=== PATIENT | male | born 1950 | race African-American/Black ===

== ENCOUNTER 2016-11-04 22:27 | Inpatient (IN) | payer MEDICARE ==
[2016-11-05 01:12] LABS: VENOUS BLOOD BASE EXCESS 0.6 mmol/L; VENOUS BLOOD HCO3 23.7 mmol/L (20-32); VENOUS BLOOD PCO2 33.4 mmHg (35-63); VENOUS BLOOD PH 7.47 (7.30-7.42)
[2016-11-05 01:13] LABS: HEMOGLOBIN 12.8 g/dL (13.5-17.0); HGB HCT DIFFERENCE 0.4; MEAN CORPUSCULAR HEMOGLOBIN 29.5 pg (27.0-33.4); MEAN CORPUSCULAR HGB CONC 33.7 g/dL (32.0-36.0); MEAN CORPUSCULAR VOLUME 88 fl (80-97); RED BLOOD COUNT 4.33 10^6/uL (4.35-5.55); RED CELL DISTRIBUTION WIDTH 14.8 % (11.5-14.0); WHITE BLOOD COUNT 10.3 10^3/uL (4.0-10.5)
[2016-11-05] MEDS ORDERED: NORMAL SALINE 1000 ML 1,000 ML IV ONE (01:15)
[2016-11-05] MEDS ORDERED: ACETAMINOPHEN 325 MG TABLET PO ONE (01:16)
[2016-11-05] MEDS ORDERED: CEFEPIME 2 GM/D5W RTU 50 ML IV ONE (01:17)
--- NOTE | 2016-11-05 01:17 | ER Document Report ---
ED General - General Chief Complaint: Fever Stated Complaint: BODY PAIN,CHILLS Notes: Patient is a 66-year-old male with past medical history of prostate cancer, currently taking an oral chemotherapy agent who presents with 24 hours of fever , rigors, generalized fatigue, nonproductive cough, and diarrhea. No known sick contacts. No recent history of similar illness. States that the symptoms of gotten progressively worse since onset. Nothing improves or worsens the symptoms. He has not spoken to his primary care physician regarding today's concerns. He denies any headache, neck pain, dysuria, hematuria, abdominal pain. No surgical history. TRAVEL OUTSIDE OF THE [place] IN LAST 30 DAYS: No - Related Data Allergies/Adverse Reactions: No Known Allergies Allergy (Verified 04/17/14 18:06) Past Medical History - General Information source: Patient, Relative - Social History Smoking Status: Never Smoker Frequency of alcohol use: None Drug Abuse: None Lives with: Family Family History: Reviewed & Not Pertinent, Hypertension - Past Medical History Cardiac Medical History: Reports: Hx Hypercholesterolemia Denies: Hx Coronary Artery Disease, Hx Heart Attack, Hx Hypertension Pulmonary Medical History: Denies: Hx Asthma, Hx Bronchitis, Hx COPD, Hx Pneumonia Neurological Medical History: Denies: Hx Cerebrovascular Accident, Hx Seizures Renal/ Medical History: Reports: Hx Benign Prostatic Hyperplasia Malignancy Medical History: Reports Hx Prostate Cancer GI Medical History: Denies: Hx Hepatitis, Hx Hiatal Hernia, Hx Ulcer Musculoskeltal Medical History: Denies Hx Arthritis, Reports Hx Musculoskeletal Deformity, Reports Hx Musculoskeletal Trauma Infectious Medical History: Denies: Hx Hepatitis Past Surgical History: Reports: Hx Genitourinary Surgery - TURP, Hx Orthopedic Surgery - Lt knee. Denies: Hx Open Heart Surgery, Hx Pacemaker - Immunizations Immunizations up to date: No Hx Diphtheria, Pertussis, Tetanus Vaccination: No Review of Systems - Review of Systems Notes: Constitutional: Positive for fever. HENT: Negative for sore throat. Eyes: Negative for visual changes. Cardiovascular: Negative for chest pain. Respiratory: Negative for shortness of breath. Positive for cough Gastrointestinal: Negative for abdominal pain, vomiting. Positive for diarrhea Genitourinary: Negative for dysuria. Musculoskeletal: Negative for back pain. Skin: Negative for rash. Neurological: Negative for headaches, weakness or numbness. 10 point ROS negative except as marked above and in HPI. Physical Exam - Vital signs Vitals: Temp Pulse Resp BP Pulse Ox 102.7 F H 141 H 22 H 106/78 96 11/04/16 23:06 11/04/16 23:06 11/04/16 23:06 11/04/16 23:06 11/04/16 23:06 Interpretation: Tachycardic, Tachypneic, Febrile Notes: PHYSICAL EXAMINATION: GENERAL: Ill-appearing but in no acute distress HEAD: Atraumatic, normocephalic. EYES: Pupils equal round and reactive to light, extraocular movements intact, sclera anicteric, conjunctiva are normal. ENT: nares patent, oropharynx clear without exudates. Dry mucous membranes. NECK: Normal range of motion, supple without lymphadenopathy LUNGS: Breath sounds clear to auscultation bilaterally and equal. No wheezes rales or rhonchi. HEART: Regular tachycardia without murmurs ABDOMEN: Soft, nontender, normoactive bowel sounds. No guarding, no rebound. No masses appreciated. EXTREMITIES: Normal range of motion, no pitting or edema. No cyanosis. NEUROLOGICAL: No focal neurological deficits. Moves all extremities spontaneously and on command. PSYCH: Normal mood, normal affect. SKIN: Warm, Dry, normal turgor, no rashes or lesions noted. Course - Re-evaluation Re-evalutation: 11/05/16 01:16 Patient arrives meeting Sirs criteria without an obvious source of this time. Full septic workup has been ordered. He is in no acute distress but does have tachycardia with associated fever. Concern for influenza versus pneumonia based on clinical history. IV fluids and antipyretics have been ordered. - Vital Signs Vital signs: Temp Pulse Resp BP Pulse Ox 102.7 F H 141 H 22 H 106/78 96 11/04/16 23:06 11/04/16 23:06 11/04/16 23:06 11/04/16 23:06 11/04/16 23:06 - Laboratory Result Diagrams: 11/04/16 00:45 11/04/16 00:45 Laboratory results interpreted by me: 11/04/16 11/04/16 11/04/16 00:45 00:45 00:45 RBC 4.33 L Hgb 12.8 L RDW 14.8 H Seg Neuts % (Manual) 87 H Band Neutrophils % 1 L Lymphocytes % (Manual) 5 L Abs Neuts (Manual) 9.1 H VBG pH 7.47 H VBG pCO2 33.4 L Potassium 3.3 L Glucose 112 H Urine Blood 11/05/16 02:20 RBC Hgb RDW Seg Neuts % (Manual) Band Neutrophils % Lymphocytes % (Manual) Abs Neuts (Manual) VBG pH VBG pCO2 Potassium Glucose Urine Blood LARGE H Discharge - Discharge Clinical Impression: Sepsis Qualifiers: Sepsis type: sepsis due to unspecified organism Qualified Code(s): A41.9 - Sepsis, unspecified organism Condition: Fair Disposition: ADMITTED INPATIENT Admitting Provider: [facility] Unit Admitted: Telemetry
[2016-11-05 01:20] LABS: PROTHROMBIN TIME 12.9 SEC (11.4-15.4)
[2016-11-05 01:33] LABS: BAND NEUTROPHILS % (MANUAL) 1 % (3-5); BASOPHILS % (MANUAL) 1 % (0-2); EOSINOPHILS % (MANUAL) 0 % (0-6); LYMPHOCYTES % (MANUAL) 5 % (13-45); TOTAL CELLS COUNTED 100
[2016-11-05 01:34] LABS: ALANINE AMINOTRANSFERASE 31 U/L (21-72); ALBUMIN 3.9 g/dL (3.5-5.0); ALKALINE PHOSPHATASE 47 U/L (38-126); ANION GAP 14 (5-19); ANISOCYTOSIS SLIGHT; ASPARTATE AMINO TRANSFERASE 26 U/L (17-59); BILIRUBIN,TOTAL 0.5 mg/dL (0.2-1.3); BLOOD UREA NITROGEN 13 mg/dL (7-20); CALCIUM 9.5 mg/dL (8.4-10.2); CARBON DIOXIDE 23 mmol/L (22-30); CHLORIDE 106 mmol/L (98-107); GLUCOSE 112 mg/dL (75-110); POTASSIUM 3.3 mmol/L (3.6-5.0); SODIUM 142.5 mmol/L (137-145); TOTAL PROTEIN 6.6 g/dL (6.3-8.2)
[2016-11-05] MEDS ORDERED: CEFEPIME INJ 2 GM VIAL ONE (01:44)
[2016-11-05 02:41] LABS: APPEARANCE,URINE CLEAR; BILIRUBIN,URINE NEGATIVE (NEGATIVE); GLUCOSE, URINE NEGATIVE (NEGATIVE); KETONES,URINE NEGATIVE (NEGATIVE); LEUKOCYTE ESTERASE,URINE NEGATIVE (NEGATIVE); NITRITE,URINE NEGATIVE (NEGATIVE); PROTEIN,URINE NEGATIVE (NEGATIVE); URINE SPECIFIC GRAVITY 1.016; UROBILINOGEN,URINE NEGATIVE mg/dL (<2.0)
[2016-11-05] MEDS ORDERED: LEVOFLOXACIN 750 MG/D5W RTU 150 ML IV ONE (02:54)
[2016-11-05] MEDS ORDERED: IBUPROFEN 600 MG TABLET PO ONE (03:05)
[2016-11-05] MEDS ORDERED: 1/2 NORMAL SALINE 1,000 ML IV PRN (04:25)
[2016-11-05] MEDS ORDERED: NORMAL SALINE 1000 ML 1,000 ML IV PRN ×2 (04:27→05:46)
[2016-11-05] MEDS ORDERED: AMPICILLIN SODIUM/SULBACTAM NA 3 GM in NORMAL SALINE 100 ML IV SCH (06:00)
[2016-11-05] MEDS ORDERED: AMPICILLIN SOD/SULBACTAM 3 GM VIAL IV PRN (06:11)
[2016-11-05] MEDS: METRONIDAZOLE 500 MG/NS RTU 100 ML IV SCH ×3 (06:38→17:18)
[2016-11-05 07:12] LABS: MAGNESIUM 1.4 mg/dL (1.6-2.3); PHOSPHORUS 2.2 mg/dL (2.5-4.5)
[2016-11-05 07:42] LABS: THYROID STIMULATING HORMONE 0.86 uIU/mL (0.47-4.68)
[2016-11-05] MEDS: ENOXAPARIN SODIUM INJ 40 MG/0.4 ML DISP.SYRIN SUBCUT SCH (08:11)
[2016-11-05] MEDS: ACETAMINOPHEN 325 MG TABLET PO PRN (08:11)
--- NOTE | 2016-11-05 09:25 | EKG REPORT ---
SEVERITY:- OTHERWISE NORMAL ECG - SINUS TACHYCARDIA : Confirmed by: Foreign Cortes MD 05-Nov-2016 09:24:50
[2016-11-05] MEDS: AMPICILLIN SODIUM/SULBACTAM NA 3 GM in NORMAL SALINE 100 ML IV SCH ×2 (09:33→15:29)
[2016-11-05 16:00] LABS: ABSOLUTE LYMPHOCYTES (AUTO) 0.7 10^3/uL (0.5-4.7); ABSOLUTE MONOCYTES (AUTO) 0.9 10^3/uL (0.1-1.4); ABSOLUTE NEUT (AUTO) 4.7 10^3/uL (1.7-8.2); BASOPHILS % (AUTO) 0.4 % (0-2); EOSINOPHILS % (AUTO) 0.5 % (0-6); HEMATOCRIT 34.1 % (37.9-51.0); HEMOGLOBIN 11.5 g/dL (13.5-17.0); HGB HCT DIFFERENCE 0.4; LYMPHOCYTES % (AUTO) 11.4 % (13-45); MEAN CORPUSCULAR HEMOGLOBIN 29.6 pg (27.0-33.4); MEAN CORPUSCULAR HGB CONC 33.6 g/dL (32.0-36.0); MEAN CORPUSCULAR VOLUME 88 fl (80-97); MONOCYTES % (AUTO) 14.7 % (3-13); RED BLOOD COUNT 3.87 10^6/uL (4.35-5.55); RED CELL DISTRIBUTION WIDTH 14.9 % (11.5-14.0); WHITE BLOOD COUNT 6.4 10^3/uL (4.0-10.5)
--- NOTE | 2016-11-05 16:20 | PDOC H&P ---
History of Present Illness Admission Date/PCP: 11/05/16 05:46 KENZIE DALTON History of Present Illness: MARIAA ALCANTAR JR is a 66 year old male. He has history of malignant neoplasm of the prostate gland, he is on monoclonal antibody for treatment of prostate cancer. He came to the emergency room with a one-day history of high fever with temperature 103, generalized body weakness, nonproductive cough and diarrhea. There is no history of recent travel, he has no pets. There is no apparent foci of infection, the chest x-ray was negative, on auscultation of his lung. He has bibasilar crackles and because of these CT chest was done and it showed minimal basilar pleural reaction and opacities, there is no masses or pneumothorax. The dipstick urinalysis did not suggest any infection. The abdomen is benign. There is no tenderness. There is no leukocytosis, the rapid flu test was negative. The high fever suggest infection, CT scan of the abdomen and pelvis will be requested to rule out intra-abdominal abscess though this is unlikely with benign examination of the abdomen Past Medical History Cardiac Medical History: Reports: Hyperlipidema Malignancy Medical History: Reports: Pancreatic Cancer Past Surgical History Past Surgical History: Reports: Orthopedic Surgery - Lt knee Social History Information Source: Patient Lives with: Family Smoking Status: Current Every Day Smoker Last Time Smoked: 50 Frequency of Alcohol Use: None Hx Recreational Drug Use: No Hx Prescription Drug Abuse: No - Advance Directive Resuscitation Status: Full Code Family History Family History: Reviewed & Not Pertinent, Hypertension Parental Family History Reviewed: Yes Children Family History Reviewed: Yes Sibling(s) Family History Reviewed.: Yes Medication/Allergy Home Medications: Enzalutamide [Xtandi] 80 mg PO DAILY 11/05/16 Prednisone 5 mg PO BID 11/05/16 Rosuvastatin Calcium 20 mg PO DAILY 11/05/16 Allergies/Adverse Reactions: No Known Allergies Allergy (Verified 11/05/16 04:25) Review of Systems Constitutional: PRESENT: chills, fatigue, fever(s), night sweats, weakness Eyes: ABSENT: visual disturbances Ears: ABSENT: hearing changes Cardiovascular: ABSENT: chest pain, dyspnea on exertion, edema, orthropnea, palpitations Respiratory: PRESENT: cough Gastrointestinal: ABSENT: abdominal pain, constipation, diarrhea, hematemesis, hematochezia, nausea, vomiting Genitourinary: ABSENT: dysuria, hematuria Musculoskeletal: ABSENT: joint swelling Integumentary: ABSENT: rash, wounds Neurological: ABSENT: abnormal gait, abnormal speech, confusion, dizziness, focal weakness, syncope Psychiatric: ABSENT: anxiety, depression, homidical ideation, suicidal ideation Endocrine: ABSENT: cold intolerance, heat intolerance, menstrual abnormalities, polydipsia, polyuria Hematologic/Lymphatic: ABSENT: easy bleeding, easy bruising, lymphadenopathy Physical Exam Vital Signs: Temp Pulse Resp BP Pulse Ox 98.4 F 77 14 96/60 L 95 11/05/16 11:50 11/05/16 14:00 11/05/16 11:50 11/05/16 11:50 11/05/16 11:50 General appearance: PRESENT: no acute distress Eye exam: PRESENT: EOMI, PERRLA Mouth exam: PRESENT: moist Neck exam: PRESENT: full ROM Respiratory exam: PRESENT: crackles Cardiovascular exam: PRESENT: +S1, +S2 GI/Abdominal exam: PRESENT: normal bowel sounds, soft Rectal exam: PRESENT: deferred Neurological exam: PRESENT: alert, awake, oriented to person, oriented to place , oriented to time, oriented to situation, CN II-XII grossly intact. ABSENT: motor sensory deficit Psychiatric exam: PRESENT: appropriate affect, normal mood. ABSENT: suicidal ideation Skin exam: PRESENT: dry, intact, warm Results Laboratory Results: 11/05/16 11/05/16 11/05/16 06:28 06:28 06:28 Phosphorus 2.2 L Magnesium 1.4 L Ammonia 24.5 Amylase 43 Lipase 71.0 TSH 0.86 Free T4 0.70 L 11/05/16 11/05/16 11/05/16 06:28 06:28 12:56 Creatine Kinase 56 57 Troponin I < 0.012 11/05/16 12:56 Creatine Kinase Troponin I < 0.012 Impressions: Chest X-Ray 11/04/16 23:09 IMPRESSION: NO ACUTE RADIOGRAPHIC FINDING IN THE CHEST. Chest CT 11/05/16 00:00 IMPRESSION: Minimal bibasilar opacities and pleural reaction. Trace pericardial effusion. No pulmonary emboli. Minimal progression of thoracic bony metastatic disease. Assessment & Plan - Diagnosis (1) Fever Qualifiers: Fever type: unspecified Qualified Code(s): R50.9 - Fever, unspecified Is this a current diagnosis for this admission?: YesPlan: The differential diagnoses is long ,he will empirically be treated with IV antibiotic, Unasyn and CT scan of the abdomen and pelvis was ordered (2) Malignant neoplasm of prostate Is this a current diagnosis for this admission?: Yes
[2016-11-05 16:23] LABS: ALANINE AMINOTRANSFERASE 37 U/L (21-72); ALBUMIN 2.9 g/dL (3.5-5.0); ALKALINE PHOSPHATASE 38 U/L (38-126); ANION GAP 10 (5-19); ASPARTATE AMINO TRANSFERASE 30 U/L (17-59); BILIRUBIN,TOTAL 0.3 mg/dL (0.2-1.3); BLOOD UREA NITROGEN 12 mg/dL (7-20); CALCIUM 8.1 mg/dL (8.4-10.2); CARBON DIOXIDE 21 mmol/L (22-30); CHLORIDE 109 mmol/L (98-107); GLUCOSE 105 mg/dL (75-110); SODIUM 140.4 mmol/L (137-145); TOTAL PROTEIN 5.1 g/dL (6.3-8.2)
[2016-11-05 16:25] LABS: POTASSIUM 2.9 mmol/L (3.6-5.0)
[2016-11-05] MEDS ORDERED: (PENDING PHARMACY ID) (Rosuvastatin Calcium [Rosuvastatin Calcium] 20 MG) PO SCH (16:30)
[2016-11-05 17:51] LABS: APPEARANCE,URINE CLEAR; BILIRUBIN,URINE NEGATIVE (NEGATIVE); GLUCOSE, URINE NEGATIVE (NEGATIVE); KETONES,URINE NEGATIVE (NEGATIVE); LEUKOCYTE ESTERASE,URINE NEGATIVE (NEGATIVE); NITRITE,URINE NEGATIVE (NEGATIVE); PROTEIN,URINE NEGATIVE (NEGATIVE); URINE SPECIFIC GRAVITY 1.014; UROBILINOGEN,URINE NEGATIVE mg/dL (<2.0)
[2016-11-05] MEDS ORDERED: PREDNISONE 5 MG TABLET PO SCH (18:00)
[2016-11-05 18:11] LABS: URINE BARBITURATES SCREEN NEGATIVE; URINE METHADONE SCREEN NEGATIVE; URINE PHENCYCLIDINE SCREEN NEGATIVE
[2016-11-05] MEDS: POTASSI CL 20 MEQ/50 ML RIDER 20 MEQ/50 ML RTUPB IV SCH ×2 (20:20→23:03)
[2016-11-05] MEDS: NORMAL SALINE 1000 ML 1,000 ML IV PRN (20:38)
[2016-11-06] MEDS: AMPICILLIN SODIUM/SULBACTAM NA 3 GM in NORMAL SALINE 100 ML IV SCH ×4 (01:14→16:08)
[2016-11-06] MEDS: METRONIDAZOLE 500 MG/NS RTU 100 ML IV SCH ×4 (03:20→17:52)
[2016-11-06 05:42] LABS: ABSOLUTE EOSINOPHILS # (AUTO) 0.1 10^3/uL (0.0-0.6); ABSOLUTE LYMPHOCYTES (AUTO) 0.8 10^3/uL (0.5-4.7); ABSOLUTE MONOCYTES (AUTO) 0.7 10^3/uL (0.1-1.4); ABSOLUTE NEUT (AUTO) 3.7 10^3/uL (1.7-8.2); BASOPHILS % (AUTO) 0.5 % (0-2); EOSINOPHILS % (AUTO) 1.3 % (0-6); HEMATOCRIT 34.4 % (37.9-51.0); HEMOGLOBIN 11.8 g/dL (13.5-17.0); LYMPHOCYTES % (AUTO) 15.1 % (13-45); MEAN CORPUSCULAR HEMOGLOBIN 30.2 pg (27.0-33.4); MEAN CORPUSCULAR HGB CONC 34.4 g/dL (32.0-36.0); MEAN CORPUSCULAR VOLUME 88 fl (80-97); MONOCYTES % (AUTO) 13.6 % (3-13); RED BLOOD COUNT 3.92 10^6/uL (4.35-5.55); SEGMENTED NEUTROPHILS % (AUTO) 69.5 % (42-78); WHITE BLOOD COUNT 5.3 10^3/uL (4.0-10.5)
[2016-11-06 06:02] LABS: ALANINE AMINOTRANSFERASE 55 U/L (21-72); ALBUMIN 2.7 g/dL (3.5-5.0); ALKALINE PHOSPHATASE 50 U/L (38-126); ANION GAP 8 (5-19); ASPARTATE AMINO TRANSFERASE 46 U/L (17-59); BILIRUBIN,TOTAL 0.4 mg/dL (0.2-1.3); BLOOD UREA NITROGEN 7 mg/dL (7-20); CALCIUM 8.2 mg/dL (8.4-10.2); CARBON DIOXIDE 21 mmol/L (22-30); CHLORIDE 112 mmol/L (98-107); CHOLESTEROL 141.93 mg/dL (0-200); CREATININE RESULT 0.64 mg/dL (0.52-1.25); Direct HDL 42 mg/dL (>40); GLUCOSE 79 mg/dL (75-110); POTASSIUM 3.5 mmol/L (3.6-5.0); SODIUM 141.3 mmol/L (137-145); TOTAL PROTEIN 5.2 g/dL (6.3-8.2); TRIGLYCERIDES 67 mg/dL (<150)
[2016-11-06 06:12] LABS: DIRECT LDL 79 mg/dL (<100)
[2016-11-06] MEDS: ENOXAPARIN SODIUM INJ 40 MG/0.4 ML DISP.SYRIN SUBCUT SCH (08:52)
[2016-11-06] MEDS: ATORVASTATIN CALCIUM 40 MG TABLET PO SCH (10:18)
--- NOTE | 2016-11-06 19:44 | PDOC PROGRESS REPORT ---
Subjective Progress Note for:: 11/06/16 Subjective:: Patient continue to experience meal related nausea and poor oral intake. There is no definite vomiting. Diarrhea do persist with some degree of resolution. He denied any significant abdominal pain. No chest pain or difficulty with breathing. No recurrent fever since admission. Reported urinary frequency. Physical Exam Vital Signs: Temp Pulse Resp BP Pulse Ox 99.9 F 62 22 H 126/56 H 96 11/06/16 15:28 11/06/16 15:28 11/06/16 15:28 11/06/16 15:28 11/06/16 15:28 Intake & Output 11/05/16 11/06/16 11/07/16 06:59 06:59 06:59 Intake Total 0 3770 1420 Output Total 0 700 1250 Balance 0 3070 170 Weight 76.4 kg 79.6 kg General appearance: PRESENT: no acute distress Head exam: PRESENT: atraumatic, normocephalic Eye exam: PRESENT: conjunctiva pink, EOMI, PERRLA. ABSENT: scleral icterus Ear exam: PRESENT: normal external ear exam Mouth exam: PRESENT: moist, tongue midline Teeth exam: PRESENT: poor dentation Throat exam: ABSENT: post pharyngeal erythema, tonsillar erythema, tonsillar exudate, tonsillogmegaly, other Neck exam: PRESENT: full ROM. ABSENT: carotid bruit, JVD, lymphadenopathy, thyromegaly Respiratory exam: PRESENT: accessory muscle use, chest wall tenderness, clear to auscultation rebecca, crackles, decreased breath sounds, prolonged expiratory phas, rales, retraction, rhonchi, stridor, symmetrical, tachypnea, unlabored, wheezes, other Cardiovascular exam: PRESENT: RRR. ABSENT: diastolic murmur, rubs, systolic murmur GI/Abdominal exam: PRESENT: normal bowel sounds, soft. ABSENT: distended, guarding, mass, organolmegaly, rebound, tenderness Gentrourinary exam: ABSENT: ecchymosis, erythema, lacerations, lesions, scrotal swelling, testicular tenderness, urethral discharge, indwelling catheter, other Musculoskeletal exam: PRESENT: deformity - of arthritis, full ROM Neurological exam: PRESENT: alert, awake, oriented to person, oriented to place , oriented to time, oriented to situation, CN II-XII grossly intact. ABSENT: motor sensory deficit Psychiatric exam: PRESENT: appropriate affect, normal mood. ABSENT: homicidal ideation, suicidal ideation Skin exam: PRESENT: dry, intact, warm. ABSENT: cyanosis, rash Results Laboratory Results: 11/06/16 05:20 11/06/16 05:20 11/05/16 11/05/16 11/06/16 22:50 22:50 05:20 WBC 5.3 RBC 3.92 L Hgb 11.8 L Hct 34.4 L MCV 88 MCH 30.2 MCHC 34.4 RDW 15.0 H Plt Count 158 Seg Neutrophils % 69.5 Lymphocytes % 15.1 Monocytes % 13.6 H Eosinophils % 1.3 Basophils % 0.5 Absolute Neutrophils 3.7 Absolute Lymphocytes 0.8 Absolute Monocytes 0.7 Absolute Eosinophils 0.1 Absolute Basophils 0.0 Sodium Potassium Chloride Carbon Dioxide Anion Gap BUN Creatinine Est GFR ( Amer) Est GFR (Non-Af Amer) Glucose Calcium Total Bilirubin AST ALT Alkaline Phosphatase Total Protein Albumin Triglycerides Cholesterol LDL Cholesterol Direct VLDL Cholesterol HDL Cholesterol Stool Occult Blood NEGATIVE Stool for White Cells NO WBCs SEEN 11/06/16 05:20 WBC RBC Hgb Hct MCV MCH MCHC RDW Plt Count Seg Neutrophils % Lymphocytes % Monocytes % Eosinophils % Basophils % Absolute Neutrophils Absolute Lymphocytes Absolute Monocytes Absolute Eosinophils Absolute Basophils Sodium 141.3 Potassium 3.5 L Chloride 112 H Carbon Dioxide 21 L Anion Gap 8 BUN 7 Creatinine 0.64 Est GFR ( Amer) > 60 Est GFR (Non-Af Amer) > 60 Glucose 79 Calcium 8.2 L Total Bilirubin 0.4 AST 46 ALT 55 Alkaline Phosphatase 50 Total Protein 5.2 L Albumin 2.7 L Triglycerides 67 Cholesterol 141.93 LDL Cholesterol Direct 79 VLDL Cholesterol 13.0 HDL Cholesterol 42 Stool Occult Blood Stool for White Cells 11/05/16 11/05/16 11/05/16 06:28 06:28 12:56 Creatine Kinase 56 57 Troponin I < 0.012 11/05/16 11/05/16 11/05/16 12:56 18:51 18:51 Creatine Kinase 51 L Troponin I < 0.012 < 0.012 Impressions: Chest X-Ray 11/04/16 23:09 IMPRESSION: NO ACUTE RADIOGRAPHIC FINDING IN THE CHEST. Abdomen/Pelvis CT 11/05/16 00:00 IMPRESSION: Small pericarditis. Small colonic diverticulosis. No acute or suspicious CT finding of the abdomen pelvis. Chest CT 11/05/16 00:00 IMPRESSION: Minimal bibasilar opacities and pleural reaction. Trace pericardial effusion. No pulmonary emboli. Minimal progression of thoracic bony metastatic disease. Assessment & Plan - Diagnosis (1) Hypokalemia due to loss of potassium Is this a current diagnosis for this admission?: YesPlan: Patient will receive potassium supplementation through K-rider due to his nausea and for adequate correction. (2) Hypomagnesemia Is this a current diagnosis for this admission?: YesPlan: Patient will receive magnesium replacement. This may be contributing to his low potassium level. (3) Fever Qualifiers: Fever type: unspecified Qualified Code(s): R50.9 - Fever, unspecified Is this a current diagnosis for this admission?: YesPlan: Continue with current medication management. Patient remain afebrile since admission on current antibiotic management. (4) Malignant neoplasm of prostate Is this a current diagnosis for this admission?: YesPlan: Maintain on his home medication management. (5) Sepsis Qualifiers: Sepsis type: sepsis due to unspecified organism Qualified Code(s): A41.9 - Sepsis, unspecified organism Is this a current diagnosis for this admission?: YesPlan: Continue with IV Flagyl and Unsay coverage. Follow up on his blood and urine culture findings. - Time Time Spent with patient: 25-34 minutes Medications reviewed and adjusted accordingly: Yes - Patient will continue on IV Unasyn and Flagyl covearge. Anticipated discharge: Home with Homehealth Within: Other - Inpatient Certification Medical Necessity: Significant Comorbidiites Make Outpatient Treatment Too Risky , Need Close Monitoring Due to Risk of Patient Decompensation, Need For IV Fluids, Need for IV Antibiotics, Risk of Complication if Not Cared For in Hospital, Risk of Diagnosis Which Will Require Inpatient Eval/Care/Monitoring Post Hospital Care: D/C Mixed Animal Veterinarian Documentation - Plan Summary Plan Summary: I will obtain stool for C. difficile toxin titer in view of his presentation with diarrhea and recent antibiotic therapy exposure. Maintain on IV fluid support. Start on IV Zofran 4mg [id number] prn for nausea. Start on Imodium AD 2mg po qid prn for diarrhea if stool C. difficile toxin is negative.
[2016-11-06] MEDS ORDERED: MAGNESIUM SULFATE/D5W 1 GM/100 ML RTUPB IV SCH (20:00)
[2016-11-06] MEDS: ONDANSETRON HCL INJ/PF 4 MG/2 ML SDV IV PRN (20:43)
[2016-11-06] MEDS: ACETAMINOPHEN 325 MG TABLET PO PRN (20:45)
[2016-11-06] MEDS: POTASSI CL 20 MEQ/50 ML RIDER 20 MEQ/50 ML RTUPB IV SCH ×2 (21:48→23:42)
[2016-11-07] MEDS ORDERED: MAGNESIUM SULFATE/D5W 1 GM/100 ML RTUPB IV ONE (00:15)
[2016-11-07] MEDS: METRONIDAZOLE 500 MG/NS RTU 100 ML IV SCH ×2 (02:23→06:10)
[2016-11-07] MEDS ORDERED: POTASSI CL 20 MEQ/50 ML RIDER 20 MEQ/50 ML RTUPB IV SCH (02:30)
[2016-11-07] MEDS: ACETAMINOPHEN 325 MG TABLET PO PRN (03:41)
[2016-11-07] MEDS: AMPICILLIN SODIUM/SULBACTAM NA 3 GM in NORMAL SALINE 100 ML IV SCH ×2 (03:46→03:51)
[2016-11-07 06:57] LABS: ABSOLUTE LYMPHOCYTES (AUTO) 0.4 10^3/uL (0.5-4.7); ABSOLUTE MONOCYTES (AUTO) 0.6 10^3/uL (0.1-1.4); ABSOLUTE NEUT (AUTO) 5.8 10^3/uL (1.7-8.2); BASOPHILS % (AUTO) 0.5 % (0-2); EOSINOPHILS % (AUTO) 0.4 % (0-6); HEMATOCRIT 36.7 % (37.9-51.0); HEMOGLOBIN 12.4 g/dL (13.5-17.0); HGB HCT DIFFERENCE 0.5; LYMPHOCYTES % (AUTO) 6.1 % (13-45); MEAN CORPUSCULAR HEMOGLOBIN 29.3 pg (27.0-33.4); MEAN CORPUSCULAR HGB CONC 33.9 g/dL (32.0-36.0); MEAN CORPUSCULAR VOLUME 87 fl (80-97); MONOCYTES % (AUTO) 9.1 % (3-13); RED BLOOD COUNT 4.24 10^6/uL (4.35-5.55); RED CELL DISTRIBUTION WIDTH 14.3 % (11.5-14.0); SEGMENTED NEUTROPHILS % (AUTO) 83.9 % (42-78); WHITE BLOOD COUNT 6.9 10^3/uL (4.0-10.5)
[2016-11-07 07:04] LABS: ALANINE AMINOTRANSFERASE 44 U/L (21-72); ALBUMIN 3.1 g/dL (3.5-5.0); ALKALINE PHOSPHATASE 59 U/L (38-126); ANION GAP 11 (5-19); ASPARTATE AMINO TRANSFERASE 30 U/L (17-59); BILIRUBIN,TOTAL 0.5 mg/dL (0.2-1.3); BLOOD UREA NITROGEN 4 mg/dL (7-20); CALCIUM 8.4 mg/dL (8.4-10.2); CARBON DIOXIDE 23 mmol/L (22-30); CHLORIDE 103 mmol/L (98-107); CREATININE RESULT 0.62 mg/dL (0.52-1.25); GLUCOSE 92 mg/dL (75-110); POTASSIUM 3.3 mmol/L (3.6-5.0); SODIUM 137.3 mmol/L (137-145); TOTAL PROTEIN 5.8 g/dL (6.3-8.2)
[2016-11-07] MEDS: ENOXAPARIN SODIUM INJ 40 MG/0.4 ML DISP.SYRIN SUBCUT SCH (09:03)
[2016-11-07] MEDS: ONDANSETRON HCL INJ/PF 4 MG/2 ML SDV IV PRN ×2 (09:07→14:05)
[2016-11-07] MEDS: CEFEPIME HCL 2 GM in DEXTROSE 5%-WATER 50 ML IV SCH ×2 (09:07→23:29)
[2016-11-07] MEDS: ATORVASTATIN CALCIUM 40 MG TABLET PO SCH (09:07)
[2016-11-07] MEDS ORDERED: CEFEPIME 2 GM/D5W RTU 50 ML IV SCH (10:00)
[2016-11-07] MEDS: NORMAL SALINE 1000 ML 1,000 ML IV PRN (11:43)
[2016-11-07] MEDS: LEVOFLOXACIN 750 MG/D5W RTU 750 MG/150 ML RTUPB IV SCH (11:45)
[2016-11-07] MEDS: POTASSI CL 20 MEQ/50 ML RIDER 20 MEQ/50 ML RTUPB IV SCH ×2 (20:22→23:40)
--- NOTE | 2016-11-07 22:01 | PDOC PROGRESS REPORT ---
Subjective Progress Note for:: 11/07/16 Subjective:: Patient continue to experience meal related nausea and poor oral intake. There is no definite vomiting. No significant diarrhea so far today.He denied any significant abdominal pain. No chest pain or difficulty with breathing. There is recurrent fever since last clinical assessment. Reported urinary frequency. Patient received 2gm of Magnesium sulfate and about 45 mEq of potassium chloride IV riders since last clinical evaluation. Last bag of K-rider was discontinue due to reported associated tachycardia by nursing staff. Physical Exam Vital Signs: Temp Pulse Resp BP Pulse Ox 99.8 F 58 L 19 124/58 L 97 11/07/16 19:39 11/07/16 19:39 11/07/16 19:39 11/07/16 19:39 11/07/16 19:39 Intake & Output 11/06/16 11/07/16 11/08/16 06:59 06:59 06:59 Intake Total 3770 3385 1650 Output Total 700 2450 Balance 3070 935 1650 Weight 79.6 kg 79.5 kg General appearance: PRESENT: no acute distress Head exam: PRESENT: atraumatic, normocephalic Eye exam: PRESENT: conjunctiva pink, EOMI, PERRLA. ABSENT: scleral icterus Ear exam: PRESENT: normal external ear exam Mouth exam: PRESENT: moist, tongue midline Respiratory exam: ABSENT: accessory muscle use, chest wall tenderness, clear to auscultation rebecca, crackles, decreased breath sounds, prolonged expiratory phas, rales, retraction, rhonchi, stridor, symmetrical, tachypnea, unlabored, wheezes , other Cardiovascular exam: PRESENT: RRR. ABSENT: diastolic murmur, rubs, systolic murmur GI/Abdominal exam: PRESENT: normal bowel sounds, soft. ABSENT: distended, guarding, mass, organolmegaly, rebound, tenderness Musculoskeletal exam: PRESENT: ambulatory, deformity - due to osteoarhritis, full ROM Neurological exam: PRESENT: alert, awake, oriented to person, oriented to place , oriented to time, oriented to situation, CN II-XII grossly intact. ABSENT: motor sensory deficit Psychiatric exam: PRESENT: appropriate affect, normal mood Skin exam: PRESENT: dry, intact, warm. ABSENT: cyanosis, rash Results Laboratory Results: 11/07/16 05:56 11/07/16 05:56 11/07/16 11/07/16 05:56 05:56 WBC 6.9 RBC 4.24 L Hgb 12.4 L Hct 36.7 L MCV 87 MCH 29.3 MCHC 33.9 RDW 14.3 H Plt Count 160 Seg Neutrophils % 83.9 H Lymphocytes % 6.1 L Monocytes % 9.1 Eosinophils % 0.4 Basophils % 0.5 Absolute Neutrophils 5.8 Absolute Lymphocytes 0.4 L Absolute Monocytes 0.6 Absolute Eosinophils 0.0 Absolute Basophils 0.0 Sodium 137.3 Potassium 3.3 L Chloride 103 Carbon Dioxide 23 Anion Gap 11 BUN 4 L Creatinine 0.62 Est GFR ( Amer) > 60 Est GFR (Non-Af Amer) > 60 Glucose 92 Calcium 8.4 Total Bilirubin 0.5 AST 30 ALT 44 Alkaline Phosphatase 59 Total Protein 5.8 L Albumin 3.1 L 11/05/16 11/05/16 11/05/16 06:28 06:28 12:56 Creatine Kinase 56 57 Troponin I < 0.012 11/05/16 11/05/16 11/05/16 12:56 18:51 18:51 Creatine Kinase 51 L Troponin I < 0.012 < 0.012 Impressions: Chest X-Ray 11/04/16 23:09 IMPRESSION: NO ACUTE RADIOGRAPHIC FINDING IN THE CHEST. Abdomen/Pelvis CT 11/05/16 00:00 IMPRESSION: Small pericarditis. Small colonic diverticulosis. No acute or suspicious CT finding of the abdomen pelvis. Chest CT 11/05/16 00:00 IMPRESSION: Minimal bibasilar opacities and pleural reaction. Trace pericardial effusion. No pulmonary emboli. Minimal progression of thoracic bony metastatic disease. Assessment & Plan - Diagnosis (1) Hypokalemia due to loss of potassium Is this a current diagnosis for this admission?: YesPlan: Patient will receive 40 mEq potassium supplementation through IV K-rider due to his nausea and for adequate correction. (2) Hypomagnesemia Is this a current diagnosis for this admission?: YesPlan: Patient received 2 gram of magnesium sulfate replacement therap since lat clinical assessment with resolved hypomagnesemia. (3) Fever Qualifiers: Fever type: unspecified Qualified Code(s): R50.9 - Fever, unspecified Is this a current diagnosis for this admission?: YesPlan: D/C IV Unasyn and Flagyl due to recurrent fever. In view of his chest CT findings, there is concern for presumable bibasilar pneumonia with inadequate antibiotic coverage. I will start him on IV Levofloxacin and Cefepime coverage. Follow up on pending blood culture findings. (4) Malignant neoplasm of prostate Is this a current diagnosis for this admission?: YesPlan: Maintain on Xtandi therapy for metastatic prostate cancer management although this may be contributing to his septic state and possible fever from hot flashes. Maintain on Zofran 4 mg IV [id number] for management of his nausea to improve po intake. Add Beneprotein and Ensure supplementation for nutritional support. (5) Sepsis Qualifiers: Sepsis type: sepsis due to unspecified organism Qualified Code(s): A41.9 - Sepsis, unspecified organism Is this a current diagnosis for this admission?: Yes - Time Time Spent with patient: 25-34 minutes Medications reviewed and adjusted accordingly: Yes Anticipated discharge: Home with Homehealth Within: Other - Inpatient Certification Medical Necessity: Need For IV Fluids, Need For Continuous Telemetry Monitoring , Need for IV Antibiotics, Risk of Complication if Not Cared For in Hospital, Risk of Diagnosis Which Will Require Inpatient Eval/Care/Monitoring Post Hospital Care: D/C Network Technical Analyst Documentation - Plan Summary Plan Summary: D/C IV Unasyn and Flagyl. Start on IV Levaquin and Cefepime therapy. Potassium replacement, and Nutritional support.
[2016-11-08] MEDS: ACETAMINOPHEN 325 MG TABLET PO PRN ×2 (00:45→23:48)
[2016-11-08 06:14] LABS: ABSOLUTE MONOCYTES (AUTO) 0.7 10^3/uL (0.1-1.4); ABSOLUTE NEUT (AUTO) 1.9 10^3/uL (1.7-8.2); BASOPHILS % (AUTO) 0.4 % (0-2); EOSINOPHILS % (AUTO) 1.3 % (0-6); HEMOGLOBIN 11.9 g/dL (13.5-17.0); HGB HCT DIFFERENCE 0.7; LYMPHOCYTES % (AUTO) 26.9 % (13-45); MEAN CORPUSCULAR HEMOGLOBIN 29.5 pg (27.0-33.4); MEAN CORPUSCULAR HGB CONC 34.1 g/dL (32.0-36.0); MEAN CORPUSCULAR VOLUME 87 fl (80-97); MONOCYTES % (AUTO) 18.9 % (3-13); RED BLOOD COUNT 4.05 10^6/uL (4.35-5.55); RED CELL DISTRIBUTION WIDTH 14.6 % (11.5-14.0); SEGMENTED NEUTROPHILS % (AUTO) 52.5 % (42-78); WHITE BLOOD COUNT 3.6 10^3/uL (4.0-10.5)
[2016-11-08 06:26] LABS: ALANINE AMINOTRANSFERASE 42 U/L (21-72); ALBUMIN 2.5 g/dL (3.5-5.0); ALKALINE PHOSPHATASE 52 U/L (38-126); ANION GAP 10 (5-19); ASPARTATE AMINO TRANSFERASE 34 U/L (17-59); BILIRUBIN,TOTAL 0.3 mg/dL (0.2-1.3); BLOOD UREA NITROGEN 6 mg/dL (7-20); CALCIUM 8.3 mg/dL (8.4-10.2); CARBON DIOXIDE 21 mmol/L (22-30); CHLORIDE 107 mmol/L (98-107); CREATININE RESULT 0.71 mg/dL (0.52-1.25); GLUCOSE 76 mg/dL (75-110); POTASSIUM 3.8 mmol/L (3.6-5.0); SODIUM 138.2 mmol/L (137-145); TOTAL PROTEIN 5.1 g/dL (6.3-8.2)
[2016-11-08] MEDS: ENOXAPARIN SODIUM INJ 40 MG/0.4 ML DISP.SYRIN SUBCUT SCH (08:45)
--- NOTE | 2016-11-08 08:57 | PDOC PROGRESS REPORT ---
Subjective Progress Note for:: 11/08/16 Subjective:: Episode of low grade 5temp at 100F overnight. No nausea so far today. No chest saran or difficulty with breathing. Remain on IV Levaquin and Cefepime coverage. Chest X ray show some improvement in air space disease process. Physical Exam Vital Signs: Temp Pulse Resp BP Pulse Ox 97.9 F 47 L 18 134/62 H 99 11/08/16 07:18 11/08/16 07:18 11/08/16 07:18 11/08/16 07:18 11/08/16 07:18 Intake & Output 11/07/16 11/08/16 11/09/16 06:59 06:59 06:59 Intake Total 3385 1890 Output Total 2450 650 Balance 935 1240 Weight 79.5 kg 79.5 kg General appearance: PRESENT: no acute distress Head exam: PRESENT: atraumatic, normocephalic Eye exam: PRESENT: conjunctiva pink, EOMI, PERRLA. ABSENT: scleral icterus Mouth exam: PRESENT: moist, tongue midline Throat exam: ABSENT: post pharyngeal erythema, tonsillar erythema, tonsillar exudate, tonsillogmegaly, other Neck exam: PRESENT: full ROM. ABSENT: carotid bruit, JVD, lymphadenopathy, thyromegaly Respiratory exam: ABSENT: accessory muscle use, chest wall tenderness, clear to auscultation rebecca, crackles, decreased breath sounds, prolonged expiratory phas, rales, retraction, rhonchi, stridor, symmetrical, tachypnea, unlabored, wheezes , other Cardiovascular exam: PRESENT: RRR. ABSENT: diastolic murmur, rubs, systolic murmur GI/Abdominal exam: PRESENT: normal bowel sounds, soft. ABSENT: distended, guarding, mass, organolmegaly, rebound, tenderness Extremities exam: PRESENT: full ROM Musculoskeletal exam: PRESENT: ambulatory, deformity - due to arthritis, full ROM Neurological exam: PRESENT: alert, awake, oriented to person, oriented to place , oriented to time, oriented to situation, CN II-XII grossly intact. ABSENT: motor sensory deficit Psychiatric exam: PRESENT: appropriate affect, normal mood. ABSENT: homicidal ideation, suicidal ideation Skin exam: PRESENT: dry, intact, warm. ABSENT: cyanosis, rash Results Laboratory Results: 11/08/16 05:33 11/08/16 05:33 11/08/16 11/08/16 05:33 05:33 WBC 3.6 L RBC 4.05 L Hgb 11.9 L Hct 35.0 L MCV 87 MCH 29.5 MCHC 34.1 RDW 14.6 H Plt Count 174 Seg Neutrophils % 52.5 Lymphocytes % 26.9 Monocytes % 18.9 H Eosinophils % 1.3 Basophils % 0.4 Absolute Neutrophils 1.9 Absolute Lymphocytes 1.0 Absolute Monocytes 0.7 Absolute Eosinophils 0.0 Absolute Basophils 0.0 Sodium 138.2 Potassium 3.8 Chloride 107 Carbon Dioxide 21 L Anion Gap 10 BUN 6 L Creatinine 0.71 Est GFR ( Amer) > 60 Est GFR (Non-Af Amer) > 60 Glucose 76 Calcium 8.3 L Total Bilirubin 0.3 AST 34 ALT 42 Alkaline Phosphatase 52 Total Protein 5.1 L Albumin 2.5 L 11/05/16 11/05/16 11/05/16 06:28 06:28 12:56 Creatine Kinase 56 57 Troponin I < 0.012 11/05/16 11/05/16 11/05/16 12:56 18:51 18:51 Creatine Kinase 51 L Troponin I < 0.012 < 0.012 Impressions: Abdomen/Pelvis CT 11/05/16 00:00 IMPRESSION: Small pericarditis. Small colonic diverticulosis. No acute or suspicious CT finding of the abdomen pelvis. Chest CT 11/05/16 00:00 IMPRESSION: Minimal bibasilar opacities and pleural reaction. Trace pericardial effusion. No pulmonary emboli. Minimal progression of thoracic bony metastatic disease. Chest X-Ray 11/08/16 07:00 IMPRESSION: Minimal left basilar densities as noted above. Assessment & Plan - Diagnosis (1) Hypokalemia due to loss of potassium Is this a current diagnosis for this admission?: YesPlan: Improving with potassium supplementation since last evaluation. (2) Hypomagnesemia Is this a current diagnosis for this admission?: Yes (3) Fever Qualifiers: Fever type: unspecified Qualified Code(s): R50.9 - Fever, unspecified Is this a current diagnosis for this admission?: Yes (4) Malignant neoplasm of prostate Is this a current diagnosis for this admission?: Yes (5) Sepsis Qualifiers: Sepsis type: sepsis due to unspecified organism Qualified Code(s): A41.9 - Sepsis, unspecified organism Is this a current diagnosis for this admission?: YesPlan: Follow up on pending blood culture. Remain no growth to date. - Time Time Spent with patient: 25-34 minutes Medications reviewed and adjusted accordingly: Yes - Allow usage of Xtandi for his metastatic prostate cancer treatment. Anticipated discharge: Home with Homehealth Within: Other - Inpatient Certification Medical Necessity: Need For IV Fluids, Need for IV Antibiotics, Risk of Complication if Not Cared For in Hospital - Plan Summary Plan Summary: Patient will continue on all current merdication management. He will provide his own supply of Xtandi and after pharmacist confirmation nursing staff will continue to administer will hospitalized as directed by his medical 9oncologist , Dr Welch, on daily basis.
[2016-11-08] MEDS: ATORVASTATIN CALCIUM 40 MG TABLET PO SCH (10:25)
[2016-11-08] MEDS: CEFEPIME HCL 2 GM in DEXTROSE 5%-WATER 50 ML IV SCH ×2 (10:26→21:41)
[2016-11-08] MEDS: LEVOFLOXACIN 750 MG/D5W RTU 750 MG/150 ML RTUPB IV SCH (11:35)
[2016-11-08] MEDS: NORMAL SALINE 1000 ML 1,000 ML IV PRN ×2 (14:06→23:24)
[2016-11-08] MEDS ORDERED: ENZALUTAMIDE 40 MG PO ONE (14:15)
[2016-11-09] MEDS: ACETAMINOPHEN 325 MG TABLET PO PRN (03:36)
[2016-11-09] MEDS: ONDANSETRON HCL INJ/PF 4 MG/2 ML SDV IV PRN (06:13)
[2016-11-09] MEDS: ENOXAPARIN SODIUM INJ 40 MG/0.4 ML DISP.SYRIN SUBCUT SCH (08:31)
[2016-11-09] MEDS: NORMAL SALINE 1000 ML 1,000 ML IV PRN ×2 (09:47→21:32)
[2016-11-09] MEDS: CEFEPIME HCL 2 GM in DEXTROSE 5%-WATER 50 ML IV SCH ×2 (09:47→21:32)
[2016-11-09] MEDS: ATORVASTATIN CALCIUM 40 MG TABLET PO SCH (09:47)
[2016-11-09] MEDS ORDERED: ENZALUTAMIDE 40 MG PO SCH (10:00)
[2016-11-09] MEDS: LEVOFLOXACIN 750 MG/D5W RTU 750 MG/150 ML RTUPB IV SCH (12:48)
--- NOTE | 2016-11-09 14:59 | PDOC PROGRESS REPORT ---
Subjective Progress Note for:: 11/09/16 Subjective:: No reported fever or chills. No nausea so far today, tolerating oral feeding. No chest pain or difficulty with breathing. Remain on IV Levaquin and Cefepime coverage. Physical Exam Vital Signs: Temp Pulse Resp BP Pulse Ox 98.3 F 55 L 17 136/71 H 99 11/09/16 11:29 11/09/16 11:29 11/09/16 11:29 11/09/16 11:29 11/09/16 11:29 Intake & Output 11/08/16 11/09/16 11/10/16 06:59 06:59 06:59 Intake Total 3270 2816 Output Total 650 1150 Balance 2620 1666 Weight 79.5 kg 79.5 kg General appearance: PRESENT: no acute distress, cooperative Head exam: PRESENT: atraumatic, normocephalic Eye exam: PRESENT: conjunctiva pink, EOMI, PERRLA. ABSENT: scleral icterus Mouth exam: PRESENT: moist, tongue midline Throat exam: ABSENT: post pharyngeal erythema, tonsillar erythema, tonsillar exudate, tonsillogmegaly, other Neck exam: PRESENT: full ROM. ABSENT: carotid bruit, JVD, lymphadenopathy, thyromegaly Respiratory exam: PRESENT: decreased breath sounds. ABSENT: accessory muscle use, chest wall tenderness, clear to auscultation rebecca, crackles, prolonged expiratory phas, rales, retraction, rhonchi, stridor, symmetrical, tachypnea, unlabored, wheezes, other Cardiovascular exam: PRESENT: RRR. ABSENT: diastolic murmur, rubs, systolic murmur Vascular exam: PRESENT: normal capillary refill GI/Abdominal exam: PRESENT: normal bowel sounds, soft. ABSENT: distended, guarding, mass, organolmegaly, rebound, tenderness Extremities exam: PRESENT: full ROM Musculoskeletal exam: PRESENT: ambulatory, deformity - of arthritis at multiple joints, full ROM, normal inspection Neurological exam: PRESENT: alert, awake, oriented to person, oriented to place , oriented to time, oriented to situation, CN II-XII grossly intact. ABSENT: motor sensory deficit Psychiatric exam: PRESENT: appropriate affect, normal mood. ABSENT: homicidal ideation, suicidal ideation Results Laboratory Results: 11/08/16 05:33 11/08/16 05:33 11/05/16 22:50 Stool - Stool - Final 11/05/16 22:50 Stool - Stool Stool Culture - Final NO SALMONELLA, SHIGELLA, CAMPYLOBACTER, OR E.COLI 0157 RECOVERED. NEGATIVE FOR SHIGA TOXINS 1&2. 11/05/16 11/05/16 11/05/16 06:28 06:28 12:56 Creatine Kinase 56 57 Troponin I < 0.012 11/05/16 11/05/16 11/05/16 12:56 18:51 18:51 Creatine Kinase 51 L Troponin I < 0.012 < 0.012 Impressions: Abdomen/Pelvis CT 11/05/16 00:00 IMPRESSION: Small pericarditis. Small colonic diverticulosis. No acute or suspicious CT finding of the abdomen pelvis. Chest CT 11/05/16 00:00 IMPRESSION: Minimal bibasilar opacities and pleural reaction. Trace pericardial effusion. No pulmonary emboli. Minimal progression of thoracic bony metastatic disease. Chest X-Ray 11/08/16 07:00 IMPRESSION: Minimal left basilar densities as noted above. Assessment & Plan - Diagnosis (1) Hypokalemia due to loss of potassium Is this a current diagnosis for this admission?: Yes (2) Hypomagnesemia Is this a current diagnosis for this admission?: Yes (3) Fever Qualifiers: Fever type: unspecified Qualified Code(s): R50.9 - Fever, unspecified Is this a current diagnosis for this admission?: Yes (4) Malignant neoplasm of prostate Is this a current diagnosis for this admission?: Yes (5) Sepsis Qualifiers: Sepsis type: sepsis due to unspecified organism Qualified Code(s): A41.9 - Sepsis, unspecified organism Is this a current diagnosis for this admission?: Yes (6) Pneumonia due to Gram-negative bacteria Is this a current diagnosis for this admission?: YesPlan: Continue IV Levaquin and Cefepime coverage. Blood culture remain no growth x 4 days so far. - Time Anticipated discharge: Home with Homehealth Within: Other - Inpatient Certification Medical Necessity: Need Close Monitoring Due to Risk of Patient Decompensation, Need For IV Fluids, Need for IV Antibiotics, Risk of Complication if Not Cared For in Hospital Post Hospital Care: D/C Research Chemist Documentation - Plan Summary Plan Summary: Continue current medication management. See attending physician orders for details.
[2016-11-10] MEDS: ENOXAPARIN SODIUM INJ 40 MG/0.4 ML DISP.SYRIN SUBCUT SCH (09:57)
[2016-11-10] MEDS: CEFEPIME HCL 2 GM in DEXTROSE 5%-WATER 50 ML IV SCH ×2 (09:57→21:49)
[2016-11-10] MEDS: LOPERAMIDE HCL 2 MG CAPSULE PO PRN ×2 (09:58→17:18)
[2016-11-10] MEDS: ATORVASTATIN CALCIUM 40 MG TABLET PO SCH (09:58)
[2016-11-10] MEDS: LEVOFLOXACIN 750 MG/D5W RTU 750 MG/150 ML RTUPB IV SCH (11:41)
--- NOTE | 2016-11-10 11:45 | PDOC PROGRESS REPORT ---
Subjective Progress Note for:: 11/10/16 Subjective:: pt is feeling weak pt still have loose stool pt c diff neg pt still cough and whezzing nochest pain no sob Physical Exam Vital Signs: Temp Pulse Resp BP Pulse Ox 98.4 F 57 L 20 135/83 H 98 11/10/16 08:28 11/10/16 08:28 11/10/16 08:28 11/10/16 08:28 11/10/16 08:28 Intake & Output 11/09/16 11/10/16 11/11/16 06:59 06:59 06:59 Intake Total 2816 2600 Output Total 1150 600 Balance 1666 2000 Weight 79.5 kg 79.5 kg General appearance: PRESENT: no acute distress Head exam: PRESENT: normocephalic Eye exam: PRESENT: PERRLA Mouth exam: PRESENT: neck supple Respiratory exam: PRESENT: wheezes Cardiovascular exam: PRESENT: RRR, +S1, +S2 GI/Abdominal exam: PRESENT: normal bowel sounds, soft. ABSENT: tenderness Extremities exam: ABSENT: pedal edema Neurological exam: PRESENT: alert, awake, oriented to person, oriented to place Psychiatric exam: PRESENT: normal mood Skin exam: PRESENT: normal color Results Laboratory Results: 11/08/16 05:33 11/08/16 05:33 11/05/16 11/05/16 11/05/16 06:28 06:28 12:56 Creatine Kinase 56 57 Troponin I < 0.012 11/05/16 11/05/16 11/05/16 12:56 18:51 18:51 Creatine Kinase 51 L Troponin I < 0.012 < 0.012 Impressions: Abdomen/Pelvis CT 11/05/16 00:00 IMPRESSION: Small pericarditis. Small colonic diverticulosis. No acute or suspicious CT finding of the abdomen pelvis. Chest CT 11/05/16 00:00 IMPRESSION: Minimal bibasilar opacities and pleural reaction. Trace pericardial effusion. No pulmonary emboli. Minimal progression of thoracic bony metastatic disease. Chest X-Ray 11/08/16 07:00 IMPRESSION: Minimal left basilar densities as noted above. Assessment & Plan - Diagnosis (1) Diarrhea Qualifiers: Diarrhea type: unspecified type Qualified Code(s): R19.7 - Diarrhea , unspecified Is this a current diagnosis for this admission?: YesPlan: add probiotics cont imodium check c diff again (2) Fever Qualifiers: Fever type: unspecified Qualified Code(s): R50.9 - Fever, unspecified Is this a current diagnosis for this admission?: Yes (3) Hypokalemia due to loss of potassium Is this a current diagnosis for this admission?: YesPlan: all resolved (4) Malignant neoplasm of prostate Is this a current diagnosis for this admission?: YesPlan: stable (5) Pneumonia due to Gram-negative bacteria Is this a current diagnosis for this admission?: Yes (6) Sepsis Qualifiers: Sepsis type: sepsis due to unspecified organism Qualified Code(s): A41.9 - Sepsis, unspecified organism Is this a current diagnosis for this admission?: YesPlan: from pnemonia - Time Time Spent with patient: 15-24 minutes Medications reviewed and adjusted accordingly: Yes Anticipated discharge: Home - Inpatient Certification Medical Necessity: Need for IV Antibiotics - Plan Summary Plan Summary: order cxr stool for c diff add bacid add duoneb rx
[2016-11-10] MEDS: IPRATROPIUM/ALBUTEROL 0.5-2.5 MG/3 ML AMPUL NEB SCH ×2 (14:42→19:42)
[2016-11-10] MEDS: NORMAL SALINE 1000 ML 1,000 ML IV PRN ×2 (17:18→21:49)
[2016-11-10] MEDS: LACTOBACILLUS ACIDOPHILUS 250 MG TAB PO SCH (17:18)
[2016-11-11 07:33] LABS: HEMATOCRIT 35.9 % (37.9-51.0); HEMOGLOBIN 12.2 g/dL (13.5-17.0); HGB HCT DIFFERENCE 0.7; MEAN CORPUSCULAR HEMOGLOBIN 29.3 pg (27.0-33.4); MEAN CORPUSCULAR HGB CONC 33.9 g/dL (32.0-36.0); MEAN CORPUSCULAR VOLUME 86 fl (80-97); RED BLOOD COUNT 4.16 10^6/uL (4.35-5.55); RED CELL DISTRIBUTION WIDTH 14.4 % (11.5-14.0); WHITE BLOOD COUNT 6.4 10^3/uL (4.0-10.5)
[2016-11-11 07:55] LABS: ANION GAP 12 (5-19); BLOOD UREA NITROGEN 4 mg/dL (7-20); CALCIUM 8.7 mg/dL (8.4-10.2); CARBON DIOXIDE 21 mmol/L (22-30); CHLORIDE 110 mmol/L (98-107); CREATININE RESULT 0.62 mg/dL (0.52-1.25); GLUCOSE 82 mg/dL (75-110); POTASSIUM 3.5 mmol/L (3.6-5.0); SODIUM 142.5 mmol/L (137-145)
[2016-11-11] MEDS: IPRATROPIUM/ALBUTEROL 0.5-2.5 MG/3 ML AMPUL NEB SCH ×3 (08:00→19:41)
[2016-11-11] MEDS: ENOXAPARIN SODIUM INJ 40 MG/0.4 ML DISP.SYRIN SUBCUT SCH (08:36)
[2016-11-11] MEDS: CEFEPIME HCL 2 GM in DEXTROSE 5%-WATER 50 ML IV SCH ×2 (10:40→22:03)
[2016-11-11] MEDS: LACTOBACILLUS ACIDOPHILUS 250 MG TAB PO SCH ×2 (10:40→17:00)
[2016-11-11] MEDS: ATORVASTATIN CALCIUM 40 MG TABLET PO SCH (10:40)
--- NOTE | 2016-11-11 11:52 | PDOC PROGRESS REPORT ---
Subjective Progress Note for:: 11/11/16 Subjective:: Patient is doing much better this patient's denied any chest pain no shortness of the breath patient's diarrhea is also improving patient's otherwise no fever and no other events happened Physical Exam Vital Signs: Temp Pulse Resp BP Pulse Ox 98.0 F 55 L 16 124/78 95 11/11/16 05:20 11/11/16 08:00 11/11/16 08:00 11/11/16 05:20 11/11/16 08:00 Intake & Output 11/10/16 11/11/16 11/12/16 06:59 06:59 06:59 Intake Total 2600 2608 Output Total 600 2100 Balance 1999 508 Weight 79.5 kg 74.1 kg General appearance: PRESENT: no acute distress, well-developed, well-nourished Head exam: PRESENT: atraumatic, normocephalic Eye exam: PRESENT: conjunctiva pink, EOMI, PERRLA. ABSENT: scleral icterus Ear exam: PRESENT: normal external ear exam Mouth exam: PRESENT: moist, tongue midline Throat exam: ABSENT: post pharyngeal erythema, tonsillar erythema, tonsillar exudate, tonsillogmegaly, other Neck exam: ABSENT: carotid bruit, full ROM, JVD, lymphadenopathy, meningismus, tenderness, thyromegaly, tracheal deviation, tracheostomy, other Respiratory exam: PRESENT: clear to auscultation rebecca Cardiovascular exam: PRESENT: +S1, +S2 GI/Abdominal exam: PRESENT: normal bowel sounds, soft. ABSENT: tenderness Extremities exam: ABSENT: pedal edema Neurological exam: PRESENT: alert, awake, oriented to person, oriented to place , oriented to time, oriented to situation Psychiatric exam: PRESENT: normal mood Skin exam: PRESENT: normal color Results Laboratory Results: 11/11/16 06:30 11/11/16 06:30 11/11/16 11/11/16 06:30 06:30 WBC 6.4 RBC 4.16 L Hgb 12.2 L Hct 35.9 L MCV 86 MCH 29.3 MCHC 33.9 RDW 14.4 H Plt Count 224 Sodium 142.5 Potassium 3.5 L Chloride 110 H Carbon Dioxide 21 L Anion Gap 12 BUN 4 L Creatinine 0.62 Est GFR ( Amer) > 60 Est GFR (Non-Af Amer) > 60 Glucose 82 Calcium 8.7 11/05/16 11/05/16 11/05/16 06:28 06:28 12:56 Creatine Kinase 56 57 Troponin I < 0.012 11/05/16 11/05/16 11/05/16 12:56 18:51 18:51 Creatine Kinase 51 L Troponin I < 0.012 < 0.012 Impressions: Abdomen/Pelvis CT 11/05/16 00:00 IMPRESSION: Small pericarditis. Small colonic diverticulosis. No acute or suspicious CT finding of the abdomen pelvis. Chest CT 11/05/16 00:00 IMPRESSION: Minimal bibasilar opacities and pleural reaction. Trace pericardial effusion. No pulmonary emboli. Minimal progression of thoracic bony metastatic disease. Chest X-Ray 11/10/16 00:00 IMPRESSION: IMPROVED AERATION LEFT LUNG BASE. OTHERWISE STABLE APPEARANCE OF THE CHEST. Assessment & Plan - Diagnosis (1) Diarrhea Qualifiers: Diarrhea type: unspecified type Qualified Code(s): R19.7 - Diarrhea , unspecified Is this a current diagnosis for this admission?: YesPlan: ALT improving continues the probiotics and continues the Imodium (2) Fever Qualifiers: Fever type: unspecified Qualified Code(s): R50.9 - Fever, unspecified Is this a current diagnosis for this admission?: YesPlan: ALT resolved (3) Hypokalemia due to loss of potassium Is this a current diagnosis for this admission?: YesPlan: Replace the potassium today (4) Malignant neoplasm of prostate Is this a current diagnosis for this admission?: YesPlan: stable (5) Pneumonia due to Gram-negative bacteria Is this a current diagnosis for this admission?: YesPlan: Continues IV antibiotic (6) Sepsis Qualifiers: Sepsis type: sepsis due to unspecified organism Qualified Code(s): A41.9 - Sepsis, unspecified organism Is this a current diagnosis for this admission?: YesPlan: from pnemonia - Time Time Spent with patient: 15-24 minutes Medications reviewed and adjusted accordingly: Yes Anticipated discharge: Home - Inpatient Certification Medical Necessity: Need for IV Antibiotics - Plan Summary Plan Summary: Continues the current medications are placed the potassiums are. The Chem-7 in the morning and patient is getting much improvement this point
[2016-11-11] MEDS: LEVOFLOXACIN 750 MG/D5W RTU 750 MG/150 ML RTUPB IV SCH (13:43)
[2016-11-11] MEDS ORDERED: POTASSIUM CHLORIDE 10 MEQ TABLET.SA PO ONE (15:00)
[2016-11-11] MEDS: NORMAL SALINE 1000 ML 1,000 ML IV PRN (19:58)
[2016-11-12] MEDS: NORMAL SALINE 1000 ML 1,000 ML IV PRN ×2 (06:35→18:54)
[2016-11-12 06:59] LABS: HEMOGLOBIN 12.1 g/dL (13.5-17.0); HGB HCT DIFFERENCE 1.3; MEAN CORPUSCULAR HEMOGLOBIN 29.8 pg (27.0-33.4); MEAN CORPUSCULAR HGB CONC 34.6 g/dL (32.0-36.0); MEAN CORPUSCULAR VOLUME 86 fl (80-97); RED BLOOD COUNT 4.07 10^6/uL (4.35-5.55); RED CELL DISTRIBUTION WIDTH 14.5 % (11.5-14.0); WHITE BLOOD COUNT 7.2 10^3/uL (4.0-10.5)
[2016-11-12 07:17] LABS: ANION GAP 11 (5-19); BLOOD UREA NITROGEN 3 mg/dL (7-20); CARBON DIOXIDE 21 mmol/L (22-30); CHLORIDE 111 mmol/L (98-107); CREATININE RESULT 0.59 mg/dL (0.52-1.25); GLUCOSE 88 mg/dL (75-110); POTASSIUM 3.6 mmol/L (3.6-5.0); SODIUM 143.1 mmol/L (137-145)
[2016-11-12] MEDS: IPRATROPIUM/ALBUTEROL 0.5-2.5 MG/3 ML AMPUL NEB SCH ×3 (09:05→20:10)
[2016-11-12] MEDS: ENOXAPARIN SODIUM INJ 40 MG/0.4 ML DISP.SYRIN SUBCUT SCH (09:46)
[2016-11-12] MEDS: CEFEPIME HCL 2 GM in DEXTROSE 5%-WATER 50 ML IV SCH ×2 (09:48→21:41)
[2016-11-12] MEDS: LACTOBACILLUS ACIDOPHILUS 250 MG TAB PO SCH ×2 (09:49→17:04)
[2016-11-12] MEDS: ATORVASTATIN CALCIUM 40 MG TABLET PO SCH (09:49)
--- NOTE | 2016-11-12 10:26 | PDOC PROGRESS REPORT ---
Subjective Progress Note for:: 11/12/16 Subjective:: Patient is doing much better no abdominal pain no nausea no vomiting no diarrhea since lung is also much better and denied any cough any congestion no chest pain Physical Exam Vital Signs: Temp Pulse Resp BP Pulse Ox 99.2 F 63 16 141/64 H 98 11/12/16 03:39 11/12/16 08:58 11/12/16 08:58 11/12/16 03:39 11/12/16 08:58 Intake & Output 11/11/16 11/12/16 11/13/16 06:59 06:59 06:59 Intake Total 2608 8533 Output Total 2100 1300 Balance 508 7233 Weight 74.1 kg 73.7 kg General appearance: PRESENT: no acute distress, well-developed, well-nourished Eye exam: PRESENT: conjunctiva pink, EOMI, PERRLA. ABSENT: scleral icterus Mouth exam: PRESENT: moist, tongue midline Neck exam: ABSENT: carotid bruit, full ROM, JVD, lymphadenopathy, meningismus, tenderness, thyromegaly, tracheal deviation, tracheostomy, other Respiratory exam: ABSENT: accessory muscle use, chest wall tenderness, clear to auscultation rebecca, crackles, decreased breath sounds, prolonged expiratory phas, rales, retraction, rhonchi, stridor, symmetrical, tachypnea, unlabored, wheezes , other Cardiovascular exam: ABSENT: bradycardia, clicks, diastolic murmur, gallop, irregular rhythm, RRR, rubs, +S1, +S2, systolic murmur, tachycardia, other Pulses: ABSENT: normal carotid pulses, normal radial pulses, normal femoral pulses, normal dorsalis pedis pul, +1 pedal pulses bilateral, +2 pedal pulses bilateral, other GI/Abdominal exam: ABSENT: ascites, diminished bowel sounds, distended, firm, guarding, hernia, hyperactive bowel sounds, hypoactive bowel sounds, mass, Torres's sign, normal bowel sounds, organolmegaly, rebound, rigid, soft, tenderness, other Rectal exam: ABSENT: deferred, black stool, bloody stool, decreased rectal tone , fecal impaction, heme (-) stool, heme (+) stool, hemorrhoids, laceration, mass , normal inspection, normal prostate, normal rectal tone, prostate enlargement, prostate tenderness, tenderness, other Extremities exam: ABSENT: full ROM, left AKA, right AKA, left BKA, right BKA, calf tenderness, joint swelling, pedal edema, tenderness, other Neurological exam: ABSENT: alert, altered, awake, oriented to person, oriented to place, oriented to time, oriented to situation, reflexes normal, abnormal gait, ataxia, CN II-XII grossly intact, motor sensory deficit, normal gait, aphasic, other Skin exam: PRESENT: dry Results Laboratory Results: 11/12/16 06:05 11/12/16 06:05 11/12/16 11/12/16 06:05 06:05 WBC 7.2 RBC 4.07 L Hgb 12.1 L Hct 35.0 L MCV 86 MCH 29.8 MCHC 34.6 RDW 14.5 H Plt Count 253 Sodium 143.1 Potassium 3.6 Chloride 111 H Carbon Dioxide 21 L Anion Gap 11 BUN 3 L Creatinine 0.59 Est GFR ( Amer) > 60 Est GFR (Non-Af Amer) > 60 Glucose 88 Calcium 9.0 11/05/16 11/05/16 11/05/16 06:28 06:28 12:56 Creatine Kinase 56 57 Troponin I < 0.012 11/05/16 11/05/16 11/05/16 12:56 18:51 18:51 Creatine Kinase 51 L Troponin I < 0.012 < 0.012 Impressions: Abdomen/Pelvis CT 11/05/16 00:00 IMPRESSION: Small pericarditis. Small colonic diverticulosis. No acute or suspicious CT finding of the abdomen pelvis. Chest CT 11/05/16 00:00 IMPRESSION: Minimal bibasilar opacities and pleural reaction. Trace pericardial effusion. No pulmonary emboli. Minimal progression of thoracic bony metastatic disease. Chest X-Ray 11/10/16 00:00 IMPRESSION: IMPROVED AERATION LEFT LUNG BASE. OTHERWISE STABLE APPEARANCE OF THE CHEST. Assessment & Plan - Diagnosis (1) Diarrhea Qualifiers: Diarrhea type: unspecified type Qualified Code(s): R19.7 - Diarrhea , unspecified Is this a current diagnosis for this admission?: YesPlan: resolved (2) Fever Qualifiers: Fever type: unspecified Qualified Code(s): R50.9 - Fever, unspecified Is this a current diagnosis for this admission?: YesPlan: ALT resolved (3) Hypokalemia due to loss of potassium Is this a current diagnosis for this admission?: YesPlan: Replace the potassium today (4) Malignant neoplasm of prostate Is this a current diagnosis for this admission?: YesPlan: stable (5) Pneumonia due to Gram-negative bacteria Is this a current diagnosis for this admission?: YesPlan: Continues IV antibiotic (6) Sepsis Qualifiers: Sepsis type: sepsis due to unspecified organism Qualified Code(s): A41.9 - Sepsis, unspecified organism Is this a current diagnosis for this admission?: YesPlan: from pnemonia - Time Time Spent with patient: 15-24 minutes Medications reviewed and adjusted accordingly: Yes Anticipated discharge: Home Within: within 24 hours - Inpatient Certification Medical Necessity: Need for IV Antibiotics - Plan Summary Plan Summary: Continuous IV antibiotic and probiotics and patient is doing much better he switched to by mouth medication
[2016-11-12] MEDS: LEVOFLOXACIN 750 MG/D5W RTU 750 MG/150 ML RTUPB IV SCH (11:15)
[2016-11-12] MEDS: ONDANSETRON HCL INJ/PF 4 MG/2 ML SDV IV PRN (21:55)
[2016-11-12] MEDS: LOPERAMIDE HCL 2 MG CAPSULE PO PRN (21:55)
[2016-11-13 04:54] LABS: HEMATOCRIT 33.1 % (37.9-51.0); HEMOGLOBIN 11.5 g/dL (13.5-17.0); HGB HCT DIFFERENCE 1.4; MEAN CORPUSCULAR HEMOGLOBIN 29.7 pg (27.0-33.4); MEAN CORPUSCULAR HGB CONC 34.8 g/dL (32.0-36.0); MEAN CORPUSCULAR VOLUME 85 fl (80-97); RED BLOOD COUNT 3.89 10^6/uL (4.35-5.55); RED CELL DISTRIBUTION WIDTH 14.6 % (11.5-14.0); WHITE BLOOD COUNT 7.3 10^3/uL (4.0-10.5)
[2016-11-13 05:16] LABS: ANION GAP 10 (5-19); BLOOD UREA NITROGEN 2 mg/dL (7-20); CALCIUM 8.7 mg/dL (8.4-10.2); CARBON DIOXIDE 24 mmol/L (22-30); CHLORIDE 109 mmol/L (98-107); GLUCOSE 85 mg/dL (75-110); POTASSIUM 3.4 mmol/L (3.6-5.0); SODIUM 143.3 mmol/L (137-145)
--- NOTE | 2016-11-13 08:23 | PDOC PROGRESS REPORT ---
Subjective Progress Note for:: 11/13/16 Subjective:: No reported fever or chills. No nausea so far today, tolerating oral feeding. No chest pain or difficulty with breathing. Remain on IV Levaquin and Cefepime coverage. Interval input by Dr Callahan appreciated. Physical Exam Vital Signs: Temp Pulse Resp BP Pulse Ox 98.2 F 52 L 18 131/73 H 97 11/13/16 07:24 11/13/16 07:24 11/13/16 07:24 11/13/16 07:24 11/13/16 07:24 Intake & Output 11/12/16 11/13/16 11/14/16 06:59 06:59 06:59 Intake Total 8533 4283 Output Total 1300 3025 Balance 7233 1258 Weight 73.7 kg 74.8 kg General appearance: PRESENT: no acute distress, well-developed, well-nourished Head exam: PRESENT: atraumatic, normocephalic Eye exam: PRESENT: conjunctiva pink, EOMI, PERRLA. ABSENT: scleral icterus Ear exam: PRESENT: normal external ear exam Mouth exam: PRESENT: moist, tongue midline Teeth exam: ABSENT: dental caries, dental tenderness, edentulous, poor dentation , other Throat exam: ABSENT: post pharyngeal erythema, tonsillar erythema, tonsillar exudate, tonsillogmegaly, other Neck exam: PRESENT: full ROM. ABSENT: carotid bruit, JVD, lymphadenopathy, thyromegaly Respiratory exam: ABSENT: accessory muscle use, chest wall tenderness, clear to auscultation rebecca, crackles, decreased breath sounds, prolonged expiratory phas, rales, retraction, rhonchi, stridor, symmetrical, tachypnea, unlabored, wheezes , other Cardiovascular exam: PRESENT: RRR. ABSENT: diastolic murmur, rubs, systolic murmur Pulses: PRESENT: normal dorsalis pedis pul, +2 pedal pulses bilateral Vascular exam: PRESENT: normal capillary refill GI/Abdominal exam: PRESENT: normal bowel sounds, soft. ABSENT: distended, guarding, mass, organolmegaly, rebound, tenderness Extremities exam: PRESENT: full ROM Musculoskeletal exam: PRESENT: ambulatory, deformity - multiple joints with arthritis deformities, full ROM Neurological exam: PRESENT: alert, awake, oriented to person, oriented to place , oriented to time, oriented to situation, CN II-XII grossly intact. ABSENT: motor sensory deficit Psychiatric exam: PRESENT: appropriate affect, normal mood. ABSENT: homicidal ideation, suicidal ideation Skin exam: PRESENT: dry, intact, warm. ABSENT: cyanosis, rash Results Laboratory Results: 11/13/16 04:14 11/13/16 04:14 11/13/16 11/13/16 04:14 04:14 WBC 7.3 RBC 3.89 L Hgb 11.5 L Hct 33.1 L MCV 85 MCH 29.7 MCHC 34.8 RDW 14.6 H Plt Count 243 Sodium 143.3 Potassium 3.4 L Chloride 109 H Carbon Dioxide 24 Anion Gap 10 BUN 2 L Creatinine 0.60 Est GFR ( Amer) > 60 Est GFR (Non-Af Amer) > 60 Glucose 85 Calcium 8.7 11/05/16 11/05/16 11/05/16 06:28 06:28 12:56 Creatine Kinase 56 57 Troponin I < 0.012 11/05/16 11/05/16 11/05/16 12:56 18:51 18:51 Creatine Kinase 51 L Troponin I < 0.012 < 0.012 Impressions: Abdomen/Pelvis CT 11/05/16 00:00 IMPRESSION: Small pericarditis. Small colonic diverticulosis. No acute or suspicious CT finding of the abdomen pelvis. Chest CT 11/05/16 00:00 IMPRESSION: Minimal bibasilar opacities and pleural reaction. Trace pericardial effusion. No pulmonary emboli. Minimal progression of thoracic bony metastatic disease. Chest X-Ray 11/10/16 00:00 IMPRESSION: IMPROVED AERATION LEFT LUNG BASE. OTHERWISE STABLE APPEARANCE OF THE CHEST. Assessment & Plan - Diagnosis (1) Hypokalemia due to loss of potassium Is this a current diagnosis for this admission?: Yes (2) Hypomagnesemia Is this a current diagnosis for this admission?: Yes (3) Fever Qualifiers: Fever type: unspecified Qualified Code(s): R50.9 - Fever, unspecified Is this a current diagnosis for this admission?: Yes (4) Malignant neoplasm of prostate Is this a current diagnosis for this admission?: Yes (5) Sepsis Qualifiers: Sepsis type: sepsis due to unspecified organism Qualified Code(s): A41.9 - Sepsis, unspecified organism Is this a current diagnosis for this admission?: Yes (6) Pneumonia due to Gram-negative bacteria Is this a current diagnosis for this admission?: YesPlan: Continue IV Levaquin and Cefepime coverage day # 6. Blood culture has been no growth x 5 days. - Time Time Spent with patient: 25-34 minutes Medications reviewed and adjusted accordingly: Yes Anticipated discharge: Home with Homehealth Within: Other - Inpatient Certification Medical Necessity: Need For IV Fluids, Need for IV Antibiotics, Risk of Complication if Not Cared For in Hospital - Plan Summary Plan Summary: Continue IV antibiotic coverage for total 7 day and possible discharge home thereafter.
[2016-11-13] MEDS: ENOXAPARIN SODIUM INJ 40 MG/0.4 ML DISP.SYRIN SUBCUT SCH (08:54)
[2016-11-13] MEDS: ATORVASTATIN CALCIUM 40 MG TABLET PO SCH (09:00)
[2016-11-13] MEDS: LACTOBACILLUS ACIDOPHILUS 250 MG TAB PO SCH ×2 (09:00→17:45)
[2016-11-13] MEDS: CEFEPIME HCL 2 GM in DEXTROSE 5%-WATER 50 ML IV SCH ×2 (09:00→21:25)
[2016-11-13] MEDS: IPRATROPIUM/ALBUTEROL 0.5-2.5 MG/3 ML AMPUL NEB SCH ×3 (09:21→19:49)
[2016-11-13] MEDS: LEVOFLOXACIN 750 MG/D5W RTU 750 MG/150 ML RTUPB IV SCH (11:35)
[2016-11-13] MEDS: NORMAL SALINE 1000 ML 1,000 ML IV PRN (17:45)
[2016-11-14] MEDS: ENOXAPARIN SODIUM INJ 40 MG/0.4 ML DISP.SYRIN SUBCUT SCH (07:56)
[2016-11-14] MEDS: IPRATROPIUM/ALBUTEROL 0.5-2.5 MG/3 ML AMPUL NEB SCH ×3 (09:03→19:33)
[2016-11-14] MEDS: POTASSIUM CHLORIDE 10 MEQ TABLET.SA PO SCH ×2 (09:30→14:44)
[2016-11-14] MEDS: ATORVASTATIN CALCIUM 40 MG TABLET PO SCH (09:30)
[2016-11-14] MEDS: LACTOBACILLUS ACIDOPHILUS 250 MG TAB PO SCH ×2 (09:30→18:07)
[2016-11-14] MEDS: NORMAL SALINE 1000 ML 1,000 ML IV PRN (14:44)
--- NOTE | 2016-11-14 17:33 | PDOC PROGRESS REPORT ---
Subjective Progress Note for:: 11/14/16 Subjective:: No reported fever or chills. No nausea so far today, tolerating oral feeding. No chest pain or difficulty with breathing. Patient is currently off IV Levaquin and Cefepime coverage. His laboratory evaluation did revealed hypokalemia and hypomagnesemia. Physical Exam Vital Signs: Temp Pulse Resp BP Pulse Ox 98.2 F 61 14 134/85 H 98 11/14/16 12:38 11/14/16 14:07 11/14/16 14:07 11/14/16 12:38 11/14/16 12:38 Intake & Output 11/13/16 11/14/16 11/15/16 06:59 06:59 06:59 Intake Total 4283 2441 Output Total 3025 2850 Balance 1258 -409 Weight 74.8 kg 74.2 kg General appearance: PRESENT: no acute distress, well-developed, well-nourished Head exam: PRESENT: atraumatic, normocephalic Eye exam: PRESENT: conjunctiva pink, EOMI, PERRLA. ABSENT: scleral icterus Mouth exam: PRESENT: moist, tongue midline Respiratory exam: ABSENT: accessory muscle use, chest wall tenderness, clear to auscultation rebecca, crackles, decreased breath sounds, prolonged expiratory phas, rales, retraction, rhonchi, stridor, symmetrical, tachypnea, unlabored, wheezes , other Cardiovascular exam: PRESENT: RRR. ABSENT: diastolic murmur, rubs, systolic murmur GI/Abdominal exam: PRESENT: normal bowel sounds, soft. ABSENT: distended, guarding, mass, organolmegaly, rebound, tenderness Extremities exam: PRESENT: full ROM Musculoskeletal exam: PRESENT: ambulatory, deformity - due to multiple joints arthritis deformities, full ROM, normal inspection Neurological exam: PRESENT: alert, awake, oriented to person, oriented to place , oriented to time, oriented to situation, CN II-XII grossly intact. ABSENT: motor sensory deficit Psychiatric exam: PRESENT: appropriate affect, normal mood. ABSENT: homicidal ideation, suicidal ideation Skin exam: PRESENT: dry, intact, warm. ABSENT: cyanosis, rash Results Laboratory Results: 11/13/16 04:14 11/13/16 04:14 11/14/16 11:01 Magnesium 1.4 L 11/05/16 11/05/1611/05/16 06:28 06:28 12:56 Creatine Kinase 56 57 Troponin I < 0.012 11/05/16 11/05/16 11/05/16 12:56 18:51 18:51 Creatine Kinase 51 L Troponin I < 0.012 < 0.012 Impressions: Abdomen/Pelvis CT 11/05/16 00:00 IMPRESSION: Small pericarditis. Small colonic diverticulosis. No acute or suspicious CT finding of the abdomen pelvis. Chest CT 11/05/16 00:00 IMPRESSION: Minimal bibasilar opacities and pleural reaction. Trace pericardial effusion. No pulmonary emboli. Minimal progression of thoracic bony metastatic disease. Chest X-Ray 11/10/16 00:00 IMPRESSION: IMPROVED AERATION LEFT LUNG BASE. OTHERWISE STABLE APPEARANCE OF THE CHEST. Assessment & Plan - Diagnosis (1) Hypokalemia due to loss of potassium Is this a current diagnosis for this admission?: YesPlan: Patient will receive potassium supplementation 40 mEq p.o x 2 doses. I will repeat his BMP in AM. (2) Hypomagnesemia Is this a current diagnosis for this admission?: YesPlan: Patient will receive 2 gram of magnesium sulfate replacement therapy. We will repeat serum Magnesium level in am. (3) Fever Qualifiers: Fever type: unspecified Qualified Code(s): R50.9 - Fever, unspecified Is this a current diagnosis for this admission?: Yes (4) Malignant neoplasm of prostate Is this a current diagnosis for this admission?: Yes (5) Sepsis Qualifiers: Sepsis type: sepsis due to unspecified organism Qualified Code(s): A41.9 - Sepsis, unspecified organism Is this a current diagnosis for this admission?: Yes (6) Pneumonia due to Gram-negative bacteria Is this a current diagnosis for this admission?: Yes - Time Anticipated discharge: Home with Homehealth Within: within 24 hours - Inpatient Certification Based on my medical assessment, after consideration of the patient's comorbidities, presenting symptoms, or acuity I expect that the services needed warrant INPATIENT care.: Yes I certify that my determination is in accordance with my understanding of Medicare's requirements for reasonable and necessary INPATIENT services [42 CFR 412.3e].: Yes Medical Necessity: Need Close Monitoring Due to Risk of Patient Decompensation, Need For IV Fluids, Risk of Complication if Not Cared For in Hospital Post Hospital Care: D/C Commercial Or Institutional Cleaner Documentation - Plan Summary Plan Summary: If patient continue to be afebrile and clinically stable, tentative discharge plan for tomorrow morning was discussed with him and he is in agreement. Continue outlined management plan.
[2016-11-14] MEDS: MAGNESIUM SULFATE/D5W 100 ML IV SCH ×2 (18:07→18:53)
[2016-11-15 07:33] LABS: ABSOLUTE EOSINOPHILS # (AUTO) 0.2 10^3/uL (0.0-0.6); ABSOLUTE LYMPHOCYTES (AUTO) 1.6 10^3/uL (0.5-4.7); ABSOLUTE MONOCYTES (AUTO) 0.9 10^3/uL (0.1-1.4); ABSOLUTE NEUT (AUTO) 4.3 10^3/uL (1.7-8.2); BASOPHILS % (AUTO) 0.2 % (0-2); EOSINOPHILS % (AUTO) 3.1 % (0-6); HEMATOCRIT 33.9 % (37.9-51.0); HEMOGLOBIN 11.9 g/dL (13.5-17.0); HGB HCT DIFFERENCE 1.8; LYMPHOCYTES % (AUTO) 23.1 % (13-45); MEAN CORPUSCULAR HEMOGLOBIN 29.8 pg (27.0-33.4); MEAN CORPUSCULAR HGB CONC 34.9 g/dL (32.0-36.0); MEAN CORPUSCULAR VOLUME 85 fl (80-97); MONOCYTES % (AUTO) 12.6 % (3-13); RED BLOOD COUNT 3.98 10^6/uL (4.35-5.55); RED CELL DISTRIBUTION WIDTH 14.5 % (11.5-14.0); WHITE BLOOD COUNT 7.1 10^3/uL (4.0-10.5)
[2016-11-15] MEDS: IPRATROPIUM/ALBUTEROL 0.5-2.5 MG/3 ML AMPUL NEB SCH (07:48)
--- NOTE | 2016-11-15 07:53 | PDOC DISCHARGE SUMMARY ---
General - Admit/Disc Date/PCP Admission Date/Primary Care Provider: 11/05/16 02:57 KENZIE DALTON Discharge Date: 11/15/16 - Discharge Diagnosis (1) Hypokalemia due to loss of potassium Is this a current diagnosis for this admission?: Yes (2) Hypomagnesemia Is this a current diagnosis for this admission?: Yes (3) Fever Is this a current diagnosis for this admission?: Yes (4) Malignant neoplasm of prostate Is this a current diagnosis for this admission?: Yes (5) Sepsis Is this a current diagnosis for this admission?: Yes (6) Pneumonia due to Gram-negative bacteria Is this a current diagnosis for this admission?: Yes - Additional Information Resuscitation Status: Full Code Discharge Diet: As Tolerated Discharge Activity: Activity As Tolerated Home Medications: Enzalutamide [Xtandi] 80 mg PO DAILY 11/05/16 Prednisone 5 mg PO BID 11/05/16 Rosuvastatin Calcium 20 mg PO DAILY 11/05/16 History of Present Illness History of Present Illness: MARIAA ALCANTAR JR is a 66 year old male presented with high fever, nonproductive cough, and diarrhea. His initial evaluation with chest CT scan revealed basilar pleural reactive process with airspace disease opacities. He was initially treated as case of possible abdominal infectious process but due to persistent recurrent fever his management was directed towards his abnormal chest findings as case of pneumonia. His blood culture was reported no growth x 5 days. Please see initial evaluation documentation by Dr Vance history and physical. Hospital Course Hospital Course: Patient did respond to change on antibiotic coverage for probable gram negative pneumonia. There was resolution of his fever, nonproductive cough and diarrhea. He had 7 days course of IV Levaquin and Cefepime therapy. He has remain afebrile for last 48 hours. He denied any difficulty with breathing or chest pain. He is agreeable to be discharged home today and follow up with me on 11/21 at 10am and he will follow up with Dr. Welch, his medical oncologist, as instructed upon discharge for management of his metastatic prostate cancer. Physical Exam Vital Signs: Temp Pulse Resp BP Pulse Ox 98.7 F 59 L 16 137/73 H 100 11/15/16 03:43 11/15/16 03:43 11/15/16 03:43 11/15/16 03:43 11/15/16 03:43 Intake & Output 11/14/16 11/15/16 11/16/16 06:59 06:59 06:59 Intake Total 2441 1917 Output Total 6091 2995 Balance -409 -88 Weight 74.2 kg 74.9 kg General appearance: PRESENT: no acute distress, well-developed, well-nourished Head exam: PRESENT: atraumatic, normocephalic Eye exam: PRESENT: conjunctiva pink, EOMI, PERRLA. ABSENT: scleral icterus Ear exam: PRESENT: normal external ear exam Mouth exam: PRESENT: moist, tongue midline Neck exam: PRESENT: full ROM. ABSENT: carotid bruit, JVD, lymphadenopathy, thyromegaly Respiratory exam: ABSENT: accessory muscle use, chest wall tenderness, clear to auscultation rebecca, crackles, decreased breath sounds, prolonged expiratory phas, rales, retraction, rhonchi, stridor, symmetrical, tachypnea, unlabored, wheezes , other Cardiovascular exam: PRESENT: RRR. ABSENT: diastolic murmur, rubs, systolic murmur Pulses: PRESENT: normal dorsalis pedis pul, +2 pedal pulses bilateral Vascular exam: PRESENT: normal capillary refill GI/Abdominal exam: PRESENT: normal bowel sounds, soft. ABSENT: distended, guarding, mass, organolmegaly, rebound, tenderness Extremities exam: PRESENT: full ROM Musculoskeletal exam: PRESENT: ambulatory, deformity - due to multiple jpoints arthritis, full ROM, normal inspection Neurological exam: PRESENT: alert, awake, oriented to person, oriented to place , oriented to time, oriented to situation, CN II-XII grossly intact. ABSENT: motor sensory deficit Psychiatric exam: PRESENT: appropriate affect, normal mood. ABSENT: homicidal ideation, suicidal ideation Skin exam: PRESENT: dry, intact, warm. ABSENT: cyanosis, rash Results Laboratory Results: 11/14/16 11:01 Magnesium 1.4 L 11/05/16 11/05/16 11/05/16 06:28 06:28 12:56 Creatine Kinase 56 57 Troponin I < 0.012 11/05/16 11/05/16 11/05/16 12:56 18:51 18:51 Creatine Kinase 51 L Troponin I < 0.012 < 0.012 Impressions: Abdomen/Pelvis CT 11/05/16 00:00 IMPRESSION: Small pericarditis. Small colonic diverticulosis. No acute or suspicious CT finding of the abdomen pelvis. Chest CT 11/05/16 00:00 IMPRESSION: Minimal bibasilar opacities and pleural reaction. Trace pericardial effusion. No pulmonary emboli. Minimal progression of thoracic bony metastatic disease. Chest X-Ray 11/10/16 00:00 IMPRESSION: IMPROVED AERATION LEFT LUNG BASE. OTHERWISE STABLE APPEARANCE OF THE CHEST. Qualifiers PATEINT BEING DISCHARGED WITH ANY OF THE FOLLOWING DIAGNOSIS?: No Plan Discharge Plan: Patient will be discharged home today with follow up appointment with Dr Welch as instructed and with me on 11/21/16 at 10AM. Time Spent: Less than 30 Minutes
[2016-11-15 07:54] LABS: ANION GAP 10 (5-19); BLOOD UREA NITROGEN 2 mg/dL (7-20); CALCIUM 9.2 mg/dL (8.4-10.2); CARBON DIOXIDE 23 mmol/L (22-30); CHLORIDE 110 mmol/L (98-107); CREATININE RESULT 0.55 mg/dL (0.52-1.25); GLUCOSE 85 mg/dL (75-110); MAGNESIUM 1.7 mg/dL (1.6-2.3); POTASSIUM 3.5 mmol/L (3.6-5.0)
[2016-11-15] MEDS: ENOXAPARIN SODIUM INJ 40 MG/0.4 ML DISP.SYRIN SUBCUT SCH (09:48)
[2016-11-15] MEDS: LACTOBACILLUS ACIDOPHILUS 250 MG TAB PO SCH (09:50)
[2016-11-15] MEDS: ATORVASTATIN CALCIUM 40 MG TABLET PO SCH (09:50)
[2016-11-15] MEDS ORDERED: ACETAMINOPHEN 325 MG TABLET PO PRN (11:05)
[2016-11-15 11:56] VITALS: BP 137/66
== END 2016-11-15 11:54 | disposition home or self-care (01) | DRG 871 ==
LOC: ER 22:27 → UNDOADMIN 11-05 02:57 → 5 11-05 02:57 → EH 11-05 02:57 → 5 11-05 05:16 → UNDOADMIN 11-05 05:46 → 5 11-05 16:00 → UNDOADMIN 11-05 16:00
PROVIDERS: ADMIT Internal Medicine Geriatric Medicine; ATTEND Internal Medicine Geriatric Medicine
DX: A41.9 Sepsis, unspecified organism (principal); J15.6 Pneumonia due to other Gram-negative bacteria; C61 Malignant neoplasm of prostate; E87.6 Hypokalemia; E83.42 Hypomagnesemia; R19.7 Diarrhea, unspecified; E78.5 Hyperlipidemia, unspecified; Z79.899 Other long term (current) drug therapy; F17.210 Nicotine dependence, cigarettes, uncomplicated
CPT/HCPCS: 36415; 71020; 71250; 74177; 80048; 80053; 80061; 80076; 80301; 81001; 82140; 82150; 82272; 82550; 82803; 83036; 83605; 83690; 83735; 84100; 84133; 84439; 84443; 84484; 85025; 85027; 85610; 87040; 87045; 87086; 87205; 87493; 87804; 89055; 93005; 93010; 94640; 94667; 94668; 96360; 99285; G0479; J0295; J0692; J1650; J1956; J2405; J3475; J3480; J7030; J7512; J7620

== ENCOUNTER → 2016-11-23 | Outpatient (CLI) | payer MEDICAID, MEDICARE | LOC: RAD 08:07 | PROVIDERS: ATTEND Internal Medicine Medical Oncology | DX: C61 Malignant neoplasm of prostate (principal); M89.9 Disorder of bone, unspecified | CPT/HCPCS: 78306; A9503; Q9969 ==

== ENCOUNTER → 2017-02-27 | Outpatient (CLI) | payer MEDICARE ==
[2017-02-27 08:29] LABS: ABSOLUTE EOSINOPHILS # (AUTO) 0.1 10^3/uL (0.0-0.6); ABSOLUTE LYMPHOCYTES (AUTO) 2.2 10^3/uL (0.5-4.7); ABSOLUTE MONOCYTES (AUTO) 0.6 10^3/uL (0.1-1.4); ABSOLUTE NEUT (AUTO) 6.4 10^3/uL (1.7-8.2); BASOPHILS % (AUTO) 0.3 % (0-2); EOSINOPHILS % (AUTO) 0.6 % (0-6); HEMATOCRIT 40.2 % (37.9-51.0); HEMOGLOBIN 13.5 g/dL (13.5-17.0); HGB HCT DIFFERENCE 0.3; LYMPHOCYTES % (AUTO) 23.6 % (13-45); MEAN CORPUSCULAR HEMOGLOBIN 29.8 pg (27.0-33.4); MEAN CORPUSCULAR HGB CONC 33.5 g/dL (32.0-36.0); MEAN CORPUSCULAR VOLUME 89 fl (80-97); MONOCYTES % (AUTO) 6.5 % (3-13); RED BLOOD COUNT 4.52 10^6/uL (4.35-5.55); RED CELL DISTRIBUTION WIDTH 14.8 % (11.5-14.0); WHITE BLOOD COUNT 9.3 10^3/uL (4.0-10.5)
[2017-02-27 08:46] LABS: ALANINE AMINOTRANSFERASE 27 U/L (21-72); ALKALINE PHOSPHATASE 66 U/L (38-126); ANION GAP 9 (5-19); ASPARTATE AMINO TRANSFERASE 21 U/L (17-59); BILIRUBIN,DIRECT 0.2 mg/dL (0.0-0.4); BILIRUBIN,TOTAL 0.5 mg/dL (0.2-1.3); BLOOD UREA NITROGEN 13 mg/dL (7-20); CALCIUM 9.5 mg/dL (8.4-10.2); CARBON DIOXIDE 29 mmol/L (22-30); CHLORIDE 108 mmol/L (98-107); CREATININE RESULT 0.76 mg/dL (0.52-1.25); GLUCOSE 104 mg/dL (75-110); POTASSIUM 4.3 mmol/L (3.6-5.0); SODIUM 146.1 mmol/L (137-145); TOTAL PROTEIN 6.8 g/dL (6.3-8.2)
[2017-02-27 10:51] LABS: CHOLESTEROL 190.61 mg/dL (0-200); Direct HDL 57 mg/dL (>40); TRIGLYCERIDES 90 mg/dL (<150)
[2017-02-27 11:23] LABS: DIRECT LDL 101 mg/dL (<100)
== END ==
LOC: OD 07:21
PROVIDERS: ATTEND Internal Medicine Geriatric Medicine
DX: E78.00 Pure hypercholesterolemia, unspecified (principal); C61 Malignant neoplasm of prostate
CPT/HCPCS: 36415; 80053; 80061; 84153; 85025

== ENCOUNTER 2017-07-26 17:20 | Inpatient (IN) | payer MEDICARE, MEDICAID ==
[2017-07-26] MEDS ORDERED: NORMAL SALINE 1000 ML 1,000 ML IV ONE ×2 (17:31→20:13)
[2017-07-26] MEDS ORDERED: ONDANSETRON HCL INJ/PF 4 MG/2 ML SDV IV ONE (17:31)
--- NOTE | 2017-07-26 17:59 | RADIOLOGY REPORT (SQ) ---
EXAM DESCRIPTION: CHEST SINGLE VIEW COMPLETED DATE/TIME: 07/26/2017 5:50 pm REASON FOR STUDY: weakness COMPARISON: 11/10/2016. EXAM PARAMETERS: NUMBER OF VIEWS: One view. TECHNIQUE: Single frontal radiographic view of the chest acquired. RADIATION DOSE: NA LIMITATIONS: None. FINDINGS: LUNGS AND PLEURA: No opacities, masses or pneumothorax. No pleural effusion. MEDIASTINUM AND HILAR STRUCTURES: No masses. Contour normal. HEART AND VASCULAR STRUCTURES: Heart normal in size. Normal vasculature. BONES: No acute findings. HARDWARE: Vascular access port. OTHER: No other significant finding. IMPRESSION: NO ACUTE RADIOGRAPHIC FINDING IN THE CHEST. TECHNICAL DOCUMENTATION: JOB ID: [id number]
--- NOTE | 2017-07-26 18:05 | ER Document Report ---
ED General - General Mode of Arrival: Ambulatory Information source: Patient TRAVEL OUTSIDE OF THE [place] IN LAST 30 DAYS: No <ELIZABETH LONG - Last Filed: 07/26/17 22:23> <KEVIN STRATTON - Last Filed: 07/26/17 22:40> - General Stated Complaint: WEAKNESS Time Seen by Provider: 07/26/17 17:25 Notes: Patient is a 66-year-old male who presents to the emergency department today secondary to generalized weakness today. Patient states he was "feeling funny" and near syncope prior to arrival today. Patient states he began vomiting prior to arrival. Patient is on chemotherapy and has been for quite some time, he states these pills are not new. Patient states he has not urinated today which is not usual for him. Patient denies any pain or diarrhea. (ELIZABETH LONG ) - Related Data Allergies/Adverse Reactions: No Known Allergies Allergy (Verified 11/05/16 04:25) Past Medical History - General Information source: Patient - Social History Smoking Status: Never Smoker Cigarette use (# per day): No Frequency of alcohol use: None Drug Abuse: None Lives with: Family Family History: Reviewed & Not Pertinent, Hypertension - Past Medical History Cardiac Medical History: Reports: Hx Hypercholesterolemia Renal/ Medical History: Reports: Hx Benign Prostatic Hyperplasia Malignancy Medical History: Reports Hx Pancreatic Cancer, Reports Hx Prostate Cancer Musculoskeltal Medical History: Reports Hx Musculoskeletal Deformity, Reports Hx Musculoskeletal Trauma Past Surgical History: Reports: Hx Genitourinary Surgery - TURP, Hx Orthopedic Surgery - Lt knee - Immunizations Immunizations up to date: No Hx Diphtheria, Pertussis, Tetanus Vaccination: No <ELIZABETH LONG - Last Filed: 07/26/17 22:23> Review of Systems - Review of Systems Constitutional: No symptoms reported EENT: No symptoms reported Cardiovascular: See HPI, Syncope - near syncope Respiratory: No symptoms reported Gastrointestinal: See HPI, Nausea, Vomiting. denies: Diarrhea Genitourinary: No symptoms reported Male Genitourinary: No symptoms reported Musculoskeletal: No symptoms reported Skin: No symptoms reported Hematologic/Lymphatic: No symptoms reported Neurological/Psychological: No symptoms reported -: Yes All other systems reviewed and negative <ELIZABETH LONG - Last Filed: 07/26/17 22:23> Physical Exam - Vital signs Interpretation: Hypotensive <ELIZABETH LONG - Last Filed: 07/26/17 22:23> <KEVIN STRATTON - Last Filed: 07/26/17 22:40> - Vital signs Vitals: Resp 12 07/26/17 17:38 - Notes Notes: Physical Exam: General: Alert, appears in mild distress. HEENT: Normocephalic. Atraumatic. PERRL. Extraocular movements intact. Oropharynx clear. Teary eyed. Neck: Supple. Non-tender. Respiratory: No respiratory distress. Clear and equal breath sounds bilaterally. Cardiovascular: Tachycardic, regular rhythm. Abdominal: Gagging. Non-tender. No distension. Normal Bowel Sounds. Back: Non-tender. No deformity or step off. Extremities: Moves all four extremities. Upper extremities: Normal inspection. Normal ROM. Lower extremities: Normal inspection. No edema. Normal ROM. Neurological: Normal cognition. AAOx4. Normal speech. Psychological: Normal affect. Normal Mood. Skin: Warm. Dry. Normal color. (ELIZABETH LONG) Course - Laboratory Result Diagrams: 07/26/17 18:02 07/26/17 18:02 <ELIZABETH LONG - Last Filed: 07/26/17 22:23> - Laboratory Result Diagrams: 07/26/17 18:02 07/26/17 18:02 <KEVIN STRATTON - Last Filed: 07/26/17 22:40> - Re-evaluation Re-evalutation: 07/26/17 21:00 Patient is a 66-year-old male who presents with weakness, hypotension, vomiting , tachycardia. Patient has leukocytosis with bandemia. Patient also with bacteria in his urine. Chest x-ray within normal limits. Patient improved after fluids and Zofran. 07/26/17 22:[address] Haney. Recommend starting the patient on ertapenem to cover GI sources with his history of prostate cancer, leukocytosis, and bacteria in urine. Will cover for prostatitis. Patient at this time appears much better. Vitals are stable. Heart rate is down. Blood pressure is stable. Patient afebrile. Of note, the patient was having shaking chills which I believe were fever. Patient I do not think had an accurate oral temperature. Patient would not allow for a temperature Amanda or rectal temperature taken. I think part of the reason that the patient is feeling better is because he received Tylenol to treat what I suspected was a fever. Regardless, The patient has been started on antibiotics with urine and blood culture sent. He will be admitted to the [facility]. Patient and family understand and agree with plan. (KEVIN STRATTON) - Vital Signs Vital signs: Temp Pulse Resp BP Pulse Ox 98.4 F 18 131/77 H 98 07/26/17 20:40 07/26/17 22:01 07/26/17 22:01 07/26/17 22:01 - Laboratory Laboratory results interpreted by me: 07/26/17 07/26/17 07/26/17 18:02 18:02 20:24 WBC 22.2 H RDW 14.5 H Band Neutrophils % 2 L Lymphocytes % (Manual) 10 L Abs Neuts (Manual) 17.3 H Abs Monocytes (Manual) 2.4 H Sodium 145.4 H BUN 24 H Creatinine 2.07 H Est GFR ( Amer) 39 L Est GFR (Non-Af Amer) 32 L Glucose 116 H Calcium 10.7 H Urine Protein >=500 H Urine Blood MODERATE H Critical Care Note - Critical Care Note Total time excluding time spent on procedures (mins): 45 - Evaluation and management of hypotension, tachycardia, vomiting, acute renal insufficiency, coordination of admission, counseling of patient, multiple re-evaluations <KEVIN STRATTON - Last Filed: 07/26/17 22:40> Discharge <ELIZABETH LONG - Last Filed: 07/26/17 22:23> - Discharge Admitting Provider: Lyndon Unit Admitted: [facility] <KEVIN STRATTON - Last Filed: 07/26/17 22:40> - Discharge Clinical Impression: Weakness, Acute renal insufficiency Leukocytosis Qualifiers: Leukocytosis type: bandemia Qualified Code(s): D72.825 - Bandemia Vomiting Qualifiers: Vomiting type: unspecified Vomiting Intractability: non-intractable Nausea presence: with nausea Qualified Code(s): R11.2 - Nausea with vomiting, unspecified Condition: Stable Disposition: ADMITTED INPATIENT Scribe Attestation: 07/26/17 22:40 I personally performed the services described in the documentation, reviewed and edited the documentation which was dictated to the scribe in my presence, and it accurately records my words and actions. (KEVIN STRATTON) Scribe Documentation - Scribe Written by Scribe:: Frantz Rivas, 07/26/2017 191 acting as scribe for :: Carroll <ELIZABETH LONG - Last Filed: 07/26/17 22:23>
[2017-07-26 18:22] LABS: VENOUS BLOOD BASE EXCESS 0.6 mmol/L; VENOUS BLOOD HCO3 25.8 mmol/L (20-32); VENOUS BLOOD PCO2 43.2 mmHg (35-63); VENOUS BLOOD PH 7.39 (7.30-7.42)
[2017-07-26 18:25] LABS: HEMATOCRIT 44.9 % (37.9-51.0); HEMOGLOBIN 15.3 g/dL (13.5-17.0); MEAN CORPUSCULAR HEMOGLOBIN 30.5 pg (27.0-33.4); MEAN CORPUSCULAR HGB CONC 34.1 g/dL (32.0-36.0); MEAN CORPUSCULAR VOLUME 90 fl (80-97); RED BLOOD COUNT 5.01 10^6/uL (4.35-5.55); RED CELL DISTRIBUTION WIDTH 14.5 % (11.5-14.0); WHITE BLOOD COUNT 22.2 10^3/uL (4.0-10.5)
[2017-07-26 18:33] LABS: PROTHROMBIN TIME 12.5 SEC (11.4-15.4)
[2017-07-26 18:36] LABS: ALANINE AMINOTRANSFERASE 37 U/L (21-72); ALBUMIN 4.8 g/dL (3.5-5.0); ALKALINE PHOSPHATASE 98 U/L (38-126); ANION GAP 17 (5-19); ASPARTATE AMINO TRANSFERASE 33 U/L (17-59); BILIRUBIN,DIRECT 0.2 mg/dL (0.0-0.4); BILIRUBIN,TOTAL 0.5 mg/dL (0.2-1.3); BLOOD UREA NITROGEN 24 mg/dL (7-20); CALCIUM 10.7 mg/dL (8.4-10.2); CARBON DIOXIDE 24 mmol/L (22-30); CHLORIDE 104 mmol/L (98-107); CREATINE KINASE 107 U/L (55-170); CREATININE RESULT 2.07 mg/dL (0.52-1.25); GLUCOSE 116 mg/dL (75-110); POTASSIUM 3.9 mmol/L (3.6-5.0); SODIUM 145.4 mmol/L (137-145); TOTAL PROTEIN 8.1 g/dL (6.3-8.2)
[2017-07-26 18:46] LABS: BAND NEUTROPHILS % (MANUAL) 2 % (3-5); BASOPHILS % (MANUAL) 0 % (0-2); EOSINOPHILS % (MANUAL) 0 % (0-6); LYMPHOCYTES % (MANUAL) 10 % (13-45); TOTAL CELLS COUNTED 100
[2017-07-26 18:48] LABS: CREATINE KINASE MB 0.92 ng/mL (<4.55)
[2017-07-26 18:50] LABS: ANISOCYTOSIS SLIGHT; PLATELET CLUMPS PRESENT; POLYCHROMASIA SLIGHT
[2017-07-26 18:51] LABS: TROPONIN I < 0.012 ng/mL
--- NOTE | 2017-07-26 19:06 | RADIOLOGY REPORT (SQ) ---
EXAM DESCRIPTION: CT HEAD WITHOUT COMPLETED DATE/TIME: 07/26/2017 6:54 pm REASON FOR STUDY: vomiting, weakness COMPARISON: None. TECHNIQUE: Axial images acquired through the brain without intravenous contrast. Images reviewed wi th bone, brain and subdural windows. Images stored on PACS. All CT scanners at this facility use dose modulation, iterative reconstruction, and/or weight based d osing when appropriate to reduce radiation dose to as low as reasonably achievable (ALARA). [facility]: Dose Right [facility]: CareDose [facility]: Dose Right [facility]: Teradose 4D [facility]: Smart Mopapp RADIATION DOSE: Up-to-date CT equipment and radiation dose reduction techniques were employed. CTDIv ol: 64.6 mGy. DLP: 1163 mGy-cm. mGy. LIMITATIONS: None. FINDINGS: VENTRICLES: Prominent. CEREBRUM: No masses. No hemorrhage. No midline shift. Areas of low density in the white matter mos t likely due to chronic micro-vascular ischemic change. No evidence for acute infarction. CEREBELLUM: No masses. No hemorrhage. No alteration of density. No evidence for acute infarction. EXTRAAXIAL SPACES: Mild age-related involutional change. No fluid collections. No masses. ORBITS AND GLOBE: No intra- or extraconal masses. Normal contour of globe without masses. CALVARIUM: Small defect in the left temporal bone. No acute fracture. PARANASAL SINUSES: No fluid or mucosal thickening. SOFT TISSUES: No mass or hematoma. OTHER: No other significant finding. IMPRESSION: MILD CHRONIC CHANGES OF ATROPHY AND MICROVASCULAR ISCHEMIA. SMALL DEFECT IN THE LEFT TE MPORAL BONE, POSSIBLY RELATED TO PRIOR SURGERY. NO ACUTE PROCESS. TECHNICAL DOCUMENTATION: JOB ID: [id number] Quality ID # [id number]: Final reports with documentation of one or more dose reduction techniques (e.g., Au tomated exposure control, adjustment of the mA and/or kV according to patient size, use of iterative reconstruction technique) 2010 [employer]- All Rights Reserved
[2017-07-26] MEDS ORDERED: ACETAMINOPHEN 325 MG TABLET PO ONE (20:13)
[2017-07-26 21:06] LABS: APPEARANCE,URINE CLOUDY; BILIRUBIN,URINE NEGATIVE (NEGATIVE); GLUCOSE, URINE NEGATIVE (NEGATIVE); KETONES,URINE NEGATIVE (NEGATIVE); LEUKOCYTE ESTERASE,URINE NEGATIVE (NEGATIVE); NITRITE,URINE NEGATIVE (NEGATIVE); PROTEIN,URINE >=500 mg/dL (NEGATIVE); URINE SPECIFIC GRAVITY 1.015; UROBILINOGEN,URINE NEGATIVE mg/dL (<2.0)
[2017-07-26] MEDS ORDERED: ERTAPENEM SODIUM INJ 1 GM VIAL IV ONE (21:28)
[2017-07-27] MEDS ORDERED: NORMAL SALINE 1000 ML 1,000 ML IV PRN (00:30)
[2017-07-27 05:17] LABS: ABSOLUTE EOSINOPHILS # (AUTO) 0.1 10^3/uL (0.0-0.6); ABSOLUTE LYMPHOCYTES (AUTO) 3.1 10^3/uL (0.5-4.7); ABSOLUTE MONOCYTES (AUTO) 1.2 10^3/uL (0.1-1.4); ABSOLUTE NEUT (AUTO) 7.4 10^3/uL (1.7-8.2); BASOPHILS % (AUTO) 0.4 % (0-2); EOSINOPHILS % (AUTO) 0.9 % (0-6); HGB HCT DIFFERENCE 1.2; LYMPHOCYTES % (AUTO) 26.1 % (13-45); MEAN CORPUSCULAR HEMOGLOBIN 30.8 pg (27.0-33.4); MEAN CORPUSCULAR HGB CONC 34.4 g/dL (32.0-36.0); MEAN CORPUSCULAR VOLUME 90 fl (80-97); MONOCYTES % (AUTO) 10.2 % (3-13); RED BLOOD COUNT 4.02 10^6/uL (4.35-5.55); RED CELL DISTRIBUTION WIDTH 14.3 % (11.5-14.0); SEGMENTED NEUTROPHILS % (AUTO) 62.4 % (42-78); WHITE BLOOD COUNT 11.8 10^3/uL (4.0-10.5)
[2017-07-27 05:22] LABS: HEMOGLOBIN 12.4 g/dL (13.5-17.0)
[2017-07-27 05:28] LABS: ALANINE AMINOTRANSFERASE 26 U/L (21-72); ALBUMIN 3.3 g/dL (3.5-5.0); ALKALINE PHOSPHATASE 63 U/L (38-126); ANION GAP 11 (5-19); ASPARTATE AMINO TRANSFERASE 19 U/L (17-59); BILIRUBIN,DIRECT 0.2 mg/dL (0.0-0.4); BILIRUBIN,TOTAL 0.5 mg/dL (0.2-1.3); BLOOD UREA NITROGEN 24 mg/dL (7-20); CALCIUM 8.8 mg/dL (8.4-10.2); CARBON DIOXIDE 25 mmol/L (22-30); CHLORIDE 108 mmol/L (98-107); CREATININE RESULT 1.37 mg/dL (0.52-1.25); GLUCOSE 98 mg/dL (75-110); POTASSIUM 3.7 mmol/L (3.6-5.0); SODIUM 144.1 mmol/L (137-145); TOTAL PROTEIN 5.8 g/dL (6.3-8.2)
--- NOTE | 2017-07-27 08:55 | PDOC H&P ---
History of Present Illness Admission Date/PCP: 07/26/17 21:42 KENZIE KRYSTLE Patient complains of: Weakness, Nausea, Vomiting History of Present Illness: MARIAA ALCANTAR JR is a 66 year old male known to my practice presented to the ED with [id number] weakness on day of presentation, episodes of nausea and vomiting. He denied associated abdominal pain or diarrhea. There is associated fever and chills at home. He denied eating or drinking any unusual food or drink. He admitted to decrease urine output but denied any dysuria or flank pain. No hematuria.. No headache but he experience dizziness and lightheadedness with episode of near syncope preceding his coming to the ED. His initial ED evaluation was significant for leukocytosis with bandemia and slight abnormal urinalysis. Past Medical History Cardiac Medical History: Reports: Hyperlipidema Denies: Coronary Artery Disease, Myocardial Infarction, Hypertension Pulmonary Medical History: Denies: Asthma, Bronchitis, Chronic Obstructive Pulmonary Disease (COPD), Pneumonia Neurological Medical History: Denies: Seizures Malignancy Medical History: Reports: Pancreatic Cancer GI Medical History: Denies: Hepatitis, Hiatal Hernia Musculoskeltal Medical History: Denies: Arthritis Psychiatric Medical History: Denies: Depression Hematology: Denies: Anemia, Sickle Cell Disease Past Surgical History Past Surgical History: Reports: Orthopedic Surgery - Lt knee Denies: Pacemaker Social History Lives with: Family Smoking Status: Current Some Day Smoker Frequency of Alcohol Use: None Hx Recreational Drug Use: No Drugs: None Hx Prescription Drug Abuse: No Family History Family History: Reviewed & Not Pertinent, Hypertension Parental Family History Reviewed: Yes Children Family History Reviewed: Yes Sibling(s) Family History Reviewed.: Yes Medication/Allergy Home Medications: Enzalutamide [Xtandi] 80 mg PO DAILY 11/05/16 Prednisone 5 mg PO BID 11/05/16 Rosuvastatin Calcium 20 mg PO DAILY 11/05/16 Aspirin [Aspirin EC] 1 tab PO DAILY 07/26/17 Allergies/Adverse Reactions: No Known Allergies Allergy (Verified 11/05/16 04:25) Review of Systems Constitutional: PRESENT: chills, fatigue, fever(s), weakness. ABSENT: as per HPI, anorexia, headache(s), night sweats, weight gain, weight loss, other Eyes: PRESENT: visual disturbances - CAWG Ears: ABSENT: hearing changes Nose, Mouth, and Throat: ABSENT: as per HPI, headache(s), mouth pain, sore throat, vertigo, other Cardiovascular: ABSENT: as per HPI, chest pain, dyspnea on exertion, edema, orthropnea, palpitations, other Respiratory: ABSENT: as per HPI, cough, dyspnea, hemoptysis, sputum, other Gastrointestinal: ABSENT: abdominal pain, constipation, diarrhea, hematemesis, hematochezia, nausea, vomiting Genitourinary: ABSENT: difficulty urinating, dysuria, hematuria, nocturia Musculoskeletal: ABSENT: joint swelling Integumentary: ABSENT: rash, wounds Neurological: ABSENT: abnormal gait, abnormal speech, confusion, dizziness, focal weakness, syncope Psychiatric: ABSENT: anxiety, depression, homidical ideation, suicidal ideation Endocrine: ABSENT: cold intolerance, heat intolerance, polydipsia, polyuria Hematologic/Lymphatic: ABSENT: easy bleeding, easy bruising, lymphadenopathy Physical Exam Vital Signs: Temp Pulse Resp BP Pulse Ox 98.3 F 56 L 19 107/71 95 07/27/17 07:51 07/27/17 07:51 07/27/17 07:51 07/27/17 07:51 07/27/17 07:51 Intake & Output 07/26/17 07/27/17 07/28/17 06:59 06:59 06:59 Intake Total 488 Output Total 0 Balance 488 Weight 71.2 kg General appearance: PRESENT: no acute distress Head exam: PRESENT: atraumatic, normocephalic Eye exam: PRESENT: conjunctiva pink, EOMI, PERRLA. ABSENT: scleral icterus Ear exam: PRESENT: normal external ear exam Mouth exam: PRESENT: moist, tongue midline Throat exam: ABSENT: post pharyngeal erythema, tonsillar erythema, tonsillar exudate, tonsillogmegaly, other Neck exam: PRESENT: full ROM. ABSENT: carotid bruit, JVD, lymphadenopathy, thyromegaly Respiratory exam: PRESENT: clear to auscultation rebecca Cardiovascular exam: PRESENT: RRR. ABSENT: diastolic murmur, rubs, systolic murmur Vascular exam: PRESENT: normal capillary refill. ABSENT: pallor GI/Abdominal exam: PRESENT: normal bowel sounds, soft. ABSENT: distended, guarding, mass, organolmegaly, rebound, tenderness Rectal exam: PRESENT: deferred Gentrourinary exam: ABSENT: indwelling catheter Extremities exam: ABSENT: pedal edema Musculoskeletal exam: PRESENT: ambulatory, normal inspection Neurological exam: PRESENT: alert, awake, oriented to person, oriented to place , oriented to time, oriented to situation, CN II-XII grossly intact. ABSENT: motor sensory deficit Psychiatric exam: PRESENT: appropriate affect, normal mood. ABSENT: homicidal ideation, suicidal ideation Skin exam: PRESENT: dry, intact, warm. ABSENT: cyanosis, rash Results Laboratory Results: 07/27/17 04:30 07/27/17 04:30 07/27/17 07/27/17 04:30 04:30 WBC 11.8 H RBC 4.02 L Hgb 12.4 L D Hct 36.0 L MCV 90 MCH 30.8 MCHC 34.4 RDW 14.3 H Plt Count 172 Seg Neutrophils % 62.4 Lymphocytes % 26.1 Monocytes % 10.2 Eosinophils % 0.9 Basophils % 0.4 Absolute Neutrophils 7.4 Absolute Lymphocytes 3.1 Absolute Monocytes 1.2 Absolute Eosinophils 0.1 Absolute Basophils 0.0 Sodium 144.1 Potassium 3.7 Chloride 108 H Carbon Dioxide 25 Anion Gap 11 BUN 24 H Creatinine 1.37 H Est GFR ( Amer) > 60 Est GFR (Non-Af Amer) 52 L Glucose 98 Calcium 8.8 Total Bilirubin 0.5 AST 19 ALT 26 Alkaline Phosphatase 63 Total Protein 5.8 L Albumin 3.3 L Impressions: Chest X-Ray 07/26/17 17:31 IMPRESSION: NO ACUTE RADIOGRAPHIC FINDING IN THE CHEST. Head CT 07/26/17 18:20 IMPRESSION: MILD CHRONIC CHANGES OF ATROPHY AND MICROVASCULAR ISCHEMIA. SMALL DEFECT IN THE LEFT TEMPORAL BONE, POSSIBLY RELATED TO PRIOR SURGERY. NO ACUTE PROCESS. Assessment & Plan - Diagnosis (1) SIRS (systemic inflammatory response syndrome) Is this a current diagnosis for this admission?: Yes Plan: See attending physician orders. (2) Probable sepsis Is this a current diagnosis for this admission?: Yes Plan: See attending physician orders. (3) Acute renal insufficiency Is this a current diagnosis for this admission?: Yes Plan: See attending physician orders. (4) Malignant neoplasm of prostate Is this a current diagnosis for this admission?: Yes Plan: See attending physician orders. - Time Time Spent: 50 to 70 Minutes Medications reviewed and adjusted accordingly: Yes Anticipated discharge: Home Within: Other - Inpatient Certification Based on my medical assessment, after consideration of the patient's comorbidities, presenting symptoms, or acuity I expect that the services needed warrant INPATIENT care.: Yes I certify that my determination is in accordance with my understanding of Medicare's requirements for reasonable and necessary INPATIENT services [42 CFR 412.3e].: Yes Medical Necessity: Need Close Monitoring Due to Risk of Patient Decompensation, Need For IV Fluids, Need For Continuous Telemetry Monitoring, Need for IV Antibiotics, Risk of Complication if Not Cared For in Hospital 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
[2017-07-27] MEDS ORDERED: HEPARIN SOD (PORCINE) 1 UNIT/ML PF 3 ML SYRINGE IV SCH (09:15)
[2017-07-27] MEDS: ASPIRIN 81 MG TABLET, ENT COATED PO SCH (09:25)
[2017-07-27] MEDS ORDERED: ENZALUTAMIDE 80 MG PO SCH (10:00)
[2017-07-27] MEDS ORDERED: (PENDING PHARMACY ID) (Rosuvastatin Calcium [Rosuvastatin Calcium] 20 MG) PO SCH (10:00)
--- NOTE | 2017-07-27 12:01 | EKG REPORT ---
SEVERITY:- NORMAL ECG - SINUS RHYTHM : Confirmed by: Massiel Marcum 27-Jul-2017 12:00:54
[2017-07-27] MEDS ORDERED: Enzalutamide [Xtandi] 40 MG CAPSULE PO ONE (16:00)
[2017-07-27] MEDS: ERTAPENEM SODIUM 1 GM in NORMAL SALINE 50 ML IV SCH (21:29)
[2017-07-27] MEDS: ATORVASTATIN CALCIUM 40 MG TABLET PO SCH (21:29)
[2017-07-27] MEDS: NORMAL SALINE 1000 ML 1,000 ML IV PRN (21:33)
[2017-07-28 07:49] LABS: HEMATOCRIT 35.9 % (37.9-51.0); HEMOGLOBIN 12.3 g/dL (13.5-17.0); MEAN CORPUSCULAR HEMOGLOBIN 30.5 pg (27.0-33.4); MEAN CORPUSCULAR VOLUME 90 fl (80-97); RED BLOOD COUNT 4.01 10^6/uL (4.35-5.55); WHITE BLOOD COUNT 8.4 10^3/uL (4.0-10.5)
[2017-07-28 07:50] LABS: ABSOLUTE EOSINOPHILS # (AUTO) 0.1 10^3/uL (0.0-0.6); ABSOLUTE LYMPHOCYTES (AUTO) 2.2 10^3/uL (0.5-4.7); ABSOLUTE MONOCYTES (AUTO) 0.8 10^3/uL (0.1-1.4); ABSOLUTE NEUT (AUTO) 5.2 10^3/uL (1.7-8.2); BASOPHILS % (AUTO) 0.3 % (0-2); EOSINOPHILS % (AUTO) 1.5 % (0-6); LYMPHOCYTES % (AUTO) 26.3 % (13-45); MEAN CORPUSCULAR HGB CONC 34.1 g/dL (32.0-36.0); MONOCYTES % (AUTO) 9.9 % (3-13); RED CELL DISTRIBUTION WIDTH 14.5 % (11.5-14.0)
[2017-07-28 08:07] LABS: ALANINE AMINOTRANSFERASE 28 U/L (21-72); ALBUMIN 3.1 g/dL (3.5-5.0); ALKALINE PHOSPHATASE 61 U/L (38-126); ANION GAP 6 (5-19); ASPARTATE AMINO TRANSFERASE 18 U/L (17-59); BILIRUBIN,DIRECT 0.2 mg/dL (0.0-0.4); BILIRUBIN,TOTAL 0.5 mg/dL (0.2-1.3); BLOOD UREA NITROGEN 14 mg/dL (7-20); CALCIUM 9.1 mg/dL (8.4-10.2); CARBON DIOXIDE 25 mmol/L (22-30); CHLORIDE 111 mmol/L (98-107); CREATININE RESULT 0.92 mg/dL (0.52-1.25); GLUCOSE 91 mg/dL (75-110); SODIUM 142.2 mmol/L (137-145); TOTAL PROTEIN 5.6 g/dL (6.3-8.2)
[2017-07-28] MEDS ORDERED: Enzalutamide [Xtandi] 40 MG CAPSULE PO SCH (10:00)
[2017-07-28] MEDS: ASPIRIN 81 MG TABLET, ENT COATED PO SCH (10:41)
[2017-07-28] MEDS: NORMAL SALINE 1000 ML 1,000 ML IV PRN ×2 (11:37→23:06)
[2017-07-28] MEDS: Enzalutamide [Xtandi] 40 MG CAPSULE PO SCH (11:39)
[2017-07-28] MEDS ORDERED: ONDANSETRON HCL INJ/PF 4 MG/2 ML SDV IV PRN (11:57)
[2017-07-28] MEDS ORDERED: ENZALUTAMIDE 80 MG PO SCH (12:00)
--- NOTE | 2017-07-28 12:05 | PDOC PROGRESS REPORT ---
Subjective Progress Note for:: 07/28/17 Subjective:: Patient reported episodes of nausea but no vomiting. No abdominal pain. Diarrhea ceases so far this morning with 2 bowel movement so far. Tolerating oral feeding. No fever or chills. No chest pain or difficulty with breathing. Physical Exam Vital Signs: Temp Pulse Resp BP Pulse Ox 99.0 F 52 L 20 124/54 L 95 07/28/17 07:14 07/28/17 07:14 07/28/17 07:14 07/28/17 07:14 07/28/17 07:14 Intake & Output 07/27/17 07/28/17 07/29/17 06:59 06:59 06:59 Intake Total 488 4412 Output Total 0 2800 Balance 488 1612 Weight 71.2 kg 73.7 kg General appearance: PRESENT: no acute distress Head exam: PRESENT: atraumatic, normocephalic Eye exam: PRESENT: conjunctiva pale. ABSENT: scleral icterus Mouth exam: PRESENT: moist Respiratory exam: PRESENT: clear to auscultation rebecca Cardiovascular exam: PRESENT: RRR. ABSENT: diastolic murmur, rubs, systolic murmur GI/Abdominal exam: PRESENT: normal bowel sounds, soft. ABSENT: distended, guarding, mass, organolmegaly, rebound, tenderness Extremities exam: ABSENT: pedal edema Musculoskeletal exam: PRESENT: normal inspection Neurological exam: PRESENT: alert, awake, oriented to person, oriented to place , oriented to time, oriented to situation, CN II-XII grossly intact. ABSENT: motor sensory deficit Psychiatric exam: PRESENT: appropriate affect, normal mood. ABSENT: homicidal ideation, suicidal ideation Results Laboratory Results: 07/28/17 06:45 07/28/17 06:45 07/28/17 07/28/17 06:45 06:45 WBC 8.4 RBC 4.01 L Hgb 12.3 L Hct 35.9 L MCV 90 MCH 30.5 MCHC 34.1 RDW 14.5 H Plt Count 155 Seg Neutrophils % 62.0 Lymphocytes % 26.3 Monocytes % 9.9 Eosinophils % 1.5 Basophils % 0.3 Absolute Neutrophils 5.2 Absolute Lymphocytes 2.2 Absolute Monocytes 0.8 Absolute Eosinophils 0.1 Absolute Basophils 0.0 Sodium 142.2 Potassium 4.0 Chloride 111 H Carbon Dioxide 25 Anion Gap 6 BUN 14 Creatinine 0.92 Est GFR ( Amer) > 60 Est GFR (Non-Af Amer) > 60 Glucose 91 Calcium 9.1 Total Bilirubin 0.5 AST 18 ALT 28 Alkaline Phosphatase 61 Total Protein 5.6 L Albumin 3.1 L Impressions: Chest X-Ray 07/26/17 17:31 IMPRESSION: NO ACUTE RADIOGRAPHIC FINDING IN THE CHEST. Head CT 07/26/17 18:20 IMPRESSION: MILD CHRONIC CHANGES OF ATROPHY AND MICROVASCULAR ISCHEMIA. SMALL DEFECT IN THE LEFT TEMPORAL BONE, POSSIBLY RELATED TO PRIOR SURGERY. NO ACUTE PROCESS. Assessment & Plan - Diagnosis (1) SIRS (systemic inflammatory response syndrome) Is this a current diagnosis for this admission?: Yes (2) Probable sepsis Is this a current diagnosis for this admission?: Yes (3) Acute renal insufficiency Is this a current diagnosis for this admission?: Yes (4) Malignant neoplasm of prostate Is this a current diagnosis for this admission?: Yes - Time Time Spent with patient: 25-34 minutes Medications reviewed and adjusted accordingly: Yes Anticipated discharge: Home Within: Other - Inpatient Certification Based on my medical assessment, after consideration of the patient's comorbidities, presenting symptoms, or acuity I expect that the services needed warrant INPATIENT care.: Yes I certify that my determination is in accordance with my understanding of Medicare's requirements for reasonable and necessary INPATIENT services [42 CFR 412.3e].: Yes Medical Necessity: Need Close Monitoring Due to Risk of Patient Decompensation, Need For IV Fluids, Need For Continuous Telemetry Monitoring, Need for IV Antibiotics, Risk of Complication if Not Cared For in Hospital Post Hospital 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 Restart on preadmission medications. Follow up on culture report. Urine culture no growth x 2 days.
[2017-07-28] MEDS: ATORVASTATIN CALCIUM 40 MG TABLET PO SCH (23:05)
[2017-07-28] MEDS: ERTAPENEM SODIUM 1 GM in NORMAL SALINE 50 ML IV SCH (23:05)
[2017-07-29] MEDS: ASPIRIN 81 MG TABLET, ENT COATED PO SCH (09:09)
[2017-07-29] MEDS ORDERED: ASPIRIN 81 MG TABLET, ENT COATED PO SCH (10:00)
[2017-07-29] MEDS ORDERED: (PENDING PHARMACY ID) (Rosuvastatin Calcium [Crestor 20 Mg Tablet] 20 MG) PO SCH (10:00)
[2017-07-29] MEDS: NORMAL SALINE 1000 ML 1,000 ML IV PRN (11:10)
[2017-07-29] MEDS: Enzalutamide [Xtandi] 40 MG CAPSULE PO SCH (11:50)
--- NOTE | 2017-07-29 14:34 | PDOC PROGRESS REPORT ---
Subjective Progress Note for:: 07/29/17 Subjective:: Patient reported episodes of diarrhea. No abdominal pain, nausea, or vomiting. Tolerating oral feeding. No fever or chills. No chest pain or difficulty with breathing. Physical Exam Vital Signs: Temp Pulse Resp BP Pulse Ox 97.7 F 56 L 16 116/61 99 07/29/17 11:20 07/29/17 11:20 07/29/17 11:20 07/29/17 11:20 07/29/17 11:20 Intake & Output 07/28/17 07/29/17 07/30/17 06:59 06:59 06:59 Intake Total 4412 4264 475 Output Total 2800 1550 700 Balance 1612 2714 -225 Weight 73.7 kg 71.6 kg Physical Exam: General appearance: PRESENT: no acute distress Head exam: PRESENT: atraumatic, normocephalic Eye exam: PRESENT: conjunctiva pale. ABSENT: scleral icterus Mouth exam: PRESENT: moist Respiratory exam: PRESENT: clear to auscultation rebecca Cardiovascular exam: PRESENT: RRR. ABSENT: diastolic murmur, rubs, systolic murmur GI/Abdominal exam: PRESENT: normal bowel sounds, soft. ABSENT: distended, guarding, mass, organomegaly, rebound, tenderness Extremities exam: ABSENT: pedal edema Musculoskeletal exam: PRESENT: normal inspection Neurological exam: PRESENT: alert, awake, oriented to person, oriented to place , oriented to time, oriented to situation, CN II-XII grossly intact. ABSENT: motor sensory deficit Psychiatric exam: PRESENT: appropriate affect, normal mood. ABSENT: homicidal ideation, suicidal ideation Results Laboratory Results: 07/28/17 06:45 07/28/17 06:45 Impressions: Chest X-Ray 07/26/17 17:31 IMPRESSION: NO ACUTE RADIOGRAPHIC FINDING IN THE CHEST. Head CT 07/26/17 18:20 IMPRESSION: MILD CHRONIC CHANGES OF ATROPHY AND MICROVASCULAR ISCHEMIA. SMALL DEFECT IN THE LEFT TEMPORAL BONE, POSSIBLY RELATED TO PRIOR SURGERY. NO ACUTE PROCESS. Assessment & Plan - Diagnosis (1) SIRS (systemic inflammatory response syndrome) Is this a current diagnosis for this admission?: Yes (2) Probable sepsis Is this a current diagnosis for this admission?: Yes (3) Acute renal insufficiency Is this a current diagnosis for this admission?: Yes (4) Malignant neoplasm of prostate Is this a current diagnosis for this admission?: Yes - Time Time Spent with patient: 25-34 minutes Medications reviewed and adjusted accordingly: Yes Anticipated discharge: Home Within: Other - Inpatient Certification Based on my medical assessment, after consideration of the patient's comorbidities, presenting symptoms, or acuity I expect that the services needed warrant INPATIENT care.: Yes I certify that my determination is in accordance with my understanding of Medicare's requirements for reasonable and necessary INPATIENT services [42 CFR 412.3e].: Yes Medical Necessity: Need Close Monitoring Due to Risk of Patient Decompensation, Need For IV Fluids, Need For Continuous Telemetry Monitoring, Need for IV Antibiotics, Risk of Complication if Not Cared For in Hospital Post 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 Follow up on blood culture findings. Obtain stool wbc , culture and C.difficle toxin titer in view of his continue intermittent diarrhea. Obtain CBC with diff and CMP in AM.
[2017-07-29] MEDS: ATORVASTATIN CALCIUM 40 MG TABLET PO SCH (19:46)
[2017-07-29] MEDS: ERTAPENEM SODIUM 1 GM in NORMAL SALINE 50 ML IV SCH (19:46)
[2017-07-30] MEDS: NORMAL SALINE 1000 ML 1,000 ML IV PRN ×2 (00:02→12:33)
[2017-07-30 06:02] LABS: ABSOLUTE EOSINOPHILS # (AUTO) 0.1 10^3/uL (0.0-0.6); ABSOLUTE LYMPHOCYTES (AUTO) 1.9 10^3/uL (0.5-4.7); ABSOLUTE MONOCYTES (AUTO) 0.8 10^3/uL (0.1-1.4); BASOPHILS % (AUTO) 0.4 % (0-2); EOSINOPHILS % (AUTO) 1.9 % (0-6); HEMATOCRIT 36.1 % (37.9-51.0); HEMOGLOBIN 12.4 g/dL (13.5-17.0); HGB HCT DIFFERENCE 1.1; LYMPHOCYTES % (AUTO) 24.4 % (13-45); MEAN CORPUSCULAR HEMOGLOBIN 30.6 pg (27.0-33.4); MEAN CORPUSCULAR HGB CONC 34.4 g/dL (32.0-36.0); MEAN CORPUSCULAR VOLUME 89 fl (80-97); MONOCYTES % (AUTO) 9.7 % (3-13); RED BLOOD COUNT 4.05 10^6/uL (4.35-5.55); RED CELL DISTRIBUTION WIDTH 14.1 % (11.5-14.0); SEGMENTED NEUTROPHILS % (AUTO) 63.6 % (42-78); WHITE BLOOD COUNT 7.8 10^3/uL (4.0-10.5)
[2017-07-30 06:21] LABS: ALANINE AMINOTRANSFERASE 27 U/L (21-72); ALBUMIN 3.2 g/dL (3.5-5.0); ALKALINE PHOSPHATASE 73 U/L (38-126); ANION GAP 9 (5-19); ASPARTATE AMINO TRANSFERASE 18 U/L (17-59); BILIRUBIN,DIRECT 0.2 mg/dL (0.0-0.4); BILIRUBIN,TOTAL 0.7 mg/dL (0.2-1.3); BLOOD UREA NITROGEN 7 mg/dL (7-20); CALCIUM 8.9 mg/dL (8.4-10.2); CARBON DIOXIDE 26 mmol/L (22-30); CHLORIDE 107 mmol/L (98-107); CREATININE RESULT 0.88 mg/dL (0.52-1.25); GLUCOSE 89 mg/dL (75-110); POTASSIUM 3.8 mmol/L (3.6-5.0); SODIUM 141.7 mmol/L (137-145); TOTAL PROTEIN 5.8 g/dL (6.3-8.2)
[2017-07-30] MEDS: ASPIRIN 81 MG TABLET, ENT COATED PO SCH (10:23)
[2017-07-30] MEDS: ACETAMINOPHEN 325 MG TABLET PO PRN (12:34)
[2017-07-30] MEDS: Enzalutamide [Xtandi] 40 MG CAPSULE PO SCH (12:50)
--- NOTE | 2017-07-30 19:31 | PDOC PROGRESS REPORT ---
Subjective Progress Note for:: 07/30/17 Subjective:: Patient reported improvement in his diarrhea with some amount of formed stool so far today. No abdominal pain, nausea, or vomiting. Tolerating oral feeding. No fever or chills. No chest pain or difficulty with breathing. Physical Exam Vital Signs: Temp Pulse Resp BP Pulse Ox 98.5 F 57 L 18 132/72 H 100 07/30/17 16:03 07/30/17 16:03 07/30/17 16:03 07/30/17 16:03 07/30/17 16:03 Intake & Output 07/29/17 07/30/17 07/31/17 06:59 06:59 06:59 Intake Total 4264 3600 1500 Output Total 1550 1925 Balance 2714 1675 1500 Weight 71.6 kg 71.4 kg Physical Exam: General appearance: PRESENT: no acute distress Head exam: PRESENT: atraumatic, normocephalic Eye exam: PRESENT: conjunctiva pale. ABSENT: scleral icterus Mouth exam: PRESENT: moist Respiratory exam: PRESENT: clear to auscultation rebecca Cardiovascular exam: PRESENT: RRR. ABSENT: diastolic murmur, rubs, systolic murmur GI/Abdominal exam: PRESENT: normal bowel sounds, soft. ABSENT: distended, guarding, mass, organomegaly, rebound, tenderness Extremities exam: ABSENT: pedal edema Musculoskeletal exam: PRESENT: normal inspection Neurological exam: PRESENT: alert, awake, oriented to person, oriented to place , oriented to time, oriented to situation, CN II-XII grossly intact. ABSENT: motor sensory deficit Psychiatric exam: PRESENT: appropriate affect, normal mood. ABSENT: homicidal ideation, suicidal ideation Results Laboratory Results: 07/30/17 04:52 07/30/17 04:52 07/30/17 07/30/17 04:52 04:52 WBC 7.8 RBC 4.05 L Hgb 12.4 L Hct 36.1 L MCV 89 MCH 30.6 MCHC 34.4 RDW 14.1 H Plt Count 173 Seg Neutrophils % 63.6 Lymphocytes % 24.4 Monocytes % 9.7 Eosinophils % 1.9 Basophils % 0.4 Absolute Neutrophils 5.0 Absolute Lymphocytes 1.9 Absolute Monocytes 0.8 Absolute Eosinophils 0.1 Absolute Basophils 0.0 Sodium 141.7 Potassium 3.8 Chloride 107 Carbon Dioxide 26 Anion Gap 9 BUN 7 Creatinine 0.88 Est GFR ( Amer) > 60 Est GFR (Non-Af Amer) > 60 Glucose 89 Calcium 8.9 Total Bilirubin 0.7 AST 18 ALT 27 Alkaline Phosphatase 73 Total Protein 5.8 L Albumin 3.2 L Impressions: Chest X-Ray 07/26/17 17:31 IMPRESSION: NO ACUTE RADIOGRAPHIC FINDING IN THE CHEST. Head CT 07/26/17 18:20 IMPRESSION: MILD CHRONIC CHANGES OF ATROPHY AND MICROVASCULAR ISCHEMIA. SMALL DEFECT IN THE LEFT TEMPORAL BONE, POSSIBLY RELATED TO PRIOR SURGERY. NO ACUTE PROCESS. Assessment & Plan - Diagnosis (1) SIRS (systemic inflammatory response syndrome) Is this a current diagnosis for this admission?: Yes (2) Probable sepsis Is this a current diagnosis for this admission?: Yes (3) Acute renal insufficiency Is this a current diagnosis for this admission?: Yes (4) Malignant neoplasm of prostate Is this a current diagnosis for this admission?: Yes - Time Time Spent with patient: 25-34 minutes Medications reviewed and adjusted accordingly: Yes Anticipated discharge: Home Within: Other - Inpatient Certification Based on my medical assessment, after consideration of the patient's comorbidities, presenting symptoms, or acuity I expect that the services needed warrant INPATIENT care.: Yes I certify that my determination is in accordance with my understanding of Medicare's requirements for reasonable and necessary INPATIENT services [42 CFR 412.3e].: Yes Medical Necessity: Need Close Monitoring Due to Risk of Patient Decompensation, Need For IV Fluids, Need for IV Antibiotics, Risk of Complication if Not Cared For in Hospital Post Hospital Care: D/C Back Order Clerk Documentation - Plan Summary Plan Summary: Continue current medication management. His leukocytosis have resolved. Blood culture is no growth x 4 days. If patient continue to demonstrate improvement in his symptoms, I did discuss possible discharge home tomorrow with him during this bedside evaluation.
[2017-07-30] MEDS: ERTAPENEM SODIUM 1 GM in NORMAL SALINE 50 ML IV SCH (20:59)
[2017-07-30] MEDS: ATORVASTATIN CALCIUM 40 MG TABLET PO SCH (20:59)
[2017-07-31] MEDS: ACETAMINOPHEN 325 MG TABLET PO PRN (10:40)
[2017-07-31] MEDS: ASPIRIN 81 MG TABLET, ENT COATED PO SCH (10:41)
[2017-07-31] MEDS: NORMAL SALINE 1000 ML 1,000 ML IV PRN (10:41)
[2017-07-31] MEDS: Enzalutamide [Xtandi] 40 MG CAPSULE PO SCH (12:45)
[2017-07-31] MEDS ORDERED: ERTAPENEM SODIUM 1 GM in NORMAL SALINE 50 ML IV SCH (18:15)
--- NOTE | 2017-07-31 18:17 | PDOC DISCHARGE SUMMARY ---
General - Admit/Disc Date/PCP Admission Date/Primary Care Provider: 07/26/17 21:42 KENZIE KRYSTLE Discharge Date: 07/31/17 - Discharge Diagnosis (1) SIRS (systemic inflammatory response syndrome) Is this a current diagnosis for this admission?: Yes (2) Probable sepsis Is this a current diagnosis for this admission?: Yes (3) Acute renal insufficiency Is this a current diagnosis for this admission?: Yes (4) Malignant neoplasm of prostate Is this a current diagnosis for this admission?: Yes - Additional Information Discharge Diet: Regular Discharge Activity: Activity As Tolerated Home Medications: Aspirin [Ecotrin 81 mg EC Tablet] 81 mg PO DAILY 07/27/17 Enzalutamide [Xtandi] 80 mg PO NOON 07/27/17 Rosuvastatin Calcium [Crestor 20 mg Tablet] 20 mg PO DAILY 07/27/17 Fluconazole [Diflucan 100 Mg Tablet] 100 mg PO DAILY #10 tablet 07/31/17 History of Present Illness History of Present Illness: MARIAA ALCANTAR JR is a 66 year old male known to my practice presented to the ED with [id number] weakness on day of presentation, episodes of nausea and vomiting. He denied associated abdominal pain or diarrhea. There is associated fever and chills at home. He denied eating or drinking any unusual food or drink. He admitted to decrease urine output but denied any dysuria or flank pain. No hematuria.. No headache but he experience dizziness and lightheadedness with episode of near syncope preceding his coming to the ED. His initial ED evaluation was significant for leukocytosis with bandemia and slight abnormal urinalysis. Hospital Course Hospital Course: Patient was treated with IV Invanz antibiotic coverage due to his presenting symptoms and associated leukocytosis. His leukocytosis did resolved and his associated diarrhea improved. His blood culture was no growth x 5 days but his stool culture did grew Brittani species. He would be treated with Diflucan 100 mg p.o daily x 10 days in view of his immunocompromise status on chemotherapy for prostate cancer. Physical Exam Vital Signs: Temp Pulse Resp BP Pulse Ox 98.2 F 59 L 18 127/88 H 100 07/31/17 15:45 07/31/17 15:45 07/31/17 15:45 07/31/17 15:45 07/31/17 15:45 Intake & Output 07/30/17 07/31/1717 06:59 06:59 06:59 Intake Total 3600 2850 1500 Output Total 1925 1600 Balance 1675 1250 1500 Weight 71.4 kg 72.2 kg Physical Exam: General appearance: PRESENT: no acute distress Head exam: PRESENT: atraumatic, normocephalic Eye exam: PRESENT: conjunctiva pale. ABSENT: scleral icterus Mouth exam: PRESENT: moist Respiratory exam: PRESENT: clear to auscultation rebecca Cardiovascular exam: PRESENT: RRR. ABSENT: diastolic murmur, rubs, systolic murmur GI/Abdominal exam: PRESENT: normal bowel sounds, soft. ABSENT: distended, guarding, mass, organomegaly, rebound, tenderness Extremities exam: ABSENT: pedal edema Musculoskeletal exam: PRESENT: normal inspection Neurological exam: PRESENT: alert, awake, oriented to person, oriented to place , oriented to time, oriented to situation, CN II-XII grossly intact. ABSENT: motor sensory deficit Psychiatric exam: PRESENT: appropriate affect, normal mood. ABSENT: homicidal ideation, suicidal ideation Results Laboratory Results: 07/30/17 04:52 07/30/17 04:52 Impressions: Chest X-Ray 07/26/17 17:31 IMPRESSION: NO ACUTE RADIOGRAPHIC FINDING IN THE CHEST. Head CT 07/26/17 18:20 IMPRESSION: MILD CHRONIC CHANGES OF ATROPHY AND MICROVASCULAR ISCHEMIA. SMALL DEFECT IN THE LEFT TEMPORAL BONE, POSSIBLY RELATED TO PRIOR SURGERY. NO ACUTE PROCESS. Qualifiers PATEINT BEING DISCHARGED WITH ANY OF THE FOLLOWING DIAGNOSIS?: No Plan Discharge Plan: D/C homer today. Follow up in the office as instructed upon discharge.
[2017-07-31] MEDS: ERTAPENEM SODIUM 1 GM in NORMAL SALINE 50 ML IV SCH (18:30)
[2017-07-31 19:34] VITALS: BP 119/70
== END 2017-07-31 19:48 | disposition home or self-care (01) | DRG 872 ==
LOC: ER 17:20 → EH 21:42 → 3N 23:42
PROVIDERS: ADMIT Internal Medicine Geriatric Medicine; ATTEND Internal Medicine Geriatric Medicine
DX: A41.9 Sepsis, unspecified organism (principal); B37.89 Other sites of candidiasis; N28.9 Disorder of kidney and ureter, unspecified; R19.7 Diarrhea, unspecified; C61 Malignant neoplasm of prostate; E78.5 Hyperlipidemia, unspecified; Z79.82 Long term (current) use of aspirin; Z79.899 Other long term (current) drug therapy; F17.200 Nicotine dependence, unspecified, uncomplicated
CPT/HCPCS: 36415; 70450; 71010; 80053; 81001; 82550; 82553; 82803; 83605; 84484; 85025; 85610; 87040; 87045; 87086; 87205; 87493; 89055; 93005; 93010; 96361; 96374; 99291; J1335; J1642; J2405; J7030

== ENCOUNTER → 2017-09-24 | Outpatient (CLI) | payer MEDICARE ==
--- NOTE | 2017-09-24 12:33 | RADIOLOGY REPORT (SQ) ---
EXAM DESCRIPTION: C SP 4 OR 5 VIEWS COMPLETED DATE/TIME: 09/24/2017 9:10 am REASON FOR STUDY: MALIGNANT NEOPLASM OF PROSTATE C61 MALIGNANT NEOPLASM OF PROSTATE COMPARISON: MR 05/31/2015 NUMBER OF VIEWS: Five views. TECHNIQUE: AP, lateral, obliques and odontoid radiographic images acquired of the cervical spine. LIMITATIONS: None. FINDINGS: MINERALIZATION: Normal. ALIGNMENT: Anatomic. VERTEBRAE: Vertebral bodies of normal height. DISCS: No significant osteophytes or sclerosis. Disc height maintained. FORAMINA: No osteophytes or foraminal narrowing. LATERAL AND POSTERIOR ELEMENTS: Facets, lateral masses and spinous processes without significant find ings. HARDWARE: None in the spine. SOFT TISSUES: No masses or calcifications. Lung apices clear. OTHER: No other significant finding. IMPRESSION: No acute abnormality. No osseous metastases are appreciated. TECHNICAL DOCUMENTATION: JOB ID: [id number] [employer]- All Rights Reserved
--- NOTE | 2017-09-24 12:41 | RADIOLOGY REPORT (SQ) ---
EXAM DESCRIPTION: T SPINE AP/LAT COMPLETED DATE/TIME: 09/24/2017 9:10 am REASON FOR STUDY: MALIGNANT NEOPLASM OF PROSTATE C61 MALIGNANT NEOPLASM OF PROSTATE COMPARISON: MR 05/31/2015 NUMBER OF VIEWS: Two views. TECHNIQUE: AP and lateral radiographic images acquired of the thoracic spine. LIMITATIONS: None. FINDINGS: MINERALIZATION: Normal. ALIGNMENT: Normal. No scoliosis. VERTEBRAE: No fracture or bone lesion. Maintained height, normal segmentation. No osseous lesions a re seen. DISCS: No significant loss of height or significant narrowing. No large osteophytes. HARDWARE: None in the spine. MEDIASTINUM AND SOFT TISSUES: Normal heart size and aortic contour. No soft tissue abnormality. VISUALIZED LUNG OCAMPO: Clear. OTHER: No other significant finding. IMPRESSION: NO SIGNIFICANT RADIOGRAPHIC FINDING IN THE THORACIC SPINE. TECHNICAL DOCUMENTATION: JOB ID: [id number] [employer]- All Rights Reserved
== END ==
LOC: OD 08:42
PROVIDERS: ATTEND Internal Medicine Medical Oncology
DX: C61 Malignant neoplasm of prostate (principal)
CPT/HCPCS: 72050; 72070

== ENCOUNTER → 2017-11-20 | Outpatient (CLI) | payer MEDICAID, MEDICARE ==
--- NOTE | 2017-11-20 10:33 | RADIOLOGY REPORT (SQ) ---
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 T1 post zachary olinium sequences. CONTRAST TYPE AND DOSE: 15 mL Prohance. RENAL FUNCTION: GFR > 60. LIMITATIONS: None. FINDINGS: ALIGNMENT: Normal. VERTEBRAE: Intact. BONE MARROW: There is abnormal bone marrow signal throughout the T1 vertebral body, the T2 vertebral body worrisome for metastatic disease. Abnormal marrow signal in the mid body of C7 is present also worrisome for metastatic disease. All of these lesions enhance with IV gadolinium DISCS: Normal. No significant abnormal signal or loss of height. HARDWARE: None in the spine. CORD AND BASE OF BRAIN: Normal in size and signal intensity. No abnormal contrast enhancement of the cord or posterior fossa structures in the field of view SOFT TISSUES: No soft tissue masses. C1-C2: No significant spinal stenosis. C2-C3: No significant spinal stenosis or exit foraminal stenosis. C3-C4: No significant spinal stenosis or exit foraminal stenosis. C4-C5: No significant spinal stenosis or exit foraminal stenosis. C5-C6: No significant spinal stenosis or exit foraminal stenosis. C6-C7: No significant spinal stenosis or exit foraminal stenosis. C7-T1: No significant spinal stenosis or exit foraminal stenosis. OTHER: No other significant finding. IMPRESSION: Bony metastatic disease in the C7, T1, and T2 levels. No bulky epidural tumor. No path ologic fracture. No abnormal cervical or upper thoracic cord contrast enhancement or edema COMMENT: None. TECHNICAL DOCUMENTATION: JOB ID: [id number] [employer]- All Rights Reserved
--- NOTE | 2017-11-20 10:54 | RADIOLOGY REPORT (SQ) ---
EXAM DESCRIPTION: MRI THORACIC SPINE COMBO COMPLETED DATE/TIME: 11/20/2017 10:11 am REASON FOR STUDY: PROSTATE CA C61 MALIGNANT NEOPLASM OF PROSTATE COMPARISON: MRI cervical spine same date MRI thoracic spine 05/31/2015 TECHNIQUE: Sagittal and Axial imaging includes T1, T2, STIR and gradient echo sequences. T1 post ga dolinium sequences. CONTRAST TYPE AND DOSE: 15 mL Multihance. RENAL FUNCTION: GFR > 60. LIMITATIONS: None. FINDINGS: LOCALIZER: No worrisome findings. ALIGNMENT: Normal. VERTEBRAE: Intact. No compression deformities BONE MARROW: There is heavy burden of disease in the T1 and T2 vertebral bodies, similar compared to 05/31/2015. These lesions exhibit contrast enhancement. The upper half of T3 demonstrates diffuse abnormal marrow signal from metastatic disease. This has p rogressed since 2015. This lesion exhibits contrast enhancement 7 mm sclerotic lesion in the posterosuperior corner of C4, new compared to 2015. This lesion exhibit s contrast enhancement. HARDWARE: None in the spine. CORD: Normal in size and signal intensity. No abnormal contrast enhancement of the cord or meninges. No abnormal thoracic nerve root contrast enhancement SOFT TISSUES: No soft tissue masses. THORACIC DISCS T1-T12: No significant spinal stenosis or exit foraminal stenosis. OTHER: No other significant finding. IMPRESSION: NORMAL MRI THORACIC SPINE. TECHNICAL DOCUMENTATION: JOB ID: [id number]- All Rights Reserved
== END ==
LOC: RAD 08:12
PROVIDERS: ATTEND Internal Medicine Medical Oncology
DX: C61 Malignant neoplasm of prostate (principal); C79.51 Secondary malignant neoplasm of bone
CPT/HCPCS: 82565; 72156; 72157; A9577

== ENCOUNTER → 2018-02-04 | Outpatient (CLI) | payer MEDICAID, MEDICARE ==
--- NOTE | 2018-02-05 16:31 | RADIOLOGY REPORT (SQ) ---
EXAM DESCRIPTION: PET CT SKULL/THIGH COMPLETED DATE/TIME: 02/04/2018 11:12 pm REASON FOR STUDY: PROSTATE CANCER C61 MALIGNANT NEOPLASM OF PROSTATE COMPARISON: CT chest abdomen pelvis 11/05/2016 Bone scan 11/23/2016, 02/05/2018 MRI thoracic spine 11/20/2017 MRI cervical spine 11/20/2017 MRI pelvis 02/05/2018 RADIONUCLIDE AND DOSE: 11.6 mCi F18 FDG The route of agent administration: Intravenous FASTING BLOOD SUGAR: 128 mg/dl CONTRAST TYPE AND DOSE: No CT contrast given. TECHNIQUE: Blood glucose level was verified. Above dose of FDG was injected intravenously. 2-D seg mented attenuation correction images were obtained from the base of the skull to the midthighs. Nonc ontrast CT images were obtained for attenuation correction and fusion with emission images. CT image s were performed without oral or intravenous contrast and are not sensitive for parenchymal lesions. A series of overlapping emission PET images were obtained. Images reviewed and manipulated at [facility] work station by the radiologist. Images stored on PACS. LIMITATIONS: None. FINDINGS: HEAD AND NECK: No areas of abnormal metabolic activity in the soft tissues of the head and neck. CHEST: No areas of abnormal metabolic activity in the chest. ABDOMEN AND PELVIS: No areas of abnormal metabolic activity in the abdomen or pelvis. Expected physi ologic activity is present in the genitourinary system and bowel. PROXIMAL LOWER EXTREMITIES: No areas of abnormal metabolic activity in the soft tissues of the lower extremities. BONES: No abnormal metabolic activity in the visualized skeleton. 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 Colonic diverticu li without CT signs acute diverticulitis. OTHER: No other significant findings. IMPRESSION: No hypermetabolic lesions worrisome for metastatic disease, given history of prostate ca ncer. TECHNICAL DOCUMENTATION: JOB ID: [id number] [employer]- All Rights Reserved Reading location - IP/workstation name: [email or web address]-[email or web address]
== END ==
LOC: RAD 17:29
PROVIDERS: ATTEND Internal Medicine Medical Oncology
DX: C61 Malignant neoplasm of prostate (principal)
CPT/HCPCS: 78815; A9552

== ENCOUNTER → 2018-02-05 | Outpatient (CLI) | payer MEDICAID, MEDICARE ==
--- NOTE | 2018-02-05 13:52 | RADIOLOGY REPORT (SQ) ---
EXAM DESCRIPTION: MRI PELVIS COMBO COMPLETED DATE/TIME: 02/05/2018 12:22 pm REASON FOR STUDY: PROSTATE CA (C61 C61 MALIGNANT NEOPLASM OF PROSTATE COMPARISON: None. TECHNIQUE: Multiplanar multisequence imaging performed without and with contrast including axial, sa gittal and coronal T2, axial T, axial gradient fat sat T1, axial, sagittal and coronal fat sat T2 pos t contrast. CONTRAST TYPE AND DOSE: 15 mL IV ProHance gadolinium RENAL FUNCTION: GFR > 60. LIMITATIONS: Please note this study was not performed as a diagnostic exam for the prostate itself. Large xboay-jr-kdvt imaging to evaluate the bony pelvis was performed. FINDINGS: BLADDER AND URETHRA: Bladder is partially decompressed. At the inferior bladder, at the e xpected location of the urethral opening into the bladder, a 3.5 x 3.4 cm enhancing soft tissue mass is present, extending up into the bladder base from the residua of the patient's prostate. This is b est shown on coronal image 14 and axial image 25. PELVIC SOFT TISSUES: No masses or adenopathy. No free fluid. Colon diverticuli without CT signs of acute diverticulitis. No free fluid. FREE FLUID: None. PELVIC SKELETAL STRUCTURES: No abnormal marrow signal. No abnormal bone marrow enhancement. EXTRA PELVIS SOFT TISSUES: No masses. OTHER: No other significant finding. IMPRESSION: 3.5 x 3.4 cm mass at the bladder base. The urethra enters the bladder. This may be hyp ertrophied or malignant prostate tissue or a primary bladder mucosal lesion. TECHNICAL DOCUMENTATION: JOB ID: [id number] [employer]- All Rights Reserved Reading location - IP/workstation name: [facility]
--- NOTE | 2018-02-05 15:49 | RADIOLOGY REPORT (SQ) ---
EXAM DESCRIPTION: NM WHOLE BODY BONE SCAN COMPLETED DATE/TIME: 02/05/2018 3:31 pm REASON FOR STUDY: PROSTATE CA (C61 C61 MALIGNANT NEOPLASM OF PROSTATE COMPARISON: MRI of the pelvis 02/05/2018 PET-CT 02/04/2018 RADIONUCLIDE AND DOSE: 21 millicuries Tc99m MDP. The route of agent administration: Intravenous. ADDITIONAL DRUGS AND DOSES: None. TECHNIQUE: Routine delayed images at 3 hours post radionuclide injection acquired of the bony skelet on including anterior and posterior whole-body projections and additional focused images as needed. LIMITATIONS: None. FINDINGS: BONES: Normal visualization without areas of photopenia or increased bony uptake of radiop harmaceutical. KIDNEYS: Symmetric excretion without obstruction. OTHER: No other significant finding. IMPRESSION: NORMAL BONE SCAN. COMMENT: Quality measure 147: Current bone scan is compared with any available plain radiographs, p rior bone scans, and CT/MRI. TECHNICAL DOCUMENTATION: JOB ID: [id number] [employer]- All Rights Reserved Reading location - IP/workstation name: [facility]-[email or web address]
== END ==
LOC: RAD 10:58
PROVIDERS: ATTEND Internal Medicine Medical Oncology
DX: C61 Malignant neoplasm of prostate (principal)
CPT/HCPCS: 82565; 72197; 78306; A9576; A9561; Q9969

== ENCOUNTER 2018-03-05 15:02 | Emergency (ER) | payer MEDICARE, MEDICAID ==
[2018-03-05] MEDS ORDERED: DIPHENHYDRAMINE HCL 50 MG/ML VIAL IV ONE (15:17)
[2018-03-05] MEDS ORDERED: DIAZEPAM INJ 10 MG/2 ML DISP.SYRIN IV ONE (16:13)
--- NOTE | 2018-03-05 17:58 | ER Document Report ---
ED General - General Chief Complaint: Shortness Of Breath Stated Complaint: DIFFICULTY BREATHING,SPASM Time Seen by Provider: 03/05/18 15:17 Mode of Arrival: Ambulatory Information source: Patient Notes: 67-year-old male who after receiving injections to increase his white blood cell count per family has body spasms every time presents with complaints of generalized body spasms after having the injection earlier today. He denies any fevers or chills denies any nausea vomiting or diarrhea denies any other complaints, TRAVEL OUTSIDE OF THE [place] IN LAST 30 DAYS: No - HPI Onset: Just prior to arrival Onset/Duration: Sudden Quality of pain: Cramping Severity: Moderate Pain Level: 2 Associated symptoms: Body/muscle aches Exacerbated by: Movement Relieved by: Denies Similar symptoms previously: Yes Recently seen / treated by doctor: Yes - Related Data Allergies/Adverse Reactions: No Known Allergies Allergy (Verified 03/05/18 15:04) Past Medical History - Social History Smoking Status: Current Some Day Smoker Cigarette use (# per day): Yes Chew tobacco use (# tins/day): No Smoking Education Provided: No Frequency of alcohol use: None Drug Abuse: None Family History: Reviewed & Not Pertinent, Hypertension Patient has suicidal ideation: No Patient has homicidal ideation: No - Past Medical History Cardiac Medical History: Reports: Hx Hypercholesterolemia Denies: Hx Coronary Artery Disease, Hx Heart Attack, Hx Hypertension Pulmonary Medical History: Denies: Hx Asthma, Hx Bronchitis, Hx COPD, Hx Pneumonia Neurological Medical History: Denies: Hx Cerebrovascular Accident, Hx Seizures Renal/ Medical History: Reports: Hx Benign Prostatic Hyperplasia. Denies: Hx Peritoneal Dialysis Malignancy Medical History: Reports Hx Pancreatic Cancer, Reports Hx Prostate Cancer GI Medical History: Denies: Hx Hepatitis, Hx Hiatal Hernia, Hx Ulcer Musculoskeltal Medical History: Denies Hx Arthritis, Reports Hx Musculoskeletal Deformity, Reports Hx Musculoskeletal Trauma Psychiatric Medical History: Denies: Hx Depression Infectious Medical History: Denies: Hx Hepatitis Past Surgical History: Reports: Hx Genitourinary Surgery - TURP, Hx Orthopedic Surgery - Lt knee. Denies: Hx Open Heart Surgery, Hx Pacemaker - Immunizations Immunizations up to date: No Hx Diphtheria, Pertussis, Tetanus Vaccination: No Review of Systems - Review of Systems Notes: REVIEW OF SYSTEMS: CONSTITUTIONAL : Denies fever, chills, or sweats. Denies recent illness. EENT: Denies eye, ear, throat, or mouth pain or symptoms. Denies nasal or sinus congestion or discharge. Denies throat, tongue, or mouth swelling or difficulty swallowing. CARDIOVASCULAR: Denies chest pain. Denies palpitations or racing or irregular heart beat. Denies ankle edema. RESPIRATORY: Denies cough, cold, or chest congestion. Denies shortness of breath, difficulty breathing, or wheezing. GASTROINTESTINAL: Denies abdominal pain or distention. Denies nausea, vomiting , or diarrhea. Denies blood in vomitus, stools, or per rectum. Denies black, tarry stools. Denies constipation. GENITOURINARY: Denies difficulty urinating, painful urination, burning, frequency, blood in urine, or discharge. MUSCULOSKELETAL: Admits to generalized spasms SKIN: Denies rash, lesions or sores. HEMATOLOGIC : Denies easy bruising or bleeding. LYMPHATIC: Denies swollen, enlarged glands. NEUROLOGICAL: Denies confusion or altered mental status. Denies passing out or loss of consciousness. Denies dizziness or lightheadedness. Denies headache. Denies weakness or paralysis or loss of use of either side. Denies problems with gait or speech. Denies sensory loss, numbness, or tingling. Denies seizures. PSYCHIATRIC: Denies anxiety or stress. Denies depression, suicidal ideation, or homicidal ideation. ALL OTHER SYSTEMS REVIEWED AND NEGATIVE. Dictation was performed using [employer] voice recognition software PHYSICAL EXAMINATION: GENERAL: Well-appearing, well-nourished and in no acute distress. HEAD: Atraumatic, normocephalic. EYES: Pupils equal round and reactive to light, extraocular movements intact, sclera anicteric, conjunctiva are normal. ENT: Nares patent, oropharynx clear without exudates. Moist mucous membranes. NECK: Normal range of motion, supple without lymphadenopathy LUNGS: Breath sounds clear to auscultation bilaterally and equal. No wheezes rales or rhonchi. HEART: Regular rate and rhythm without murmurs ABDOMEN: Soft, nontender, nondistended abdomen. No guarding, no rebound. No masses appreciated. Musculoskeletal: Generalized body spasms are noted NEUROLOGICAL: Cranial nerves grossly intact. Normal speech, normal gait. Normal sensory, motor exams PSYCH: Normal mood, normal affect. SKIN: Warm, Dry, normal turgor, no rashes or lesions noted. Physical Exam - Vital signs Vitals: Temp Pulse Resp BP Pulse Ox 98.7 F 77 20 136/72 H 96 03/05/18 15:08 03/05/18 15:08 03/05/18 15:08 03/05/18 15:08 03/05/18 15:08 Course - Re-evaluation Re-evalutation: 03/05/18 20:27 Patient appears to be having a reaction to the medications, he was started on Benadryl, some improvement however he required Valium, with the Valium his symptoms resolved completely. Patient is therefore stable discharge he will be sent home with Valium I have very long conversation with the family After performing a Medical Screening Examination, I estimate there is LOW risk for RUPTURED ESOPHAGUS, PNEUMOTHORAX, PULMONARY EMBOLISM, ACUTE CORONARY SYNDROME, OR THORACIC AORTIC DISSECTION, thus I consider the discharge disposition reasonable. I have reevaluated this patient multiple times and no significant life threatening changes are noted. The patient and I have discussed the diagnosis and risks, and we agree with discharging home with close follow-up. We also discussed returning to the Emergency Department immediately if new or worsening symptoms occur. We have discussed the symptoms which are most concerning (e.g., bloody sputum, worsening pain or shortness of breath) that necessitate immediate return. - Vital Signs Vital signs: Temp Pulse Resp BP Pulse Ox 98.7 F 77 28 H 121/57 L 97 03/05/18 15:08 03/05/18 15:08 03/05/18 18:02 03/05/18 18:02 03/05/18 18:02 Discharge - Discharge Clinical Impression: Spasm Medication reaction Qualifiers: Encounter type: initial encounter Qualified Code(s): T88.7XXA - Unspecified adverse effect of drug or medicament, initial encounter Condition: Stable Disposition: HOME, SELF-CARE Additional Instructions: Only take the Valium as needed Prescriptions: Diazepam [Valium 5 mg Tablet] 5 mg PO QIDP PRN #30 tablet PRN Reason: Referrals: KENZIE DALTON MD [Primary Care Provider] - Follow up as needed
[2018-03-05 18:18] VITALS: BP 121/57
== END 2018-03-05 18:34 | disposition home or self-care (01) ==
LOC: ER 15:02
DX: R25.2 Cramp and spasm (principal); T50.905A Adverse effect of unspecified drugs, medicaments and biological substances, initial encounter; M79.1 Myalgia; F17.210 Nicotine dependence, cigarettes, uncomplicated; Z98.890 Other specified postprocedural states; Z85.07 Personal history of malignant neoplasm of pancreas; Z85.46 Personal history of malignant neoplasm of prostate
CPT/HCPCS: 99284; 96374; 96375; J3360; J1200

== ENCOUNTER → 2018-04-24 | Outpatient (CLI) | payer MEDICAID, MEDICARE ==
--- NOTE | 2018-04-28 07:33 | RADIOLOGY REPORT (SQ) ---
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 RENAL FUNCTION: GFR > 60. TECHNIQUE: MRI of the bony pelvis was performed without and with contrast to include coronal and axi al T1 precontrast, T1 fat-sat, T1 fat-sat postcontrast, fat-sat T2/stir images. FINDINGS: Bony pelvis is intact. No bone marrow signal abnormalities or enhancement worrisome for m etastatic disease over the pelvis or proximal femurs. Bilateral hip joints exhibit mild chondromalacia, and mild degenerative change at the acetabular labr um best shown on coronal image 15. SI joints are unremarkable. Lower lumbar facet arthropathy at L4 -5 and L5-S1. No adenopathy over the inguinal regions or along the pelvis. Patient is post prostatectomy and bilateral orchiectomy. At the junction of the bladder and prostate residua, an enhancing tumor is present to the right of midline at the urethral orifice, 3 x 2.7 cm i n size (was 3.5 x 3.4 cm in size on 02/05/2018). IMPRESSION: Decrease in size of tumor at the junction of the bladder and prostate residua compared t o 02/05/2018 No MR evidence of bony metastatic disease to the pelvis. No pelvic adenopathy or other masses TECHNICAL DOCUMENTATION: JOB ID: [id number] [employer]- All Rights Reserved Reading location - IP/workstation name: [email or web address]
== END ==
LOC: RAD 08:07
PROVIDERS: ATTEND Internal Medicine Medical Oncology
DX: C61 Malignant neoplasm of prostate (principal); C79.51 Secondary malignant neoplasm of bone
CPT/HCPCS: 82565; 72197; A9576

== ENCOUNTER → 2018-08-18 | Outpatient (CLI) | payer MEDICAID, MEDICARE ==
--- NOTE | 2018-08-18 15:49 | RADIOLOGY REPORT (SQ) ---
EXAM DESCRIPTION: MRI PELVIS COMBO COMPLETED DATE/TIME: 08/18/2018 1:04 pm REASON FOR STUDY: BONE METASTAIS, PROSTATE CA C79.51 SECONDARY MALIGNANT NEOPLASM OF BONE COMPARISON: 04/24/2018. 02/05/2018. Bone scan 02/05/2018. PET study 02/04/2018. TECHNIQUE: Multiplanar imaging of the pelvis to include T1-weighted, postcontrast T1-weighted, and T 2-weighted images. CONTRAST TYPE AND DOSE: 15 mL Dotarem. RENAL FUNCTION: GFR > 60. LIMITATIONS: None. FINDINGS: BONE MARROW: Normal. No developing bone lesions. No marrow edema or occult fracture. Fi eld of view includes the lumbar spine from the lower aspect of L2 as well as the entirety of the pelv is in the proximal femurs. SOFT TISSUES: Bladder generally looks unremarkable. Nodular tissue at the junction of the prostate b ed and bladder has probably not significantly changed. No overt pelvic adenopathy or fluid. OTHER: No other significant finding. IMPRESSION: 1. No developing bone lesions to suggest osseous metastatic disease. Grossly stable tis maria elena at the bladder base compared to most recent study. TECHNICAL DOCUMENTATION: JOB ID: [id number] [employer]- All Rights Reserved Reading location - IP/workstation name: [email or web address]
== END ==
LOC: RAD 11:52
PROVIDERS: ATTEND Internal Medicine Medical Oncology
DX: C79.51 Secondary malignant neoplasm of bone (principal); C61 Malignant neoplasm of prostate
CPT/HCPCS: 72197; A9576

== ENCOUNTER → 2018-08-19 | Outpatient (CLI) | payer MEDICARE ==
--- NOTE | 2018-08-19 13:22 | RADIOLOGY REPORT (SQ) ---
EXAM DESCRIPTION: NM WHOLE BODY BONE SCAN COMPLETED DATE/TIME: 08/19/2018 12:06 pm REASON FOR STUDY: PROSTATE CA (C61), SECONDARY BONE CA (C79.51) C61 MALIGNANT NEOPLASM OF PROSTATE C79.51 SECONDARY MALIGNANT NEOPLASM OF BONE COMPARISON: Bone scan 02/05/2018 11/23/2016 MRI thoracic spine 11/20/2017 RADIONUCLIDE AND DOSE: 20 millicuries Tc99m MDP. The route of agent administration: Intravenous. ADDITIONAL DRUGS AND DOSES: None. TECHNIQUE: Routine delayed images at 3 hours post radionuclide injection acquired of the bony skelet on including anterior and posterior whole-body projections and additional focused images as needed. LIMITATIONS: None. FINDINGS: BONES: Stable uptake in the upper thoracic spine where metastatic disease is noted on the MRI appear there are no new areas of abnormal uptake in the skeleton. KIDNEYS: Symmetric excretion without obstruction. OTHER: No other significant finding. IMPRESSION: There is stable uptake in the upper thoracic spine. No new findings. COMMENT: Quality measure 147: Current bone scan is compared with any available plain radiographs, p rior bone scans, and CT/MRI. TECHNICAL DOCUMENTATION: JOB ID: [id number] [email or web address]- All Rights Reserved Reading location - IP/workstation name: [email or web address]
== END ==
LOC: RAD 07:52
PROVIDERS: ATTEND Internal Medicine Medical Oncology
DX: C79.51 Secondary malignant neoplasm of bone (principal); C61 Malignant neoplasm of prostate
CPT/HCPCS: 78306; A9561; Q9969

== ENCOUNTER 2018-09-07 10:55 | Emergency (ER) | payer MEDICARE, MEDICAID ==
[2018-09-07 11:02] VITALS: BP 145/86
--- NOTE | 2018-09-07 11:59 | RADIOLOGY REPORT (SQ) ---
EXAM DESCRIPTION: FINGER LEFT COMPLETED DATE/TIME: 09/07/2018 11:32 am REASON FOR STUDY: Left thumb pain after recent injury COMPARISON: None. NUMBER OF VIEWS: Three views. TECHNIQUE: AP, lateral, and oblique images acquired of the left thumb. LIMITATIONS: None. FINDINGS: MINERALIZATION: Normal. BONES: No acute fracture or dislocation. No worrisome bone lesions. SOFT TISSUES: No soft tissue swelling. No foreign body. OTHER: No other significant finding. IMPRESSION: NO RADIOGRAPHIC EVIDENCE OF ACUTE INJURY. TECHNICAL DOCUMENTATION: JOB ID: [id number] [employer]- All Rights Reserved Reading location - IP/workstation name: [email or web address]
[2018-09-07] MEDS ORDERED: IBUPROFEN 600 MG TABLET PO ONE (12:25)
--- NOTE | 2018-09-07 12:28 | ER Document Report ---
HPI - HPI Pain Level: 4 Notes: Patient is a 67-year-old male with chief complaint of left thumb pain. Patient reports that yesterday he hit his thumb with a hammer. Patient reports he felt that the pain would get better however he reports a continuous throbbing pain. Patient denies any history of trauma to this area prior to yesterday. - EENT EENT: DENIES: Sore Throat - MUSCULOSKELETAL Musculoskeletal: REPORTS: Extremity pain - left thumb <YANCI RODRIGUEZ - Last Filed: 09/07/18 20:33> - ROS Notes: Unless otherwise stated in this report the patient's positive and negative responses for review of systems for constitutional, eyes, ENT, cardiovascular, respiratory, gastrointestinal, neurological, genitourinary, musculoskeletal, and integumentary systems and related systems to the presenting problem are either as stated in the HPI or were not pertinent or were negative for the symptoms and/or complaints related to the presenting medical problem. <GOSIA WU - Last Filed: 09/10/18 10:33> Past Medical History - General Information source: Patient - Social History Smoking Status: Current Some Day Smoker Chew tobacco use (# tins/day): No Frequency of alcohol use: None Drug Abuse: None Family History: Reviewed & Not Pertinent, Hypertension Patient has suicidal ideation: No Patient has homicidal ideation: No - Past Medical History Cardiac Medical History: Reports: Hx Hypercholesterolemia Denies: Hx Coronary Artery Disease, Hx Heart Attack, Hx Hypertension Pulmonary Medical History: Denies: Hx Asthma, Hx Bronchitis, Hx COPD, Hx Pneumonia Neurological Medical History: Denies: Hx Cerebrovascular Accident, Hx Seizures Renal/ Medical History: Reports: Hx Benign Prostatic Hyperplasia. Denies: Hx Peritoneal Dialysis Malignancy Medical History: Reports Hx Pancreatic Cancer, Reports Hx Prostate Cancer GI Medical History: Denies: Hx Hepatitis, Hx Hiatal Hernia, Hx Ulcer Musculoskeletal Medical History: Denies Hx Arthritis, Reports Hx Musculoskeletal Deformity, Reports Hx Musculoskeletal Trauma Psychiatric Medical History: Denies: Hx Depression Infectious Medical History: Denies: Hx Hepatitis Past Surgical History: Reports: Hx Genitourinary Surgery - TURP, Hx Orthopedic Surgery - Lt knee. Denies: Hx Open Heart Surgery, Hx Pacemaker - Immunizations Immunizations up to date: No Hx Diphtheria, Pertussis, Tetanus Vaccination: No <YANCI RODRIGUEZ - Last Filed: 09/07/18 20:33> Vertical Provider Document - CONSTITUTIONAL Notes: PHYSICAL EXAMINATION: GENERAL: Well-appearing, well-nourished and in no acute distress. HEAD: Atraumatic, normocephalic. EYES: Pupils equal round extraocular movements intact, conjunctiva are normal. ENT: Nares patent NECK: Normal range of motion LUNGS: No respiratory distress Musculoskeletal: Normal range of motion, tenderness to palpation to left thumb. Ecchymosis noted under left thumbnail. NEUROLOGICAL: Normal speech, normal gait. PSYCH: Normal mood, normal affect. SKIN: Warm, Dry, normal turgor, no rashes or lesions noted. - INFECTION CONTROL TRAVEL OUTSIDE OF THE [place] IN LAST 30 DAYS: No <YANCI RODRIGUEZ - Last Filed: 09/07/18 20:33> Course - Re-evaluation Re-evalutation: X-rays negative for any acute findings. Electrocautery was used to alleviate the pressure from the left thumb via trephination. Approximately 2-3 cc of blood was obtained. Patient does report significant reduction of his symptoms. Patient will be discharged home in stable condition at this time. - Vital Signs Vital signs: Temp Pulse Resp BP Pulse Ox 98.6 F 65 16 145/86 H 98 09/07/18 10:59 09/07/18 10:59 09/07/18 10:59 09/07/18 10:59 09/07/18 10:59 <YANCI RODRIGUEZ - Last Filed: 09/07/18 20:33> - Vital Signs Vital signs: Temp Pulse Resp BP Pulse Ox 98.6 F 65 16 145/86 H 98 09/07/18 10:59 09/07/18 10:59 09/07/18 10:59 09/07/18 10:59 09/07/18 10:59 <GOSIA WU - Last Filed: 09/10/18 10:33> Procedures - Additional Procedures Left thumb trephination Notes: 09/07/18 20:34 left thumb trephanaton after cleaning with alcohol <YANCI RODRIGUEZ - Last Filed: 09/07/18 20:33> Discharge <YANCI RODRIGUEZ - Last Filed: 09/07/18 20:33> <GOSIA WU - Last Filed: 09/10/18 10:33> - Discharge Clinical Impression: Finger injury Qualifiers: Encounter type: initial encounter Laterality: left Qualified Code(s): S69.92XA - Unspecified injury of left wrist, hand and finger(s), initial encounter Hematoma, subungual, finger Qualifiers: Encounter type: initial encounter Qualified Code(s): S60.10XA - Contusion of unspecified finger with damage to nail, initial encounter Condition: Stable Disposition: HOME, SELF-CARE Additional Instructions: Subungual Hematoma You have a collection of blood between the nail bed and nail, called a subungual hematoma. This injury is often very painful due to the pressure that builds up under the nail. The pressure is relieved by draining blood from beneath the nail, either by creating some small holes in it, or by the nail from the skin. This will usually stop the pain. Sometimes the nail must be removed completely to examine the nail bed for injury. You should elevate the injured digit as much as possible for the next two days. Usually the injured nail will separate from its bed over the next few weeks. A new nail will grow over the exposed nail bed. This may take two or three months. If swelling around the cuticle, redness, fever, or increasing pain occur, you should call the doctor immediately. The x-ray today of your finger was negative meaning there is no fracture or dislocation. We did drain the blood from beneath the nail which should help relieve the pain. It is very possible that you will lose the nail, this may fall off on its own and a new nail will replace it. At this time most of the nail appears to still be attached to there is no reason to remove it. You can still ice and elevate the extremity. Watch very closely for signs of infection to include redness, increased warmth or increasing pain around the finger or cuticle. Follow-up with your primary care provider for a follow-up in the next 3-5 days. Take ibuprofen 600 mg every 6 hours for pain. Referrals: KENZIE DALTON MD [Primary Care Provider] - Follow up as needed
== END 2018-09-07 12:34 | disposition home or self-care (01) ==
LOC: ER 10:55
DX: S60.112A Contusion of left thumb with damage to nail, initial encounter (principal); M79.645 Pain in left finger(s); W27.8XXA Contact with other nonpowered hand tool, initial encounter; F17.200 Nicotine dependence, unspecified, uncomplicated; Z85.46 Personal history of malignant neoplasm of prostate; Z85.07 Personal history of malignant neoplasm of pancreas
CPT/HCPCS: 99283; 73140; 11740; A9270

== ENCOUNTER → 2018-12-29 | Outpatient (CLI) | payer MEDICAID, MEDICARE ==
--- NOTE | 2018-12-29 16:19 | RADIOLOGY REPORT (SQ) ---
EXAM DESCRIPTION: MRI ABDOMEN COMBO COMPLETED DATE/TIME: 12/29/2018 12:56 pm REASON FOR STUDY: PROSTATE CA C61 MALIGNANT NEOPLASM OF PROSTATE COMPARISON: MRI pelvis 04/24/2018, 08/18/2018 Bone scan 02/05/2018, 08/19/2018 TECHNIQUE: Multiplanar multisequence imaging performed without and with contrast including sagittal, axial and coronal T2, axial T1, axial gradient fat sat T1, axial, sagittal and coronal fat sat T1 po st contrast. CONTRAST TYPE AND DOSE: 15 mL Dotarem. RENAL FUNCTION: GFR > 60. LIMITATIONS: None. FINDINGS: There is persistent enhancing tumor at the bladder base, encircling the proximal urethra. This is best shown on fat-sat T1 weighted images, on coronal image 13 the mass at the bladder base m easures 2.5 x 1.3 cm in size (was 3.2 x 1.6 cm on 02/05/2018, 2.8 x 1.3 cm on 08/18/2018). No pelvic adenopathy or free fluid. Remainder of the urinary bladder is unremarkable. Rectum unrema rkable. Bony structures and soft tissues over the pelvis are unremarkable. IMPRESSION: Slight decrease in size of the recurrent tumor at the bladder base compared to prior ralph dies. TECHNICAL DOCUMENTATION: JOB ID: [id number] [employer]- All Rights Reserved Reading location - IP/workstation name: [email or web address]
== END ==
LOC: RAD 11:49
PROVIDERS: ATTEND Internal Medicine Medical Oncology
DX: C61 Malignant neoplasm of prostate (principal)
CPT/HCPCS: 82565; 74183; A9576

== ENCOUNTER → 2018-12-30 | Outpatient (CLI) | payer MEDICARE ==
--- NOTE | 2018-12-30 10:12 | RADIOLOGY REPORT (SQ) ---
EXAM DESCRIPTION: CHEST 2 VIEWS COMPLETED DATE/TIME: 12/30/2018 10:03 am REASON FOR STUDY: R05 COUGH COMPARISON: 11/10/2016. EXAM PARAMETERS: NUMBER OF VIEWS: two views TECHNIQUE: Digital Frontal and Lateral radiographic views of the chest acquired. RADIATION DOSE: NA LIMITATIONS: none FINDINGS: LUNGS AND PLEURA: No opacities, masses or pneumothorax. No pleural effusion. MEDIASTINUM AND HILAR STRUCTURES: No masses or contour abnormalities. HEART AND VASCULAR STRUCTURES: Heart normal size. No evidence for failure. BONES: No acute findings. HARDWARE: Vascular port. OTHER: No other significant finding. IMPRESSION: NO ACUTE RADIOGRAPHIC FINDING IN THE CHEST. TECHNICAL DOCUMENTATION: JOB ID: [id number] [employer]- All Rights Reserved Reading location - IP/workstation name: [email or web address]
[2018-12-30 10:51] LABS: A TYPE INFLUENZA AG NEGATIVE (NEGATIVE); B INFLUENZA AG NEGATIVE (NEGATIVE)
== END ==
LOC: RAD 09:48
PROVIDERS: ATTEND Internal Medicine Geriatric Medicine
DX: R05 Cough (principal)
CPT/HCPCS: 71046; 87804

== ENCOUNTER 2019-04-28 15:24 | Observation (INO) | payer MEDICARE, MEDICAID ==
[2019-04-28] MEDS ORDERED: NORMAL SALINE 1000 ML 1,000 ML IV ONE (15:32)
--- NOTE | 2019-04-28 15:37 | ER Document Report ---
ED Medical Screen (RME) - General Stated Complaint: GENERAL WEAKNESS Time Seen by Provider: 04/28/19 15:31 Primary Care Provider: KENZIE DALTON MD [Primary Care Provider] - Follow up as needed TRAVEL OUTSIDE OF THE [place] IN LAST 30 DAYS: No - HPI Notes: 04/28/19 15:33 I was asked to do a brief exam out of pivot for this patient. Patient is a coming by family members complaining of generalized weakness and altered in his behavior that began prior to arrival. Family states that he was outside working in the yard and is not sure if he became overheated or not. Patient states that he just feels bad all over and weak. Family states that he was laying on his right side and does not want to ambulate. He does have prostate cancer and is on chemotherapy. He is not on dialysis. Denies CABRERA, feve r, neck pain, URI, CP, SOB, Abd pain, n/v/d, dysuria, back pain, or rash. I have treated and performed a rapid initial assessment of this patient. A comprehensive ED assessment and evaluation of the patient, analysis of test results and completion of medical decision making process will be conducted by additional ED providers. PHYSICAL EXAMINATION: GENERAL: appears weak and slumped to the right side and not wanting to hold his head up. A&Ox3. Answers questions appropriately. NEUROLOGICAL: slower to respond to questions, possible minimal slur in his speech but easily understandable. Strength 4+/5 b/l and equal (bilateral/general weakness noted). N/V intact. Cranial nerves grossly intact. NIH 1 for speech. PSYCH: flat affect - Related Data Allergies/Adverse Reactions: No Known Allergies Allergy (Verified 03/05/18 15:04) Past Medical History - Social History Family history: DM, Hyperlipidemia, Hypertension - Past Medical History Cardiac Medical History: Reports: Hx Hypercholesterolemia Denies: Hx Coronary Artery Disease, Hx Heart Attack, Hx Hypertension Pulmonary Medical History: Denies: Hx Asthma, Hx Bronchitis, Hx COPD, Hx Pneumonia Neurological Medical History: Denies: Hx Cerebrovascular Accident, Hx Seizures Renal/ Medical History: Reports: Hx Benign Prostatic Hyperplasia. Denies: Hx Peritoneal Dialysis Malignancy Medical History: Reports Hx Pancreatic Cancer, Reports Hx Prostate Cancer GI Medical History: Denies: Hx Hepatitis, Hx Hiatal Hernia, Hx Ulcer Musculoskeltal Medical History: Denies Hx Arthritis, Reports Hx Musculoskeletal Deformity, Reports Hx Musculoskeletal Trauma Psychiatric Medical History: Denies: Hx Depression Infectious Medical History: Denies: Hx Hepatitis Past Surgical History: Reports: Hx Genitourinary Surgery - TURP, Hx Orthopedic Surgery - Lt knee. Denies: Hx Open Heart Surgery, Hx Pacemaker - Immunizations Immunizations up to date: No Hx Diphtheria, Pertussis, Tetanus Vaccination: No History of Influenza Vaccine for 08/2017 - 01/2018 Season: No Physical Exam - Vital signs Vitals: Pulse Resp BP Pulse Ox 110 H 14 85/54 L 94 04/28/19 15:27 04/28/19 15:27 04/28/19 15:27 04/28/19 15:27 Course - Vital Signs Vital signs: Temp Pulse Resp BP Pulse Ox 110 H 14 85/54 L 94 04/28/19 15:27 04/28/19 15:27 04/28/19 15:27 04/28/19 15:27 Doctor's Discharge - Discharge Referrals: KENZIE DALTON MD [Primary Care Provider] - Follow up as needed
--- NOTE | 2019-04-28 15:49 | RADIOLOGY REPORT (SQ) ---
EXAM DESCRIPTION: CT HEAD WITHOUT COMPLETED DATE/TIME: 04/28/2019 3:41 pm REASON FOR STUDY: ZAINA proyr COMPARISON: 07/26/2017 TECHNIQUE: Axial images acquired through the brain without intravenous contrast. Images reviewed wi th bone, brain and subdural windows. Additional sagittal and coronal reconstructions were generated. Images stored on PACS. All CT scanners at this facility use dose modulation, iterative reconstruction, and/or weight based d osing when appropriate to reduce radiation dose to as low as reasonably achievable (ALARA). [facility]: Dose Right [facility]: CareDose [facility]: Dose Right [facility]: Teradose 4D [facility]: Hoonto RADIATION DOSE: CT Rad equipment meets quality standard of care and radiation dose reduction techniq ues were employed. CTDIvol: 53.2 mGy. DLP: 1097 mGy-cm. mGy. LIMITATIONS: None. FINDINGS: VENTRICLES: Prominent. CEREBRUM: No masses. No hemorrhage. No midline shift. Areas of low density in the white matter mos t likely due to chronic micro-vascular ischemic change. No evidence for acute infarction. CEREBELLUM: No masses. No hemorrhage. No alteration of density. No evidence for acute infarction. EXTRAAXIAL SPACES: Mild age-related involutional change. No fluid collections. No masses. ORBITS AND GLOBE: No intra- or extraconal masses. Normal contour of globe without masses. CALVARIUM: Old kelton hole in the left frontal lobe. PARANASAL SINUSES: No fluid or mucosal thickening. SOFT TISSUES: No mass or hematoma. OTHER: No other significant finding. IMPRESSION: MILD CHRONIC CHANGES OF ATROPHY AND MICROVASCULAR ISCHEMIA. NO ACUTE PROCESS. EVIDENCE OF ACUTE STROKE: NO. TECHNICAL DOCUMENTATION: JOB ID: [id number] Quality ID # [id number]: Final reports with documentation of one or more dose reduction techniques (e.g., Au tomated exposure control, adjustment of the mA and/or kV according to patient size, use of iterative reconstruction technique) 2010 [employer]- All Rights Reserved Reading location - IP/workstation name: [email or web address]
--- NOTE | 2019-04-28 15:53 | RADIOLOGY REPORT (SQ) ---
EXAM DESCRIPTION: CHEST SINGLE VIEW COMPLETED DATE/TIME: 04/28/2019 3:42 pm REASON FOR STUDY: weakness COMPARISON: 12/30/2018 EXAM PARAMETERS: NUMBER OF VIEWS: One view. TECHNIQUE: Single frontal radiographic view of the chest acquired. RADIATION DOSE: NA LIMITATIONS: None. FINDINGS: LUNGS AND PLEURA: No opacities, masses or pneumothorax. No pleural effusion. MEDIASTINUM AND HILAR STRUCTURES: No masses. Contour normal. HEART AND VASCULAR STRUCTURES: Heart normal in size. Normal vasculature. BONES: No acute findings. HARDWARE: Injection port on the right. OTHER: No other significant finding. IMPRESSION: NO ACUTE RADIOGRAPHIC FINDING IN THE CHEST. TECHNICAL DOCUMENTATION: JOB ID: [id number] [employer]- All Rights Reserved Reading location - IP/workstation name: [email or web address]
[2019-04-28 16:10] LABS: HEMATOCRIT 41.5 % (37.9-51.0); HEMOGLOBIN 13.7 g/dL (13.5-17.0); MEAN CORPUSCULAR VOLUME 88 fl (80-97); PLATELET COUNT 208 10^3/uL (150-450); RED BLOOD COUNT 4.71 10^6/uL (4.35-5.55); RED CELL DISTRIBUTION WIDTH 17.3 % (11.5-14.0); WHITE BLOOD COUNT 10.3 10^3/uL (4.0-10.5)
--- NOTE | 2019-04-28 16:16 | ER Document Report ---
ED General - General Chief Complaint: Heat Exposure Stated Complaint: GENERAL WEAKNESS Time Seen by Provider: 04/28/19 15:31 TRAVEL OUTSIDE OF THE [place] IN LAST 30 DAYS: No - HPI Notes: Patient is a 68-year-old male that presents to the emergency department for chief complaint of not feeling well. Patient is reportedly on chemotherapy for prostate cancer. His last chemotherapy treatment was last Saturday. He states today he was feeling pretty good and decided to go outside. He states he has been outside most of the day. Patient was mowing the lawn when he began to feel "not well". Family states they saw him sit down on the lawn and lay down on his side. He did not fall, lose consciousness, or hit his head. Patient was complaining that he felt nauseated and generally not well. He denied any palpitations, chest pain, shortness of breath, emesis, abdominal pain. He denies any recent illness and states he was feeling well prior to going outside. He denies recent fevers or chills. Patient denies any dysuria or urinary frequency. Currently he states he is feeling much better. Patient's states that it took him about 20 minutes to get to the emergency room. In route she had the air conditioning blasting, she had ice packs in patient's groin, axilla and neck. She states she also got him wet with a water bottle prior to putting him in the vehicle. Past Medical History: Prostate cancer Past Surgical History: Reviewed in chart Social History: Denies alcohol and tobacco use Family History: Reviewed and noncontributory for presenting illness Allergies: Reviewed, see documented allergy list. REVIEW OF SYSTEMS: CONSTITUTIONAL : No fever No chills diaphoresis No recent illness EENT: No vision changes No congestion No sore throat CARDIOVASCULAR: No chest pain No palpitations RESPIRATORY: No shortness of breath No cough No difficulty breathing GASTROINTESTINAL: No abdominal pain nausea No vomiting No diarrhea GENITOURINARY: No dysuria No hematuria No difficulty urinating MUSCULOSKELETAL: No back pain No leg pain No arm pain SKIN: No rashes No lesions LYMPHATIC: No swollen, enlarged glands. NEUROLOGICAL: No lightheadedness No headache No weakness No paresthesias PSYCHIATRIC: No anxiety No depression PHYSICAL EXAMINATION: Vital signs reviewed, nursing noted reviewed. GENERAL: Mildly diaphoretic, well-nourished and in no acute distress. HEAD: Atraumatic, normocephalic. EYES: Eyes appear normal, extraocular movements intact, sclera anicteric, conjunctiva are normal. ENT: nares patent, oropharynx clear without exudates. Moist mucous membranes. NECK: Normal range of motion, supple without lymphadenopathy LUNGS: Breath sounds clear to auscultation bilaterally and equal. No wheezes rales or rhonchi. HEART: Regular rate and rhythm without murmurs ABDOMEN: Soft, nontender, normoactive bowel sounds. No rebound, guarding, or rigidity. No masses appreciated. EXTREMITIES: Nontender, good range of motion, no pitting or edema. NEUROLOGICAL: No focal neurological deficits. Moves all extremities spontaneously Motor and sensory grossly intact on exam. PSYCH: Normal mood, normal affect. SKIN: Warm, mildly diaphoretic, normal turgor, no rashes or lesions noted on exposed skin - Related Data Allergies/Adverse Reactions: No Known Allergies Allergy (Verified 04/28/19 15:35) Past Medical History - Social History Smoking Status: Never Smoker Family History: Reviewed & Not Pertinent, Hypertension - Past Medical History Cardiac Medical History: Reports: Hx Hypercholesterolemia Denies: Hx Coronary Artery Disease, Hx Heart Attack, Hx Hypertension Pulmonary Medical History: Denies: Hx Asthma, Hx Bronchitis, Hx COPD, Hx Pneumonia Neurological Medical History: Denies: Hx Cerebrovascular Accident, Hx Seizures Renal/ Medical History: Reports: Hx Benign Prostatic Hyperplasia. Denies: Hx Peritoneal Dialysis Malignancy Medical History: Reports Hx Pancreatic Cancer, Reports Hx Prostate Cancer GI Medical History: Denies: Hx Hepatitis, Hx Hiatal Hernia, Hx Ulcer Musculoskeletal Medical History: Denies Hx Arthritis, Reports Hx Musculoskeletal Deformity, Reports Hx Musculoskeletal Trauma Psychiatric Medical History: Denies: Hx Depression Infectious Medical History: Denies: Hx Hepatitis Past Surgical History: Reports: Hx Genitourinary Surgery - TURP, Hx Orthopedic Surgery - Lt knee. Denies: Hx Open Heart Surgery, Hx Pacemaker - Immunizations Immunizations up to date: No Hx Diphtheria, Pertussis, Tetanus Vaccination: No Physical Exam - Vital signs Vitals: Pulse Resp BP Pulse Ox 110 H 14 85/54 L 94 04/28/19 15:27 04/28/19 15:27 04/28/19 15:27 04/28/19 15:27 Course - Re-evaluation Re-evalutation: 04/28/19 16:14 Vitals reviewed. Nursing notes reviewed. Patient was tachycardic and hypotensive at presentation. He was taken directly to CT scan from the waiting room and temperature was not initially obtained. Rectal temp was obtained about 30 minutes after presentation and was 99.1. I suspect it was likely higher at presentation. Patient's did appropriately treat his hyperthermia with axillary ice and by getting him wet with a water bottle and turning on the air conditioning in the car. As patient sits in the air conditioning his symptoms are improving. His blood pressure has increased and heart rate has decreased prior to even receiving fluids. Patient will be started on cold IV saline. He is on telemetry monitoring. Patient is alert and mentating appropriately with no focal neurologic deficits. 04/28/19 17:56 Patient's hypotension has resolved with IV rehydration. His lab work shows acute renal failure which is new for him. He has no severe lecture light derangement. Patient states he is feeling much better. He is mentating appropriately still with no focal deficits. His symptoms likely related to heat exhaustion and dehydration. He will be admitted to the hospital for his renal failure and for continued blood pressure monitoring. Patient's care discussed with Dr. Haney Laboratory 04/28/19 04/28/19 04/28/19 15:50 15:50 15:50 WBC 10.3 RBC 4.71 Hgb 13.7 Hct 41.5 MCV 88 MCH 29.0 MCHC 33.0 RDW 17.3 H Plt Count 208 Total Counted 100 Seg Neutrophils % Not Reportable Seg Neuts % (Manual) 85 H Lymphocytes % Not Reportable Lymphocytes % (Manual) 11 L Monocytes % Not Reportable Monocytes % (Manual) 4 Eosinophils % Not Reportable Eosinophils % (Manual) 0 Basophils % Not Reportable Basophils % (Manual) 0 Absolute Neutrophils Not Reportable Abs Neuts (Manual) 8.8 H Absolute Lymphocytes Not Reportable Abs Lymphs (Manual) 1.1 Absolute Monocytes Not Reportable Abs Monocytes (Manual) 0.4 Absolute Eosinophils Not Reportable Absolute Eos (Manual) 0.0 Absolute Basophils Not Reportable Abs Basophils (Manual) 0.0 Clumped Platelets PRESENT Platelet Comment ADEQUATE Poikilocytosis SLIGHT Anisocytosis 1+ Ovalocytes SLIGHT PT 12.7 INR 0.91 Sodium 143.1 Potassium 4.2 Chloride 106 Carbon Dioxide 25 Anion Gap 12 BUN 24 H Creatinine 1.70 H Est GFR ( Amer) 49 L Est GFR (Non-Af Amer) 40 L Glucose 186 H Calcium 10.0 Total Bilirubin 0.6 Direct Bilirubin 0.2 Neonat Total Bilirubin Not Reportable Neonat Direct Bilirubin Not Reportable Neonat Indirect Bili Not Reportable AST 20 ALT 21 Alkaline Phosphatase 95 Creatine Kinase 98 Troponin I Total Protein 7.4 Albumin 4.5 04/28/19 15:50 WBC RBC Hgb Hct MCV MCH MCHC RDW Plt Count Total Counted Seg Neutrophils % Seg Neuts % (Manual) Lymphocytes % Lymphocytes % (Manual) Monocytes % Monocytes % (Manual) Eosinophils % Eosinophils % (Manual) Basophils % Basophils % (Manual) Absolute Neutrophils Abs Neuts (Manual) Absolute Lymphocytes Abs Lymphs (Manual) Absolute Monocytes Abs Monocytes (Manual) Absolute Eosinophils Absolute Eos (Manual) Absolute Basophils Abs Basophils (Manual) Clumped Platelets Platelet Comment Poikilocytosis Anisocytosis Ovalocytes PT INR Sodium Potassium Chloride Carbon Dioxide Anion Gap BUN Creatinine Est GFR ( Amer) Est GFR (Non-Af Amer) Glucose Calcium Total Bilirubin Direct Bilirubin Neonat Total Bilirubin Neonat Direct Bilirubin Neonat Indirect Bili AST ALT Alkaline Phosphatase Creatine Kinase Troponin I < 0.012 Total Protein Albumin Chest X-Ray 04/28/19 15:31 IMPRESSION: NO ACUTE RADIOGRAPHIC FINDING IN THE CHEST. Head CT 04/28/19 15:31 IMPRESSION: MILD CHRONIC CHANGES OF ATROPHY AND MICROVASCULAR ISCHEMIA. NO ACUTE PROCESS. EVIDENCE OF ACUTE STROKE: NO. who accepts admission. - Vital Signs Vital signs: Temp Pulse Resp BP Pulse Ox 99.1 F 110 H 16 103/72 98 04/28/19 15:58 04/28/19 15:27 04/28/19 16:31 04/28/19 16:31 04/28/19 16:31 - Laboratory Result Diagrams: 04/28/19 15:50 04/28/19 15:50 Laboratory results interpreted by me: 04/28/19 04/28/19 15:50 15:50 RDW 17.3 H Seg Neuts % (Manual) 85 H Lymphocytes % (Manual) 11 L Abs Neuts (Manual) 8.8 H BUN 24 H Creatinine 1.70 H Est GFR ( Amer) 49 L Est GFR (Non-Af Amer) 40 L Glucose 186 H - EKG Interpretation by Me Additional EKG results interpreted by me: 04/28/19 16:15 Interpreted by myself 1551: Normal sinus rhythm, rate 98, normal axis, no ectopy, no STEMI Critical Care Note - Critical Care Note Total time excluding time spent on procedures (mins): 35 Comments: Critical care time 35 exclusive from separate billable procedures for a patient requiring complex medical decision making, and high potential for clinical deterioration. Time spent obtaining history from patient or surrogate, discussions with consultants, development of treatment plan with patient or surrogate, evaluation of patient's response to treatment, examination of patient, ordering and performing treatments and interventions, ordering and review of laboratory studies, re-evaluation of patient's condition, ordering and review of radiographic studies and review of old charts Discharge - Discharge Clinical Impression: Dehydration Heat exhaustion Qualifiers: Encounter type: initial encounter Qualified Code(s): T67.5XXA - Heat exhaustion, unspecified, initial encounter Condition: Stable Disposition: ADMITTED OBSERVATION Admitting Provider: [facility] Admitted: Medical Floor
[2019-04-28 16:18] LABS: INTERNATIONAL RATION (INR) 0.91; PROTHROMBIN TIME 12.7 SEC (11.4-15.4)
[2019-04-28 16:26] LABS: ALANINE AMINOTRANSFERASE 21 U/L (21-72); ALBUMIN 4.5 g/dL (3.5-5.0); ALKALINE PHOSPHATASE 95 U/L (38-126); ANION GAP 12 (5-19); ASPARTATE AMINO TRANSFERASE 20 U/L (17-59); BILIRUBIN,DIRECT 0.2 mg/dL (0.0-0.4); BILIRUBIN,TOTAL 0.6 mg/dL (0.2-1.3); BLOOD UREA NITROGEN 24 mg/dL (7-20); CARBON DIOXIDE 25 mmol/L (22-30); CHLORIDE 106 mmol/L (98-107); CREATINE KINASE 98 U/L (55-170); GLUCOSE 186 mg/dL (75-110); POTASSIUM 4.2 mmol/L (3.6-5.0); SODIUM 143.1 mmol/L (137-145); TOTAL PROTEIN 7.4 g/dL (6.3-8.2)
[2019-04-28 16:44] LABS: ABSOLUTE LYMPHOCYTES# (MANUAL) 1.1 10^3/uL (0.5-4.7); ABSOLUTE MONOCYTES # (MANUAL) 0.4 10^3/uL (0.1-1.4); ANISOCYTOSIS 1+; BASOPHILS % (MANUAL) 0 % (0-2); EOSINOPHILS % (MANUAL) 0 % (0-6); LYMPHOCYTES % (MANUAL) 11 % (13-45); MONOCYTES % (MANUAL) 4 % (3-13); OVALOCYTES SLIGHT; POIKILOCYTOSIS SLIGHT; SEGMENTED NEUTROPHILS % (MAN) 85 % (42-78); TOTAL CELLS COUNTED 100
[2019-04-28 16:45] LABS: PLATELET CLUMPS PRESENT; PLATELET COMMENT ADEQUATE
[2019-04-28 18:02] LABS: APPEARANCE,URINE SLIGHTLY-CLOUDY; BILIRUBIN,URINE NEGATIVE (NEGATIVE); COLOR,URINE YELLOW; GLUCOSE, URINE NEGATIVE (NEGATIVE); KETONES,URINE NEGATIVE (NEGATIVE); LEUKOCYTE ESTERASE,URINE NEGATIVE (NEGATIVE); NITRITE,URINE NEGATIVE (NEGATIVE); PROTEIN,URINE 100 mg/dL (NEGATIVE); URINE SPECIFIC GRAVITY 1.021; UROBILINOGEN,URINE NEGATIVE mg/dL (<2.0)
--- NOTE | 2019-04-28 19:03 | PDOC H&P ---
History of Present Illness Admission Date/PCP: 04/28/19 18:10 KENZIE DALTON Patient complains of: General weakness History of Present Illness: MARIAA ALCANTAR is a 68 year old male patient known to my practice who presented to the ED with assistance if family member due to worsening generalized weakness. Patient reported that he had chemotherapy for his prostate cancer a week ago at [facility]. He reported that he decided to work on his garden and mow his grass earlier today. He stated that he has been feeling somewhat unwell after his last chemotherapy session but at about 3 p.m today he felt worse and had to lay down. Family reported that he was very hot although patient reported that he did not feel hot at that time. He admitted to nausea but denied any associated vomiting or abdominal pain. He admitted to fair appetite and p.o intake. He denied any headache, dizziness or loss of consciousness. No chest pain, palpitation, or difficulty with breathing. He denied any dysuria, frequency, hematuria or flank pain. His sister reported that she managed him with cold water body wash, ice pack to his groin, neck, and axilla regions with exposure to air conditioner in the vehicle en route to the ED. His initial evaluation in the ED was significant for hypotension and prerenal azotemia. His morbidities include prostate cancer and hyperlipidemia. Past Medical History Cardiac Medical History: Reports: Hyperlipidema, Hypertension Denies: Coronary Artery Disease, Myocardial Infarction Pulmonary Medical History: Denies: Asthma, Bronchitis, Chronic Obstructive Pulmonary Disease (COPD), Pneumonia Neurological Medical History: Denies: Seizures Malignancy Medical History: Reports: Other - Prostate cancer GI Medical History: Denies: Hepatitis, Hiatal Hernia Musculoskeltal Medical History: Reports: Arthritis Psychiatric Medical History: Denies: Depression Hematology: Denies: Anemia, Sickle Cell Disease Past Surgical History Past Surgical History: Reports: Orthopedic Surgery - Lt knee Denies: Pacemaker Social History Smoking Status: Never Smoker Frequency of Alcohol Use: None Hx Recreational Drug Use: No Drugs: None Hx Prescription Drug Abuse: No Family History Family History: Reviewed & Not Pertinent, Hypertension Parental Family History Reviewed: Yes Children Family History Reviewed: Yes Sibling(s) Family History Reviewed.: Yes Medication/Allergy Allergies/Adverse Reactions: No Known Allergies Allergy (Verified 04/28/19 15:35) Review of Systems Constitutional: PRESENT: weakness. ABSENT: as per HPI, anorexia, chills, fatigue, fever(s), headache(s), night sweats, weight gain, weight loss, other Eyes: ABSENT: visual disturbances Ears: ABSENT: hearing changes Nose, Mouth, and Throat: ABSENT: as per HPI, headache(s), mouth pain, sore t hroat, vertigo, other Cardiovascular: ABSENT: chest pain, dyspnea on exertion, edema, orthropnea, palpitations Respiratory: ABSENT: cough, hemoptysis Gastrointestinal: PRESENT: nausea. ABSENT: as per HPI, abdominal pain, blo ating, coffee ground emesis, constipation, diarrhea, dysphagia, heartburn, hematemesis, hematochezia, melena, vomiting, other Genitourinary: ABSENT: dysuria, hematuria Musculoskeletal: ABSENT: joint swelling Integumentary: ABSENT: rash, wounds Neurological: ABSENT: abnormal gait, abnormal speech, confusion, dizziness, focal weakness, syncope Psychiatric: ABSENT: anxiety, depression, homidical ideation, suicidal ideation Endocrine: ABSENT: cold intolerance, heat intolerance, menstrual abnormalities, polydipsia, polyuria Hematologic/Lymphatic: ABSENT: easy bleeding, easy bruising, lymphadenopathy Allergic/Immunologic: ABSENT: seasonal rhinorrhea Physical Exam Vital Signs: Temp Pulse Resp BP Pulse Ox 99.1 F 110 H 16 103/72 98 04/28/19 15:58 04/28/19 15:27 04/28/19 16:31 04/28/19 16:31 04/28/19 16:31 Intake & Output 04/27/19 04/28/19 04/29/19 06:59 06:59 06:59 Weight 75.8 kg General appearance: PRESENT: no acute distress Head exam: PRESENT: atraumatic, normocephalic Eye exam: PRESENT: conjunctiva pink, EOMI, PERRLA. ABSENT: scleral icterus Ear exam: PRESENT: normal external ear exam Mouth exam: PRESENT: moist Neck exam: PRESENT: full ROM. ABSENT: carotid bruit, JVD, lymphadenopathy, thyromegaly Respiratory exam: PRESENT: clear to auscultation rebecca Cardiovascular exam: PRESENT: RRR. ABSENT: diastolic murmur, rubs, systolic murmur Pulses: PRESENT: normal dorsalis pedis pul, +2 pedal pulses bilateral Vascular exam: PRESENT: normal capillary refill. ABSENT: pallor GI/Abdominal exam: PRESENT: normal bowel sounds, soft. ABSENT: distended, guarding, mass, organolmegaly, rebound, tenderness Rectal exam: PRESENT: deferred Extremities exam: ABSENT: calf tenderness, joint swelling, tenderness Musculoskeletal exam: PRESENT: normal inspection. ABSENT: tenderness Neurological exam: PRESENT: alert, awake, oriented to person, oriented to place, oriented to time, oriented to situation, CN II-XII grossly intact. ABSENT: motor sensory deficit Psychiatric exam: PRESENT: appropriate affect, normal mood. ABSENT: homicidal ideation, suicidal ideation Skin exam: PRESENT: dry, warm Results Laboratory Results: 04/28/19 15:50 04/28/19 15:50 04/28/19 04/28/19 04/28/19 15:50 15:50 17:17 WBC 10.3 RBC 4.71 Hgb 13.7 Hct 41.5 MCV 88 MCH 29.0 MCHC 33.0 RDW 17.3 H Plt Count 208 Seg Neutrophils % Not Reportable Lymphocytes % Not Reportable Monocytes % Not Reportable Eosinophils % Not Reportable Basophils % Not Reportable Absolute Neutrophils Not Reportable Absolute Lymphocytes Not Reportable Absolute Monocytes Not Reportable Absolute Eosinophils Not Reportable Absolute Basophils Not Reportable Sodium 143.1 Potassium 4.2 Chloride 106 Carbon Dioxide 25 Anion Gap 12 BUN 24 H Creatinine 1.70 H Est GFR ( Amer) 49 L Est GFR (Non-Af Amer) 40 L Glucose 186 H Calcium 10.0 Total Bilirubin 0.6 AST 20 ALT 21 Alkaline Phosphatase 95 Total Protein 7.4 Albumin 4.5 Urine Color YELLOW Urine Appearance SLIGHTLY-CLOUDY Urine pH 6.0 Ur Specific [place] 1.021 Urine Protein 100 H Urine Glucose (UA) NEGATIVE Urine Ketones NEGATIVE Urine Blood MODERATE H Urine Nitrite NEGATIVE Ur Leukocyte Esterase NEGATIVE Urine WBC (Auto) 3 Urine RBC (Auto) 18 04/28/19 04/28/19 15:50 15:50 Creatine Kinase 98 Troponin I < 0.012 Impressions: Chest X-Ray 04/28/19 15:31 IMPRESSION: NO ACUTE RADIOGRAPHIC FINDING IN THE CHEST. Head CT 04/28/19 15:31 IMPRESSION: MILD CHRONIC CHANGES OF ATROPHY AND MICROVASCULAR ISCHEMIA. NO ACUTE PROCESS. EVIDENCE OF ACUTE STROKE: NO. Assessment & Plan - Diagnosis (1) Heat exhaustion Qualifiers: Encounter type: initial encounter Qualified Code(s): T67.5XXA - Heat exhaustion, unspecified, initial encounter Is this a current diagnosis for this admission?: Yes Plan: See admitting attending physician for details of care plan. (2) VADIM (acute kidney injury) Is this a current diagnosis for this admission?: Yes Plan: See admitting attending physician for details of care plan. (3) Hyperglycemia Is this a current diagnosis for this admission?: Yes Plan: See admitting attending physician for details of care plan. (4) Abnormal urine findings Is this a current diagnosis for this admission?: Yes Plan: See admitting attending physician for details of care plan. (5) Malignant neoplasm of prostate Is this a current diagnosis for this admission?: Yes Plan: See admitting attending physician for details of care plan. (6) HTN (hypertension) Qualifiers: Hypertension type: essential hypertension Qualified Code(s): I10 - Essential (primary) hypertension Is this a current diagnosis for this admission?: Yes Plan: See admitting attending physician for details of care plan. (7) HLD (hyperlipidemia) Qualifiers: Hyperlipidemia type: unspecified Qualified Code(s): E78.5 - Hyperlipidemia, unspecified Is this a current diagnosis for this admission?: Yes Plan: See admitting attending physician for details of care plan. (8) Osteoarthritis involving multiple joints on both sides of body Is this a current diagnosis for this admission?: Yes Plan: See admitting attending physician for details of care plan. - Time Time Spent: 50 to 70 Minutes Medications reviewed and adjusted accordingly: Yes Anticipated discharge: Home Within: within 24 hours - Inpatient Certification Based on my medical assessment, after consideration of the patient's stacey rbidities, presenting symptoms, or acuity I expect that the services needed warrant INPATIENT care.: No I certify that my determination is in accordance with my understanding of Medicare's requirements for reasonable and necessary INPATIENT services [42 CFR 412.3e].: No Medical Necessity: Need For IV Fluids Post Hospital Care: D/C Wound Specialist Documentation - Plan Summary Plan Summary: See admitting attending physician for details of care plan.
[2019-04-28] MEDS ORDERED: NORMAL SALINE 1000 ML 1,000 ML IV PRN (19:05)
[2019-04-28 20:02] LABS: VENOUS BLOOD BASE EXCESS -3.4 mmol/L; VENOUS BLOOD HCO3 21.6 mmol/L (20-32); VENOUS BLOOD PH 7.36 (7.30-7.42)
[2019-04-29] MEDS: FAMOTIDINE 20 MG TABLET PO SCH ×2 (03:33→10:48)
--- NOTE | 2019-04-29 07:59 | EKG REPORT ---
SEVERITY:- NORMAL ECG - SINUS RHYTHM : Confirmed by: Mavis Mandel MD 29-Apr-2019 07:58:33
[2019-04-29 08:16] LABS: ABSOLUTE BASOPHILS # (AUTO) 0.1 10^3/uL (0.0-0.2); ABSOLUTE LYMPHOCYTES (AUTO) 1.4 10^3/uL (0.5-4.7); ABSOLUTE MONOCYTES (AUTO) 0.3 10^3/uL (0.1-1.4); ABSOLUTE NEUT (AUTO) 3.1 10^3/uL (1.7-8.2); BASOPHILS % (AUTO) 1.2 % (0-2); EOSINOPHILS % (AUTO) 0.2 % (0-6); HEMATOCRIT 34.6 % (37.9-51.0); LYMPHOCYTES % (AUTO) 29.1 % (13-45); MEAN CORPUSCULAR HEMOGLOBIN 29.2 pg (27.0-33.4); MEAN CORPUSCULAR HGB CONC 33.2 g/dL (32.0-36.0); MEAN CORPUSCULAR VOLUME 88 fl (80-97); MONOCYTES % (AUTO) 5.4 % (3-13); PLATELET COUNT 163 10^3/uL (150-450); RED BLOOD COUNT 3.93 10^6/uL (4.35-5.55); RED CELL DISTRIBUTION WIDTH 16.8 % (11.5-14.0); SEGMENTED NEUTROPHILS % (AUTO) 64.1 % (42-78); TOTAL CELLS COUNTED % (AUTO) 100 %; WHITE BLOOD COUNT 4.9 10^3/uL (4.0-10.5)
[2019-04-29 08:18] LABS: HEMOGLOBIN 11.5 g/dL (13.5-17.0)
[2019-04-29 08:37] LABS: ALANINE AMINOTRANSFERASE 23 U/L (21-72); ALBUMIN 3.5 g/dL (3.5-5.0); ALKALINE PHOSPHATASE 76 U/L (38-126); ANION GAP 7 (5-19); ASPARTATE AMINO TRANSFERASE 17 U/L (17-59); BILIRUBIN,DIRECT 0.1 mg/dL (0.0-0.4); BILIRUBIN,TOTAL 0.6 mg/dL (0.2-1.3); BLOOD UREA NITROGEN 20 mg/dL (7-20); CALCIUM 8.7 mg/dL (8.4-10.2); CARBON DIOXIDE 24 mmol/L (22-30); CHLORIDE 109 mmol/L (98-107); GLUCOSE 112 mg/dL (75-110); POTASSIUM 4.2 mmol/L (3.6-5.0); SODIUM 140.1 mmol/L (137-145)
[2019-04-29] MEDS ORDERED: (PENDING PHARMACY ID) (Rosuvastatin Calcium [Crestor 20 Mg Tablet] 20 MG) PO SCH (10:00)
[2019-04-29] MEDS ORDERED: FLUTICASONE NASAL SPRAY 50 MCG/SPRY 120 SPRAY/16 GM NASL SCH (10:00)
[2019-04-29] MEDS ORDERED: PREDNISOLONE ACETATE OU SCH (10:00)
[2019-04-29] MEDS ORDERED: ENOXAPARIN SODIUM INJ 30 MG/0.3 ML DISP.SYRIN SUBCUT SCH (10:00)
[2019-04-29] MEDS ORDERED: TAMSULOSIN HCL 0.4 MG CAP.SR.24H PO SCH (10:00)
[2019-04-29] MEDS: PREDNISOLONE ACETATE 1% OPH SUSP 5 ML OU SCH ×2 (10:55→17:16)
[2019-04-29] MEDS ORDERED: GABAPENTIN 300 MG CAPSULE PO SCH (14:00)
--- NOTE | 2019-04-29 18:46 | PDOC DISCHARGE SUMMARY ---
General - Admit/Disc Date/PCP Admission Date/Primary Care Provider: 04/28/19 18:10 KENZIE KRYSTLE Discharge Date: 04/29/19 - Discharge Diagnosis (1) Heat exhaustion Is this a current diagnosis for this admission?: Yes (2) VADIM (acute kidney injury) Is this a current diagnosis for this admission?: Yes (3) Hyperglycemia Is this a current diagnosis for this admission?: Yes (4) Abnormal urine findings Is this a current diagnosis for this admission?: Yes (5) Malignant neoplasm of prostate Is this a current diagnosis for this admission?: Yes (6) HTN (hypertension) Is this a current diagnosis for this admission?: Yes (7) HLD (hyperlipidemia) Is this a current diagnosis for this admission?: Yes (8) Osteoarthritis involving multiple joints on both sides of body Is this a current diagnosis for this admission?: Yes - Additional Information Resuscitation Status: Full Code Home Medications: Fluticasone Propionate [Flonase Nasal [place] 50 Mcg/[place] 16 gm] 1 spray NASL DAILY 04/28/19 Gabapentin [Neurontin 300 mg Capsule] 300 mg PO Q8 04/28/19 Prednisolone Acetate/Pf [Prednisolone Acet 1% Eye Drop] 1 drop OU BID 04/28/19 Rosuvastatin Calcium [Crestor 20 mg Tablet] 20 mg PO DAILY 04/28/19 Tamsulosin HCl [Flomax 0.4 mg Cap.sr] 0.4 mg PO DAILY 04/28/19 History of Present Illness Patient complains of: Generalized weakness History of Present Illness: MARIAA ALCANTAR is a 68 year old male patient known to my practice who presented to the ED with assistance if family member due to worsening generalized weakness. Patient reported that he had chemotherapy for his prostate cancer a week ago at [facility]. He reported that he decided to work on his garden and mow his grass earlier today. He stated that he has been feeling somewhat unwell after his last chemotherapy session but at about 3 p.m today he felt worse and had to lay down. Family reported that he was very hot although patient reported that he did not feel hot at that time. He admitted to nausea b ut denied any associated vomiting or abdominal pain. He admitted to fair appetite and p.o intake. He denied any headache, dizziness or loss of consciousness. No chest pain, palpitation, or difficulty with breathing. He denied any dysuria, frequency, hematuria or flank pain. His sister reported that she managed him with cold water body wash, ice pack to his groin, neck, and axilla regions with exposure to air conditioner in the vehicle en route to the ED. His initial evaluation in the ED was significant for hypotension and dehydration. His morbidities include prostate cancer and hyperlipidemia. Hospital Course Hospital Course: Patient responded to IV fluid hydration. His symptoms did resolved with improvement of his renal function and hyperglycemia. He will be discharge home today and follow up in the office as instructed upon discharge. Physical Exam Vital Signs: Temp Pulse Resp BP Pulse Ox 97.6 F 65 17 111/65 100 04/29/19 12:25 04/29/19 12:25 04/29/19 12:25 04/29/19 12:25 04/29/19 12:25 Intake & Output 04/28/19 04/29/19 04/30/19 06:59 06:59 06:59 Intake Total 0 Output Total 450 Balance -450 Weight 77.3 kg General appearance: PRESENT: no acute distress, well-developed, well-nourished Head exam: PRESENT: atraumatic, normocephalic Eye exam: PRESENT: conjunctiva pink. ABSENT: scleral icterus Ear exam: PRESENT: normal external ear exam Mouth exam: PRESENT: moist Respiratory exam: PRESENT: clear to auscultation rebecca Cardiovascular exam: PRESENT: RRR. ABSENT: diastolic murmur, rubs, systolic murmur GI/Abdominal exam: PRESENT: normal bowel sounds, soft. ABSENT: distended, guarding, mass, organolmegaly, rebound, tenderness Extremities exam: ABSENT: pedal edema Neurological exam: PRESENT: alert, awake, oriented to person, oriented to place, oriented to time, oriented to situation, CN II-XII grossly intact. ABSENT: motor sensory deficit Psychiatric exam: PRESENT: appropriate affect, normal mood. ABSENT: homicidal ideation, suicidal ideation Results Laboratory Results: 04/29/19 07:00 04/29/19 07:40 04/28/19 04/29/19 04/29/19 19:30 01:06 07:00 WBC 4.9 RBC 3.93 L Hgb 11.5 L D Hct 34.6 L MCV 88 MCH 29.2 MCHC 33.2 RDW 16.8 H Plt Count 163 Seg Neutrophils % 64.1 Lymphocytes % 29.1 Monocytes % 5.4 Eosinophils % 0.2 Basophils % 1.2 Absolute Neutrophils 3.1 Absolute Lymphocytes 1.4 Absolute Monocytes 0.3 Absolute Eosinophils 0.0 Absolute Basophils 0.1 VBG pH 7.36 VBG pCO2 39.0 VBG HCO3 21.6 VBG Base Excess -3.4 Sodium Potassium Chloride Carbon Dioxide Anion Gap BUN Creatinine Est GFR ( Amer) Est GFR (Non-Af Amer) Glucose Lactic Acid 1.6 Calcium Total Bilirubin AST ALT Alkaline Phosphatase Total Protein Albumin 04/29/19 07:40 WBC RBC Hgb Hct MCV MCH MCHC RDW Plt Count Seg Neutrophils % Lymphocytes % Monocytes % Eosinophils % Basophils % Absolute Neutrophils Absolute Lymphocytes Absolute Monocytes Absolute Eosinophils Absolute Basophils VBG pH VBG pCO2 VBG HCO3 VBG Base Excess Sodium 140.1 Potassium 4.2 Chloride 109 H Carbon Dioxide 24 Anion Gap 7 BUN 20 Creatinine 0.81 Est GFR ( Amer) > 60 Est GFR (Non-Af Amer) > 60 Glucose 112 H Lactic Acid Calcium 8.7 Total Bilirubin 0.6 AST 17 ALT 23 Alkaline Phosphatase 76 Total Protein 6.0 L Albumin 3.5 04/28/19 04/28/19 15:50 15:50 Creatine Kinase 98 Troponin I < 0.012 Impressions: Chest X-Ray 04/28/19 15:31 IMPRESSION: NO ACUTE RADIOGRAPHIC FINDING IN THE CHEST. Head CT 04/28/19 15:31 IMPRESSION: MILD CHRONIC CHANGES OF ATROPHY AND MICROVASCULAR ISCHEMIA. NO ACUTE PROCESS. EVIDENCE OF ACUTE STROKE: NO. Qualifiers - * PATIENT BEING DISCHARGED WITH ANY OF THE FOLLOWING DIAGNOSIS: No Acute Heart Failure - Is this a Heart Failure Patient?: No Plan Discharge Plan: D/C home today. Follow up in the office as instructed upon discharge.
[2019-04-29 19:18] VITALS: BP 122/57
[2019-04-29] MEDS ORDERED: ATORVASTATIN CALCIUM 40 MG TABLET PO SCH (22:00)
== END 2019-04-29 19:35 | disposition home or self-care (01) ==
LOC: ER 15:24 → EH 18:10 → 4N 23:40
PROVIDERS: ADMIT Internal Medicine Geriatric Medicine; ATTEND Internal Medicine Geriatric Medicine
DX: T67.5XXA Heat exhaustion, unspecified, initial encounter (principal); N17.9 Acute kidney failure, unspecified; R73.9 Hyperglycemia, unspecified; C61 Malignant neoplasm of prostate; R53.1 Weakness; E78.5 Hyperlipidemia, unspecified; I10 Essential (primary) hypertension; M19.90 Unspecified osteoarthritis, unspecified site
CPT/HCPCS: 36415; 70450; 71045; 80053; 81001; 82550; 82803; 83605; 84484; 85025; 85610; 87040; 87086; 93005; 93010; 99291; G0378; J1650; J3490; J7030

== ENCOUNTER 2019-05-04 06:14 | Day surgery (SDC) | payer MEDICARE, MEDICAID ==
[~2019-05-04 06:14] MED LIST: 1/2 NORMAL SALINE 1,000 ML IV PRN; DIAZEPAM 5 MG TABLET PO PRN; OXYCODONE-ACETAMINOPHEN 5-325 MG TABLET PO PRN
[2019-05-04] MEDS ORDERED: DIAZEPAM 5 MG TABLET ONE (06:47)
[2019-05-04] MEDS ORDERED: OXYCODONE-ACETAMINOPHEN 5-325 MG TABLET ONE (06:47)
[2019-05-04 06:49] LABS: HEMATOCRIT 36.4 % (37.9-51.0); MEAN CORPUSCULAR VOLUME 88 fl (80-97); PLATELET COUNT 247 10^3/uL (150-450); RED BLOOD COUNT 4.16 10^6/uL (4.35-5.55); RED CELL DISTRIBUTION WIDTH 16.9 % (11.5-14.0)
[2019-05-04 06:59] LABS: ANION GAP 9 (5-19); BLOOD UREA NITROGEN 14 mg/dL (7-20); CALCIUM 9.6 mg/dL (8.4-10.2); CARBON DIOXIDE 27 mmol/L (22-30); CHLORIDE 108 mmol/L (98-107); GLUCOSE 132 mg/dL (75-110); POTASSIUM 4.5 mmol/L (3.6-5.0); SODIUM 143.7 mmol/L (137-145)
[2019-05-04] MEDS ORDERED: LIDOCAINE 0.5% INJ-PF (5 MG/ML) 50 ML SDV ONE ×2 (07:15→09:27)
[2019-05-04] MEDS ORDERED: BACITRACIN INJ 50,000 UNIT VIAL ONE (07:16)
--- NOTE | 2019-05-04 07:19 | RADIOLOGY REPORT (SQ) ---
EXAM DESCRIPTION: XR CHEST 1 VIEW COMPLETED DATE/TME: 05/04/2019 06:20 CLINICAL HISTORY: 68 years Male, pre op COMPARISON: 04/28/19 NUMBER OF VIEWS/TECHNIQUE: 1/AP FINDINGS: Clear lungs of adequate volume, and normal cardiac silhouette.Adequate appearing right jugular central line. No pneumothorax. Stable bony thorax. IMPRESSION: No significant change.
[2019-05-04] MEDS ORDERED: CEFAZOLIN 1 GM/D5W RTU 1 GM/50 ML RTUPB IV ONE (07:34)
[2019-05-04] MEDS ORDERED: MIDAZOLAM 2 MG/2 ML INJ ONE (07:39)
[2019-05-04] MEDS ORDERED: FENTANYL CITRATE INJ/PF 100 MCG/2 ML AMPUL ONE (07:39)
--- NOTE | 2019-05-04 10:26 | Discharge Summary ---
Discharge Summary (SDC) - Discharge Final Diagnosis: #1 prostate cancer. 2. Diabetes mellitus. 3. Hypertension. Date of Surgery: 05/04/19 Discharge Date: 05/04/19 Condition: Fair Treatment or Instructions: Discharge home [after recovery per ASU criteria]. Diet , [renal],as tolerated, when fully awake advance as tolerated. Activities within moderation encouraged. Follow up in my office by appointment in about [1 week]. Call for appointment. Leave wounds [covered], [keep clean and dry, until office visit in 1 week]. Hold of on school/work [until evaluation in office]. Meds per med rec. Percocet. May shower [in 48 hrs], [try to keep operated area as dry as possible]. Prescriptions: Oxycodone HCl/Acetaminophen [Percocet 5-325 mg Tablet] 1 tab PO ASDIR PRN #15 tab PRN Reason: Referrals: KENZIE DALTON MD [Primary Care Provider] - Discharge Diet: Other (Comments) - Diabetic. Respiratory Treatments at Home: Deep Breathing/Coughing Discharge Activity: Activity As Tolerated Report the Following to Your Physician Immediately: Shortness of Breath, Unusual Bleeding
--- NOTE | 2019-05-04 10:29 | Operative Report ---
Operative Report DATE OF SURGERY: 05/04/19 PREOPERATIVE DIAGNOSIS: #1 prostate cancer. 2. Diabetes mellitus. 3. Hypert ension. POSTOPERATIVE DIAGNOSIS: #1 prostate cancer. 2. Diabetes mellitus. 3. Hypertension. OPERATION: 1. Ultrasound evaluation of the left internal jugular vein. 2. Insertion of Port-A-Cath via real-time access in the in the left internal jugular vein. 3. Angiogram and interpretation. 4. Removal of old damaris cath on the right. SURGEON: BALDEV MARTINEZ [employer] BONDER: None. ANESTHESIA: Moderate Sedation TISSUE REMOVED OR ALTERED: Not applicable. COMPLICATIONS: None. ESTIMATED BLOOD LOSS: 5 mL. INTRAOPERATIVE FINDINGS: Of a satisfactory left internal jugular vein. Adequate to support the Port-A-Cath. The tip of the port placed down in the right atrial pool. Easy egress of blood and ingress of heparinized solution. Angiogram demonstrates trace smooth flow of contrast through the catheter and the right atrium. The old Port-A-Cath was removed uneventfully. PROCEDURE: After obtaining informed consent, the patient was taken to the [facility] and positioned supine. The left and [right] neck and chest were prepared with chlorhexidine and draped out with sterile linen. After the " universal timeout", in which it was verified that the patient continued to receive antibiotic, the procedure commenced. A steriley sheathed ultrasound probe was used to evaluate the left internal jugular vein. Local anesthesia was infiltr ated adjacent to the probe. Access into the [right] internal jugular vein was obtained using a micropuncture needle, followed by micropuncture wire and then a micropuncture catheter. This was followed by introduction of a 0.035 guidewire the tip of which was placed down into the inferior vena cava . The port sites was marked , locally anesthetized and incision made. Dissection now proceeded to the deep subcutaneous subcutaneous tissues so that a pocket for the port was made. Meticulous hemostasis was secured and the catheter was tunneled between the 2 incisions. Proximally, the catheter was now positioned using a peel-away sheath. Distally the catheter was tailored to an appropriate length and then mated to the port using the contained fixating device. The port was now placed in the pocket and the catheter optimally positioned. The port was accessed with a Ng needle and an angiogram done under digital subtraction. The findings as dictated. With adequate and satisfactory positioning, the lumen of the chamber were irrigated with heparinized solution. The wounds were now closed using interrupted 3-0 PDS to the subcutaneous tissues and a continuous subcuticular suture of 4-0 Monocryl to the skin. These are reinforced with Steri-Strips over benzoin and then dressings applied. Attention now turned to the right side. Local anesthesia infiltrated. Incision made an old scar. Dissection proceeded bluntly down to the catheter which was dissected free. It was removed in its entirety. The port was now dissected free and removed in its entirety. Wound was closed using interrupted 3-0 PDS sutures. Dressings applied procedure concluded. Copies of the dictated operative report for Dr. Baldev León MD.
[2019-05-04 11:48] VITALS: BP 152/71
--- NOTE | 2019-05-04 13:35 | RADIOLOGY REPORT (SQ) ---
EXAM DESCRIPTION: PORTACATH INSERTION; REMOVAL OF TUNNELED PORT COMPLETED DATE/TIME: 05/04/2019 12:27 pm REASON FOR STUDY: PROSTATE CA; REMOVAL OF TUNNELED LINE C61 MALIGNANT NEOPLASM OF PROSTATE Z79.01 HALFWAY (CURRENT) USE OF ANTICOAGULANTS COMPARISON: None. FLUOROSCOPY TIME: 2.0 minutes 28 images saved to PACS. TECHNIQUE: Intra-operative images acquired during surgical procedure to evaluate progress. NUMBER OF IMAGES: 28 LIMITATIONS: None. FINDINGS: Fluoroscopic images from left-sided port placement. Tip overlies SVC. IMPRESSION: IMAGE(S) OBTAINED DURING PROCEDURE. COMMENT: Quality ID 145: Final reports for procedures using fluoroscopy that document radiation exp osure indices, or exposure time and number of fluorographic images (if radiation exposure indices are not available) Please consult full operative report of the attending physician for description of the procedure. TECHNICAL DOCUMENTATION: JOB ID: [id number] [employer]- All Rights Reserved Reading location - IP/workstation name: [email or web address]
--- NOTE | 2019-05-04 13:35 | RADIOLOGY REPORT (SQ) ---
EXAM DESCRIPTION: PORTACATH INSERTION; REMOVAL OF TUNNELED PORT COMPLETED DATE/TIME: 05/04/2019 12:27 pm REASON FOR STUDY: PROSTATE CA; REMOVAL OF TUNNELED LINE C61 MALIGNANT NEOPLASM OF PROSTATE Z79.01 SNF (CURRENT) USE OF ANTICOAGULANTS COMPARISON: None. FLUOROSCOPY TIME: 2.0 minutes 28 images saved to PACS. TECHNIQUE: Intra-operative images acquired during surgical procedure to evaluate progress. NUMBER OF IMAGES: 28 LIMITATIONS: None. FINDINGS: Fluoroscopic images from left-sided port placement. Tip overlies SVC. IMPRESSION: IMAGE(S) OBTAINED DURING PROCEDURE. COMMENT: Quality ID 145: Final reports for procedures using fluoroscopy that document radiation exp osure indices, or exposure time and number of fluorographic images (if radiation exposure indices are not available) Please consult full operative report of the attending physician for description of the procedure. TECHNICAL DOCUMENTATION: JOB ID: [id number] [employer]- All Rights Reserved Reading location - IP/workstation name: [email or web address]
== END 2019-05-04 11:30 | disposition home or self-care (01) ==
LOC: CCL 06:14
PROVIDERS: ATTEND Surgery
DX: C61 Malignant neoplasm of prostate (principal); Z79.01 Long term (current) use of anticoagulants; E11.9 Type 2 diabetes mellitus without complications; I10 Essential (primary) hypertension; E78.00 Pure hypercholesterolemia, unspecified; F17.210 Nicotine dependence, cigarettes, uncomplicated; Z79.899 Other long term (current) drug therapy; Z01.818 Encounter for other preprocedural examination
CPT/HCPCS: 36415; 85027; 80048; 36590; 36561; 76937; 77001; 71045; C1752; C1788; C1769 ×2; J2250; J3490 ×2; J0690; A9270 ×2; J3010; J1644

== ENCOUNTER → 2019-06-07 | Outpatient (CLI) | payer MEDICAID, MEDICARE ==
--- NOTE | 2019-06-08 10:54 | RADIOLOGY REPORT (SQ) ---
EXAM DESCRIPTION: PET CT SKULL/THIGH COMPLETED DATE/TIME: 06/07/2019 10:18 pm REASON FOR STUDY: (C61)MALIGNANT NEOPLASM OF PROSTATE C61 MALIGNANT NEOPLASM OF PROSTATE COMPARISON: 02/04/2018. RADIONUCLIDE AND DOSE: 10 mCi F18 FDG The route of agent administration: Intravenous FASTING BLOOD SUGAR: 116 mg/dl CONTRAST TYPE AND DOSE: No CT contrast given. TECHNIQUE: Blood glucose level was verified. Above dose of FDG was injected intravenously. 2-D seg mented attenuation correction images were obtained from the base of the skull to the midthighs. Nonc ontrast CT images were obtained for attenuation correction and fusion with emission images. CT image s were performed without oral or intravenous contrast and are not sensitive for parenchymal lesions. A series of overlapping emission PET images were obtained. Images reviewed and manipulated at [facility] work station by the radiologist. Images stored on PACS. LIMITATIONS: None. FINDINGS: HEAD AND NECK: No areas of abnormal metabolic activity in the soft tissues of the head and neck. CHEST: 1.1 cm right paratracheal lymph node (axial series 3, image 82), mean SUV 2.98. 9 mm right hi lar lymph node (axial series 3, image 89), mean SUV 3.17. 1.2 cm right infrahilar lymph node (axial series 3, image 94), mean SUV 3.2. 5 mm left hilar lymph node (axial series 3, image 94), mean SUV 2 .86. ABDOMEN AND PELVIS: No areas of abnormal metabolic activity in the abdomen or pelvis. Expected physi ologic activity is present in the genitourinary system and bowel. PROXIMAL LOWER EXTREMITIES: No areas of abnormal metabolic activity in the soft tissues of the lower extremities. BONES: Several sclerotic lesions in the upper thoracic vertebrae. T1 lesion, mean SUV 2.64. T2 lesi on, mean SUV 2.43. T3 lesion, mean SUV 3.97. T4 lesion, mean SUV 3.71. ADDITIONAL CT FINDINGS: No additional significant findings on the noncontrast CT images. OTHER: Background blood pool activity mean SUV 1.85. Background liver activity mean SUV 2.23. No ot her significant findings. IMPRESSION: 1. SMALL MEDIASTINAL AND HILAR LYMPH NODES WITH ACTIVITY DESCRIBED, CONCERNING FOR EARLY METASTASE S. 2. SCLEROTIC LESIONS IN THE UPPER THORACIC VERTEBRAE WHICH ARE HYPERMETABOLIC, CONSISTENT WITH METAST ASES. THESE LESIONS HAVE PROGRESSED SINCE THE PRIOR PET SCAN. 3. NO OTHER SIGNIFICANT FINDINGS. NO EVIDENCE OF ACTIVITY ELSEWHERE. TECHNICAL DOCUMENTATION: JOB ID: [id number] [employer]- All Rights Reserved Reading location - IP/workstation name: [email or web address]
== END ==
LOC: RAD 16:38
PROVIDERS: ATTEND Internal Medicine Medical Oncology
DX: C61 Malignant neoplasm of prostate (principal)
CPT/HCPCS: 78815; A9552

== ENCOUNTER 2019-06-13 18:30 | Emergency (ER) | payer MEDICARE ==
[2019-06-13] MEDS ORDERED: ONDANSETRON 4 MG TAB.RAPDIS PO ONE (19:08)
--- NOTE | 2019-06-13 19:10 | ER Document Report ---
ED Medical Screen (RME) - General Chief Complaint: General Weakness Stated Complaint: NAUSEA/WEAKNESS Time Seen by Provider: 06/13/19 19:02 Primary Care Provider: MARISSA CASTELLANO MD [Primary Care Provider] - Follow up as needed Mode of Arrival: Wheelchair Information source: Patient, Relative Notes: This 68-year-old male presents to the emergency department with complaints of weakness and nausea for 1 week. He reports decreased appetite decreased p.o. intake. Patient does have a history of prostate cancer. He is on chemo, last chemo was 1 month ago. He denies fever vomiting diarrhea. Reports he recently had his port removed from the right side of his chest to the left side due to an infection. Patient reports he is just been laying in bed all week. I have greeted and performed a rapid initial assessment of this patient. A comprehensive ED assessment and evaluation of the patient, analysis of test results and completion of the medical decision making process will be conducted by additional ED providers. Dictation of this chart was performed using voice recognition software; therefore, there may be some unintended grammatical errors. TRAVEL OUTSIDE OF THE [place] IN LAST 30 DAYS: No - Related Data Allergies/Adverse Reactions: No Known Allergies Allergy (Verified 06/13/19 18:36) Past Medical History - Social History Chew tobacco use (# tins/day): No Frequency of alcohol use: None Drug Abuse: None Family history: DM, Hyperlipidemia, Hypertension - Past Medical History Cardiac Medical History: Reports: Hx Hypercholesterolemia, Hx Hypertension Denies: Hx Coronary Artery Disease, Hx Heart Attack Pulmonary Medical History: Reports: Hx Pneumonia - "years ago" Denies: Hx Asthma, Hx Bronchitis, Hx COPD Neurological Medical History: Denies: Hx Cerebrovascular Accident, Hx Seizures Renal/ Medical History: Reports: Hx Benign Prostatic Hyperplasia. Denies: Hx Peritoneal Dialysis Malignancy Medical History: Reports Hx Pancreatic Cancer, Reports Hx Prostate Cancer GI Medical History: Denies: Hx Hepatitis, Hx Hiatal Hernia, Hx Ulcer Musculoskeltal Medical History: Reports Hx Arthritis - Shoulder, Reports Hx Musculoskeletal Deformity, Reports Hx Musculoskeletal Trauma Psychiatric Medical History: Denies: Hx Depression Infectious Medical History: Denies: Hx Hepatitis Past Surgical History: Reports: Hx Genitourinary Surgery - TURP, Hx Orthopedic Surgery - Lt knee. Denies: Hx Open Heart Surgery, Hx Pacemaker - Immunizations Immunizations up to date: No Hx Diphtheria, Pertussis, Tetanus Vaccination: No History of Influenza Vaccine for 08/2017 - 01/2018 Season: No Physical Exam - Vital signs Vitals: Temp Pulse Resp BP Pulse Ox 98.0 F 101 H 18 107/65 97 06/13/19 18:43 06/13/19 18:43 06/13/19 18:43 06/13/19 18:43 06/13/19 18:43 Course - Vital Signs Vital signs: Temp Pulse Resp BP Pulse Ox 98.0 F 101 H 18 107/65 97 06/13/19 18:43 06/13/19 18:43 06/13/19 18:43 06/13/19 18:43 06/13/19 18:43 Doctor's Discharge - Discharge Referrals: MARISSA CASTELLANO MD [Primary Care Provider] - Follow up as needed
[2019-06-13] MEDS ORDERED: NORMAL SALINE 1000 ML 1,000 ML IV ONE ×2 (20:26→22:32)
--- NOTE | 2019-06-13 20:26 | ER Document Report ---
ED General - General Chief Complaint: General Weakness Stated Complaint: NAUSEA/WEAKNESS Time Seen by Provider: 06/13/19 19:02 Primary Care Provider: MARISSA CASTELLANO MD [Primary Care Provider] - Follow up as needed Mode of Arrival: Wheelchair Notes: Patient is a 68-year-old male that comes to the emergency department for chief complaint of generalized weakness. He is on chemotherapy, last chemotherapy was 1 month ago, he is being treated for prostate cancer, he has had surgery and is now on chemotherapy. He denies metastasis. He states that he is not vomiting, not having diarrhea, still eating and drinking, however he just feels incredibly weak. He denies dizziness, passing out, fever/chills, difficulty breathing, any locations of pain including chest pain, or instability of gait. He lives at home with his family. His oncologist is Dr. Castellano. Remaining medical history is hypertension and hyperlipidemia. TRAVEL OUTSIDE OF THE [place] IN LAST 30 DAYS: No - Related Data Allergies/Adverse Reactions: No Known Allergies Allergy (Verified 06/13/19 18:36) Past Medical History - General Information source: Patient, Relative - Social History Smoking Status: Never Smoker Chew tobacco use (# tins/day): No Frequency of alcohol use: None Drug Abuse: None Lives with: Family Family History: Reviewed & Not Pertinent, Hypertension Patient has suicidal ideation: No Patient has homicidal ideation: No - Past Medical History Cardiac Medical History: Reports: Hx Hypercholesterolemia, Hx Hypertension Denies: Hx Coronary Artery Disease, Hx Heart Attack Pulmonary Medical History: Reports: Hx Pneumonia - "years ago" Denies: Hx Asthma, Hx Bronchitis, Hx COPD Neurological Medical History: Denies: Hx Cerebrovascular Accident, Hx Seizures Renal/ Medical History: Reports: Hx Benign Prostatic Hyperplasia. 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 Denies: Hx Open Heart Surgery, Hx Pacemaker - Immunizations Immunizations up to date: No Hx Diphtheria, Pertussis, Tetanus Vaccination: No Review of Systems - Review of Systems Constitutional: See HPI EENT: No symptoms reported Cardiovascular: No symptoms reported Respiratory: No symptoms reported Gastrointestinal: No symptoms reported Genitourinary: No symptoms reported Male Genitourinary: No symptoms reported Musculoskeletal: No symptoms reported Skin: No symptoms reported Hematologic/Lymphatic: No symptoms reported Neurological/Psychological: No symptoms reported Physical Exam - Vital signs Vitals: Temp Pulse Resp BP Pulse Ox 98.0 F 101 H 18 107/65 97 06/13/19 18:43 06/13/19 18:43 06/13/19 18:43 06/13/19 18:43 06/13/19 18:43 - Notes Notes: GENERAL: Alert, interacts well. No acute distress. HEAD: Normocephalic, atraumatic. EYES: Pupils equal, round, and reactive to light. Extraocular movements intact. ENT: Oral mucosa moist, tongue midline. Oropharynx unremarkable. Airway patent. LUNGS: Clear to auscultation bilaterally, no wheezes, rales, or rhonchi. No respiratory distress. HEART: Regular rate and rhythm. No murmur ABDOMEN: Soft, non-tender. Non-distended. Bowel sounds present in all 4 quadrants. GENITOURINARY: Deferred EXTREMITIES: Moves all 4 extremities spontaneously. No edema, normal radial and dorsalis pedis pulses bilaterally. No cyanosis. BACK: no cervical, thoracic, lumbar midline tenderness. No saddle anesthesia, normal distal neurovascular exam. Moves all extremities in full range of motion. NEUROLOGICAL: Alert and oriented x3. Normal speech. Cranial nerves II through XII grossly intact. PSYCH: Normal affect, normal mood. SKIN: Warm, dry, normal turgor. No rashes or lesions noted. Course - Re-evaluation Re-evalutation: Patient is actually well-appearing on my exam. He is alert, conversational, does not have specific complaints other than generally not feeling good. His vital signs are unremarkable, he is afebrile. CBC nonspecific without concerning findings. Chemistry hemolyzed. Urinalysis shows elevated specific gravity with 80 ketones. Given IV fluids. After initial IV fluid bolus chemistry was obtained and unremarkable. Troponin is not elevated. Chest x-ray unremarkable. Patient reexamined, he is almost completed his second liter of normal saline. He is smiling, well-appearing, he states he feels great. He has no current complaints. He states he feels completely improved and he is ready to leave. Family at bedside. He states he will follow close with his oncologist and return if he worsens. Stable time of discharge. - Vital Signs Vital signs: Temp Pulse Resp BP Pulse Ox 98.0 F 101 H 19 113/54 L 97 06/13/19 18:43 06/13/19 18:43 06/13/19 23:41 06/13/19 23:41 06/13/19 23:40 - Laboratory Result Diagrams: 06/13/19 20:15 06/13/19 21:49 Laboratory results interpreted by me: 06/13/19 06/13/19 06/13/19 20:15 20:49 21:49 RDW 16.1 H Lymphocytes % 12.9 L Alkaline Phosphatase 178 H Urine Ketones 80 H Urine Blood LARGE H Discharge - Discharge Clinical Impression: Generalized weakness, Dehydration Condition: Stable Disposition: HOME, SELF-CARE Additional Instructions: Your work-up shows dehydration and ketones, you have been treated for this, remaining work-up and evaluation of do not show any concerning findings at this time. Follow-up closely with your oncologist Dr. Castellano. Return if you worsen including vomiting, abdominal pain, fever, shortness of b reath, passing out, or any other concerning or worsening symptoms. Referrals: MARISSA CASTELLANO MD [Primary Care Provider] - Follow up as needed
[2019-06-13 20:34] LABS: ABSOLUTE EOSINOPHILS # (AUTO) 0.1 10^3/uL (0.0-0.6); ABSOLUTE LYMPHOCYTES (AUTO) 1.1 10^3/uL (0.5-4.7); ABSOLUTE MONOCYTES (AUTO) 0.8 10^3/uL (0.1-1.4); ABSOLUTE NEUT (AUTO) 6.6 10^3/uL (1.7-8.2); BASOPHILS % (AUTO) 0.4 % (0-2); EOSINOPHILS % (AUTO) 0.9 % (0-6); HEMOGLOBIN 13.5 g/dL (13.5-17.0); LYMPHOCYTES % (AUTO) 12.9 % (13-45); MEAN CORPUSCULAR HGB CONC 32.9 g/dL (32.0-36.0); MEAN CORPUSCULAR VOLUME 88 fl (80-97); MONOCYTES % (AUTO) 9.8 % (3-13); PLATELET COUNT 242 10^3/uL (150-450); RED BLOOD COUNT 4.65 10^6/uL (4.35-5.55); RED CELL DISTRIBUTION WIDTH 16.1 % (11.5-14.0); TOTAL CELLS COUNTED % (AUTO) 100 %; WHITE BLOOD COUNT 8.6 10^3/uL (4.0-10.5)
--- NOTE | 2019-06-13 21:07 | RADIOLOGY REPORT (SQ) ---
EXAM DESCRIPTION: [facility]: XR CHEST 2 VIEWS Views: 2 CLINICAL HISTORY: 68 years Male, weakness COMPARISON: 05/04/2019 FINDINGS: The lungs are clear. No pneumothorax or significant pleural effusion. Right IJ port has been removed and a left IJ port placed, tip in the SVC. Mediastinum is unremarkable. Bony structures are unremarkable for age. IMPRESSION: 1. No acute cardiothoracic abnormality.
[2019-06-13 21:18] LABS: APPEARANCE,URINE SLIGHTLY-CLOUDY; BILIRUBIN,URINE NEGATIVE (NEGATIVE); COLOR,URINE YELLOW; GLUCOSE, URINE NEGATIVE (NEGATIVE); KETONES,URINE 80 mg/dL (NEGATIVE); LEUKOCYTE ESTERASE,URINE NEGATIVE (NEGATIVE); NITRITE,URINE NEGATIVE (NEGATIVE); PROTEIN,URINE NEGATIVE (NEGATIVE); URINE SPECIFIC GRAVITY 1.021; UROBILINOGEN,URINE NEGATIVE mg/dL (<2.0)
[2019-06-13 22:26] LABS: ALBUMIN 3.8 g/dL (3.5-5.0); ALKALINE PHOSPHATASE 178 U/L (38-126); ANION GAP 8 (5-19); ASPARTATE AMINO TRANSFERASE 34 U/L (17-59); BILIRUBIN,DIRECT 0.2 mg/dL (0.0-0.4); BILIRUBIN,TOTAL 0.6 mg/dL (0.2-1.3); BLOOD UREA NITROGEN 20 mg/dL (7-20); CALCIUM 9.2 mg/dL (8.4-10.2); CARBON DIOXIDE 24 mmol/L (22-30); CHLORIDE 107 mmol/L (98-107); GLUCOSE 91 mg/dL (75-110); POTASSIUM 3.9 mmol/L (3.6-5.0); TOTAL PROTEIN 6.9 g/dL (6.3-8.2)
[2019-06-13 23:46] VITALS: BP 113/54
--- NOTE | 2019-06-14 01:55 | EKG REPORT ---
SEVERITY:- BORDERLINE ECG - SINUS RHYTHM BORDERLINE ST ELEVATION, ANTEROLATERAL LEADS : Confirmed by: Mavis Mandel MD 14-Jun-2019 01:54:55
== END 2019-06-13 23:52 | disposition home or self-care (01) ==
LOC: ER 18:30
DX: E86.0 Dehydration (principal); R53.1 Weakness; C61 Malignant neoplasm of prostate; Z79.899 Other long term (current) drug therapy; I10 Essential (primary) hypertension
CPT/HCPCS: 93005; 99285; 96360; 96361; 36415; 85025; 80053; 81001; 84484; 83605; 71046; 93010; A9270; J7030; S0119

== ENCOUNTER 2019-06-14 22:11 | Emergency (ER) | payer MEDICARE ==
[2019-06-14] MEDS ORDERED: ONDANSETRON HCL INJ/PF 4 MG/2 ML SDV IV ONE (23:44)
[2019-06-14] MEDS ORDERED: NORMAL SALINE 1000 ML 1,000 ML IV ONE (23:44)
--- NOTE | 2019-06-15 00:31 | RADIOLOGY REPORT (SQ) ---
CT HEAD WITHOUT IV CONTRAST EXAM DATE: 06/14/2019 11:41 PM CDT HISTORY: Headache. COMPARISON: PET/CT scan dated 06/07/2019 TECHNIQUE: CT scan of the brain without IV contrast. This exam was performed according to our departmental dose-optimization program, which includes automated exposure control, adjustment of the mA and/or kV according to patient size and/or use of iterative reconstruction technique. FINDINGS: There is a focal 5.0 x 2.0 cm hyperdense mass in the right frontal lobe with surrounding hypodensity suggesting vasogenic edema, with mass effect and midline shift, [id number] measuring 4 mm. No acute intracranial hemorrhage. Prior left frontal craniotomy is noted. The paranasal sinuses are clear. IMPRESSION: 1. 5 cm mass in the right frontal lobe with 4 mm right to left midline shift. This may represent metastatic disease. Contrast-enhanced MRI is recommended for complete evaluation. 2. No acute intracranial hemorrhage.
--- NOTE | 2019-06-15 00:39 | RADIOLOGY REPORT (SQ) ---
EXAM DESCRIPTION: [facility]: CT LUMBAR SPINE WITHOUT IV CONTRAST CLINICAL HISTORY: 68 years Male; low back pain TECHNIQUE: Noncontrast lumbar spine CT with sagittal and coronal reconstructions. All CT scans at this facility use dose modulation, iterative reconstruction, and/or weight based dosing when appropriate to reduce radiation dose to as low as reasonably achievable. COMPARISON: None. FINDINGS: Alignment is anatomic. Degenerative changes are noted in the lower lumbar spine. L3-L4: Minimal disc bulging. L4-L5: Mild facet arthropathy and minimal disc bulging. L5-S1: Mild disc bulging. Mild facet arthropathy. No acute perivertebral edema. No focal bone lesions. There is no acute fracture. Vertebral heights are preserved. No epidural hematoma. IMPRESSION: 1. No acute fracture or subluxation of the lumbar spine. 2. Mild degenerative changes of the lower lumbar spine.
--- NOTE | 2019-06-15 00:41 | RADIOLOGY REPORT (SQ) ---
EXAM DESCRIPTION: XR CHEST 1 VIEW COMPLETED DATE/TME: 06/14/2019 23:44 CLINICAL HISTORY: 68 years Male, weakness COMPARISON:May 04 2019 NUMBER OF VIEWS/TECHNIQUE: 1/AP FINDINGS: Adequate lung volume, clear parenchyma, normal cardiac silhouette, and intact bony thorax. Adequate appearing left jugular central line. IMPRESSION: No acute cardiopulmonary findings.
[2019-06-15 01:05] LABS: ABSOLUTE EOSINOPHILS # (AUTO) 0.1 10^3/uL (0.0-0.6); ABSOLUTE MONOCYTES (AUTO) 0.7 10^3/uL (0.1-1.4); ABSOLUTE NEUT (AUTO) 6.1 10^3/uL (1.7-8.2); BASOPHILS % (AUTO) 0.3 % (0-2); HEMOGLOBIN 12.4 g/dL (13.5-17.0); LYMPHOCYTES % (AUTO) 12.9 % (13-45); MEAN CORPUSCULAR HEMOGLOBIN 28.3 pg (27.0-33.4); MEAN CORPUSCULAR HGB CONC 32.8 g/dL (32.0-36.0); MEAN CORPUSCULAR VOLUME 86 fl (80-97); MONOCYTES % (AUTO) 9.1 % (3-13); PLATELET COUNT 237 10^3/uL (150-450); RED CELL DISTRIBUTION WIDTH 16.2 % (11.5-14.0); SEGMENTED NEUTROPHILS % (AUTO) 76.7 % (42-78); TOTAL CELLS COUNTED % (AUTO) 100 %
[2019-06-15 01:23] LABS: ALBUMIN 3.5 g/dL (3.5-5.0); ALKALINE PHOSPHATASE 173 U/L (38-126); ANION GAP 10 (5-19); ASPARTATE AMINO TRANSFERASE 25 U/L (17-59); BILIRUBIN,DIRECT 0.2 mg/dL (0.0-0.4); BILIRUBIN,TOTAL 0.6 mg/dL (0.2-1.3); BLOOD UREA NITROGEN 12 mg/dL (7-20); CALCIUM 9.4 mg/dL (8.4-10.2); CARBON DIOXIDE 22 mmol/L (22-30); CHLORIDE 108 mmol/L (98-107); GLUCOSE 87 mg/dL (75-110); POTASSIUM 3.8 mmol/L (3.6-5.0); TOTAL PROTEIN 6.3 g/dL (6.3-8.2)
[2019-06-15] MEDS ORDERED: DEXAMETHASONE SOD PHOS INJ 10 MG/1 ML VIAL IV ONE (01:53)
[2019-06-15] MEDS ORDERED: MORPHINE SULFATE 10 MG/ML INJ IV ONE (01:54)
--- NOTE | 2019-06-15 02:51 | ER Document Report ---
ED General - General Chief Complaint: General Weakness Stated Complaint: SICK Time Seen by Provider: 06/14/19 23:12 Primary Care Provider: KENZIE DALTON MD [Primary Care Provider] - Follow up as needed Notes: Patient is 68-year-old male presents with complaints of proximately 2 weeks of worsening weakness and nausea. He says had any appetite and is just not felt well. No fevers. Says the last 48 hours has developed a slight headache and has developed photophobia. No weakness or numbness into his extremities. Does have history of prostate cancer. He is followed by Dr. Welch. Last chemotherapy was 1 month ago. Family does not think there is any known metastasis of the cancer at this time. No chest pain. No shortness of breath. No abdominal pain. TRAVEL OUTSIDE OF THE [place] IN LAST 30 DAYS: No - Related Data Allergies/Adverse Reactions: No Known Allergies Allergy (Verified 06/13/19 18:36) Past Medical History - Social History Smoking Status: Unknown if Ever Smoked Frequency of alcohol use: None Drug Abuse: None Family History: Reviewed & Not Pertinent, Hypertension - Past Medical History Cardiac Medical History: Reports: Hx Hypercholesterolemia, Hx Hypertension Denies: Hx Coronary Artery Disease, Hx Heart Attack Pulmonary Medical History: Reports: Hx Pneumonia - "years ago" Denies: Hx Asthma, Hx Bronchitis, Hx COPD Neurological Medical History: Denies: Hx Cerebrovascular Accident, Hx Seizures Renal/ Medical History: Reports: Hx Benign Prostatic Hyperplasia. 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 Denies: Hx Open Heart Surgery, Hx Pacemaker - Immunizations Immunizations up to date: No Hx Diphtheria, Pertussis, Tetanus Vaccination: No Review of Systems - Review of Systems Notes: My Normal Review Basic REVIEW OF SYSTEMS: CONSTITUTIONAL : Denies fever, chills, or sweats. Generalized weakness RESPIRATORY: Denies cough, cold, or chest congestion. Denies shortness of breath, difficulty breathing, or wheezing. GASTROINTESTINAL: Denies abdominal pain. Nausea but no vomiting GENITOURINARY: Denies difficulty urinating, painful urination, burning, frequency, or blood in urine. MUSCULOSKELETAL: Denies neck or back pain or joint pain or swelling. SKIN: Denies rash or skin lesions. NEUROLOGICAL: Denies altered mental status or loss of consciousness. Has a headache. Denies weakness or paralysis or loss of use of either side. Denies problems with gait or speech. Denies sensory or motor loss. Has photophobia ALL OTHER SYSTEMS REVIEWED AND NEGATIVE. Physical Exam - Vital signs Vitals: Temp Pulse Resp BP Pulse Ox 99.2 F 79 18 105/68 98 06/14/19 22:19 06/14/19 22:19 06/14/19 22:19 06/14/19 22:06/14/19 22:19 - Notes Notes: General Appearance: Well nourished, alert, cooperative, no acute distress, moderate obvious discomfort. Patient laying in bed with towels over his eyes because of the severe photophobia. Vitals: reviewed, See vital signs table. Head: no swelling or tenderness to the head Eyes: PERRL, EOMI, Conjuctiva clear Mouth: No decreasd moisture Lungs: No wheezing, No rales, No rhonci, No accessory muscle use, good air exchange bilaterally. Heart: Normal rate, Regular rythm, No murmur, no rub Abdomen: Normal BS, soft, No rigidity, No abdominal tenderness, No guarding, no rebound, no abdominal masses, no organomegaly Extremities: strength 5/5 in all extremities, good pulses in all extremities, no swelling or tenderness in the extremities, no edema. Skin: warm, dry, appropriate color, no rash Neuro: speech clear, oriented x 3, normal affect, responds appropriately to questions. Cranial nerves 2-12 are intact. Good distal sensation. Patient moves all extremities without difficulty. Course - Re-evaluation Re-evalutation: 06/15/19 02:[address] scan unfortunately does show a mass. There is a little bit of a shift. I have given a dose of Decadron. Have given pain medicine for his headache and this is making him feel much improved. Still has significant photophobia however his pain is improving. His laboratory evaluation is unremarkable at this time. I did speak with [facility]. We are transferring the patient as we do not have any neurosurgical coverage at our facility. Patient has been accepted by Dr. Guadarrama, medical oncologist, at [facility]. Family and patient made aware of plan and they are agreeable with plan. 06/15/19 04:32 Transport team is at bedside. Patient is being talking with family and is in no distress and well-appearing. Patient still has some photophobia. Patient is stable for medical transfer. - Vital Signs Vital signs: Temp Pulse Resp BP Pulse Ox 99.2 F 79 29 H 121/67 97 06/14/19 22:19 06/14/19 22:19 06/15/19 04:01 06/15/19 04:01 06/15/19 04:01 - Laboratory Result Diagrams: 06/15/19 00:50 06/15/19 00:50 Laboratory results interpreted by me: 06/15/19 06/15/19 00:50 00:50 Hgb 12.4 L RDW 16.2 H Lymphocytes % 12.9 L Chloride 108 H Alkaline Phosphatase 173 H - EKG Interpretation by Me Additional EKG results interpreted by me: 06/15/19 02:51 EKG is reviewed and interpreted by me. EKG shows sinus rhythm with rate [address] segment elevation or depression. No ischemic T wave inversions. HI interval, QRS duration, QT intervals are within normal range. Old EKG for comparison is from June 13, 2019. Discharge - Discharge Clinical Impression: Brain mass Condition: Stable Disposition: [facility] Referrals: KENZIE DALTON MD [Primary Care Provider] - Follow up as needed
[2019-06-15 04:09] VITALS: BP 121/67
--- NOTE | 2019-06-15 07:47 | EKG REPORT ---
SEVERITY:- NORMAL ECG - SINUS RHYTHM : Confirmed by: Foreign Cortes MD 15-Jun-2019 07:41:41
== END 2019-06-15 04:16 | disposition short-term general hospital (02) ==
LOC: ER 22:11
DX: G93.9 Disorder of brain, unspecified (principal); R51 Headache; H53.149 Visual discomfort, unspecified; E78.00 Pure hypercholesterolemia, unspecified; I10 Essential (primary) hypertension; Z85.46 Personal history of malignant neoplasm of prostate; Z85.07 Personal history of malignant neoplasm of pancreas
CPT/HCPCS: 93005; 99285; 96361; 96374; 96375; 36415; 85025; 80053; 84484; 71045; 70450; 72131; 93010; J2270; J2405; J7030; J1100

== ENCOUNTER → 2019-09-23 | Outpatient (CLI) | payer MEDICARE ==
[2019-09-23 10:33] LABS: ALBUMIN 3.8 g/dL (3.5-5.0); ANION GAP 12 (5-19); ASPARTATE AMINO TRANSFERASE 20 U/L (17-59); BILIRUBIN,DIRECT 0.2 mg/dL (0.0-0.4); BILIRUBIN,TOTAL 0.4 mg/dL (0.2-1.3); BLOOD UREA NITROGEN 8 mg/dL (7-20); CALCIUM 8.5 mg/dL (8.4-10.2); CARBON DIOXIDE 19 mmol/L (22-30); CHLORIDE 113 mmol/L (98-107); GLUCOSE 71 mg/dL (75-110); NEONATAL BILIRUBIN RESULT 0.2 mg/dL (0.1-1.1); POTASSIUM 4.1 mmol/L (3.6-5.0); TOTAL PROTEIN 6.8 g/dL (6.3-8.2)
[2019-09-23 11:48] LABS: ALKALINE PHOSPHATASE 2848 U/L (38-126)
== END ==
LOC: OD 09:24
PROVIDERS: ATTEND Internal Medicine Geriatric Medicine
DX: I10 Essential (primary) hypertension (principal); C61 Malignant neoplasm of prostate; E78.00 Pure hypercholesterolemia, unspecified
CPT/HCPCS: 36415; 80053

== ENCOUNTER 2019-10-23 09:00 | Outpatient (CLI) | payer MEDICARE ==
[~2019-10-23 09:00] MED LIST changes: -1/2 NORMAL SALINE 1,000 ML IV PRN; +CALCIUM GLUCONATE 2,000 MG in DEXTROSE 5%-WATER 100 ML IV PRN; -DIAZEPAM 5 MG TABLET PO PRN; -OXYCODONE-ACETAMINOPHEN 5-325 MG TABLET PO PRN
[2019-10-23] MEDS: NORMAL SALINE 250 ML IV PRN ×2 (09:25→09:43)
[2019-10-23 09:55] VITALS: BP 98/69
[2019-10-23] MEDS ORDERED: NORMAL SALINE 500 ML IV PRN (10:42)
== END 2019-10-23 12:30 | disposition home or self-care (01) ==
LOC: II 09:00 → 5TH 09:04 → II 12:30
PROVIDERS: ATTEND Internal Medicine
DX: E83.51 Hypocalcemia (principal); E86.0 Dehydration
CPT/HCPCS: 96365; 96366; 96361; J0610; J7060; J1642

== ENCOUNTER 2019-11-03 14:06 | Inpatient (IN) | payer MEDICARE ==
--- NOTE | 2019-11-03 15:06 | ER Document Report ---
ED General - General Chief Complaint: General Weakness Stated Complaint: BODY WEAKNESS,CHEST PAIN Time Seen by Provider: 11/03/19 14:18 Primary Care Provider: KENZIE DALTON MD [Primary Care Provider] - Follow up as needed TRAVEL OUTSIDE OF THE [place] IN LAST 30 DAYS: No - HPI Notes: 69m h/o prostate Ca. Per 06/29 ED note: "Followed by Dr. Welch, last chemo 05/29 at that time. Family does not think there is any known metastasis of the cancer at [that] time." - Related Data Allergies/Adverse Reactions: No Known Allergies Allergy (Verified 06/13/19 18:36) Past Medical History - Social History Family History: Reviewed & Not Pertinent, Hypertension - Past Medical History Cardiac Medical History: Reports: Hx Hypercholesterolemia, Hx Hypertension Denies: Hx Coronary Artery Disease, Hx Heart Attack Pulmonary Medical History: Reports: Hx Pneumonia - "years ago" Denies: Hx Asthma, Hx Bronchitis, Hx COPD Neurological Medical History: Denies: Hx Cerebrovascular Accident, Hx Seizures Renal/ Medical History: Reports: Hx Benign Prostatic Hyperplasia. 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 Denies: Hx Open Heart Surgery, Hx Pacemaker - Immunizations Immunizations up to date: No Hx Diphtheria, Pertussis, Tetanus Vaccination: No Physical Exam - Vital signs Vitals: Resp Pulse Ox 20 98 11/03/19 14:49 11/03/19 14:49 Course - Vital Signs Vital signs: Temp Pulse Resp BP Pulse Ox 99.8 F 19 102/70 99 11/03/19 15:17 11/03/19 18:04 11/03/19 18:04 11/03/19 18:04 - Laboratory Result Diagrams: 11/03/19 15:19 11/03/19 15:19 Laboratory results interpreted by me: 11/03/19 11/03/19 11/03/19 15:19 15:19 19:38 WBC 26.6 H RBC 4.26 L Hgb 12.2 L Hct 36.9 L RDW 22.1 H Seg Neuts % (Manual) 95 H Band Neutrophils % 2 L Lymphocytes % (Manual) 0 L Abs Neuts (Manual) 25.8 H Abs Lymphs (Manual) 0.0 L Carbon Dioxide 16 L Calcium 6.3 L* AST 88 H Alkaline Phosphatase 3547 H Urine Protein 100 H Urine Ketones 80 H Urine Blood LARGE H Discharge - Discharge Clinical Impression: Leukocytosis, Bony metastasis, Pain of metastatic malignancy Disposition: ADMITTED INPATIENT Unit Admitted: [facility] Referrals: KENZIE DALTON MD [Primary Care Provider] - Follow up as needed
[2019-11-03 15:28] LABS: HEMATOCRIT 36.9 % (37.9-51.0); HEMOGLOBIN 12.2 g/dL (13.5-17.0); MEAN CORPUSCULAR HEMOGLOBIN 28.5 pg (27.0-33.4); MEAN CORPUSCULAR VOLUME 87 fl (80-97); PLATELET COUNT 200 10^3/uL (150-450); RED BLOOD COUNT 4.26 10^6/uL (4.35-5.55); RED CELL DISTRIBUTION WIDTH 22.1 % (11.5-14.0); WHITE BLOOD COUNT 26.6 10^3/uL (4.0-10.5)
[2019-11-03 16:02] LABS: CREATINE KINASE MB < 0.22 ng/mL (<4.55); TROPONIN I < 0.012 ng/mL
[2019-11-03 16:09] LABS: ABSOLUTE MONOCYTES # (MANUAL) 0.8 10^3/uL (0.1-1.4); ANISOCYTOSIS 3+; BAND NEUTROPHILS % (MANUAL) 2 % (3-5); BASOPHILS % (MANUAL) 0 % (0-2); EOSINOPHILS % (MANUAL) 0 % (0-6); LYMPHOCYTES % (MANUAL) 0 % (13-45); MONOCYTES % (MANUAL) 3 % (3-13); NUCLEATED RED BLOOD CELLS 1 /100 WBC (0); SEGMENTED NEUTROPHILS % (MAN) 95 % (42-78); TOTAL CELLS COUNTED 100
[2019-11-03 16:10] LABS: PLATELET COMMENT ADEQUATE
[2019-11-03 16:22] LABS: ANION GAP 16 (5-19); ASPARTATE AMINO TRANSFERASE 88 U/L (17-59); BILIRUBIN,DIRECT 0.2 mg/dL (0.0-0.4); BILIRUBIN,TOTAL 0.9 mg/dL (0.2-1.3); BLOOD UREA NITROGEN 13 mg/dL (7-20); CARBON DIOXIDE 16 mmol/L (22-30); CHLORIDE 106 mmol/L (98-107); CREATINE KINASE 132 U/L (55-170); GLUCOSE 102 mg/dL (75-110); NEONATAL BILIRUBIN RESULT 0.7 mg/dL (0.1-1.1); POTASSIUM 4.8 mmol/L (3.6-5.0)
[2019-11-03] MEDS ORDERED: ONDANSETRON HCL INJ/PF 4 MG/2 ML SDV IV ONE ×2 (16:43→22:55)
[2019-11-03 16:45] LABS: CALCIUM 6.3 mg/dL (8.4-10.2)
[2019-11-03 16:46] LABS: ALKALINE PHOSPHATASE 3547 U/L (38-126)
[2019-11-03] MEDS: HYDROMORPHONE HCL INJ/PF 2 MG/ML AMPULE IV PRN ×2 (17:14→19:29)
[2019-11-03 17:27] LABS: PHOSPHORUS 2.9 mg/dL (2.5-4.5)
--- NOTE | 2019-11-03 17:35 | RADIOLOGY REPORT (SQ) ---
EXAM DESCRIPTION: CHEST 2 VIEWS COMPLETED DATE/TIME: 11/03/2019 5:05 pm REASON FOR STUDY: increasing FARAH COMPARISON: 06/14/2019 EXAM PARAMETERS: NUMBER OF VIEWS: two views TECHNIQUE: Digital Frontal and Lateral radiographic views of the chest acquired. RADIATION DOSE: NA LIMITATIONS: none FINDINGS: LUNGS AND PLEURA: No opacities, masses or pneumothorax. No pleural effusion. MEDIASTINUM AND HILAR STRUCTURES: No masses or contour abnormalities. HEART AND VASCULAR STRUCTURES: Heart normal size. No evidence for failure. BONES: No acute findings. HARDWARE: None in the chest. OTHER: Left chest wall injection catheter is present with the tip near the cavoatrial junction IMPRESSION: NO ACUTE RADIOGRAPHIC FINDING IN THE CHEST. TECHNICAL DOCUMENTATION: JOB ID: [id number] [employer]- All Rights Reserved Reading location - IP/workstation name: [email or web address]
--- NOTE | 2019-11-03 17:58 | RADIOLOGY REPORT (SQ) ---
EXAM DESCRIPTION: KNEE BILATERAL 1-2 VIEWS COMPLETED DATE/TIME: 11/03/2019 5:05 pm REASON FOR STUDY: b/l pain w/ wt bearing COMPARISON: None. NUMBER OF VIEWS: Two views TECHNIQUE: AP and lateral standing bilateral knees. LIMITATIONS: None. FINDINGS: MINERALIZATION: Normal. RIGHT KNEE BONES: No acute fracture. No worrisome bone lesions. MEDIAL COMPARTMENT: No significant osteophytes. No joint space narrowing. No chondrocalcinosis. LATERAL COMPARTMENT: No significant osteophytes. No joint space narrowing. No chondrocalcinosis. PATELLOFEMORAL COMPARTMENT: No significant osteophytes. No joint space narrowing. No chondrocalc inosis. LEFT KNEE BONES: No acute fracture. No worrisome bone lesions. MEDIAL COMPARTMENT: No significant osteophytes. No joint space narrowing. No chondrocalcinosis. LATERAL COMPARTMENT: No significant osteophytes. No joint space narrowing. No chondrocalcinosis. PATELLOFEMORAL COMPARTMENT: No significant osteophytes. No joint space narrowing. No chondrocalc inosis. IMPRESSION: NEGATIVE STUDY OF THE STANDING LEFT AND RIGHT KNEES. NO SIGNIFICANT JOINT SPACE NARROWIN G OR OTHER SIGNS OF ARTHRITIS. TECHNICAL DOCUMENTATION: JOB ID: [id number] [employer]- All Rights Reserved Reading location - IP/workstation name: [email or web address]
[2019-11-03 20:03] LABS: APPEARANCE,URINE SLIGHTLY-CLOUDY; BILIRUBIN,URINE NEGATIVE (NEGATIVE); COLOR,URINE YELLOW; GLUCOSE, URINE NEGATIVE (NEGATIVE); KETONES,URINE 80 mg/dL (NEGATIVE); LEUKOCYTE ESTERASE,URINE NEGATIVE (NEGATIVE); NITRITE,URINE NEGATIVE (NEGATIVE); PROTEIN,URINE 100 mg/dL (NEGATIVE); URINE SPECIFIC GRAVITY 1.017; UROBILINOGEN,URINE NEGATIVE mg/dL (<2.0)
[2019-11-03] MEDS ORDERED: NORMAL SALINE 500 ML IV ONE (20:05)
--- NOTE | 2019-11-03 20:18 | EKG REPORT ---
SEVERITY:- BORDERLINE ECG - SINUS RHYTHM BORDERLINE PROLONGED QT INTERVAL : Confirmed by: Mavis Mandel MD 03-Nov-2019 20:17:53
--- NOTE | 2019-11-03 20:18 | EKG REPORT ---
SEVERITY:- NORMAL ECG - SINUS RHYTHM : Confirmed by: Mavis Mandel MD 03-Nov-2019 20:17:57
--- NOTE | 2019-11-03 21:54 | RADIOLOGY REPORT (SQ) ---
EXAM DESCRIPTION: CT chest with contrast CLINICAL HISTORY: 69 years Male, dyspnea on exertion, prostate ca, r/o PE COMPARISON: None. TECHNIQUE: Axial images of the chest were performed utilizing intravenous contrast, with sagittal and coronal reformatted images. This exam was performed according to our departmental dose-optimization program which includes use of Automated Exposure Control, adjustment of the mA and/or kV according to patient size and/or use of iterative reconstruction technique. FINDINGS: There is a small pericardial effusion. There are small bilateral pleural effusions. There is subsegmental atelectasis at the left lung base. No evidence of pulmonary embolus. No evidence of aortic dissection. There are extensive blastic bony prostate carcinoma metastases. IMPRESSION: Small pericardial effusion. Other findings as described.
--- NOTE | 2019-11-03 22:05 | RADIOLOGY REPORT (SQ) ---
EXAM DESCRIPTION: CT abdomen and pelvis with contrast CLINICAL HISTORY: 69 years Male, sob, pelvic pain, known prostate metastases, COMPARISON: None. TECHNIQUE: Axial images of the abdomen and pelvis were performed utilizing intravenous contrast, with sagittal and coronal reformatted images. This exam was performed according to our departmental dose-optimization program which includes use of Automated Exposure Control, adjustment of the mA and/or kV according to patient size and/or use of iterative reconstruction technique. FINDINGS: There is some soft tissue projecting superiorly from the region of the prostate, measuring approximately 3.6 x 2.2 cm. There are extensive blastic bony prostate carcinoma metastases. There are atherosclerotic changes involving the abdominal aorta, but there is no aneurysm. There is a small left lumbar hernia containing only fat. There is no significant radiographic abnormality of the liver, spleen, pancreas, adrenal glands or kidneys. There is a small left renal cyst. IMPRESSION: Soft tissue projecting superiorly from the region of the prostate. Residual or recurrent carcinoma must be considered. Extensive blastic bony metastases. Other findings as described.
[2019-11-04 01:49] LABS: ANION GAP 13 (5-19); BLOOD UREA NITROGEN 13 mg/dL (7-20); CARBON DIOXIDE 16 mmol/L (22-30); CHLORIDE 111 mmol/L (98-107); GLUCOSE 112 mg/dL (75-110)
[2019-11-04 02:02] LABS: CALCIUM 5.8 mg/dL (8.4-10.2)
[2019-11-04] MEDS: OXYCODONE-ACETAMINOPHEN 5-325 MG TABLET PO PRN ×2 (02:15→14:18)
[2019-11-04 03:45] LABS: ANION GAP 13 (5-19); BLOOD UREA NITROGEN 12 mg/dL (7-20); CARBON DIOXIDE 15 mmol/L (22-30); CHLORIDE 109 mmol/L (98-107); GLUCOSE 138 mg/dL (75-110)
[2019-11-04 03:54] LABS: HEMATOCRIT 34.1 % (37.9-51.0); HEMOGLOBIN 11.1 g/dL (13.5-17.0); MEAN CORPUSCULAR HEMOGLOBIN 28.4 pg (27.0-33.4); MEAN CORPUSCULAR HGB CONC 32.6 g/dL (32.0-36.0); MEAN CORPUSCULAR VOLUME 87 fl (80-97); PLATELET COUNT 200 10^3/uL (150-450); RED BLOOD COUNT 3.92 10^6/uL (4.35-5.55); RED CELL DISTRIBUTION WIDTH 22.4 % (11.5-14.0); WHITE BLOOD COUNT 23.6 10^3/uL (4.0-10.5)
[2019-11-04] MEDS: NORMAL SALINE 1000 ML 1,000 ML IV PRN ×2 (03:56→14:15)
[2019-11-04 03:58] LABS: CALCIUM 5.9 mg/dL (8.4-10.2); POTASSIUM 5.2 mmol/L (3.6-5.0)
[2019-11-04 04:07] LABS: ABSOLUTE LYMPHOCYTES# (MANUAL) 1.2 10^3/uL (0.5-4.7); ABSOLUTE MONOCYTES # (MANUAL) 0.5 10^3/uL (0.1-1.4); BASOPHILS % (MANUAL) 0 % (0-2); EOSINOPHILS % (MANUAL) 0 % (0-6); LYMPHOCYTES % (MANUAL) 5 % (13-45); MONOCYTES % (MANUAL) 2 % (3-13); SEGMENTED NEUTROPHILS % (MAN) 93 % (42-78); TOTAL CELLS COUNTED 100
[2019-11-04 04:09] LABS: ANISOCYTOSIS 3+; BURR CELLS SLIGHT; OVALOCYTES SLIGHT; PLATELET COMMENT ADEQUATE; POIKILOCYTOSIS SLIGHT; SCHISTOCYTES SLIGHT; TOXIC GRANULATION 1+
[2019-11-04] MEDS ORDERED: CALCIUM GLUCONATE 1000 MG/10 ML INJ IV PRN (04:38)
[2019-11-04] MEDS ORDERED: CALCIUM GLUCONATE 1,000 MG in DEXTROSE 5%-WATER 50 ML IV ONE (04:45)
[2019-11-04] MEDS ORDERED: CALCIUM GLUCONATE 1000 MG/10 ML INJ IV ONE ×2 (05:59→08:15)
[2019-11-04] MEDS: ENOXAPARIN SODIUM INJ 40 MG/0.4 ML DISP.SYRIN SUBCUT SCH (10:11)
--- NOTE | 2019-11-04 13:10 | PDOC H&P ---
History of Present Illness Admission Date/PCP: 11/03/19 22:26 KENZIE DALTON History of Present Illness: MARIAA ALCANTAR JR is a 69 year old male, he has a history of metastatic prostate cancer with bone metastasis, he came to the emergency room last night for evaluation of generalized body weakness, fatigue and lack of energy. In the emergency room he was evaluated, he was found to have leukocytosis, the white cell count was 26,000 predominantly neutrophil, he also had CT chest with contrast as well as CT abdomen and pelvis with contrast. The CT chest with contrast demonstrated small bilateral pleural effusions, subsegmental atelectasis of the left lung base, no evidence of pulmonary embolus also found was extensive blastic bony metastasis, the CAT scan of the abdomen and pelvis with contrast demonstrated soft tissue projecting superiorly from the prostrate there was atherosclerotic changes involving the abdominal aorta no aneurysm also demonstrated was bony metastasis. The ED physician was particularly concerned about the leukocytosis she felt this could represent infection, patient on active chemotherapy, he follows with oncology in [place] the last chemotherapy was about 3 weeks ago, he probably had Neupogen and that could be the explanation for the leukocytosis. Patient does not look septic exam today by the bedside on examination there is no focal abnormality identified physically. There is no evidence of focal infection, no pneumonia demonstrated from the CAT scan of the chest, there is no focal infiltrate in the abdominal cavity, there is no abscess or any abnormality. Patient is main complaint on direct questioning was bone pain which is understandable considering the bone metastasis. Past Medical History Cardiac Medical History: Reports: Hyperlipidema, Hypertension Pulmonary Medical History: Reports: Pneumonia - "years ago" Malignancy Medical History: Reports: Other - Metastatic prostate cancer Musculoskeltal Medical History: Reports: Arthritis - Shoulder Past Surgical History Past Surgical History: Reports: Orthopedic Surgery - Lt knee Social History Smoking Status: Former Smoker Cigarettes Packs Per Day: 1 Electronic Cigarette use?: No Number of Years Smokin Last Time Smoked: June Frequency of Alcohol Use: None Hx Recreational Drug Use: No Drugs: None Hx Prescription Drug Abuse: No Family History Family History: Reviewed & Not Pertinent, Hypertension Parental Family History Reviewed: Yes Children Family History Reviewed: Yes Sibling(s) Family History Reviewed.: Yes Medication/Allergy Allergies/Adverse Reactions: No Known Allergies Allergy (Verified 06/13/19 18:36) Review of Systems Constitutional: PRESENT: fatigue Eyes: ABSENT: visual disturbances Ears: ABSENT: hearing changes Cardiovascular: ABSENT: chest pain, dyspnea on exertion, edema, orthropnea, palpitations Respiratory: ABSENT: cough, hemoptysis Gastrointestinal: ABSENT: abdominal pain, constipation, diarrhea, hematemesis, hematochezia, nausea, vomiting Genitourinary: ABSENT: dysuria, hematuria Musculoskeletal: PRESENT: back pain, other - bone pain Integumentary: ABSENT: rash, wounds Neurological: ABSENT: abnormal gait, abnormal speech, confusion, dizziness, focal weakness, syncope Psychiatric: ABSENT: anxiety, depression, homidical ideation, suicidal ideation Endocrine: ABSENT: cold intolerance, heat intolerance, menstrual abnormalities, polydipsia, polyuria Hematologic/Lymphatic: ABSENT: easy bleeding, easy bruising, lymphadenopathy Physical Exam Vital Signs: Temp Pulse Resp BP Pulse Ox 97.9 F 77 16 100/70 99 11/04/19 07:37 11/04/19 07:37 11/04/19 07:37 11/04/19 07:37 11/04/19 07:37 Intake & Output 11/03/19 11/04/19 11/05/19 06:59 06:59 06:59 Intake Total 750 Output Total 0 Balance 750 Weight 67.3 kg General appearance: PRESENT: no acute distress Head exam: PRESENT: atraumatic, normocephalic Eye exam: PRESENT: conjunctiva pink, EOMI, PERRLA Ear exam: PRESENT: normal external ear exam Mouth exam: PRESENT: moist, tongue midline Neck exam: PRESENT: full ROM Respiratory exam: PRESENT: clear to auscultation rebecca Cardiovascular exam: PRESENT: RRR, +S1, +S2 Vascular exam: PRESENT: normal capillary refill GI/Abdominal exam: PRESENT: normal bowel sounds, soft Rectal exam: PRESENT: deferred Neurological exam: PRESENT: alert, CN II-XII grossly intact Psychiatric exam: PRESENT: appropriate affect, normal mood Skin exam: PRESENT: dry, intact, warm Results Laboratory Results: 11/04/19 03:10 11/04/19 03:10 11/03/19 11/03/19 11/03/19 15:19 15: 15:19 WBC 26.6 H RBC 4.26 L Hgb 12.2 L Hct 36.9 L MCV 87 MCH 28.5 MCHC 33.0 RDW 22.1 H Plt Count 200 Seg Neutrophils % Not Reportable Sodium 138.2 Potassium 4.8 Chloride 106 Carbon Dioxide 16 L Anion Gap 16 BUN 13 Creatinine 0.59 Est GFR ( Amer) > 60 Est GFR (Non-Af Amer) Glucose 102 Calcium 6.3 L* Phosphorus 2.9 Magnesium 2.0 Total Bilirubin 0.9 AST 88 H Alkaline Phosphatase 3547 H Total Protein 7.0 Albumin 4.0 PTH Intact Urine Color Urine Appearance Urine pH Ur Specific Amorita Urine Protein Urine Glucose (UA) Urine Ketones Urine Blood Urine Nitrite Ur Leukocyte Esterase Urine WBC (Auto) Urine RBC (Auto) 11/03/19 11/03/19 11/04/19 19:38 23:24 01:10 WBC RBC Hgb Hct MCV MCH MCHC RDW Plt Count Seg Neutrophils % Sodium Cancelled 140.4 Potassium Cancelled 6.0 H* D Chloride Cancelled 111 H Carbon Dioxide Cancelled 16 L Anion Gap Cancelled 13 BUN Cancelled 13 Creatinine Cancelled 0.65 Est GFR ( Amer) Cancelled > 60 Est GFR (Non-Af Amer) Cancelled Glucose Cancelled 112 H Calcium Cancelled 5.8 L* Phosphorus Magnesium Total Bilirubin AST Alkaline Phosphatase Total Protein Albumin PTH Intact Urine Color YELLOW Urine Appearance SLIGHTLY-CLOUDY Urine pH 6.0 Ur Specific Amorita 1.017 Urine Protein 100 H Urine Glucose (UA) NEGATIVE Urine Ketones 80 H Urine Blood LARGE H Urine Nitrite NEGATIVE Ur Leukocyte Esterase NEGATIVE Urine WBC (Auto) 2 Urine RBC (Auto) >182 11/04/19 11/04/19 11/04/19 03:10 03:10 03:10 WBC 23.6 H RBC 3.92 L Hgb 11.1 L Hct 34.1 L MCV 87 MCH 28.4 MCHC 32.6 RDW 22.4 H Plt Count 200 Seg Neutrophils % Not Reportable Sodium 137.4 Potassium 5.2 H Chloride 109 H Carbon Dioxide 15 L Anion Gap 13 BUN 12 Creatinine 0.57 Est GFR ( Amer) > 60 Est GFR (Non-Af Amer) Glucose 138 H Calcium 5.9 L* Phosphorus Magnesium Total Bilirubin AST Alkaline Phosphatase Total Protein Albumin PTH Intact 704.1 H Urine Color Urine Appearance Urine pH Ur Specific Amorita Urine Protein Urine Glucose (UA) Urine Ketones Urine Blood Urine Nitrite Ur Leukocyte Esterase Urine WBC (Auto) Urine RBC (Auto) 11/03/19 11/03/19 11/03/19 15:19 15:19 15:19 Creatine Kinase 132 CK-MB (CK-2) < 0.22 Troponin I < 0.012 Cancelled NT-Pro-B Natriuret Pep 65 11/03/19 18:27 Creatine Kinase CK-MB (CK-2) Troponin I < 0.012 NT-Pro-B Natriuret Pep Impressions: Chest X-Ray 11/03/19 16:39 IMPRESSION: NO ACUTE RADIOGRAPHIC FINDING IN THE CHEST. Knee X-Ray 11/03/19 16:46 IMPRESSION: NEGATIVE STUDY OF THE STANDING LEFT AND RIGHT KNEES. NO SIGNIFICANT JOINT SPACE NARROWING OR OTHER SIGNS OF ARTHRITIS. Abdomen/Pelvis CT 11/03/19 20:07 IMPRESSION: Soft tissue projecting superiorly from the region of the prostate. Residual or recurrent carcinoma must be considered. Extensive blastic bony metastases. Other findings as described. Chest/Abdomen CTA 11/03/19 20:13 IMPRESSION: Small pericardial effusion. Other findings as described. Assessment & Plan - Diagnosis (1) Hypocalcemia Is this a current diagnosis for this admission?: Yes Plan: Occasionally patient with widespread osteoblastic metastasis particularly those with prostate cancer after hypocalcemia. The presumed cause is deposition of calcium in the newly formed bone around the tumor there is appropriate secondary hyperparathyroidism in response to the hypercalcemia, vitamin D level will be ordered, to rule out vitamin D deficiency (2) Secondary hyperparathyroidism, non-renal Is this a current diagnosis for this admission?: Yes Plan: There is secondary hyperparathyroidism in response to the hypercalcemia, secondary to the osteoblastic activity of the bones due to bone metastasis from prostate cancer (3) Pain from bone metastases Is this a current diagnosis for this admission?: Yes (4) Leucocytosis Qualifiers: Leukocytosis type: unspecified Qualified Code(s): D72.829 - Elevated white blood cell count, unspecified Is this a current diagnosis for this admission?: Yes Plan: This is most likely secondary to granulocyte colony-stimulating factors, Neupogen (5) Malignant neoplasm of prostate Is this a current diagnosis for this admission?: Yes (6) Bony metastasis Is this a current diagnosis for this admission?: Yes Plan: Pain control (7) Pain of metastatic malignancy Is this a current diagnosis for this admission?: Yes
[2019-11-04] MEDS ORDERED: CHOLECALCIFEROL (D3) 400 UNIT/ML DROPS 50 ML PO SCH (13:15)
[2019-11-04] MEDS: CALCIUM CARBONATE 500 MG TABLET PO SCH ×2 (14:15→18:09)
[2019-11-04] MEDS ORDERED: CHOLECALCIFEROL (D3) 400 UNIT TABLET PO SCH (16:00)
[2019-11-04] MEDS ORDERED: GRANISETRON TD PRN (16:46)
[2019-11-04] MEDS ORDERED: OLANZAPINE 5 MG TABLET PO PRN (16:46)
[2019-11-04] MEDS ORDERED: (PENDING PHARMACY ID) (Potassium Chloride [Klor-Con M20] 20 MEQ) PO SCH (17:00)
[2019-11-04] MEDS ORDERED: (PENDING PHARMACY ID) (Linagliptin [Tradjenta] 5 MG) PO SCH (17:00)
[2019-11-04] MEDS ORDERED: POTASSIUM CHLORIDE 10 MEQ TABLET.ER PO ONE (18:00)
[2019-11-04] MEDS ORDERED: PREDNISONE 10 MG TABLET PO ONE (18:00)
[2019-11-04] MEDS ORDERED: SITAGLIPTIN PHOSPHATE 50 MG TABLET PO ONE (18:00)
[2019-11-04] MEDS: TAMSULOSIN HCL 0.4 MG CAP.SR.24H PO SCH (18:06)
[2019-11-04] MEDS ORDERED: INSULIN GLARGINE,HUM.REC.ANLOG 1,000 UNIT/10 ML VIAL (PYX) SUBCUT ONE (21:54)
[2019-11-04] MEDS: LEVETIRACETAM 500 MG TABLET PO SCH (21:56)
[2019-11-04] MEDS ORDERED: INSULIN GLARGINE,HUM.REC.ANLOG 1,000 UNIT/10 ML VIAL SUBCUT SCH (22:00)
[2019-11-05] MEDS: NORMAL SALINE 1000 ML 1,000 ML IV PRN ×3 (00:55→21:12)
[2019-11-05 05:25] LABS: HEMATOCRIT 30.2 % (37.9-51.0); MEAN CORPUSCULAR HEMOGLOBIN 28.3 pg (27.0-33.4); MEAN CORPUSCULAR VOLUME 86 fl (80-97); PLATELET COUNT 190 10^3/uL (150-450); RED BLOOD COUNT 3.52 10^6/uL (4.35-5.55); RED CELL DISTRIBUTION WIDTH 21.9 % (11.5-14.0); WHITE BLOOD COUNT 17.7 10^3/uL (4.0-10.5)
[2019-11-05 05:50] LABS: ABSOLUTE LYMPHOCYTES# (MANUAL) 0.5 10^3/uL (0.5-4.7); ABSOLUTE MONOCYTES # (MANUAL) 1.4 10^3/uL (0.1-1.4); BASOPHILS % (MANUAL) 0 % (0-2); EOSINOPHILS % (MANUAL) 0 % (0-6); LYMPHOCYTES % (MANUAL) 3 % (13-45); MONOCYTES % (MANUAL) 8 % (3-13); SEGMENTED NEUTROPHILS % (MAN) 89 % (42-78); TOTAL CELLS COUNTED 100
[2019-11-05 05:51] LABS: ANISOCYTOSIS 3+; BURR CELLS SLIGHT; OVALOCYTES SLIGHT; POIKILOCYTOSIS SLIGHT; POLYCHROMASIA SLIGHT; SCHISTOCYTES SLIGHT; TEAR DROP CELLS SLIGHT; TOXIC GRANULATION SLIGHT
[2019-11-05 05:52] LABS: PLATELET COMMENT ADEQUATE
[2019-11-05] MEDS: POTASSIUM CHLORIDE 10 MEQ TABLET.ER PO SCH (09:12)
[2019-11-05] MEDS: PREDNISONE 10 MG TABLET PO SCH (09:12)
[2019-11-05] MEDS: ENOXAPARIN SODIUM INJ 40 MG/0.4 ML DISP.SYRIN SUBCUT SCH (09:12)
[2019-11-05] MEDS: LEVETIRACETAM 500 MG TABLET PO SCH ×2 (09:12→21:13)
[2019-11-05] MEDS: OXYCODONE HCL IR 5 MG TABLET PO PRN (09:12)
[2019-11-05] MEDS: CALCIUM CARBONATE 500 MG TABLET PO SCH ×2 (09:12→17:17)
[2019-11-05] MEDS: SITAGLIPTIN PHOSPHATE 50 MG TABLET PO SCH (09:12)
[2019-11-05] MEDS: OXYCODONE-ACETAMINOPHEN 5-325 MG TABLET PO PRN (11:44)
[2019-11-05 13:02] LABS: ANION GAP 10 (5-19); ASPARTATE AMINO TRANSFERASE 69 U/L (17-59); BILIRUBIN,DIRECT 0.2 mg/dL (0.0-0.4); BILIRUBIN,TOTAL 0.4 mg/dL (0.2-1.3); BLOOD UREA NITROGEN 9 mg/dL (7-20); CALCIUM 8.4 mg/dL (8.4-10.2); CARBON DIOXIDE 20 mmol/L (22-30); CHLORIDE 105 mmol/L (98-107); GLUCOSE 105 mg/dL (75-110); NEONATAL BILIRUBIN RESULT 0.2 mg/dL (0.1-1.1); POTASSIUM 5.1 mmol/L (3.6-5.0); TOTAL PROTEIN 5.6 g/dL (6.3-8.2)
[2019-11-05 13:12] LABS: ALKALINE PHOSPHATASE 2798 U/L (38-126)
--- NOTE | 2019-11-05 14:30 | PDOC PROGRESS REPORT ---
Subjective Progress Note for:: 11/05/19 Subjective:: Patient seen by the bedside, he complain of bone pains, the hypocalcemia is normalized Reason For Visit: METASTATIC PROSTATE CANCER, LEUCOCYTOSIS Physical Exam Vital Signs: Temp Pulse Resp BP Pulse Ox 99.1 F 91 16 124/67 99 11/05/19 11:34 11/05/19 14:00 11/05/19 11:34 11/05/19 11:34 11/05/19 11:34 Intake & Output 11/04/19 11/05/19 11/06/19 06:59 06:59 06:59 Intake Total 750 3640 1000 Output Total 0 700 Balance 750 2940 1000 Weight 67.3 kg 71.3 kg General appearance: PRESENT: no acute distress Eye exam: PRESENT: PERRLA Ear exam: PRESENT: normal external ear exam Mouth exam: PRESENT: moist, tongue midline Neck exam: PRESENT: full ROM Respiratory exam: PRESENT: clear to auscultation rebecca Cardiovascular exam: PRESENT: +S1, +S2 Vascular exam: PRESENT: normal capillary refill GI/Abdominal exam: PRESENT: soft Rectal exam: PRESENT: deferred Neurological exam: PRESENT: alert, CN II-XII grossly intact Psychiatric exam: PRESENT: appropriate affect, normal mood Skin exam: PRESENT: dry, intact, warm Results Laboratory Results: 11/05/19 04:40 11/05/19 04:40 11/05/19 11/05/19 04:40 04:40 WBC 17.7 H RBC 3.52 L Hgb 10.0 L Hct 30.2 L MCV 86 MCH 28.3 MCHC 33.0 RDW 21.9 H Plt Count 190 Seg Neutrophils % Not Reportable Sodium 135.4 L Potassium 5.1 H Chloride 105 Carbon Dioxide 20 L Anion Gap 10 BUN 9 Creatinine 0.59 Est GFR ( Amer) > 60 Glucose 105 Calcium 8.4 Total Bilirubin 0.4 AST 69 H Alkaline Phosphatase 2798 H Total Protein 5.6 L Albumin 3.0 L 11/03/19 11/03/19 11/03/19 15:19 15:19 15:19 Creatine Kinase 132 CK-MB (CK-2) < 0.22 Troponin I < 0.012 Cancelled NT-Pro-B Natriuret Pep 65 11/03/19 18:27 Creatine Kinase CK-MB (CK-2) Troponin I < 0.012 NT-Pro-B Natriuret Pep Impressions: Chest X-Ray 11/03/19 16:39 IMPRESSION: NO ACUTE RADIOGRAPHIC FINDING IN THE CHEST. Knee X-Ray 11/03/19 16:46 IMPRESSION: NEGATIVE STUDY OF THE STANDING LEFT AND RIGHT KNEES. NO SIGNIFICANT JOINT SPACE NARROWING OR OTHER SIGNS OF ARTHRITIS. Abdomen/Pelvis CT 11/03/19 20:07 IMPRESSION: Soft tissue projecting superiorly from the region of the prostate. Residual or recurrent carcinoma must be considered. Extensive blastic bony metastases. Other findings as described. Chest/Abdomen CTA 11/03/19 20:13 IMPRESSION: Small pericardial effusion. Other findings as described. Assessment & Plan - Diagnosis (1) Hypocalcemia Is this a current diagnosis for this admission?: Yes Plan: Occasionally patient with widespread osteoblastic metastasis particularly those with prostate cancer after hypocalcemia. The presumed cause is deposition of ca lcium in the newly formed bone around the tumor there is appropriate secondary hyperparathyroidism in response to the hypocalcemia. The hypocalcemia is normalized (2) Secondary hyperparathyroidism, non-renal Is this a current diagnosis for this admission?: Yes (3) Pain from bone metastases Is this a current diagnosis for this admission?: Yes (4) Leucocytosis Qualifiers: Leukocytosis type: unspecified Qualified Code(s): D72.829 - Elevated white blood cell count, unspecified Is this a current diagnosis for this admission?: Yes (5) Malignant neoplasm of prostate Is this a current diagnosis for this admission?: Yes (6) Bony metastasis Is this a current diagnosis for this admission?: Yes (7) Pain of metastatic malignancy Is this a current diagnosis for this admission?: Yes Plan: Continue present pain medications - Time Time Spent with patient: 35 or more minutes Level of Care: TELE
[2019-11-05] MEDS: TAMSULOSIN HCL 0.4 MG CAP.SR.24H PO SCH (17:17)
[2019-11-05] MEDS ORDERED: INSULIN GLARGINE,HUM.REC.ANLOG 1,000 UNIT/10 ML VIAL (PYX) SUBCUT ONE (21:10)
[2019-11-05] MEDS: INSULIN GLARGINE,HUM.REC.ANLOG 1,000 UNIT/10 ML VIAL SUBCUT SCH (21:13)
[2019-11-06] MEDS: OXYCODONE-ACETAMINOPHEN 5-325 MG TABLET PO PRN ×3 (03:52→19:20)
[2019-11-06 05:25] LABS: HEMATOCRIT 29.7 % (37.9-51.0); HEMOGLOBIN 9.7 g/dL (13.5-17.0); MEAN CORPUSCULAR HEMOGLOBIN 28.1 pg (27.0-33.4); MEAN CORPUSCULAR HGB CONC 32.8 g/dL (32.0-36.0); MEAN CORPUSCULAR VOLUME 86 fl (80-97); PLATELET COUNT 200 10^3/uL (150-450); RED BLOOD COUNT 3.47 10^6/uL (4.35-5.55); RED CELL DISTRIBUTION WIDTH 21.8 % (11.5-14.0); WHITE BLOOD COUNT 19.6 10^3/uL (4.0-10.5)
[2019-11-06 06:23] LABS: ABSOLUTE LYMPHOCYTES# (MANUAL) 1.4 10^3/uL (0.5-4.7); ABSOLUTE MONOCYTES # (MANUAL) 1.6 10^3/uL (0.1-1.4); BAND NEUTROPHILS % (MANUAL) 1 % (3-5); BASOPHILS % (MANUAL) 0 % (0-2); EOSINOPHILS % (MANUAL) 0 % (0-6); LYMPHOCYTES % (MANUAL) 7 % (13-45); MONOCYTES % (MANUAL) 8 % (3-13); SEGMENTED NEUTROPHILS % (MAN) 84 % (42-78); TOTAL CELLS COUNTED 100
[2019-11-06 06:24] LABS: ANISOCYTOSIS 3+; POIKILOCYTOSIS SLIGHT; TOXIC GRANULATION SLIGHT
[2019-11-06 06:25] LABS: HYPOCHROMASIA SLIGHT; OVALOCYTES SLIGHT; PLATELET COMMENT ADEQUATE
[2019-11-06] MEDS: NORMAL SALINE 1000 ML 1,000 ML IV PRN ×2 (07:57→17:16)
[2019-11-06] MEDS: ENOXAPARIN SODIUM INJ 40 MG/0.4 ML DISP.SYRIN SUBCUT SCH (09:10)
[2019-11-06] MEDS: SITAGLIPTIN PHOSPHATE 50 MG TABLET PO SCH (09:10)
[2019-11-06] MEDS: CALCIUM CARBONATE 500 MG TABLET PO SCH ×2 (09:10→17:16)
[2019-11-06] MEDS: POTASSIUM CHLORIDE 10 MEQ TABLET.ER PO SCH (09:11)
[2019-11-06] MEDS: PREDNISONE 10 MG TABLET PO SCH (09:11)
[2019-11-06] MEDS: LEVETIRACETAM 500 MG TABLET PO SCH ×2 (09:11→22:37)
[2019-11-06] MEDS: TAMSULOSIN HCL 0.4 MG CAP.SR.24H PO SCH (17:16)
[2019-11-06] MEDS ORDERED: FENTANYL 12 MCG/HR PATCH.TD72 TD SCH (21:00)
--- NOTE | 2019-11-06 21:24 | PDOC PROGRESS REPORT ---
Subjective Progress Note for:: 11/06/19 Subjective:: Patient was admitted for significant leukocytosis and concern for possible infectious process. He had episode of giulia hematuria at bedside during my visit tonight. He denied any fever, chills, flank pain, dysuria, or abdominal pain. He reported persistent bone pain and inadequate relief from his current pain management regimen. Daughter reported that patient has oncology appointment with Dr. Haines on 11/12/2019. Family reported episodes intermittent hematuria of last couple of days. Reason For Visit: METASTATIC PROSTATE CANCER, LEUKOCYTOSIS ? CAUSE Physical Exam Vital Signs: Temp Pulse Resp BP Pulse Ox 97.8 F 81 17 99/65 L 97 11/06/19 16:41 11/06/19 16:41 11/06/19 16:41 11/06/19 16:41 11/06/19 16:41 Intake & Output 11/05/19 11/06/19 11/07/19 06:59 06:59 06:59 Intake Total 3640 3520 2652 Output Total 700 1375 550 Balance 2940 2145 2102 Weight 71.3 kg 71.3 kg General appearance: PRESENT: mild distress - from pain Head exam: PRESENT: atraumatic, normocephalic Eye exam: PRESENT: conjunctiva pink, EOMI, PERRLA. ABSENT: scleral icterus Ear exam: PRESENT: normal external ear exam Mouth exam: PRESENT: moist Teeth exam: PRESENT: poor dentation Respiratory exam: PRESENT: clear to auscultation rebecca Cardiovascular exam: PRESENT: RRR. ABSENT: diastolic murmur, rubs, systolic murmur Vascular exam: ABSENT: pallor GI/Abdominal exam: PRESENT: normal bowel sounds, soft. ABSENT: distended, guarding, mass, organolmegaly, rebound, tenderness Rectal exam: PRESENT: deferred Extremities exam: ABSENT: pedal edema Neurological exam: PRESENT: alert, awake, oriented to person, oriented to place, oriented to time, oriented to situation, CN II-XII grossly intact. ABSENT: motor sensory deficit Psychiatric exam: PRESENT: appropriate affect, normal mood. ABSENT: homicidal ideation, suicidal ideation Skin exam: PRESENT: dry, warm, other - healed wound of his craniostomy surgery Results Laboratory Results: 11/06/19 04:41 11/05/19 04:40 11/06/19 04:41 WBC 19.6 H RBC 3.47 L Hgb 9.7 L Hct 29.7 L MCV 86 MCH 28.1 MCHC 32.8 RDW 21.8 H Plt Count 200 Seg Neutrophils % Not Reportable 11/03/19 11/03/19 11/03/19 15:19 15:19 15:19 Creatine Kinase 132 CK-MB (CK-2) < 0.22 Troponin I < 0.012 Cancelled NT-Pro-B Natriuret Pep 65 11/03/19 18:27 Creatine Kinase CK-MB (CK-2) Troponin I < 0.012 NT-Pro-B Natriuret Pep Impressions: Chest X-Ray 11/03/19 16:39 IMPRESSION: NO ACUTE RADIOGRAPHIC FINDING IN THE CHEST. Knee X-Ray 11/03/19 16:46 IMPRESSION: NEGATIVE STUDY OF THE STANDING LEFT AND RIGHT KNEES. NO SIGNIFICANT JOINT SPACE NARROWING OR OTHER SIGNS OF ARTHRITIS. Abdomen/Pelvis CT 11/03/19 20:07 IMPRESSION: Soft tissue projecting superiorly from the region of the prostate. Residual or recurrent carcinoma must be considered. Extensive blastic bony metastases. Other findings as described. Chest/Abdomen CTA 11/03/19 20:13 IMPRESSION: Small pericardial effusion. Other findings as described. Assessment & Plan - Diagnosis (1) Neutrophilic leukocytosis Is this a current diagnosis for this admission?: Yes Plan: Most likely drug induced from Neulasta. The concern for infection becomes real in view of his painless hematuria. We will obtain U/A with microscopy and culture. In view f his immunocompromised status I will start on IV Invanz 1gm daily. (2) Hematuria, gross Is this a current diagnosis for this admission?: Yes Plan: Obtain CBC with diff stat, PT, INR, aPTT. Hold Lovenox. (3) Hypocalcemia Is this a current diagnosis for this admission?: Yes Plan: Continue current medication management. Serum calcium is currently corrected. (4) Pain from bone metastases Is this a current diagnosis for this admission?: Yes Plan: Start on Fentanyl patch 12 mcg /hour q 72 hours. Maintain on Oxycodone-APAP regimen for breakthrough pain with intent to increase Fentanyl dosage gradually. (5) Malignant neoplasm of prostate metastatic to bone Is this a current diagnosis for this admission?: Yes Plan: Will account for his abnormally elevated liver enzymes. I will request medical oncologist consultation with Dr. Haines in view of his new onset painless hematuria. (6) Secondary hyperparathyroidism, non-renal Is this a current diagnosis for this admission?: Yes Plan: Maintain on current therapy for his hypocalcemia management. (7) Diabetes mellitus type 2 in nonobese Is this a current diagnosis for this admission?: Yes Plan: Continue current medication management. (8) HTN (hypertension) Qualifiers: Hypertension type: essential hypertension Qualified Code(s): I10 - Essential (primary) hypertension Is this a current diagnosis for this admission?: Yes Plan: Continue current medication management. (9) HLD (hyperlipidemia) Qualifiers: Hyperlipidemia type: unspecified Qualified Code(s): E78.5 - Hyperlipidemia, unspecified Is this a current diagnosis for this admission?: Yes Plan: Continue current medication management. (10) Chronic constipation Is this a current diagnosis for this admission?: Yes Plan: Start on Senna Plus 2 tablets p.o qhs. - Time Time Spent with patient: 35 or more minutes Level of Care: IMCU Medications reviewed and adjusted accordingly: Yes Anticipated discharge: Home with Homehealth Within: Other - Inpatient Certification Based on my medical assessment, after consideration of the patient's comorbidities, presenting symptoms, or acuity I expect that the services needed warrant INPATIENT care.: Yes I certify that my determination is in accordance with my understanding of Medicare's requirements for reasonable and necessary INPATIENT services [42 CFR 412.3e].: Yes Medical Necessity: Significant Comorbidiites Make Outpatient Treatment Too Risky, Need Close Monitoring Due to Risk of Patient Decompensation, Need For IV Fluids, Need For Continuous Telemetry Monitoring, Need for Pain Control, Risk of Complication if Not Cared For in Hospital, Risk of Diagnosis Which Will Require Inpatient Eval/Care/Monitoring Post Hospital Care: D/C Product Coordinator Documentation - Plan Summary Plan Summary: See attending physician orders for details about care plan.
[2019-11-06 22:01] LABS: HEMATOCRIT 30.1 % (37.9-51.0); MEAN CORPUSCULAR HEMOGLOBIN 28.4 pg (27.0-33.4); MEAN CORPUSCULAR HGB CONC 33.1 g/dL (32.0-36.0); MEAN CORPUSCULAR VOLUME 86 fl (80-97); PLATELET COUNT 210 10^3/uL (150-450); RED BLOOD COUNT 3.51 10^6/uL (4.35-5.55); RED CELL DISTRIBUTION WIDTH 21.9 % (11.5-14.0); WHITE BLOOD COUNT 21.2 10^3/uL (4.0-10.5)
[2019-11-06 22:05] LABS: INTERNATIONAL RATION (INR) 1.07; PROTHROMBIN TIME 13.9 SEC (11.4-15.4)
[2019-11-06 22:06] LABS: PARTIAL THROMBOPLASTIN TIME 32.6 SEC (23.5-35.8)
[2019-11-06 22:25] LABS: ABSOLUTE LYMPHOCYTES# (MANUAL) 1.1 10^3/uL (0.5-4.7); ABSOLUTE MONOCYTES # (MANUAL) 1.1 10^3/uL (0.1-1.4); BAND NEUTROPHILS % (MANUAL) 3 % (3-5); BASOPHILS % (MANUAL) 0 % (0-2); EOSINOPHILS % (MANUAL) 0 % (0-6); LYMPHOCYTES % (MANUAL) 5 % (13-45); MONOCYTES % (MANUAL) 5 % (3-13); NUCLEATED RED BLOOD CELLS 1 /100 WBC (0); SEGMENTED NEUTROPHILS % (MAN) 87 % (42-78); TOTAL CELLS COUNTED 100
[2019-11-06 22:26] LABS: ANISOCYTOSIS 3+; PLATELET COMMENT ADEQUATE; SCHISTOCYTES SLIGHT
[2019-11-06] MEDS: SENNOSIDES/DOCUSATE 8.6-50 MG 1 EACH TABLET PO SCH (22:37)
[2019-11-06] MEDS: INSULIN GLARGINE,HUM.REC.ANLOG 1,000 UNIT/10 ML VIAL SUBCUT SCH (22:39)
[2019-11-07] MEDS: OXYCODONE-ACETAMINOPHEN 5-325 MG TABLET PO PRN ×3 (05:21→17:10)
[2019-11-07] MEDS: METOPROLOL TARTRATE 25 MG TABLET PO SCH ×2 (06:45→21:48)
[2019-11-07] MEDS: NORMAL SALINE 1000 ML 1,000 ML IV PRN ×2 (06:57→17:11)
[2019-11-07] MEDS: SITAGLIPTIN PHOSPHATE 50 MG TABLET PO SCH (09:18)
[2019-11-07] MEDS: PREDNISONE 10 MG TABLET PO SCH (09:18)
[2019-11-07] MEDS: LEVETIRACETAM 500 MG TABLET PO SCH ×2 (09:18→21:48)
[2019-11-07] MEDS: CALCIUM CARBONATE 500 MG TABLET PO SCH ×2 (09:18→17:11)
[2019-11-07] MEDS: POTASSIUM CHLORIDE 10 MEQ TABLET.ER PO SCH (09:23)
--- NOTE | 2019-11-07 12:44 | PDOC PROGRESS REPORT ---
Subjective Progress Note for:: 11/07/19 Subjective:: Patient has recurrent hematuria but specimen looked more altered blood than fresh bleeding. No reported fever or chills but experience sweating around his neck and upper back region. He denied flank pain, dysuria, or abdominal pain. Reason For Visit: METASTATIC PROSTATE CANCER, LEUKOCYTOSIS ? CAUSE Physical Exam Vital Signs: Temp Pulse Resp BP Pulse Ox 99.5 F 145 H 18 119/82 96 11/07/19 07:31 11/07/19 07:31 11/07/19 07:31 11/07/19 07:31 11/07/19 07:31 Intake & Output 11/06/19 11/07/19 11/08/19 06:59 06:59 06:59 Intake Total 3520 3902 Output Total 1375 1775 Balance 2145 2127 Weight 74.3 kg Physical Exam: General appearance: PRESENT: mild distress - from pain Head exam: PRESENT: atraumatic, normocephalic Eye exam: PRESENT: conjunctiva pink, EOMI, PERRLA. ABSENT: pallor, scleral icterus Ear exam: PRESENT: normal external ear exam Mouth exam: PRESENT: moist Teeth exam: PRESENT: poor dentition Respiratory exam: PRESENT: clear to auscultation rebecca Cardiovascular exam: PRESENT: RRR. ABSENT: diastolic murmur, rubs, systolic murmur Vascular exam: ABSENT: pallor GI/Abdominal exam: PRESENT: normal bowel sounds, soft. ABSENT: distended, guarding, mass, organomegaly, rebound, tenderness Rectal exam: PRESENT: deferred Extremities exam: ABSENT: pedal edema Neurological exam: PRESENT: alert, awake, oriented to person, oriented to place, oriented to time, oriented to situation, CN II-XII grossly intact. ABSENT: motor sensory deficit Psychiatric exam: PRESENT: appropriate affect, normal mood. ABSENT: homicidal ideation, suicidal ideation Skin exam: PRESENT: dry, warm, other - healed wound of his craniotomy surgery Results Laboratory Results: 11/06/19 21:45 11/05/19 04:40 11/06/19 11/06/19 21:45 21:45 WBC 21.2 H RBC 3.51 L Hgb 10.0 L Hct 30.1 L MCV 86 MCH 28.4 MCHC 33.1 RDW 21.9 H Plt Count 210 Seg Neutrophils % Not Reportable Blood Type O POSITIVE Antibody Screen NEGATIVE 11/03/19 11/03/19 11/03/19 15:19 15:19 15:19 Creatine Kinase 132 CK-MB (CK-2) < 0.22 Troponin I < 0.012 Cancelled NT-Pro-B Natriuret Pep 65 11/03/19 18:27 Creatine Kinase CK-MB (CK-2) Troponin I < 0.012 NT-Pro-B Natriuret Pep Impressions: Chest X-Ray 11/03/19 16:39 IMPRESSION: NO ACUTE RADIOGRAPHIC FINDING IN THE CHEST. Knee X-Ray 11/03/19 16:46 IMPRESSION: NEGATIVE STUDY OF THE STANDING LEFT AND RIGHT KNEES. NO SIGNIFICANT JOINT SPACE NARROWING OR OTHER SIGNS OF ARTHRITIS. Abdomen/Pelvis CT 11/03/19 20:07 IMPRESSION: Soft tissue projecting superiorly from the region of the prostate. Residual or recurrent carcinoma must be considered. Extensive blastic bony metastases. Other findings as described. Chest/Abdomen CTA 11/03/19 20:13 IMPRESSION: Small pericardial effusion. Other findings as described. Assessment & Plan - Diagnosis (1) Neutrophilic leukocytosis Is this a current diagnosis for this admission?: Yes (2) Hematuria, gross Is this a current diagnosis for this admission?: Yes (3) Hypocalcemia Is this a current diagnosis for this admission?: Yes (4) Pain from bone metastases Is this a current diagnosis for this admission?: Yes (5) Malignant neoplasm of prostate metastatic to bone Is this a current diagnosis for this admission?: Yes (6) Secondary hyperparathyroidism, non-renal Is this a current diagnosis for this admission?: Yes (7) Diabetes mellitus type 2 in nonobese Is this a current diagnosis for this admission?: Yes (8) HTN (hypertension) Qualifiers: Hypertension type: essential hypertension Qualified Code(s): I10 - Essential (primary) hypertension Is this a current diagnosis for this admission?: Yes (9) HLD (hyperlipidemia) Qualifiers: Hyperlipidemia type: unspecified Qualified Code(s): E78.5 - Hyperlipidemia, unspecified Is this a current diagnosis for this admission?: Yes (10) Chronic constipation Is this a current diagnosis for this admission?: Yes - Time Time Spent with patient: 35 or more minutes Level of Care: IMCU Medications reviewed and adjusted accordingly: Yes Anticipated discharge: Home with Homehealth Within: Other - Inpatient Certification Based on my medical assessment, after consideration of the patient's comorbidities, presenting symptoms, or acuity I expect that the services needed warrant INPATIENT care.: Yes I certify that my determination is in accordance with my understanding of Medicare's requirements for reasonable and necessary INPATIENT services [42 CFR 412.3e].: Yes Medical Necessity: Significant Comorbidiites Make Outpatient Treatment Too Risky, Need Close Monitoring Due to Risk of Patient Decompensation, Need For IV Fluids, Need For Continuous Telemetry Monitoring, Need for IV Antibiotics, Risk of Complication if Not Cared For in Hospital, Risk of Diagnosis Which Will Require Inpatient Eval/Care/Monitoring Post Hospital Care: D/C [employer] Insurance Claims Adjuster Documentation - Plan Summary Plan Summary: Continue Invanz coverage. Follow up on culture results. I had extensive discussion with patient during this bedside visit regarding differentials of his hematuria.
--- NOTE | 2019-11-07 14:20 | PDOC CONSULTATION ---
Consultation Consult Date: 11/07/19 Attending physician:: KENZIE DALTON Provider Consulted: ASAD MICHELLE Consult reason:: Patient with stage IV colon cancer, seen by Dr. Brown at [place], recently seen by us to begin transition of care History of Present Illness Admission Date/PCP: 11/05/19 12:27 KENZIE DALTON Patient complains of: Weakness, hematuria History of Present Illness: MARIAA ALCANTAR JR is a 69 year old male who presented about 2 days ago with weakness and hematuria, leukocytosis, initially felt to have possible infection, hematuria has been persistent so antibiotics have been changed today and patient was held on discharge. Patient has stage IV prostate cancer, has been treated primarily in [place] by Dr. Brown, just recently restarted on chemotherapy with Jevtana, received his first cycle of that, we gave him Neulasta, of note he had imaging done here with CTA of the chest as well as abdomen pelvis CT which does indicate a soft tissue nodule close proximity to the prostate also multiple blastic lesions that was noted about, and his alk phos is highly elevated because of that. Also pain is been an issue, he is currently getting oral Percocet but still having a lot of pain and requiring it every 4-6 hours. We discussed the use of OxyContin. 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 Psychiatric Medical History: Denies: Depression Hematology: Denies: Anemia, Sickle Cell Disease Past Surgical History Past Surgical History: Reports: Orthopedic Surgery - Lt knee Denies: Pacemaker Social History Information Source: Patient Smoking Status: Former Smoker Cigarettes Packs Per Day: 1 Electronic Cigarette use?: No Number of Years Smokin Last Time Smoked: June Frequency of Alcohol Use: None Hx Recreational Drug Use: No Drugs: None Hx Prescription Drug Abuse: No - Advance Directive Resuscitation Status: Full Code Family History Family History: Reviewed & Not Pertinent, Hypertension Parental Family History Reviewed: Yes Children Family History Reviewed: Yes Sibling(s) Family History Reviewed.: Yes Medication/Allergy Home Medications: Ergocalciferol (Vitamin D2) [Drisdol 50,000 unit (1.25MG) Capsule] 50,000 unit PO MO 11/04/19 Granisetron [Sancuso] 1 patch TD ASDIR PRN 11/04/19 Insulin Glargine,Hum.rec.anlog [Lantus Insulin 100 Unit/1 ml 10 ml] 24 units SQ QHS 11/04/19 Levetiracetam [Keppra 500 mg Tablet] 500 mg PO BID 11/04/19 Linagliptin [Tradjenta] 5 mg PO DAILY 11/04/19 Olanzapine [Zyprexa 5 mg Tablet] 5 mg PO ASDIR PRN 11/04/19 Oxycodone HCl [Oxy-Ir 5 mg Tablet] 5 mg PO Q4HP PRN 11/04/19 Potassium Chloride [Klor-Con M20] 20 meq PO DAILY 11/04/19 Prednisone 10 mg PO DAILY 11/04/19 Tamsulosin HCl [Flomax 0.4 mg Cap.sr] 0.4 mg PO QPM 11/04/19 Allergies/Adverse Reactions: No Known Allergies Allergy (Verified 06/13/19 18:36) Review of Systems Constitutional: ABSENT: chills, fever(s), headache(s), weight gain, weight loss Eyes: ABSENT: visual disturbances Ears: ABSENT: hearing changes Cardiovascular: ABSENT: chest pain, dyspnea on exertion, edema, orthropnea, palpitations Respiratory: ABSENT: cough, hemoptysis Gastrointestinal: ABSENT: abdominal pain, constipation, diarrhea, hematemesis, hematochezia, nausea, vomiting Genitourinary: ABSENT: dysuria, hematuria Musculoskeletal: ABSENT: joint swelling Integumentary: ABSENT: rash, wounds Neurological: ABSENT: abnormal gait, abnormal speech, confusion, dizziness, focal weakness, syncope Psychiatric: ABSENT: anxiety, depression, homidical ideation, suicidal ideation Endocrine: ABSENT: cold intolerance, heat intolerance, polydipsia, polyuria Hematologic/Lymphatic: ABSENT: easy bleeding, easy bruising Physical Exam Vital Signs: Temp Pulse Resp BP Pulse Ox 99.5 F 135 H 18 119/82 96 11/07/19 07:31 11/07/19 14:00 11/07/19 07:31 11/07/19 07:31 11/07/19 07:31 Intake & Output 11/06/19 11/07/19 11/08/19 06:59 06:59 06:59 Intake Total 3520 3902 Output Total 1375 2835 Balance 2145 2127 Weight 74.3 kg General appearance: PRESENT: no acute distress, well-developed, well-nourished Head exam: PRESENT: atraumatic, normocephalic Eye exam: PRESENT: conjunctiva pink, EOMI, PERRLA. ABSENT: scleral icterus Ear exam: PRESENT: normal external ear exam Mouth exam: PRESENT: moist, tongue midline Neck exam: ABSENT: carotid bruit, JVD, lymphadenopathy, thyromegaly Respiratory exam: PRESENT: clear to auscultation rebecca. ABSENT: rales, rhonchi, wheezes Cardiovascular exam: PRESENT: RRR. ABSENT: diastolic murmur, rubs, systolic murmur Pulses: PRESENT: normal dorsalis pedis pul Vascular exam: PRESENT: normal capillary refill GI/Abdominal exam: PRESENT: normal bowel sounds, soft. ABSENT: distended, guarding, mass, organolmegaly, rebound, tenderness Rectal exam: PRESENT: deferred Extremities exam: PRESENT: full ROM. ABSENT: calf tenderness, clubbing, pedal edema Neurological exam: PRESENT: alert, awake, oriented to person, oriented to place, oriented to time, oriented to situation, CN II-XII grossly intact. ABSENT: motor sensory deficit Psychiatric exam: PRESENT: appropriate affect, normal mood. ABSENT: homicidal ideation, suicidal ideation Skin exam: PRESENT: dry, intact, warm. ABSENT: cyanosis, rash Results Laboratory Results: 11/06/19 21:45 11/05/19 04:40 11/06/19 11/06/19 21:45 21:45 WBC 21.2 H RBC 3.51 L Hgb 10.0 L Hct 30.1 L MCV 86 MCH 28.4 MCHC 33.1 RDW 21.9 H Plt Count 210 Seg Neutrophils % Not Reportable Blood Type O POSITIVE Antibody Screen NEGATIVE 11/03/19 11/03/19 11/03/19 15:19 15:19 15:19 Creatine Kinase 132 CK-MB (CK-2) < 0.22 Troponin I < 0.012 Cancelled NT-Pro-B Natriuret Pep 65 11/03/19 18:27 Creatine Kinase CK-MB (CK-2) Troponin I < 0.012 NT-Pro-B Natriuret Pep Impressions: Chest X-Ray 11/03/19 16:39 IMPRESSION: NO ACUTE RADIOGRAPHIC FINDING IN THE CHEST. Knee X-Ray 11/03/19 16:46 IMPRESSION: NEGATIVE STUDY OF THE STANDING LEFT AND RIGHT KNEES. NO SIGNIFICANT JOINT SPACE NARROWING OR OTHER SIGNS OF ARTHRITIS. Abdomen/Pelvis CT 11/03/19 20:07 IMPRESSION: Soft tissue projecting superiorly from the region of the prostate. Residual or recurrent carcinoma must be considered. Extensive blastic bony metastases. Other findings as described. Chest/Abdomen CTA 11/03/19 20:13 IMPRESSION: Small pericardial effusion. Other findings as described. Status: Image reviewed by me Assessment & Plan - Diagnosis (1) Malignant neoplasm of prostate metastatic to bone Is this a current diagnosis for this admission?: Yes Plan: Stage IV prostate cancer status post Jevtana, we are in the process of transferring all of his care to us and once he is able to be discharged we will continue with chemotherapy in our office. We discussed that hematuria may be related to the nodule that was noted on CT abdomen pelvis. (2) Bony metastasis Is this a current diagnosis for this admission?: Yes Plan: I started patient on OxyContin 20 mg twice daily. Continue with oral oxycodone immediate release as well. - Time Time Spent: Greater than 70 Minutes
[2019-11-07] MEDS: ERTAPENEM SODIUM 1 GM in NORMAL SALINE 50 ML IV SCH (17:09)
[2019-11-07] MEDS: TAMSULOSIN HCL 0.4 MG CAP.SR.24H PO SCH (17:11)
[2019-11-07] MEDS: INSULIN GLARGINE,HUM.REC.ANLOG 1,000 UNIT/10 ML VIAL SUBCUT SCH (21:46)
[2019-11-07] MEDS: OXYCODONE HCL SR 10 MG TABLET PO SCH (21:47)
[2019-11-07] MEDS: SENNOSIDES/DOCUSATE 8.6-50 MG 1 EACH TABLET PO SCH (21:48)
[2019-11-08] MEDS: ACETAMINOPHEN 325 MG TABLET PO PRN (04:12)
[2019-11-08] MEDS: NORMAL SALINE 1000 ML 1,000 ML IV PRN ×2 (04:13→12:52)
[2019-11-08] MEDS: OXYCODONE HCL SR 10 MG TABLET PO SCH ×2 (09:40→21:23)
[2019-11-08] MEDS: METOPROLOL TARTRATE 25 MG TABLET PO SCH ×2 (09:41→21:23)
[2019-11-08] MEDS: PREDNISONE 10 MG TABLET PO SCH (09:41)
[2019-11-08] MEDS: SITAGLIPTIN PHOSPHATE 50 MG TABLET PO SCH (09:41)
[2019-11-08] MEDS: LEVETIRACETAM 500 MG TABLET PO SCH ×2 (09:41→21:24)
[2019-11-08] MEDS: CALCIUM CARBONATE 500 MG TABLET PO SCH ×2 (09:41→17:12)
[2019-11-08] MEDS: POTASSIUM CHLORIDE 10 MEQ TABLET.ER PO SCH (09:43)
[2019-11-08] MEDS: OXYCODONE-ACETAMINOPHEN 5-325 MG TABLET PO PRN ×2 (11:42→17:16)
[2019-11-08] MEDS: TAMSULOSIN HCL 0.4 MG CAP.SR.24H PO SCH (17:12)
[2019-11-08] MEDS: ERTAPENEM SODIUM 1 GM in NORMAL SALINE 50 ML IV SCH (17:12)
--- NOTE | 2019-11-08 18:40 | PDOC PROGRESS REPORT ---
Subjective Progress Note for:: 11/08/19 Subjective:: Patient had episode of fever 101.3F, since last clinical evaluation. His ongoing tachycardia and fever may be due to Invanz infusion but there is still concern about possible infectious process particularly with his sweating. No reported chills but experience sweating around his neck and upper back region. His hematuria is gradually resolving with tea color urine most of today. He denied flank pain, dysuria, or abdominal pain. Reason For Visit: METASTATIC PROSTATE CANCER, LEUKOCYTOSIS ? CAUSE Physical Exam Vital Signs: Temp Pulse Resp BP Pulse Ox 99.8 F 139 H 18 101/77 97 11/08/19 07:52 11/08/19 07:52 11/08/19 07:52 11/08/19 07:52 11/08/19 07:52 Intake & Output 11/07/19 11/08/19 11/09/19 06:59 06:59 06:59 Intake Total 3902 2840 Output Total 1775 1350 Balance 2127 1490 Weight 74.3 kg 75.3 kg Physical Exam: General appearance: PRESENT: mild distress - from pain Head exam: PRESENT: atraumatic, normocephalic Eye exam: PRESENT: conjunctiva pink. ABSENT: pallor, scleral icterus Ear exam: PRESENT: normal external ear exam Mouth exam: PRESENT: moist Teeth exam: PRESENT: poor dentition Respiratory exam: PRESENT: clear to auscultation rebecca Cardiovascular exam: PRESENT: RRR. ABSENT: diastolic murmur, rubs, systolic murmur GI/Abdominal exam: PRESENT: normal bowel sounds, soft. ABSENT: distended, guarding, mass, organomegaly, rebound, tenderness Extremities exam: ABSENT: pedal edema Neurological exam: PRESENT: alert, awake, oriented to person, oriented to place, oriented to time, oriented to situation, CN II-XII grossly intact. ABSENT: motor sensory deficit Psychiatric exam: PRESENT: appropriate affect, normal mood. ABSENT: homicidal ideation, suicidal ideation Skin exam: PRESENT: dry, warm, other - healed wound of his craniotomy surgery Results Laboratory Results: 11/06/19 21:45 11/05/19 04:40 11/03/19 11/03/19 11/03/19 15:19 15:19 15:19 Creatine Kinase 132 CK-MB (CK-2) < 0.22 Troponin I < 0.012 Cancelled NT-Pro-B Natriuret Pep 65 11/03/19 18:27 Creatine Kinase CK-MB (CK-2) Troponin I < 0.012 NT-Pro-B Natriuret Pep Impressions: Chest X-Ray 11/03/19 16:39 IMPRESSION: NO ACUTE RADIOGRAPHIC FINDING IN THE CHEST. Knee X-Ray 11/03/19 16:46 IMPRESSION: NEGATIVE STUDY OF THE STANDING LEFT AND RIGHT KNEES. NO SIGNIFICANT JOINT SPACE NARROWING OR OTHER SIGNS OF ARTHRITIS. Abdomen/Pelvis CT 11/03/19 20:07 IMPRESSION: Soft tissue projecting superiorly from the region of the prostate. Residual or recurrent carcinoma must be considered. Extensive blastic bony metastases. Other findings as described. Chest/Abdomen CTA 11/03/19 20:13 IMPRESSION: Small pericardial effusion. Other findings as described. Assessment & Plan - Diagnosis (1) Neutrophilic leukocytosis Is this a current diagnosis for this admission?: Yes Plan: Add IV Vancomycin to broaden the coverage in view f his fever, worsening leukocytosis and absence of definite growth from culture. (2) Hematuria, gross Is this a current diagnosis for this admission?: Yes (3) Hypocalcemia Is this a current diagnosis for this admission?: Yes (4) Pain from bone metastases Is this a current diagnosis for this admission?: Yes (5) Malignant neoplasm of prostate metastatic to bone Is this a current diagnosis for this admission?: Yes (6) Secondary hyperparathyroidism, non-renal Is this a current diagnosis for this admission?: Yes (7) Diabetes mellitus type 2 in nonobese Is this a current diagnosis for this admission?: Yes (8) HTN (hypertension) Qualifiers: Hypertension type: essential hypertension Qualified Code(s): I10 - Essential (primary) hypertension Is this a current diagnosis for this admission?: Yes (9) HLD (hyperlipidemia) Qualifiers: Hyperlipidemia type: unspecified Qualified Code(s): E78.5 - Hyperlipidemia, unspecified Is this a current diagnosis for this admission?: Yes (10) Chronic constipation Is this a current diagnosis for this admission?: Yes - Time Time Spent with patient: 35 or more minutes Level of Care: IMCU Medications reviewed and adjusted accordingly: Yes Anticipated discharge: Home with Homehealth Within: Other - Inpatient Certification Based on my medical assessment, after consideration of the patient's comorbidities, presenting symptoms, or acuity I expect that the services needed warrant INPATIENT care.: Yes I certify that my determination is in accordance with my understanding of Medicare's requirements for reasonable and necessary INPATIENT services [42 CFR 412.3e].: Yes Medical Necessity: Significant Comorbidiites Make Outpatient Treatment Too Risky, Need Close Monitoring Due to Risk of Patient Decompensation, Need For IV Fluids, Need For Continuous Telemetry Monitoring, Need for IV Antibiotics, Risk of Complication if Not Cared For in Hospital, Risk of Diagnosis Which Will Require Inpatient Eval/Care/Monitoring Post Hospital Care: D/C Gar[employer] Documentation - Plan Summary Plan Summary: Start on IV Vancomycin coverage. Follow up on culture findings. Maintain on all other current medication management.
[2019-11-08] MEDS ORDERED: VANCOMYCIN HCL INJ 1000 MG VIAL IV PRN (19:59)
[2019-11-08] MEDS ORDERED: VANCOMYCIN HCL 1,000 MG in DEXTROSE 5%-WATER 250 ML IV ONE (20:30)
[2019-11-08] MEDS: LUBIPROSTONE 24 MCG CAPSULE PO SCH (21:22)
[2019-11-08] MEDS: SENNOSIDES/DOCUSATE 8.6-50 MG 1 EACH TABLET PO SCH (21:23)
[2019-11-08] MEDS ORDERED: BISACODYL 10 MG SUPP.RECT PR ONE (22:00)
[2019-11-08] MEDS: INSULIN GLARGINE,HUM.REC.ANLOG 1,000 UNIT/10 ML VIAL SUBCUT SCH (22:25)
[2019-11-09] MEDS: NORMAL SALINE 1000 ML 1,000 ML IV PRN ×3 (01:12→21:41)
[2019-11-09 06:39] LABS: HEMATOCRIT 29.8 % (37.9-51.0); HEMOGLOBIN 9.9 g/dL (13.5-17.0); MEAN CORPUSCULAR HEMOGLOBIN 28.2 pg (27.0-33.4); MEAN CORPUSCULAR HGB CONC 33.2 g/dL (32.0-36.0); MEAN CORPUSCULAR VOLUME 85 fl (80-97); PLATELET COUNT 265 10^3/uL (150-450); RED BLOOD COUNT 3.51 10^6/uL (4.35-5.55); RED CELL DISTRIBUTION WIDTH 21.6 % (11.5-14.0); WHITE BLOOD COUNT 19.4 10^3/uL (4.0-10.5)
[2019-11-09 06:55] LABS: ABSOLUTE LYMPHOCYTES# (MANUAL) 1.7 10^3/uL (0.5-4.7); ANISOCYTOSIS 3+; BASOPHILS % (MANUAL) 0 % (0-2); EOSINOPHILS % (MANUAL) 0 % (0-6); LYMPHOCYTES % (MANUAL) 9 % (13-45); MONOCYTES % (MANUAL) 5 % (3-13); OVALOCYTES SLIGHT; PLATELET COMMENT ADEQUATE; POIKILOCYTOSIS 1+; POLYCHROMASIA SLIGHT; SCHISTOCYTES SLIGHT; SEGMENTED NEUTROPHILS % (MAN) 86 % (42-78); TEAR DROP CELLS SLIGHT; TOTAL CELLS COUNTED 100
[2019-11-09 07:03] LABS: ALBUMIN 3.2 g/dL (3.5-5.0); ANION GAP 11 (5-19); ASPARTATE AMINO TRANSFERASE 78 U/L (17-59); BILIRUBIN,DIRECT 0.2 mg/dL (0.0-0.4); BILIRUBIN,TOTAL 0.3 mg/dL (0.2-1.3); BLOOD UREA NITROGEN 7 mg/dL (7-20); CALCIUM 7.2 mg/dL (8.4-10.2); CARBON DIOXIDE 23 mmol/L (22-30); CHLORIDE 109 mmol/L (98-107); GLUCOSE 90 mg/dL (75-110); NEONATAL BILIRUBIN RESULT 0.1 mg/dL (0.1-1.1); POTASSIUM 3.9 mmol/L (3.6-5.0); TOTAL PROTEIN 6.3 g/dL (6.3-8.2)
[2019-11-09] MEDS: ACETAMINOPHEN 325 MG TABLET PO PRN (07:14)
[2019-11-09 07:15] LABS: ALKALINE PHOSPHATASE 2531 U/L (38-126)
[2019-11-09] MEDS ORDERED: VANCOMYCIN HCL 0 MG in DEXTROSE 5%-WATER 250 ML IV NR (08:00)
--- NOTE | 2019-11-09 09:11 | PDOC PROGRESS REPORT ---
Subjective Progress Note for:: 11/09/19 Subjective:: No acute events overnight, patient is doing okay this morning still having giulia hematuria Reason For Visit: METASTATIC PROSTATE CANCER, LEUKOCYTOSIS ? CAUSE Physical Exam Vital Signs: Temp Pulse Resp BP Pulse Ox 101.0 F H 142 H 20 94/64 L 94 11/09/19 07:00 11/09/19 07:00 11/09/19 07:00 11/09/19 07:00 11/09/19 07:00 Intake & Output 11/08/19 11/09/19 11/10/19 06:59 06:59 06:59 Intake Total 2840 2785 Output Total 1350 1250 Balance 1490 1535 Weight 75.3 kg 77 kg General appearance: PRESENT: no acute distress, well-developed, well-nourished Head exam: PRESENT: atraumatic, normocephalic Eye exam: PRESENT: conjunctiva pink, EOMI, PERRLA. ABSENT: scleral icterus Ear exam: PRESENT: normal external ear exam Mouth exam: PRESENT: moist, tongue midline Neck exam: ABSENT: carotid bruit, JVD, lymphadenopathy, thyromegaly Respiratory exam: PRESENT: clear to auscultation rebecca. ABSENT: rales, rhonchi, wheezes Cardiovascular exam: PRESENT: RRR. ABSENT: diastolic murmur, rubs, systolic murmur Pulses: PRESENT: normal dorsalis pedis pul Vascular exam: PRESENT: normal capillary refill GI/Abdominal exam: PRESENT: normal bowel sounds, soft. ABSENT: distended, guarding, mass, organolmegaly, rebound, tenderness Rectal exam: PRESENT: deferred Extremities exam: PRESENT: full ROM. ABSENT: calf tenderness, clubbing, pedal edema Neurological exam: PRESENT: alert, awake, oriented to person, oriented to place, oriented to time, oriented to situation, CN II-XII grossly intact. ABSENT: motor sensory deficit Psychiatric exam: PRESENT: appropriate affect, normal mood. ABSENT: homicidal ideation, suicidal ideation Skin exam: PRESENT: dry, intact, warm. ABSENT: cyanosis, rash Results Laboratory Results: 11/09/19 05:48 11/09/19 05:48 11/09/19 11/09/19 05:48 05:48 WBC 19.4 H RBC 3.51 L Hgb 9.9 L Hct 29.8 L MCV 85 MCH 28.2 MCHC 33.2 RDW 21.6 H Plt Count 265 Seg Neutrophils % Not Reportable Sodium 142.7 Potassium 3.9 Chloride 109 H Carbon Dioxide 23 Anion Gap 11 BUN 7 Creatinine 0.56 Est GFR ( Amer) > 60 Glucose 90 Calcium 7.2 L Total Bilirubin 0.3 AST 78 H Alkaline Phosphatase 2531 H Total Protein 6.3 Albumin 3.2 L 11/03/19 11/03/19 11/03/19 15:19 15:19 15:19 Creatine Kinase 132 CK-MB (CK-2) < 0.22 Troponin I < 0.012 Cancelled NT-Pro-B Natriuret Pep 65 11/03/19 18:27 Creatine Kinase CK-MB (CK-2) Troponin I < 0.012 NT-Pro-B Natriuret Pep Impressions: Chest X-Ray 11/03/19 16:39 IMPRESSION: NO ACUTE RADIOGRAPHIC FINDING IN THE CHEST. Knee X-Ray 11/03/19 16:46 IMPRESSION: NEGATIVE STUDY OF THE STANDING LEFT AND RIGHT KNEES. NO SIGNIFICANT JOINT SPACE NARROWING OR OTHER SIGNS OF ARTHRITIS. Abdomen/Pelvis CT 11/03/19 20:07 IMPRESSION: Soft tissue projecting superiorly from the region of the prostate. Residual or recurrent carcinoma must be considered. Extensive blastic bony metastases. Other findings as described. Chest/Abdomen CTA 11/03/19 20:13 IMPRESSION: Small pericardial effusion. Other findings as described. Assessment & Plan - Diagnosis (1) Malignant neoplasm of prostate metastatic to bone Is this a current diagnosis for this admission?: Yes Plan: GNR thus far, probably as noted previously I believe the hematuria is probably going to be related to the prostate cancer and probably will continue. As long as patient is passing the urine without clots and not getting obstructed I think we have to let the chemo work. (2) Bony metastasis Is this a current diagnosis for this admission?: Yes Plan: Continue with therapy - Time Time Spent with patient: 15-24 minutes
[2019-11-09] MEDS: PREDNISONE 10 MG TABLET PO SCH (09:12)
[2019-11-09] MEDS: OXYCODONE HCL SR 10 MG TABLET PO SCH ×2 (09:12→21:43)
[2019-11-09] MEDS: CALCIUM CARBONATE 500 MG TABLET PO SCH ×2 (09:12→17:32)
[2019-11-09] MEDS: METOPROLOL TARTRATE 25 MG TABLET PO SCH ×2 (09:13→21:43)
[2019-11-09] MEDS: SITAGLIPTIN PHOSPHATE 50 MG TABLET PO SCH (09:13)
[2019-11-09] MEDS: LUBIPROSTONE 24 MCG CAPSULE PO SCH ×2 (09:13→21:41)
[2019-11-09] MEDS: POTASSIUM CHLORIDE 10 MEQ TABLET.ER PO SCH (09:13)
[2019-11-09] MEDS: LEVETIRACETAM 500 MG TABLET PO SCH ×2 (09:13→21:41)
[2019-11-09] MEDS: VANCOMYCIN HCL 1,500 MG in DEXTROSE 5%-WATER 250 ML IV SCH ×2 (09:19→21:47)
[2019-11-09] MEDS ORDERED: ERGOCALCIFEROL (VITAMIN D2) 50000 UNIT (1.25 MG) CAPSULE PO SCH (10:00)
--- NOTE | 2019-11-09 14:14 | PDOC PROGRESS REPORT ---
Subjective Progress Note for:: 11/09/19 Subjective:: Patient continue to experience intermittent episodes of hematuria. There is reported chills and elevated temperature at 101F. He denied flank pain or dysuria. No nausea, vomiting, or abdominal pain. No chest pain or difficulty with breathing. Sweating mainly on his back persist. Reason For Visit: METASTATIC PROSTATE CANCER, LEUKOCYTOSIS ? CAUSE Physical Exam Vital Signs: Temp Pulse Resp BP Pulse Ox 98.5 F 148 H 18 93/68 L 97 11/09/19 13:02 11/09/19 13:54 11/09/19 13:02 11/09/19 13:02 11/09/19 13:02 Intake & Output 11/08/19 11/09/19 11/10/19 06:59 06:59 06:59 Intake Total 2840 2785 1208 Output Total 1350 1250 200 Balance 1490 1535 1008 Weight 75.3 kg 77 kg Physical Exam: General appearance: PRESENT: mild distress - from pain Head exam: PRESENT: atraumatic, normocephalic Eye exam: PRESENT: conjunctiva pink. ABSENT: pallor, scleral icterus Ear exam: PRESENT: normal external ear exam Mouth exam: PRESENT: moist Teeth exam: PRESENT: poor dentition Respiratory exam: PRESENT: clear to auscultation rebecca Cardiovascular exam: PRESENT: Tachycardic. ABSENT: diastolic murmur, rubs, systolic murmur GI/Abdominal exam: PRESENT: normal bowel sounds, soft. ABSENT: distended, guarding, mass, organomegaly, rebound, tenderness Extremities exam: ABSENT: pedal edema Neurological exam: PRESENT: alert, awake, oriented to person, oriented to place, oriented to time, oriented to situation, CN II-XII grossly intact. ABSENT: motor sensory deficit Psychiatric exam: PRESENT: appropriate affect, normal mood. ABSENT: homicidal ideation, suicidal ideation Skin exam: PRESENT: dry, warm, other - healed wound of his craniotomy surgery Results Laboratory Results: 11/09/19 05:48 11/09/19 05:48 11/09/19 11/09/19 05:48 05:48 WBC 19.4 H RBC 3.51 L Hgb 9.9 L Hct 29.8 L MCV 85 MCH 28.2 MCHC 33.2 RDW 21.6 H Plt Count 265 Seg Neutrophils % Not Reportable Sodium 142.7 Potassium 3.9 Chloride 109 H Carbon Dioxide 23 Anion Gap 11 BUN 7 Creatinine 0.56 Est GFR ( Amer) > 60 Glucose 90 Calcium 7.2 L Total Bilirubin 0.3 AST 78 H Alkaline Phosphatase 2531 H Total Protein 6.3 Albumin 3.2 L 11/07/19 04:30 Clean Catch Midstream Urine Culture - Final 3,000 col/ml 11/03/19 11/03/19 11/03/19 15:19 15:19 15:19 Creatine Kinase 132 CK-MB (CK-2) < 0.22 Troponin I < 0.012 Cancelled NT-Pro-B Natriuret Pep 65 11/03/19 18:27 Creatine Kinase CK-MB (CK-2) Troponin I < 0.012 NT-Pro-B Natriuret Pep Impressions: Chest X-Ray 11/03/19 16:39 IMPRESSION: NO ACUTE RADIOGRAPHIC FINDING IN THE CHEST. Knee X-Ray 11/03/19 16:46 IMPRESSION: NEGATIVE STUDY OF THE STANDING LEFT AND RIGHT KNEES. NO SIGNIFICANT JOINT SPACE NARROWING OR OTHER SIGNS OF ARTHRITIS. Abdomen/Pelvis CT 11/03/19 20:07 IMPRESSION: Soft tissue projecting superiorly from the region of the prostate. Residual or recurrent carcinoma must be considered. Extensive blastic bony metastases. Other findings as described. Chest/Abdomen CTA 11/03/19 20:13 IMPRESSION: Small pericardial effusion. Other findings as described. Assessment & Plan - Diagnosis (1) Neutrophilic leukocytosis Is this a current diagnosis for this admission?: Yes (2) Hematuria, gross Is this a current diagnosis for this admission?: Yes (3) Hypocalcemia Is this a current diagnosis for this admission?: Yes (4) Pain from bone metastases Is this a current diagnosis for this admission?: Yes (5) Malignant neoplasm of prostate metastatic to bone Is this a current diagnosis for this admission?: Yes (6) Secondary hyperparathyroidism, non-renal Is this a current diagnosis for this admission?: Yes (7) Diabetes mellitus type 2 in nonobese Is this a current diagnosis for this admission?: Yes (8) HTN (hypertension) Qualifiers: Hypertension type: essential hypertension Qualified Code(s): I10 - Essential (primary) hypertension Is this a current diagnosis for this admission?: Yes (9) HLD (hyperlipidemia) Qualifiers: Hyperlipidemia type: unspecified Qualified Code(s): E78.5 - Hyperlipidemia, unspecified Is this a current diagnosis for this admission?: Yes (10) Chronic constipation Is this a current diagnosis for this admission?: Yes - Time Time Spent with patient: 35 or more minutes Level of Care: IMCU Medications reviewed and adjusted accordingly: Yes Anticipated discharge: Home with Homehealth, SNF, Hospice Within: Other - Inpatient Certification Based on my medical assessment, after consideration of the patient's comorbidities, presenting symptoms, or acuity I expect that the services needed warrant INPATIENT care.: Yes I certify that my determination is in accordance with my understanding of Medicare's requirements for reasonable and necessary INPATIENT services [42 CFR 412.3e].: Yes Medical Necessity: Significant Comorbidiites Make Outpatient Treatment Too Risky, Need Close Monitoring Due to Risk of Patient Decompensation, Need For IV Fluids, Need For Continuous Telemetry Monitoring, Need for IV Antibiotics, Risk of Complication if Not Cared For in Hospital, Risk of Diagnosis Which Will Require Inpatient Eval/Care/Monitoring Post Hospital Care: D/C Candy Dipper Documentation, D/C or Transfer Summary - Plan Summary Plan Summary: I will continue IV Invanz and Vancomycin coverage. Follow up on blood culture since it is no growth to date. In view of no urology service on inpatient,I will attempt transfer to [facility] for possible urology intervention and ongoing medical oncology services His overall prognosis remain poor.
[2019-11-09] MEDS: TAMSULOSIN HCL 0.4 MG CAP.SR.24H PO SCH (17:32)
[2019-11-09] MEDS: ERTAPENEM SODIUM 1 GM in NORMAL SALINE 50 ML IV SCH (17:32)
[2019-11-09] MEDS: OXYCODONE-ACETAMINOPHEN 5-325 MG TABLET PO PRN (17:35)
[2019-11-09] MEDS: INSULIN GLARGINE,HUM.REC.ANLOG 1,000 UNIT/10 ML VIAL SUBCUT SCH (21:40)
[2019-11-09] MEDS: SENNOSIDES/DOCUSATE 8.6-50 MG 1 EACH TABLET PO SCH (21:41)
[2019-11-10] MEDS: LEVETIRACETAM 500 MG TABLET PO SCH (09:24)
[2019-11-10] MEDS: CALCIUM CARBONATE 500 MG TABLET PO SCH ×2 (09:24→17:27)
[2019-11-10] MEDS: POTASSIUM CHLORIDE 10 MEQ TABLET.ER PO SCH (09:24)
[2019-11-10] MEDS: VANCOMYCIN HCL 1,500 MG in DEXTROSE 5%-WATER 250 ML IV SCH (09:24)
[2019-11-10] MEDS: LUBIPROSTONE 24 MCG CAPSULE PO SCH (09:24)
[2019-11-10] MEDS: SITAGLIPTIN PHOSPHATE 50 MG TABLET PO SCH (09:24)
[2019-11-10] MEDS: METOPROLOL TARTRATE 25 MG TABLET PO SCH (09:24)
[2019-11-10] MEDS: OXYCODONE HCL SR 10 MG TABLET PO SCH (09:24)
[2019-11-10] MEDS: PREDNISONE 10 MG TABLET PO SCH (09:24)
[2019-11-10] MEDS: NORMAL SALINE 1000 ML 1,000 ML IV PRN ×2 (09:24→17:30)
--- NOTE | 2019-11-10 09:37 | PDOC TRANSFER SUMMARY ---
General Admission Date/PCP: 11/05/19 12:27 KENZIE DALTON Admission Date: 11/05/19 Transfer Date: 11/10/19 Accepting Facility: [facility] Resuscitation Status: Full Code - Transfer Diagnosis (1) Neutrophilic leukocytosis Is this a current diagnosis for this admission?: Yes (2) Hematuria, gross Is this a current diagnosis for this admission?: Yes (3) Hypocalcemia Is this a current diagnosis for this admission?: Yes (4) Pain from bone metastases Is this a current diagnosis for this admission?: Yes (5) Malignant neoplasm of prostate metastatic to bone Is this a current diagnosis for this admission?: Yes (6) Secondary hyperparathyroidism, non-renal Is this a current diagnosis for this admission?: Yes (7) Diabetes mellitus type 2 in nonobese Is this a current diagnosis for this admission?: Yes (8) HTN (hypertension) Is this a current diagnosis for this admission?: Yes (9) HLD (hyperlipidemia) Is this a current diagnosis for this admission?: Yes (10) Chronic constipation Is this a current diagnosis for this admission?: Yes - Transfer Medications Home Medications: Ergocalciferol (Vitamin D2) [Drisdol 50,000 unit (1.25MG) Capsule] 50,000 unit PO MO 11/04/19 Granisetron [Sancuso] 1 patch TD ASDIR PRN 11/04/19 Insulin Glargine,Hum.rec.anlog [Lantus Insulin 100 Unit/1 ml 10 ml] 24 units SQ QHS 11/04/19 Levetiracetam [Keppra 500 mg Tablet] 500 mg PO BID 11/04/19 Linagliptin [Tradjenta] 5 mg PO DAILY 11/04/19 Olanzapine [Zyprexa 5 mg Tablet] 5 mg PO ASDIR PRN 11/04/19 Oxycodone HCl [Oxy-Ir 5 mg Tablet] 5 mg PO Q4HP PRN 11/04/19 Potassium Chloride [Klor-Con M20] 20 meq PO DAILY 11/04/19 Prednisone 10 mg PO DAILY 11/04/19 Tamsulosin HCl [Flomax 0.4 mg Cap.sr] 0.4 mg PO QPM 11/04/19 Transfer Medications: Current Medications Acetaminophen (Tylenol 325 Mg Tablet) 650 mg PO Q6HP PRN PRN Reason: TEMP ABOVE 101 Stop: 12/08/19 03:56 Last Admin: 11/09/19 07:14 Dose: 650 mg Documented by: Calcium Carbonate (Os-Daniele 500 Mg Tablet (Oyster-Shell)) 500 mg PO BID [facility] Stop: 12/04/19 13:14 Last Admin: 11/09/19 17:32 Dose: 500 mg Documented by: Ergocalciferol (Drisdol 50,000 Unit (1.25mg) Capsule) 50,000 unit PO Mo@1000 [facility] Stop: 12/09/19 09:59 Last Admin: 11/09/19 09:12 Dose: 50,000 unit Documented by: Sodium Chloride (Nacl 0.9% 1000 Ml Iv Soln) 1,000 mls @ 100 mls/hr IV CONTINUOUS PRN PRN Reason: THIS MED IS NOT "PRN" Stop: 12/03/19 22:51 Last Admin: 11/09/19 21:41 Dose: 100 mls/hr Documented by: Ertapenem 1 gm/ Sodium (Chloride) 50 mls @ 100 mls/hr IV QPM [facility] Stop: 11/14/19 17:59 Last Infusion: 11/09/19 18:13 Dose: Infused Documented by: Vancomycin HCl 1,500 mg/ (Dextrose) 250 mls @ 166.667 mls/hr IV Q12 [facility] Stop: 11/16/19 09:59 Last Admin: 11/09/19 21:47 Dose: 166 mls/hr, 166 mls/hr Documented by: Insulin Glargine (Lantus Insulin 100 Unit/1 Ml 10 Ml) 24 unit SUBCUT QHS [facility] Stop: 12/05/19 21:59 Last Admin: 11/09/19 21:40 Dose: Not Given Documented by: Levetiracetam (Keppra 500 Mg Tablet) 500 mg PO Q12 [facility] Stop: 12/04/19 21:59 Last Admin: 11/09/19 21:41 Dose: 500 mg Documented by: Lubiprostone (Amitiza 24 Mcg Capsule) 24 mcg PO Q12 [facility] Stop: 12/08/19 21:59 Last Admin: 11/09/19 21:41 Dose: 24 mcg Documented by: Metoprolol Tartrate (Lopressor 25 Mg Tablet) 25 mg PO Q12 [facility] Stop: 12/09/19 21:59 Last Admin: 11/09/19 21:43 Dose: 25 mg Documented by: Oxycodone HCl (Oxy-Ir 5 Mg Tablet) 5 mg PO Q4HP PRN PRN Reason: FOR PAIN Stop: 11/11/19 16:45 Last Admin: 11/05/19 09:12 Dose: 5 mg Documented by: Oxycodone HCl (Oxycontin Sr 10 Mg Tablet) 20 mg PO Q12 [facility] Stop: 11/14/19 21:59 Last Admin: 11/09/19 21:43 Dose: 20 mg Documented by: Oxycodone/Acetaminophen (Percocet 5-325 Mg Tablet) 2 tab PO Q4HP PRN PRN Reason: FOR PAIN Stop: 11/10/19 22:56 Last Admin: 11/09/19 17:35 Dose: 2 tab Documented by: Potassium Chloride (Klor-Con 10 Meq Tablet Er) 20 meq PO DAILY JACKELIN Stop: 12/05/19 09:59 Last Admin: 11/09/19 09:13 Dose: 20 meq Documented by: Prednisone (Deltasone 10 Mg Tablet) 10 mg PO DAILY [facility] Stop: 12/05/19 09:59 Last Admin: 11/09/19 09:12 Dose: 10 mg Documented by: Senna/Docusate Sodium (Senna Plus Tablet) 2 each PO QHS [facility]ACK[facility] Stop: 12/06/19 21:59 Last Admin: 11/09/19 21:41 Dose: 2 each Documented by: Sitagliptin Phosphate (Januvia 50 Mg Tablet) 100 mg PO DAILY [facility]ACK[facility] Stop: 12/05/19 09:59 Last Admin: 11/09/19 09:13 Dose: 100 mg Documented by: Tamsulosin HCl (Flomax 0.4 Mg Cap.Sr) 0.4 mg PO QPM [facility] Stop: 12/04/19 17:59 Last Admin: 11/09/19 17:32 Dose: 0.4 mg Documented by: - Allergies Allergies/Adverse Reactions: No Known Allergies Allergy (Verified 06/13/19 18:36) Hospital Course Hospital Course: Patient was admitted for generalized weakness and leukocytosis with concern about possible infectious process. Patient recently received Neulasta for chemo therapy induced leukopenia from his treatment of metastatic prostate cancer with bone involvement. In the process of his discharge on 11/07/2019 patient had witnessed episode of giulia hematuria that led to cancellation of discharge decision. There was concern for possible infectious process with genitourinary site for infection. Also, there was concern about possible bladder or urethral involvement by his prostate cancer. There was associated intermittent fever, sweating, and tachycardia. He was started on IV Invanz and eventually added IV Vancomycin due to persistent fever, leukocytosis, sweating and negative significant urine culture growth. His hematuria did persist. Due to lack of urology service at this facility, patient have been accepted to [facility] for further evaluation and management. Patient is currently engaged with the medical oncology team at [facility], he was seen during this hospitalization by Dr. Haines, our local medical oncologist. He will continue care with dr. Haines locally upon discharge from [facility]. Physical Exam Vital Signs: Temp Pulse Resp BP Pulse Ox 98.4 F 124 H 20 93/66 L 95 11/10/19 08:00 11/10/19 08:00 11/10/19 08:00 11/10/19 08:00 11/10/19 08:00 Intake & Output 11/09/19 11/10/19 11/11/19 06:59 06:59 06:59 Intake Total 2785 2508 Output Total 1250 550 Balance 1535 1958 Weight 77 kg 76.5 kg General appearance: PRESENT: mild distress - from pain Head exam: PRESENT: atraumatic, normocephalic Eye exam: PRESENT: conjunctiva pink. ABSENT: pallor, scleral icterus Ear exam: PRESENT: normal external ear exam Mouth exam: PRESENT: moist Teeth exam: PRESENT: poor dentition Respiratory exam: PRESENT: clear to auscultation rebecca Cardiovascular exam: PRESENT: Tachycardia. ABSENT: diastolic murmur, rubs, systolic murmur GI/Abdominal exam: PRESENT: normal bowel sounds, soft. ABSENT: distended, guarding, mass, organomegaly, rebound, tenderness Extremities exam: ABSENT: pedal edema Neurological exam: PRESENT: alert, awake, oriented to person, oriented to place, oriented to time, oriented to situation, CN II-XII grossly intact. ABSENT: motor sensory deficit Psychiatric exam: PRESENT: appropriate affect, normal mood. ABSENT: homicidal ideation, suicidal ideation Skin exam: PRESENT: dry, warm, other - healed wound of his craniotomy surgery Results Laboratory Results: 11/09/19 05:48 11/09/19 05:48 11/07/19 04:30 Clean Catch Midstream Urine Culture - Final 3,000 col/ml 11/03/19 11/03/19 11/03/19 15:19 15:19 15:19 Creatine Kinase 132 CK-MB (CK-2) < 0.22 Troponin I < 0.012 Cancelled NT-Pro-B Natriuret Pep 65 11/03/19 18:27 Creatine Kinase CK-MB (CK-2) Troponin I < 0.012 NT-Pro-B Natriuret Pep Impressions: Chest X-Ray 11/03/19 16:39 IMPRESSION: NO ACUTE RADIOGRAPHIC FINDING IN THE CHEST. Knee X-Ray 11/03/19 16:46 IMPRESSION: NEGATIVE STUDY OF THE STANDING LEFT AND RIGHT KNEES. NO SIGNIFICANT JOINT SPACE NARROWING OR OTHER SIGNS OF ARTHRITIS. Abdomen/Pelvis CT 11/03/19 20:07 IMPRESSION: Soft tissue projecting superiorly from the region of the prostate. Residual or recurrent carcinoma must be considered. Extensive blastic bony metastases. Other findings as described. Chest/Abdomen CTA 11/03/19 20:13 IMPRESSION: Small pericardial effusion. Other findings as described. Plan Discharge Plan: Transfer to [facility] for further evaluation and management. Time Spent: Greater than 30 Minutes - Coordination of care and transfer with [facility] accepting physician and evp chief exploration officer urologist.
[2019-11-10] MEDS ORDERED: NORMAL SALINE 500 ML IV ONE (11:45)
[2019-11-10] MEDS: OXYCODONE HCL IR 5 MG TABLET PO PRN (17:27)
[2019-11-10] MEDS: TAMSULOSIN HCL 0.4 MG CAP.SR.24H PO SCH (17:28)
[2019-11-10] MEDS: ERTAPENEM SODIUM 1 GM in NORMAL SALINE 50 ML IV SCH (17:28)
[2019-11-10] MEDS: OXYCODONE-ACETAMINOPHEN 5-325 MG TABLET PO PRN (20:19)
[2019-11-10 21:13] VITALS: BP 95/63
== END 2019-11-10 21:18 | disposition short-term general hospital (02) | DRG 723 ==
LOC: ER 14:06 → INTOOBSV 22:26 → EH 22:26 → 3N 11-04 00:56 → OBSVTOIN 11-05 12:27
PROVIDERS: ADMIT Internal Medicine; ATTEND Internal Medicine Geriatric Medicine
DX: C61 Malignant neoplasm of prostate (principal); C79.51 Secondary malignant neoplasm of bone; E83.51 Hypocalcemia; R31.0 Gross hematuria; E21.1 Secondary hyperparathyroidism, not elsewhere classified; E11.9 Type 2 diabetes mellitus without complications; I10 Essential (primary) hypertension; E78.5 Hyperlipidemia, unspecified; K59.09 Other constipation; E78.00 Pure hypercholesterolemia, unspecified; Z79.4 Long term (current) use of insulin; Z87.891 Personal history of nicotine dependence
CPT/HCPCS: 36415; 71046; 71275; 74177; 80048; 80053; 81001; 82306; 82550; 82553; 82962; 83735; 83880; 83970; 84100; 84484; 85025; 85610; 85730; 86850; 86900; 86901; 87040; 87086; 93005; 93010; 96374; 96375; 99285; J0610; J1170; J1335; J1650; J1815; J2405; J3370; J3490; J7030; J7040; J7060; J7512

== ENCOUNTER 2019-11-17 12:52 | Inpatient (IN) | payer MEDICARE, MEDICAID ==
[2019-11-17] MEDS ORDERED: RINGERS SOLUTION,LACTATED 1,000 ML IV PRN (13:28)
[2019-11-17] MEDS ORDERED: VANCOMYCIN HCL 0 MG in DEXTROSE 5%-WATER 250 ML IV NR (13:30)
[2019-11-17] MEDS ORDERED: HYDROMORPHONE HCL INJ/PF 2 MG/ML AMPULE IV PRN (13:33)
[2019-11-17] MEDS ORDERED: NORMAL SALINE 1000 ML 1,000 ML IV ONE (13:48)
[2019-11-17] MEDS ORDERED: METOPROLOL TARTRATE PF/INJ 5 MG/5 ML SDV IV ONE (13:49)
[2019-11-17 13:54] LABS: VENOUS BLOOD BASE EXCESS -3.4 mmol/L; VENOUS BLOOD HCO3 20.9 mmol/L (20-32); VENOUS BLOOD PCO2 36.2 mmHg (35-63); VENOUS BLOOD PH 7.38 (7.30-7.42)
--- NOTE | 2019-11-17 13:55 | ER Document Report ---
ED General - General Information source: Patient, Relative <BELA PFEIFFER - Last Filed: 11/17/19 15:57> - General TRAVEL OUTSIDE OF THE [place] IN LAST 30 DAYS: No <SIMONE PALACIOS - Last Filed: 11/20/19 15:52> - General Stated Complaint: POSSIBLE SEPTIC Time Seen by Provider: 11/17/19 12:59 - HPI Notes: I spoke with niece who is also living in the house with Jose Luis and his mother. He has 2 adult daughters who are on the way now. Family called EMS because in the last few days after his discharge from [facility] he has been pretty much not getting out of bed weak not wanting to eat and he is had progressive spasm and turning of his head and pain in the neck. They said that Dr. Haines is actively following him and had increase his Ibrahima codon from 5 every 3 hours to 10 every 3 for his overall pelvic and now neck pain. He has a history of prostate cancer status post local radiation and chemo remotely and had been receiving sessions of chemo until these last few hospitalizations which precluded those. 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 EMS report that patient was alert weak needed full assist to stretcher his glucose was within normal limits his temperature was 100.1 they gave him a Tylenol. They say his BP was "good" 115 over 70s, SPO2 within normal limits, heart rate 140. On review of the rhythm strip from EMS does appear to be SVT rate of about 150. Family and Jose Luis tell me understanding regarding the surgery and the brain radiation was that it was done with the goal to "remove any cancer from the brain". Regarding his overall plan and goals of care for malignancy interventions, they say that he is still needing "chemo" but has not been able to get that because he has been hospitalized and not well, but that he is "still supposed to be getting that." Jose Luis says that he thinks the gradual spasm and turning of his neck and the pain in his neck has been progressive likely starting before he was recently hospitalized at [facility]. He says he is currently in pain. He does not feel nauseous at this moment but is also still using the patch for his nausea. (SIMONE PALACIOS) - Related Data Allergies/Adverse Reactions: No Known Allergies Allergy (Verified 06/13/19 18:36) Past Medical History - Social History Frequency of alcohol use: None Drug Abuse: None <BELA PFEIFFER - Last Filed: 11/17/19 15:57> - General Information source: Patient, Relative, [facility] Records - Social History Smoking Status: Former Smoker Lives with: Family - His mother and his niece Family History: Reviewed & Not Pertinent, Hypertension - Past Medical History Cardiac Medical History: Reports: Hx Hypercholesterolemia, Hx Hypertension Denies: Hx Coronary Artery Disease, Hx Heart Attack Pulmonary Medical History: Reports: Hx Pneumonia - "years ago" Denies: Hx Asthma, Hx Bronchitis, Hx COPD Neurological Medical History: Reports: Other - Prostate cancer metastasis to b rain status post craniotomy right sided. Denies: Hx Cerebrovascular Accident, Hx Seizures Renal/ Medical History: Reports: Hx Benign Prostatic Hyperplasia. 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 Denies: Hx Open Heart Surgery, Hx Pacemaker - Immunizations Immunizations up to date: No Hx Diphtheria, Pertussis, Tetanus Vaccination: No <SIMONE PALACIOS - Last Filed: 11/20/19 15:52> Review of Systems - Review of Systems -: Yes All other systems reviewed and negative <BELA PFEIFFER - Last Filed: 11/17/19 15:57> - Review of Systems Constitutional: Chills, Fever, Weakness, Weight loss, Recent illness. denies: Diaphoresis EENT: denies: Eye pain, Eye discharge, Blurred vision, Tearing, Double vision, Throat pain, Difficulty swallowing, Throat swelling, Mouth pain, Mouth swelling, Dental problem Cardiovascular: denies: Chest pain, Orthopnea, Syncope, Edema Respiratory: denies: Cough, Short of breath Gastrointestinal: Abdominal pain - Says no significant change in the intensity of his usual lower pelvic and lower abdominal pain, Nausea, Poor appetite, Poor fluid intake. denies: Abdomen distended, Diarrhea, Vomiting, Blood streaked bowels, Blood in vomit, Black stools, Rectal bleeding Genitourinary: Flank pain - Bilateral flank pain is no significant change. denies: Burning, Dysuria, Hematuria Musculoskeletal: Back pain - No change in the nature or significant change in intensity of his lower back pain. denies: Joint swelling, Leg swelling, Ankle swelling Neurological/Psychological: Weakness, Headaches - Increasing pain in the neck and the head, Other - Leftward torticollis. denies: Confusion, Hallucinations, Lost consciousness, Speech impairment, Tremor <SIMONE PALACIOS A - Last Filed: 11/20/19 15:52> Physical Exam - Vital signs Interpretation: Tachycardic - General General appearance: Alert In distress: Mild <BELA PFEIFFER A - Last Filed: 11/17/19 15:57> - General General appearance: Other - He is alert appears frail, toxic, shallow quick respirations in the upper 20s, all extremities warm well perfused but heart rate 150, SVT. Blood pressure 114/70. In distress: Mild - Secondary to leftward torticollis - HEENT Head: Atraumatic, Other - No clear rhinorrhea or otorrhea, mucous membranes of anterior oropharynx. Dry no evidence of candidal mucositis, but has rigid residual foodstuffs and mucosal sloughing no airway compromise. No: Abrasions, Open wounds, Tenderness Eyes: No: Pale conjunctiva, Periorbital ecchymosis, Scleral icterus Extraocular movements intact: Yes Pupils: PERRL - No gaze palsy Nerve palsy: No Mouth/Lips: Caries Mucous membranes: Dry Neck: Other - inc tonc, fully contracted right scm w/ full neck rotation to right. - Respiratory Respiratory status: Tachypnea Chest status: Nontender. No: Ecchymosis, Pain with deep breathing, Splinting Breath sounds: Decreased air movement, Nonproductive cough, Rhonchi, Other - Cardiovascular Rhythm: Tachycardia - svt 150s - Back Back: Other - did dnot turn over to assess for skin breadown /vertebral exam as handed off to dr mccoy - Extremities General lower extremity: Other - no wounds on gross exam of anterior upper lower ext. ++mm wasting extremities as well as evidence of proximnal temporal wasting - Neurological Cognition: Inattentive - slow to respond but can keep attn to answer questions in multi-word responses that jax qualitative andappropriate. No: Confused Orientation: No: Disoriented to person, Disoriented to events Cerebellar coordination: Other - grossly hall x4 w/ intention Motor strength normal: LUE, RUE, LLE, RLE - all symm 3/5 at proximal mm groups resists gravity - Psychological Associated symptoms: Other - alert intermittently mildly anxious when HR svt 160 and having greakthrough usual pain as well as pain in neck spasm. otherwise frandy casillas cooperative, not demanding, appropriate, accompabnied by mult caring fam members. No: Aggressive, Irritable <SIMONE PALACIOS - Last Filed: 11/20/19 15:52> - Vital signs Vitals: Pulse Ox 96 11/17/19 12:52 - Cardiovascular Notes: all 4 ext wwp puylses b/l radial and dp thready (SIMONE PALACIOS) Course - Laboratory Result Diagrams: 11/17/19 13:25 11/17/19 13:25 - Diagnostic Test Radiology reviewed: Image reviewed, Reports reviewed - EKG Interpretation by Ia EKG shows normal: Sinus rhythm Rate: Tachycardia - 167 Rhythm: NSR Holbrook/QRS: No: Right axis deviation, Bifasicular block <BELA PFEIFFER - Last Filed: 11/17/19 15:57> - Laboratory Result Diagrams: 11/20/19 05:35 11/19/19 21:55 <SIMONE PALACIOS - Last Filed: 11/20/19 15:52> - Re-evaluation Re-evalutation: 11/17/19 14:55 Dr. Pfeiffer assumed care of the patient and family request. Dr. Pfeiffer doing this current dictation. I initially assessed the patient and noticed the patient was in a tachycardic rhythm. EKG computer stated SVT. However you can see distinct T waves for every beat in lead to consistent with a sinus rhythm.. I did not feel he be a good candidate for adenosine so I tried some metoprolol which lowered the patient's heart rate some but it also lowered his blood pressure therefore have not given the patient any more metoprolol at this time blood pressures been stable to proxy 100. I am bolusing the patient with fluids. Patient's lactate is normal. I think patient has a low risk for meningitis but he has been covered with antibiotics. More likely I think his neck tenderness is due to the cancer metastasizing or to some torticollis. Patient also appears dehydrated and is being treated with fluids. I have discussed transferring the patient with [facility] but they have no beds. Patient will have to remain here currently. I have discussed the patient with the ICU attending who is currently seeing the patient. Patient also has significant low calcium which I have replacing IV. Patient's respiratory status is stable. Chest x-ray is read as showing possible pneumonia. Patient has been covered with antibiotics 11/17/19 14:59 (BELA PFEIFFER) - Vital Signs Vital signs: Temp Pulse Resp BP Pulse Ox 97.5 F 68 24 H 148/92 H 100 11/20/19 12:00 11/20/19 12:00 11/20/19 15:18 11/20/19 15:18 11/20/19 15:17 - Laboratory Laboratory results interpreted by me: 11/17/19 11/17/19 11/17/19 13:25 13:25 13:25 WBC 12.1 H RBC 3.22 L Hgb 9.1 L Hct 27.6 L RDW 21.8 H Seg Neuts % (Manual) 88 H Lymphocytes % (Manual) 7 L Abs Neuts (Manual) 10.6 H PT 16.8 H Carbon Dioxide 21 L Glucose 128 H Calcium 4.8 L* AST 104 H Alkaline Phosphatase 1918 H Creatine Kinase Total Protein 6.0 L Albumin 2.9 L Free T4 Free T3 pg/mL 11/17/19 11/17/19 13:25 13:25 WBC RBC Hgb Hct RDW Seg Neuts % (Manual) Lymphocytes % (Manual) Abs Neuts (Manual) PT Carbon Dioxide Glucose Calcium AST Alkaline Phosphatase Creatine Kinase 211 H Total Protein Albumin Free T4 0.61 L Free T3 pg/mL 2.09 L Critical Care Note - Critical Care Note Total time excluding time spent on procedures (mins): 85 <BELA PFEIFFRE - Last Filed: 11/17/19 15:57> - Critical Care Note Comments: Approximately 85 minutes of critical care time were spent on this patient. This included multiple reassessments. Included multiple discussions with family. It included multiple discussions with consultants. And included reviewing imaging old records and laboratories. (BELA PFEIFFER) Discharge - Discharge Admitting Provider: Mariano (Liability Claims Manager) Unit Admitted: ICU <BELA PFEIFFER - Last Filed: 11/17/19 15:57> <SIMONE PALACIOS - Last Filed: 11/20/19 15:52> - Discharge Clinical Impression: Dehydration, Prostate cancer, Pain of metastatic malignancy, Pain from bone metastases, Weakness, Hypocalcemia Pneumonia Qualifiers: Pneumonia type: due to unspecified organism Laterality: left Lung location: lower lobe of lung Qualified Code(s): J18.9 - Pneumonia, unspecified organism Sepsis Qualifiers: Sepsis type: sepsis due to unspecified organism Sepsis acute organ dysfunction status: without acute organ dysfunction Qualified Code(s): A41.9 - Sepsis, unspecified organism Condition: Critical Disposition: ADMITTED INPATIENT
[2019-11-17 13:56] LABS: HEMATOCRIT 27.6 % (37.9-51.0); HEMOGLOBIN 9.1 g/dL (13.5-17.0); MEAN CORPUSCULAR HEMOGLOBIN 28.2 pg (27.0-33.4); MEAN CORPUSCULAR VOLUME 86 fl (80-97); PLATELET COUNT 396 10^3/uL (150-450); RED BLOOD COUNT 3.22 10^6/uL (4.35-5.55); RED CELL DISTRIBUTION WIDTH 21.8 % (11.5-14.0); WHITE BLOOD COUNT 12.1 10^3/uL (4.0-10.5)
[2019-11-17 13:59] LABS: INTERNATIONAL RATION (INR) 1.35; PROTHROMBIN TIME 16.8 SEC (11.4-15.4)
[2019-11-17 14:11] LABS: ANION GAP 17 (5-19); ASPARTATE AMINO TRANSFERASE 104 U/L (17-59); BILIRUBIN,DIRECT 0.4 mg/dL (0.0-0.4); BILIRUBIN,TOTAL 0.5 mg/dL (0.2-1.3); BLOOD UREA NITROGEN 20 mg/dL (7-20); CARBON DIOXIDE 21 mmol/L (22-30); CHLORIDE 105 mmol/L (98-107); GLUCOSE 128 mg/dL (75-110); NEONATAL BILIRUBIN RESULT 0.1 mg/dL (0.1-1.1); POTASSIUM 3.8 mmol/L (3.6-5.0)
--- NOTE | 2019-11-17 14:20 | RADIOLOGY REPORT (SQ) ---
EXAM DESCRIPTION: CHEST SINGLE VIEW COMPLETED DATE/TIME: 11/17/2019 2:08 pm REASON FOR STUDY: bed 20 sepsis protocol COMPARISON: 11/03/2019. EXAM PARAMETERS: NUMBER OF VIEWS: One view. TECHNIQUE: Single frontal radiographic view of the chest acquired. RADIATION DOSE: NA LIMITATIONS: None. FINDINGS: LUNGS AND PLEURA: Infiltrate in the retrocardiac left lower lobe. Linear atelectasis in t he left lung. Faint streaky density in the right lower lobe. MEDIASTINUM AND HILAR STRUCTURES: No masses. Contour normal. HEART AND VASCULAR STRUCTURES: Heart normal in size. Normal vasculature. BONES: No acute findings. HARDWARE: Vascular port. OTHER: No other significant finding. IMPRESSION: LEFT LOWER LOBE INFILTRATE SUSPICIOUS FOR PNEUMONIA. TECHNICAL DOCUMENTATION: JOB ID: [id number] [employer]- All Rights Reserved Reading location - IP/workstation name: [email or web address]
[2019-11-17 14:21] LABS: ALBUMIN 2.9 g/dL (3.5-5.0); ALKALINE PHOSPHATASE 1918 U/L (38-126)
[2019-11-17 14:22] LABS: CALCIUM 4.8 mg/dL (8.4-10.2)
[2019-11-17] MEDS: CEFEPIME 2 GM/D5W RTU 2 GM/50 ML RTUPB IV SCH ×2 (14:25→23:16)
[2019-11-17 14:26] LABS: ABSOLUTE LYMPHOCYTES# (MANUAL) 0.8 10^3/uL (0.5-4.7); ABSOLUTE MONOCYTES # (MANUAL) 0.6 10^3/uL (0.1-1.4); BASOPHILS % (MANUAL) 0 % (0-2); EOSINOPHILS % (MANUAL) 0 % (0-6); LYMPHOCYTES % (MANUAL) 7 % (13-45); MONOCYTES % (MANUAL) 5 % (3-13); SEGMENTED NEUTROPHILS % (MAN) 88 % (42-78); TOTAL CELLS COUNTED 100
[2019-11-17 14:28] LABS: ANISOCYTOSIS 3+; OVALOCYTES 1+; PLATELET COMMENT ADEQUATE; POLYCHROMASIA SLIGHT; TEAR DROP CELLS SLIGHT
[2019-11-17] MEDS ORDERED: VANCOMYCIN HCL INJ 1000 MG VIAL IV ONE (14:30)
[2019-11-17] MEDS ORDERED: CALCIUM GLUCONATE 1000 MG/10 ML INJ IV ONE (14:31)
--- NOTE | 2019-11-17 16:04 | RADIOLOGY REPORT (SQ) ---
EXAM DESCRIPTION: CT HEAD WITHOUT COMPLETED DATE/TIME: 11/17/2019 3:46 pm REASON FOR STUDY: malignant torticollis COMPARISON: 06/14/2019. TECHNIQUE: Axial images acquired through the brain without intravenous contrast. Images reviewed wi th bone, brain and subdural windows. Additional sagittal and coronal reconstructions were generated. Images stored on PACS. All CT scanners at this facility use dose modulation, iterative reconstruction, and/or weight based d osing when appropriate to reduce radiation dose to as low as reasonably achievable (ALARA). [facility]: Dose Right [facility]: CareDose [facility]: Dose Right [facility]: Teradose 4D [facility]: adQ RADIATION DOSE: CT Rad equipment meets quality standard of care and radiation dose reduction techniq ues were employed. CTDIvol: 53.2 mGy. DLP: 1070 mGy-cm. mGy. LIMITATIONS: None. FINDINGS: VENTRICLES: Prominent. CEREBRUM: Surgical changes in the right frontal lobe with mild encephalomalacia. No masses. No hemo rrhage. No midline shift. Areas of low density in the white matter most likely due to chronic micro -vascular ischemic change. No evidence for acute infarction. CEREBELLUM: No masses. No hemorrhage. No alteration of density. No evidence for acute infarction. EXTRAAXIAL SPACES: Mild age-related involutional change. No fluid collections. No masses. ORBITS AND GLOBE: No intra- or extraconal masses. Normal contour of globe without masses. CALVARIUM: No fracture. Previous right frontal craniotomy. PARANASAL SINUSES: Mucous membrane thickening. SOFT TISSUES: No mass or hematoma. OTHER: No other significant finding. IMPRESSION: SURGICAL CHANGES IN THE RIGHT FRONTAL LOBE WITH MILD ENCEPHALOMALACIA. MILD CHRONIC FATMATA NGES OF ATROPHY AND MICROVASCULAR ISCHEMIA. NO ACUTE PROCESS. EVIDENCE OF ACUTE STROKE: NO. TECHNICAL DOCUMENTATION: JOB ID: [id number] Quality ID # [id number]: Final reports with documentation of one or more dose reduction techniques (e.g., Au tomated exposure control, adjustment of the mA and/or kV according to patient size, use of iterative reconstruction technique) 2010 [employer]- All Rights Reserved Reading location - IP/workstation name: [email or web address]
--- NOTE | 2019-11-17 16:06 | RADIOLOGY REPORT (SQ) ---
EXAM DESCRIPTION: CT CERVICAL SPINE WITHOUT COMPLETED DATE/TIME: 11/17/2019 3:47 pm REASON FOR STUDY: malignant torticollis COMPARISON: None. TECHNIQUE: Axial images acquired through the cervical spine without intravenous contrast. Images re viewed with lung, soft tissue and bone windows. Reconstructed coronal and sagittal MPR images review ed. Images stored on PACS. All CT scanners at this facility use dose modulation, iterative reconstruction, and/or weight based d osing when appropriate to reduce radiation dose to as low as reasonably achievable (ALARA). [facility]: Dose Right [facility]: CareDose [facility]: Dose Right [facility]: Teradose 4D [facility]: [employer] RADIATION DOSE: CT Rad equipment meets quality standard of care and radiation dose reduction techniq ues were employed. CTDIvol: 20.5 mGy. DLP: 446 mGy-cm. mGy. LIMITATIONS: None. FINDINGS: ALIGNMENT: Anatomic. MINERALIZATION: Normal. VERTEBRAL BODIES: No fractures or dislocation. Multiple sclerotic lesions, particularly in the lower cervical and upper thoracic vertebrae. DISCS: No significant disc disease. FACETS, LATERAL MASSES, POSTERIOR ELEMENTS: No fractures. No dislocation. No acute findings. HARDWARE: None in the spine. VISUALIZED RIBS: No fractures. LUNG APICES AND SOFT TISSUES: No significant or acute findings. OTHER: No other significant finding. IMPRESSION: MULTIPLE SCLEROTIC LESIONS IN THE VERTEBRAE CONSISTENT WITH BONY METASTASES. NO ACUTE F INDINGS IN THE CERVICAL SPINE. TECHNICAL DOCUMENTATION: JOB ID: [id number] Quality ID # [id number]: Final reports with documentation of one or more dose reduction techniques (e.g., Au tomated exposure control, adjustment of the mA and/or kV according to patient size, use of iterative reconstruction technique) 2010 [employer]- All Rights Reserved Reading location - IP/workstation name: [email or web address]
--- NOTE | 2019-11-17 16:11 | RADIOLOGY REPORT (SQ) ---
EXAM DESCRIPTION: CTA CHEST COMPLETED DATE/TIME: 11/17/2019 3:46 pm REASON FOR STUDY: cancer/tachy COMPARISON: 11/03/2019. TECHNIQUE: CT scan of the chest performed using helical scanning technique with dynamic intravenous contrast injection. Images reviewed with lung, soft tissue and bone windows. Reconstructed coronal and sagittal MPR images reviewed. Additional 3 dimensional post-processing performed to develop Maximal Intensity Projection images (AZ P). All images stored on PACS. All CT scanners at this facility use dose modulation, iterative reconstruction, and/or weight based d osing when appropriate to reduce radiation dose to as low as reasonably achievable (ALARA). [facility]: Dose Right [facility]: CareDose [facility]: Dose Right [facility]: Teradose 4D [facility]: [employer] CONTRAST TYPE AND DOSE: contrast/concentration: Isovue 350.00 mg/ml; Total Contrast Delivered: 54.0 ml; Total Saline Delivered: 79.0 ml Contrast bolus adequate for pulmonary arteries and aorta. RENAL FUNCTION: BUN 20 creatinine 1.2. RADIATION DOSE: CT Rad equipment meets quality standard of care and radiation dose reduction techniq ues were employed. CTDIvol: 13.2 - 29.8 mGy. DLP: 1097 mGy-cm. . LIMITATIONS: None. FINDINGS: LUNGS AND PLEURA: Bilateral pleural effusions. Compressive atelectasis in the lung bases. Hazy ground-glass opacity throughout both lungs. AORTA AND GREAT VESSELS: No aneurysm. No dissection. HEART: Cardiomegaly. Small pericardial effusion. No significant coronary artery calcifications. PULMONARY ARTERIES: No emboli visualized in the main pulmonary arteries or the segmental branches. HILAR AND MEDIASTINAL STRUCTURES: No identified masses or abnormal nodes. HARDWARE: Vascular port. UPPER ABDOMEN: No significant findings. Limited exam. THYROID AND OTHER SOFT TISSUES: No masses. No adenopathy. BONES: Numerous sclerotic osseous lesions. 3D MIPS: Confirm above findings. OTHER: No other significant finding. IMPRESSION: 1. NORMAL CTA OF THE CHEST. NO PULMONARY EMBOLI. 2. CARDIOMEGALY WITH BILATERAL PLEURAL EFFUSIONS AND COMPRESSIVE ATELECTASIS IN THE LUNG BASES. HAZY GROUND-GLASS OPACITIES THROUGHOUT BOTH LUNGS LIKELY REPRESENTS EARLY PULMONARY EDEMA. 3. PERICARDIAL EFFUSION. 4. EXTENSIVE SCLEROTIC BONY METASTASES. COMMENT: Quality ID # [id number]: Final reports with documentation of one or more dose reduction techniques (e.g., Automated exposure control, adjustment of the mA and/or kV according to patient size, use of iterative reconstruction technique) TECHNICAL DOCUMENTATION: JOB ID: [id number] [employer]- All Rights Reserved Reading location - IP/workstation name: [email or web address]
[2019-11-17] MEDS ORDERED: METHOCARBAMOL INJ/PF 1000 MG/10 ML SDV IV ONE (17:00)
--- NOTE | 2019-11-17 17:01 | PDOC CONSULTATION ---
Consultation Consult Date: 11/17/19 Attending physician:: SIMONE PALACIOS Provider Consulted: MARISELA ARIZMENDI Consult reason:: Tachycardia, torticollis with metastatic brain cancer History of Present Illness Admission Date/PCP: 11/17/19 15:27 KENZIELISBET DALTON History of Present Illness: MARIAA ALCANTAR JR is a 69 year old male for whom I was asked to see while in the emergency room because of tachycardia and torticollis. 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 He was recently at [facility] because of a u rinary obstruction and further care. His last chemotherapy was October 15, 2019. According to EMS and ED records Family called EMS because in the past few days after recent discharge from [facility] he has been weak,anorexic and unable to ambulate. He developed dystonia of the right neck without known trauma. They said that Dr. Haines is actively following him and had increase his Oxycodone hours to 10mg every 3hrs for his pain and now neck pain. He has a history of widely metastatic prostate cancer status post local radiation and chemotherapy. Has not had chemotherapy with the past hospitalizations. 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 Also had adjudavant sessions of reduced dose radiation after craniectomy. All of this was done at [facility]. "EMS report that patient was alert weak needed full assist to stretcher his glucose was within normal limits his temperature was 100.1 they gave him a Tylenol. They say his BP was "good" 115 over 70s, SPO2 within normal limits, heart rate 140. On review of the rhythm strip from EMS does appear to be SVT rate of about 150. Family and Mariaa tell me understanding regarding the surgery and the brain radiation was that it was done with the goal to "remove any cancer from the brain". Regarding his overall plan and goals of care for malignancy interventions, they say that he is still needing "chemo" but has not been able to get that because he has been hospitalized and not well, but that he is "still supposed to be getting that."" In the ED "Mariaa says that he thinks the gradual spasm and turning of his neck and the pain in his neck has been progressive likely starting before he was recently hospitalized at [facility]. He says he is currently in pain. He does not feel nauseous at this moment but is also still using the patch for his nausea." I confirmed the above with a ongoing review of systems. It appears that the dystonia (torticollis) may have had an earlier insidious start but is worsened in the last 3 days. The ECG was reviewed. He actually has a sinus tachycardia. Denied worsening headache. No chest pain, no fever at home or chills/rigors. Has Medi-port in left chest present for about 1 year. Has not had any recent chemotherapy. Had only one dose of Jevtana in early October according to Dr. 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 Psychiatric Medical History: Denies: Depression Hematology: Denies: Anemia, Sickle Cell Disease Past Surgical History Past Surgical History: Reports: Orthopedic Surgery - Lt knee, Other - Cranio meron; Placement of mediport Denies: Pacemaker Social History Information Source: Relative, [facility] Records Lives with: Family - His mother and his niece Smoking Status: Former Smoker Frequency of Alcohol Use: None Hx Recreational Drug Use: No Drugs: None Hx Prescription Drug Abuse: No - Advance Directive Resuscitation Status: Full Code Surrogate healthcare decision maker:: Daughter Family History Family History: Reviewed & Not Pertinent, Hypertension Parental Family History Reviewed: No - Not pertinent Children Family History Reviewed: No Sibling(s) Family History Reviewed.: No Medication/Allergy Home Medications: Ergocalciferol (Vitamin D2) [Drisdol 50,000 unit (1.25MG) Capsule] 50,000 unit PO MO 11/04/19 Granisetron [Sancuso] 1 patch TD ASDIR PRN 11/04/19 Insulin Glargine,Hum.rec.anlog [Lantus Insulin 100 Unit/1 ml 10 ml] 24 units SQ QHS 11/04/19 Levetiracetam [Keppra 500 mg Tablet] 500 mg PO Q12 11/04/19 Linagliptin [Tradjenta] 5 mg PO DAILY 11/04/19 Oxycodone HCl [Oxy-Ir 5 mg Tablet] 10 mg PO Q3HP PRN 11/04/19 Prednisone 10 mg PO DAILY 11/04/19 Tamsulosin HCl [Flomax 0.4 mg Cap.sr] 0.4 mg PO QPM 11/04/19 Fentanyl [Duragesic 25 mcg/hr Transdermal Patch] 1 patch TOP Q3D 11/17/19 Rosuvastatin Calcium [Crestor 20 mg Tablet] 20 mg PO QHS 11/17/19 Allergies/Adverse Reactions: No Known Allergies Allergy (Verified 06/13/19 18:36) Review of Systems All systems: as per PMH Constitutional: PRESENT: anorexia, fatigue, weakness, weight loss. ABSENT: chills, fever(s) - But temperature elevation noted in ED Eyes: PRESENT: visual disturbances Ears: ABSENT: as per HPI, hearing changes, other Nose, Mouth, and Throat: ABSENT: mouth pain, sore throat Cardiovascular: ABSENT: chest pain, dyspnea on exertion, edema, palpitations Respiratory: PRESENT: cough, sputum. ABSENT: dyspnea, hemoptysis Gastrointestinal: ABSENT: abdominal pain, constipation, diarrhea, hematemesis, hematochezia, nausea, vomiting Genitourinary: PRESENT: difficulty urinating Musculoskeletal: PRESENT: back pain, joint swelling, muscle weakness Integumentary: ABSENT: diaphoresis, lesions, pruritus, rash Neurological: PRESENT: lack of coordination, weakness. ABSENT: confusion, convulsions, syncope, tingling Psychiatric: ABSENT: as per HPI, anxiety, depression, hallucinations, homidical ideation, suicidal ideation, other Endocrine: PRESENT: menstrual abnormalities. ABSENT: cold intolerance, heat intolerance, polydipsia, polyuria Hematologic/Lymphatic: ABSENT: as per HPI, easy bleeding, easy bruising, lymphadenopathy, other Physical Exam Vital Signs: Temp Pulse Resp BP Pulse Ox 100.1 F 14 96/75 L 99 11/17/19 13:03 11/17/19 14:30 11/17/19 14:30 11/17/19 14:30 Intake & Output 11/16/19 11/17/19 11/18/19 06:59 06:59 06:59 Intake Total 50 Balance 50 Weight 69 kg Physical Exam: Older appearing chronically ill acutely ill 69-year-old black male no active distress he is responsive he is awake and aware x4 General appearance: PRESENT: no acute distress, cooperative, thin, well- developed Head exam: PRESENT: other - Surgical scar noted on right. Complete alopecia Additional Comments: Bitemporal muscle wasting Eye exam: PRESENT: conjunctiva pink, EOMI, PERRLA. ABSENT: conjunctival injection, nystagmus, scleral icterus Ear exam: PRESENT: normal external ear exam Mouth exam: PRESENT: dry mucosa. ABSENT: neck supple Neck exam: PRESENT: tenderness, other - Neck is held in fixed lateral flexion to left, with active muscle spasm and tenderness on the right sternocleidomastoid and trapezial attachment to the occipital bone. There was mild improvement with osteopathic soft tissue manipulation and massage. Tender spinous process and fa scia.. ABSENT: carotid bruit, full ROM, JVD, lymphadenopathy Adult Head Front/Back Image: 1 - Strain and torticollis Respiratory exam: PRESENT: clear to auscultation rebecca, unlabored. ABSENT: accessory muscle use, retraction, rhonchi, tachypnea Cardiovascular exam: PRESENT: +S1, +S2, tachycardia Pulses: ABSENT: normal dorsalis pedis pul Vascular exam: PRESENT: normal capillary refill. ABSENT: pallor GI/Abdominal exam: PRESENT: normal bowel sounds, soft. ABSENT: ascites, distended, firm, guarding, mass, organolmegaly, rebound, rigid, tenderness Rectal exam: PRESENT: deferred Gentrourinary exam: ABSENT: indwelling catheter Extremities exam: PRESENT: pedal edema. ABSENT: joint swelling Musculoskeletal exam: ABSENT: deformity, dislocation Neurological exam: PRESENT: alert, awake, oriented to person, oriented to place, oriented to time, oriented to situation, motor sensory deficit - Weak upper and lower extremity. No localizing signs.. ABSENT: CN II-XII grossly intact - Has facial droop. Slight ptosis of left., aphasic Psychiatric exam: PRESENT: appropriate affect, normal mood Focused psych exam: ABSENT: pressured speech, psychomotor agitation, restlessness Skin exam: PRESENT: dry, intact, normal color, warm. ABSENT: cyanosis, mottled, pallor, rash Results Laboratory Results: 11/17/19 13:25 11/17/19 13:25 11/17/19 11/17/19 11/17/19 13:25 13:25 13:25 WBC 12.1 H RBC 3.22 L Hgb 9.1 L Hct 27.6 L MCV 86 MCH 28.2 MCHC 33.0 RDW 21.8 H Plt Count 396 Seg Neutrophils % Not Reportable VBG pH 7.38 VBG pCO2 36.2 VBG HCO3 20.9 VBG Base Excess -3.4 Sodium 142.6 Potassium 3.8 Chloride 105 Carbon Dioxide 21 L Anion Gap 17 BUN 20 Creatinine 1.20 Est GFR ( Amer) > 60 Glucose 128 H Lactic Acid Calcium 4.8 L* Total Bilirubin 0.5 AST 104 H Alkaline Phosphatase 1918 H Total Protein 6.0 L Albumin 2.9 L 11/17/19 13:25 WBC RBC Hgb Hct MCV MCH MCHC RDW Plt Count Seg Neutrophils % VBG pH VBG pCO2 VBG HCO3 VBG Base Excess Sodium Potassium Chloride Carbon Dioxide Anion Gap BUN Creatinine Est GFR ( Amer) Glucose Lactic Acid 1.1 Calcium Total Bilirubin AST Alkaline Phosphatase Total Protein Albumin 11/17/19 13:25 Troponin I 0.051 Impressions: Chest X-Ray 11/17/19 12:54 IMPRESSION: LEFT LOWER LOBE INFILTRATE SUSPICIOUS FOR PNEUMONIA. Status: Image reviewed by me Assessment & Plan - Diagnosis (1) Sepsis with acute organ dysfunction without septic shock Qualifiers: Sepsis type: sepsis due to unspecified organism Severe sepsis acute organ dysfunction type: acute renal failure Acute renal failure type: with other specified pathological lesion Qualified Code(s): A41.9 - Sepsis, unspecified organism; R65.20 - Severe sepsis without septic shock; N17.9 - Acute kidney failure, unspecified Is this a current diagnosis for this admission?: Yes (2) Acute kidney injury Is this a current diagnosis for this admission?: Yes (3) Sepsis Qualifiers: Sepsis type: sepsis due to unspecified organism Sepsis acute organ dysfunction status: without acute organ dysfunction Qualified Code(s): A41.9 - Sepsis, unspecified organism Is this a current diagnosis for this admission?: Yes Plan: Cultures, broad spectrum antibiotics (4) Sinus tachycardia Is this a current diagnosis for this admission?: Yes Plan: Suspect dehydration. Bp is low normal, check cortisol and sepsis is suspected. Volume repletion, check TSH (5) Torticollis, acquired Is this a current diagnosis for this admission?: Yes Plan: Concern for malignancy related cervical disease (6) Metastasis to brain Is this a current diagnosis for this admission?: Yes (7) Pain due to malignant neoplasm metastatic to bone Is this a current diagnosis for this admission?: Yes (8) Anorexia Is this a current diagnosis for this admission?: Yes Plan: From malignancy (9) Moderate protein-energy malnutrition Is this a current diagnosis for this admission?: Yes Plan: May need tube feedings (10) Prostate cancer metastatic to bone Is this a current diagnosis for this admission?: Yes - Time Time Spent: 50 to 70 Minutes - 72 minutes Medications reviewed and adjusted accordingly: Yes - Inpatient Certification Based on my medical assessment, after consideration of the patient's comorbidities, presenting symptoms, or acuity I expect that the services needed warrant INPATIENT care.: Yes I certify that my determination is in accordance with my understanding of Medicare's requirements for reasonable and necessary INPATIENT services [42 CFR 412.3e].: Yes Medical Necessity: Failure to Improve With Outpatient Therapy, Significant Comorbidiites Make Outpatient Treatment Too Risky, Need Close Monitoring Due to Risk of Patient Decompensation, Need For IV Fluids, Need for Pain Control, Need for IV Antibiotics, Risk of Complication if Not Cared For in Hospital - Plan Summary Plan Summary: In evaluation of this patient I am concerned about several issues. His tachycardia may be related to dehydration and the possibility of sepsis given his low normal blood pressure. We have placed him on broad-spectrum antibiotics and we may need to consider antifungals as well. His chest x-ray is read as possible pneumonia and he has had a cough with sputum for a number of days. I am also concerned that the metastatic disease to the spine and brain may be contributing to the torticollis. I am concerned that there is erosion there may be nerve impingement as well. He had some relief with soft tissue massage and gentle soft tissue manipulation in the emergency room of the neck but his head is held in fixed left flexion and rotational torsion. He does appear to have ptosis and a slight droop in his mouth which appears to be chronic in nature. Given the situation I have ordered a CT scan of the chest to rule out PE given the tachycardia. I have also ordered a CT of the neck and the brain to rule out extension and worsening of an already present metastatic process. Disposition will be dependent on the CT scan and he may need transfer if there is any neurosurgical pathology or situation for which we would not be able to treat. I personally reviewed the CAT scan and also the radiology reports. There is wid enedelia metastatic bony metastasis to the cervical spine which may be contributing to the torticollis. Given his persistent tachycardia, dehydration, and acute renal failure he meets criteria for organ dysfunction associated with sepsis. Source is still under investigation but may be urine. Will place a Amanda because of his renal failure.
[2019-11-17 18:15] LABS: APPEARANCE,URINE SLIGHTLY-CLOUDY; BILIRUBIN,URINE NEGATIVE (NEGATIVE); COLOR,URINE YELLOW; GLUCOSE, URINE NEGATIVE (NEGATIVE); KETONES,URINE 20 mg/dL (NEGATIVE); PROTEIN,URINE 100 mg/dL (NEGATIVE); URINE SPECIFIC GRAVITY 1.026; UROBILINOGEN,URINE NEGATIVE mg/dL (<2.0)
[2019-11-17] MEDS: WATER FOR INJECTION,STERILE 1,000 ML with SODIUM BICARBONATE 125 MEQ IV PRN ×2 (18:25)
[2019-11-17 18:27] LABS: PHOSPHORUS 2.6 mg/dL (2.5-4.5)
[2019-11-17 18:45] LABS: FREE T3 2.09 pg/mL (2.77-5.27); FREE T4 (FREE THYROXINE) 0.61 ng/dL (0.78-2.19)
[2019-11-17 18:58] LABS: THYROID STIMULATING HORMONE 2.26 uIU/mL (0.47-4.68)
[2019-11-17] MEDS: HEPARIN SOD (PORCINE) 5,000 UNIT/ML 1 ML VIAL SUBCUT SCH (22:30)
--- NOTE | 2019-11-17 22:41 | EKG REPORT ---
SEVERITY:- ABNORMAL ECG - ECTOPIC ATRIAL TACHYCARDIA VS SUPRAVENTRICULAR TACHYCARDIA LONG RP TYPE LOW VOLTAGE IN FRONTAL LEADS : Confirmed by: Massiel Marcum 17-Nov-2019 22:40:43
[2019-11-17] MEDS ORDERED: CEFEPIME 2 GM/D5W RTU 2 GM/50 ML RTUPB IV ONE (22:59)
[2019-11-17 23:23] LABS: APPEARANCE,URINE SLIGHTLY-CLOUDY; BILIRUBIN,URINE NEGATIVE (NEGATIVE); COLOR,URINE YELLOW; GLUCOSE, URINE NEGATIVE (NEGATIVE); KETONES,URINE TRACE mg/dL (NEGATIVE); LEUKOCYTE ESTERASE,URINE NEGATIVE (NEGATIVE); NITRITE,URINE NEGATIVE (NEGATIVE); PROTEIN,URINE 30 mg/dL (NEGATIVE); URINE SPECIFIC GRAVITY 1.024; UROBILINOGEN,URINE NEGATIVE mg/dL (<2.0)
[2019-11-17] MEDS ORDERED: FENTANYL 25 MCG/HR PATCH.TD72 TD ONE (23:30)
[2019-11-17 23:42] LABS: ANION GAP 9 (5-19); BLOOD UREA NITROGEN 17 mg/dL (7-20); CARBON DIOXIDE 28 mmol/L (22-30); CHLORIDE 103 mmol/L (98-107); GLUCOSE 132 mg/dL (75-110); PHOSPHORUS 2.4 mg/dL (2.5-4.5); POTASSIUM 3.3 mmol/L (3.6-5.0)
[2019-11-17 23:48] LABS: CALCIUM 4.8 mg/dL (8.4-10.2)
[2019-11-18] MEDS ORDERED: PHOSPHORUS #1 250 MG TABLET PO ONE (00:08)
[2019-11-18] MEDS ORDERED: ALBUMIN HUMAN 500 ML IV ONE ×2 (00:11→00:52)
[2019-11-18] MEDS ORDERED: CALCIUM CHLORIDE 10% PF/INJ 1000 MG/10 ML SDV IV SCH (00:15)
[2019-11-18] MEDS ORDERED: CALCIUM CHLORIDE 10% PF/INJ 1000 MG/10 ML SDV IV PRN (00:53)
[2019-11-18] MEDS ORDERED: CALCIUM CHLORIDE IV ONE (01:00)
[2019-11-18] MEDS ORDERED: NORMAL SALINE IV ONE (01:00)
[2019-11-18] MEDS ORDERED: CALCIUM GLUCONATE 1000 MG/10 ML INJ IV ONE ×2 (01:37→01:57)
[2019-11-18] MEDS: HEPARIN SOD (PORCINE) 5,000 UNIT/ML 1 ML VIAL SUBCUT SCH ×3 (01:44→17:27)
[2019-11-18 01:47] LABS: A TYPE INFLUENZA AG NEGATIVE (NEGATIVE); B INFLUENZA AG NEGATIVE (NEGATIVE)
[2019-11-18] MEDS: POTASSI CL 20 MEQ/50 ML RIDER 20 MEQ/50 ML RTUPB IV SCH ×2 (01:47→03:19)
[2019-11-18] MEDS ORDERED: CALCIUM GLUCONATE 1000 MG/10 ML INJ IV PRN (02:04)
[2019-11-18] MEDS ORDERED: WATER IV ONE (02:15)
[2019-11-18] MEDS ORDERED: CALCIUM GLUCONATE IV ONE (02:15)
[2019-11-18] MEDS ORDERED: DEXTROSE 5% IV ONE (02:15)
[2019-11-18] MEDS ORDERED: RINGERS SOLUTION,LACTATED 500 ML IV ONE (02:50)
[2019-11-18] MEDS: OXYCODONE HCL IR 5 MG TABLET PO PRN ×3 (03:17→21:12)
[2019-11-18] MEDS ORDERED: METOPROLOL TARTRATE PF/INJ 5 MG/5 ML SDV IV ONE ×4 (03:37→13:30)
[2019-11-18] MEDS ORDERED: METOPROLOL TARTRATE 25 MG TABLET PO ONE (04:28)
[2019-11-18] MEDS: WATER FOR INJECTION,STERILE 1,000 ML with SODIUM BICARBONATE 125 MEQ IV PRN ×2 (05:10)
[2019-11-18 06:11] LABS: ALBUMIN 2.9 g/dL (3.5-5.0); ALKALINE PHOSPHATASE 1483 U/L (38-126); ANION GAP 8 (5-19); ASPARTATE AMINO TRANSFERASE 76 U/L (17-59); BILIRUBIN,DIRECT 0.3 mg/dL (0.0-0.4); BILIRUBIN,TOTAL 0.4 mg/dL (0.2-1.3); BLOOD UREA NITROGEN 14 mg/dL (7-20); CARBON DIOXIDE 27 mmol/L (22-30); CHLORIDE 102 mmol/L (98-107); CREATINE KINASE 182 U/L (55-170); GLUCOSE 168 mg/dL (75-110); HEMATOCRIT 24.5 % (37.9-51.0); HEMOGLOBIN 8.1 g/dL (13.5-17.0); MEAN CORPUSCULAR HEMOGLOBIN 27.9 pg (27.0-33.4); MEAN CORPUSCULAR HGB CONC 33.1 g/dL (32.0-36.0); MEAN CORPUSCULAR VOLUME 84 fl (80-97); PHOSPHORUS 2.4 mg/dL (2.5-4.5); PLATELET COUNT 343 10^3/uL (150-450); POTASSIUM 3.8 mmol/L (3.6-5.0); RED BLOOD COUNT 2.91 10^6/uL (4.35-5.55); RED CELL DISTRIBUTION WIDTH 21.6 % (11.5-14.0); TOTAL PROTEIN 5.6 g/dL (6.3-8.2); WHITE BLOOD COUNT 10.8 10^3/uL (4.0-10.5)
[2019-11-18 06:20] LABS: CALCIUM 5.5 mg/dL (8.4-10.2)
[2019-11-18] MEDS ORDERED: GLUCAGON,HUMAN RECOMB 1 MG INJ IM PRN (06:44)
[2019-11-18] MEDS ORDERED: DEXTROSE 50%-WATER 25 GM/50 ML DISP.SYRIN IV PRN ×2 (06:44)
[2019-11-18] MEDS ORDERED: DEXTROSE 40% GEL 15 GM TUBE PO PRN ×2 (06:44)
[2019-11-18 06:52] LABS: ABSOLUTE LYMPHOCYTES# (MANUAL) 0.6 10^3/uL (0.5-4.7); ABSOLUTE MONOCYTES # (MANUAL) 0.4 10^3/uL (0.1-1.4); BASOPHILS % (MANUAL) 0 % (0-2); EOSINOPHILS % (MANUAL) 3 % (0-6); LYMPHOCYTES % (MANUAL) 6 % (13-45); MONOCYTES % (MANUAL) 4 % (3-13); SEGMENTED NEUTROPHILS % (MAN) 87 % (42-78); TOTAL CELLS COUNTED 100
[2019-11-18 07:00] LABS: ANISOCYTOSIS 3+; OVALOCYTES 1+; PLATELET COMMENT ADEQUATE; POIKILOCYTOSIS 1+; TEAR DROP CELLS SLIGHT
[2019-11-18 07:08] LABS: PROTHROMBIN TIME 17.3 SEC (11.4-15.4)
[2019-11-18 07:09] LABS: PARTIAL THROMBOPLASTIN TIME 43.2 SEC (23.5-35.8)
[2019-11-18] MEDS: INSULIN REG, HUMAN 100 UNIT/ML 3 ML VIAL (PYX) SUBCUT SCH ×4 (08:01→21:12)
--- NOTE | 2019-11-18 08:38 | RADIOLOGY REPORT (SQ) ---
EXAM DESCRIPTION: CHEST SINGLE VIEW COMPLETED DATE/TIME: 11/18/2019 6:27 am REASON FOR STUDY: effusion COMPARISON: AP view of the chest from 11/17/2019. EXAM PARAMETERS: NUMBER OF VIEWS: One view. TECHNIQUE: An AP view of the chest was obtained. RADIATION DOSE: NA LIMITATIONS: None. FINDINGS: LUNGS AND PLEURA: Low inspiratory lung volumes. The left retrocardiac opacity associated with air bronchograms that obscures the contour of the descending thoracic aorta and the medial aspec t of the left hemidiaphragm is unchanged. The left lateral costophrenic sulcus remains blunted. The re is no pneumothorax. MEDIASTINUM AND HILAR STRUCTURES: Stable mediastinal and hilar contours. HEART AND VASCULAR STRUCTURES: Stable cardiac silhouette. BONES: No acute findings. HARDWARE: The tip of the left IJ port projects within the SVC. OTHER: No other finding. IMPRESSION: Unchanged left retrocardiac opacity associated with air bronchograms. TECHNICAL DOCUMENTATION: JOB ID: [id number] [employer]- All Rights Reserved Reading location - IP/workstation name: [email or web address]
[2019-11-18] MEDS ORDERED: CYCLOBENZAPRINE HCL 10 MG TABLET PO PRN (09:27)
--- NOTE | 2019-11-18 09:35 | PDOC CONSULTATION ---
Consultation Consult Date: 11/18/19 Attending physician:: MARISELA ARIZMENDI Provider Consulted: ASAD MICHELLE Consult reason:: Stage IV prostate cancer History of Present Illness Admission Date/PCP: 11/17/19 15:27 KENZIE DALTON Patient complains of: Stage IV prostate cancer History of Present Illness: MARIAA ALCANTAR JR is a 69 year old male with known history of stage IV prostate cancer, please see my last note from last admission for full history, but briefly patient was on chemotherapy Jevtana, first cycle given by Dr. Maddie Castro, unfortunately after that cycle patient came in with dehydration and weakness and hematuria. Ultimately the hematuria continued and he was transferred to [facility]. We were awaiting records and I had not had a chance to evaluate the records yet, but currently patient notes that the hematuria is fully resolved. He was a week at home lethargic and thus brought into the ER, and was brought to the ICU because of tachycardia and weakness. 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 Denies: Seizures Malignancy Medical History: Reports: Pancreatic Cancer GI Medical History: Denies: Hepatitis, Hiatal Hernia Musculoskeltal Medical History: Reports: Arthritis - Shoulder Psychiatric Medical History: Denies: Depression Hematology: Denies: Anemia, Sickle Cell Disease Past Surgical History Past Surgical History: Reports: Orthopedic Surgery - Lt knee, Other - Craniotomy; Placement of mediport Denies: Pacemaker Social History Lives with: Family - His mother and his niece Smoking Status: Former Smoker Frequency of Alcohol Use: None Hx Recreational Drug Use: No Drugs: None Hx Prescription Drug Abuse: No - Advance Directive Resuscitation Status: Full Code Family History Family History: Reviewed & Not Pertinent, Hypertension Parental Family History Reviewed: Yes Children Family History Reviewed: Yes Sibling(s) Family History Reviewed.: Yes Medication/Allergy Home Medications: Ergocalciferol (Vitamin D2) [Drisdol 50,000 unit (1.25MG) Capsule] 50,000 unit PO MO 11/04/19 Granisetron [Sancuso] 1 patch TD ASDIR PRN 11/04/19 Insulin Glargine,Hum.rec.anlog [Lantus Insulin 100 Unit/1 ml 10 ml] 24 units SQ QHS 11/04/19 Levetiracetam [Keppra 500 mg Tablet] 500 mg PO Q12 11/04/19 Linagliptin [Tradjenta] 5 mg PO DAILY 11/04/19 Oxycodone HCl [Oxy-Ir 5 mg Tablet] 10 mg PO Q3HP PRN 11/04/19 Prednisone 10 mg PO DAILY 11/04/19 Tamsulosin HCl [Flomax 0.4 mg Cap.sr] 0.4 mg PO QPM 11/04/19 Fentanyl [Duragesic 25 mcg/hr Transdermal Patch] 1 patch TOP Q3D 11/17/19 Rosuvastatin Calcium [Crestor 20 mg Tablet] 20 mg PO QHS 11/17/19 Allergies/Adverse Reactions: No Known Allergies Allergy (Verified 06/13/19 18:36) Review of Systems Constitutional: ABSENT: chills, fever(s), headache(s), weight gain, weight loss Eyes: ABSENT: visual disturbances Ears: ABSENT: hearing changes Cardiovascular: ABSENT: chest pain, dyspnea on exertion, edema, orthropnea, palpitations Respiratory: ABSENT: cough, hemoptysis Gastrointestinal: ABSENT: abdominal pain, constipation, diarrhea, hematemesis, hematochezia, nausea, vomiting Genitourinary: ABSENT: dysuria, hematuria Musculoskeletal: ABSENT: joint swelling Integumentary: ABSENT: rash, wounds Neurological: ABSENT: abnormal gait, abnormal speech, confusion, dizziness, focal weakness, syncope Psychiatric: ABSENT: anxiety, depression, homidical ideation, suicidal ideation Endocrine: ABSENT: cold intolerance, heat intolerance, polydipsia, polyuria Hematologic/Lymphatic: ABSENT: easy bleeding, easy bruising Physical Exam Vital Signs: Temp Pulse Resp BP Pulse Ox 100.9 F H 141 H 18 117/84 100 11/18/19 08:00 11/18/19 08:00 11/18/19 08:00 11/18/19 08:00 11/18/19 08:00 Intake & Output 11/17/19 11/18/19 11/19/19 06:59 06:59 06:59 Intake Total 3188 Output Total 1125 275 Balance 2063 -275 Weight 70.2 kg General appearance: PRESENT: no acute distress, well-developed, well-nourished Head exam: PRESENT: atraumatic, normocephalic Eye exam: PRESENT: conjunctiva pink, EOMI, PERRLA. ABSENT: scleral icterus Ear exam: PRESENT: normal external ear exam Mouth exam: PRESENT: moist, tongue midline Neck exam: ABSENT: carotid bruit, JVD, lymphadenopathy, thyromegaly Respiratory exam: PRESENT: clear to auscultation rebecca. ABSENT: rales, rhonchi, wheezes Cardiovascular exam: PRESENT: RRR. ABSENT: diastolic murmur, rubs, systolic murmur Pulses: PRESENT: normal dorsalis pedis pul Vascular exam: PRESENT: normal capillary refill GI/Abdominal exam: PRESENT: normal bowel sounds, soft. ABSENT: distended, guarding, mass, organolmegaly, rebound, tenderness Rectal exam: PRESENT: deferred Extremities exam: PRESENT: full ROM. ABSENT: calf tenderness, clubbing, pedal edema Neurological exam: PRESENT: alert, awake, oriented to person, oriented to place, oriented to time, oriented to situation, CN II-XII grossly intact. ABSENT: motor sensory deficit Psychiatric exam: PRESENT: appropriate affect, normal mood. ABSENT: homicidal ideation, suicidal ideation Skin exam: PRESENT: dry, intact, warm. ABSENT: cyanosis, rash Results Laboratory Results: 11/18/19 05:40 11/18/19 05:40 11/17/19 11/17/19 11/17/19 13:25 13:25 13:25 WBC 12.1 H RBC 3.22 L Hgb 9.1 L Hct 27.6 L MCV 86 MCH 28.2 MCHC 33.0 RDW 21.8 H Plt Count 396 Seg Neutrophils % Not Reportable VBG pH 7.38 VBG pCO2 36.2 VBG HCO3 20.9 VBG Base Excess -3.4 Sodium 142.6 Potassium 3.8 Chloride 105 Carbon Dioxide 21 L Anion Gap 17 BUN 20 Creatinine 1.20 Est GFR ( Amer) > 60 Glucose 128 H Lactic Acid Calcium 4.8 L* Ionized Calcium Yola Phosphorus Magnesium Total Bilirubin 0.5 AST 104 H Alkaline Phosphatase 1918 H Ammonia Total Protein 6.0 L Albumin 2.9 L TSH Free T4 Free T3 pg/mL Urine Color Urine Appearance Urine pH Ur Specific [place] Urine Protein Urine Glucose (UA) Urine Ketones Urine Blood Urine Nitrite Ur Leukocyte Esterase Urine WBC (Auto) Urine RBC (Auto) 11/17/19 11/17/19 11/17/19 13:25 13:25 13:25 WBC RBC Hgb Hct MCV MCH MCHC RDW Plt Count Seg Neutrophils % VBG pH VBG pCO2 VBG HCO3 VBG Base Excess Sodium Potassium Chloride Carbon Dioxide Anion Gap BUN Creatinine Est GFR ( Amer) Glucose Lactic Acid 1.1 Calcium Ionized Calcium Yola Phosphorus 2.6 Magnesium 2.1 Total Bilirubin AST Alkaline Phosphatase Ammonia Total Protein Albumin TSH 2.26 Free T4 0.61 L Free T3 pg/mL 2.09 L Urine Color Urine Appearance Urine pH Ur Specific [place] Urine Protein Urine Glucose (UA) Urine Ketones Urine Blood Urine Nitrite Ur Leukocyte Esterase Urine WBC (Auto) Urine RBC (Auto) 11/17/19 11/17/19 11/17/19 16:22 17:35 18:30 WBC RBC Hgb Hct MCV MCH MCHC RDW Plt Count Seg Neutrophils % VBG pH VBG pCO2 VBG HCO3 VBG Base Excess Sodium Potassium Chloride Carbon Dioxide Anion Gap BUN Creatinine Est GFR ( Amer) Glucose Lactic Acid 0.9 Calcium Ionized Calcium Yola Phosphorus Magnesium Total Bilirubin AST Alkaline Phosphatase Ammonia < 8.7 L Total Protein Albumin TSH Free T4 Free T3 pg/mL Urine Color YELLOW Urine Appearance SLIGHTLY-CLOUDY Urine pH 5.0 Ur Specific [place] 1.026 Urine Protein 100 H Urine Glucose (UA) NEGATIVE Urine Ketones 20 H Urine Blood MODERATE H Urine Nitrite Ur Leukocyte Esterase Urine WBC (Auto) Urine RBC (Auto) 8 11/17/19 11/17/19 11/17/19 21:27 23:06 23:06 WBC RBC Hgb Hct MCV MCH MCHC RDW Plt Count Seg Neutrophils % VBG pH VBG pCO2 VBG HCO3 VBG Base Excess Sodium 140.1 Potassium 3.3 L Chloride 103 Carbon Dioxide 28 Anion Gap 9 BUN 17 Creatinine 1.02 Est GFR ( Amer) > 60 Glucose 132 H Lactic Acid 1.3 Calcium 4.8 L* Ionized Calcium Yola Phosphorus 2.4 L Magnesium Total Bilirubin AST Alkaline Phosphatase Ammonia Total Protein Albumin TSH Free T4 Free T3 pg/mL Urine Color YELLOW Urine Appearance SLIGHTLY-CLOUDY Urine pH 6.0 Ur Specific [place] 1.024 Urine Protein 30 H Urine Glucose (UA) NEGATIVE Urine Ketones TRACE H Urine Blood MODERATE H Urine Nitrite NEGATIVE Ur Leukocyte Esterase NEGATIVE Urine WBC (Auto) 8 Urine RBC (Auto) 8 11/17/19 11/18/19 11/18/19 23:14 05:40 05:40 WBC 10.8 H RBC 2.91 L Hgb 8.1 L Hct 24.5 L MCV 84 MCH 27.9 MCHC 33.1 RDW 21.6 H Plt Count 343 Seg Neutrophils % Not Reportable VBG pH VBG pCO2 VBG HCO3 VBG Base Excess Sodium 137.3 Potassium 3.8 Chloride 102 Carbon Dioxide 27 Anion Gap 8 BUN 14 Creatinine 0.89 Est GFR ( Amer) > 60 Glucose 168 H Lactic Acid Calcium 5.5 L* Ionized Calcium Yola 0.67 L Phosphorus 2.4 L Magnesium 1.8 Total Bilirubin 0.4 AST 76 H Alkaline Phosphatase 1483 H Ammonia Total Protein 5.6 L Albumin 2.9 L TSH Free T4 Free T3 pg/mL Urine Color Urine Appearance Urine pH Ur Specific [place] Urine Protein Urine Glucose (UA) Urine Ketones Urine Blood Urine Nitrite Ur Leukocyte Esterase Urine WBC (Auto) Urine RBC (Auto) 11/17/19 11/17/19 11/17/19 13:25 13:25 13:25 Creatine Kinase 211 H CK-MB (CK-2) 0.43 Troponin I 0.051 NT-Pro-B Natriuret Pep 11/17/19 11/18/19 23:06 05:40 Creatine Kinase 182 H CK-MB (CK-2) Troponin I NT-Pro-B Natriuret Pep 317 H Impressions: Cervical Spine CT 11/17/19 00:00 IMPRESSION: MULTIPLE SCLEROTIC LESIONS IN THE VERTEBRAE CONSISTENT WITH BONY METASTASES. NO ACUTE FINDINGS IN THE CERVICAL SPINE. Head CT 11/17/19 00:00 IMPRESSION: SURGICAL CHANGES IN THE RIGHT FRONTAL LOBE WITH MILD ENCEPHALOMALACIA. MILD CHRONIC CHANGES OF ATROPHY AND MICROVASCULAR ISCHEMIA. NO ACUTE PROCESS. EVIDENCE OF ACUTE STROKE: NO. Chest/Abdomen CTA 11/17/19 14:00 IMPRESSION: 1. NORMAL CTA OF THE CHEST. NO PULMONARY EMBOLI. 2. CARDIOMEGALY WITH BILATERAL PLEURAL EFFUSIONS AND COMPRESSIVE ATELECTASIS IN THE LUNG BASES. HAZY GROUND-GLASS OPACITIES THROUGHOUT BOTH LUNGS LIKELY REPRESENTS EARLY PULMONARY EDEMA. 3. PERICARDIAL EFFUSION. 4. EXTENSIVE SCLEROTIC BONY METASTASES. Chest X-Ray 11/18/19 06:00 IMPRESSION: Unchanged left retrocardiac opacity associated with air bronchograms. Assessment & Plan - Diagnosis (1) Metastatic adenocarcinoma to prostate Is this a current diagnosis for this admission?: Yes Plan: We will follow, ultimately would like to try to get more treatment as an outpatient but he has been severely weakened over the last 2 admissions he may require some sort of a rehab stay now. Will follow.
[2019-11-18] MEDS ORDERED: LEVETIRACETAM 500 MG TABLET PO SCH (10:00)
[2019-11-18] MEDS ORDERED: VANCOMYCIN HCL 0 MG in DEXTROSE 5%-WATER 250 ML IV NR (10:15)
[2019-11-18] MEDS: ALBUMIN HUMAN 12.5 GM/50 ML RTUINJ IV SCH ×4 (10:25→13:34)
[2019-11-18] MEDS: METOPROLOL TARTRATE 50 MG TABLET PO SCH ×2 (10:26→21:13)
[2019-11-18] MEDS: PREDNISONE 10 MG TABLET PO SCH (10:26)
[2019-11-18] MEDS: LEVETIRACETAM 500 MG TABLET PO SCH ×2 (10:26→21:14)
[2019-11-18] MEDS: FENTANYL 25 MCG/HR PATCH.TD72 TOP SCH ×2 (10:26→11:00)
[2019-11-18] MEDS ORDERED: DEXAMETHASONE SOD PHOS INJ 10 MG/1 ML VIAL IM ONE (11:00)
[2019-11-18] MEDS: CEFEPIME 1 GM/D5W RTU 1 GM/50 ML RTUPB IV SCH ×2 (11:11→17:27)
--- NOTE | 2019-11-18 11:29 | EKG REPORT ---
SEVERITY:- ABNORMAL ECG - SUPRAVENTRICULAR TACHYCARDIA CONSIDER AVNRT LONG RP TYPE : Confirmed by: Massiel Marcum 18-Nov-2019 11:29:11
[2019-11-18] MEDS: VANCOMYCIN HCL 1,000 MG in DEXTROSE 5%-WATER 250 ML IV SCH ×2 (11:56→21:14)
[2019-11-18] MEDS ORDERED: RINGERS SOLUTION,LACTATED 1,000 ML IV ONE (13:12)
[2019-11-18] MEDS: HYDROCORTISONE SOD SUCCINATE INJ/PF 100 MG/2 ML SDV IV SCH ×2 (13:34→21:14)
[2019-11-18] MEDS: TAMSULOSIN HCL 0.4 MG CAP.SR.24H PO SCH (17:27)
[2019-11-18] MEDS: RINGERS SOLUTION,LACTATED 1,000 ML IV PRN (17:45)
[2019-11-18] MEDS ORDERED: TAMSULOSIN HCL 0.4 MG CAP.SR.24H PO SCH (18:00)
--- NOTE | 2019-11-18 18:47 | PDOC CRITICAL CARE PROG REPORT ---
General Date:: 11/18/19 ICU Day:: 2 Hospital Day:: 2 Resuscitation Status: Full Code Medical Power of [employer] Supervisor: Daughter Events in the past 12 to 24 Hours:: 11.18.2019: Patient's tachycardia has improved with beta-jennifer therapy and IV fluids. He discloses no pain no abdominal discomfort no headache. His neck spasm has improved slightly but not dramatically. Review of systems relevant to events:: 11.18.2019: Patient had bedside echocardiogram which showed a minimal pleural effusion. Notably his IVC was definitively underfilled and had significant respirophasic changes when seen. - Medications: Medications reviewed and adjusted accordingly: Yes Vasopressors:: None Physical Exam Vital Signs: Temp Pulse Resp BP Pulse Ox 100.9 F H 141 H 18 117/84 100 11/18/19 08:00 11/18/19 08:00 11/18/19 08:00 11/18/19 08:00 11/18/19 08:00 Intake & Output 11/17/19 11/18/19 11/19/19 06:59 06:59 06:59 Intake Total 3188 Output Total 1125 275 Balance 2063 -275 Weight 70.2 kg Weight/Height Weight 70.2 kg Height 6 ft General appearance: PRESENT: no acute distress, cooperative, well-developed, well-nourished Exam: Pleasant elderly nontoxic but ill and chronically ill-appearing 69-year-old black male no active distress he is awake alert aware and oriented Head exam: PRESENT: other - Lilliam. Surgical scar noted right temporal region Eye exam: PRESENT: PERRLA. ABSENT: nystagmus Mouth exam: PRESENT: dry mucosa. ABSENT: neck supple Teeth exam: PRESENT: poor dentation Neck exam: PRESENT: tenderness, other - Patient still has left rotating torticollis. There is less spasm on examination and his head is able to have some degree of rotation right. No palpable adenopathy noted. ABSENT: carotid bruit, full ROM, lymphadenopathy Respiratory exam: PRESENT: clear to auscultation reebcca, unlabored. ABSENT: accessory muscle use, rales, rhonchi, tachypnea, wheezes Cardiovascular exam: PRESENT: RRR, tachycardia Pulses: ABSENT: normal dorsalis pedis pul GI/Abdominal exam: PRESENT: normal bowel sounds, soft. ABSENT: ascites, d istended, guarding, mass, organolmegaly, rebound, tenderness Rectal exam: PRESENT: deferred Gentrourinary exam: PRESENT: indwelling catheter Extremities exam: PRESENT: pedal edema Musculoskeletal exam: ABSENT: deformity, dislocation Neurological exam: PRESENT: awake, oriented to person, oriented to place, oriented to time, oriented to situation - Facial droop is slightly improved noted to be droop to the right. There is slight ptosis of the left eye. He has global but symmetrical weakness of the upper extremities the right slightly worse than the left. His speech is somewhat halting but able to communicate and understands. He is weak in the upper extremities greater than the lower extremities. Psychiatric exam: PRESENT: appropriate affect, normal mood. ABSENT: homicidal ideation, suicidal ideation Focused psych exam: ABSENT: psychomotor agitation, restlessness Skin exam: PRESENT: dry, normal color. ABSENT: mottled, pallor Tubes/Lines: PRESENT: Other - Amanda Laboratory/Radiographs Laboratory Results: 11/18/19 05:40 11/18/19 05:40 11/17/19 11/17/19 11/17/19 13:25 13:25 13:25 WBC 12.1 H RBC 3.22 L Hgb 9.1 L Hct 27.6 L MCV 86 MCH 28.2 MCHC 33.0 RDW 21.8 H Plt Count 396 Seg Neutrophils % Not Reportable VBG pH 7.38 VBG pCO2 36.2 VBG HCO3 20.9 VBG Base Excess -3.4 Sodium 142.6 Potassium 3.8 Chloride 105 Carbon Dioxide 21 L Anion Gap 17 BUN 20 Creatinine 1.20 Est GFR ( Amer) > 60 Glucose 128 H Lactic Acid Calcium 4.8 L* Ionized Calcium Yola Phosphorus Magnesium Total Bilirubin 0.5 AST 104 H Alkaline Phosphatase 1918 H Ammonia Total Protein 6.0 L Albumin 2.9 L TSH Free T4 Free T3 pg/mL Urine Color Urine Appearance Urine pH Ur Specific [place] Urine Protein Urine Glucose (UA) Urine Ketones Urine Blood Urine Nitrite Ur Leukocyte Esterase Urine WBC (Auto) Urine RBC (Auto) 11/17/19 11/17/19 11/17/19 13:25 13:25 13:25 WBC RBC Hgb Hct MCV MCH MCHC RDW Plt Count Seg Neutrophils % VBG pH VBG pCO2 VBG HCO3 VBG Base Excess Sodium Potassium Chloride Carbon Dioxide Anion Gap BUN Creatinine Est GFR ( Amer) Glucose Lactic Acid 1.1 Calcium Ionized Calcium Yola Phosphorus 2.6 Magnesium 2.1 Total Bilirubin AST Alkaline Phosphatase Ammonia Total Protein Albumin TSH 2.26 Free T4 0.61 L Free T3 pg/mL 2.09 L Urine Color Urine Appearance Urine pH Ur Specific [place] Urine Protein Urine Glucose (UA) Urine Ketones Urine Blood Urine Nitrite Ur Leukocyte Esterase Urine WBC (Auto) Urine RBC (Auto) 11/17/19 11/17/19 11/17/19 16:22 17:35 18:30 WBC RBC Hgb Hct MCV MCH MCHC RDW Plt Count Seg Neutrophils % VBG pH VBG pCO2 VBG HCO3 VBG Base Excess Sodium Potassium Chloride Carbon Dioxide Anion Gap BUN Creatinine Est GFR ( Amer) Glucose Lactic Acid 0.9 Calcium Ionized Calcium Yola Phosphorus Magnesium Total Bilirubin AST Alkaline Phosphatase Ammonia < 8.7 L Total Protein Albumin TSH Free T4 Free T3 pg/mL Urine Color YELLOW Urine Appearance SLIGHTLY-CLOUDY Urine pH 5.0 Ur Specific [place] 1.026 Urine Protein 100 H Urine Glucose (UA) NEGATIVE Urine Ketones 20 H Urine Blood MODERATE H Urine Nitrite Ur Leukocyte Esterase Urine WBC (Auto) Urine RBC (Auto) 8 11/17/19 11/17/19 11/17/19 21:27 23:06 23:06 WBC RBC Hgb Hct MCV MCH MCHC RDW Plt Count Seg Neutrophils % VBG pH VBG pCO2 VBG HCO3 VBG Base Excess Sodium 140.1 Potassium 3.3 L Chloride 103 Carbon Dioxide 28 Anion Gap 9 BUN 17 Creatinine 1.02 Est GFR ( Amer) > 60 Glucose 132 H Lactic Acid 1.3 Calcium 4.8 L* Ionized Calcium Yola Phosphorus 2.4 L Magnesium Total Bilirubin AST Alkaline Phosphatase Ammonia Total Protein Albumin TSH Free T4 Free T3 pg/mL Urine Color YELLOW Urine Appearance SLIGHTLY-CLOUDY Urine pH 6.0 Ur Specific [place] 1.024 Urine Protein 30 H Urine Glucose (UA) NEGATIVE Urine Ketones TRACE H Urine Blood MODERATE H Urine Nitrite NEGATIVE Ur Leukocyte Esterase NEGATIVE Urine WBC (Auto) 8 Urine RBC (Auto) 8 11/17/19 11/18/19 11/18/19 23:14 05:40 05:40 WBC 10.8 H RBC 2.91 L Hgb 8.1 L Hct 24.5 L MCV 84 MCH 27.9 MCHC 33.1 RDW 21.6 H Plt Count 343 Seg Neutrophils % Not Reportable VBG pH VBG pCO2 VBG HCO3 VBG Base Excess Sodium 137.3 Potassium 3.8 Chloride 102 Carbon Dioxide 27 Anion Gap 8 BUN 14 Creatinine 0.89 Est GFR ( Amer) > 60 Glucose 168 H Lactic Acid Calcium 5.5 L* Ionized Calcium Yola 0.67 L Phosphorus 2.4 L Magnesium 1.8 Total Bilirubin 0.4 AST 76 H Alkaline Phosphatase 1483 H Ammonia Total Protein 5.6 L Albumin 2.9 L TSH Free T4 Free T3 pg/mL Urine Color Urine Appearance Urine pH Ur Specific [place] Urine Protein Urine Glucose (UA) Urine Ketones Urine Blood Urine Nitrite Ur Leukocyte Esterase Urine WBC (Auto) Urine RBC (Auto) 11/17/19 11/17/19 11/17/19 13:25 13:25 13:25 Creatine Kinase 211 H CK-MB (CK-2) 0.43 Troponin I 0.051 NT-Pro-B Natriuret Pep 11/17/19 11/18/19 23:06 05:40 Creatine Kinase 182 H CK-MB (CK-2) Troponin I NT-Pro-B Natriuret Pep 317 H Impressions: Cervical Spine CT 11/17/19 00:00 IMPRESSION: MULTIPLE SCLEROTIC LESIONS IN THE VERTEBRAE CONSISTENT WITH BONY METASTASES. NO ACUTE FINDINGS IN THE CERVICAL SPINE. Head CT 11/17/19 00:00 IMPRESSION: SURGICAL CHANGES IN THE RIGHT FRONTAL LOBE WITH MILD ENCEPHALOMALACIA. MILD CHRONIC CHANGES OF ATROPHY AND MICROVASCULAR ISCHEMIA. NO ACUTE PROCESS. EVIDENCE OF ACUTE STROKE: NO. Chest/Abdomen CTA 11/17/19 14:00 IMPRESSION: 1. NORMAL CTA OF THE CHEST. NO PULMONARY EMBOLI. 2. CARDIOMEGALY WITH BILATERAL PLEURAL EFFUSIONS AND COMPRESSIVE ATELECTASIS IN THE LUNG BASES. HAZY GROUND-GLASS OPACITIES THROUGHOUT BOTH LUNGS LIKELY REPRESENTS EARLY PULMONARY EDEMA. 3. PERICARDIAL EFFUSION. 4. EXTENSIVE SCLEROTIC BONY METASTASES. Chest X-Ray 11/18/19 06:00 IMPRESSION: Unchanged left retrocardiac opacity associated with air bronchograms. All labs, radiographs, diagnostic studies and EKGs were personally reviewed: Yes In addition, reports of radiographic and diagnostic studies were read: Yes Assessment and Plan - Diagnosis (1) Sepsis with acute organ dysfunction without septic shock Qualifiers: Sepsis type: sepsis due to unspecified organism Severe sepsis acute organ dysfunction type: acute renal failure Acute renal failure type: with other specified pathological lesion Qualified Code(s): A41.9 - Sepsis, unspecified organism; R65.20 - Severe sepsis without septic shock; N17.9 - Acute kidney failure, unspecified Is this a current diagnosis for this admission?: Yes Plan: At this point we will continue antibiotics. No clear source is noted. He does have 8 white cells in his urine and will await culture. Chest x-ray and CAT scan were consistent with groundglass interstitial changes. We will continue antibiotics for another 24 hours and follow blood cultures. At this point I am less impressed that this is sepsis and more related to dehydration. (2) Acute kidney injury Is this a current diagnosis for this admission?: Yes Plan: Much improved (3) Sepsis Qualifiers: Sepsis type: sepsis due to unspecified organism Sepsis acute organ dysfunction status: without acute organ dysfunction Qualified Code(s): A41.9 - Sepsis, unspecified organism Is this a current diagnosis for this admission?: Yes Plan: Suspicious that this is not sepsis however we will continue antibiotics. (4) Sinus tachycardia Is this a current diagnosis for this admission?: Yes Plan: Improving (5) Torticollis, acquired Is this a current diagnosis for this admission?: Yes Plan: Improving (6) Metastasis to brain Is this a current diagnosis for this admission?: Yes (7) Pain due to malignant neoplasm metastatic to bone Is this a current diagnosis for this admission?: Yes (8) Anorexia Is this a current diagnosis for this admission?: Yes (9) Moderate protein-energy malnutrition Is this a current diagnosis for this admission?: Yes (10) Prostate cancer metastatic to bone Is this a current diagnosis for this admission?: Yes Plan Summary: 11.18.2019: Patient has had improvement with IV fluids. Given the findings on his official echocardiogram I am concerned that his dehydration is related to adrenal insufficiency. He has been on steroids. Because of the dramatic torticollis and possible pain related to bony metastatic disease I have given him a dose of Decadron and start him on Flexeril. Throughout the day multiple reexaminations were done which showed improvement he is able to rotate his head. Furthermore his tachycardia has improved with beta-jennifer and fluid therapy. We will continue. A lengthy discussion with the family and the patient about his metastatic disease. There appears to be some ambiguity about the extent of his disease. Further discussion with the family. Continue supportive care. Potential for transfer once his tachycardia has improved. Turn for heart failure is paramount given the high heart rate. This may have explained his groundglass appearance and he may have had a physiologic left ventricular outflow tract obstruction leading to the groundglass appearance. No diuresis and continue IV fluids is the treatment. Critical Time Critical Time (minutes): 45 Level of Care: ICU Anticipated discharge: Home with Homehealth Within: within 48 hours -: 1. The care of a critical patient is a dynamic process. This note is a community representative synopsis but static in nature. The timeframe for treatments given in order is not necessarily the actual time these treatments may have been done. 2. This patient requires critical care secondary to ongoing requirements for therapy not offered or safe outside the critical care environment. Transfer to a lower level of care will result in altered life or limb morbidity and mortality. 3. Multidisciplinary rounds completed. 4. ABCDE bundle addressed.
[2019-11-19] MEDS ORDERED: METOPROLOL TARTRATE PF/INJ 5 MG/5 ML SDV IV ONE ×3 (00:43→05:40)
[2019-11-19] MEDS: RINGERS SOLUTION,LACTATED 1,000 ML IV PRN ×4 (01:00→22:14)
[2019-11-19] MEDS: CEFEPIME 1 GM/D5W RTU 1 GM/50 ML RTUPB IV SCH ×3 (01:11→17:24)
[2019-11-19] MEDS: HEPARIN SOD (PORCINE) 5,000 UNIT/ML 1 ML VIAL SUBCUT SCH ×3 (01:13→17:23)
[2019-11-19 03:59] LABS: ANION GAP 8 (5-19); BLOOD UREA NITROGEN 13 mg/dL (7-20); CARBON DIOXIDE 31 mmol/L (22-30); CHLORIDE 102 mmol/L (98-107); GLUCOSE 151 mg/dL (75-110); MEAN CORPUSCULAR HEMOGLOBIN 28.4 pg (27.0-33.4); MEAN CORPUSCULAR HGB CONC 33.6 g/dL (32.0-36.0); MEAN CORPUSCULAR VOLUME 85 fl (80-97); PHOSPHORUS 2.6 mg/dL (2.5-4.5); PLATELET COUNT 309 10^3/uL (150-450); POTASSIUM 3.5 mmol/L (3.6-5.0); RED BLOOD COUNT 2.72 10^6/uL (4.35-5.55); RED CELL DISTRIBUTION WIDTH 21.4 % (11.5-14.0); WHITE BLOOD COUNT 9.5 10^3/uL (4.0-10.5)
[2019-11-19 04:18] LABS: CALCIUM 4.8 mg/dL (8.4-10.2)
[2019-11-19 04:30] LABS: HEMOGLOBIN 7.7 g/dL (13.5-17.0)
[2019-11-19 04:31] LABS: ABSOLUTE LYMPHOCYTES# (MANUAL) 0.3 10^3/uL (0.5-4.7); ABSOLUTE MONOCYTES # (MANUAL) 0.1 10^3/uL (0.1-1.4); BAND NEUTROPHILS % (MANUAL) 3 % (3-5); BASOPHILS % (MANUAL) 0 % (0-2); EOSINOPHILS % (MANUAL) 0 % (0-6); LYMPHOCYTES % (MANUAL) 3 % (13-45); MONOCYTES % (MANUAL) 1 % (3-13); SEGMENTED NEUTROPHILS % (MAN) 93 % (42-78); TOTAL CELLS COUNTED 100; TOXIC GRANULATION SLIGHT
[2019-11-19 04:32] LABS: ANISOCYTOSIS 3+; OVALOCYTES 1+; PLATELET COMMENT ADEQUATE; TEAR DROP CELLS SLIGHT
[2019-11-19] MEDS ORDERED: RINGERS SOLUTION,LACTATED 500 ML IV ONE ×2 (05:19→05:57)
[2019-11-19] MEDS: HYDROCORTISONE SOD SUCCINATE INJ/PF 100 MG/2 ML SDV IV SCH ×3 (05:35→21:51)
[2019-11-19] MEDS ORDERED: VASOPRESSIN INJ 20 UNIT/1 ML VIAL ONE (06:42)
[2019-11-19] MEDS ORDERED: ONDANSETRON HCL INJ/PF 4 MG/2 ML SDV ONE (06:52)
[2019-11-19] MEDS ORDERED: ONDANSETRON HCL INJ/PF 4 MG/2 ML SDV IV ONE (07:30)
[2019-11-19] MEDS ORDERED: DIGOXIN INJ 0.5 MG/2 ML AMPULE ONE (09:46)
--- NOTE | 2019-11-19 10:03 | XCELERA REPORT ---
[address] [address] Transthoracic Echocardiogram Report Name: MARIAA ALCANTAR JR Age: 69 yrs Gender: Male : 1950 Patient Status: Inpatient Patient Location: ICU^605^A Study Date: 11/18/2019 10:07 AM Height: 71 in Weight: 152 lb BSA: 1.9 m2 Procedure: A complete two-dimensional transthoracic echocardiogram was performed (2D, M-mode, spectral and color flow Doppler). The study was technically difficult with many images being suboptimal in quality. Reason For Study: pericardial effusion Ordering Physician: MARISELA ARIZMENDI Performed By: Romana Sloan Interpretation Summary LV EF is 40% Left ventricular systolic function is moderately reduced. There is mild concentric left ventricular hypertrophy. The left ventricle is grossly normal size. LV diastolic function could not be adequately assessed. Not all wall segments were well visualized. Regional wall motion abnormalities cannot be excluded due to limited visualization. The right ventricular systolic function is normal. The left atrial size is normal. The right atrium is normal in size There is a mild amount of mitral regurgitation There is no mitral valve stenosis. No aortic regurgitation is present. There is no aortic valve stenosis There is a trace amount of tricuspid regurgitation Tricuspid regurgitation jet envelope not well defined to measure RV systolic pressure accurately. The aortic root is not well visualized but is probably normal size. The inferior vena cava appeared small and collapsed with respiration (RAP 0-5 mmHg) There is no pericardial effusion. Patient was tachycardic during the study. MMode/2D Measurements & Calculations RVDd: 3.1 cm LVIDd: 4.7 cm FS: 25.8 % Ao root diam: 3.7 cm IVSd: 0.99 cm LVIDs: 3.5 cm EDV(Teich): 100.3 ml Ao root area: 10.7 cm2 LVPWd: 1.0 cm ESV(Teich): 49.3 ml LA dimension: 3.1 cm EF(Teich): 50.8 % Doppler Measurements & Calculations MV E max tiffany: MV P1/2t max tiffany: Ao V2 max: LV V1 max P.0 cm/sec 115.0 cm/sec 131.9 cm/sec 3.5 mmHg MV P1/2t: 32.1 msec Ao max P.0 mmHg LV V1 max: MVA(P1/2t): 6.9 cm2 93.3 cm/sec MV dec slope: 1049 cm/sec2 MV dec time: 0.10 sec PA V2 max: TR max tiffany: MV P1/2t-pr_phl: 47.9 cm/sec 203.6 cm/sec 32.1 msec PA max PG: TR max P.6 mmHg 0.92 mmHg Left Ventricle The left ventricle is grossly normal size. There is mild concentric left ventricular hypertrophy. Left ventricular systolic function is moderately reduced. LV EF is 40%. LV diastolic function could not be adequately assessed. Not all wall segments were well visualized. Regional wall motion abnormalities cannot be excluded due to limited visualization. Right Ventricle The right ventricle is grossly normal size. There is normal right ventricular wall thickness. The right ventricular systolic function is normal. Atria The right atrium is normal in size. The left atrial size is normal. Interarterial septum not well visualized and not well dopplered. Cannot comment on ASD/PFO presence. Mitral Valve The mitral valve is grossly normal. There is no mitral valve stenosis. There is a mild amount of mitral regurgitation. Aortic Valve The aortic valve is not well visualized secondary to technical limitations. There is no aortic valve stenosis. No aortic regurgitation is present. Tricuspid Valve The tricuspid valve is not well visualized, but is grossly normal. There is no tricuspid stenosis. There is a trace amount of tricuspid regurgitation. Tricuspid regurgitation jet envelope not well defined to measure RV systolic pressure accurately. Pulmonic Valve The pulmonic valve is not well visualized. Great Vessels The aortic root is not well visualized but is probably normal size. The inferior vena cava appeared small and collapsed with respiration (RAP 0-5 mmHg). Effusions There is no pericardial effusion. : MARISELA ARIZMENDI Shyamal
[2019-11-19] MEDS ORDERED: DEXTROSE 5%-WATER 250 ML with VASOPRESSIN 100 UNIT IV PRN ×2 (10:10)
[2019-11-19] MEDS ORDERED: CALCIUM GLUCONATE 1000 MG/10 ML INJ IV ONE (10:15)
[2019-11-19] MEDS: INSULIN REG, HUMAN 100 UNIT/ML 3 ML VIAL (PYX) SUBCUT SCH ×4 (10:21→21:50)
[2019-11-19] MEDS: METOPROLOL TARTRATE 50 MG TABLET PO SCH ×2 (10:22→22:00)
[2019-11-19] MEDS: VANCOMYCIN HCL 1,000 MG in DEXTROSE 5%-WATER 250 ML IV SCH ×2 (10:32→22:03)
[2019-11-19] MEDS: LEVETIRACETAM 500 MG TABLET PO SCH ×2 (10:33→21:50)
[2019-11-19] MEDS: PREDNISONE 10 MG TABLET PO SCH (10:33)
[2019-11-19] MEDS ORDERED: CALCIUM GLUCONATE 2,000 MG in DEXTROSE 5%-WATER 100 ML IV ONE (11:30)
--- NOTE | 2019-11-19 13:08 | PDOC PROGRESS REPORT ---
Subjective Progress Note for:: 11/19/19 Subjective:: Patient sleepy today. Only opens eyes to voice and nods head Yes-No. Does not speak or answer other questions. Staff reports that his tachycardia is better with treatment. Ca still low, despite replacement. Reason For Visit: SEPSIS,TACHYCARDIA,RENAL FAILURE Physical Exam Vital Signs: Temp Pulse Resp BP Pulse Ox 98.0 F 160 H 18 80/63 L 99 11/19/19 12:00 11/19/19 12:00 11/19/19 12:00 11/19/19 12:00 11/19/19 12:00 Intake & Output 11/18/19 11/19/19 11/20/19 06:59 06:59 06:59 Intake Total 3188 3081 1000 Output Total 1125 2175 0 Balance 2063 906 1000 Weight 70.2 kg 73.4 kg General appearance: PRESENT: no acute distress, well-developed, well-nourished Head exam: PRESENT: normocephalic Respiratory exam: PRESENT: clear to auscultation rebecca, unlabored Cardiovascular exam: PRESENT: tachycardia Neurological exam: PRESENT: awake Skin exam: PRESENT: normal color Results Laboratory Results: 11/19/19 03:14 11/19/19 03:14 11/19/19 11/19/19 03:14 03:14 WBC 9.5 RBC 2.72 L Hgb 7.7 L Hct 23.0 L MCV 85 MCH 28.4 MCHC 33.6 RDW 21.4 H Plt Count 309 Seg Neutrophils % Not Reportable Sodium 141.3 Potassium 3.5 L Chloride 102 Carbon Dioxide 31 H Anion Gap 8 BUN 13 Creatinine 0.72 Est GFR ( Amer) > 60 Glucose 151 H Calcium 4.8 L* Phosphorus 2.6 Magnesium 1.8 11/17/19 17:35 Clean Catch Midstream Urine Culture - Final NO GROWTH 2 DAYS 11/17/19 11/17/19 11/17/19 13:25 13:25 13:25 Creatine Kinase 211 H CK-MB (CK-2) 0.43 Troponin I 0.051 NT-Pro-B Natriuret Pep 11/17/19 11/18/19 23:06 05:40 Creatine Kinase 182 H CK-MB (CK-2) Troponin I NT-Pro-B Natriuret Pep 317 H Impressions: Cervical Spine CT 11/17/19 00:00 IMPRESSION: MULTIPLE SCLEROTIC LESIONS IN THE VERTEBRAE CONSISTENT WITH BONY METASTASES. NO ACUTE FINDINGS IN THE CERVICAL SPINE. Head CT 11/17/19 00:00 IMPRESSION: SURGICAL CHANGES IN THE RIGHT FRONTAL LOBE WITH MILD ENCEPHALOMALACIA. MILD CHRONIC CHANGES OF ATROPHY AND MICROVASCULAR ISCHEMIA. NO ACUTE PROCESS. EVIDENCE OF ACUTE STROKE: NO. Chest/Abdomen CTA 11/17/19 14:00 IMPRESSION: 1. NORMAL CTA OF THE CHEST. NO PULMONARY EMBOLI. 2. CARDIOMEGALY WITH BILATERAL PLEURAL EFFUSIONS AND COMPRESSIVE ATELECTASIS IN THE LUNG BASES. HAZY GROUND-GLASS OPACITIES THROUGHOUT BOTH LUNGS LIKELY REPRESENTS EARLY PULMONARY EDEMA. 3. PERICARDIAL EFFUSION. 4. EXTENSIVE SCLEROTIC BONY METASTASES. Chest X-Ray 11/18/19 06:00 IMPRESSION: Unchanged left retrocardiac opacity associated with air bronch ograms. Assessment & Plan - Diagnosis (1) Hypocalcemia Is this a current diagnosis for this admission?: Yes Plan: May be due to the bone mets and cancer treatment. I would continue to follow inoized Calcium and replace Ca as much as possible. This can contribute to cardiac issues. (2) Prostate cancer metastatic to bone Is this a current diagnosis for this admission?: Yes Plan: All treatment on hold. (3) Sepsis Qualifiers: Sepsis type: sepsis due to unspecified organism Sepsis acute organ dysfunction status: without acute organ dysfunction Qualified Code(s): A41.9 - Sepsis, unspecified organism Is this a current diagnosis for this admission?: Yes Plan: As per freelance photographer. Currently on appropriate antibiotics. - Time Time Spent with patient: 15-24 minutes - Plan Summary Plan Summary: Patient was discussed with Dr. Quintana. Consider blood transfusion. Will annelise gilmore to follow with you.
[2019-11-19] MEDS ORDERED: ESMOLOL HCL/SOD CL 2,500 MG/250 ML RTUINJ IV ONE (13:12)
[2019-11-19] MEDS ORDERED: ADENOSINE INJ/PF 6 MG/2 ML SDV IV ONE (13:52)
--- NOTE | 2019-11-19 14:16 | PDOC CONSULTATION ---
Consultation-Blank Consultation: CARDIOLOGY CONSULTATION by Dr. Mavis Mandel. Patient seen at 1 PM. 60 minutes 60 minutes spent with patient more than 50% of time spent in direct patient care. 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 CONSULT REQUESTING PHYSICIAN: Dr. Eron Quintana, stock letterer. HISTORY OF PRESENT ILLNESS: History obtained from patient, son-in-law, and chart. 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 During that admission the patient had tachycardia which was difficult to control but finally the patient was controlled and converted to sinus rhythm. The patient was discharged just a few days ago, and the family called EMS since the patient was weak anorexic and unable to ambulate. He also developed dystonia of the right neck without known trauma, he was also found to be in SVT with a rate of 150 bpm. He was given Lopressor with no effect. Also his blood pressure was low. I placed the patient's tender palpation and manipulation of the patient various positions did not alter the SVT, and hence most likely this was not caused by the Port-A-Cath which tip is in the right atrium. The patient also was given 1 dose of digoxin. Subsequently his blood pressure came up and the patient was placed on vasopressin and esmolol. I held the esmolol for a brief. And gave the patient 6 mg of adenosine, after which the patient converted to sinus rhythm and is remained in sinus rhythm. Even when the patient had SVT the patient denied any chest pain or discomfort he was aware of rapid beating of the heart, but no shortness of breath. The patient is lying down flat in bed. The patient denies any prior history of arrhythmia except when he had an episode in [facility] he has no history of coronary artery disease, and no prior history of congestive heart failure. 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 Denies: Seizures Malignancy Medical History: Reports: Pancreatic Cancer GI Medical History: Denies: Hepatitis, Hiatal Hernia Musculoskeltal Medical History: Reports: Arthritis - Shoulder Psychiatric Medical History: Denies: Depression Hematology: Denies: Anemia, Sickle Cell Disease Past Surgical History Past Surgical History: Reports: Orthopedic Surgery - Lt knee, Other - Craniotomy ; Placement of mediport Denies: Pacemaker Social History Information Source: Relative, [facility] Records Lives with: Family - His mother and his niece Smoking Status: Former Smoker Frequency of Alcohol Use: None Hx Recreational Drug Use: No Drugs: None Hx Prescription Drug Abuse: No - Advance Directive Resuscitation Status: Full Code Surrogate healthcare decision maker:: Daughter Family History Family History: Reviewed & Not Pertinent, Hypertension Parental Family History Reviewed: No - Not pertinent Children Family History Reviewed: No Sibling(s) Family History Reviewed.: No Medication/Allergy Home Medications: Ergocalciferol (Vitamin D2) [Drisdol 50,000 unit (1.25MG) Capsule] 50,000 unit PO MO 11/04/19 Granisetron [Sancuso] 1 patch TD ASDIR PRN 11/04/19 Insulin Glargine,Hum.rec.anlog [Lantus Insulin 100 Unit/1 ml 10 ml] 24 units SQ QHS 11/04/19 Levetiracetam [Keppra 500 mg Tablet] 500 mg PO Q12 11/04/19 Linagliptin [Tradjenta] 5 mg PO DAILY 11/04/19 Oxycodone HCl [Oxy-Ir 5 mg Tablet] 10 mg PO Q3HP PRN 11/04/19 Prednisone 10 mg PO DAILY 11/04/19 Tamsulosin HCl [Flomax 0.4 mg Cap.sr] 0.4 mg PO QPM 11/04/19 Fentanyl [Duragesic 25 mcg/hr Transdermal Patch] 1 patch TOP Q3D 11/17/19 Rosuvastatin Calcium [Crestor 20 mg Tablet] 20 mg PO QHS 11/17/19 Allergies/Adverse Reactions: No Known Allergies Allergy (Verified 06/13/19 18:36) Current Medications Generic Name Dose Route Start Last Admin Trade Name Freq PRN Reason Stop Dose Admin Cyclobenzaprine HCl 10 mg 11/18/19 09:27 11/19/19 17:22 Flexeril 10 Mg Tablet PO 12/18/19 09:26 10 mg Q8HP PRN Administration MUSCLE SPASMS Dextrose 12.5 gm 11/18/19 06:44 Dextrose Inj 50% Syringe (25 Gm/50 Ml) IV 12/18/19 06:43 PRN PRN FOR BG 50-69 IN ALERT PATIENT Protocol Dextrose 25 gm 11/18/19 06:44 Dextrose Inj 50% Syringe (25 Gm/50 Ml) IV 12/18/19 06:43 PRN PRN PER PROTOCOL Protocol Ergocalciferol 50,000 unit 11/23/19 10:00 Drisdol 50,000 Unit (1.25mg) Capsule PO 12/23/19 09:59 MO JACKELIN Fentanyl 1 each 11/20/19 10:00 Duragesic 25 Mcg/Hr Transdermal Patch TOP 11/27/19 09:59 Q3DAYS JACKELIN Glucagon 1 mg 11/18/19 06:44 Glucagen Inj 1 Mg Vial IM 12/18/19 06:43 PRN PRN Evaluate for BG < 70 Protocol Glucose 15 gm 11/18/19 06:44 Glutose 40% Gel 15 Gm Tube PO 12/18/19 06:43 PRN PRN FOR BG 50-69 IN ALERT PATIENT Protocol Glucose 30 gm 11/18/19 06:44 Glutose 40% Gel 15 Gm Tube PO 12/18/19 06:43 PRN PRN FOR BG < 50 IN ALERT PATIENT Protocol Heparin Sodium (Porcine) 5,000 unit 11/17/19 18:00 11/19/19 17:23 Heparin Inj 5,000 Units/Ml 1 Ml Vial SUBCUT 12/17/19 17:59 5,000 unit Q8A JACKELIN Administration Hydrocortisone Sodium Succinate 100 mg 11/18/19 14:00 11/19/19 13:21 Solu-Cortef Inj/Pf 100 Mg/ 2 Ml Sdv IV 12/18/19 13:59 100 mg Q8 JACKELIN Administration Cefepime HCl 1 gm in 50 mls @ 100 mls/hr 11/18/19 11:00 11/19/19 17:24 Maxipime Rtu 1 Gm/D5w 50 Ml Premix Bag IV 11/25/19 10:59 100 mls/hr Q8A JACKELIN 100 mls/hr Administration Vancomycin HCl 1,000 mg/ 250 mls @ 166.667 mls/hr 11/18/19 11:30 11/19/19 17:22 Dextrose IV 11/25/19 11:29 Infused Q12 JACKELIN Infusion Lactated Ringer's 1,000 mls @ 150 mls/hr 11/18/19 17:42 11/19/19 14:40 Lactated Ringers 1000 Ml Iv Soln IV 12/18/19 17:41 150 mls/hr CONTINUOUS PRN Administration THIS MED IS NOT "PRN" Vasopressin 100 unit/ Dextrose 255 mls @ 0 mls/hr 11/19/19 10:10 11/19/19 11:54 IV 12/19/19 10:09 0.02 unit/min CONTINUOUS PRN 3.06 mls/hr THIS MED IS NOT "PRN" Administration Titrate Esmolol HCl 2,500 mg in 250 mls @ 0 mls/hr 11/19/19 14:06 11/19/19 17:30 Brevibloc Rtu 2500 Mg/250 Ml Nacl Premix Bag IV 12/19/19 14:05 50 mcg/kg/min CONTINUOUS PRN 22.02 mls/hr THIS MED IS NOT "PRN" Administration Protocol Titrate Insulin Human Regular 0 - 12 unit 11/18/19 08:00 11/19/19 17:23 Humulin R (Pyxis) Insulin 100 Unit/Ml 3ml SUBCUT 12/18/19 07:59 4 unit ACHS JACKELIN Administration Protocol Levetiracetam 500 mg 11/18/19 10:00 11/19/19 10:33 Keppra 500 Mg Tablet PO 12/18/19 09:59 500 mg Q12 JACKELIN Administration Metoprolol Tartrate 50 mg 11/18/19 10:00 11/19/19 10:22 Lopressor 50 Mg Tablet PO 12/18/19 09:59 Not Given Q12 JACKELIN Oxycodone HCl 10 mg 11/18/19 02:48 11/18/19 21:12 Oxy-Ir 5 Mg Tablet PO 11/25/19 02:47 10 mg Q4HP PRN Administration FOR PAIN Prednisone 10 mg 11/18/19 10:00 11/19/19 10:33 Deltasone 10 Mg Tablet PO 12/18/19 09:59 10 mg DAILY JACKELIN Administration Sodium Chloride 2.5 ml 11/17/19 22:00 11/19/19 14:39 Saline Flush 2.5 Ml Monoject Prefil Syrin IV 12/17/19 21:59 Not Given Q8 JACKELIN Tamsulosin HCl 0.4 mg 11/18/19 18:00 11/19/19 17:22 Flomax 0.4 Mg Cap.Sr PO 12/18/19 17:59 0.4 mg QPM JACKELIN Administration Discontinued Medications Generic Name Dose Route Start Last Admin Trade Name Freq PRN Reason Stop Dose Admin Adenosine Confirm 11/19/19 13:52 11/19/19 13:55 Adenocard Inj/Pf 6 Mg/2 Ml Sdv Administered 11/19/19 13:53 6 mg Dose Administration 6 mg IV .STK-MED ONE Calcium Chloride 2,000 mg 11/18/19 00:53 Calcium Chloride 10% Pf/Inj 1000 Mg/10 Ml Sdv IV 11/18/19 09:00 ASDIR PRN Calcium Gluconate 1,000 mg 11/17/19 14:31 11/17/19 15:04 Calcium Gluconate Inj 1000 Mg/10 Ml IV 11/17/19 14:32 1,000 mg NOW ONE Administration Calcium Gluconate 4,000 mg 11/18/19 01:37 11/18/19 02:43 Calcium Gluconate Inj 1000 Mg/10 Ml IV 11/18/19 01:38 Not Given NOW ONE Calcium Gluconate Confirm 11/18/19 01:57 Calcium Gluconate Inj 1000 Mg/10 Ml Administered 11/18/19 01:58 Dose 1,000 mg IV .STK-MED ONE Dexamethasone Sodium Phosphate 10 mg 11/18/19 11:00 11/18/19 10:25 Decadron Inj 10 Mg/1 Ml Vial IM 11/18/19 11:01 10 mg NOW ONE Administration Digoxin Confirm 11/19/19 09:46 11/19/19 10:32 Lanoxin Inj 0.5 Mg/2 Ml Ampule Administered 11/19/19 09:47 0.125 mg Dose Administration 0.5 mg .ROUTE .STK-MED ONE Fentanyl 1 each 11/20/19 22:00 Duragesic 25 Mcg/Hr Transdermal Patch TD 11/27/19 21:59 Q72H JACKELIN Fentanyl 1 each 11/17/19 23:30 11/17/19 23:26 Duragesic 25 Mcg/Hr Transdermal Patch TD 11/17/19 23:31 1 each NOW ONE Administration Fentanyl 1 each 11/18/19 10:00 11/18/19 11:00 Duragesic 25 Mcg/Hr Transdermal Patch TOP 11/25/19 09:59 Not Given Q3D JACKELIN Hydromorphone HCl 1 mg 11/17/19 13:33 11/17/19 13:50 Dilaudid Inj/Pf 2 Mg/Ml Ampule IV 1 mg Q20MP PRN Administration PAIN SCALE OF 3 Cefepime HCl 2 gm in 50 mls @ 100 mls/hr 11/17/19 14:00 11/18/19 00:04 Maxipime Rtu 2 Gm-D5w 50 Ml Premix Bag IV 11/24/19 13:59 Infused Q12 JACKELIN Infusion Vancomycin HCl / Dextrose 250 mls @ 0 mls/hr 11/17/19 13:30 IV 11/24/19 13:29 .PHARMACY TO DOSE NR As Directed Lactated Ringer's 1,000 mls @ 0 mls/hr 11/17/19 13:28 11/17/19 16:29 Lactated Ringers 1000 Ml Iv Soln IV 12/17/19 13:27 Infused CONTINUOUS PRN Infusion THIS MED IS NOT "PRN" Wide Open Sodium Chloride 1,000 mls @ 0 mls/hr 11/17/19 13:48 11/17/19 17:20 Nacl 0.9% 1000 Ml Iv Soln IV 11/17/19 13:49 Infused BOLUS ONE Infusion Wide Open Sodium Bicarbonate 125 meq/ 1,125 mls @ 150 mls/hr 11/17/19 17:07 11/18/19 05:10 Sterile Water IV 12/17/19 17:06 150 mls/hr CONTINUOUS PRN Administration THIS MED IS NOT "PRN" Cefepime HCl Confirm 11/17/19 22:59 11/17/19 23:15 Maxipime Rtu 2 Gm-D5w 50 Ml Premix Bag Administered 11/17/19 23:00 Not Given Dose 2 gm in 50 mls @ ud IV .STK-MED ONE Potassium Chloride/Water 20 meq in 50 mls @ 25 mls/hr 11/18/19 00:08 11/18/19 06:02 Potassium Chloride Mika 20 Meq/50 Ml IV 11/18/19 04:07 Infused Q2H JACKELIN Infusion Albumin Human 500 mls @ 0 mls/hr 11/18/19 00:11 11/18/19 01:52 Albutein 5% Inj 25 Gm/500 Ml Premixed Bottle IV 11/18/19 00:12 Infused NOW ONE Infusion Wide Open Calcium Chloride 2,000 mg/ 270 mls @ 67.5 mls/hr 11/18/19 01:00 11/18/19 01:58 Sodium Chloride IV 11/18/19 04:59 Not Given ONCE ONE Albumin Human Confirm 11/18/19 00:52 11/18/19 01:14 Albutein 5% Inj 25 Gm/500 Ml Premixed Bottle Administered 11/18/19 00:53 Not Given Dose 500 mls @ ud IV .STK-MED ONE Calcium Gluconate 4,000 mg/ 140 mls @ 70 mls/hr 11/18/19 02:15 11/18/19 02:34 Dextrose IV 11/18/19 04:14 70 mls/hr NOW ONE Administration Lactated Ringer's 500 mls @ 500 mls/hr 11/18/19 02:50 11/18/19 04:37 Lactated Ringers 1000 Ml Iv Soln IV 11/18/19 03:49 Infused BOLUS ONE Infusion Albumin Human 12.5 gm in 50 mls @ 50 mls/hr 11/18/19 10:15 11/18/19 14:35 Albuminar-25 Rtu Inj 12.5 Gm/50 Ml Premix IV 11/18/19 14:14 Infused Q1H JACKELIN Infusion Lactated Ringer's 1,000 mls @ 1,000 mls/hr 11/18/19 13:12 11/18/19 14:35 Lactated Ringers 1000 Ml Iv Soln IV 11/18/19 14:11 Infused BOLUS ONE Infusion Lactated Ringer's 500 mls @ 0 mls/hr 11/19/19 05:19 11/19/19 05:35 Lactated Ringers 1000 Ml Iv Soln IV 11/19/19 05:20 1,000 mls/hr BOLUS ONE Administration Wide Open Lactated Ringer's 500 mls @ 0 mls/hr 11/19/19 05:57 11/19/19 05:57 Lactated Ringers 1000 Ml Iv Soln IV 11/19/19 05:58 1,000 mls/hr BOLUS ONE Administration Wide Open Calcium Gluconate 2,000 mg/ 120 mls @ 60 mls/hr 11/19/19 11:30 11/19/19 11:34 Dextrose IV 11/19/19 13:29 60 mls/hr NOW ONE Administration Esmolol HCl Confirm 11/19/19 13:12 11/19/19 13:20 Brevibloc Rtu 2500 Mg/250 Ml Nacl Premix Bag Administered 11/19/19 13:13 50 mcg/kg/min Dose 22.02 mls/hr 2,500 mg in 250 mls @ ud Administration IV .STK-MED ONE Levetiracetam 500 mg 11/18/19 10:00 Keppra 500 Mg Tablet PO 12/18/19 09:59 Q12 JACKELIN Methocarbamol 500 mg 11/17/19 17:00 11/17/19 17:27 Robaxin Inj/Pf 1000 Mg/10 Ml Sdv IV 11/17/19 17:01 500 mg IVBAG (ED) ONE Administration Metoprolol Tartrate 2.5 mg 11/17/19 13:49 11/17/19 14:01 Lopressor Inj/Pf 5 Mg/5 Ml Sdv IV 11/17/19 13:50 2.5 mg NOW ONE Administration Metoprolol Tartrate 10 mg 11/18/19 03:37 11/18/19 03:49 Lopressor Inj/Pf 5 Mg/5 Ml Sdv IV 11/18/19 03:38 10 mg NOW ONE Administration Metoprolol Tartrate Confirm 11/18/19 03:37 11/18/19 03:49 Lopressor Inj/Pf 5 Mg/5 Ml Sdv Administered 11/18/19 03:38 Not Given Dose 5 mg IV .STK-MED ONE Metoprolol Tartrate 25 mg 11/18/19 04:28 11/18/19 05:02 Lopressor 25 Mg Tablet PO 11/18/19 04:29 25 mg NOW ONE Administration Metoprolol Tartrate 10 mg 11/18/19 09:26 11/18/19 09:38 Lopressor Inj/Pf 5 Mg/5 Ml Sdv IV 11/18/19 09:27 10 mg NOW ONE Administration Metoprolol Tartrate 10 mg 11/18/19 13:30 11/18/19 13:33 Lopressor Inj/Pf 5 Mg/5 Ml Sdv IV 11/18/19 13:31 10 mg NOW ONE Administration Metoprolol Tartrate 10 mg 11/19/19 00:43 11/19/19 01:11 Lopressor Inj/Pf 5 Mg/5 Ml Sdv IV 11/19/19 00:44 10 mg NOW ONE Administration Metoprolol Tartrate 10 mg 11/19/19 05:40 11/19/19 05:40 Lopressor Inj/Pf 5 Mg/5 Ml Sdv IV 11/19/19 05:41 10 mg NOW ONE Administration Metoprolol Tartrate Confirm 11/19/19 05:40 11/19/19 05:59 Lopressor Inj/Pf 5 Mg/5 Ml Sdv Administered 11/19/19 05:41 Not Given Dose 5 mg IV .STK-MED ONE Ondansetron HCl Confirm 11/19/19 06:52 11/19/19 06:55 Zofran Inj/Pf 4 Mg/2 Ml Sdv Administered 11/19/19 06:53 Not Given Dose 4 mg .ROUTE .STK-MED ONE Ondansetron HCl 4 mg 11/19/19 07:30 11/19/19 08:10 Zofran Inj/Pf 4 Mg/2 Ml Sdv IV 11/19/19 07:31 Not Given NOW ONE Potassium Phosphate 500 mg 11/18/19 00:08 11/18/19 00:59 K-Phos Neutral 250 Mg Tablet PO 11/18/19 00:09 500 mg NOW ONE Administration Sodium Chloride 2.5 ml 11/17/19 14:00 11/17/19 16:30 Saline Flush 2.5 Ml Monoject Prefil Syrin IV 12/17/19 13:59 Not Given Q8 JACKELIN Tamsulosin HCl 0.4 mg 11/18/19 18:00 Flomax 0.4 Mg Cap.Sr PO 12/18/19 17:59 PCSUPPER JACKELIN Vancomycin HCl 1,500 mg 11/17/19 14:30 11/17/19 15:09 Vancocin Inj 1000 Mg Vial IV 11/17/19 14:31 1,500 mg IVBAG (ED) ONE Administration Vasopressin Confirm 11/19/19 06:42 11/19/19 06:55 Vasopressin Inj 20 Unit/1 Ml Vial Administered 11/19/19 06:43 20 unit Dose Administration 20 unit .ROUTE .STK-MED ONE Review of Systems All systems: as per PMH Constitutional: PRESENT: anorexia, fatigue, weakness, weight loss. ABSENT: chills, fever(s) - But temperature elevation noted in ED Eyes: PRESENT: visual disturbances Ears: ABSENT: as per HPI, hearing changes, other Nose, Mouth, and Throat: ABSENT: mouth pain, sore throat Cardiovascular: ABSENT: chest pain, dyspnea on exertion, edema, palpitations Respiratory: PRESENT: cough, sputum. ABSENT: dyspnea, hemoptysis Gastrointestinal: ABSENT: abdominal pain, constipation, diarrhea, hematemesis, hematochezia, nausea, vomiting Genitourinary: PRESENT: difficulty urinating Musculoskeletal: PRESENT: back pain, joint swelling, muscle weakness Integumentary: ABSENT: diaphoresis, lesions, pruritus, rash Neurological: PRESENT: lack of coordination, weakness. ABSENT: confusion, convulsions, syncope, tingling Psychiatric: ABSENT: as per HPI, anxiety, depression, hallucinations, homidical ideation, suicidal ideation, other Endocrine: PRESENT: menstrual abnormalities. ABSENT: cold intolerance, heat intolerance, polydipsia, polyuria Hematologic/Lymphatic: ABSENT: as per HPI, easy bleeding, easy bruising, lymphadenopathy, other PHYSICAL EXAMINATION: The patient appears to be chronically ill. He is mildly obese. In spite of the SVT the patient does not appear to be in acute distress. The patient in spite of her blood pressure which is low is still mentating well. Selected Entries 11/19/19 11/19/19 11/19/19 10:00 10:28 13:29 Pulse Rate 158 H Heart Rate ( 160 Monitors) Respiratory 13 19 Rate Blood Pressure 93/78 L Blood Pressure 86/72 L [Upper Arm] Blood Pressure 83 Mean Blood Pressure 76 Mean [Upper Arm ] Blood Pressure Supine Position [Upper Arm] O2 Sat by Pulse 98 99 Oximetry Oxygen Delivery Room Air Method ( includes room air) 11/19/19 11/19/19 11/19/19 13:43 13:57 13:58 Pulse Rate Heart Rate ( 80 76 Monitors) Respiratory 10 L Rate Blood Pressure 128/87 H Blood Pressure [Upper Arm] Blood Pressure 100 Mean Blood Pressure Mean [Upper Arm ] Blood Pressure Position [Upper Arm] O2 Sat by Pulse 100 96 Oximetry Oxygen Delivery Room Air includes room air) HEAD: Scar of prior right craniotomy present. Normocephalic. EYES: Pupils are equal round regular reactive to light and accommodation. There is conjunctival pallor. There is no scleral icterus. EARS: Tympanic membranes are intact. External auditory canals are clear. NOSE nose: There is no deviated nasal septum. There is no inflammation nasal mucous membrane. MOUTH: Mucous membranes of mouth are slightly dry. There is no bleeding from the gums. THROAT: There is no redness of the oropharynx. There is no exudates. SKIN: There is no petechia or ecchymosis. There is no skin lesions or skin rashes. 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 Right side of neck is tender neck movements are limited due to pain and muscle spasm. There is no palpable lymphadenopathy. There is no goiter. There is no accessory muscle respiration use. TRACHEA is central. LUNGS: Clear to auscultation percussion. Heart: S1-S2 is heard. There is no S3 gallop. There is no S4 gallop. There is mild mitral regurgitation murmur present. There is no aortic stenosis or aortic regurgitation murmur. There is no S3 gallop. There is no S4 gallop. S1 is of normal intensity. There is no rub. ABDOMEN: Soft nontender. There is no hepatosplenomegaly bowel sounds are well heard. EXTREMITIES: Femorals are well felt. There is no femoral bruits. Leg pulses well felt. There is no pedal edema. There is no DVT or cellulitis. There is no cyanosis or clubbing. YARN WEIGHT AND STRENGTH TESTER: The patient is conscious awake alert oriented to place person and time. And also situation. He has weak upper extremity and lower extremity. No focal deficits though. PSYCHIATRIC: Patient is in spite of his low blood pressures judgment site seem to be intact. He does not appear to be anxious or agitated. Labs- Entire Visit 11/17/19 11/17/19 11/17/19 13:25 13:25 13:25 WBC 12.1 H RBC 3.22 L Hgb 9.1 L Hct 27.6 L MCV 86 MCH 28.2 MCHC 33.0 RDW 21.8 H Plt Count 396 Lymph % (Auto) Not Reportable [place] % (Auto) Not Reportable Eos % (Auto) Not Reportable Baso % (Auto) Not Reportable Absolute Neuts (auto) Not Reportable Absolute Lymphs (auto) Not Reportable Absolute Monos (auto) Not Reportable Absolute Eos (auto) Not Reportable Absolute Basos (auto) Not Reportable Total Counted 100 Seg Neutrophils % Not Reportable Seg Neuts % (Manual) 88 H Band Neutrophils % Lymphocytes % (Manual) 7 L Monocytes % (Manual) 5 Eosinophils % (Manual) 0 Basophils % (Manual) 0 Abs Neuts (Manual) 10.6 H Abs Lymphs (Manual) 0.8 Abs Monocytes (Manual) 0.6 Absolute Eos (Manual) 0.0 Abs Basophils (Manual) 0.0 Toxic Granulation Platelet Comment ADEQUATE Polychromasia SLIGHT Poikilocytosis Anisocytosis 3+ Tear Drop Cells SLIGHT Ovalocytes 1+ PT 16.8 H INR 1.35 APTT VBG pH VBG pCO2 VBG HCO3 VBG Base Excess Sodium 142.6 Potassium 3.8 Chloride 105 Carbon Dioxide 21 L Anion Gap 17 BUN 20 Creatinine 1.20 Est GFR ( Amer) > 60 Est GFR (MDRD) Non-Af > 60 Glucose 128 H POC Glucose Lactic Acid Calcium 4.8 L* Ionized Calcium Yola Phosphorus Magnesium Total Bilirubin 0.5 Direct Bilirubin 0.4 Neonat Total Bilirubin 0.1 Neonat Direct Bilirubin 0.0 Neonat Indirect Bili 0.1 AST 104 H ALT 24 Alkaline Phosphatase 1918 H Ammonia Creatine Kinase CK-MB (CK-2) Troponin I NT-Pro-B Natriuret Pep Total Protein 6.0 L Albumin 2.9 L TSH Free T4 Free T3 pg/mL Urine Color Urine Appearance Urine pH Ur Specific Venus Urine Protein Urine Glucose (UA) Urine Ketones Urine Blood Urine Nitrite Urine Nitrite (Reflex) Urine Bilirubin Urine Urobilinogen Ur Leukocyte Esterase Leukocyte Esterase Rfl Urine WBC (Auto) Urine RBC (Auto) Urine WBC (Reflex) Squamous Epi Cells Auto Urine Mucus (Auto) Urine Ascorbic Acid Influenza A (Rapid) Influenza B (Rapid) 11/17/19 11/17/19 11/17/19 13:25 13:25 13:25 WBC RBC Hgb Hct MCV MCH MCHC RDW Plt Count Lymph % (Auto) [place] % (Auto) Eos % (Auto) Baso % (Auto) Absolute Neuts (auto) Absolute Lymphs (auto) Absolute Monos (auto) Absolute Eos (auto) Absolute Basos (auto) Total Counted Seg Neutrophils % Seg Neuts % (Manual) Band Neutrophils % Lymphocytes % (Manual) Monocytes % (Manual) Eosinophils % (Manual) Basophils % (Manual) Abs Neuts (Manual) Abs Lymphs (Manual) Abs Monocytes (Manual) Absolute Eos (Manual) Abs Basophils (Manual) Toxic Granulation Platelet Comment Polychromasia Poikilocytosis Anisocytosis Tear Drop Cells Ovalocytes PT INR APTT VBG pH 7.38 VBG pCO2 36.2 VBG HCO3 20.9 VBG Base Excess -3.4 Sodium Potassium Chloride Carbon Dioxide Anion Gap BUN Creatinine Est GFR ( Amer) Est GFR (MDRD) Non-Af Glucose POC Glucose Lactic Acid 1.1 Calcium Ionized Calcium [place]ola Phosphorus Magnesium Total Bilirubin Direct Bilirubin Neonat Total Bilirubin Neonat Direct Bilirubin Neonat Indirect Bili AST ALT Alkaline Phosphatase Ammonia Creatine Kinase CK-MB (CK-2) Troponin I 0.051 NT-Pro-B Natriuret Pep Total Protein Albumin TSH Free T4 Free T3 pg/mL Urine Color Urine Appearance Urine pH Ur Specific [place] Urine Protein Urine Glucose (UA) Urine Ketones Urine Blood Urine Nitrite Urine Nitrite (Reflex) Urine Bilirubin Urine Urobilinogen Ur Leukocyte Esterase Leukocyte Esterase Rfl Urine WBC (Auto) Urine RBC (Auto) Urine WBC (Reflex) Squamous Epi Cells Auto Urine Mucus (Auto) Urine Ascorbic Acid Influenza A (Rapid) Influenza B (Rapid) 11/17/19 11/17/19 11/17/19 13:25 13:25 13:25 WBC RBC Hgb Hct MCV MCH MCHC RDW Plt Count Lymph % (Auto) [place] % (Auto) Eos % (Auto) Baso % (Auto) Absolute Neuts (auto) Absolute Lymphs (auto) Absolute Monos (auto) Absolute Eos (auto) Absolute Basos (auto) Total Counted Seg Neutrophils % Seg Neuts % (Manual) Band Neutrophils % Lymphocytes % (Manual) Monocytes % (Manual) Eosinophils % (Manual) Basophils % (Manual) Abs Neuts (Manual) Abs Lymphs (Manual) Abs Monocytes (Manual) Absolute Eos (Manual) Abs Basophils (Manual) Toxic Granulation Platelet Comment Polychromasia Poikilocytosis Anisocytosis Tear Drop Cells Ovalocytes PT INR APTT VBG pH VBG pCO2 VBG HCO3 VBG Base Excess Sodium Potassium Chloride Carbon Dioxide Anion Gap BUN Creatinine Est GFR ( Amer) Est GFR (MDRD) Non-Af Glucose POC Glucose Lactic Acid Calcium Ionized Calcium [place]ola Phosphorus 2.6 Magnesium 2.1 Total Bilirubin Direct Bilirubin Neonat Total Bilirubin Neonat Direct Bilirubin Neonat Indirect Bili AST ALT Alkaline Phosphatase Ammonia Creatine Kinase 211 H CK-MB (CK-2) 0.43 Troponin I NT-Pro-B Natriuret Pep Total Protein Albumin TSH 2.26 Free T4 0.61 L Free T3 pg/mL 2.09 L Urine Color Urine Appearance Urine pH Ur Specific [place] Urine Protein Urine Glucose (UA) Urine Ketones Urine Blood Urine Nitrite Urine Nitrite (Reflex) Urine Bilirubin Urine Urobilinogen Ur Leukocyte Esterase Leukocyte Esterase Rfl Urine WBC (Auto) Urine RBC (Auto) Urine WBC (Reflex) Squamous Epi Cells Auto Urine Mucus (Auto) Urine Ascorbic Acid Influenza A (Rapid) Influenza B (Rapid) 11/17/19 11/17/19 11/17/19 16:22 17:35 18:30 WBC RBC Hgb Hct MCV MCH MCHC RDW Plt Count Lymph % (Auto) [place] % (Auto) Eos % (Auto) Baso % (Auto) Absolute Neuts (auto) Absolute Lymphs (auto) Absolute Monos (auto) Absolute Eos (auto) Absolute Basos (auto) Total Counted Seg Neutrophils % Seg Neuts % (Manual) Band Neutrophils % Lymphocytes % (Manual) Monocytes % (Manual) Eosinophils % (Manual) Basophils % (Manual) Abs Neuts (Manual) Abs Lymphs (Manual) Abs Monocytes (Manual) Absolute Eos (Manual) Abs Basophils (Manual) Toxic Granulation Platelet Comment Polychromasia Poikilocytosis Anisocytosis Tear Drop Cells Ovalocytes PT INR APTT VBG pH VBG pCO2 VBG HCO3 VBG Base Excess Sodium Potassium Chloride Carbon Dioxide Anion Gap BUN Creatinine Est GFR ( Amer) Est GFR (MDRD) Non-Af Glucose POC Glucose Lactic Acid 0.9 Calcium Ionized Calcium [place] Phosphorus Magnesium Total Bilirubin Direct Bilirubin Neonat Total Bilirubin Neonat Direct Bilirubin Neonat Indirect Bili AST ALT Alkaline Phosphatase Ammonia < 8.7 L Creatine Kinase CK-MB (CK-2) Troponin I NT-Pro-B Natriuret Pep Total Protein Albumin TSH Free T4 Free T3 pg/mL Urine Color YELLOW Urine Appearance SLIGHTLY-CLOUDY Urine pH 5.0 Ur Specific [place] 1.026 Urine Protein 100 H Urine Glucose (UA) NEGATIVE Urine Ketones 20 H Urine Blood MODERATE H Urine Nitrite Urine Nitrite (Reflex) NEGATIVE Urine Bilirubin NEGATIVE Urine Urobilinogen NEGATIVE Ur Leukocyte Esterase Leukocyte Esterase Rfl NEGATIVE Urine WBC (Auto) Urine RBC (Auto) 8 Urine WBC (Reflex) 6 Squamous Epi Cells Auto 1 Urine Mucus (Auto) RARE Urine Ascorbic Acid NEGATIVE Influenza A (Rapid) Influenza B (Rapid) 11/17/19 11/17/19 11/17/19 21:27 23:06 23:06 WBC RBC Hgb Hct MCV MCH MCHC RDW Plt Count Lymph % (Auto) [place] % (Auto) Eos % (Auto) Baso % (Auto) Absolute Neuts (auto) Absolute Lymphs (auto) Absolute Monos (auto) Absolute Eos (auto) Absolute Basos (auto) Total Counted Seg Neutrophils % Seg Neuts % (Manual) Band Neutrophils % Lymphocytes % (Manual) Monocytes % (Manual) Eosinophils % (Manual) Basophils % (Manual) Abs Neuts (Manual) Abs Lymphs (Manual) Abs Monocytes (Manual) Absolute Eos (Manual) Abs Basophils (Manual) Toxic Granulation Platelet Comment Polychromasia Poikilocytosis Anisocytosis Tear Drop Cells Ovalocytes PT INR APTT VBG pH VBG pCO2 VBG HCO3 VBG Base Excess Sodium 140.1 Potassium 3.3 L Chloride 103 Carbon Dioxide 28 Anion Gap 9 BUN 17 Creatinine 1.02 Est GFR ( Amer) > 60 Est GFR (MDRD) Non-Af > 60 Glucose 132 H POC Glucose Lactic Acid 1.3 Calcium 4.8 L* Ionized Calcium [place] Phosphorus 2.4 L Magnesium Total Bilirubin Direct Bilirubin Neonat Total Bilirubin Neonat Direct Bilirubin Neonat Indirect Bili AST ALT Alkaline Phosphatase Ammonia Creatine Kinase CK-MB (CK-2) Troponin I NT-Pro-B Natriuret Pep Total Protein Albumin TSH Free T4 Free T3 pg/mL Urine Color YELLOW Urine Appearance SLIGHTLY-CLOUDY Urine pH 6.0 Ur Specific [place] 1.024 Urine Protein 30 H Urine Glucose (UA) NEGATIVE Urine Ketones TRACE H Urine Blood MODERATE H Urine Nitrite NEGATIVE Urine Nitrite (Reflex) Urine Bilirubin NEGATIVE Urine Urobilinogen NEGATIVE Ur Leukocyte Esterase NEGATIVE Leukocyte Esterase Rfl Urine WBC (Auto) 8 Urine RBC (Auto) 8 Urine WBC (Reflex) Squamous Epi Cells Auto <1 Urine Mucus (Auto) RARE Urine Ascorbic Acid NEGATIVE Influenza A (Rapid) Influenza B (Rapid) 11/17/19 11/17/19 11/18/19 23:06 23:14 01:10 WBC RBC Hgb Hct MCV MCH MCHC RDW Plt Count Lymph % (Auto) [place] % (Auto) Eos % (Auto) Baso % (Auto) Absolute Neuts (auto) Absolute Lymphs (auto) Absolute Monos (auto) Absolute Eos (auto) Absolute Basos (auto) Total Counted Seg Neutrophils % Seg Neuts % (Manual) Band Neutrophils % Lymphocytes % (Manual) Monocytes % (Manual) Eosinophils % (Manual) Basophils % (Manual) Abs Neuts (Manual) Abs Lymphs (Manual) Abs Monocytes (Manual) Absolute Eos (Manual) Abs Basophils (Manual) Toxic Granulation Platelet Comment Polychromasia Poikilocytosis Anisocytosis Tear Drop Cells Ovalocytes PT INR APTT VBG pH VBG pCO2 VBG HCO3 VBG Base Excess Sodium Potassium Chloride Carbon Dioxide Anion Gap BUN Creatinine Est GFR ( Amer) Est GFR (MDRD) Non-Af Glucose POC Glucose Lactic Acid Calcium Ionized Calcium [place] 0.67 L Phosphorus Magnesium Total Bilirubin Direct Bilirubin Neonat Total Bilirubin Neonat Direct Bilirubin Neonat Indirect Bili AST ALT Alkaline Phosphatase Ammonia Creatine Kinase CK-MB (CK-2) Troponin I NT-Pro-B Natriuret Pep 317 H Total Protein Albumin TSH Free T4 Free T3 pg/mL Urine Color Urine Appearance Urine pH Ur Specific Venus Urine Protein Urine Glucose (UA) Urine Ketones Urine Blood Urine Nitrite Urine Nitrite (Reflex) Urine Bilirubin Urine Urobilinogen Ur Leukocyte Esterase Leukocyte Esterase Rfl Urine WBC (Auto) Urine RBC (Auto) Urine WBC (Reflex) Squamous Epi Cells Auto Urine Mucus (Auto) Urine Ascorbic Acid Influenza A (Rapid) NEGATIVE Influenza B (Rapid) NEGATIVE 11/18/19 11/18/19 11/18/19 05:40 05:40 06:45 WBC 10.8 H RBC 2.91 L Hgb 8.1 L Hct 24.5 L MCV 84 MCH 27.9 MCHC 33.1 RDW 21.6 H Plt Count 343 Lymph % (Auto) Not Reportable [place] % (Auto) Not Reportable Eos % (Auto) Not Reportable Baso % (Auto) Not Reportable Absolute Neuts (auto) Not Reportable Absolute Lymphs (auto) Not Reportable Absolute Monos (auto) Not Reportable Absolute Eos (auto) Not Reportable Absolute Basos (auto) Not Reportable Total Counted 100 Seg Neutrophils % Not Reportable Seg Neuts % (Manual) 87 H Band Neutrophils % Lymphocytes % (Manual) 6 L Monocytes % (Manual) 4 Eosinophils % (Manual) 3 Basophils % (Manual) 0 Abs Neuts (Manual) 9.4 H Abs Lymphs (Manual) 0.6 Abs Monocytes (Manual) 0.4 Absolute Eos (Manual) 0.3 Abs Basophils (Manual) 0.0 Toxic Granulation Platelet Comment ADEQUATE Polychromasia Poikilocytosis 1+ Anisocytosis 3+ Tear Drop Cells SLIGHT Ovalocytes 1+ PT 17.3 H INR 1.40 APTT 43.2 H VBG pH VBG pCO2 VBG HCO3 VBG Base Excess Sodium 137.3 Potassium 3.8 Chloride 102 Carbon Dioxide 27 Anion Gap 8 BUN 14 Creatinine 0.89 Est GFR ( Amer) > 60 Est GFR (MDRD) Non-Af > 60 Glucose 168 H POC Glucose Lactic Acid Calcium 5.5 L* Ionized Calcium [place] Phosphorus 2.4 L Magnesium 1.8 Total Bilirubin 0.4 Direct Bilirubin 0.3 Neonat Total Bilirubin Not Reportable Neonat Direct Bilirubin Not Reportable Neonat Indirect Bili Not Reportable AST 76 H ALT 21 Alkaline Phosphatase 1483 H Ammonia Creatine Kinase 182 H CK-MB (CK-2) Troponin I NT-Pro-B Natriuret Pep Total Protein 5.6 L Albumin 2.9 L TSH Free T4 Free T3 pg/mL Urine Color Urine Appearance Urine pH Ur Specific [place] Urine Protein Urine Glucose (UA) Urine Ketones Urine Blood Urine Nitrite Urine Nitrite (Reflex) Urine Bilirubin Urine Urobilinogen Ur Leukocyte Esterase Leukocyte Esterase Rfl Urine WBC (Auto) Urine RBC (Auto) Urine WBC (Reflex) Squamous Epi Cells Auto Urine Mucus (Auto) Urine Ascorbic Acid Influenza A (Rapid) Influenza B (Rapid) 11/18/19 11/18/19 11/18/19 08:00 11:05 16:11 WBC RBC Hgb Hct MCV MCH MCHC RDW Plt Count Lymph % (Auto) [place] % (Auto) Eos % (Auto) Baso % (Auto) Absolute Neuts (auto) Absolute Lymphs (auto) Absolute Monos (auto) Absolute Eos (auto) Absolute Basos (auto) Total Counted Seg Neutrophils % Seg Neuts % (Manual) Band Neutrophils % Lymphocytes % (Manual) Monocytes % (Manual) Eosinophils % (Manual) Basophils % (Manual) Abs Neuts (Manual) Abs Lymphs (Manual) Abs Monocytes (Manual) Absolute Eos (Manual) Abs Basophils (Manual) Toxic Granulation Platelet Comment Polychromasia Poikilocytosis Anisocytosis Tear Drop Cells Ovalocytes PT INR APTT VBG pH VBG pCO2 VBG HCO3 VBG Base Excess Sodium Potassium Chloride Carbon Dioxide Anion Gap BUN Creatinine Est GFR ( Amer) Est GFR (MDRD) Non-Af Glucose POC Glucose 126 H 132 H 196 H Lactic Acid Calcium Ionized Calcium [place] Phosphorus Magnesium Total Bilirubin Direct Bilirubin Neonat Total Bilirubin Neonat Direct Bilirubin Neonat Indirect Bili AST ALT Alkaline Phosphatase Ammonia Creatine Kinase CK-MB (CK-2) Troponin I NT-Pro-B Natriuret Pep Total Protein Albumin TSH Free T4 Free T3 pg/mL Urine Color Urine Appearance Urine pH Ur Specific [place] Urine Protein Urine Glucose (UA) Urine Ketones Urine Blood Urine Nitrite Urine Nitrite (Reflex) Urine Bilirubin Urine Urobilinogen Ur Leukocyte Esterase Leukocyte Esterase Rfl Urine WBC (Auto) Urine RBC (Auto) Urine WBC (Reflex) Squamous Epi Cells Auto Urine Mucus (Auto) Urine Ascorbic Acid Influenza A (Rapid) Influenza B (Rapid) 11/18/19 11/19/19 11/19/19 21:03 03:14 03:14 WBC 9.5 RBC 2.72 L Hgb 7.7 L Hct 23.0 L MCV 85 MCH 28.4 MCHC 33.6 RDW 21.4 H Plt Count 309 Lymph % (Auto) Not Reportable [place] % (Auto) Not Reportable Eos % (Auto) Not Reportable Baso % (Auto) Not Reportable Absolute Neuts (auto) Not Reportable Absolute Lymphs (auto) Not Reportable Absolute Monos (auto) Not Reportable Absolute Eos (auto) Not Reportable Absolute Basos (auto) Not Reportable Total Counted 100 Seg Neutrophils % Not Reportable Seg Neuts % (Manual) 93 H Band Neutrophils % 3 Lymphocytes % (Manual) 3 L Monocytes % (Manual) 1 L Eosinophils % (Manual) 0 Basophils % (Manual) 0 Abs Neuts (Manual) 9.1 H Abs Lymphs (Manual) 0.3 L Abs Monocytes (Manual) 0.1 Absolute Eos (Manual) 0.0 Abs Basophils (Manual) 0.0 Toxic Granulation SLIGHT Platelet Comment ADEQUATE Polychromasia Poikilocytosis Anisocytosis 3+ Tear Drop Cells SLIGHT Ovalocytes 1+ PT INR APTT VBG pH VBG pCO2 VBG HCO3 VBG Base Excess Sodium 141.3 Potassium 3.5 L Chloride 102 Carbon Dioxide 31 H Anion Gap 8 BUN 13 Creatinine 0.72 Est GFR ( Amer) > 60 Est GFR (MDRD) Non-Af > 60 Glucose 151 H POC Glucose 188 H Lactic Acid Calcium 4.8 L* Ionized Calcium [place] Phosphorus 2.6 Magnesium 1.8 Total Bilirubin Direct Bilirubin Neonat Total Bilirubin Neonat Direct Bilirubin Neonat Indirect Bili AST ALT Alkaline Phosphatase Ammonia Creatine Kinase CK-MB (CK-2) Troponin I NT-Pro-B Natriuret Pep Total Protein Albumin TSH Free T4 Free T3 pg/mL Urine Color Urine Appearance Urine pH Ur Specific [place] Urine Protein Urine Glucose (UA) Urine Ketones Urine Blood Urine Nitrite Urine Nitrite (Reflex) Urine Bilirubin Urine Urobilinogen Ur Leukocyte Esterase Leukocyte Esterase Rfl Urine WBC (Auto) Urine RBC (Auto) Urine WBC (Reflex) Squamous Epi Cells Auto Urine Mucus (Auto) Urine Ascorbic Acid Influenza A (Rapid) Influenza B (Rapid) 11/19/19 11/19/19 11/19/19 10:58 16:12 21:29 WBC RBC Hgb Hct MCV MCH MCHC RDW Plt Count Lymph % (Auto) [place] % (Auto) Eos % (Auto) Baso % (Auto) Absolute Neuts (auto) Absolute Lymphs (auto) Absolute Monos (auto) Absolute Eos (auto) Absolute Basos (auto) Total Counted Seg Neutrophils % Seg Neuts % (Manual) Band Neutrophils % Lymphocytes % (Manual) Monocytes % (Manual) Eosinophils % (Manual) Basophils % (Manual) Abs Neuts (Manual) Abs Lymphs (Manual) Abs Monocytes (Manual) Absolute Eos (Manual) Abs Basophils (Manual) Toxic Granulation Platelet Comment Polychromasia Poikilocytosis Anisocytosis Tear Drop Cells Ovalocytes PT INR APTT VBG pH VBG pCO2 VBG HCO3 VBG Base Excess Sodium Potassium Chloride Carbon Dioxide Anion Gap BUN Creatinine Est GFR ( Amer) Est GFR (MDRD) Non-Af Glucose POC Glucose 237 H 217 H 190 H Lactic Acid Calcium Ionized Calcium [place] Phosphorus Magnesium Total Bilirubin Direct Bilirubin Neonat Total Bilirubin Neonat Direct Bilirubin Neonat Indirect Bili AST ALT Alkaline Phosphatase Ammonia Creatine Kinase CK-MB (CK-2) Troponin I NT-Pro-B Natriuret Pep Total Protein Albumin TSH Free T4 Free T3 pg/mL Urine Color Urine Appearance Urine pH Ur Specific [place] Urine Protein Urine Glucose (UA) Urine Ketones Urine Blood Urine Nitrite Urine Nitrite (Reflex) Urine Bilirubin Urine Urobilinogen Ur Leukocyte Esterase Leukocyte Esterase Rfl Urine WBC (Auto) Urine RBC (Auto) Urine WBC (Reflex) Squamous Epi Cells Auto Urine Mucus (Auto) Urine Ascorbic Acid Influenza A (Rapid) Influenza B (Rapid) Cervical Spine CT 11/17/19 00:00 IMPRESSION: MULTIPLE SCLEROTIC LESIONS IN THE VERTEBRAE CONSISTENT WITH BONY METASTASES. NO ACUTE FINDINGS IN THE CERVICAL SPINE. Head CT 11/17/19 00:00 IMPRESSION: SURGICAL CHANGES IN THE RIGHT FRONTAL LOBE WITH MILD ENCEPHALOMALACIA. MILD CHRONIC CHANGES OF ATROPHY AND MICROVASCULAR ISCHEMIA. NO ACUTE PROCESS. EVIDENCE OF ACUTE STROKE: NO. Chest X-Ray 11/17/19 12:54 IMPRESSION: LEFT LOWER LOBE INFILTRATE SUSPICIOUS FOR PNEUMONIA. Chest/Abdomen CTA 11/17/19 14:00 IMPRESSION: 1. NORMAL CTA OF THE CHEST. NO PULMONARY EMBOLI. 2. CARDIOMEGALY WITH BILATERAL PLEURAL EFFUSIONS AND COMPRESSIVE ATELECTASIS IN THE LUNG BASES. HAZY GROUND-GLASS OPACITIES THROUGHOUT BOTH LUNGS LIKELY REPRESENTS EARLY PULMONARY EDEMA. 3. PERICARDIAL EFFUSION. 4. EXTENSIVE SCLEROTIC BONY METASTASES. Chest X-Ray 11/18/19 06:00 IMPRESSION: Unchanged left retrocardiac opacity associated with air bronchograms. Carotid Doppler Study 11/19/19 00:00 IMPRESSION: NO HEMODYNAMICALLY SIGNIFICANT STENOSIS. Caps EKG: Shows supraventricular tachycardia. The rate is 158 bpm. The patient's echocardiogram is reported as having moderately reduced LV ejection fraction 40%. There is trace tricuspid regurgitation. Unable to calculate right ventricle systolic pressure due to lack of sufficient TR jet. Mild tricuspid regurgitation. No aortic stenosis or aortic regurgitation. Small pericardial effusion. IMPRESSION/recommendation: 1. Paroxysmal supraventricular tachycardia:: Terminated with 1 dose of adenosine. Recommend continue esmolol and titrate the dose up as needed with close watch on the patient's heart rate and the blood pressure. 2. Torticollis: Possibly secondary to underlying infection causing muscle spasm and pain versus secondary to metastatic cervical spine disease. 3. Hypertension blood pressure came up once the SVT was terminated. The patient is on vasopressin for concerns of possible sepsis. We will continue that. 4. Possible sepsis: Continue antibiotics and vasopressin. 5. 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 6. Possible left lower lobe pneumonia: Continue antibiotics. Continue hydration. 7. Cardiomyopathy. Most likely rate related. The patient and the son-in-law's states there is no prior cardiac issues with the patient. There is no history of congestive heart failure or any atrial arrhythmia. Once the patient's heart rate is controlled we will repeat the echo to see if it is rate related cardiomyopathy. 8. Anemia: Consider blood transfusion. 9. History of hypertension: At present blood pressure has come up and the patient is tolerating esmolol drip. We will hold off on the IV Lopressor when the patient is on esmolol. Medications reviewed. Medical regimen and management plan discussed with stock letterer Dr. Luke. Medical decision making is of high complexity. 60 minutes spent on this patient more than 50% time spent in direct patient care. Will follow
[2019-11-19] MEDS: TAMSULOSIN HCL 0.4 MG CAP.SR.24H PO SCH (17:22)
[2019-11-19] MEDS: ESMOLOL 2500 MG/NS 250 ML IV PRN ×2 (17:30→23:31)
--- NOTE | 2019-11-19 18:55 | RADIOLOGY REPORT (SQ) ---
EXAM DESCRIPTION: CAROTID DOPPLER COMPLETED DATE/TIME: 11/19/2019 3:02 pm REASON FOR STUDY: carotid obstruction COMPARISON: None. TECHNIQUE: Grayscale ultrasound, Doppler velocity and spectra, and color Doppler images acquired of the extra-cranial carotid and vertebral arteries. Images stored on PACS. LIMITATIONS: None. FINDINGS: RIGHT CAROTID CCA Velocities: Within normal limits. ICA Velocities Peak systolic 54 cm/s. End diastolic 23 cm/s. Proximal ICA/CCA peak systolic ratio 1.1. Intimal thickening. LEFT CAROTID CCA Velocities: Within normal limits. ICA Velocities Peak systolic 69 cm/s. End diastolic 33 cm/s. Proximal ICA/CCA peak systolic ratio 1.3. Intimal thickening. VERTEBRAL ARTERIES: Antegrade flow. Normal waveforms. SUBCLAVIAN ARTERIES: No finding. OTHER: No other significant finding. IMPRESSION: NO HEMODYNAMICALLY SIGNIFICANT STENOSIS. COMMENT: Quality ID #[id number]: Velocity criteria are extrapolated from the diameter data as defined by t [place] [employer] in Ultrasound Consensus Conference. Radiology 2003: 229; 340-346. TECHNICAL DOCUMENTATION: JOB ID: [id number] [employer]- All Rights Reserved Reading location - IP/workstation name: [email or web address]
--- NOTE | 2019-11-19 20:32 | PDOC CRITICAL CARE PROG REPORT ---
General Date:: 11/19/19 ICU Day:: 3 Hospital Day:: 3 Resuscitation Status: Full Code Medical Power of Guest History Clerk: Daughter Events in the past 12 to 24 Hours:: 11.19.2019: Patient's tachycardia has worsened today. He is asymptomatic. Also developed hypotension with beta-jennifer treatment. He was given a stat dose of low-dose vasopressin which improved his blood pressure. Of note, his torticollis has improved. 11.18.2019: Patient's tachycardia has improved with beta-jennifer therapy and IV fluids. He discloses no pain no abdominal discomfort no headache. His neck spasm has improved slightly but not dramatically. Review of systems relevant to events:: 11.19.2019: In concern for an atypical tachycardia syndrome a carotid ultrasound was done to assure that the torticollis was not causing carotid baroreceptor changes. This was essentially unremarkable. We also consulted cardiology who felt that this was an atypical atrial dysrhythmia and with the use of adenosine were able to convert him to a sinus rhythm at a rate of 70-80. We are grateful for cardiology's assistance. He is also been maintained on esmolol drip without any further hypotension. 11.18.2019: Patient had bedside echocardiogram which showed a minimal pleural effusion. Notably his IVC was definitively underfilled and had significant respirophasic changes when seen. - Medications: Vasopressors:: Esmolol drip; 1 dose of 10 units vasopressin Physical Exam Vital Signs: Temp Pulse Resp BP Pulse Ox 98 F 78 11 L 130/91 H 99 11/19/19 19:33 11/19/19 18:00 11/19/19 18:14 11/19/19 18:14 11/19/19 18:14 Intake & Output 11/18/19 11/19/19 11/20/19 06:59 06:59 06:59 Intake Total 3188 3081 2278 Output Total 1125 2175 0 Balance 2063 906 2278 Weight 70.2 kg 73.4 kg Weight/Height Weight 73.4 kg Height 6 ft General appearance: PRESENT: no acute distress, cooperative, well-developed, well-nourished Head exam: PRESENT: other - Postsurgical changes after craniotomy. ABSENT: normocephalic Eye exam: PRESENT: conjunctiva pink, PERRLA. ABSENT: conjunctival injection, nystagmus, scleral icterus Mouth exam: PRESENT: moist. ABSENT: neck supple Teeth exam: PRESENT: poor dentation Neck exam: PRESENT: tenderness - Improved., other - Much improved rotation of his neck. Less tender. ABSENT: carotid bruit Respiratory exam: PRESENT: clear to auscultation rebecca, unlabored. ABSENT: accessory muscle use, rales, rhonchi, tachypnea, wheezes Cardiovascular exam: PRESENT: RRR - Previously tachycardic on multiple examination now in normal sinus rhythm at 78, tachycardia Pulses: ABSENT: normal dorsalis pedis pul GI/Abdominal exam: PRESENT: normal bowel sounds, soft. 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 Slight right facial droop. These were present patient and chronic Psychiatric exam: PRESENT: appropriate affect, normal mood. ABSENT: homicidal ideation, suicidal ideation Focused psych exam: ABSENT: pressured speech, psychomotor agitation, restlessness Skin exam: PRESENT: dry, intact, warm. ABSENT: cyanosis, rash Laboratory/Radiographs Laboratory Results: 11/19/19 03:14 11/19/19 03:14 11/19/19 11/19/19 03:14 03:14 WBC 9.5 RBC 2.72 L Hgb 7.7 L Hct 23.0 L MCV 85 MCH 28.4 MCHC 33.6 RDW 21.4 H Plt Count 309 Seg Neutrophils % Not Reportable Sodium 141.3 Potassium 3.5 L Chloride 102 Carbon Dioxide 31 H Anion Gap 8 BUN 13 Creatinine 0.72 Est GFR ( Amer) > 60 Glucose 151 H Calcium 4.8 L* Phosphorus 2.6 Magnesium 1.8 11/17/19 17:35 Clean Catch Midstream Urine Culture - Final NO GROWTH 2 DAYS 11/17/19 11/17/19 11/17/19 13:25 13:25 13:25 Creatine Kinase 211 H CK-MB (CK-2) 0.43 Troponin I 0.051 NT-Pro-B Natriuret Pep 11/17/19 11/18/19 23:06 05:40 Creatine Kinase 182 H CK-MB (CK-2) Troponin I NT-Pro-B Natriuret Pep 317 H Impressions: Cervical Spine CT 11/17/19 00:00 IMPRESSION: MULTIPLE SCLEROTIC LESIONS IN THE VERTEBRAE CONSISTENT WITH BONY METASTASES. NO ACUTE FINDINGS IN THE CERVICAL SPINE. Head CT 11/17/19 00:00 IMPRESSION: SURGICAL CHANGES IN THE RIGHT FRONTAL LOBE WITH MILD ENCEPHALOMALACIA. MILD CHRONIC CHANGES OF ATROPHY AND MICROVASCULAR ISCHEMIA. NO ACUTE PROCESS. EVIDENCE OF ACUTE STROKE: NO. Chest/Abdomen CTA 11/17/19 14:00 IMPRESSION: 1. NORMAL CTA OF THE CHEST. NO PULMONARY EMBOLI. 2. CARDIOMEGALY WITH BILATERAL PLEURAL EFFUSIONS AND COMPRESSIVE ATELECTASIS IN THE LUNG BASES. HAZY GROUND-GLASS OPACITIES THROUGHOUT BOTH LUNGS LIKELY REPRESENTS EARLY PULMONARY EDEMA. 3. PERICARDIAL EFFUSION. 4. EXTENSIVE SCLEROTIC BONY METASTASES. Chest X-Ray 11/18/19 06:00 IMPRESSION: Unchanged left retrocardiac opacity associated with air bronchograms. Carotid Doppler Study 11/19/19 00:00 IMPRESSION: NO HEMODYNAMICALLY SIGNIFICANT STENOSIS. All labs, radiographs, diagnostic studies and EKGs were personally reviewed: Yes In addition, reports of radiographic and diagnostic studies were read: Yes Assessment and Plan - Diagnosis (1) Sepsis with acute organ dysfunction without septic shock Qualifiers: Sepsis type: sepsis due to unspecified organism Severe sepsis acute organ dysfunction type: acute renal failure Acute renal failure type: with other specified pathological lesion Qualified Code(s): A41.9 - Sepsis, unspecified organism; R65.20 - Severe sepsis without septic shock; N17.9 - Acute kidney failure, unspecified Is this a current diagnosis for this admission?: Yes Plan: Continue antibiotics for 24 more hours. No clear source is noted. He does have 8 white cells in his urine and will await culture. Chest x-ray and CAT scan were consistent with groundglass interstitial changes. We will continue antibiotics for another 24 hours and follow blood cultures. At this point I am less impressed that this is sepsis and more related to dehydration. (2) Acute kidney injury Is this a current diagnosis for this admission?: Yes Plan: Much improved (3) Sepsis Qualifiers: Sepsis type: sepsis due to unspecified organism Sepsis acute organ dysfunction status: without acute organ dysfunction Qualified Code(s): A41.9 - Sepsis, unspecified organism Is this a current diagnosis for this admission?: Yes Plan: Suspicious that this is not sepsis however we will continue antibiotics. (4) Sinus tachycardia Is this a current diagnosis for this admission?: Yes Plan: Now much improved. Wean esomolol (5) Torticollis, acquired Is this a current diagnosis for this admission?: Yes Plan: Improved (6) Metastasis to brain Is this a current diagnosis for this admission?: Yes (7) Pain due to malignant neoplasm metastatic to bone Is this a current diagnosis for this admission?: Yes (8) Anorexia Is this a current diagnosis for this admission?: Yes (9) Moderate protein-energy malnutrition Is this a current diagnosis for this admission?: Yes (10) Prostate cancer metastatic to bone Is this a current diagnosis for this admission?: Yes Plan Summary: 11.19.2019: Patient's tachycardia is now resolved and we will wean the esmolol drip. And we are extremely grateful for cardiology's assistance in this atypical tachycardic case. Impressively, his torticollis has improved and there is no evidence for carotid anatomy dysfunction. Continue supportive care. Continue antibiotics for another 24 hours to assure that all cultures are negative. At this point his tachycardia appears to be unrelated to any sepsis crisis. No function has improved. His Amanda has been removed and will follow for any urinary retention. No respiratory dysfunction. Hypotension has resolved and was most likely related to medications. Will watch as the introduction of oral beta-blockers is instituted. 11.18.2019: Patient has had improvement with IV fluids. Given the findings on his official echocardiogram I am concerned that his dehydration is related to adrenal insufficiency. He has been on steroids. Because of the dramatic torticollis and possible pain related to bony metastatic disease I have given him a dose of Decadron and start him on Flexeril. Throughout the day multiple reexaminations were done which showed improvement he is able to rotate his head. Furthermore his tachycardia has improved with beta-jennifer and fluid therapy. We will continue. A lengthy discussion with the family and the patient about his metastatic disease. There appears to be some ambiguity about the extent of his disease. F urther discussion with the family. Continue supportive care. Potential for transfer once his tachycardia has improved. Turn for heart failure is paramount given the high heart rate. This may have explained his groundglass appearance and he may have had a physiologic left ventricular outflow tract obstruction leading to the groundglass appearance. No diuresis and continue IV fluids is the treatment. Critical Time Critical Time (minutes): 40 Level of Care: ICU Within: within 48 hours -: 1. The care of a critical patient is a dynamic process. This note is a sales representative adding machines synopsis but static in nature. The timeframe for treatments given in order is not necessarily the actual time these treatments may have been done. 2. This patient requires critical care secondary to ongoing requirements for therapy not offered or safe outside the critical care environment. Transfer to a lower level of care will result in altered life or limb morbidity and mortality. 3. Multidisciplinary rounds completed. 4. ABCDE bundle addressed.
--- NOTE | 2019-11-19 22:04 | EKG REPORT ---
SEVERITY:- ABNORMAL ECG - SUPRAVENTRICULAR TACHYCARDIA : Confirmed by: Massiel Marcum 19-Nov-2019 22:02:45
--- NOTE | 2019-11-19 22:04 | EKG REPORT ---
SEVERITY:- ABNORMAL ECG - SINUS RHYTHM LOW VOLTAGE IN FRONTAL LEADS PROLONGED QT INTERVAL : Confirmed by: Massiel Marcum 19-Nov-2019 22:02:36
[2019-11-19 22:49] LABS: VANCOMYCIN,TROUGH 21.8 ug/mL (5.0-20.0)
[2019-11-20] MEDS: HEPARIN SOD (PORCINE) 5,000 UNIT/ML 1 ML VIAL SUBCUT SCH ×3 (02:52→17:31)
[2019-11-20] MEDS: CEFEPIME 1 GM/D5W RTU 1 GM/50 ML RTUPB IV SCH (02:52)
[2019-11-20] MEDS: HYDROCORTISONE SOD SUCCINATE INJ/PF 100 MG/2 ML SDV IV SCH ×3 (05:31→22:13)
[2019-11-20 06:02] LABS: MEAN CORPUSCULAR HEMOGLOBIN 28.2 pg (27.0-33.4); MEAN CORPUSCULAR HGB CONC 33.2 g/dL (32.0-36.0); MEAN CORPUSCULAR VOLUME 85 fl (80-97); PLATELET COUNT 314 10^3/uL (150-450); RED BLOOD COUNT 2.58 10^6/uL (4.35-5.55); RED CELL DISTRIBUTION WIDTH 21.4 % (11.5-14.0); WHITE BLOOD COUNT 9.6 10^3/uL (4.0-10.5)
[2019-11-20] MEDS: RINGERS SOLUTION,LACTATED 1,000 ML IV PRN ×4 (06:05→22:38)
[2019-11-20 06:14] LABS: PHOSPHORUS 3.2 mg/dL (2.5-4.5)
[2019-11-20 06:24] LABS: HEMOGLOBIN 7.3 g/dL (13.5-17.0)
[2019-11-20 06:29] LABS: ABSOLUTE LYMPHOCYTES# (MANUAL) 0.5 10^3/uL (0.5-4.7); ABSOLUTE MONOCYTES # (MANUAL) 0.3 10^3/uL (0.1-1.4); BASOPHILS % (MANUAL) 0 % (0-2); EOSINOPHILS % (MANUAL) 1 % (0-6); LYMPHOCYTES % (MANUAL) 5 % (13-45); MONOCYTES % (MANUAL) 3 % (3-13); NUCLEATED RED BLOOD CELLS 4 /100 WBC (0); SEGMENTED NEUTROPHILS % (MAN) 91 % (42-78); TOTAL CELLS COUNTED 100
[2019-11-20 06:31] LABS: ANISOCYTOSIS 3+; OVALOCYTES SLIGHT; PLATELET CLUMPS PRESENT; PLATELET COMMENT ADEQUATE; POIKILOCYTOSIS SLIGHT; POLYCHROMASIA SLIGHT; SCHISTOCYTES SLIGHT
[2019-11-20] MEDS: INSULIN REG, HUMAN 100 UNIT/ML 3 ML VIAL (PYX) SUBCUT SCH ×4 (08:01→22:12)
--- NOTE | 2019-11-20 08:11 | PDOC PROGRESS REPORT ---
Subjective Progress Note for:: 11/20/19 Subjective:: Patient seems a little bit better today Reason For Visit: SEPSIS,TACHYCARDIA,RENAL FAILURE Physical Exam Vital Signs: Temp Pulse Resp BP Pulse Ox 98 F 77 12 132/90 H 98 11/20/19 03:42 11/19/19 20:53 11/20/19 06:00 11/20/19 05:52 11/20/19 06:00 Intake & Output 11/19/19 11/20/19 11/21/19 06:59 06:59 06:59 Intake Total 3081 4510 Output Total 2175 300 Balance 906 4210 Weight 73.4 kg 78.2 kg General appearance: PRESENT: no acute distress, well-developed, well-nourished Head exam: PRESENT: atraumatic, normocephalic Eye exam: PRESENT: conjunctiva pink, EOMI, PERRLA. ABSENT: scleral icterus Ear exam: PRESENT: normal external ear exam Mouth exam: PRESENT: moist, tongue midline Neck exam: ABSENT: carotid bruit, JVD, lymphadenopathy, thyromegaly Respiratory exam: PRESENT: clear to auscultation rebecca. ABSENT: rales, rhonchi, wheezes Cardiovascular exam: PRESENT: RRR. ABSENT: diastolic murmur, rubs, systolic murmur Pulses: PRESENT: normal dorsalis pedis pul Vascular exam: PRESENT: normal capillary refill GI/Abdominal exam: PRESENT: normal bowel sounds, soft. ABSENT: distended, guarding, mass, organolmegaly, rebound, tenderness Rectal exam: PRESENT: deferred Extremities exam: PRESENT: full ROM. ABSENT: calf tenderness, clubbing, pedal edema Neurological exam: PRESENT: alert, awake, oriented to person, oriented to place, oriented to time, oriented to situation, CN II-XII grossly intact. ABSENT: motor sensory deficit Psychiatric exam: PRESENT: appropriate affect, normal mood. ABSENT: homicidal ideation, suicidal ideation Skin exam: PRESENT: dry, intact, warm. ABSENT: cyanosis, rash Results Laboratory Results: 11/20/19 05:35 11/19/19 21:55 11/19/19 11/20/19 11/20/19 21:55 05:35 05:35 WBC 9.6 RBC 2.58 L Hgb 7.3 L Hct 22.0 L MCV 85 MCH 28.2 MCHC 33.2 RDW 21.4 H Plt Count 314 Seg Neutrophils % Not Reportable Creatinine 1.34 H Est GFR ( Amer) > 60 Phosphorus 3.2 Magnesium 1.6 11/17/19 17:35 Clean Catch Midstream Urine Culture - Final NO GROWTH 2 DAYS 11/17/19 11/17/19 11/17/19 13:25 13:25 13:25 Creatine Kinase 211 H CK-MB (CK-2) 0.43 Troponin I 0.051 NT-Pro-B Natriuret Pep 11/17/19 11/18/19 23:06 05:40 Creatine Kinase 182 H CK-MB (CK-2) Troponin I NT-Pro-B Natriuret Pep 317 H Impressions: Cervical Spine CT 11/17/19 00:00 IMPRESSION: MULTIPLE SCLEROTIC LESIONS IN THE VERTEBRAE CONSISTENT WITH BONY METASTASES. NO ACUTE FINDINGS IN THE CERVICAL SPINE. Head CT 11/17/19 00:00 IMPRESSION: SURGICAL CHANGES IN THE RIGHT FRONTAL LOBE WITH MILD ENCEPHALOMALACIA. MILD CHRONIC CHANGES OF ATROPHY AND MICROVASCULAR ISCHEMIA. NO ACUTE PROCESS. EVIDENCE OF ACUTE STROKE: NO. Chest/Abdomen CTA 11/17/19 14:00 IMPRESSION: 1. NORMAL CTA OF THE CHEST. NO PULMONARY EMBOLI. 2. CARDIOMEGALY WITH BILATERAL PLEURAL EFFUSIONS AND COMPRESSIVE ATELECTASIS IN THE LUNG BASES. HAZY GROUND-GLASS OPACITIES THROUGHOUT BOTH LUNGS LIKELY REPRESENTS EARLY PULMONARY EDEMA. 3. PERICARDIAL EFFUSION. 4. EXTENSIVE SCLEROTIC BONY METASTASES. Chest X-Ray 11/18/19 06:00 IMPRESSION: Unchanged left retrocardiac opacity associated with air bronchograms. Carotid Doppler Study 11/19/19 00:00 IMPRESSION: NO HEMODYNAMICALLY SIGNIFICANT STENOSIS. Assessment & Plan - Diagnosis (1) Metastatic adenocarcinoma to prostate Is this a current diagnosis for this admission?: Yes Plan: Patient getting a little bit stronger, hopefully with physical therapy can walk a few steps today. We would like to consider further therapy as an outpatient. - Time Time Spent with patient: 25-34 minutes
[2019-11-20] MEDS: PREDNISONE 10 MG TABLET PO SCH (09:14)
[2019-11-20] MEDS: METOPROLOL TARTRATE 50 MG TABLET PO SCH ×2 (09:14→22:13)
[2019-11-20] MEDS: LEVETIRACETAM 500 MG TABLET PO SCH ×2 (09:14→22:13)
[2019-11-20] MEDS: FENTANYL 25 MCG/HR PATCH.TD72 TOP SCH (09:20)
[2019-11-20] MEDS: TAMSULOSIN HCL 0.4 MG CAP.SR.24H PO SCH (17:31)
--- NOTE | 2019-11-20 20:19 | PDOC CRITICAL CARE PROG REPORT ---
General Date:: 11/20/19 ICU Day:: 4 Hospital Day:: 4 Resuscitation Status: Full Code Medical Power of Mica Washer Gluer: Daughter Events in the past 12 to 24 Hours:: 11.20.2019: Patient has remained in a normal sinus rhythm since the adenosine was given yesterday. On rounds vasopressin has been discontinued and esmolol was discontinued. Patient had confusion and was agitated last evening but today is lucid and has no agitation or delirium. 11.19.2019: Patient's tachycardia has worsened today. He is asymptomatic. Also developed hypotension with beta-jennifer treatment. He was given a stat dose of low-dose vasopressin which improved his blood pressure. Of note, his torticollis has improved. 11.18.2019: Patient's tachycardia has improved with beta-jennifer therapy and IV fluids. He discloses no pain no abdominal discomfort no headache. His neck spasm has improved slightly but not dramatically. Review of systems relevant to events:: 11.20.2019: Carotid ultrasound was unremarkable. Torticollis is remarkably improved and patient has now good rotation of his head and neck. He has no pain. He is anorexic and not eating well. 11.19.2019: In concern for an atypical tachycardia syndrome a carotid ultrasound was done to assure that the torticollis was not causing carotid baroreceptor changes. This was essentially unremarkable. We also consulted cardiology who felt that this was an atypical atrial dysrhythmia and with the use of adenosine were able to convert him to a sinus rhythm at a rate of 70-80. We are grateful for cardiology's assistance. He is also been maintained on esmolol drip without any further hypotension. 11.18.2019: Patient had bedside echocardiogram which showed a minimal pleural effusion. Notably his IVC was definitively underfilled and had significant respirophasic changes when seen. - Medications: Medications reviewed and adjusted accordingly: Yes Vasopressors:: Esmolol drip 50 mcg/kg; Vasopressin off Sedation:: None Physical Exam Vital Signs: Temp Pulse Resp BP Pulse Ox 98.3 F 69 15 129/71 H 99 11/20/19 08:00 11/20/19 08:30 11/20/19 08:00 11/20/19 08:00 11/20/19 08:00 Intake & Output 11/19/19 11/20/19 11/21/19 06:59 06:59 06:59 Intake Total 3081 4560 Output Total 2176 300 Balance 906 4260 Weight 73.4 kg 78.2 kg Weight/Height Weight 78.2 kg Height 6 ft General appearance: PRESENT: no acute distress, cooperative, well-developed, well-nourished Exam: Pleasant non-toxic 69 yo black male, improved, nad, chronically ill Eye exam: PRESENT: conjunctiva pink, PERRLA. ABSENT: conjunctival injection, EOMI - Has slight ptosis on left., nystagmus, scleral icterus Teeth exam: PRESENT: poor dentation Neck exam: PRESENT: other - Neck rotation much improved. Able to flex and bend slightly to right compared to yesterday.. ABSENT: carotid bruit, full ROM, JVD, lymphadenopathy Respiratory exam: PRESENT: clear to auscultation rebecca, unlabored. ABSENT: accessory muscle use, rales, rhonchi, tachypnea, wheezes Cardiovascular exam: PRESENT: RRR, +S1, +S2. ABSENT: bradycardia Pulses: ABSENT: normal dorsalis pedis pul GI/Abdominal exam: PRESENT: normal bowel sounds, soft. ABSENT: ascites, distended, guarding, mass, organolmegaly, rebound, tenderness Rectal exam: PRESENT: deferred Extremities exam: PRESENT: pedal edema. ABSENT: tenderness Musculoskeletal exam: ABSENT: deformity, dislocation Neurological exam: PRESENT: awake, oriented to person, oriented to place, oriented to time, motor sensory deficit - globally weak and left upper arm slightly weaker than right today. Psychiatric exam: PRESENT: flat affect Focused psych exam: ABSENT: pressured speech, psychomotor agitation, restlessness Skin exam: PRESENT: dry, intact, warm. ABSENT: cyanosis, rash Tubes/Lines: PRESENT: Other - Left subcutaneous medi-port Laboratory/Radiographs Laboratory Results: 11/20/19 05:35 11/19/19 21:55 11/19/19 11/20/19 11/20/19 21:55 05:35 05:35 WBC 9.6 RBC 2.58 L Hgb 7.3 L Hct 22.0 L MCV 85 MCH 28.2 MCHC 33.2 RDW 21.4 H Plt Count 314 Seg Neutrophils % Not Reportable Creatinine 1.34 H Est GFR ( Amer) > 60 Phosphorus 3.2 Magnesium 1.6 11/17/19 17:35 Clean Catch Midstream Urine Culture - Final NO GROWTH 2 DAYS 11/17/19 11/17/19 11/17/19 13:25 13:25 13:25 Creatine Kinase 211 H CK-MB (CK-2) 0.43 Troponin I 0.051 NT-Pro-B Natriuret Pep 11/17/19 11/18/19 23:06 05:40 Creatine Kinase 182 H CK-MB (CK-2) Troponin I NT-Pro-B Natriuret Pep 317 H Impressions: Cervical Spine CT 11/17/19 00:00 IMPRESSION: MULTIPLE SCLEROTIC LESIONS IN THE VERTEBRAE CONSISTENT WITH BONY METASTASES. NO ACUTE FINDINGS IN THE CERVICAL SPINE. Head CT 11/17/19 00:00 IMPRESSION: SURGICAL CHANGES IN THE RIGHT FRONTAL LOBE WITH MILD ENCEP HALOMALACIA. MILD CHRONIC CHANGES OF ATROPHY AND MICROVASCULAR ISCHEMIA. NO ACUTE PROCESS. EVIDENCE OF ACUTE STROKE: NO. Chest/Abdomen CTA 11/17/19 14:00 IMPRESSION: 1. NORMAL CTA OF THE CHEST. NO PULMONARY EMBOLI. 2. CARDIOMEGALY WITH BILATERAL PLEURAL EFFUSIONS AND COMPRESSIVE ATELECTASIS IN THE LUNG BASES. HAZY GROUND-GLASS OPACITIES THROUGHOUT BOTH LUNGS LIKELY REPRESENTS EARLY PULMONARY EDEMA. 3. PERICARDIAL EFFUSION. 4. EXTENSIVE SCLEROTIC BONY METASTASES. Chest X-Ray 11/18/19 06:00 IMPRESSION: Unchanged left retrocardiac opacity associated with air bronchograms. Carotid Doppler Study 11/19/19 00:00 IMPRESSION: NO HEMODYNAMICALLY SIGNIFICANT STENOSIS. All labs, radiographs, diagnostic studies and EKGs were personally reviewed: Yes In addition, reports of radiographic and diagnostic studies were read: Yes Assessment and Plan - Diagnosis (1) Atrial dysrhythmia Is this a current diagnosis for this admission?: Yes Plan: Now resolved (2) Sinus tachycardia Is this a current diagnosis for this admission?: Yes (3) Acute kidney injury Is this a current diagnosis for this admission?: Yes Plan: Much improved (4) Torticollis, acquired Is this a current diagnosis for this admission?: Yes Plan: Much Improved (5) Metastasis to brain Is this a current diagnosis for this admission?: Yes (6) Pain due to malignant neoplasm metastatic to bone Is this a current diagnosis for this admission?: Yes (7) Anorexia Is this a current diagnosis for this admission?: Yes (8) Moderate protein-energy malnutrition Is this a current diagnosis for this admission?: Yes (9) Prostate cancer metastatic to bone Is this a current diagnosis for this admission?: Yes (10) Sepsis with acute organ dysfunction without septic shock Qualifiers: Sepsis type: sepsis due to unspecified organism Severe sepsis acute organ dysfunction type: acute renal failure Acute renal failure type: with other specified pathological lesion Qualified Code(s): A41.9 - Sepsis, unspecified organism; R65.20 - Severe sepsis without septic shock; N17.9 - Acute kidney failure, unspecified Is this a current diagnosis for this admission?: Yes Plan: 11.20.2019: Cultures are negative and no source for infection has been found. Antibiotics have been discontinued. At this point this appears to be dehydratio n with symptomatic tachycardia and no longer appears to be sepsis. Continue antibiotics for 24 more hours. No clear source is noted. He does have 8 white cells in his urine and will await culture. Chest x-ray and CAT scan were consistent with groundglass interstitial changes. We will continue antibiotics for another 24 hours and follow blood cultures. At this point I am less impressed that this is sepsis and more related to dehydration. (11) Sepsis Qualifiers: Sepsis type: sepsis due to unspecified organism Sepsis acute organ dys function status: without acute organ dysfunction Qualified Code(s): A41.9 - Sepsis, unspecified organism Is this a current diagnosis for this admission?: Yes Plan: Confirmed that this is not sepsis. 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 Hypotension has improved as well. Patient is anorexic and does not feel like eating. Has widely metastatic prostate cancer with metastatic disease to the bone. Will have dietary assist with nutritional supplementation. Been his advanced disease I placed a palliative care consult to both Dr. Patricia and the palliative care team. Have been attempting to educate the family about the extent of his disease and anorexia related to malignancy. We will attempt to downgrade the patient if he remained stable off medications. Antibiotics have been discontinued and this does not appear to be sepsis. We will start weaning steroids as well. Continue supportive care 11.19.2019: Patient's tachycardia is now resolved and we will wean the esmolol drip. And we are extremely grateful for cardiology's assistance in this atypical tachycardic case. Impressively, his torticollis has improved and there is no evidence for carotid anatomy dysfunction. Continue supportive care. Continue antibiotics for another 24 hours to assure that all cultures are negative. At this point his tachycardia appears to be unrelated to any sepsis crisis. No function has improved. His Amanda has been removed and will follow for any urinary retention. No respiratory dysfunction. Hypotension has resolved and was most likely related to medications. Will watch as the introduction of oral beta-blockers is instituted. 11.18.2019: Patient has had improvement with IV fluids. Given the findings on his official echocardiogram I am concerned that his dehydration is related to adrenal in sufficiency. He has been on steroids. Because of the dramatic torticollis and possible pain related to bony metastatic disease I have given him a dose of Decadron and start him on Flexeril. Throughout the day multiple reexaminations were done which showed improvement he is able to rotate his head. Furthermore his tachycardia has improved with beta-jennifer and fluid therapy. We will continue. A lengthy discussion with the family and the patient about his metastatic disease. There appears to be some ambiguity about the extent of his disease. Further discussion with the family. Continue supportive care. Potential for transfer once his tachycardia has improved. Turn for heart failure is paramount given the high heart rate. This may have explained his groundglass appearance and he may have had a physiologic left ventricular outflow tract obstruction leading to the groundglass appear ance. No diuresis and continue IV fluids is the treatment. Critical Time Critical Time (minutes): 42 Level of Care: ICU Anticipated discharge: Home with Homehealth Within: within 48 hours -: 1. The care of a critical patient is a dynamic process. This note is a outside sales account representative synopsis but static in nature. The timeframe for treatments given in order is not necessarily the actual time these treatments may have been done. 2. This patient requires critical care secondary to ongoing requirements for therapy not offered or safe outside the critical care environment. Transfer to a lower level of care will result in altered life or limb morbidity and mortality. 3. Multidisciplinary rounds completed. 4. ABCDE bundle addressed.
[2019-11-20] MEDS ORDERED: FENTANYL 25 MCG/HR PATCH.TD72 TD SCH (22:00)
--- NOTE | 2019-11-20 23:30 | Progress Note ---
Provider Note Provider Note: CARDIOLOGY PROGRESS NOTE by Dr. Mavis Mandel on 11/20/2019. OBJECTIVE: The patient states that he has no neck pain. And his torticollis is resolved. He denies any chest pain or discomfort. There is no shortness of breath. There is no PND orthopnea. The patient remains in sinus rhythm with no recurrence of SVT. There is no TIA CVA symptoms. Note last night he seemed to be confused and agitated. At present he is awake alert oriented x3 with no focal deficit. He does not appear to be anxious or agitated. PHYSICAL EXAMINATION: The patient appears to be chronically ill. Mildly obese. In no acute distress. He is lying flat in bed. Selected Entries 11/20/19 12:00 Temperature 97.5 F Temperature Axillary Source Pulse Rate 68 Respiratory 14 Rate Blood Pressure 143/99 H [Upper Arm] Blood Pressure 113 Mean [Upper Arm ] Blood Pressure Supine Position [Upper Arm] O2 Sat by Pulse 98 Oximetry Oxygen Delivery Room Air Method ( includes room air) HEAD: Scar of prior right craniotomy present. Normocephalic. EYES: Pupils are equal round regular reactive to light and accommodation. There is conjunctival pallor. There is no scleral icterus. EARS: Tympanic membranes are intact. External auditory canals are clear. NOSE nose: There is no deviated nasal septum. There is no inflammation nasal mucous membrane. MOUTH: Mucous membranes of mouth are slightly dry. There is no bleeding from the gums. THROAT: There is no redness of the oropharynx. There is no exudates. SKIN: There is no petechia or ecchymosis. There is no skin lesions or skin rashes. 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 Right side of neck is tender neck movements are limited due to pain and muscle spasm. There is no palpable lymphadenopathy. There is no goiter. There is no accessory muscle respiration use. TRACHEA is central. LUNGS: Clear to auscultation percussion. Heart: S1-S2 is heard. There is no S3 gallop. There is no S4 gallop. There is mild mitral regurgitation murmur present. There is no aortic stenosis or aortic regurgitation murmur. There is no S3 gallop. There is no S4 gallop. S1 is of normal intensity. There is no rub. ABDOMEN: Soft nontender. There is no hepatosplenomegaly bowel sounds are well heard. EXTREMITIES: Femorals are well felt. There is no femoral bruits. Leg pulses well felt. There is no pedal edema. There is no DVT or cellulitis. There is no cyanosis or clubbing. NUTRITIONAL HEALTH COACH: The patient is conscious awake alert oriented to place person and time. And also situation. He has weak upper extremity and lower extremity. No focal deficits though. PSYCHIATRIC: Patient is in spite of his low blood pressures judgment site seem to be intact. He does not appear to be anxious or agitated. Labs- All tests 24 hr 11/20/19 11/20/19 11/20/19 05:35 05:35 07:51 WBC 9.6 RBC 2.58 L Hgb 7.3 L Hct 22.0 L MCV 85 MCH 28.2 MCHC 33.2 RDW 21.4 H Plt Count 314 Lymph % (Auto) Not Reportable Pacific % (Auto) Not Reportable Eos % (Auto) Not Reportable Baso % (Auto) Not Reportable Absolute Neuts (auto) Not Reportable Absolute Lymphs (auto) Not Reportable Absolute Monos (auto) Not Reportable Absolute Eos (auto) Not Reportable Absolute Basos (auto) Not Reportable Total Counted 100 Seg Neutrophils % Not Reportable Seg Neuts % (Manual) 91 H Lymphocytes % (Manual) 5 L Monocytes % (Manual) 3 Eosinophils % (Manual) 1 Basophils % (Manual) 0 Abs Neuts (Manual) 8.7 H Abs Lymphs (Manual) 0.5 Abs Monocytes (Manual) 0.3 Absolute Eos (Manual) 0.1 Abs Basophils (Manual) 0.0 Nucleated RBCs 4 Clumped Platelets PRESENT Platelet Comment ADEQUATE Polychromasia SLIGHT Poikilocytosis SLIGHT Basophilic Stippling PRESENT Anisocytosis 3+ Ovalocytes SLIGHT Schistocytes SLIGHT POC Glucose 186 H Phosphorus 3.2 Magnesium 1.6 11/20/19 11/20/19 11/20/19 11:30 16:09 22:03 WBC RBC Hgb Hct MCV MCH MCHC RDW Plt Count Lymph % (Auto) Pacific % (Auto) Eos % (Auto) Baso % (Auto) Absolute Neuts (auto) Absolute Lymphs (auto) Absolute Monos (auto) Absolute Eos (auto) Absolute Basos (auto) Total Counted Seg Neutrophils % Seg Neuts % (Manual) Lymphocytes % (Manual) Monocytes % (Manual) Eosinophils % (Manual) Basophils % (Manual) Abs Neuts (Manual) Abs Lymphs (Manual) Abs Monocytes (Manual) Absolute Eos (Manual) Abs Basophils (Manual) Nucleated RBCs Clumped Platelets Platelet Comment Polychromasia Poikilocytosis Basophilic Stippling Anisocytosis Ovalocytes Schistocytes POC Glucose 166 H 167 H 159 H Phosphorus Magnesium Cervical Spine CT 11/17/19 00:00 IMPRESSION: MULTIPLE SCLEROTIC LESIONS IN THE VERTEBRAE CONSISTENT WITH BONY METASTASES. NO ACUTE FINDINGS IN THE CERVICAL SPINE. Head CT 11/17/19 00:00 IMPRESSION: SURGICAL CHANGES IN THE RIGHT FRONTAL LOBE WITH MILD ENCEPHALOMALAC IA. MILD CHRONIC CHANGES OF ATROPHY AND MICROVASCULAR ISCHEMIA. NO ACUTE PROCESS. EVIDENCE OF ACUTE STROKE: NO. Chest X-Ray 11/17/19 12:54 IMPRESSION: LEFT LOWER LOBE INFILTRATE SUSPICIOUS FOR PNEUMONIA. Chest/Abdomen CTA 11/17/19 14:00 IMPRESSION: 1. NORMAL CTA OF THE CHEST. NO PULMONARY EMBOLI. 2. CARDIOMEGALY WITH BILATERAL PLEURAL EFFUSIONS AND COMPRESSIVE ATELECTASIS IN THE LUNG BASES. HAZY GROUND-GLASS OPACITIES THROUGHOUT BOTH LUNGS LIKELY REPRESENTS EARLY PULMONARY EDEMA. 3. PERICARDIAL EFFUSION. 4. EXTENSIVE SCLEROTIC BONY METASTASES. Chest X-Ray 11/18/19 06:00 IMPRESSION: Unchanged left retrocardiac opacity associated with air bronchograms. Carotid Doppler Study 11/19/19 00:00 IMPRESSION: NO HEMODYNAMICALLY SIGNIFICANT STENOSIS. IMPRESSION/recommendation: 1. Paroxysmal supraventricular tachycardia:: Terminated with 1 dose of adenosin e. The patient's vasopressin and esmolol drip has been discontinued yesterday. The patient is on oral metoprolol and tolerating it well. He remains in sinus rhythm. 2. Torticollis: Possibly secondary to underlying infection causing muscle spasm and pain versus secondary to metastatic cervical spine disease. This is resolved 3. Hypertension blood pressure came up once the SVT was terminated. The patient is on vasopressin for concerns of possible sepsis. We will continue that. At present blood pressures well controlled. 4. Possible sepsis: Continue antibiotics and vasopressin. 5. 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 6. Possible left lower lobe pneumonia: Continue antibiotics. Continue hydration. 7. Cardiomyopathy. Most likely rate related. The patient and the son-in-law's states there is no prior cardiac issues with the patient. There is no history of congestive heart failure or any atrial arrhythmia. Once the patient's heart rate is controlled we will repeat the echo to see if it is rate related cardiomyopathy. 8. Anemia: Consider blood transfusion. 9. History of hypertension: At present blood pressure has come up and the patient is tolerating esmolol drip. We will hold off on the IV Lopressor when the patient is on esmolol. Medications reviewed. Medical regimen and management plan discussed with family development specialist Dr. Luke. Medical decision making is of moderate complexity. 40 minutes spent on this patient Will follow.
[2019-11-21] MEDS: HEPARIN SOD (PORCINE) 5,000 UNIT/ML 1 ML VIAL SUBCUT SCH ×3 (02:45→17:51)
[2019-11-21 04:10] LABS: MEAN CORPUSCULAR HGB CONC 33.2 g/dL (32.0-36.0); MEAN CORPUSCULAR VOLUME 85 fl (80-97); PLATELET COUNT 338 10^3/uL (150-450); RED BLOOD COUNT 2.73 10^6/uL (4.35-5.55); RED CELL DISTRIBUTION WIDTH 21.6 % (11.5-14.0); WHITE BLOOD COUNT 12.1 10^3/uL (4.0-10.5)
[2019-11-21 04:29] LABS: ABSOLUTE LYMPHOCYTES# (MANUAL) 0.2 10^3/uL (0.5-4.7); ABSOLUTE MONOCYTES # (MANUAL) 0.8 10^3/uL (0.1-1.4); BAND NEUTROPHILS % (MANUAL) 3 % (3-5); BASOPHILS % (MANUAL) 0 % (0-2); EOSINOPHILS % (MANUAL) 0 % (0-6); LYMPHOCYTES % (MANUAL) 2 % (13-45); MONOCYTES % (MANUAL) 7 % (3-13); SEGMENTED NEUTROPHILS % (MAN) 88 % (42-78); TOTAL CELLS COUNTED 100
[2019-11-21 04:30] LABS: ANISOCYTOSIS 3+; PLATELET COMMENT ADEQUATE; POLYCHROMASIA SLIGHT
[2019-11-21 04:33] LABS: ANION GAP 10 (5-19); BLOOD UREA NITROGEN 27 mg/dL (7-20); CARBON DIOXIDE 28 mmol/L (22-30); CHLORIDE 104 mmol/L (98-107); GLUCOSE 131 mg/dL (75-110); HEMOGLOBIN 7.6 g/dL (13.5-17.0); PHOSPHORUS 2.9 mg/dL (2.5-4.5); POTASSIUM 3.1 mmol/L (3.6-5.0)
[2019-11-21 04:45] LABS: CALCIUM 4.5 mg/dL (8.4-10.2)
[2019-11-21] MEDS ORDERED: CALCIUM GLUCONATE 1000 MG/10 ML INJ IV ONE (05:30)
[2019-11-21] MEDS: HYDROCORTISONE SOD SUCCINATE INJ/PF 100 MG/2 ML SDV IV SCH (05:47)
[2019-11-21] MEDS: INSULIN REG, HUMAN 100 UNIT/ML 3 ML VIAL (PYX) SUBCUT SCH ×4 (08:10→21:23)
[2019-11-21] MEDS: LEVETIRACETAM 500 MG TABLET PO SCH ×2 (09:40→21:23)
[2019-11-21] MEDS: METOPROLOL TARTRATE 50 MG TABLET PO SCH (09:40)
[2019-11-21] MEDS: PREDNISONE 10 MG TABLET PO SCH (09:40)
[2019-11-21] MEDS: MAGNESIUM SULFATE/D5W 1 GM/100 ML RTUPB IV SCH ×3 (09:44→12:39)
[2019-11-21] MEDS ORDERED: POTASSIUM CHLORIDE 20 MEQ PACKET PO ONE (10:00)
[2019-11-21] MEDS ORDERED: (PENDING PHARMACY ID) (Linagliptin [Tradjenta] 5 MG) PO SCH (13:00)
--- NOTE | 2019-11-21 13:19 | PDOC CRITICAL CARE PROG REPORT ---
General Date:: 11/21/19 ICU Day:: 5 Hospital Day:: 5 Resuscitation Status: Full Code Medical Power of Manager Quality Compliance: Daughter Events in the past 12 to 24 Hours:: 11.21.2019: The patient has remained in normal sinus rhythm at a controlled rate (less than 90). His blood pressure is better controlled as well. He is much more awake and responsive. His torticollis is both subjectively and clinically improved. Had no difficulty urinating after removal of his Amanda catheter. He was downgraded to medical floor telemetry status remains in the ICU secondary to inability to transfer secondary to bed capacity 11.20.2019: Patient has remained in a normal sinus rhythm since the adenosine was given yesterday. On rounds vasopressin has been discontinued and esmolol was discontinued. Patient had confusion and was agitated last evening but today is lucid and has no agitation or delirium. 11.19.2019: Patient's tachycardia has worsened today. He is asymptomatic. Also developed hypotension with beta-jennifer treatment. He was given a stat dose of low-dose vasopressin which improved his blood pressure. Of note, his torticol lis has improved. 11.18.2019: Patient's tachycardia has improved with beta-jennifer therapy and IV fluids. He discloses no pain no abdominal discomfort no headache. His neck spasm has improved slightly but not dramatically. Review of systems relevant to events:: 11.21.2019 11.20.2019: Carotid ultrasound was unremarkable. Torticollis is remarkably improved and patient has now good rotation of his head and neck. He has no pain. He is anorexic and not eating well. 11.19.2019: In concern for an atypical tachycardia syndrome a carotid ultrasound was done to assure that the torticollis was not causing carotid baroreceptor changes. This was essentially unremarkable. We also consulted cardiology who felt that this was an atypical atrial dysrhythmia and with the use of adenosine were able to convert him to a sinus rhythm at a rate of 70-80. We are grateful for cardiology's assistance. He is also been maintained on esmolol drip without any further hypotension. 11.18.2019: Patient had bedside echocardiogram which showed a minimal pleural effusion. Notably his IVC was definitively underfilled and had significant respirophasic changes when seen. - Medications: Vasopressors:: None Sedation:: None Physical Exam Vital Signs: Temp Pulse Resp BP Pulse Ox 97.6 F 63 18 146/85 H 98 11/21/19 12:00 11/21/19 12:00 11/21/19 12:00 11/21/19 12:00 11/21/19 12:00 Intake & Output 11/20/19 11/21/19 11/22/19 06:59 06:59 06:59 Intake Total 4560 2656 300 Output Total 300 1825 650 Balance 4260 831 -350 Weight 78.2 kg 76.1 kg Weight/Height Weight 76.1 kg Height 6 ft General appearance: PRESENT: no acute distress, cooperative, well-developed, well-nourished Head exam: PRESENT: other - Post craniotomy scar and mild deformity Eye exam: PRESENT: conjunctiva pink, EOMI, PERRLA. ABSENT: nystagmus, periorbital swelling, scleral icterus Mouth exam: PRESENT: moist Teeth exam: PRESENT: poor dentation Neck exam: PRESENT: other - Neck movement dramatically improved. He is able to perform rotation to left and right and flexion and extension. It is somewhat limited but significantly improved compared to yesterday.. ABSENT: carotid br uit, JVD, lymphadenopathy, thyromegaly Respiratory exam: PRESENT: clear to auscultation rebecca. ABSENT: accessory muscle use, rales, rhonchi, wheezes Cardiovascular exam: PRESENT: RRR, +S1, +S2. ABSENT: diastolic murmur, rubs, systolic murmur Pulses: PRESENT: +1 pedal pulses bilateral Vascular exam: PRESENT: normal capillary refill. ABSENT: pallor GI/Abdominal exam: PRESENT: normal bowel sounds, soft. ABSENT: ascites, distended, guarding, mass, organolmegaly, rebound, tenderness Rectal exam: PRESENT: deferred Gentrourinary exam: ABSENT: indwelling catheter Extremities exam: PRESENT: pedal edema. ABSENT: tenderness Musculoskeletal exam: ABSENT: deformity, dislocation Neurological exam: PRESENT: alert, awake, oriented to person, oriented to place, oriented to time, oriented to situation, CN II-XII grossly intact. ABSENT: motor sensory deficit Psychiatric exam: PRESENT: appropriate affect, normal mood. ABSENT: agitated, homicidal ideation, suicidal ideation Focused psych exam: ABSENT: pressured speech, psychomotor agitation, restlessness Skin exam: PRESENT: dry, intact, warm. ABSENT: cyanosis, rash Tubes/Lines: ABSENT: Endotracheal Tube, Chest Tube, Central Line, Arterial Catheter, Dialysis catheter, Peg Tube, Nasogastic Tube, Other Laboratory/Radiographs Laboratory Results: 11/21/19 03:58 11/21/19 03:58 11/21/19 11/21/19 11/21/19 03:58 03:58 03:58 WBC 12.1 H RBC 2.73 L Hgb 7.6 L Hct 23.0 L MCV 85 MCH 28.0 MCHC 33.2 RDW 21.6 H Plt Count 338 Seg Neutrophils % Not Reportable Sodium 142.3 Potassium 3.1 L Chloride 104 Carbon Dioxide 28 Anion Gap 10 BUN 27 H Creatinine 1.38 H Est GFR ( Amer) > 60 Glucose 131 H Calcium 4.5 L* Ionized Calcium Yola 0.63 L Phosphorus 2.9 Magnesium 1.6 11/17/19 11/17/19 11/17/19 13:25 13:25 13:25 Creatine Kinase 211 H CK-MB (CK-2) 0.43 Troponin I 0.051 NT-Pro-B Natriuret Pep 11/17/19 11/18/19 23:06 05:40 Creatine Kinase 182 H CK-MB (CK-2) Troponin I NT-Pro-B Natriuret Pep 317 H Impressions: Cervical Spine CT 11/17/19 00:00 IMPRESSION: MULTIPLE SCLEROTIC LESIONS IN THE VERTEBRAE CONSISTENT WITH BONY METASTASES. NO ACUTE FINDINGS IN THE CERVICAL SPINE. Head CT 11/17/19 00:00 IMPRESSION: SURGICAL CHANGES IN THE RIGHT FRONTAL LOBE WITH MILD ENCEPHALOMALACIA. MILD CHRONIC CHANGES OF ATROPHY AND MICROVASCULAR ISCHEMIA. NO ACUTE PROCESS. EVIDENCE OF ACUTE STROKE: NO. Chest/Abdomen CTA 11/17/19 14:00 IMPRESSION: 1. NORMAL CTA OF THE CHEST. NO PULMONARY EMBOLI. 2. CARDIOMEGALY WITH BILATERAL PLEURAL EFFUSIONS AND COMPRESSIVE ATELECTASIS IN THE LUNG BASES. HAZY GROUND-GLASS OPACITIES THROUGHOUT BOTH LUNGS LIKELY REPRESENTS EARLY PULMONARY EDEMA. 3. PERICARDIAL EFFUSION. 4. EXTENSIVE SCLEROTIC BONY METASTASES. Chest X-Ray 11/18/19 06:00 IMPRESSION: Unchanged left retrocardiac opacity associated with air broncho grams. Carotid Doppler Study 11/19/19 00:00 IMPRESSION: NO HEMODYNAMICALLY SIGNIFICANT STENOSIS. All labs, radiographs, diagnostic studies and EKGs were personally reviewed: Yes In addition, reports of radiographic and diagnostic studies were read: Yes Assessment and Plan - Diagnosis (1) Atrial dysrhythmia Is this a current diagnosis for this admission?: Yes Plan: Now resolved (2) Sinus tachycardia Is this a current diagnosis for this admission?: Yes Plan: Resolved. Continue oral beta-jennifer (3) Acute kidney injury Is this a current diagnosis for this admission?: Yes Plan: Resolved (4) Torticollis, acquired Is this a current diagnosis for this admission?: Yes Plan: Much Improved. Continue supportiv care (5) Metastasis to brain Is this a current diagnosis for this admission?: Yes (6) Pain due to malignant neoplasm metastatic to bone Is this a current diagnosis for this admission?: Yes (7) Anorexia Is this a current diagnosis for this admission?: Yes (8) Moderate protein-energy malnutrition Is this a current diagnosis for this admission?: Yes (9) Prostate cancer metastatic to bone Is this a current diagnosis for this admission?: Yes (10) Sepsis with acute organ dysfunction without septic shock Qualifiers: Sepsis type: sepsis due to unspecified organism Severe sepsis acute organ dysfunction type: acute renal failure Acute renal failure type: with other specified pathological lesion Qualified Code(s): A41.9 - Sepsis, unspecified organism; R65.20 - Severe sepsis without septic shock; N17.9 - Acute kidney failure, unspecified Is this a current diagnosis for this admission?: Yes Plan: 11.20.2019: Cultures are negative and no source for infection has been found. Antibiotics have been discontinued. At this point this appears to be dehydration with symptomatic tachycardia and no longer appears to be sepsis. Continue antibiotics for 24 more hours. No clear source is noted. He does have 8 white cells in his urine and will await culture. Chest x-ray and CAT scan were consistent with groundglass interstitial changes. We will continue antibiotics for another 24 hours and follow blood cultures. At this point I am less impressed that this is sepsis and more related to dehydration. (11) Sepsis Qualifiers: Sepsis type: sepsis due to unspecified organism Sepsis acute organ dysfunction status: without acute organ dysfunction Qualified Code(s): A41.9 - Sepsis, unspecified organism Is this a current diagnosis for this admission?: Yes Plan: Confirmed that this is not sepsis. Antibiotics discontinued (12) Hypocalcemia Is this a current diagnosis for this admission?: Yes Plan: Check Vit D and 1,25 levels. 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 He is no longer hypo- nor hypertensive. All antibiotics have been discontinued. He does have a slight increase in his white blood cell count but probably reflective of the need for high-dose steroids for his torticollis. He has persistent hypocalcemia that may be a component of steroid, nutritional deficiency and possible bisphosphonate therapy recently. Have started oral supplementation. Will await vitamin D levels as well. If this persists we would recommend urinary calcium determination over 24 hours to determine if this is a [id number]-[id number]-zjoyjnowygxapy syndrome. His torticollis has improved with treatment and we have discontinued the Decadron. We suspect he had some degree of renal failure at baseline however his acute renal failure has improved significantly. Will need to be vigilant to watch for post ATN diuresis. There is also a suspicion for relative adrenal insufficiency and has been started on mineralocorticoid/glucocorticoid therapy in the form of Solu-Cortef. Have begun the weaning process. Will have physical therapy and Occupational Therapy be involved and he is downgraded to floor status. He has been placed on telemetry Palliative care consult placed For all prognosis poor 11.20.2019: Patient's tachycardia has dramatically improved and he is now been weaned off esmolol after given oral beta-blockers. Hypotension has improved as well. Patient is anorexic and does not feel like eating. Has widely metastatic prostate cancer with metastatic disease to the bone. Will have dietary assist with nutritional supplementation. Been his advanced disease I placed a palliative care consult to both Dr. Patricia and the palliative care team. Have been attempting to educate the family about the extent of his disease and anorexia related to malignancy. We will attempt to downgrade the patient if he remained stable off medications. Antibiotics have been discontinued and this does not appear to be sepsis. We will start weaning steroids as well. Continue supportive care 11.19.2019: Patient's tachycardia is now resolved and we will wean the esmolol drip. And we are extremely grateful for cardiology's assistance in this atypical tachycardic case. Impressively, his torticollis has improved and there is no evidence for carotid anatomy dysfunction. Continue supportive care. Continue antibiotics for another 24 hours to assure that all cultures are negative. At this point his tachycardia appears to be unrelated to any sepsis crisis. No function has improved. His Amanda has been removed and will follow for any urinary retention. No respiratory dysfunction. Hypotension has resolved and was most likely related to medications. Will watch as the introduction of oral beta-blockers is instituted. 11.18.2019: Patient has had improvement with IV fluids. Given the findings on his official echocardiogram I am concerned that his dehydration is related to adrenal insufficiency. He has been on steroids. Because of the dramatic torticollis and possible pain related to bony metastatic disease I have given him a dose of Decadron and start him on Flexeril. Throughout the day multiple reexaminations were done which showed improvement he is able to rotate his head. Furthermore his tachycardia has improved with beta-jennifer and fluid therapy. We will continue. A lengthy discussion with the family and the patient about his metastatic disease. There appears to be some ambiguity about the extent of his disease. Further discussion with the family. Continue supportive care. Potential for transfer once his tachycardia has improved. Turn for heart failure is paramount given the high heart rate. This may have explained his groundglass appearance and he may have had a physiologic left ventricular outflow tract obstruction leading to the groundglass appearance. No diuresis and continue IV fluids is the treatment. Critical Time Critical Time (minutes): 0 - [id number] Level of Care: TELE Anticipated discharge: Home with Homehealth -: 1. The care of a critical patient is a dynamic process. This note is a represe ntative synopsis but static in nature. The timeframe for treatments given in order is not necessarily the actual time these treatments may have been done. 2. This patient requires critical care secondary to ongoing requirements for therapy not offered or safe outside the critical care environment. Transfer to a lower level of care will result in altered life or limb morbidity and mortality. 3. Multidisciplinary rounds completed. 4. ABCDE bundle addressed.
[2019-11-21] MEDS: CALCIUM CARBONATE 250 MG/VITAMIN D3 125 UNIT TABLET PO SCH ×2 (14:56→17:49)
[2019-11-21] MEDS: SITAGLIPTIN PHOSPHATE 50 MG TABLET PO SCH (16:00)
--- NOTE | 2019-11-21 17:42 | PDOC PROGRESS REPORT ---
Subjective Progress Note for:: 11/21/19 Subjective:: Patient feeling much better. Sitting up in bed, very talkative. ROS: No chest pain, no dyspnea, no diarrhea. Reason For Visit: SEPSIS,TACHYCARDIA,RENAL FAILURE Physical Exam Vital Signs: Temp Pulse Resp BP Pulse Ox 97.8 F 60 16 124/83 93 11/21/19 16:00 11/21/19 16:00 11/21/19 16:00 11/21/19 16:00 11/21/19 16:00 Intake & Output 11/20/19 11/21/19 11/22/19 06:59 06:59 06:59 Intake Total 4560 2656 300 Output Total 300 1825 650 Balance 4260 831 -350 Weight 78.2 kg 76.1 kg 76.1 kg General appearance: PRESENT: no acute distress, well-developed, well-nourished Head exam: PRESENT: normocephalic Respiratory exam: PRESENT: clear to auscultation rebecca, unlabored Cardiovascular exam: PRESENT: RRR Neurological exam: PRESENT: alert, awake Psychiatric exam: PRESENT: appropriate affect Skin exam: PRESENT: normal color Results Laboratory Results: 11/21/19 03:58 11/21/19 03:58 11/21/19 11/21/19 11/21/19 03:58 03:58 03:58 WBC 12.1 H RBC 2.73 L Hgb 7.6 L Hct 23.0 L MCV 85 MCH 28.0 MCHC 33.2 RDW 21.6 H Plt Count 338 Seg Neutrophils % Not Reportable Sodium 142.3 Potassium 3.1 L Chloride 104 Carbon Dioxide 28 Anion Gap 10 BUN 27 H Creatinine 1.38 H Est GFR ( Amer) > 60 Glucose 131 H Calcium 4.5 L* Ionized Calcium Yola 0.63 L Phosphorus 2.9 Magnesium 1.6 11/21/19 14:50 WBC RBC Hgb Hct MCV MCH MCHC RDW Plt Count Seg Neutrophils % Sodium Potassium Chloride Carbon Dioxide Anion Gap BUN Creatinine Est GFR ( Amer) Glucose Calcium Ionized Calcium Yola 0.73 L Phosphorus Magnesium 11/17/19 11/17/19 11/17/19 13:25 13:25 13:25 Creatine Kinase 211 H CK-MB (CK-2) 0.43 Troponin I 0.051 NT-Pro-B Natriuret Pep 11/17/19 11/18/19 23:06 05:40 Creatine Kinase 182 H CK-MB (CK-2) Troponin I NT-Pro-B Natriuret Pep 317 H Impressions: Cervical Spine CT 11/17/19 00:00 IMPRESSION: MULTIPLE SCLEROTIC LESIONS IN THE VERTEBRAE CONSISTENT WITH BONY METASTASES. NO ACUTE FINDINGS IN THE CERVICAL SPINE. Head CT 11/17/19 00:00 IMPRESSION: SURGICAL CHANGES IN THE RIGHT FRONTAL LOBE WITH MILD ENCEPHALOMALACIA. MILD CHRONIC CHANGES OF ATROPHY AND MICROVASCULAR ISCHEMIA. NO ACUTE PROCESS. EVIDENCE OF ACUTE STROKE: NO. Chest/Abdomen CTA 11/17/19 14:00 IMPRESSION: 1. NORMAL CTA OF THE CHEST. NO PULMONARY EMBOLI. 2. CARDIOMEGALY WITH BILATERAL PLEURAL EFFUSIONS AND COMPRESSIVE ATELECTASIS IN THE LUNG BASES. HAZY GROUND-GLASS OPACITIES THROUGHOUT BOTH LUNGS LIKELY REPRESENTS EARLY PULMONARY EDEMA. 3. PERICARDIAL EFFUSION. 4. EXTENSIVE SCLEROTIC BONY METASTASES. Chest X-Ray 11/18/19 06:00 IMPRESSION: Unchanged left retrocardiac opacity associated with air bronchograms. Carotid Doppler Study 11/19/19 00:00 IMPRESSION: NO HEMODYNAMICALLY SIGNIFICANT STENOSIS. Assessment & Plan - Diagnosis (1) Hypocalcemia Is this a current diagnosis for this admission?: Yes Plan: Still receiving PO and IV Ca supplements. (2) Prostate cancer metastatic to bone Is this a current diagnosis for this admission?: Yes Plan: All treatment on hold. Steroids being weaned. (3) Sepsis Qualifiers: Sepsis type: sepsis due to unspecified organism Sepsis acute organ dysfunction status: without acute organ dysfunction Qualified Code(s): A41.9 - Sepsis, unspecified organism Is this a current diagnosis for this admission?: Yes Plan: May consider blood transfusion for HGB <8. But, clinically, he is much improved. - Time Time Spent with patient: 15-24 minutes - Plan Summary Plan Summary: Will sign off. He should follow with primary oncologist as outpatient.
[2019-11-21] MEDS: TAMSULOSIN HCL 0.4 MG CAP.SR.24H PO SCH (17:49)
[2019-11-21] MEDS: RINGERS SOLUTION,LACTATED 1,000 ML IV PRN (17:52)
[2019-11-21] MEDS ORDERED: ADENOSINE INJ/PF 6 MG/2 ML SDV IV ONE ×5 (18:00→23:00)
[2019-11-21] MEDS ORDERED: METOPROLOL TARTRATE PF/INJ 5 MG/5 ML SDV IV ONE ×3 (18:23→19:30)
--- NOTE | 2019-11-21 18:40 | Progress Note ---
Provider Note Provider Note: Patient developed tachycardia this afternoon that was asymptomatic and not associated with hypotension. He denied dyspnea, chest pain, visual changes nor abdominal pain. No nausea or vomiting. EKG shows atrial dysrhythmia with SVT narrow complex no ST segment changes suggestive of ischemia. With continuous CESAR dynamic monitoring he was given 6 mg of adenosine rapidly through his Mediport and then flushed. Within 20 to 30 seconds he had normalization of his heart rate to 74 and sinus rhythm. Tolerated this well without hemodynamic instability. Mental status remained intact. No asystole or bradycardia. Followed by 2 9 mg of Lopressor to maintained stability. Contacted Dr. Mandel who suggested we transition the patient to verapamil. He will be started on this tonight at 10:00 to allow for the beta-jennifer effect to wear off. Maintain in the ICU until we can be assured of stability of the heart rate. Total critical care time including discussion with consultants and follow up: 30 Minutes
[2019-11-21] MEDS: ATORVASTATIN CALCIUM 10 MG TABLET PO SCH (21:23)
[2019-11-21] MEDS ORDERED: VERAPAMIL HCL 80 MG TABLET ONE (21:46)
[2019-11-21] MEDS ORDERED: VERAPAMIL HCL 80 MG TABLET PO ONE (22:00)
[2019-11-21] MEDS ORDERED: HYDROCORTISONE SOD SUCCINATE INJ/PF 100 MG/2 ML SDV IV SCH (22:00)
[2019-11-21] MEDS ORDERED: (PENDING PHARMACY ID) (Rosuvastatin Calcium [Crestor 20 Mg Tablet] 20 MG) PO SCH (22:00)
[2019-11-21] MEDS ORDERED: VERAPAMIL HCL 80 MG TABLET PO SCH (22:00)
--- NOTE | 2019-11-21 23:52 | Progress Note ---
Provider Note Provider Note: CARDIOLOGY PROGRESS NOTE by Dr. Mavis Mandel on 11/21/2019 SUBJECTIVE patient seen in the morning. There is no recurrence of his SVT. He is on metoprolol. He denies any chest pain or discomfort. His calcium is still low. There is no ventricular arrhythmia seen on the monitor. His potassium is also low and this is being treated. PHYSICAL EXAMINATION: The patient is appears to be chronically ill he is no acute distress . Selected Entries 11/21/19 07:58 Temperature 98.0 F Temperature Oral Source Pulse Rate 57 L Respiratory 10 L Rate Blood Pressure 158/86 H [Upper Arm] Blood Pressure 110 Mean [Upper Arm ] Blood Pressure Supine Position [Upper Arm] O2 Sat by Pulse 99 Oximetry Oxygen Delivery Room Air Method ( includes room air) HEAD: Scar of prior right craniotomy present. Normocephalic. EYES: Pupils are equal round regular reactive to light and accommodation. There is conjunctival pallor. There is no scleral icterus. EARS: Tympanic membranes are intact. External auditory canals are clear. NOSE nose: There is no deviated nasal septum. There is no inflammation nasal mucous membrane. MOUTH: Mucous membranes of mouth are slightly dry. There is no bleeding from the gums. THROAT: There is no redness of the oropharynx. There is no exudates. SKIN: There is no petechia or ecchymosis. There is no skin lesions or skin rashes. 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 Right side of neck is tender neck movements are limited due to pain and muscle spasm. There is no palpable lymphadenopathy. There is no goiter. There is no accessory muscle respiration use. TRACHEA is central. LUNGS: Clear to auscultation percussion. Heart: S1-S2 is heard. There is no S3 gallop. There is no S4 gallop. There is mild mitral regurgitation murmur present. There is no aortic stenosis or aortic regurgitation murmur. There is no S3 gallop. There is no S4 gallop. S1 is of normal intensity. There is no rub. ABDOMEN: Soft nontender. There is no hepatosplenomegaly bowel sounds are well heard. E XTREMITIES: Femorals are well felt. There is no femoral bruits. Leg pulses well felt. There is no pedal edema. There is no DVT or cellulitis. There is no cyanosis or clubbing. DOGGER: The patient is conscious awake alert oriented to place person and time. And also situation. He has weak upper extremity and lower extremity. No focal deficits though. PSYCHIATRIC: Patient is in spite of his low blood pressures judgment site seem to be intact. He does not appear to be anxious or agitated. Labs- Entire Visit 11/17/19 11/17/19 11/17/19 13:25 13:25 13:25 WBC 12.1 H RBC 3.22 L Hgb 9.1 L Hct 27.6 L MCV 86 MCH 28.2 MCHC 33.0 RDW 21.8 H Plt Count 396 Lymph % (Auto) Not Reportable [place] % (Auto) Not Reportable Eos % (Auto) Not Reportable Baso % (Auto) Not Reportable Absolute Neuts (auto) Not Reportable Absolute Lymphs (auto) Not Reportable Absolute Monos (auto) Not Reportable Absolute Eos (auto) Not Reportable Absolute Basos (auto) Not Reportable Total Counted 100 Seg Neutrophils % Not Reportable Seg Neuts % (Manual) 88 H Band Neutrophils % Lymphocytes % (Manual) 7 L Monocytes % (Manual) 5 Eosinophils % (Manual) 0 Basophils % (Manual) 0 Abs Neuts (Manual) 10.6 H Abs Lymphs (Manual) 0.8 Abs Monocytes (Manual) 0.6 Absolute Eos (Manual) 0.0 Abs Basophils (Manual) 0.0 Nucleated RBCs Toxic Granulation Clumped Platelets Platelet Comment ADEQUATE Polychromasia SLIGHT Poikilocytosis Basophilic Stippling Anisocytosis 3+ Tear Drop Cells SLIGHT Ovalocytes 1+ Schistocytes PT 16.8 H INR 1.35 APTT VBG pH VBG pCO2 VBG HCO3 VBG Base Excess Sodium 142.6 Potassium 3.8 Chloride 105 Carbon Dioxide 21 L Anion Gap 17 BUN 20 Creatinine 1.20 Est GFR ( Amer) > 60 Est GFR (MDRD) Non-Af > 60 Glucose 128 H POC Glucose Lactic Acid Calcium 4.8 L* Ionized Calcium [place] Phosphorus Magnesium Total Bilirubin 0.5 Direct Bilirubin 0.4 Neonat Total Bilirubin 0.1 Neonat Direct Bilirubin 0.0 Neonat Indirect Bili 0.1 AST 104 H ALT 24 Alkaline Phosphatase 1918 H Ammonia Creatine Kinase CK-MB (CK-2) Troponin I NT-Pro-B Natriuret Pep Total Protein 6.0 L Albumin 2.9 L Vitamin D 25-Hydroxy TSH Free T4 Free T3 pg/mL Urine Color Urine Appearance Urine pH Ur Specific [place] Urine Protein Urine Glucose (UA) Urine Ketones Urine Blood Urine Nitrite Urine Nitrite (Reflex) Urine Bilirubin Urine Urobilinogen Ur Leukocyte Esterase Leukocyte Esterase Rfl Urine WBC (Auto) Urine RBC (Auto) Urine WBC (Reflex) Squamous Epi Cells Auto Urine Mucus (Auto) Urine Ascorbic Acid Time Trough Drawn Vancomycin Trough Influenza A (Rapid) Influenza B (Rapid) 11/17/19 11/17/19 11/17/19 13:25 13:25 13:25 WBC RBC Hgb Hct MCV MCH MCHC RDW Plt Count Lymph % (Auto) [place] % (Auto) Eos % (Auto) Baso % (Auto) Absolute Neuts (auto) Absolute Lymphs (auto) Absolute Monos (auto) Absolute Eos (auto) Absolute Basos (auto) Total Counted Seg Neutrophils % Seg Neuts % (Manual) Band Neutrophils % Lymphocytes % (Manual) Monocytes % (Manual) Eosinophils % (Manual) Basophils % (Manual) Abs Neuts (Manual) Abs Lymphs (Manual) Abs Monocytes (Manual) Absolute Eos (Manual) Abs Basophils (Manual) Nucleated RBCs Toxic Granulation Clumped Platelets Platelet Comment Polychromasia Poikilocytosis Basophilic Stippling Anisocytosis Tear Drop Cells Ovalocytes Schistocytes PT INR APTT VBG pH 7.38 VBG pCO2 36.2 VBG HCO3 20.9 VBG Base Excess -3.4 Sodium Potassium Chloride Carbon Dioxide Anion Gap BUN Creatinine Est GFR ( Amer) Est GFR (MDRD) Non-Af Glucose POC Glucose Lactic Acid 1.1 Calcium Ionized Calcium [place] Phosphorus Magnesium Total Bilirubin Direct Bilirubin Neonat Total Bilirubin Neonat Direct Bilirubin Neonat Indirect Bili AST ALT Alkaline Phosphatase Ammonia Creatine Kinase CK-MB (CK-2) Troponin I 0.051 NT-Pro-B Natriuret Pep Total Protein Albumin Vitamin D 25-Hydroxy TSH Free T4 Free T3 pg/mL Urine Color Urine Appearance Urine pH Ur Specific [place] Urine Protein Urine Glucose (UA) Urine Ketones Urine Blood Urine Nitrite Urine Nitrite (Reflex) Urine Bilirubin Urine Urobilinogen Ur Leukocyte Esterase Leukocyte Esterase Rfl Urine WBC (Auto) Urine RBC (Auto) Urine WBC (Reflex) Squamous Epi Cells Auto Urine Mucus (Auto) Urine Ascorbic Acid Time Trough Drawn Vancomycin Trough Influenza A (Rapid) Influenza B (Rapid) 11/17/19 11/17/19 11/17/19 13:25 13:25 13:25 WBC RBC Hgb Hct MCV MCH MCHC RDW Plt Count Lymph % (Auto) [place] % (Auto) Eos % (Auto) Baso % (Auto) Absolute Neuts (auto) Absolute Lymphs (auto) Absolute Monos (auto) Absolute Eos (auto) Absolute Basos (auto) Total Counted Seg Neutrophils % Seg Neuts % (Manual) Band Neutrophils % Lymphocytes % (Manual) Monocytes % (Manual) Eosinophils % (Manual) Basophils % (Manual) Abs Neuts (Manual) Abs Lymphs (Manual) Abs Monocytes (Manual) Absolute Eos (Manual) Abs Basophils (Manual) Nucleated RBCs Toxic Granulation Clumped Platelets Platelet Comment Polychromasia Poikilocytosis Basophilic Stippling Anisocytosis Tear Drop Cells Ovalocytes Schistocytes PT INR APTT VBG pH VBG pCO2 VBG HCO3 VBG Base Excess Sodium Potassium Chloride Carbon Dioxide Anion Gap BUN Creatinine Est GFR ( Amer) Est GFR (MDRD) Non-Af Glucose POC Glucose Lactic Acid Calcium Ionized Calcium [place] Phosphorus 2.6 Magnesium 2.1 Total Bilirubin Direct Bilirubin Neonat Total Bilirubin Neonat Direct Bilirubin Neonat Indirect Bili AST ALT Alkaline Phosphatase Ammonia Creatine Kinase 211 H CK-MB (CK-2) 0.43 Troponin I NT-Pro-B Natriuret Pep Total Protein Albumin Vitamin D 25-Hydroxy TSH 2.26 Free T4 0.61 L Free T3 pg/mL 2.09 L Urine Color Urine Appearance Urine pH Ur Specific [place] Urine Protein Urine Glucose (UA) Urine Ketones Urine Blood Urine Nitrite Urine Nitrite (Reflex) Urine Bilirubin Urine Urobilinogen Ur Leukocyte Esterase Leukocyte Esterase Rfl Urine WBC (Auto) Urine RBC (Auto) Urine WBC (Reflex) Squamous Epi Cells Auto Urine Mucus (Auto) Urine Ascorbic Acid Time Trough Drawn Vancomycin Trough Influenza A (Rapid) Influenza B (Rapid) 11/17/19 11/17/19 11/17/19 16:22 17:35 18:30 WBC RBC Hgb Hct MCV MCH MCHC RDW Plt Count Lymph % (Auto) [place] % (Auto) Eos % (Auto) Baso % (Auto) Absolute Neuts (auto) Absolute Lymphs (auto) Absolute Monos (auto) Absolute Eos (auto) Absolute Basos (auto) Total Counted Seg Neutrophils % Seg Neuts % (Manual) Band Neutrophils % Lymphocytes % (Manual) Monocytes % (Manual) Eosinophils % (Manual) Basophils % (Manual) Abs Neuts (Manual) Abs Lymphs (Manual) Abs Monocytes (Manual) Absolute Eos (Manual) Abs Basophils (Manual) Nucleated RBCs Toxic Granulation Clumped Platelets Platelet Comment Polychromasia Poikilocytosis Basophilic Stippling Anisocytosis Tear Drop Cells Ovalocytes Schistocytes PT INR APTT VBG pH VBG pCO2 VBG HCO3 VBG Base Excess Sodium Potassium Chloride Carbon Dioxide Anion Gap BUN Creatinine Est GFR ( Amer) Est GFR (MDRD) Non-Af Glucose POC Glucose Lactic Acid 0.9 Calcium Ionized Calcium [place] Phosphorus Magnesium Total Bilirubin Direct Bilirubin Neonat Total Bilirubin Neonat Direct Bilirubin Neonat Indirect Bili AST ALT Alkaline Phosphatase Ammonia < 8.7 L Creatine Kinase CK-MB (CK-2) Troponin I NT-Pro-B Natriuret Pep Total Protein Albumin Vitamin D 25-Hydroxy TSH Free T4 Free T3 pg/mL Urine Color YELLOW Urine Appearance SLIGHTLY-CLOUDY Urine pH 5.0 Ur Specific [place] 1.026 Urine Protein 100 H Urine Glucose (UA) NEGATIVE Urine Ketones 20 H Urine Blood MODERATE H Urine Nitrite Urine Nitrite (Reflex) NEGATIVE Urine Bilirubin NEGATIVE Urine Urobilinogen NEGATIVE Ur Leukocyte Esterase Leukocyte Esterase Rfl NEGATIVE Urine WBC (Auto) Urine RBC (Auto) 8 Urine WBC (Reflex) 6 Squamous Epi Cells Auto 1 Urine Mucus (Auto) RARE Urine Ascorbic Acid NEGATIVE Time Trough Drawn Vancomycin Trough Influenza A (Rapid) Influenza B (Rapid) 11/17/19 11/17/19 11/17/19 21:27 23:06 23:06 WBC RBC Hgb Hct MCV MCH MCHC RDW Plt Count Lymph % (Auto) [place] % (Auto) Eos % (Auto) Baso % (Auto) Absolute Neuts (auto) Absolute Lymphs (auto) Absolute Monos (auto) Absolute Eos (auto) Absolute Basos (auto) Total Counted Seg Neutrophils % Seg Neuts % (Manual) Band Neutrophils % Lymphocytes % (Manual) Monocytes % (Manual) Eosinophils % (Manual) Basophils % (Manual) Abs Neuts (Manual) Abs Lymphs (Manual) Abs Monocytes (Manual) Absolute Eos (Manual) Abs Basophils (Manual) Nucleated RBCs Toxic Granulation Clumped Platelets Platelet Comment Polychromasia Poikilocytosis Basophilic Stippling Anisocytosis Tear Drop Cells Ovalocytes Schistocytes PT INR APTT VBG pH VBG pCO2 VBG HCO3 VBG Base Excess Sodium 140.1 Potassium 3.3 L Chloride 103 Carbon Dioxide 28 Anion Gap 9 BUN 17 Creatinine 1.02 Est GFR ( Amer) > 60 Est GFR (MDRD) Non-Af > 60 Glucose 132 H POC Glucose Lactic Acid 1.3 Calcium 4.8 L* Ionized Calcium [place] Phosphorus 2.4 L Magnesium Total Bilirubin Direct Bilirubin Neonat Total Bilirubin Neonat Direct Bilirubin Neonat Indirect Bili AST ALT Alkaline Phosphatase Ammonia Creatine Kinase CK-MB (CK-2) Troponin I NT-Pro-B Natriuret Pep Total Protein Albumin Vitamin D 25-Hydroxy TSH Free T4 Free T3 pg/mL Urine Color YELLOW Urine Appearance SLIGHTLY-CLOUDY Urine pH 6.0 Ur Specific [place] 1.024 Urine Protein 30 H Urine Glucose (UA) NEGATIVE Urine Ketones TRACE H Urine Blood MODERATE H Urine Nitrite NEGATIVE Urine Nitrite (Reflex) Urine Bilirubin NEGATIVE Urine Urobilinogen NEGATIVE Ur Leukocyte Esterase NEGATIVE Leukocyte Esterase Rfl Urine WBC (Auto) 8 Urine RBC (Auto) 8 Urine WBC (Reflex) Squamous Epi Cells Auto <1 Urine Mucus (Auto) RARE Urine Ascorbic Acid NEGATIVE Time Trough Drawn Vancomycin Trough Influenza A (Rapid) Influenza B (Rapid) 11/17/19 11/17/19 11/18/19 23:06 23:14 01:10 WBC RBC Hgb Hct MCV MCH MCHC RDW Plt Count Lymph % (Auto) [place] % (Auto) Eos % (Auto) Baso % (Auto) Absolute Neuts (auto) Absolute Lymphs (auto) Absolute Monos (auto) Absolute Eos (auto) Absolute Basos (auto) Total Counted Seg Neutrophils % Seg Neuts % (Manual) Band Neutrophils % Lymphocytes % (Manual) Monocytes % (Manual) Eosinophils % (Manual) Basophils % (Manual) Abs Neuts (Manual) Abs Lymphs (Manual) Abs Monocytes (Manual) Absolute Eos (Manual) Abs Basophils (Manual) Nucleated RBCs Toxic Granulation Clumped Platelets Platelet Comment Polychromasia Poikilocytosis Basophilic Stippling Anisocytosis Tear Drop Cells Ovalocytes Schistocytes PT INR APTT VBG pH VBG pCO2 VBG HCO3 VBG Base Excess Sodium Potassium Chloride Carbon Dioxide Anion Gap BUN Creatinine Est GFR ( Amer) Est GFR (MDRD) Non-Af Glucose POC Glucose Lactic Acid Calcium Ionized Calcium [place] 0.67 L Phosphorus Magnesium Total Bilirubin Direct Bilirubin Neonat Total Bilirubin Neonat Direct Bilirubin Neonat Indirect Bili AST ALT Alkaline Phosphatase Ammonia Creatine Kinase CK-MB (CK-2) Troponin I NT-Pro-B Natriuret Pep 317 H Total Protein Albumin Vitamin D 25-Hydroxy TSH Free T4 Free T3 pg/mL Urine Color Urine Appearance Urine pH Ur Specific [place] Urine Protein Urine Glucose (UA) Urine Ketones Urine Blood Urine Nitrite Urine Nitrite (Reflex) Urine Bilirubin Urine Urobilinogen Ur Leukocyte Esterase Leukocyte Esterase Rfl Urine WBC (Auto) Urine RBC (Auto) Urine WBC (Reflex) Squamous Epi Cells Auto Urine Mucus (Auto) Urine Ascorbic Acid Time Trough Drawn Vancomycin Trough Influenza A (Rapid) NEGATIVE Influenza B (Rapid) NEGATIVE 11/18/19 11/18/19 11/18/19 05:40 05:40 06:45 WBC 10.8 H RBC 2.91 L Hgb 8.1 L Hct 24.5 L MCV 84 MCH 27.9 MCHC 33.1 RDW 21.6 H Plt Count 343 Lymph % (Auto) Not Reportable [place] % (Auto) Not Reportable Eos % (Auto) Not Reportable Baso % (Auto) Not Reportable Absolute Neuts (auto) Not Reportable Absolute Lymphs (auto) Not Reportable Absolute Monos (auto) Not Reportable Absolute Eos (auto) Not Reportable Absolute Basos (auto) Not Reportable Total Counted 100 Seg Neutrophils % Not Reportable Seg Neuts % (Manual) 87 H Band Neutrophils % Lymphocytes % (Manual) 6 L Monocytes % (Manual) 4 Eosinophils % (Manual) 3 Basophils % (Manual) 0 Abs Neuts (Manual) 9.4 H Abs Lymphs (Manual) 0.6 Abs Monocytes (Manual) 0.4 Absolute Eos (Manual) 0.3 Abs Basophils (Manual) 0.0 Nucleated RBCs Toxic Granulation Clumped Platelets Platelet Comment ADEQUATE Polychromasia Poikilocytosis 1+ Basophilic Stippling Anisocytosis 3+ Tear Drop Cells SLIGHT Ovalocytes 1+ Schistocytes PT 17.3 H INR 1.40 APTT 43.2 H VBG pH VBG pCO2 VBG HCO3 VBG Base Excess Sodium 137.3 Potassium 3.8 Chloride 102 Carbon Dioxide 27 Anion Gap 8 BUN 14 Creatinine 0.89 Est GFR ( Amer) > 60 Est GFR (MDRD) Non-Af > 60 Glucose 168 H POC Glucose Lactic Acid Calcium 5.5 L* Ionized Calcium [place] Phosphorus 2.4 L Magnesium 1.8 Total Bilirubin 0.4 Direct Bilirubin 0.3 Neonat Total Bilirubin Not Reportable Neonat Direct Bilirubin Not Reportable Neonat Indirect Bili Not Reportable AST 76 H ALT 21 Alkaline Phosphatase 1483 H Ammonia Creatine Kinase 182 H CK-MB (CK-2) Troponin I NT-Pro-B Natriuret Pep Total Protein 5.6 L Albumin 2.9 L Vitamin D 25-Hydroxy TSH Free T4 Free T3 pg/mL Urine Color Urine Appearance Urine pH Ur Specific [place] Urine Protein Urine Glucose (UA) Urine Ketones Urine Blood Urine Nitrite Urine Nitrite (Reflex) Urine Bilirubin Urine Urobilinogen Ur Leukocyte Esterase Leukocyte Esterase Rfl Urine WBC (Auto) Urine RBC (Auto) Urine WBC (Reflex) Squamous Epi Cells Auto Urine Mucus (Auto) Urine Ascorbic Acid Time Trough Drawn Vancomycin Trough Influenza A (Rapid) Influenza B (Rapid) 11/18/19 11/18/19 11/18/19 08:00 11:05 16:11 WBC RBC Hgb Hct MCV MCH MCHC RDW Plt Count Lymph % (Auto) [place] % (Auto) Eos % (Auto) Baso % (Auto) Absolute Neuts (auto) Absolute Lymphs (auto) Absolute Monos (auto) Absolute Eos (auto) Absolute Basos (auto) Total Counted Seg Neutrophils % Seg Neuts % (Manual) Band Neutrophils % Lymphocytes % (Manual) Monocytes % (Manual) Eosinophils % (Manual) Basophils % (Manual) Abs Neuts (Manual) Abs Lymphs (Manual) Abs Monocytes (Manual) Absolute Eos (Manual) Abs Basophils (Manual) Nucleated RBCs Toxic Granulation Clumped Platelets Platelet Comment Polychromasia Poikilocytosis Basophilic Stippling Anisocytosis Tear Drop Cells Ovalocytes Schistocytes PT INR APTT VBG pH VBG pCO2 VBG HCO3 VBG Base Excess Sodium Potassium Chloride Carbon Dioxide Anion Gap BUN Creatinine Est GFR ( Amer) Est GFR (MDRD) Non-Af Glucose POC Glucose 126 H 132 H 196 H Lactic Acid Calcium Ionized Calcium [place] Phosphorus Magnesium Total Bilirubin Direct Bilirubin Neonat Total Bilirubin Neonat Direct Bilirubin Neonat Indirect Bili AST ALT Alkaline Phosphatase Ammonia Creatine Kinase CK-MB (CK-2) Troponin I NT-Pro-B Natriuret Pep Total Protein Albumin Vitamin D 25-Hydroxy TSH Free T4 Free T3 pg/mL Urine Color Urine Appearance Urine pH Ur Specific [place] Urine Protein Urine Glucose (UA) Urine Ketones Urine Blood Urine Nitrite Urine Nitrite (Reflex) Urine Bilirubin Urine Urobilinogen Ur Leukocyte Esterase Leukocyte Esterase Rfl Urine WBC (Auto) Urine RBC (Auto) Urine WBC (Reflex) Squamous Epi Cells Auto Urine Mucus (Auto) Urine Ascorbic Acid Time Trough Drawn Vancomycin Trough Influenza A (Rapid) Influenza B (Rapid) 11/18/19 11/19/19 11/19/19 21:03 03:14 03:14 WBC 9.5 RBC 2.72 L Hgb 7.7 L Hct 23.0 L MCV 85 MCH 28.4 MCHC 33.6 RDW 21.4 H Plt Count 309 Lymph % (Auto) Not Reportable [place] % (Auto) Not Reportable Eos % (Auto) Not Reportable Baso % (Auto) Not Reportable Absolute Neuts (auto) Not Reportable Absolute Lymphs (auto) Not Reportable Absolute Monos (auto) Not Reportable Absolute Eos (auto) Not Reportable Absolute Basos (auto) Not Reportable Total Counted 100 Seg Neutrophils % Not Reportable Seg Neuts % (Manual) 93 H Band Neutrophils % 3 Lymphocytes % (Manual) 3 L Monocytes % (Manual) 1 L Eosinophils % (Manual) 0 Basophils % (Manual) 0 Abs Neuts (Manual) 9.1 H Abs Lymphs (Manual) 0.3 L Abs Monocytes (Manual) 0.1 Absolute Eos (Manual) 0.0 Abs Basophils (Manual) 0.0 Nucleated RBCs Toxic Granulation SLIGHT Clumped Platelets Platelet Comment ADEQUATE Polychromasia Poikilocytosis Basophilic Stippling Anisocytosis 3+ Tear Drop Cells SLIGHT Ovalocytes 1+ Schistocytes PT INR APTT VBG pH VBG pCO2 VBG HCO3 VBG Base Excess Sodium 141.3 Potassium 3.5 L Chloride 102 Carbon Dioxide 31 H Anion Gap 8 BUN 13 Creatinine 0.72 Est GFR ( Amer) > 60 Est GFR (MDRD) Non-Af > 60 Glucose 151 H POC Glucose 188 H Lactic Acid Calcium 4.8 L* Ionized Calcium [place] Phosphorus 2.6 Magnesium 1.8 Total Bilirubin Direct Bilirubin Neonat Total Bilirubin Neonat Direct Bilirubin Neonat Indirect Bili AST ALT Alkaline Phosphatase Ammonia Creatine Kinase CK-MB (CK-2) Troponin I NT-Pro-B Natriuret Pep Total Protein Albumin Vitamin D 25-Hydroxy TSH Free T4 Free T3 pg/mL Urine Color Urine Appearance Urine pH Ur Specific [place] Urine Protein Urine Glucose (UA) Urine Ketones Urine Blood Urine Nitrite Urine Nitrite (Reflex) Urine Bilirubin Urine Urobilinogen Ur Leukocyte Esterase Leukocyte Esterase Rfl Urine WBC (Auto) Urine RBC (Auto) Urine WBC (Reflex) Squamous Epi Cells Auto Urine Mucus (Auto) Urine Ascorbic Acid Time Trough Drawn Vancomycin Trough Influenza A (Rapid) Influenza B (Rapid) 11/19/19 11/19/19 11/19/19 10:58 16:12 21:29 WBC RBC Hgb Hct MCV MCH MCHC RDW Plt Count Lymph % (Auto) [place] % (Auto) Eos % (Auto) Baso % (Auto) Absolute Neuts (auto) Absolute Lymphs (auto) Absolute Monos (auto) Absolute Eos (auto) Absolute Basos (auto) Total Counted Seg Neutrophils % Seg Neuts % (Manual) Band Neutrophils % Lymphocytes % (Manual) Monocytes % (Manual) Eosinophils % (Manual) Basophils % (Manual) Abs Neuts (Manual) Abs Lymphs (Manual) Abs Monocytes (Manual) Absolute Eos (Manual) Abs Basophils (Manual) Nucleated RBCs Toxic Granulation Clumped Platelets Platelet Comment Polychromasia Poikilocytosis Basophilic Stippling Anisocytosis Tear Drop Cells Ovalocytes Schistocytes PT INR APTT VBG pH VBG pCO2 VBG HCO3 VBG Base Excess Sodium Potassium Chloride Carbon Dioxide Anion Gap BUN Creatinine Est GFR ( Amer) Est GFR (MDRD) Non-Af Glucose POC Glucose 237 H 217 H 190 H Lactic Acid Calcium Ionized Calcium [place] Phosphorus Magnesium Total Bilirubin Direct Bilirubin Neonat Total Bilirubin Neonat Direct Bilirubin Neonat Indirect Bili AST ALT Alkaline Phosphatase Ammonia Creatine Kinase CK-MB (CK-2) Troponin I NT-Pro-B Natriuret Pep Total Protein Albumin Vitamin D 25-Hydroxy TSH Free T4 Free T3 pg/mL Urine Color Urine Appearance Urine pH Ur Specific [place] Urine Protein Urine Glucose (UA) Urine Ketones Urine Blood Urine Nitrite Urine Nitrite (Reflex) Urine Bilirubin Urine Urobilinogen Ur Leukocyte Esterase Leukocyte Esterase Rfl Urine WBC (Auto) Urine RBC (Auto) Urine WBC (Reflex) Squamous Epi Cells Auto Urine Mucus (Auto) Urine Ascorbic Acid Time Trough Drawn Vancomycin Trough Influenza A (Rapid) Influenza B (Rapid) 11/19/19 11/19/19 11/20/19 21:55 21:55 05:35 WBC 9.6 RBC 2.58 L Hgb 7.3 L Hct 22.0 L MCV 85 MCH 28.2 MCHC 33.2 RDW 21.4 H Plt Count 314 Lymph % (Auto) Not Reportable [place] % (Auto) Not Reportable Eos % (Auto) Not Reportable Baso % (Auto) Not Reportable Absolute Neuts (auto) Not Reportable Absolute Lymphs (auto) Not Reportable Absolute Monos (auto) Not Reportable Absolute Eos (auto) Not Reportable Absolute Basos (auto) Not Reportable Total Counted 100 Seg Neutrophils % Not Reportable Seg Neuts % (Manual) 91 H Band Neutrophils % Lymphocytes % (Manual) 5 L Monocytes % (Manual) 3 Eosinophils % (Manual) 1 Basophils % (Manual) 0 Abs Neuts (Manual) 8.7 H Abs Lymphs (Manual) 0.5 Abs Monocytes (Manual) 0.3 Absolute Eos (Manual) 0.1 Abs Basophils (Manual) 0.0 Nucleated RBCs 4 Toxic Granulation Clumped Platelets PRESENT Platelet Comment ADEQUATE Polychromasia SLIGHT Poikilocytosis SLIGHT Basophilic Stippling PRESENT Anisocytosis 3+ Tear Drop Cells Ovalocytes SLIGHT Schistocytes SLIGHT PT INR APTT VBG pH VBG pCO2 VBG HCO3 VBG Base Excess Sodium Potassium Chloride Carbon Dioxide Anion Gap BUN Creatinine 1.34 H Est GFR ( Amer) > 60 Est GFR (MDRD) Non-Af 53 L Glucose POC Glucose Lactic Acid Calcium Ionized Calcium [place] Phosphorus Magnesium Total Bilirubin Direct Bilirubin Neonat Total Bilirubin Neonat Direct Bilirubin Neonat Indirect Bili AST ALT Alkaline Phosphatase Ammonia Creatine Kinase CK-MB (CK-2) Troponin I NT-Pro-B Natriuret Pep Total Protein Albumin Vitamin D 25-Hydroxy TSH Free T4 Free T3 pg/mL Urine Color Urine Appearance Urine pH Ur Specific [place] Urine Protein Urine Glucose (UA) Urine Ketones Urine Blood Urine Nitrite Urine Nitrite (Reflex) Urine Bilirubin Urine Urobilinogen Ur Leukocyte Esterase Leukocyte Esterase Rfl Urine WBC (Auto) Urine RBC (Auto) Urine WBC (Reflex) Squamous Epi Cells Auto Urine Mucus (Auto) Urine Ascorbic Acid Time Trough Drawn 2155 Vancomycin Trough 21.8 H Influenza A (Rapid) Influenza B (Rapid) 11/20/19 11/20/19 11/20/19 05:35 07:51 11:30 WBC RBC Hgb Hct MCV MCH MCHC RDW Plt Count Lymph % (Auto) [place] % (Auto) Eos % (Auto) Baso % (Auto) Absolute Neuts (auto) Absolute Lymphs (auto) Absolute Monos (auto) Absolute Eos (auto) Absolute Basos (auto) Total Counted Seg Neutrophils % Seg Neuts % (Manual) Band Neutrophils % Lymphocytes % (Manual) Monocytes % (Manual) Eosinophils % (Manual) Basophils % (Manual) Abs Neuts (Manual) Abs Lymphs (Manual) Abs Monocytes (Manual) Absolute Eos (Manual) Abs Basophils (Manual) Nucleated RBCs Toxic Granulation Clumped Platelets Platelet Comment Polychromasia Poikilocytosis Basophilic Stippling Anisocytosis Tear Drop Cells Ovalocytes Schistocytes PT INR APTT VBG pH VBG pCO2 VBG HCO3 VBG Base Excess Sodium Potassium Chloride Carbon Dioxide Anion Gap BUN Creatinine Est GFR ( Amer) Est GFR (MDRD) Non-Af Glucose POC Glucose 186 H 166 H Lactic Acid Calcium Ionized Calcium [place] Phosphorus 3.2 Magnesium 1.6 Total Bilirubin Direct Bilirubin Neonat Total Bilirubin Neonat Direct Bilirubin Neonat Indirect Bili AST ALT Alkaline Phosphatase Ammonia Creatine Kinase CK-MB (CK-2) Troponin I NT-Pro-B Natriuret Pep Total Protein Albumin Vitamin D 25-Hydroxy TSH Free T4 Free T3 pg/mL Urine Color Urine Appearance Urine pH Ur Specific [place] Urine Protein Urine Glucose (UA) Urine Ketones Urine Blood Urine Nitrite Urine Nitrite (Reflex) Urine Bilirubin Urine Urobilinogen Ur Leukocyte Esterase Leukocyte Esterase Rfl Urine WBC (Auto) Urine RBC (Auto) Urine WBC (Reflex) Squamous Epi Cells Auto Urine Mucus (Auto) Urine Ascorbic Acid Time Trough Drawn Vancomycin Trough Influenza A (Rapid) Influenza B (Rapid) 11/20/19 11/20/19 11/21/19 16:09 22:03 03:58 WBC RBC Hgb Hct MCV MCH MCHC RDW Plt Count Lymph % (Auto) [place] % (Auto) Eos % (Auto) Baso % (Auto) Absolute Neuts (auto) Absolute Lymphs (auto) Absolute Monos (auto) Absolute Eos (auto) Absolute Basos (auto) Total Counted Seg Neutrophils % Seg Neuts % (Manual) Band Neutrophils % Lymphocytes % (Manual) Monocytes % (Manual) Eosinophils % (Manual) Basophils % (Manual) Abs Neuts (Manual) Abs Lymphs (Manual) Abs Monocytes (Manual) Absolute Eos (Manual) Abs Basophils (Manual) Nucleated RBCs Toxic Granulation Clumped Platelets Platelet Comment Polychromasia Poikilocytosis Basophilic Stippling Anisocytosis Tear Drop Cells Ovalocytes Schistocytes PT INR APTT VBG pH VBG pCO2 VBG HCO3 VBG Base Excess Sodium 142.3 Potassium 3.1 L Chloride 104 Carbon Dioxide 28 Anion Gap 10 BUN 27 H Creatinine 1.38 H Est GFR ( Amer) > 60 Est GFR (MDRD) Non-Af 51 L Glucose 131 H POC Glucose 167 H 159 H Lactic Acid Calcium 4.5 L* Ionized Calcium Yola Phosphorus 2.9 Magnesium 1.6 Total Bilirubin Direct Bilirubin Neonat Total Bilirubin Neonat Direct Bilirubin Neonat Indirect Bili AST ALT Alkaline Phosphatase Ammonia Creatine Kinase CK-MB (CK-2) Troponin I NT-Pro-B Natriuret Pep Total Protein Albumin Vitamin D 25-Hydroxy TSH Free T4 Free T3 pg/mL Urine Color Urine Appearance Urine pH Ur Specific [place] Urine Protein Urine Glucose (UA) Urine Ketones Urine Blood Urine Nitrite Urine Nitrite (Reflex) Urine Bilirubin Urine Urobilinogen Ur Leukocyte Esterase Leukocyte Esterase Rfl Urine WBC (Auto) Urine RBC (Auto) Urine WBC (Reflex) Squamous Epi Cells Auto Urine Mucus (Auto) Urine Ascorbic Acid Time Trough Drawn Vancomycin Trough Influenza A (Rapid) Influenza B (Rapid) 11/21/19 11/21/19 11/21/19 03:58 03:58 08:05 WBC 12.1 H RBC 2.73 L Hgb 7.6 L Hct 23.0 L MCV 85 MCH 28.0 MCHC 33.2 RDW 21.6 H Plt Count 338 Lymph % (Auto) Not Reportable [place] % (Auto) Not Reportable Eos % (Auto) Not Reportable Baso % (Auto) Not Reportable Absolute Neuts (auto) Not Reportable Absolute Lymphs (auto) Not Reportable Absolute Monos (auto) Not Reportable Absolute Eos (auto) Not Reportable Absolute Basos (auto) Not Reportable Total Counted 100 Seg Neutrophils % Not Reportable Seg Neuts % (Manual) 88 H Band Neutrophils % 3 Lymphocytes % (Manual) 2 L Monocytes % (Manual) 7 Eosinophils % (Manual) 0 Basophils % (Manual) 0 Abs Neuts (Manual) 11.0 H Abs Lymphs (Manual) 0.2 L Abs Monocytes (Manual) 0.8 Absolute Eos (Manual) 0.0 Abs Basophils (Manual) 0.0 Nucleated RBCs Toxic Granulation Clumped Platelets Platelet Comment ADEQUATE Polychromasia SLIGHT Poikilocytosis Basophilic Stippling Anisocytosis 3+ Tear Drop Cells Ovalocytes Schistocytes PT INR APTT VBG pH VBG pCO2 VBG HCO3 VBG Base Excess Sodium Potassium Chloride Carbon Dioxide Anion Gap BUN Creatinine Est GFR ( Amer) Est GFR (MDRD) Non-Af Glucose POC Glucose 154 H Lactic Acid Calcium Ionized Calcium Yola 0.63 L Phosphorus Magnesium Total Bilirubin Direct Bilirubin Neonat Total Bilirubin Neonat Direct Bilirubin Neonat Indirect Bili AST ALT Alkaline Phosphatase Ammonia Creatine Kinase CK-MB (CK-2) Troponin I NT-Pro-B Natriuret Pep Total Protein Albumin Vitamin D 25-Hydroxy TSH Free T4 Free T3 pg/mL Urine Color Urine Appearance Urine pH Ur Specific [place] Urine Protein Urine Glucose (UA) Urine Ketones Urine Blood Urine Nitrite Urine Nitrite (Reflex) Urine Bilirubin Urine Urobilinogen Ur Leukocyte Esterase Leukocyte Esterase Rfl Urine WBC (Auto) Urine RBC (Auto) Urine WBC (Reflex) Squamous Epi Cells Auto Urine Mucus (Auto) Urine Ascorbic Acid Time Trough Drawn Vancomycin Trough Influenza A (Rapid) Influenza B (Rapid) 11/21/19 10:53 WBC RBC Hgb Hct MCV MCH MCHC RDW Plt Count Lymph % (Auto) [place] % (Auto) Eos % (Auto) Baso % (Auto) Absolute Neuts (auto) Absolute Lymphs (auto) Absolute Monos (auto) Absolute Eos (auto) Absolute Basos (auto) Total Counted Seg Neutrophils % Seg Neuts % (Manual) Band Neutrophils % Lymphocytes % (Manual) Monocytes % (Manual) Eosinophils % (Manual) Basophils % (Manual) Abs Neuts (Manual) Abs Lymphs (Manual) Abs Monocytes (Manual) Absolute Eos (Manual) Abs Basophils (Manual) Nucleated RBCs Toxic Granulation Clumped Platelets Platelet Comment Polychromasia Poikilocytosis Basophilic Stippling Anisocytosis Tear Drop Cells Ovalocytes Schistocytes PT INR APTT VBG pH VBG pCO2 VBG HCO3 VBG Base Excess Sodium Potassium Chloride Carbon Dioxide Anion Gap BUN Creatinine Est GFR ( Amer) Est GFR (MDRD) Non-Af Glucose POC Glucose 163 H Lactic Acid Calcium Ionized Calcium Yola Phosphorus Magnesium Total Bilirubin Direct Bilirubin Neonat Total Bilirubin Neonat Direct Bilirubin Neonat Indirect Bili AST ALT Alkaline Phosphatase Ammonia Creatine Kinase CK-MB (CK-2) Troponin I NT-Pro-B Natriuret Pep Total Protein Albumin Vitamin D 25-Hydroxy TSH Free T4 Free T3 pg/mL Urine Color Urine Appearance Urine pH Ur Specific [place] Urine Protein Urine Glucose (UA) Urine Ketones Urine Blood Urine Nitrite Urine Nitrite (Reflex) Urine Bilirubin Urine Urobilinogen Ur Leukocyte Esterase Leukocyte Esterase Rfl Urine WBC (Auto) Urine RBC (Auto) Urine WBC (Reflex) Squamous Epi Cells Auto Urine Mucus (Auto) Urine Ascorbic Acid Time Trough Drawn Vancomycin Trough Influenza A (Rapid) Influenza B (Rapid) IMPRESSION/recommendation: 1. Paroxysmal supraventricular tachycardia:: Terminated with 1 dose of adenosine. The patient's vasopressin and esmolol drip has been discontinued yesterday. The patient is on oral metoprolol and tolerating it well. He remains in sinus rhythm. 2. Torticollis: Possibly secondary to underlying infection causing muscle spasm and pain versus secondary to metastatic cervical spine disease. This is resolved 3. Hypertension blood pressure came up once the SVT was terminated. The patient is on vasopressin for concerns of possible sepsis. We will continue that. At present blood pressures well controlled. 4. Possible sepsis: Continue antibiotics and vasopressin. 5. 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 6. Possible left lower lobe pneumonia: Continue antibiotics. Continue hydration. 7. Cardiomyopathy. Most likely rate related. The patient and the son-in-law's states there is no prior cardiac issues with the patient. There is no history of congestive heart failure or any atrial arrhythmia. Once the patient's heart rate is controlled we will repeat the echo to see if it is rate related cardiomyopathy. 8. Hypocalcemia and hypokalemia: Replenish calcium and potassium. 9. Anemia: Consider blood transfusion. 10. History of hypertension: Patient at present on oral metoprolol. Medications reviewed. Medical regimen and management plan discussed with hair blender Dr. Luke. Medical decision making is of moderate complexity. 40 minutes spent on this patient Will follow.
--- NOTE | 2019-11-22 01:23 | Progress Note ---
Provider Note Provider Note: Date/Time: 11/21/2019 22:30 pm Notified of patient being back in SVT HR 150s-160s for which patient denied chest pain/pressure, shortness of breath, and continued to be oriented x4 without anxiety. Performed a 12 lead EKG confirming SVT with no evidence of acute ischemia/infarction. This is a known arrhythmia for this patient during this hospitalization, as well as the past couple of months per family report. Adenosine 6 mg IVP administered while I was present at bedside without complication and pt immediately returned to NSR HR 70s without any significant pause or loss of carotid pulse. To note, patient has just received a new medication Verapimil within the past hour so hopefully this will assist with ning cavanaughg patient's periodic SVT episodes under control. Will continue to monitor. Critical care time spent: 20 minutes
[2019-11-22] MEDS: VERAPAMIL HCL 80 MG TABLET PO SCH ×4 (02:33→21:04)
[2019-11-22] MEDS: HEPARIN SOD (PORCINE) 5,000 UNIT/ML 1 ML VIAL SUBCUT SCH ×3 (02:34→17:04)
[2019-11-22 06:15] LABS: HEMATOCRIT 24.1 % (37.9-51.0); MEAN CORPUSCULAR HEMOGLOBIN 28.2 pg (27.0-33.4); MEAN CORPUSCULAR HGB CONC 33.3 g/dL (32.0-36.0); MEAN CORPUSCULAR VOLUME 85 fl (80-97); PLATELET COUNT 371 10^3/uL (150-450); RED BLOOD COUNT 2.85 10^6/uL (4.35-5.55); RED CELL DISTRIBUTION WIDTH 21.2 % (11.5-14.0); WHITE BLOOD COUNT 11.8 10^3/uL (4.0-10.5)
[2019-11-22 06:26] LABS: ANION GAP 11 (5-19); BLOOD UREA NITROGEN 25 mg/dL (7-20); CARBON DIOXIDE 30 mmol/L (22-30); CHLORIDE 102 mmol/L (98-107); GLUCOSE 107 mg/dL (75-110); PHOSPHORUS 2.9 mg/dL (2.5-4.5)
[2019-11-22 06:37] LABS: ABSOLUTE LYMPHOCYTES# (MANUAL) 0.8 10^3/uL (0.5-4.7); ABSOLUTE MONOCYTES # (MANUAL) 0.5 10^3/uL (0.1-1.4); BASOPHILS % (MANUAL) 0 % (0-2); EOSINOPHILS % (MANUAL) 0 % (0-6); LYMPHOCYTES % (MANUAL) 7 % (13-45); MONOCYTES % (MANUAL) 4 % (3-13); NUCLEATED RED BLOOD CELLS 1 /100 WBC (0); SEGMENTED NEUTROPHILS % (MAN) 89 % (42-78); TOTAL CELLS COUNTED 100
[2019-11-22 06:38] LABS: ANISOCYTOSIS 2+; PLATELET COMMENT ADEQUATE; POLYCHROMASIA 2+
[2019-11-22] MEDS ORDERED: CALCIUM GLUCONATE 1000 MG/10 ML INJ IV ONE (06:48)
[2019-11-22 06:49] LABS: CALCIUM 5.1 mg/dL (8.4-10.2); POTASSIUM 2.7 mmol/L (3.6-5.0)
[2019-11-22] MEDS: POTASSI CL 20 MEQ/50 ML RIDER 20 MEQ/50 ML RTUPB IV SCH ×2 (08:25→09:52)
[2019-11-22] MEDS: INSULIN REG, HUMAN 100 UNIT/ML 3 ML VIAL (PYX) SUBCUT SCH ×4 (09:14→21:01)
[2019-11-22] MEDS: LEVETIRACETAM 500 MG TABLET PO SCH ×2 (09:51→21:04)
[2019-11-22] MEDS: POTASSIUM CHLORIDE 10 MEQ TABLET.ER PO SCH ×4 (09:51→21:03)
[2019-11-22] MEDS: SITAGLIPTIN PHOSPHATE 50 MG TABLET PO SCH (09:51)
[2019-11-22] MEDS: CALCIUM CARBONATE 250 MG/VITAMIN D3 125 UNIT TABLET PO SCH ×3 (09:51→17:05)
[2019-11-22] MEDS: PREDNISONE 10 MG TABLET PO SCH (09:51)
--- NOTE | 2019-11-22 12:22 | PDOC CRITICAL CARE PROG REPORT ---
General Date:: 11/22/19 ICU Day:: 6 Hospital Day:: 6 Resuscitation Status: Full Code Medical Power of Personal Investment Adviser: Daughter Events in the past 12 to 24 Hours:: 11.22.2019: As noted in provider notes patient had recurrent episodes of SVT. This required adenosine for reversal. During these episodes he is neither hypotensive or symptomatic as far as chest pain or shortness of breath. He is unaware that these situations are occurring. No nausea vomiting or abdominal pain as well. 11.21.2019: The patient has remained in normal sinus rhythm at a controlled rate (less than 90). His blood pressure is better controlled as well. He is much more awake and responsive. His torticollis is both subjectively and clinically improved. Had no difficulty urinating after removal of his Amanda catheter. He was downgraded to medical floor telemetry status remains in the ICU secondary to inability to transfer secondary to bed capacity 11.20.2019: Patient has remained in a normal sinus rhythm since the adenosine was given yesterday. On rounds vasopressin has been discontinued and esmolol was discontinued. Patient had confusion and was agitated last evening but today is lucid and has no agitation or delirium. 11.19.2019: Patient's tachycardia has worsened today. He is asymptomatic. Also developed hypotension with beta-jennifer treatment. He was given a stat dose of low-dose vasopressin which improved his blood pressure. Of note, his torticollis has improved. 11.18.2019: Patient's tachycardia has improved with beta-jennifer therapy and IV fluids. He discloses no pain no abdominal discomfort no headache. His neck spasm has improved slightly but not dramatically. Review of systems relevant to events:: 11.22.2019: As noted above. Currently, no complaints. Tolerating diet. Electrolytes replaced. Steroids reduced. No fever, no hypotension 11.21.2019: Stable hemodynamics throughout the day. No pain, no dyspnea. Neck is much improved 11.20.2019: Carotid ultrasound was unremarkable. Torticollis is remarkably improved and patient has now good rotation of his head and neck. He has no pain . He is anorexic and not eating well. 11.19.2019: In concern for an atypical tachycardia syndrome a carotid ultrasound was done to assure that the torticollis was not causing carotid baroreceptor changes. This was essentially unremarkable. We also consulted cardiology who felt that this was an atypical atrial dysrhythmia and with the use of adenosine were able to convert him to a sinus rhythm at a rate of 70-80. We are grateful for cardiology's assistance. He is also been maintained on esmolol drip without any further hypotension. 11.18.2019: Patient had bedside echocardiogram which showed a minimal pleural effusion. Notably his IVC was definitively underfilled and had significant respirophasic changes when seen. - Medications: Medications reviewed and adjusted accordingly: Yes Vasopressors:: None Sedation:: None Physical Exam Vital Signs: Temp Pulse Resp BP Pulse Ox 98.1 F 73 12 131/89 H 98 11/22/19 10:00 11/22/19 10:00 11/22/19 10:00 11/22/19 10:00 11/22/19 10:00 Intake & Output 11/21/19 11/22/19 11/23/19 06:59 06:59 06:59 Intake Total 2656 1357 336 Output Total 1825 1750 300 Balance 831 -393 36 Weight 76.1 kg 74.1 kg Weight/Height Weight 74.1 kg Height 6 ft General appearance: PRESENT: no acute distress, cooperative, well-developed, well-nourished Exam: Pleasant, non-toxic, chronically ill, 69 yo black male with alopecia, NAD. AA&OX3 Head exam: ABSENT: normocephalic - Post craniotomy scar on right. Alopecic Eye exam: PRESENT: conjunctiva pink, EOMI, PERRLA. ABSENT: nystagmus, scleral icterus Teeth exam: PRESENT: poor dentation Neck exam: PRESENT: other - Neck rotation much improved. Able to flex and extend without difficulty. At baseline. ABSENT: carotid bruit, JVD, lymphadenopathy, tenderness, thyromegaly Respiratory exam: PRESENT: clear to auscultation rebecca, unlabored. ABSENT: accessory muscle use, rales, rhonchi, tachypnea, wheezes Cardiovascular exam: PRESENT: RRR. ABSENT: diastolic murmur, rubs, systolic murmur Pulses: PRESENT: +1 pedal pulses bilateral GI/Abdominal exam: PRESENT: normal bowel sounds, soft. ABSENT: ascites, distended, guarding, mass, organolmegaly, rebound, tenderness Rectal exam: PRESENT: deferred Gentrourinary exam: ABSENT: indwelling catheter Extremities exam: PRESENT: pedal edema. ABSENT: calf tenderness, tenderness Musculoskeletal exam: ABSENT: deformity, dislocation, tenderness Neurological exam: PRESENT: alert, awake, oriented to person, oriented to place, oriented to time, CN II-XII grossly intact. ABSENT: motor sensory deficit - Weak globally and symmetric today. No focal deficit Psychiatric exam: PRESENT: appropriate affect, normal mood. ABSENT: homicidal ideation, suicidal ideation Focused psych exam: ABSENT: pressured speech, psychomotor agitation, restless ness Skin exam: PRESENT: dry, intact, warm. ABSENT: cyanosis, rash Tubes/Lines: ABSENT: Endotracheal Tube, Chest Tube, Central Line, Arterial Catheter, Dialysis catheter, Peg Tube, Nasogastic Tube, Other Laboratory/Radiographs Laboratory Results: 11/22/19 05:45 11/22/19 05:45 11/21/19 11/22/19 11/22/19 14:50 05:45 05:45 WBC RBC Hgb Hct MCV MCH MCHC RDW Plt Count Seg Neutrophils % Sodium 143.2 Potassium 2.7 L* Chloride 102 Carbon Dioxide 30 Anion Gap 11 BUN 25 H Creatinine 1.05 Est GFR ( Amer) > 60 Glucose 107 Calcium 5.1 L* Ionized Calcium [place] 0.73 L 0.72 L Phosphorus 2.9 Magnesium 2.0 11/22/19 05:45 WBC 11.8 H RBC 2.85 L Hgb 8.0 L Hct 24.1 L MCV 85 MCH 28.2 MCHC 33.3 RDW 21.2 H Plt Count 371 Seg Neutrophils % Not Reportable Sodium Potassium Chloride Carbon Dioxide Anion Gap BUN Creatinine Est GFR ( Amer) Glucose Calcium Ionized Calcium [place] Phosphorus Magnesium 11/17/19 11/17/19 11/17/19 13:25 13:25 13:25 Creatine Kinase 211 H CK-MB (CK-2) 0.43 Troponin I 0.051 NT-Pro-B Natriuret Pep 11/17/19 11/18/19 23:06 05:40 Creatine Kinase 182 H CK-MB (CK-2) Troponin I NT-Pro-B Natriuret Pep 317 H Impressions: Cervical Spine CT 11/17/19 00:00 IMPRESSION: MULTIPLE SCLEROTIC LESIONS IN THE VERTEBRAE CONSISTENT WITH BONY METASTASES. NO ACUTE FINDINGS IN THE CERVICAL SPINE. Head CT 11/17/19 00:00 IMPRESSION: SURGICAL CHANGES IN THE RIGHT FRONTAL LOBE WITH MILD ENCEPHALOMALACIA. MILD CHRONIC CHANGES OF ATROPHY AND MICROVASCULAR ISCHEMIA. NO ACUTE PROCESS. EVIDENCE OF ACUTE STROKE: NO. Chest/Abdomen CTA 11/17/19 14:00 IMPRESSION: 1. NORMAL CTA OF THE CHEST. NO PULMONARY EMBOLI. 2. CARDIOMEGALY WITH BILATERAL PLEURAL EFFUSIONS AND COMPRESSIVE ATELECTASIS IN THE LUNG BASES. HAZY GROUND-GLASS OPACITIES THROUGHOUT BOTH LUNGS LIKELY REPRESENTS EARLY PULMONARY EDEMA. 3. PERICARDIAL EFFUSION. 4. EXTENSIVE SCLEROTIC BONY METASTASES. Chest X-Ray 11/18/19 06:00 IMPRESSION: Unchanged left retrocardiac opacity associated with air bronchograms. Carotid Doppler Study 11/19/19 00:00 IMPRESSION: NO HEMODYNAMICALLY SIGNIFICANT STENOSIS. All labs, radiographs, diagnostic studies and EKGs were personally reviewed: Yes In addition, reports of radiographic and diagnostic studies were read: Yes Assessment and Plan - Diagnosis (1) Atrial dysrhythmia Is this a current diagnosis for this admission?: Yes Plan: Recurrent and paroxsysmal. Will speak with cardiology. Started on Verapamil (2) Acute kidney injury Is this a current diagnosis for this admission?: Yes Plan: Resolved. Much improved (3) Torticollis, acquired Is this a current diagnosis for this admission?: Yes Plan: Much Improved. Continue supportive care (4) Metastasis to brain Is this a current diagnosis for this admission?: Yes (5) Pain due to malignant neoplasm metastatic to bone Is this a current diagnosis for this admission?: Yes (6) Anorexia Is this a current diagnosis for this admission?: Yes (7) Moderate protein-energy malnutrition Is this a current diagnosis for this admission?: Yes (8) Prostate cancer metastatic to bone Is this a current diagnosis for this admission?: Yes (9) Hypocalcemia Is this a current diagnosis for this admission?: Yes Plan: Oral and IV supplementation. Vit D levels low normal. 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 Antibiotics discontinued (13) Sepsis with acute organ dysfunction without septic shock Qualifiers: Sepsis type: sepsis due to unspecified organism Severe sepsis acute organ dysfunction type: acute renal failure Acute renal failure type: with other specified pathological lesion Qualified Code(s): A41.9 - Sepsis, unspecified organism; R65.20 - Severe sepsis without septic shock; N17.9 - Acute kidney failure, unspecified Is this a current diagnosis for this admission?: Yes Plan: 11.20.2019: Cultures are negative and no source for infection has been found. Antibiotics have been discontinued. At this point this appears to be dehydration with symptomatic tachycardia and no longer appears to be sepsis. Continue antibiotics for 24 more hours. No clear source is noted. He does have 8 white cells in his urine and will await culture. Chest x-ray and CAT scan were consistent with groundglass interstitial changes. We will continue antibiotics for another 24 hours and follow blood cultures. At this point I am less impressed that this is sepsis and more related to dehydration. Plan Summary: 11.22.2019: Patient has been asymptomatic and has had no atrial tachycardia since last evening. He does have persistent hypocalcemia but there is been some improvement with supplementation. I have ordered 24-hour urine calcium to see if the problem is urinary loss. One other explanation could be steroids and we have reduced the amount that he has been given. Need to continue to evaluate this. Does have a mild leukocytosis which is most likely related to steroids. We should expect to see a decrement in the next 2 days. We will continue supportive care. Appreciate the help of oncology and palliative care. Impressively, his torticollis has improved and will provide as needed support. We will add vitamin D today. Continue verapamil. Follow-up with cardiology. PT and OT have been ordered Continue supportive care. 11.21.2019: Continued normal sinus rhythm has persisted. He is no longer hypo- nor hypertensive. All antibiotics have been discontinued. He does have a slight increase in his white blood cell count but probably reflective of the need for high-dose steroids for his torticollis. He has persistent hypocalcemia that may be a component of steroid, nutritional deficiency and possible bisphosphonate therapy recently. Have started oral supplementation. Will await vitamin D levels as well. If this persists we would recommend urinary calcium determination over 24 hours to determine if this is a esge-Dfw-kfunowrtkobcuu syndrome. His torticollis has improved with treatment and we have discontinued the Decadron. We suspect he had some degree of renal failure at baseline however his acute renal failure has improved significantly. Will need to be vigilant to watch for post ATN diuresis. There is also a suspicion for relative adrenal insufficiency and has been started on mineralocorticoid/glucocorticoid therapy in the form of Solu-Cortef. Have begun the weaning process. Will have physical therapy and Occupational Therapy be involved and he is downgraded to floor status. He has been placed on telemetry Palliative care consult placed For all prognosis poor 11.20.2019: Patient's tachycardia has dramatically improved and he is now been weaned off esmolol after given oral beta-blockers. Hypotension has improved as well. Patient is anorexic and does not feel like eating. Has widely metastatic prostate cancer with metastatic disease to the bone. Will have dietary assist with nutritional supplementation. Been his advanced disease I placed a palliative care consult to both Dr. Patricia and the palliative care team. Have been attempting to educate the family about the extent of his disease and anorexia related to malignancy. We will attempt to downgrade the patient if he remained stable off medications. Antibiotics have been discontinued and this does not appear to be sepsis. We will start weaning steroids as well. Continue supportive care 11.19.2019: Patient's tachycardia is now resolved and we will wean the esmolol drip. And we are extremely grateful for cardiology's assistance in this atypical tachycardic case. Impressively, his torticollis has improved and there is no evidence for carotid anatomy dysfunction. Continue supportive care. Continue antibiotics for another 24 hours to assure that all cultures are negative. At this point his tachycardia appears to be unrelated to any sepsis crisis. No function has improved. His Amanda has been removed and will follow for any urinary retention. No respiratory dysfunction. Hypotension has resolved and was most likely related to medications. Will watch as the introduction of oral beta-blockers is instituted. 11.18.2019: Patient has had improvement with IV fluids. Given the findings on his official echocardiogram I am concerned that his dehydration is related to adrenal insufficiency. He has been on steroids. Because of the dramatic torticollis and possible pain related to bony metastatic disease I have given him a dose of Decadron and start him on Flexeril. Throughout the day multiple reexaminations were done which showed improvement he is able to rotate his head. Furthermore his tachycardia has improved with beta-jennifer and fluid therapy. We will continue. A lengthy discussion with the family and the patient about his metastatic disease. There appears to be some ambiguity about the extent of his disease. Further discussion with the family. Continue supportive care. Potential for transfer once his tachycardia has improved. Turn for heart failure is paramount given the high heart rate. This may have explained his groundglass appearance and he may have had a physiologic left ventricular outflow tract obstruction leading to the groundglass appearance. No diuresis and continue IV fluids is the treatment. Critical Time Critical Time (minutes): 0 - [id number] Level of Care: IMCU Anticipated discharge: Home with Homehealth Within: within 48 hours -: 1. The care of a critical patient is a dynamic process. This note is a branch sales and service representative synopsis but static in nature. The timeframe for treatments given in order is not necessarily the actual time these treatments may have been done. 2. This patient requires critical care secondary to ongoing requirements for therapy not offered or safe outside the critical care environment. Transfer to a lower level of care will result in altered life or limb morbidity and mortality. 3. Multidisciplinary rounds completed. 4. ABCDE bundle addressed.
[2019-11-22] MEDS: TAMSULOSIN HCL 0.4 MG CAP.SR.24H PO SCH (17:05)
--- NOTE | 2019-11-22 17:17 | Progress Note ---
Provider Note Provider Note: Cardiology progress note by Dr. Mavis Mandel on 11/22/2019. OBJECTIVE: The patient last night went back into SVT which resolved/terminated with another dose of IV adenosine. The patient's Lopressor was discontinued and the patient was placed on verapamil. Since then there is been no recurrence of SVT. The patient's potassium still low is also the patient's calcium. This is slightly improved compared to yesterday. The patient is receiving replacements of both. The patient denies any chest pain or discomfort. There is no shortness of breath there is no PND orthopnea. There is no TIA CVA symptoms. The patient's torticollis is resolved. PHYSICAL EXAMINATION: The patient appears to be chronically ill, and in no acute distress Selected Entries 11/21/19 14:00 Temperature 97.9 F Temperature Oral Source Pulse Rate 61 Respiratory 22 H Rate Blood Pressure 131/79 H [Upper Arm] Blood Pressure 96 Mean [Upper Arm ] Blood Pressure Supine Position [Upper Arm] Blood Pressure 131 Systolic [Upper Arm] O2 Sat by Pulse 95 Oximetry Oxygen Delivery Room Air Method ( includes room air) HEAD: Scar of prior right craniotomy present. Normocephalic. EYES: Pupils are equal round regular reactive to light and accommodation. There is conjunctival pallor. There is no scleral icterus. EARS: Tympanic membranes are intact. External auditory canals are clear. NOSE nose: There is no deviated nasal septum. There is no inflammation nasal mucous membrane. MOUTH: Mucous membranes of mouth are slightly dry. There is no bleeding from the gums. THROAT: There is no redness of the oropharynx. There is no exudates. SKIN: There is no petechia or ecchymosis. There is no skin lesions or skin rashes. 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 Right side of neck is tender neck movements are limited due to pain and muscle spasm. There is no palpable lymphadenopathy. There is no goiter. There is no accessory muscle respiration use. TRACHEA is central. LUNGS: Clear to auscultation percussion. Heart: S1-S2 is heard. There is no S3 gallop. There is no S4 gallop. There is mild mitral regurgitation murmur present. There is no aortic stenosis or aortic regurgitation murmur. There is no S3 gallop. The re is no S4 gallop. S1 is of normal intensity. There is no rub. ABDOMEN: Soft nontender. There is no hepatosplenomegaly bowel sounds are well heard. EXTREMITIES: Femorals are well felt. There is no femoral bruits. Leg pulses well felt. There is no pedal edema. There is no DVT or cellulitis. There is no cyanosis or clubbing. TRANSPORTATION ESCORT: The patient is conscious awake alert oriented to place person and time. And also situation. He has weak upper extremity and lower extremity. No focal deficits though. PSYCHIATRIC: Patient is in spite of his low blood pressures judgment site seem to be intact. He does not appear to be anxious or agitated. I searched for articles of hypocalcemia and SVT and finally there was one reference where it mentions that hypocalcemia causes cardiomyopathy with SVT which terminated with adenosine. This is on a 4-month baby. But the picture does fit with it. This has been discussed with the partner. Labs- All tests 24 hr 11/21/19 11/22/19 11/22/19 21:08 05:45 05:45 WBC RBC Hgb Hct MCV MCH MCHC RDW Plt Count Lymph % (Auto) [place] % (Auto) Eos % (Auto) Baso % (Auto) Absolute Neuts (auto) Absolute Lymphs (auto) Absolute Monos (auto) Absolute Eos (auto) Absolute Basos (auto) Total Counted Seg Neutrophils % Seg Neuts % (Manual) Lymphocytes % (Manual) Monocytes % (Manual) Eosinophils % (Manual) Basophils % (Manual) Abs Neuts (Manual) Abs Lymphs (Manual) Abs Monocytes (Manual) Absolute Eos (Manual) Abs Basophils (Manual) Nucleated RBCs Platelet Comment Polychromasia Anisocytosis Sodium 143.2 Potassium 2.7 L* Chloride 102 Carbon Dioxide 30 Anion Gap 11 BUN 25 H Creatinine 1.05 Est GFR ( Amer) > 60 Est GFR (MDRD) Non-Af > 60 Glucose 107 POC Glucose 151 H Calcium 5.1 L* Ionized Calcium Yola 0.72 L Phosphorus 2.9 Magnesium 2.0 Vitamin D 25-Hydroxy 11/22/19 11/22/19 11/22/19 05:45 05:45 08:13 WBC 11.8 H RBC 2.85 L Hgb 8.0 L Hct 24.1 L MCV 85 MCH 28.2 MCHC 33.3 RDW 21.2 H Plt Count 371 Lymph % (Auto) Not Reportable [place] % (Auto) Not Reportable Eos % (Auto) Not Reportable Baso % (Auto) Not Reportable Absolute Neuts (auto) Not Reportable Absolute Lymphs (auto) Not Reportable Absolute Monos (auto) Not Reportable Absolute Eos (auto) Not Reportable Absolute Basos (auto) Not Reportable Total Counted 100 Seg Neutrophils % Not Reportable Seg Neuts % (Manual) 89 H Lymphocytes % (Manual) 7 L Monocytes % (Manual) 4 Eosinophils % (Manual) 0 Basophils % (Manual) 0 Abs Neuts (Manual) 10.5 H Abs Lymphs (Manual) 0.8 Abs Monocytes (Manual) 0.5 Absolute Eos (Manual) 0.0 Abs Basophils (Manual) 0.0 Nucleated RBCs 1 Platelet Comment ADEQUATE Polychromasia 2+ Anisocytosis 2+ Sodium Potassium Chloride Carbon Dioxide Anion Gap BUN Creatinine Est GFR ( Amer) Est GFR (MDRD) Non-Af Glucose POC Glucose 106 Calcium Ionized Calcium Yola Phosphorus Magnesium Vitamin D 25-Hydroxy 16.9 11/22/19 11/22/19 11/22/19 11:35 12:35 16:01 WBC RBC Hgb Hct MCV MCH MCHC RDW Plt Count Lymph % (Auto) [place] % (Auto) Eos % (Auto) Baso % (Auto) Absolute Neuts (auto) Absolute Lymphs (auto) Absolute Monos (auto) Absolute Eos (auto) Absolute Basos (auto) Total Counted Seg Neutrophils % Seg Neuts % (Manual) Lymphocytes % (Manual) Monocytes % (Manual) Eosinophils % (Manual) Basophils % (Manual) Abs Neuts (Manual) Abs Lymphs (Manual) Abs Monocytes (Manual) Absolute Eos (Manual) Abs Basophils (Manual) Nucleated RBCs Platelet Comment Polychromasia Anisocytosis Sodium Potassium Chloride Carbon Dioxide Anion Gap BUN Creatinine Est GFR ( Amer) Est GFR (MDRD) Non-Af Glucose POC Glucose 93 167 H Calcium Ionized Calcium Yola 0.89 L Phosphorus Magnesium Vitamin D 25-Hydroxy Cervical Spine CT 11/17/19 00:00 IMPRESSION: MULTIPLE SCLEROTIC LESIONS IN THE VERTEBRAE CONSISTENT WITH BONY METASTASES. NO ACUTE FINDINGS IN THE CERVICAL SPINE. Head CT 11/17/19 00:00 IMPRESSION: SURGICAL CHANGES IN THE RIGHT FRONTAL LOBE WITH MILD ENCEPHALOMALACIA. MILD CHRONIC CHANGES OF ATROPHY AND MICROVASCULAR ISCHEMIA. NO ACUTE PROCESS. EVIDENCE OF ACUTE STROKE: NO. Chest X-Ray 11/17/19 12:54 IMPRESSION: LEFT LOWER LOBE INFILTRATE SUSPICIOUS FOR PNEUMONIA. Chest/Abdomen CTA 11/17/19 14:00 IMPRESSION: 1. NORMAL CTA OF THE CHEST. NO PULMONARY EMBOLI. 2. CARDIOMEGALY WITH BILATERAL PLEURAL EFFUSIONS AND COMPRESSIVE ATELECTASIS IN THE LUNG BASES. HAZY GROUND-GLASS OPACITIES THROUGHOUT BOTH LUNGS LIKELY REPRESENTS EARLY PULMONARY EDEMA. 3. PERICARDIAL EFFUSION. 4. EXTENSIVE SCLEROTIC BONY METASTASES. Chest X-Ray 11/18/19 06:00 IMPRESSION: Unchanged left retrocardiac opacity associated with air bronchograms. Carotid Doppler Study 11/19/19 00:00 IMPRESSION: NO HEMODYNAMICALLY SIGNIFICANT STENOSIS. IMPRESSION/recommendation: 1. Paroxysmal supraventricular tachycardia:: Terminated with 1 dose of adenosine. The patient's vasopressin and esmolol drip has been discontinued yesterday. The patient is now on oral calcium channel jennifer and tolerating it well. He remains in sinus rhythm. 2. Torticollis: Possibly secondary to underlying infection causing muscle spasm and pain versus secondary to metastatic cervical spine disease. This is resolved 3. Hypertension blood pressure came up once the SVT was terminated. The patient is on vasopressin for concerns of possible sepsis. We will continue that. At present blood pressures well controlled. 4. Possible sepsis: Continue antibiotics and vasopressin. 5. 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 6. Possible left lower lobe pneumonia: Continue antibiotics. Continue hydration. 7. Cardiomyopathy. Most likely rate related. The patient and the son-in-law's states there is no prior cardiac issues with the patient. There is no history of congestive heart failure or any atrial arrhythmia. Once the patient's heart rate is controlled we will repeat the echo to see if it is rate related cardiomyopathy. 8. Hypokalemia and hypocalcemia: Replenish potassium and calcium. This is being done. 9. Anemia: Consider blood transfusion. 10.. History of hypertension: Is well controlled. Medications reviewed. Medical regimen and management plan discussed with partner Dr. Luke. Medical decision making is of moderate complexity. 40 minutes spent on this patient Will follow.
--- NOTE | 2019-11-22 20:47 | EKG REPORT ---
SEVERITY:- ABNORMAL ECG - SUPRAVENTRICULAR TACHYCARDIA LOW VOLTAGE IN FRONTAL LEADS BORDERLINE T ABNORMALITIES, INFERIOR LEADS : Confirmed by: Massiel Marcum 22-Nov-2019 20:45:56
--- NOTE | 2019-11-22 20:47 | EKG REPORT ---
SEVERITY:- ABNORMAL ECG - SUPRAVENTRICULAR TACHYCARDIA LOW VOLTAGE IN FRONTAL LEADS BORDERLINE T ABNORMALITIES, INFERIOR LEADS : Confirmed by: Massiel Marcum 22-Nov-2019 20:46:14
[2019-11-22] MEDS ORDERED: POTASSIUM CHLORIDE 10 MEQ TABLET.ER PO ONE ×3 (21:03→21:52)
[2019-11-22] MEDS: ATORVASTATIN CALCIUM 10 MG TABLET PO SCH (21:04)
[2019-11-23] MEDS: POTASSIUM CHLORIDE 10 MEQ TABLET.ER PO SCH ×6 (01:26→21:54)
[2019-11-23] MEDS: HEPARIN SOD (PORCINE) 5,000 UNIT/ML 1 ML VIAL SUBCUT SCH ×3 (01:26→17:54)
[2019-11-23] MEDS: VERAPAMIL HCL 80 MG TABLET PO SCH ×4 (03:43→21:54)
[2019-11-23 06:41] LABS: HEMATOCRIT 24.3 % (37.9-51.0); MEAN CORPUSCULAR HEMOGLOBIN 27.9 pg (27.0-33.4); MEAN CORPUSCULAR HGB CONC 32.9 g/dL (32.0-36.0); MEAN CORPUSCULAR VOLUME 85 fl (80-97); PLATELET COUNT 348 10^3/uL (150-450); RED BLOOD COUNT 2.86 10^6/uL (4.35-5.55); RED CELL DISTRIBUTION WIDTH 21.6 % (11.5-14.0); WHITE BLOOD COUNT 11.8 10^3/uL (4.0-10.5)
[2019-11-23 06:45] LABS: ALBUMIN 2.9 g/dL (3.5-5.0); ANION GAP 7 (5-19); ASPARTATE AMINO TRANSFERASE 132 U/L (17-59); BILIRUBIN,DIRECT 0.2 mg/dL (0.0-0.4); BILIRUBIN,TOTAL 0.5 mg/dL (0.2-1.3); BLOOD UREA NITROGEN 19 mg/dL (7-20); CARBON DIOXIDE 31 mmol/L (22-30); CHLORIDE 107 mmol/L (98-107); GLUCOSE 79 mg/dL (75-110); NEONATAL BILIRUBIN RESULT 0.3 mg/dL (0.1-1.1); PHOSPHORUS 2.4 mg/dL (2.5-4.5); POTASSIUM 4.1 mmol/L (3.6-5.0); TOTAL PROTEIN 5.7 g/dL (6.3-8.2)
[2019-11-23 07:05] LABS: ABSOLUTE LYMPHOCYTES# (MANUAL) 1.3 10^3/uL (0.5-4.7); ABSOLUTE MONOCYTES # (MANUAL) 0.6 10^3/uL (0.1-1.4); BASOPHILS % (MANUAL) 0 % (0-2); EOSINOPHILS % (MANUAL) 0 % (0-6); LYMPHOCYTES % (MANUAL) 11 % (13-45); MONOCYTES % (MANUAL) 5 % (3-13); SEGMENTED NEUTROPHILS % (MAN) 84 % (42-78); TOTAL CELLS COUNTED 100
[2019-11-23 07:07] LABS: TOXIC GRANULATION SLIGHT
[2019-11-23 07:08] LABS: ANISOCYTOSIS 3+; OVALOCYTES SLIGHT; PLATELET COMMENT ADEQUATE; POLYCHROMASIA SLIGHT; TEAR DROP CELLS SLIGHT; TOXIC VACUOLATION PRESENT
[2019-11-23 07:09] LABS: ALKALINE PHOSPHATASE 2165 U/L (38-126)
[2019-11-23 07:12] LABS: CALCIUM 6.3 mg/dL (8.4-10.2)
--- NOTE | 2019-11-23 07:41 | PDOC PROGRESS REPORT ---
Subjective Progress Note for:: 11/23/19 Subjective:: No acute events overnight. Patient still having per notes episodes of SVT requiring adenosine. Patient has been downgraded to IMCU but no beds available as of yet. Reason For Visit: SEPSIS,TACHYCARDIA,RENAL FAILURE Physical Exam Vital Signs: Temp Pulse Resp BP Pulse Ox 98.4 F 76 15 136/73 H 96 11/23/19 03:47 11/22/19 20:00 11/23/19 06:00 11/23/19 05:51 11/22/19 18:00 Intake & Output 11/22/19 11/23/19 11/24/19 06:59 06:59 06:59 Intake Total 1357 726 Output Total 1750 1450 Balance -393 -724 Weight 74.1 kg 74.1 kg General appearance: PRESENT: no acute distress, well-developed, well-nourished Head exam: PRESENT: atraumatic, normocephalic Eye exam: PRESENT: conjunctiva pink, EOMI, PERRLA. ABSENT: scleral icterus Ear exam: PRESENT: normal external ear exam Mouth exam: PRESENT: moist, tongue midline Neck exam: ABSENT: carotid bruit, JVD, lymphadenopathy, thyromegaly Respiratory exam: PRESENT: clear to auscultation rebecca. ABSENT: rales, rhonchi, wheezes Cardiovascular exam: PRESENT: RRR. ABSENT: diastolic murmur, rubs, systolic murmur Pulses: PRESENT: normal dorsalis pedis pul Vascular exam: PRESENT: normal capillary refill GI/Abdominal exam: PRESENT: normal bowel sounds, soft. ABSENT: distended, guarding, mass, organolmegaly, rebound, tenderness Rectal exam: PRESENT: deferred Extremities exam: PRESENT: full ROM. ABSENT: calf tenderness, clubbing, pedal edema Neurological exam: PRESENT: alert, awake, oriented to person, oriented to place, oriented to time, oriented to situation, CN II-XII grossly intact. ABSENT: motor sensory deficit Psychiatric exam: PRESENT: appropriate affect, normal mood. ABSENT: homicidal ideation, suicidal ideation Skin exam: PRESENT: dry, intact, warm. ABSENT: cyanosis, rash Results Laboratory Results: 11/23/19 06:02 11/23/19 06:02 11/22/19 11/23/19 11/23/19 12:35 06:02 06:02 WBC 11.8 H RBC 2.86 L Hgb 8.0 L Hct 24.3 L MCV 85 MCH 27.9 MCHC 32.9 RDW 21.6 H Plt Count 348 Seg Neutrophils % Not Reportable Sodium Potassium Chloride Carbon Dioxide Anion Gap BUN Creatinine Est GFR ( Amer) Glucose Calcium Ionized Calcium Yola 0.89 L 0.85 L Phosphorus Magnesium Total Bilirubin AST Alkaline Phosphatase Total Protein Albumin 11/23/19 06:02 WBC RBC Hgb Hct MCV MCH MCHC RDW Plt Count Seg Neutrophils % Sodium 144.9 Potassium 4.1 Chloride 107 Carbon Dioxide 31 H Anion Gap 7 BUN 19 Creatinine 1.03 Est GFR ( Amer) > 60 Glucose 79 Calcium 6.3 L* Ionized Calcium Yola Phosphorus 2.4 L Magnesium 1.7 Total Bilirubin 0.5 AST 132 H Alkaline Phosphatase 2165 H Total Protein 5.7 L Albumin 2.9 L 11/17/19 16:22 Blood Blood Culture - Final NO GROWTH IN 5 DAYS 11/17/19 13:25 Blood Blood Culture - Final NO GROWTH IN 5 DAYS 11/17/19 11/17/19 11/17/19 13:25 13:25 13:25 Creatine Kinase 211 H CK-MB (CK-2) 0.43 Troponin I 0.051 NT-Pro-B Natriuret Pep 11/17/19 11/18/19 23:06 05:40 Creatine Kinase 182 H CK-MB (CK-2) Troponin I NT-Pro-B Natriuret Pep 317 H Impressions: Cervical Spine CT 11/17/19 00:00 IMPRESSION: MULTIPLE SCLEROTIC LESIONS IN THE VERTEBRAE CONSISTENT WITH BONY METASTASES. NO ACUTE FINDINGS IN THE CERVICAL SPINE. Head CT 11/17/19 00:00 IMPRESSION: SURGICAL CHANGES IN THE RIGHT FRONTAL LOBE WITH MILD ENCEPHALOMALACIA. MILD CHRONIC CHANGES OF ATROPHY AND MICROVASCULAR ISCHEMIA. NO ACUTE PROCESS. EVIDENCE OF ACUTE STROKE: NO. Chest/Abdomen CTA 11/17/19 14:00 IMPRESSION: 1. NORMAL CTA OF THE CHEST. NO PULMONARY EMBOLI. 2. CARDIOMEGALY WITH BILATERAL PLEURAL EFFUSIONS AND COMPRESSIVE ATELECTASIS IN THE LUNG BASES. HAZY GROUND-GLASS OPACITIES THROUGHOUT BOTH LUNGS LIKELY REPRESENTS EARLY PULMONARY EDEMA. 3. PERICARDIAL EFFUSION. 4. EXTENSIVE SCLEROTIC BONY METASTASES. Chest X-Ray 11/18/19 06:00 IMPRESSION: Unchanged left retrocardiac opacity associated with air bronchograms. Carotid Doppler Study 11/19/19 00:00 IMPRESSION: NO HEMODYNAMICALLY SIGNIFICANT STENOSIS. Assessment & Plan - Diagnosis (1) Metastatic adenocarcinoma to prostate Is this a current diagnosis for this admission?: Yes Plan: It appears that palliative care is discussed with patient, but I do not think family is ready for that yet from notes. I talked to the patient this morning and he did not seem to remember all the conversation. But he tells me he wants to keep getting treatment for the prostate cancer. - Time Time Spent with patient: 35 or more minutes
[2019-11-23] MEDS: INSULIN REG, HUMAN 100 UNIT/ML 3 ML VIAL (PYX) SUBCUT SCH ×4 (08:46→21:49)
[2019-11-23] MEDS ORDERED: POTASSIUM CHLORIDE 10 MEQ TABLET.ER PO ONE (09:26)
[2019-11-23] MEDS: CALCIUM CARBONATE 250 MG/VITAMIN D3 125 UNIT TABLET PO SCH ×3 (09:34→17:54)
[2019-11-23] MEDS: PREDNISONE 10 MG TABLET PO SCH (09:34)
[2019-11-23] MEDS: SITAGLIPTIN PHOSPHATE 50 MG TABLET PO SCH (09:35)
[2019-11-23] MEDS: LEVETIRACETAM 500 MG TABLET PO SCH ×2 (09:35→21:54)
[2019-11-23] MEDS: FENTANYL 25 MCG/HR PATCH.TD72 TOP SCH (09:37)
[2019-11-23] MEDS ORDERED: ERGOCALCIFEROL (VITAMIN D2) 50000 UNIT (1.25 MG) CAPSULE PO SCH (10:00)
--- NOTE | 2019-11-23 13:22 | PDOC CRITICAL CARE PROG REPORT ---
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 11.22.2019: As noted in provider notes patient had recurrent episodes of SVT. This required adenosine for reversal. During these episodes he is neither hypotensive or symptomatic as far as chest pain or shortness of breath. He is unaware that these situations are occurring. No nausea vomiting or abdominal pain as well. 11.21.2019: The patient has remained in normal sinus rhythm at a controlled rate (less than 90). His blood pressure is better controlled as well. He is much more awake and responsive. His torticollis is both subjectively and clinically improved. Had no difficulty urinating after removal of his Amanda catheter. He was downgraded to medical floor telemetry status remains in the ICU secondary to inability to transfer secondary to bed capacity 11.20.2019: Patient has remained in a normal sinus rhythm since the adenosine was given yesterday. On rounds vasopressin has been discontinued and esmolol was discontinued. Patient had confusion and was agitated last evening but today is lucid and has no agitation or delirium. 11.19.2019: Patient's tachycardia has worsened today. He is asymptomatic. Also developed hypotension with beta-jennifer treatment. He was given a stat dose of low-dose vasopressin which improved his blood pressure. Of note, his torticollis has improved. 11.18.2019: Patient's tachycardia has improved with beta-jennifer therapy and IV fluids. He discloses no pain no abdominal discomfort no headache. His neck spasm has improved slightly but not dramatically. Review of systems relevant to events:: 11.22.2019: As noted above. Currently, no complaints. Tolerating diet. Electrolytes replaced. Steroids reduced. No fever, no hypotension 11.21.2019: Stable hemodynamics throughout the day. No pain, no dyspnea. Neck is much improved 11.20.2019: Carotid ultrasound was unremarkable. Torticollis is remarkably improved and patient has now good rotation of his head and neck. He has no pain. He is anorexic and not eating well. 11.19.2019: In concern for an atypical tachycardia syndrome a carotid ultrasound was done to assure that the torticollis was not causing carotid baroreceptor changes. This was essentially unremarkable. We also consulted cardiology who felt that this was an atypical atrial dysrhythmia and with the use of adenosine were able to convert him to a sinus rhythm at a rate of 70-80. We are grateful for cardiology's assistance. He is also been maintained on esmolol drip without any further hypotension. 11.18.2019: Patient had bedside echocardiogram which showed a minimal pleural effusion. Notably his IVC was definitively underfilled and had significant respirophasic changes when seen. - Medications: Medications reviewed and adjusted accordingly: Yes Vasopressors:: None Physical Exam Vital Signs: Temp Pulse Resp BP Pulse Ox 99.1 F 87 20 120/84 96 11/23/19 12:00 11/23/19 12:00 11/23/19 12:00 11/23/19 12:00 11/23/19 12:00 Intake & Output 11/22/19 11/23/19 11/24/19 06:59 06:59 06:59 Intake Total 1357 726 360 Output Total 1750 1450 0 Balance -393 -724 360 Weight 74.1 kg 74.1 kg Weight/Height Weight 74.1 kg Height 6 ft General appearance: PRESENT: no acute distress, well-developed, well-nourished Head exam: PRESENT: atraumatic, normocephalic Eye exam: PRESENT: conjunctiva pink, EOMI, PERRLA. ABSENT: scleral icterus Ear exam: PRESENT: normal external ear exam Mouth exam: PRESENT: moist, tongue midline Neck exam: ABSENT: carotid bruit, JVD, lymphadenopathy, thyromegaly Respiratory exam: PRESENT: clear to auscultation rebecca. ABSENT: rales, rhonchi, wheezes Cardiovascular exam: PRESENT: RRR. ABSENT: diastolic murmur, rubs, systolic murmur Pulses: PRESENT: normal dorsalis pedis pul Vascular exam: PRESENT: normal capillary refill GI/Abdominal exam: PRESENT: normal bowel sounds, soft. ABSENT: distended, guarding, mass, organolmegaly, rebound, tenderness Rectal exam: PRESENT: deferred Extremities exam: PRESENT: full ROM. ABSENT: calf tenderness, clubbing, pedal edema Neurological exam: PRESENT: alert, awake, oriented to person, oriented to place, oriented to time, oriented to situation, CN II-XII grossly intact. ABSENT: motor sensory deficit Skin exam: PRESENT: dry, intact, warm. ABSENT: cyanosis, rash Laboratory/Radiographs Laboratory Results: 11/23/19 06:02 11/23/19 06:02 11/23/19 11/23/19 11/23/19 06:02 06:02 06:02 WBC 11.8 H RBC 2.86 L Hgb 8.0 L Hct 24.3 L MCV 85 MCH 27.9 MCHC 32.9 RDW 21.6 H Plt Count 348 Seg Neutrophils % Not Reportable Sodium 144.9 Potassium 4.1 Chloride 107 Carbon Dioxide 31 H Anion Gap 7 BUN 19 Creatinine 1.03 Est GFR ( Amer) > 60 Glucose 79 Calcium 6.3 L* Ionized Calcium Yola 0.85 L Phosphorus 2.4 L Magnesium 1.7 Total Bilirubin 0.5 AST 132 H Alkaline Phosphatase 2165 H Total Protein 5.7 L Albumin 2.9 L 11/17/19 16:22 Blood Blood Culture - Final NO GROWTH IN 5 DAYS 11/17/19 13:25 Blood Blood Culture - Final NO GROWTH IN 5 DAYS 11/17/19 11/17/19 11/17/19 13:25 13:25 13:25 Creatine Kinase 211 H CK-MB (CK-2) 0.43 Troponin I 0.051 NT-Pro-B Natriuret Pep 11/17/19 11/18/19 23:06 05:40 Creatine Kinase 182 H CK-MB (CK-2) Troponin I NT-Pro-B Natriuret Pep 317 H Impressions: Cervical Spine CT 11/17/19 00:00 IMPRESSION: MULTIPLE SCLEROTIC LESIONS IN THE VERTEBRAE CONSISTENT WITH BONY METASTASES. NO ACUTE FINDINGS IN THE CERVICAL SPINE. Head CT 11/17/19 00:00 IMPRESSION: SURGICAL CHANGES IN THE RIGHT FRONTAL LOBE WITH MILD ENCEPHALOMALACIA. MILD CHRONIC CHANGES OF ATROPHY AND MICROVASCULAR ISCHEMIA. NO ACUTE PROCESS. EVIDENCE OF ACUTE STROKE: NO. Chest/Abdomen CTA 11/17/19 14:00 IMPRESSION: 1. NORMAL CTA OF THE CHEST. NO PULMONARY EMBOLI. 2. CARDIOMEGALY WITH BILATERAL PLEURAL EFFUSIONS AND COMPRESSIVE ATELECTASIS IN THE LUNG BASES. HAZY GROUND-GLASS OPACITIES THROUGHOUT BOTH LUNGS LIKELY REPRESENTS EARLY PULMONARY EDEMA. 3. PERICARDIAL EFFUSION. 4. EXTENSIVE SCLEROTIC BONY METASTASES. Chest X-Ray 11/18/19 06:00 IMPRESSION: Unchanged left retrocardiac opacity associated with air bronchogr ams. Carotid Doppler Study 11/19/19 00:00 IMPRESSION: NO HEMODYNAMICALLY SIGNIFICANT STENOSIS. All labs, radiographs, diagnostic studies and EKGs were personally reviewed: Yes In addition, reports of radiographic and diagnostic studies were read: Yes Assessment and Plan - Diagnosis (1) Atrial dysrhythmia Is this a current diagnosis for this admission?: Yes (2) Hypocalcemia Is this a current diagnosis for this admission?: Yes (3) Metastasis to brain Is this a current diagnosis for this admission?: Yes (4) Metastatic adenocarcinoma to prostate Is this a current diagnosis for this admission?: Yes (5) Moderate protein-energy malnutrition Is this a current diagnosis for this admission?: Yes (7) Sinus tachycardia Is this a current diagnosis for this admission?: Yes (8) Torticollis, acquired Is this a current diagnosis for this admission?: Yes Plan Summary: 69yo M with metastatic prostate cancer doing much better overall. Torticolis resolved and patient has had no more episodes of SVT since switching to verapamil. Downgrade to telemetry unit today. Critical Time Critical Time (minutes): 30 Level of Care: ICU Anticipated discharge: Home Within: within 48 hours -: 1. The care of a critical patient is a dynamic process. This note is a telemarketing representative synopsis but static in nature. The timeframe for treatments given in order is not necessarily the actual time these treatments may have been done. 2. This patient requires critical care secondary to ongoing requirements for therapy not offered or safe outside the critical care environment. Transfer to a lower level of care will result in altered life or limb morbidity and mortality. 3. Multidisciplinary rounds completed. 4. ABCDE bundle addressed.
[2019-11-23] MEDS: TAMSULOSIN HCL 0.4 MG CAP.SR.24H PO SCH (17:54)
--- NOTE | 2019-11-23 18:22 | Progress Note ---
Provider Note Provider Note: CARDIOLOGY PROGRESS NOTE by Dr. Mavis Mandel on 11/23/2019. OBJECTIVE: The patient remains in sinus rhythm with a slightly prolonged QT intervals on the monitor. There is no recurrence of SVT. The patient denies any chest pain or discomfort. There is no shortness of breath there is no PND orthopnea. His calcium is much improved and is ionized calcium last reported was 0.90. There is no TIA CVA symptoms. There is no ventricular arrhythmia seen on the monitor. The patient has been downgraded to the telemetry. PHYSICAL EXAMINATION: The patient appears to be chronically ill. In no acute distress Selected Entries 11/23/19 16:00 Temperature 98.6 F Temperature Oral Source Pulse Rate 81 Respiratory 14 Rate Blood Pressure 121/82 [Upper Arm] Blood Pressure 95 Mean [Upper Arm ] Blood Pressure Supine Position [Upper Arm] O2 Sat by Pulse 98 Oximetry Oxygen Delivery Room Air Method ( includes room air) HEAD: Scar of prior right craniotomy present. Normocephalic. EYES: Pupils are equal round regular reactive to light and accommodation. There is conjunctival pallor. There is no scleral icterus. EARS: Tympanic membranes are intact. External auditory canals are clear. NOSE nose: There is no deviated nasal septum. There is no inflammation nasal mucous membrane. MOUTH: Mucous membranes of mouth are slightly dry. There is no bleeding from the gums. THROAT: There is no redness of the oropharynx. There is no exudates. SKIN: The re is no petechia or ecchymosis. There is no skin lesions or skin rashes. 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 Right side of neck is tender neck movements are limited due to pain and muscle spasm. There is no palpable lymphadenopathy. There is no goiter. There is no accessory muscle respiration use. TRACHEA is central. LUNGS: Clear to auscultation percussion. Heart: S1-S2 is heard. There is no S3 gallop. There is no S4 gallop. There is mild mitral regurgitation murmur present. There is no aortic stenosis or aortic regurgitation murmur. There is no S3 gallop. There is no S4 gallop. S1 is of normal intensity. There is no rub. ABDOMEN: Soft nontender. There is no hepatosplenomegaly bowel sounds are well heard. EXTREMITIES: Femorals are well felt. There is no femoral bruits. Leg pulses well felt. There is no pedal edema. There is no DVT or cellulitis. There is no cyanosis or clubbing. 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 And also situation. He has weak upper extremity and lower extremity. No focal deficits though. PSYCHIATRIC: Patient is in spite of his low blood pressures judgment site seem to be intact. He does not appear to be anxious or agitated. Labs- All tests 24 hr 11/22/19 11/23/19 11/23/19 20:56 06:02 06:02 WBC 11.8 H RBC 2.86 L Hgb 8.0 L Hct 24.3 L MCV 85 MCH 27.9 MCHC 32.9 RDW 21.6 H Plt Count 348 Lymph % (Auto) Not Reportable Bee % (Auto) Not Reportable Eos % (Auto) Not Reportable Baso % (Auto) Not Reportable Absolute Neuts (auto) Not Reportable Absolute Lymphs (auto) Not Reportable Absolute Monos (auto) Not Reportable Absolute Eos (auto) Not Reportable Absolute Basos (auto) Not Reportable Total Counted 100 Seg Neutrophils % Not Reportable Seg Neuts % (Manual) 84 H Lymphocytes % (Manual) 11 L Monocytes % (Manual) 5 Eosinophils % (Manual) 0 Basophils % (Manual) 0 Abs Neuts (Manual) 9.9 H Abs Lymphs (Manual) 1.3 Abs Monocytes (Manual) 0.6 Absolute Eos (Manual) 0.0 Abs Basophils (Manual) 0.0 Toxic Granulation SLIGHT Toxic Vacuolation PRESENT Platelet Comment ADEQUATE Polychromasia SLIGHT Anisocytosis 3+ Tear Drop Cells SLIGHT Ovalocytes SLIGHT Sodium Potassium Chloride Carbon Dioxide Anion Gap BUN Creatinine Est GFR ( Amer) Est GFR (MDRD) Non-Af Glucose POC Glucose 125 H Calcium Ionized Calcium Yola 0.85 L Phosphorus Magnesium Total Bilirubin Direct Bilirubin Neonat Total Bilirubin Neonat Direct Bilirubin Neonat Indirect Bili AST ALT Alkaline Phosphatase Total Protein Albumin 11/23/19 11/23/19 11/23/19 06:02 08:22 11:56 WBC RBC Hgb Hct MCV MCH MCHC RDW Plt Count Lymph % (Auto) Bee % (Auto) Eos % (Auto) Baso % (Auto) Absolute Neuts (auto) Absolute Lymphs (auto) Absolute Monos (auto) Absolute Eos (auto) Absolute Basos (auto) Total Counted Seg Neutrophils % Seg Neuts % (Manual) Lymphocytes % (Manual) Monocytes % (Manual) Eosinophils % (Manual) Basophils % (Manual) Abs Neuts (Manual) Abs Lymphs (Manual) Abs Monocytes (Manual) Absolute Eos (Manual) Abs Basophils (Manual) Toxic Granulation Toxic Vacuolation Platelet Comment Polychromasia Anisocytosis Tear Drop Cells Ovalocytes Sodium 144.9 Potassium 4.1 Chloride 107 Carbon Dioxide 31 H Anion Gap 7 BUN 19 Creatinine 1.03 Est GFR ( Amer) > 60 Est GFR (MDRD) Non-Af > 60 Glucose 79 POC Glucose 88 102 Calcium 6.3 L* Ionized Calcium Yola Phosphorus 2.4 L Magnesium 1.7 Total Bilirubin 0.5 Direct Bilirubin 0.2 Neonat Total Bilirubin 0.3 Neonat Direct Bilirubin 0.0 Neonat Indirect Bili 0.3 AST 132 H ALT 21 Alkaline Phosphatase 2165 H Total Protein 5.7 L Albumin 2.9 L 11/23/19 11/23/19 16:45 17:38 WBC RBC Hgb Hct MCV MCH MCHC RDW Plt Count Lymph % (Auto) Bee % (Auto) Eos % (Auto) Baso % (Auto) Absolute Neuts (auto) Absolute Lymphs (auto) Absolute Monos (auto) Absolute Eos (auto) Absolute Basos (auto) Total Counted Seg Neutrophils % Seg Neuts % (Manual) Lymphocytes % (Manual) Monocytes % (Manual) Eosinophils % (Manual) Basophils % (Manual) Abs Neuts (Manual) Abs Lymphs (Manual) Abs Monocytes (Manual) Absolute Eos (Manual) Abs Basophils (Manual) Toxic Granulation Toxic Vacuolation Platelet Comment Polychromasia Anisocytosis Tear Drop Cells Ovalocytes Sodium Potassium Chloride Carbon Dioxide Anion Gap BUN Creatinine Est GFR ( Amer) Est GFR (MDRD) Non-Af Glucose POC Glucose 154 H Calcium Ionized Calcium Yola 0.90 L Phosphorus Magnesium Total Bilirubin Direct Bilirubin Neonat Total Bilirubin Neonat Direct Bilirubin Neonat Indirect Bili AST ALT Alkaline Phosphatase Total Protein Albumin Cervical Spine CT 11/17/19 00:00 IMPRESSION: MULTIPLE SCLEROTIC LESIONS IN THE VERTEBRAE CONSISTENT WITH BONY METASTASES. NO ACUTE FINDINGS IN THE CERVICAL SPINE. Head CT 11/17/19 00:00 IMPRESSION: SURGICAL CHANGES IN THE RIGHT FRONTAL LOBE WITH MILD ENCEPHALOMALACIA. MILD CHRONIC CHANGES OF ATROPHY AND MICROVASCULAR ISCHEMIA. NO ACUTE PROCESS. EVIDENCE OF ACUTE STROKE: NO. Chest X-Ray 11/17/19 12:54 IMPRESSION: LEFT LOWER LOBE INFILTRATE SUSPICIOUS FOR PNEUMONIA. Chest/Abdomen CTA 11/17/19 14:00 IMPRESSION: 1. NORMAL CTA OF THE CHEST. NO PULMONARY EMBOLI. 2. CARDIOMEGALY WITH BILATERAL PLEURAL EFFUSIONS AND COMPRESSIVE ATELECTASIS IN THE LUNG BASES. HAZY GROUND-GLASS OPACITIES THROUGHOUT BOTH LUNGS LIKELY REPRESENTS EARLY PULMONARY EDEMA. 3. PERICARDIAL EFFUSION. 4. EXTENSIVE SCLEROTIC BONY METASTASES. Chest X-Ray 11/18/19 06:00 IMPRESSION: Unchanged left retrocardiac opacity associated with air bronchograms. Carotid Doppler Study 11/19/19 00:00 IMPRESSION: NO HEMODYNAMICALLY SIGNIFICANT STENOSIS. IMPRESSION/recommendation: 1. Paroxysmal supraventricular tachycardia:: Terminated with 1 dose of adenosine. The patient's vasopressin and esmolol drip has been discontinued yesterday. The patient is now on oral calcium channel jennifer and tolerating it well. He remains in sinus rhythm. We will decrease the patient's verapamil to his 80 mg p.o. every 8 hours. Later we will transition to a long-acting preparation. 2. Torticollis: Possibly secondary to underlying infection causing muscle spasm and pain versus secondary to metastatic cervical spine disease. This is resolved 3. Hypertension blood pressure came up once the SVT was terminated. The patient is on vasopressin for concerns of possible sepsis. We will continue that. At present blood pressures well controlled. 4. Possible sepsis: Continue antibiotics and vasopressin. 5. 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 6. Possible left lower lobe pneumonia: Continue antibiotics. Continue hydration. 7. Cardiomyopathy. Most likely rate related. The patient and the son-in-law's states there is no prior cardiac issues with the patient. There is no history of congestive heart failure or any atrial arrhythmia. Once the patient's heart rate is controlled we will repeat the echo to see if it is rate related cardiomyopathy. 8. Hypokalemia and hypocalcemia: Replenish potassium and calcium. This is being done. Potassium is now normal. Calcium is improved to ionized calcium level of 0.90 which is just mildly reduced. 9. Anemia: Consider blood transfusion. 10.. History of hypertension: Is well controlled. Medications reviewed. Medications adjusted. 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 Medical decision making is of high complexity due to need to adjust the dosage of his medications. 40 minutes spent on this patient with more than 50% time spent in direct patient care. Will follow.
[2019-11-23] MEDS: ATORVASTATIN CALCIUM 10 MG TABLET PO SCH (21:54)
[2019-11-24] MEDS: POTASSIUM CHLORIDE 10 MEQ TABLET.ER PO SCH ×2 (03:59→06:39)
[2019-11-24] MEDS: HEPARIN SOD (PORCINE) 5,000 UNIT/ML 1 ML VIAL SUBCUT SCH ×3 (04:00→18:08)
[2019-11-24 04:31] LABS: HEMATOCRIT 24.6 % (37.9-51.0); MEAN CORPUSCULAR HGB CONC 32.7 g/dL (32.0-36.0); MEAN CORPUSCULAR VOLUME 86 fl (80-97); PLATELET COUNT 302 10^3/uL (150-450); RED BLOOD COUNT 2.87 10^6/uL (4.35-5.55); RED CELL DISTRIBUTION WIDTH 21.7 % (11.5-14.0); WHITE BLOOD COUNT 11.1 10^3/uL (4.0-10.5)
[2019-11-24 04:44] LABS: ANION GAP 6 (5-19); ASPARTATE AMINO TRANSFERASE 123 U/L (17-59); BILIRUBIN,DIRECT 0.2 mg/dL (0.0-0.4); BILIRUBIN,TOTAL 0.6 mg/dL (0.2-1.3); BLOOD UREA NITROGEN 16 mg/dL (7-20); CARBON DIOXIDE 28 mmol/L (22-30); CHLORIDE 111 mmol/L (98-107); GLUCOSE 82 mg/dL (75-110); NEONATAL BILIRUBIN RESULT 0.3 mg/dL (0.1-1.1); TOTAL PROTEIN 5.7 g/dL (6.3-8.2)
[2019-11-24 04:57] LABS: ALKALINE PHOSPHATASE 2402 U/L (38-126)
[2019-11-24 04:59] LABS: POTASSIUM 6.3 mmol/L (3.6-5.0)
[2019-11-24] MEDS: VERAPAMIL HCL 80 MG TABLET PO SCH (05:16)
[2019-11-24 05:24] LABS: ABSOLUTE LYMPHOCYTES# (MANUAL) 0.4 10^3/uL (0.5-4.7); ABSOLUTE MONOCYTES # (MANUAL) 0.3 10^3/uL (0.1-1.4); BAND NEUTROPHILS % (MANUAL) 1 % (3-5); BASOPHILS % (MANUAL) 0 % (0-2); EOSINOPHILS % (MANUAL) 2 % (0-6); LYMPHOCYTES % (MANUAL) 4 % (13-45); MONOCYTES % (MANUAL) 3 % (3-13); PLATELET COMMENT ADEQUATE; SEGMENTED NEUTROPHILS % (MAN) 84 % (42-78); TOTAL CELLS COUNTED 100
[2019-11-24 05:25] LABS: ANISOCYTOSIS 3+
[2019-11-24 05:26] LABS: TOXIC GRANULATION SLIGHT
[2019-11-24 05:27] LABS: OVALOCYTES SLIGHT; TEAR DROP CELLS SLIGHT
[2019-11-24 05:28] LABS: POLYCHROMASIA SLIGHT
[2019-11-24 05:29] LABS: MYELOCYTES % (MANUAL) 5 % (0); PROMYELOCYTES % (MANUAL) 1 % (0)
--- NOTE | 2019-11-24 08:13 | PDOC PROGRESS REPORT ---
Subjective Progress Note for:: 11/24/19 Subjective:: Patient states that he is feeling better, eating well. Trying to get his strength back. ROS: No chest pain. No constipation. Reason For Visit: SVT Physical Exam Vital Signs: Temp Pulse Resp BP Pulse Ox 98.5 F 82 19 124/70 98 11/24/19 03:37 11/24/19 03:37 11/24/19 03:37 11/24/19 03:37 11/24/19 03:37 Intake & Output 11/23/19 11/24/19 11/25/19 06:59 06:59 06:59 Intake Total 726 1260 Output Total 1450 1275 Balance -724 -15 Weight 74.1 kg 71.9 kg General appearance: PRESENT: no acute distress, well-developed, well-nourished Head exam: PRESENT: normocephalic Respiratory exam: PRESENT: clear to auscultation rebecca, unlabored Cardiovascular exam: PRESENT: RRR Extremities exam: ABSENT: pedal edema Neurological exam: PRESENT: alert, awake Psychiatric exam: PRESENT: appropriate affect Skin exam: PRESENT: normal color Results Laboratory Results: 11/24/19 04:05 11/24/19 04:05 11/23/19 11/24/19 11/24/19 16:45 04:05 04:05 WBC 11.1 H RBC 2.87 L Hgb 8.0 L Hct 24.6 L MCV 86 MCH 28.0 MCHC 32.7 RDW 21.7 H Plt Count 302 Seg Neutrophils % Not Reportable Sodium Potassium Chloride Carbon Dioxide Anion Gap BUN Creatinine Est GFR ( Amer) Glucose Calcium Ionized Calcium Yola 0.90 L 0.94 L Total Bilirubin AST Alkaline Phosphatase Total Protein Albumin 11/24/19 04:05 WBC RBC Hgb Hct MCV MCH MCHC RDW Plt Count Seg Neutrophils % Sodium 144.6 Potassium 6.3 H* D Chloride 111 H Carbon Dioxide 28 Anion Gap 6 BUN 16 Creatinine 1.08 Est GFR ( Amer) > 60 Glucose 82 Calcium 7.0 L* Ionized Calcium Yola Total Bilirubin 0.6 AST 123 H Alkaline Phosphatase 2402 H Total Protein 5.7 L Albumin 3.0 L 11/17/19 11/17/19 11/17/19 13:25 13:25 13:25 Creatine Kinase 211 H CK-MB (CK-2) 0.43 Troponin I 0.051 NT-Pro-B Natriuret Pep 11/17/19 11/18/19 23:06 05:40 Creatine Kinase 182 H CK-MB (CK-2) Troponin I NT-Pro-B Natriuret Pep 317 H Impressions: Cervical Spine CT 11/17/19 00:00 IMPRESSION: MULTIPLE SCLEROTIC LESIONS IN THE VERTEBRAE CONSISTENT WITH BONY METASTASES. NO ACUTE FINDINGS IN THE CERVICAL SPINE. Head CT 11/17/19 00:00 IMPRESSION: SURGICAL CHANGES IN THE RIGHT FRONTAL LOBE WITH MILD ENCEPHALOMALACIA. MILD CHRONIC CHANGES OF ATROPHY AND MICROVASCULAR ISCHEMIA. NO ACUTE PROCESS. EVIDENCE OF ACUTE STROKE: NO. Chest/Abdomen CTA 11/17/19 14:00 IMPRESSION: 1. NORMAL CTA OF THE CHEST. NO PULMONARY EMBOLI. 2. CARDIOMEGALY WITH BILATERAL PLEURAL EFFUSIONS AND COMPRESSIVE ATELECTASIS IN THE LUNG BASES. HAZY GROUND-GLASS OPACITIES THROUGHOUT BOTH LUNGS LIKELY REPRESENTS EARLY PULMONARY EDEMA. 3. PERICARDIAL EFFUSION. 4. EXTENSIVE SCLEROTIC BONY METASTASES. Chest X-Ray 11/18/19 06:00 IMPRESSION: Unchanged left retrocardiac opacity associated with air bronchograms. Carotid Doppler Study 11/19/19 00:00 IMPRESSION: NO HEMODYNAMICALLY SIGNIFICANT STENOSIS. Assessment & Plan - Diagnosis (1) Hypocalcemia Is this a current diagnosis for this admission?: Yes Plan: Slowly improving with PO and IV Ca supplementations. Continue. (2) Prostate cancer metastatic to bone Is this a current diagnosis for this admission?: Yes Plan: All treatment on hold currently. ALK Phos still elevated. (3) Sepsis Qualifiers: Sepsis type: sepsis due to unspecified organism Sepsis acute organ dys function status: without acute organ dysfunction Qualified Code(s): A41.9 - Sepsis, unspecified organism Is this a current diagnosis for this admission?: Yes Plan: Greatly improved. Will need to wean Dex over the next few days. Potassium this morning was elevated. I have ordered a repeat draw. - Time Time Spent with patient: 15-24 minutes - Plan Summary Plan Summary: Will continue to follow. No further cancer treatment planned during this admission.
[2019-11-24 10:14] LABS: PATH REVIEW PATHOLOGIST REVIEWED
[2019-11-24] MEDS ORDERED: VERAPAMIL HCL 180 MG TABLET.SA PO SCH ×2 (11:00→22:00)
[2019-11-24] MEDS: INSULIN REG, HUMAN 100 UNIT/ML 3 ML VIAL (PYX) SUBCUT SCH ×4 (11:43→22:42)
[2019-11-24] MEDS: LEVETIRACETAM 500 MG TABLET PO SCH ×2 (11:50→21:36)
[2019-11-24] MEDS: SITAGLIPTIN PHOSPHATE 50 MG TABLET PO SCH (11:50)
[2019-11-24] MEDS: PREDNISONE 10 MG TABLET PO SCH (11:51)
[2019-11-24] MEDS: CALCIUM CARBONATE 250 MG/VITAMIN D3 125 UNIT TABLET PO SCH ×3 (11:51→18:08)
[2019-11-24 16:36] LABS: CREATININE URINE 29.4 mg/dL (Not Estab.)
[2019-11-24] MEDS: TAMSULOSIN HCL 0.4 MG CAP.SR.24H PO SCH (18:08)
--- NOTE | 2019-11-24 19:31 | Progress Note ---
Provider Note Provider Note: CARDIOLOGY PROGRESS NOTE by Dr. Mavis Starkey on 11/24/2019. SUBJECTIVE: The patient denies any chest pain discomfort. There is no shortness of breath. He is awake and alert. With no focal deficits. He denies any shortness of breath. There is no PND orthopnea. There is no recurrence of the patient's SVT. His calcium is slightly better. His potassium has been been over corrected, and is 6.3.. Earlier Dr. Haney called me since the patient's blood pressure was also low side in the 84 systolic range. The patient was asymptomatic. The patient was given 1 amp of calcium gluconate intravenously over half an hour. With this the blood pressure came up to the high 90s. The patient remains asymptomatic. Dosing parameters for verapamil has been ordered with the dose to be held if the systolic blood pressure below 110. We will also decrease the patient's verapamil dosage to verapamil 120 mg CD every 12 hours. PHYSICAL EXAMINATION: The patient appears to be chronically ill. At present in no acute distress. Selected Entries 11/24/19 11/24/19 11/24/19 16:29 17:00 19:17 Temperature 97.6 F 98.5 F Temperature Oral Oral Source Pulse Rate 95 Heart Rate ( 108 Monitors) Respiratory 16 20 Rate Blood Pressure 84/62 L 97/67 L Blood Pressure 69 77 Mean BP Location Right Arm Right Arm BP Position Supine Sitting O2 Sat by Pulse 99 100 Oximetry Oxygen Delivery Room Air Room Air Method HEAD: Scar of prior right craniotomy present. Normocephalic. EYES: Pupils are equal round regular reactive to light and accommodation. There is conjunctival pallor. There is no scleral icterus. EARS: Tympanic membranes are intact. External auditory canals are clear. NOSE nose: There is no deviated nasal septum. There is no inflammation nasal mucous membrane. MOUTH: Mucous membranes of mouth are slightly dry. There is no bleeding from the gums. THROAT: There is no redness of the oropharynx. There is no exudates. SKIN: There is no petechia or ecchymosis. There is no skin lesions or skin rashes. 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 Right side of neck is tender neck movements are limited due to pain and muscle spasm. There is no palpable lymphadenopathy. There is no goiter. There is no accessory muscle respiration use. TRACHEA is central. LUNGS: Clear to auscultation percussion. Heart: S1-S2 is heard. There is no S3 gallop. There is no S4 gallop. There is mild mitral regurgitation murmur present. There is no aortic stenosis or aortic regurgitation murmur. There is no S3 gallop. There is no S4 gallop. S1 is of normal intensity. There is no rub. ABDOMEN: Soft nontender. There is no hepatosplenomegaly bowel sounds are well heard. EXTREMITIES: Femorals are well felt. There is no femoral bruits. Leg pulses well felt. There is no pedal edema. There is no DVT or cellulitis. There is no cyanosis or clubbing. 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 And also situation. He has weak upper extremity and lower extremity. No focal deficits though. PSYCHIATRIC: Patient is in spite of his low blood pressures judgment site seem to be intact. He does not appear to be anxious or agitated. Labs- All tests 24 hr 11/24/19 11/24/19 11/24/19 04:05 04:05 04:05 WBC 11.1 H RBC 2.87 L Hgb 8.0 L Hct 24.6 L MCV 86 MCH 28.0 MCHC 32.7 RDW 21.7 H Plt Count 302 Lymph % (Auto) Not Reportable Bucks % (Auto) Not Reportable Eos % (Auto) Not Reportable Baso % (Auto) Not Reportable Absolute Neuts (auto) Not Reportable Absolute Lymphs (auto) Not Reportable Absolute Monos (auto) Not Reportable Absolute Eos (auto) Not Reportable Absolute Basos (auto) Not Reportable Total Counted 100 Seg Neutrophils % Not Reportable Seg Neuts % (Manual) 84 H Band Neutrophils % 1 L Lymphocytes % (Manual) 4 L Monocytes % (Manual) 3 Eosinophils % (Manual) 2 Basophils % (Manual) 0 Myelocytes % 5 H Promyelocytes % 1 H Abs Neuts (Manual) 10.1 H Abs Lymphs (Manual) 0.4 L Abs Monocytes (Manual) 0.3 Absolute Eos (Manual) 0.2 Abs Basophils (Manual) 0.0 Toxic Granulation SLIGHT Platelet Comment ADEQUATE Polychromasia SLIGHT Anisocytosis 3+ Tear Drop Cells SLIGHT Ovalocytes SLIGHT Sodium 144.6 Potassium 6.3 H* D Chloride 111 H Carbon Dioxide 28 Anion Gap 6 BUN 16 Creatinine 1.08 Est GFR ( Amer) > 60 Est GFR (MDRD) Non-Af > 60 Glucose 82 POC Glucose Calcium 7.0 L* Ionized Calcium Yola 0.94 L Total Bilirubin 0.6 Direct Bilirubin 0.2 Neonat Total Bilirubin 0.3 Neonat Direct Bilirubin 0.0 Neonat Indirect Bili 0.3 AST 123 H ALT 21 Alkaline Phosphatase 2402 H Total Protein 5.7 L Albumin 3.0 L Slides for Path Review PATHOLOGIST REVIEWED 11/24/19 11/24/19 11/24/19 07:54 11:50 16:26 WBC RBC Hgb Hct MCV MCH MCHC RDW Plt Count Lymph % (Auto) Bucks % (Auto) Eos % (Auto) Baso % (Auto) Absolute Neuts (auto) Absolute Lymphs (auto) Absolute Monos (auto) Absolute Eos (auto) Absolute Basos (auto) Total Counted Seg Neutrophils % Seg Neuts % (Manual) Band Neutrophils % Lymphocytes % (Manual) Monocytes % (Manual) Eosinophils % (Manual) Basophils % (Manual) Myelocytes % Promyelocytes % Abs Neuts (Manual) Abs Lymphs (Manual) Abs Monocytes (Manual) Absolute Eos (Manual) Abs Basophils (Manual) Toxic Granulation Platelet Comment Polychromasia Anisocytosis Tear Drop Cells Ovalocytes Sodium Potassium Chloride Carbon Dioxide Anion Gap BUN Creatinine Est GFR ( Amer) Est GFR (MDRD) Non-Af Glucose POC Glucose 92 80 114 H Calcium Ionized Calcium Yola Total Bilirubin Direct Bilirubin Neonat Total Bilirubin Neonat Direct Bilirubin Neonat Indirect Bili AST ALT Alkaline Phosphatase Total Protein Albumin Slides for Path Review 11/24/19 22:00 WBC RBC Hgb Hct MCV MCH MCHC RDW Plt Count Lymph % (Auto) Bucks % (Auto) Eos % (Auto) Baso % (Auto) Absolute Neuts (auto) Absolute Lymphs (auto) Absolute Monos (auto) Absolute Eos (auto) Absolute Basos (auto) Total Counted Seg Neutrophils % Seg Neuts % (Manual) Band Neutrophils % Lymphocytes % (Manual) Monocytes % (Manual) Eosinophils % (Manual) Basophils % (Manual) Myelocytes % Promyelocytes % Abs Neuts (Manual) Abs Lymphs (Manual) Abs Monocytes (Manual) Absolute Eos (Manual) Abs Basophils (Manual) Toxic Granulation Platelet Comment Polychromasia Anisocytosis Tear Drop Cells Ovalocytes Sodium Potassium Chloride Carbon Dioxide Anion Gap BUN Creatinine Est GFR ( Amer) Est GFR (MDRD) Non-Af Glucose POC Glucose 98 Calcium Ionized Calcium Yola Total Bilirubin Direct Bilirubin Neonat Total Bilirubin Neonat Direct Bilirubin Neonat Indirect Bili AST ALT Alkaline Phosphatase Total Protein Albumin Slides for Path Review IMPRESSION/recommendation: 1. Paroxysmal supraventricular tachycardia:: Terminated with 1 dose of adenosine. The patient's vasopressin and esmolol drip has been discontinued yesterday. The patient is now on oral calcium channel jennifer and tolerating it well. He remains in sinus rhythm. We will decrease the patient's verapamil to his 80 mg p.o. every 8 hours. Later we will transition to a long-acting preparation. 2. Torticollis: Possibly secondary to underlying infection causing muscle spasm and pain versus secondary to metastatic cervical spine disease. This is resolved 3 asymptomatic hypotension: The patient was given Cardizem which brought the blood pressure up. Will write parameters for verapamil dosing. This has been discussed with Dr. Haney. 4. Possible sepsis: Continue antibiotics and vasopressin. 5. History of hypertension: At present blood pressures on the low side. 6. 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 7. Possible left lower lobe pneumonia: Continue antibiotics. Continue hydration. 8. Cardiomyopathy. Most likely rate related. The patient and the son-in-law's states there is no prior cardiac issues with the patient. There is no history of congestive heart failure or any atrial arrhythmia. Once the patient's heart rate is controlled we will repeat the echo to see if it is rate related cardiomyopathy. 9. Hypokalemia and hypocalcemia: Replenish potassium and calcium. This is being done. Potassium is now high at 6.3. We will stop the patient's potassium. Calcium is improved to ionized calcium level of 0.90 which is just mildly reduced. 10. Diabetes mellitus: Continue antidiabetic medication. Continue serial Accu-Cheks. Medications reviewed. After discussion with Dr. Vasquez her medication dosages adjusted new medications given. Medical regimen and management plan discussed with Dr. Haney medical decision making is of high complexity. 40 minutes spent on the patient more than 50% of time spent in direct patient care. Will follow
[2019-11-24] MEDS ORDERED: CALCIUM GLUCONATE 1000 MG/10 ML INJ IV ONE (20:45)
[2019-11-24] MEDS: ATORVASTATIN CALCIUM 10 MG TABLET PO SCH (21:36)
[2019-11-24] MEDS ORDERED: VERAPAMIL HCL 180 MG TABLET.SA PO ONE (23:30)
[2019-11-25] MEDS: HEPARIN SOD (PORCINE) 5,000 UNIT/ML 1 ML VIAL SUBCUT SCH ×3 (04:00→18:01)
--- NOTE | 2019-11-25 08:46 | PDOC PROGRESS REPORT ---
Subjective Progress Note for:: 11/25/19 Subjective:: Patient looking much better today than when I saw him last, he was sitting up in a chair and eating breakfast, he got up to the restroom right before he came in nursing noted that he did not require assistance. Reason For Visit: SVT Physical Exam Vital Signs: Temp Pulse Resp BP Pulse Ox 97.6 F 98 18 109/72 99 11/25/19 08:26 11/25/19 08:26 11/25/19 08:26 11/25/19 08:26 11/25/19 08:26 Intake & Output 11/24/19 11/25/19 11/26/19 06:59 06:59 06:59 Intake Total 1260 680 Output Total 1275 675 Balance -15 5 Weight 71.9 kg 70.1 kg General appearance: PRESENT: no acute distress, well-developed, well-nourished Head exam: PRESENT: atraumatic, normocephalic Eye exam: PRESENT: conjunctiva pink, EOMI, PERRLA. ABSENT: scleral icterus Ear exam: PRESENT: normal external ear exam Mouth exam: PRESENT: moist, tongue midline Neck exam: ABSENT: carotid bruit, JVD, lymphadenopathy, thyromegaly Respiratory exam: PRESENT: clear to auscultation rebecca. ABSENT: rales, rhonchi, wheezes Cardiovascular exam: PRESENT: RRR. ABSENT: diastolic murmur, rubs, systolic murmur Pulses: PRESENT: normal dorsalis pedis pul Vascular exam: PRESENT: normal capillary refill GI/Abdominal exam: PRESENT: normal bowel sounds, soft. ABSENT: distended, guarding, mass, organolmegaly, rebound, tenderness Rectal exam: PRESENT: deferred Extremities exam: PRESENT: full ROM. ABSENT: calf tenderness, clubbing, pedal edema Neurological exam: PRESENT: alert, awake, oriented to person, oriented to place, oriented to time, oriented to situation, CN II-XII grossly intact. ABSENT: motor sensory deficit Psychiatric exam: PRESENT: appropriate affect, normal mood. ABSENT: homicidal ideation, suicidal ideation Skin exam: PRESENT: dry, intact, warm. ABSENT: cyanosis, rash Results Laboratory Results: 11/24/19 04:05 11/24/19 04:05 11/23/19 08:30 Ur Calcium 24 Hr 27.0 L 11/17/19 11/17/19 11/17/19 13:25 13:25 13:25 Creatine Kinase 211 H CK-MB (CK-2) 0.43 Troponin I 0.051 NT-Pro-B Natriuret Pep 11/17/19 11/18/19 23:06 05:40 Creatine Kinase 182 H CK-MB (CK-2) Troponin I NT-Pro-B Natriuret Pep 317 H Impressions: Cervical Spine CT 11/17/19 00:00 IMPRESSION: MULTIPLE SCLEROTIC LESIONS IN THE VERTEBRAE CONSISTENT WITH BONY METASTASES. NO ACUTE FINDINGS IN THE CERVICAL SPINE. Head CT 11/17/19 00:00 IMPRESSION: SURGICAL CHANGES IN THE RIGHT FRONTAL LOBE WITH MILD ENCEPH ALOMALACIA. MILD CHRONIC CHANGES OF ATROPHY AND MICROVASCULAR ISCHEMIA. NO ACUTE PROCESS. EVIDENCE OF ACUTE STROKE: NO. Chest/Abdomen CTA 11/17/19 14:00 IMPRESSION: 1. NORMAL CTA OF THE CHEST. NO PULMONARY EMBOLI. 2. CARDIOMEGALY WITH BILATERAL PLEURAL EFFUSIONS AND COMPRESSIVE ATELECTASIS IN THE LUNG BASES. HAZY GROUND-GLASS OPACITIES THROUGHOUT BOTH LUNGS LIKELY REPRESENTS EARLY PULMONARY EDEMA. 3. PERICARDIAL EFFUSION. 4. EXTENSIVE SCLEROTIC BONY METASTASES. Chest X-Ray 11/18/19 06:00 IMPRESSION: Unchanged left retrocardiac opacity associated with air bronchograms. Carotid Doppler Study 11/19/19 00:00 IMPRESSION: NO HEMODYNAMICALLY SIGNIFICANT STENOSIS. Assessment & Plan - Diagnosis (1) Metastatic adenocarcinoma to prostate Is this a current diagnosis for this admission?: Yes Plan: Is looking much better, performed status is improved greatly, would entertain further treatment as an outpatient but would need significant dose reductions if we do. I will place an appointment to see him late next week. - Time Time Spent with patient: 35 or more minutes
[2019-11-25] MEDS: INSULIN REG, HUMAN 100 UNIT/ML 3 ML VIAL (PYX) SUBCUT SCH ×4 (09:53→22:27)
[2019-11-25] MEDS ORDERED: VERAPAMIL HCL 180 MG TABLET.SA PO SCH (10:00)
[2019-11-25] MEDS: PREDNISONE 10 MG TABLET PO SCH (10:04)
[2019-11-25] MEDS: SITAGLIPTIN PHOSPHATE 50 MG TABLET PO SCH (10:04)
[2019-11-25] MEDS: CALCIUM CARBONATE 250 MG/VITAMIN D3 125 UNIT TABLET PO SCH ×3 (10:04→18:15)
[2019-11-25] MEDS: VERAPAMIL HCL 120 MG TABLET.SA PO SCH ×2 (10:04→22:29)
[2019-11-25] MEDS: LEVETIRACETAM 500 MG TABLET PO SCH ×2 (10:04→22:27)
[2019-11-25] MEDS: TAMSULOSIN HCL 0.4 MG CAP.SR.24H PO SCH (18:15)
[2019-11-25 19:21] LABS: ANION GAP 12 (5-19); BLOOD UREA NITROGEN 13 mg/dL (7-20); CARBON DIOXIDE 21 mmol/L (22-30); CHLORIDE 106 mmol/L (98-107); GLUCOSE 143 mg/dL (75-110)
[2019-11-25 19:32] LABS: CALCIUM 6.6 mg/dL (8.4-10.2); POTASSIUM 6.3 mmol/L (3.6-5.0)
--- NOTE | 2019-11-25 19:43 | Progress Note ---
Provider Note Provider Note: CARDIOLOGY PROGRESS NOTE by Dr. Mavis Mandel on 11/25/2019. SUBJECTIVE: The patient denies any chest pain or discomfort. There is no PND orthopnea or shortness of breath. He had a bowel movement today. He denies any nausea vomiting. His p.o. intake is better. There is no arrhythmias seen on the monitor and there is no recurrence of SVT. There is no TIA CVA symptoms. His potassium still elevated at 6.3. We will stop the patient's replacement potassium. PHYSICAL EXAMINATION: The patient appears to be chronically ill. He is in no acute distress. Selected Entries 11/25/19 08:26 Temperature 97.6 F Temperature Axillary Source Pulse Rate 98 Respiratory 18 Rate Blood Pressure 109/72 Blood Pressure 84 Mean BP Location Right Arm BP Position Supine O2 Sat by Pulse 99 Oximetry Oxygen Delivery Room Air Method HEAD: Scar of prior right craniotomy present. Normocephalic. EYES: Pupils are equal round regular reactive to light and accommodation. There is conjunctival pallor. There is no scleral icterus. EARS: Tympanic membranes are intact. External auditory canals are clear. NOSE nose: There is no deviated nasal septum. There is no inflammation nasal mucous membrane. MOUTH: Mucous membranes of mouth are slightly dry. There is no bleeding from the gums. THROAT: There is no redness of the oropharynx. There is no exudates. SKIN: There is no petechia or ecchymosis. There is no skin lesions or skin rashes. 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 Right side of neck is tender neck movements are limited due to pain and muscle spasm. There is no palpable lymphadenopathy. There is no goiter. There is no accessory muscle respiration use. TRACHEA is central. LUNGS: Clear to auscultation percussion. Heart: S1-S2 is heard. There is no S3 gallop. There is no S4 gallop. There is mild mitral regurgitation murmur present. There is no aortic stenosis or aortic regurgitation murmur. There is no S3 gallop. There is no S4 gallop. S1 is of normal intensity. There is no rub. ABDOMEN: Soft nontender. There is no hepatosplenomegaly bowel sounds are well heard. EXTREMITIES: Femorals are well felt. There is no femoral bruits. Leg pulses well felt. There is no pedal edema. There is no DVT or cellulitis. There is no cyanosis or clubbing. 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 And also situation. He has weak upper extremity and lower extremity. No focal deficits though. PSYCHIATRIC: Patient is in spite of his low blood pressures judgment site seem to be intact. He does not appear to be anxious or agitated. The patient's repeat echo shows LV ejection fraction is improved to 40% to 45%. Labs- All tests 24 hr 11/23/19 11/25/19 11/25/19 08:30 08:25 12:36 Sodium Potassium Chloride Carbon Dioxide Anion Gap BUN Creatinine Est GFR ( Amer) Est GFR (MDRD) Non-Af Glucose POC Glucose 105 106 Calcium Ionized Calcium Yola Albumin Urine Creatinine 29.4 Urine Calcium 1.0 Ur Calcium 24 Hr 27.0 L Calcium/Creat Ratio 34 11/25/19 11/25/19 11/25/19 17:03 18:30 20:05 Sodium 139.1 Potassium 6.3 H* Chloride 106 Carbon Dioxide 21 L Anion Gap 12 BUN 13 Creatinine 1.19 Est GFR ( Amer) > 60 Est GFR (MDRD) Non-Af > 60 Glucose 143 H POC Glucose 129 H Calcium 6.6 L* Ionized Calcium Yola Albumin 3.3 L Urine Creatinine Urine Calcium Ur Calcium 24 Hr Calcium/Creat Ratio 11/25/19 11/25/19 20:05 21:41 Sodium Potassium Chloride Carbon Dioxide Anion Gap BUN Creatinine Est GFR ( Amer) Est GFR (MDRD) Non-Af Glucose POC Glucose 114 H Calcium Ionized Calcium Yola 0.96 L Albumin Urine Creatinine Urine Calcium Ur Calcium 24 Hr Calcium/Creat Ratio Cervical Spine CT 11/17/19 00:00 IMPRESSION: MULTIPLE SCLEROTIC LESIONS IN THE VERTEBRAE CONSISTENT WITH BONY METASTASES. NO ACUTE FINDINGS IN THE CERVICAL SPINE. Head CT 11/17/19 00:00 IMPRESSION: SURGICAL CHANGES IN THE RIGHT FRONTAL LOBE WITH MILD ENCEPHALOMALACIA. MILD CHRONIC CHANGES OF ATROPHY AND MICROVASCULAR ISCHEMIA. NO ACUTE PROCESS. EVIDENCE OF ACUTE STROKE: NO. Chest X-Ray 11/17/19 12:54 IMPRESSION: LEFT LOWER LOBE INFILTRATE SUSPICIOUS FOR PNEUMONIA. Chest/Abdomen CTA 11/17/19 14:00 IMPRESSION: 1. NORMAL CTA OF THE CHEST. NO PULMONARY EMBOLI. 2. CARDIOMEGALY WITH BILATERAL PLEURAL EFFUSIONS AND COMPRESSIVE ATELECTASIS IN THE LUNG BASES. HAZY GROUND-GLASS OPACITIES THROUGHOUT BOTH LUNGS LIKELY REPRESENTS EARLY PULMONARY EDEMA. 3. PERICARDIAL EFFUSION. 4. EXTENSIVE SCLEROTIC BONY METASTASES. Chest X-Ray 11/18/19 06:00 IMPRESSION: Unchanged left retrocardiac opacity associated with air bronchograms. Carotid Doppler Study 11/19/19 00:00 IMPRESSION: NO HEMODYNAMICALLY SIGNIFICANT STENOSIS. IMPRESSION/recommendation: 1. Paroxysmal supraventricular tachycardia:: Terminated with 1 dose of adenosine. The patient's vasopressin and esmolol drip has been discontinued yesterday. The patient is now on oral calcium channel jennifer and tolerating it well. He remains in sinus rhythm. We will decrease the patient's verapamil to his 80 mg p.o. every 8 hours. Later we will transition to a long-acting preparation. 2. Torticollis: Possibly secondary to underlying infection causing muscle spasm and pain versus secondary to metastatic cervical spine disease. This is resolved 3 asymptomatic hypotension: The patient was given Cardizem which brought the blood pressure up. Will write parameters for verapamil dosing. This has been discussed with Dr. Haney. 4. Possible sepsis: Continue antibiotics and vasopressin. 5. History of hypertension: At present blood pressures on the low side. 6. 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 7. Possible left lower lobe pneumonia: Continue antibiotics. Continue hydration. 8. Cardiomyopathy. Most likely rate related. The patient and the son-in-law's states there is no prior cardiac issues with the patient. There is no history of congestive heart failure or any atrial arrhythmia. Once the patient's heart rate is controlled we will repeat the echo to see if it is rate related cardiomyopathy. 9. Hypokalemia and hypocalcemia: Replenish potassium and calcium. This is being done. Potassium is now high and still at 6.3. The patient's potassium has been stopped. His blood sugar is still within normal range. We will get a stat potassium level. If still high will institute Kayexalate. Calcium is improved to ionized calcium level of 0.96 which is just mildly reduced. 10. Diabetes mellitus: Continue antidiabetic medication. Continue serial Accu-Cheks. Medications reviewed. After discussion with Dr. Vasquez her medication dosages adjusted new medications given. Medical regimen and management plan discussed with Dr. Haney medical decision making is of high complexity. 40 minutes spent on the patient more than 50% of time spent in direct patient care. Will follow
--- NOTE | 2019-11-25 19:45 | PDOC PROGRESS REPORT ---
Subjective Progress Note for:: 11/24/19 Subjective:: Patient continue to experience some degree of diarrhea. No abdominal pain, nausea, or vomiting. Appetite and P.O intake is poor so far today. Ambulate in room with some degree of unsteadiness in gait and balance. Reason For Visit: SVT Physical Exam Vital Signs: Temp Pulse Resp BP Pulse Ox 97.6 F 109 H 16 84/62 L 99 11/24/19 16:29 11/24/19 16:29 11/24/19 16:29 11/24/19 16:29 11/24/19 16:29 Intake & Output 11/23/19 11/24/19 11/25/19 06:59 06:59 06:59 Intake Total 726 1260 680 Output Total 1450 1275 375 Balance -724 -15 305 Weight 74.1 kg 71.9 kg 71.9 kg General appearance: PRESENT: no acute distress, well-developed, well-nourished Head exam: PRESENT: atraumatic, normocephalic Eye exam: PRESENT: conjunctiva pink. ABSENT: scleral icterus Ear exam: PRESENT: normal external ear exam Mouth exam: PRESENT: moist Respiratory exam: PRESENT: clear to auscultation rebecca, decreased breath sounds - at lung bases Cardiovascular exam: PRESENT: RRR, +S1, +S2. ABSENT: diastolic murmur, rubs, systolic murmur Vascular exam: ABSENT: pallor GI/Abdominal exam: PRESENT: normal bowel sounds, soft. ABSENT: distended, guarding, mass, organolmegaly, rebound, tenderness Extremities exam: ABSENT: pedal edema Neurological exam: PRESENT: alert, awake, oriented to person, oriented to place, oriented to time, oriented to situation, CN II-XII grossly intact. ABSENT: mo tor sensory deficit Psychiatric exam: PRESENT: appropriate affect, normal mood. ABSENT: homicidal ideation, suicidal ideation Skin exam: PRESENT: dry, warm Results Laboratory Results: 11/24/19 04:05 11/24/19 04:05 11/24/19 11/24/19 11/24/19 04:05 04:05 04:05 WBC 11.1 H RBC 2.87 L Hgb 8.0 L Hct 24.6 L MCV 86 MCH 28.0 MCHC 32.7 RDW 21.7 H Plt Count 302 Seg Neutrophils % Not Reportable Sodium 144.6 Potassium 6.3 H* D Chloride 111 H Carbon Dioxide 28 Anion Gap 6 BUN 16 Creatinine 1.08 Est GFR ( Amer) > 60 Glucose 82 Calcium 7.0 L* Ionized Calcium Yola 0.94 L Total Bilirubin 0.6 AST 123 H Alkaline Phosphatase 2402 H Total Protein 5.7 L Albumin 3.0 L 11/17/19 11/17/19 11/17/19 13:25 13:25 13:25 Creatine Kinase 211 H CK-MB (CK-2) 0.43 Troponin I 0.051 NT-Pro-B Natriuret Pep 11/17/19 11/18/19 23:06 05:40 Creatine Kinase 182 H CK-MB (CK-2) Troponin I NT-Pro-B Natriuret Pep 317 H Impressions: Cervical Spine CT 11/17/19 00:00 IMPRESSION: MULTIPLE SCLEROTIC LESIONS IN THE VERTEBRAE CONSISTENT WITH BONY METASTASES. NO ACUTE FINDINGS IN THE CERVICAL SPINE. Head CT 11/17/19 00:00 IMPRESSION: SURGICAL CHANGES IN THE RIGHT FRONTAL LOBE WITH MILD ENCEPHALOMALACIA. MILD CHRONIC CHANGES OF ATROPHY AND MICROVASCULAR ISCHEMIA. NO ACUTE PROCESS. EVIDENCE OF ACUTE STROKE: NO. Chest/Abdomen CTA 11/17/19 14:00 IMPRESSION: 1. NORMAL CTA OF THE CHEST. NO PULMONARY EMBOLI. 2. CARDIOMEGALY WITH BILATERAL PLEURAL EFFUSIONS AND COMPRESSIVE ATELECTASIS IN THE LUNG BASES. HAZY GROUND-GLASS OPACITIES THROUGHOUT BOTH LUNGS LIKELY REPRESENTS EARLY PULMONARY EDEMA. 3. PERICARDIAL EFFUSION. 4. EXTENSIVE SCLEROTIC BONY METASTASES. Chest X-Ray 11/18/19 06:00 IMPRESSION: Unchanged left retrocardiac opacity associated with air bronchograms. Carotid Doppler Study 11/19/19 00:00 IMPRESSION: NO HEMODYNAMICALLY SIGNIFICANT STENOSIS. Assessment & Plan - Diagnosis (1) Paroxysmal SVT (supraventricular tachycardia) Is this a current diagnosis for this admission?: Yes Plan: Continue of current medication management. Cardiology input noted. I will discuss with smooth and burr worker composites alternative to CCB for rate control in view of associated low blood pressure and ambulatory limitation at this time. We will hold this evening dose of Verapamil and administer 1gm of calcium gluconate. (2) Acute hyperkalemia Is this a current diagnosis for this admission?: Yes Plan: Probably due to over current with oral replacement therapy. Follow up on BMP. (3) Diabetes mellitus type 2 in nonobese Is this a current diagnosis for this admission?: Yes Plan: Continue of current medication management. (4) HTN (hypertension) Qualifiers: Hypertension type: essential hypertension Qualified Code(s): I10 - Essential (primary) hypertension Is this a current diagnosis for this admission?: Yes Plan: Continue of current medication management. (5) HLD (hyperlipidemia) Qualifiers: Hyperlipidemia type: pure hypertriglyceridemia Qualified Code(s): E78.1 - Pure hyperglyceridemia Is this a current diagnosis for this admission?: Yes Plan: Continue of current medication management. (6) Malignant neoplasm of prostate metastatic to bone Is this a current diagnosis for this admission?: Yes Plan: Continue of current medication management. Medical oncology contribution noted. (7) Osteoarthritis involving multiple joints on both sides of body Is this a current diagnosis for this admission?: Yes Plan: Continue of current medication management. Obtain PT evaluation for ambulatory safety evaluation and rehabilitation. - Time Time Spent with patient: 35 or more minutes Level of Care: IMCU Medications reviewed and adjusted accordingly: Yes Anticipated discharge: Home with Homehealth Within: Other - Inpatient Certification Based on my medical assessment, after consideration of the patient's comorbidities, presenting symptoms, or acuity I expect that the services needed warrant INPATIENT care.: Yes I certify that my determination is in accordance with my understanding of Medicare's requirements for reasonable and necessary INPATIENT services [42 CFR 412.3e].: Yes Medical Necessity: Significant Comorbidiites Make Outpatient Treatment Too Risky, Need Close Monitoring Due to Risk of Patient Decompensation, Need For Continuous Telemetry Monitoring, Risk of Complication if Not Cared For in [facility]pi [facility], Risk of Diagnosis Which Will Require Inpatient Eval/Care/Monitoring Post Hospital Care: D/C Bell Attendant Documentation - Plan Summary Plan Summary: See attending physician orders for details about care plan.
--- NOTE | 2019-11-25 20:09 | PDOC PROGRESS REPORT ---
Subjective Progress Note for:: 11/25/19 Subjective:: No abdominal pain, nausea, or vomiting.Bowel movement so far x 4 today. Appetite and P.O intake is fair today. No chest pain. Breathing is okay. Participated in physical rehabilitation session today and ambulate in room with walker assistance. Reason For Visit: SVT Physical Exam Vital Signs: Temp Pulse Resp BP Pulse Ox 98.3 F 97 16 102/69 98 11/25/19 17:03 11/25/19 19:00 11/25/19 17:03 11/25/19 17:03 11/25/19 17:03 Intake & Output 11/24/19 11/25/19 11/26/19 06:59 06:59 06:59 Intake Total 7539 000 0845 Output Total 1275 675 Balance -15 5 1220 Weight 71.9 kg 70.1 kg Physical Exam: General appearance: PRESENT: no acute distress, well-developed, well-nourished Head exam: PRESENT: atraumatic, normocephalic Eye exam: PRESENT: conjunctiva pink. ABSENT: pallor, scleral icterus Ear exam: PRESENT: normal external ear exam Mouth exam: PRESENT: moist Respiratory exam: PRESENT: clear to auscultation rebecca, decreased breath sounds - at lung bases Cardiovascular exam: PRESENT: RRR, +S1, +S2. ABSENT: diastolic murmur, rubs, systolic murmur GI/Abdominal exam: PRESENT: normal bowel sounds, soft. ABSENT: distended, guarding, mass, organomegaly, rebound, tenderness Extremities exam: ABSENT: pedal edema Neurological exam: PRESENT: alert, awake, oriented to person, oriented to place, oriented to time, oriented to situation, CN II-XII grossly intact. ABSENT: motor sensory deficit Psychiatric exam: PRESENT: appropriate affect, normal mood. ABSENT: homicidal ideation, suicidal ideation Skin exam: PRESENT: dry, warm Results Laboratory Results: 11/24/19 04:05 11/25/19 18:30 11/23/19 11/25/19 08:30 18:30 Sodium 139.1 Potassium 6.3 H* Chloride 106 Carbon Dioxide 21 L Anion Gap 12 BUN 13 Creatinine 1.19 Est GFR ( Amer) > 60 Glucose 143 H Calcium 6.6 L* Ur Calcium 24 Hr 27.0 L 11/17/19 11/17/19 11/17/19 13:25 13:25 13:25 Creatine Kinase 211 H CK-MB (CK-2) 0.43 Troponin I 0.051 NT-Pro-B Natriuret Pep 11/17/19 11/18/19 23:06 05:40 Creatine Kinase 182 H CK-MB (CK-2) Troponin I NT-Pro-B Natriuret Pep 317 H Impressions: Cervical Spine CT 11/17/19 00:00 IMPRESSION: MULTIPLE SCLEROTIC LESIONS IN THE VERTEBRAE CONSISTENT WITH BONY METASTASES. NO ACUTE FINDINGS IN THE CERVICAL SPINE. Head CT 11/17/19 00:00 IMPRESSION: SURGICAL CHANGES IN THE RIGHT FRONTAL LOBE WITH MILD ENCEPHALOMALACIA. MILD CHRONIC CHANGES OF ATROPHY AND MICROVASCULAR ISCHEMIA. NO ACUTE PROCESS. EVIDENCE OF ACUTE STROKE: NO. Chest/Abdomen CTA 11/17/19 14:00 IMPRESSION: 1. NORMAL CTA OF THE CHEST. NO PULMONARY EMBOLI. 2. CARDIOMEGALY WITH BILATERAL PLEURAL EFFUSIONS AND COMPRESSIVE ATELECTASIS IN THE LUNG BASES. HAZY GROUND-GLASS OPACITIES THROUGHOUT BOTH LUNGS LIKELY REPRESENTS EARLY PULMONARY EDEMA. 3. PERICARDIAL EFFUSION. 4. EXTENSIVE SCLEROTIC BONY METASTASES. Chest X-Ray 11/18/19 06:00 IMPRESSION: Unchanged left retrocardiac opacity associated with air bronchograms. Carotid Doppler Study 11/19/19 00:00 IMPRESSION: NO HEMODYNAMICALLY SIGNIFICANT STENOSIS. Assessment & Plan - Diagnosis (1) Paroxysmal SVT (supraventricular tachycardia) Is this a current diagnosis for this admission?: Yes (2) Acute hyperkalemia Is this a current diagnosis for this admission?: Yes (3) Diabetes mellitus type 2 in nonobese Is this a current diagnosis for this admission?: Yes (4) HTN (hypertension) Qualifiers: Hypertension type: essential hypertension Qualified Code(s): I10 - Essential (primary) hypertension Is this a current diagnosis for this admission?: Yes (5) HLD (hyperlipidemia) Qualifiers: Hyperlipidemia type: pure hypertriglyceridemia Qualified Code(s): E78.1 - Pure hyperglyceridemia Is this a current diagnosis for this admission?: Yes (6) Malignant neoplasm of prostate metastatic to bone Is this a current diagnosis for this admission?: Yes (7) Osteoarthritis involving multiple joints on both sides of body Is this a current diagnosis for this admission?: Yes (8) Drug-induced hyperkalemia Is this a current diagnosis for this admission?: Yes Plan: Patient remain asymptomatic presently. Due to his ongoing diarrhea, I will hold off any medication management at this time. repeat BMP in AM. (9) Hypocalcemia Is this a current diagnosis for this admission?: Yes Plan: Obtain ionized calcium level and serum albumin level 5to assess extent of replacement need. Continue current medication management. - Time Time Spent with patient: 35 or more minutes Level of Care: IMCU Medications reviewed and adjusted accordingly: Yes Anticipated discharge: Home with Homehealth Within: Other - Inpatient Certification Based on my medical assessment, after consideration of the patient's comorbidities, presenting symptoms, or acuity I expect that the services needed warrant INPATIENT care.: Yes I certify that my determination is in accordance with my understanding of Medicare's requirements for reasonable and necessary INPATIENT services [42 CFR 412.3e].: Yes Medical Necessity: Significant Comorbidiites Make Outpatient Treatment Too Risky, Need Close Monitoring Due to Risk of Patient Decompensation, Need For Continuous Telemetry Monitoring, Risk of Complication if Not Cared For in Hospital, Risk of Diagnosis Which Will Require Inpatient Eval/Care/Monitoring Post Hospital Care: D/C Standard Machine Stitcher Documentation - Plan Summary Plan Summary: Continue current medication management. Follow up on pending labs.
[2019-11-25] MEDS: ATORVASTATIN CALCIUM 10 MG TABLET PO SCH (22:27)
[2019-11-25] MEDS ORDERED: CALCIUM GLUCONATE 2,222 MG in DEXTROSE 5%-WATER 100 ML IV ONE (22:30)
--- NOTE | 2019-11-26 00:40 | XCELERA REPORT ---
[address] [address] Transthoracic Echocardiogram Report Name: MARIAA ALCANTAR JR Age: 69 yrs Gender: Male : 1950 Patient Status: Inpatient Patient Location: [address] [place] [address] Study Date: 11/25/2019 03:43 PM Height: 72 in Weight: 154 lb BSA: 1.9 m2 Procedure: A limited two-dimensional transthoracic echocardiogram was performed (2D). Study Quality: Good. Reason For Study: Follow Up of Cardiomyopathy( for WM EF) History: Follow Up of Cardiomyopathy( for WM EF). Ordering Physician: MAVIS HEARD Performed By: Jose Francisco Ivy Interpretation Summary The left ventricle is mildly dilated. There is moderate Global Hypkinesis and LVEF has now improved to 45%.No LV Thrombus seen. MMode/2D Measurements & Calculations RVDd: 2.9 cm LVIDd: 5.3 cm FS: 22.6 % Ao root diam: 3.9 cm IVSd: 0.79 cm LVIDs: 4.1 cm EDV(Teich): 133.4 ml Ao root area: 12.0 cm2 LVPWd: 0.99 cm ESV(Teich): 73.2 ml LA dimension: 2.9 cm EF(Teich): 45.1 % Left Ventricle The left ventricle is mildly dilated. There is normal left ventricular wall thickness. There is moderate Global Hypkinesis and LVEF has now improved to 45%.No LV Thrombus seen. : MAVIS HEARD Lakshmi
[2019-11-26] MEDS: HEPARIN SOD (PORCINE) 5,000 UNIT/ML 1 ML VIAL SUBCUT SCH ×3 (02:24→18:05)
[2019-11-26 06:08] LABS: HEMATOCRIT 22.3 % (37.9-51.0); MEAN CORPUSCULAR HEMOGLOBIN 28.3 pg (27.0-33.4); MEAN CORPUSCULAR VOLUME 86 fl (80-97); PLATELET COUNT 247 10^3/uL (150-450); RED BLOOD COUNT 2.61 10^6/uL (4.35-5.55); RED CELL DISTRIBUTION WIDTH 22.1 % (11.5-14.0); WHITE BLOOD COUNT 10.2 10^3/uL (4.0-10.5)
[2019-11-26 06:10] LABS: HEMOGLOBIN 7.4 g/dL (13.5-17.0)
[2019-11-26 06:12] LABS: ABSOLUTE LYMPHOCYTES# (MANUAL) 1.2 10^3/uL (0.5-4.7); ABSOLUTE MONOCYTES # (MANUAL) 0.6 10^3/uL (0.1-1.4); BAND NEUTROPHILS % (MANUAL) 5 % (3-5); BASOPHILS % (MANUAL) 1 % (0-2); EOSINOPHILS % (MANUAL) 0 % (0-6); LYMPHOCYTES % (MANUAL) 12 % (13-45); MONOCYTES % (MANUAL) 6 % (3-13); SEGMENTED NEUTROPHILS % (MAN) 76 % (42-78); TOTAL CELLS COUNTED 100
[2019-11-26 06:15] LABS: ANION GAP 7 (5-19); ASPARTATE AMINO TRANSFERASE 72 U/L (17-59); BILIRUBIN,DIRECT 0.2 mg/dL (0.0-0.4); BILIRUBIN,TOTAL 0.5 mg/dL (0.2-1.3); BLOOD UREA NITROGEN 10 mg/dL (7-20); CARBON DIOXIDE 22 mmol/L (22-30); CHLORIDE 111 mmol/L (98-107); GLUCOSE 72 mg/dL (75-110); NEONATAL BILIRUBIN RESULT 0.3 mg/dL (0.1-1.1); POTASSIUM 5.4 mmol/L (3.6-5.0); TOTAL PROTEIN 5.7 g/dL (6.3-8.2)
[2019-11-26 06:17] LABS: ANISOCYTOSIS 3+; OVALOCYTES SLIGHT; PLATELET COMMENT ADEQUATE; POIKILOCYTOSIS 1+; POLYCHROMASIA SLIGHT; TEAR DROP CELLS SLIGHT; TOXIC GRANULATION 1+; TOXIC VACUOLATION PRESENT
[2019-11-26 06:24] LABS: ALKALINE PHOSPHATASE 2331 U/L (38-126)
[2019-11-26 06:25] LABS: CALCIUM 6.8 mg/dL (8.4-10.2)
--- NOTE | 2019-11-26 08:10 | PDOC PROGRESS REPORT ---
Subjective Progress Note for:: 11/26/19 Subjective:: Patient continues to improve Reason For Visit: SVT Physical Exam Vital Signs: Temp Pulse Resp BP Pulse Ox 98.7 F 94 18 110/58 L 99 11/25/19 23:39 11/26/19 02:00 11/25/19 19:49 11/25/19 23:39 11/25/19 23:39 Intake & Output 11/25/19 11/26/19 11/27/19 06:59 06:59 06:59 Intake Total 680 1220 Output Total 675 400 Balance 5 820 Weight 70.1 kg 67.2 kg General appearance: PRESENT: no acute distress, well-developed, well-nourished Head exam: PRESENT: atraumatic, normocephalic Eye exam: PRESENT: conjunctiva pink, EOMI, PERRLA. ABSENT: scleral icterus Ear exam: PRESENT: normal external ear exam Mouth exam: PRESENT: moist, tongue midline Neck exam: ABSENT: carotid bruit, JVD, lymphadenopathy, thyromegaly Respiratory exam: PRESENT: clear to auscultation rebecca. ABSENT: rales, rhonchi, wheezes Cardiovascular exam: PRESENT: RRR. ABSENT: diastolic murmur, rubs, systolic murmur Pulses: PRESENT: normal dorsalis pedis pul Vascular exam: PRESENT: normal capillary refill GI/Abdominal exam: PRESENT: normal bowel sounds, soft. ABSENT: distended, guarding, mass, organolmegaly, rebound, tenderness Rectal exam: PRESENT: deferred Extremities exam: PRESENT: full ROM. ABSENT: calf tenderness, clubbing, pedal e kavin Neurological exam: PRESENT: alert, awake, oriented to person, oriented to place, oriented to time, oriented to situation, CN II-XII grossly intact. ABSENT: motor sensory deficit Psychiatric exam: PRESENT: appropriate affect, normal mood. ABSENT: homicidal ideation, suicidal ideation Skin exam: PRESENT: dry, intact, warm. ABSENT: cyanosis, rash Results Laboratory Results: 11/26/19 05:30 11/26/19 05:30 11/25/19 11/25/19 11/25/19 18:30 20:05 20:05 WBC RBC Hgb Hct MCV MCH MCHC RDW Plt Count Seg Neutrophils % Sodium 139.1 Potassium 6.3 H* Chloride 106 Carbon Dioxide 21 L Anion Gap 12 BUN 13 Creatinine 1.19 Est GFR ( Amer) > 60 Glucose 143 H Calcium 6.6 L* Ionized Calcium Yola 0.96 L Total Bilirubin AST Alkaline Phosphatase Total Protein Albumin 3.3 L 11/25/19 11/26/19 11/26/19 23:30 05:30 05:30 WBC 10.2 RBC 2.61 L Hgb 7.4 L Hct 22.3 L MCV 86 MCH 28.3 MCHC 33.0 RDW 22.1 H Plt Count 247 Seg Neutrophils % Not Reportable Sodium 139.6 Potassium 5.7 H 5.4 H Chloride 111 H Carbon Dioxide 22 Anion Gap 7 BUN 10 Creatinine 1.18 Est GFR ( Amer) > 60 Glucose 72 L Calcium 6.8 L* Ionized Calcium Yola Total Bilirubin 0.5 AST 72 H Alkaline Phosphatase 2331 H Total Protein 5.7 L Albumin 3.0 L 11/17/19 11/17/19 11/17/19 13:25 13:25 13:25 Creatine Kinase 211 H CK-MB (CK-2) 0.43 Troponin I 0.051 NT-Pro-B Natriuret Pep 11/17/19 11/18/19 23:06 05:40 Creatine Kinase 182 H CK-MB (CK-2) Troponin I NT-Pro-B Natriuret Pep 317 H Impressions: Cervical Spine CT 11/17/19 00:00 IMPRESSION: MULTIPLE SCLEROTIC LESIONS IN THE VERTEBRAE CONSISTENT WITH BONY METASTASES. NO ACUTE FINDINGS IN THE CERVICAL SPINE. Head CT 11/17/19 00:00 IMPRESSION: SURGICAL CHANGES IN THE RIGHT FRONTAL LOBE WITH MILD ENCEPHALOMALACIA. MILD CHRONIC CHANGES OF ATROPHY AND MICROVASCULAR ISCHEMIA. NO ACUTE PROCESS. EVIDENCE OF ACUTE STROKE: NO. Chest/Abdomen CTA 11/17/19 14:00 IMPRESSION: 1. NORMAL CTA OF THE CHEST. NO PULMONARY EMBOLI. 2. CARDIOMEGALY WITH BILATERAL PLEURAL EFFUSIONS AND COMPRESSIVE ATELECTASIS IN THE LUNG BASES. HAZY GROUND-GLASS OPACITIES THROUGHOUT BOTH LUNGS LIKELY REPRESENTS EARLY PULMONARY EDEMA. 3. PERICARDIAL EFFUSION. 4. EXTENSIVE SCLEROTIC BONY METASTASES. Chest X-Ray 11/18/19 06:00 IMPRESSION: Unchanged left retrocardiac opacity associated with air bronchograms. Carotid Doppler Study 11/19/19 00:00 IMPRESSION: NO HEMODYNAMICALLY SIGNIFICANT STENOSIS. Assessment & Plan - Diagnosis (1) Metastatic adenocarcinoma to prostate Is this a current diagnosis for this admission?: Yes Plan: Follow-up in office in about 1 week, hopeful discharge soon. We will sign off, will see patient next in office - Time Time Spent with patient: 15-24 minutes
[2019-11-26] MEDS: INSULIN REG, HUMAN 100 UNIT/ML 3 ML VIAL (PYX) SUBCUT SCH ×4 (09:11→22:01)
[2019-11-26] MEDS: CALCIUM CARBONATE 250 MG/VITAMIN D3 125 UNIT TABLET PO SCH ×3 (09:49→18:05)
[2019-11-26] MEDS: PREDNISONE 10 MG TABLET PO SCH (09:49)
[2019-11-26] MEDS: VERAPAMIL HCL 120 MG TABLET.SA PO SCH ×2 (09:49→22:43)
[2019-11-26] MEDS: LEVETIRACETAM 500 MG TABLET PO SCH ×2 (09:49→22:42)
[2019-11-26] MEDS: FENTANYL 25 MCG/HR PATCH.TD72 TOP SCH (09:49)
[2019-11-26] MEDS: SITAGLIPTIN PHOSPHATE 50 MG TABLET PO SCH (09:49)
[2019-11-26] MEDS: TAMSULOSIN HCL 0.4 MG CAP.SR.24H PO SCH (18:05)
--- NOTE | 2019-11-26 18:59 | PDOC PROGRESS REPORT ---
Subjective Progress Note for:: 11/26/19 Subjective:: No chest pain or difficulty with breathing. No abdominal pain, nausea, or vomiting. Appetite and P.O intake improving. Patient in the process of been transfused 2 units PRBC due to significant drop in his hemoglobin. Reason For Visit: SVT Physical Exam Vital Signs: Temp Pulse Resp BP Pulse Ox 98.9 F 88 14 108/59 L 99 11/26/19 14:31 11/26/19 14:31 11/26/19 14:31 11/26/19 14:31 11/26/19 14:31 Intake & Output 11/25/19 11/26/19 11/27/19 06:59 06:59 06:59 Intake Total 680 1220 638 Output Total 675 400 500 Balance 5 820 138 Weight 70.1 kg 67.2 kg Physical Exam: General appearance: PRESENT: no acute distress, well-developed, well-nourished Head exam: PRESENT: atraumatic, normocephalic Eye exam: PRESENT: conjunctiva pink. ABSENT: pallor, scleral icterus Ear exam: PRESENT: normal external ear exam Mouth exam: PRESENT: moist Respiratory exam: PRESENT: clear to auscultation rebecca, decreased breath sounds - at lung bases Cardiovascular exam: PRESENT: RRR, +S1, +S2. ABSENT: diastolic murmur, rubs, systolic murmur GI/Abdominal exam: PRESENT: normal bowel sounds, soft. ABSENT: distended, guarding, mass, organomegaly, rebound, tenderness Extremities exam: ABSENT: pedal edema Neurological exam: PRESENT: alert, awake, oriented to person, oriented to place, oriented to time, oriented to situation, CN II-XII grossly intact. ABSENT: motor sensory deficit Psychiatric exam: PRESENT: appropriate affect, normal mood. ABSENT: homicidal ideation, suicidal ideation Skin exam: PRESENT: dry, warm Results Laboratory Results: 11/26/19 05:30 11/26/19 05:30 11/25/19 11/25/19 11/25/19 18:30 20:05 20:05 WBC RBC Hgb Hct MCV MCH MCHC RDW Plt Count Seg Neutrophils % Sodium 139.1 Potassium 6.3 H* Chloride 106 Carbon Dioxide 21 L Anion Gap 12 BUN 13 Creatinine 1.19 Est GFR ( Amer) > 60 Glucose 143 H Calcium 6.6 L* Ionized Calcium Yola 0.96 L Total Bilirubin AST Alkaline Phosphatase Total Protein Albumin 3.3 L Blood Type Antibody Screen 11/25/19 11/26/19 11/26/19 23:30 05:30 05:30 WBC 10.2 RBC 2.61 L Hgb 7.4 L Hct 22.3 L MCV 86 MCH 28.3 MCHC 33.0 RDW 22.1 H Plt Count 247 Seg Neutrophils % Not Reportable Sodium 139.6 Potassium 5.7 H 5.4 H Chloride 111 H Carbon Dioxide 22 Anion Gap 7 BUN 10 Creatinine 1.18 Est GFR ( Amer) > 60 Glucose 72 L Calcium 6.8 L* Ionized Calcium Yola Total Bilirubin 0.5 AST 72 H Alkaline Phosphatase 2331 H Total Protein 5.7 L Albumin 3.0 L Blood Type Antibody Screen 11/26/19 08:08 WBC RBC Hgb Hct MCV MCH MCHC RDW Plt Count Seg Neutrophils % Sodium Potassium Chloride Carbon Dioxide Anion Gap BUN Creatinine Est GFR ( Amer) Glucose Calcium Ionized Calcium Yola Total Bilirubin AST Alkaline Phosphatase Total Protein Albumin Blood Type O POSITIVE Antibody Screen NEGATIVE 11/17/19 11/17/19 11/17/19 13:25 13:25 13:25 Creatine Kinase 211 H CK-MB (CK-2) 0.43 Troponin I 0.051 NT-Pro-B Natriuret Pep 11/17/19 11/18/19 23:06 05:40 Creatine Kinase 182 H CK-MB (CK-2) Troponin I NT-Pro-B Natriuret Pep 317 H Impressions: Cervical Spine CT 11/17/19 00:00 IMPRESSION: MULTIPLE SCLEROTIC LESIONS IN THE VERTEBRAE CONSISTENT WITH BONY METASTASES. NO ACUTE FINDINGS IN THE CERVICAL SPINE. Head CT 11/17/19 00:00 IMPRESSION: SURGICAL CHANGES IN THE RIGHT FRONTAL LOBE WITH MILD ENCEPHALOMALACIA. MILD CHRONIC CHANGES OF ATROPHY AND MICROVASCULAR ISCHEMIA. NO ACUTE PROCESS. EVIDENCE OF ACUTE STROKE: NO. Chest/Abdomen CTA 11/17/19 14:00 IMPRESSION: 1. NORMAL CTA OF THE CHEST. NO PULMONARY EMBOLI. 2. CARDIOMEGALY WITH BILATERAL PLEURAL EFFUSIONS AND COMPRESSIVE ATELECTASIS IN THE LUNG BASES. HAZY GROUND-GLASS OPACITIES THROUGHOUT BOTH LUNGS LIKELY REPRESENTS EARLY PULMONARY EDEMA. 3. PERICARDIAL EFFUSION. 4. EXTENSIVE SCLEROTIC BONY METASTASES. Chest X-Ray 11/18/19 06:00 IMPRESSION: Unchanged left retrocardiac opacity associated with air bronchograms. Carotid Doppler Study 11/19/19 00:00 IMPRESSION: NO HEMODYNAMICALLY SIGNIFICANT STENOSIS. Assessment & Plan - Diagnosis (1) Paroxysmal SVT (supraventricular tachycardia) Is this a current diagnosis for this admission?: Yes (2) Acute hyperkalemia Is this a current diagnosis for this admission?: Yes (3) Diabetes mellitus type 2 in nonobese Is this a current diagnosis for this admission?: Yes (4) HTN (hypertension) Qualifiers: Hypertension type: essential hypertension Qualified Code(s): I10 - Essential (primary) hypertension Is this a current diagnosis for this admission?: Yes (5) HLD (hyperlipidemia) Qualifiers: Hyperlipidemia type: pure hypertriglyceridemia Qualified Code(s): E78.1 - Pure hyperglyceridemia Is this a current diagnosis for this admission?: Yes (6) Malignant neoplasm of prostate metastatic to bone Is this a current diagnosis for this admission?: Yes (7) Osteoarthritis involving multiple joints on both sides of body Is this a current diagnosis for this admission?: Yes (8) Drug-induced hyperkalemia Is this a current diagnosis for this admission?: Yes (9) Hypocalcemia Is this a current diagnosis for this admission?: Yes - Time Time Spent with patient: 25-34 minutes Level of Care: IMCU Medications reviewed and adjusted accordingly: Yes Anticipated discharge: Home with Homehealth Within: Other - Inpatient Certification Based on my medical assessment, after consideration of the patient's comorbidities, presenting symptoms, or acuity I expect that the services needed warrant INPATIENT care.: Yes I certify that my determination is in accordance with my understanding of Medicare's requirements for reasonable and necessary INPATIENT services [42 CFR 412.3e].: Yes Medical Necessity: Significant Comorbidiites Make Outpatient Treatment Too Risky, Need Close Monitoring Due to Risk of Patient Decompensation, Need For Continuous Telemetry Monitoring, Risk of Complication if Not Cared For in Hospital, Risk of Diagnosis Which Will Require Inpatient Eval/Care/Monitoring Post Hospital Care: D/C 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 Obtain post transfusion CBC. Possible d/c home tomorrow was discussed with patient during this bedside visit.
--- NOTE | 2019-11-26 19:07 | Progress Note ---
Provider Note Provider Note: CARDIOLOGY PROGRESS NOTE by Dr. Mavis Starkey on 11/26/2019. OBJECTIVE: Patient appears to be slightly confused. But denies any chest pain or discomfort. The patient does not appear to be short of breath. There is no recurrence of SVT. There is no ventricular arrhythmia seen on the monitor. There is no TIA CVA symptoms. The patient denies any cough or sputum production. There is no PND orthopnea. There is no leg edema. PHYSICAL EXAMINATION: The patient appears to be chronically ill. In no acute distress. Selected Entries 11/26/19 16:55 Temperature 97.7 F Temperature Axillary Source Pulse Rate 90 Respiratory 16 Rate Blood Pressure 105/75 Blood Pressure 85 Mean BP Location Right Arm BP Position Supine O2 Sat by Pulse 100 Oximetry Oxygen Delivery Room Air Method HEAD: Scar of prior right craniotomy present. Normocephalic. EYES: Pupils are equal round regular reactive to light and accommodation. There is conjunctival pallor. There is no scleral icterus. EARS: Tympanic membranes are intact. External auditory canals are clear. NOSE nose: There is no deviated nasal septum. There is no inflammation nasal mucous membrane. MOUTH: Mucous membranes of mouth are slightly dry. There is no bleeding from the gums. THROAT: There is no redness of the oropharynx. There is no exudates. SKIN: There is no petechia or ecchymosis. There is no skin lesions or skin rashes. 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 Right side of neck is tender neck movements are limited due to pain and muscle spasm. There is no palpable lymphadenopathy. There is no goiter. There is no accessory muscle respiration use. TRACHEA is central. LUNGS: Clear to auscultation percussion. Heart: S1-S2 is heard. There is no S3 gallop. There is no S4 gallop. There is mild mitral regurgitation murmur present. There is no aortic stenosis or aortic regurgitation murmur. There is no S3 gallop. There is no S4 gallop. S1 is of normal intensity. There is no rub. ABDOMEN: Soft nontender. There is no hepatosplenomegaly bowel sounds are well heard. EXTREMITIES: Femorals are well felt. There is no femoral bruits. Leg pulses well felt. There is no pedal edema. There is no DVT or cellulitis. There is no cyanosis or clubbing. EXTENDED INSURANCE CLERK: The patient is conscious awake alert oriented to place person and time. And also situation. He has weak upper extremity and lower extremity. No focal deficits though. PSYCHIATRIC: Patient is in spite of his low blood pressures judgment site seem to be intact. He does not appear to be anxious or agitated. Labs- All tests 24 hr 11/25/19 11/25/19 11/25/19 18:30 20:05 20:05 WBC RBC Hgb Hct MCV MCH MCHC RDW Plt Count Lymph % (Auto) [place] % (Auto) Eos % (Auto) Baso % (Auto) Absolute Neuts (auto) Absolute Lymphs (auto) Absolute Monos (auto) Absolute Eos (auto) Absolute Basos (auto) Total Counted Seg Neutrophils % Seg Neuts % (Manual) Band Neutrophils % Lymphocytes % (Manual) Monocytes % (Manual) Eosinophils % (Manual) Basophils % (Manual) Abs Neuts (Manual) Abs Lymphs (Manual) Abs Monocytes (Manual) Absolute Eos (Manual) Abs Basophils (Manual) Toxic Granulation Toxic Vacuolation Platelet Comment Polychromasia Poikilocytosis Anisocytosis Tear Drop Cells Ovalocytes Sodium 139.1 Potassium 6.3 H* Chloride 106 Carbon Dioxide 21 L Anion Gap 12 BUN 13 Creatinine 1.19 Est GFR ( Amer) > 60 Est GFR (MDRD) Non-Af > 60 Glucose 143 H POC Glucose Calcium 6.6 L* Ionized Calcium Yola 0.96 L Total Bilirubin Direct Bilirubin Neonat Total Bilirubin Neonat Direct Bilirubin Neonat Indirect Bili AST ALT Alkaline Phosphatase Total Protein Albumin 3.3 L Blood Type Antibody Screen Crossmatch 11/25/19 11/25/19 11/26/19 21:41 23:30 05:30 WBC 10.2 RBC 2.61 L Hgb 7.4 L Hct 22.3 L MCV 86 MCH 28.3 MCHC 33.0 RDW 22.1 H Plt Count 247 Lymph % (Auto) Not Reportable [place] % (Auto) Not Reportable Eos % (Auto) Not Reportable Baso % (Auto) Not Reportable Absolute Neuts (auto) Not Reportable Absolute Lymphs (auto) Not Reportable Absolute Monos (auto) Not Reportable Absolute Eos (auto) Not Reportable Absolute Basos (auto) Not Reportable Total Counted 100 Seg Neutrophils % Not Reportable Seg Neuts % (Manual) 76 Band Neutrophils % 5 Lymphocytes % (Manual) 12 L Monocytes % (Manual) 6 Eosinophils % (Manual) 0 Basophils % (Manual) 1 Abs Neuts (Manual) 8.3 H Abs Lymphs (Manual) 1.2 Abs Monocytes (Manual) 0.6 Absolute Eos (Manual) 0.0 Abs Basophils (Manual) 0.1 Toxic Granulation 1+ Toxic Vacuolation PRESENT Platelet Comment ADEQUATE Polychromasia SLIGHT Poikilocytosis 1+ Anisocytosis 3+ Tear Drop Cells SLIGHT Ovalocytes SLIGHT Sodium Potassium 5.7 H Chloride Carbon Dioxide Anion Gap BUN Creatinine Est GFR ( Amer) Est GFR (MDRD) Non-Af Glucose POC Glucose 114 H Calcium Ionized Calcium Yola Total Bilirubin Direct Bilirubin Neonat Total Bilirubin Neonat Direct Bilirubin Neonat Indirect Bili AST ALT Alkaline Phosphatase Total Protein Albumin Blood Type Antibody Screen Crossmatch 11/26/19 11/26/19 11/26/19 05:30 08:01 08:08 WBC RBC Hgb Hct MCV MCH MCHC RDW Plt Count Lymph % (Auto) [place] % (Auto) Eos % (Auto) Baso % (Auto) Absolute Neuts (auto) Absolute Lymphs (auto) Absolute Monos (auto) Absolute Eos (auto) Absolute Basos (auto) Total Counted Seg Neutrophils % Seg Neuts % (Manual) Band Neutrophils % Lymphocytes % (Manual) Monocytes % (Manual) Eosinophils % (Manual) Basophils % (Manual) Abs Neuts (Manual) Abs Lymphs (Manual) Abs Monocytes (Manual) Absolute Eos (Manual) Abs Basophils (Manual) Toxic Granulation Toxic Vacuolation Platelet Comment Polychromasia Poikilocytosis Anisocytosis Tear Drop Cells Ovalocytes Sodium 139.6 Potassium 5.4 H Chloride 111 H Carbon Dioxide 22 Anion Gap 7 BUN 10 Creatinine 1.18 Est GFR ( Amer) > 60 Est GFR (MDRD) Non-Af > 60 Glucose 72 L POC Glucose 78 Calcium 6.8 L* Ionized Calcium Yola Total Bilirubin 0.5 Direct Bilirubin 0.2 Neonat Total Bilirubin 0.3 Neonat Direct Bilirubin 0.0 Neonat Indirect Bili 0.3 AST 72 H ALT 19 Alkaline Phosphatase 2331 H Total Protein 5.7 L Albumin 3.0 L Blood Type O POSITIVE Antibody Screen NEGATIVE Crossmatch See Detail 11/26/19 11/26/19 11:54 16:55 WBC RBC Hgb Hct MCV MCH MCHC RDW Plt Count Lymph % (Auto) [place] % (Auto) Eos % (Auto) Baso % (Auto) Absolute Neuts (auto) Absolute Lymphs (auto) Absolute Monos (auto) Absolute Eos (auto) Absolute Basos (auto) Total Counted Seg Neutrophils % Seg Neuts % (Manual) Band Neutrophils % Lymphocytes % (Manual) Monocytes % (Manual) Eosinophils % (Manual) Basophils % (Manual) Abs Neuts (Manual) Abs Lymphs (Manual) Abs Monocytes (Manual) Absolute Eos (Manual) Abs Basophils (Manual) Toxic Granulation Toxic Vacuolation Platelet Comment Polychromasia Poikilocytosis Anisocytosis Tear Drop Cells Ovalocytes Sodium Potassium Chloride Carbon Dioxide Anion Gap BUN Creatinine Est GFR ( Amer) Est GFR (MDRD) Non-Af Glucose POC Glucose 133 H 123 H Calcium Ionized Calcium Yola Total Bilirubin Direct Bilirubin Neonat Total Bilirubin Neonat Direct Bilirubin Neonat Indirect Bili AST ALT Alkaline Phosphatase Total Protein Albumin Blood Type Antibody Screen Crossmatch Cervical Spine CT 11/17/19 00:00 IMPRESSION: MULTIPLE SCLEROTIC LESIONS IN THE VERTEBRAE CONSISTENT WITH BONY METASTASES. NO ACUTE FINDINGS IN THE CERVICAL SPINE. Head CT 11/17/19 00:00 IMPRESSION: SURGICAL CHANGES IN THE RIGHT FRONTAL LOBE WITH MILD ENCEPHALOMALACIA. MILD CHRONIC CHANGES OF ATROPHY AND MICROVASCULAR ISCHEMIA. NO ACUTE PROCESS. EVIDENCE OF ACUTE STROKE: NO. Chest X-Ray 11/17/19 12:54 IMPRESSION: LEFT LOWER LOBE INFILTRATE SUSPICIOUS FOR PNEUMONIA. Chest/Abdomen CTA 11/17/19 14:00 IMPRESSION: 1. NORMAL CTA OF THE CHEST. NO PULMONARY EMBOLI. 2. CARDIOMEGALY WITH BILATERAL PLEURAL EFFUSIONS AND COMPRESSIVE ATELECTASIS IN THE LUNG BASES. HAZY GROUND-GLASS OPACITIES THROUGHOUT BOTH LUNGS LIKELY REPRESENTS EARLY PULMONARY EDEMA. 3. PERICARDIAL EFFUSION. 4. EXTENSIVE SCLEROTIC BONY METASTASES. Chest X-Ray 11/18/19 06:00 IMPRESSION: Unchanged left retrocardiac opacity associated with air bronchograms. Carotid Doppler Study 11/19/19 00:00 IMPRESSION: NO HEMODYNAMICALLY SIGNIFICANT STENOSIS. IMPRESSION/recommendation: 1. Paroxysmal supraventricular tachycardia:: Terminated with 1 dose of adenosine. The patient's vasopressin and esmolol drip has been discontinued yesterday. The patient is now on oral calcium channel jennifer and tolerating it well. He remains in sinus rhythm. We will decrease the patient's verapamil to his 80 mg p.o. every 8 hours. Later we will transition to a long-acting preparation. 2. Torticollis: Possibly secondary to underlying infection causing muscle spasm and pain versus secondary to metastatic cervical spine disease. This is resolved 3 asymptomatic hypotension: The patient was given Cardizem which brought the blood pressure up. Will write parameters for verapamil dosing. This has been discussed with Dr. Haney. 4. Possible sepsis: Continue antibiotics and vasopressin. 5. History of hypertension: At present blood pressures on the low side. 6. 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 7. Possible left lower lobe pneumonia: Continue antibiotics. Continue hydration. 8. Cardiomyopathy. Most likely rate related. The patient and the son-in-law's states there is no prior cardiac issues with the patient. There is no history of congestive heart failure or any atrial arrhythmia. Once the patient's heart rate is controlled we will repeat the echo to see if it is rate related cardiomyopathy. 9. Hypokalemia and hypocalcemia: Replenish potassium and calcium. This is being done. Potassium is now high and still at 6.3. The patient's potassium has been stopped. His blood sugar is still within normal range. We will get a stat potassium level the patient's repeat potassium level last night was 5.7 and today morning is 5.4. This is most likely due to tumor lysis syndrome. 10. Diabetes mellitus: Continue antidiabetic medication. Continue serial Accu-Cheks. `11. Severely elevated alkaline phosphatase levels. This is secondary to patient's bony metastasis. 12. Anemia. Patient received 1 unit of packed RBCs today. Medications reviewed. Medication dosages adjusted new medications given. Medical regimen and management plan discussed with Dr. Haney medical decision making is of high complexity. 40 minutes spent on the patient more than 50% of time spent in direct patient care. Will follow
[2019-11-26] MEDS: ATORVASTATIN CALCIUM 10 MG TABLET PO SCH (22:42)
[2019-11-27 00:20] LABS: HEMATOCRIT 30.4 % (37.9-51.0); MEAN CORPUSCULAR HEMOGLOBIN 28.7 pg (27.0-33.4); MEAN CORPUSCULAR HGB CONC 33.6 g/dL (32.0-36.0); MEAN CORPUSCULAR VOLUME 86 fl (80-97); PLATELET COUNT 225 10^3/uL (150-450); RED BLOOD COUNT 3.56 10^6/uL (4.35-5.55); RED CELL DISTRIBUTION WIDTH 20.3 % (11.5-14.0); WHITE BLOOD COUNT 9.5 10^3/uL (4.0-10.5)
[2019-11-27 00:23] LABS: HEMOGLOBIN 10.2 g/dL (13.5-17.0)
[2019-11-27] MEDS: HEPARIN SOD (PORCINE) 5,000 UNIT/ML 1 ML VIAL SUBCUT SCH ×3 (02:13→17:01)
[2019-11-27] MEDS: INSULIN REG, HUMAN 100 UNIT/ML 3 ML VIAL (PYX) SUBCUT SCH ×4 (08:26→21:46)
[2019-11-27 09:06] LABS: ANION GAP 11 (5-19); BLOOD UREA NITROGEN 9 mg/dL (7-20); CARBON DIOXIDE 21 mmol/L (22-30); CHLORIDE 108 mmol/L (98-107); GLUCOSE 76 mg/dL (75-110); POTASSIUM 4.7 mmol/L (3.6-5.0)
[2019-11-27 09:18] LABS: CALCIUM 6.1 mg/dL (8.4-10.2)
[2019-11-27] MEDS: VERAPAMIL HCL 120 MG TABLET.SA PO SCH ×2 (09:24→21:42)
[2019-11-27] MEDS: CALCIUM CARBONATE 250 MG/VITAMIN D3 125 UNIT TABLET PO SCH ×3 (09:27→17:00)
[2019-11-27] MEDS: SITAGLIPTIN PHOSPHATE 50 MG TABLET PO SCH (09:28)
[2019-11-27] MEDS: LEVETIRACETAM 500 MG TABLET PO SCH ×2 (09:28→21:48)
[2019-11-27] MEDS: PREDNISONE 10 MG TABLET PO SCH (09:28)
[2019-11-27] MEDS: TAMSULOSIN HCL 0.4 MG CAP.SR.24H PO SCH (17:01)
[2019-11-27] MEDS: CALCIUM GLUCONATE 1000 MG/10 ML INJ IV SCH ×2 (17:01→18:25)
--- NOTE | 2019-11-27 19:07 | PDOC PROGRESS REPORT ---
Subjective Progress Note for:: 11/27/19 Subjective:: No chest pain or difficulty with breathing. No abdominal pain, nausea, or vomiting. Appetite and P.O intake improving. His serum calcium remain significantly low. Reason For Visit: SVT Physical Exam Vital Signs: Temp Pulse Resp BP Pulse Ox 98.5 F 92 16 97/64 L 100 11/27/19 16:18 11/27/19 16:18 11/27/19 16:18 11/27/19 16:18 11/27/19 16:18 Intake & Output 11/26/19 11/27/19 11/28/19 06:59 06:59 06:59 Intake Total 1220 1438 866 Output Total 400 1300 700 Balance 820 138 166 Weight 67.2 kg 67.5 kg Physical Exam: General appearance: PRESENT: no acute distress, well-developed, well-nourished Head exam: PRESENT: atraumatic, normocephalic Eye exam: PRESENT: conjunctiva pink. ABSENT: pallor, scleral icterus Ear exam: PRESENT: normal external ear exam Mouth exam: PRESENT: moist Respiratory exam: PRESENT: clear to auscultation rebecca Cardiovascular exam: PRESENT: RRR, +S1, +S2. ABSENT: diastolic murmur, rubs, systolic murmur GI/Abdominal exam: PRESENT: normal bowel sounds, soft. ABSENT: distended, gua rding, mass, organomegaly, rebound, tenderness Extremities exam: ABSENT: pedal edema Neurological exam: PRESENT: alert, awake, oriented to person, oriented to place, oriented to time, oriented to situation, CN II-XII grossly intact. ABSENT: motor sensory deficit Psychiatric exam: PRESENT: appropriate affect, normal mood. ABSENT: homicidal ideation, suicidal ideation Skin exam: PRESENT: dry, warm Results Laboratory Results: 11/26/19 23:49 11/27/19 07:45 11/26/19 11/27/19 23:49 07:45 WBC 9.5 RBC 3.56 L Hgb 10.2 L D Hct 30.4 L MCV 86 MCH 28.7 MCHC 33.6 RDW 20.3 H Plt Count 225 Sodium 139.5 Potassium 4.7 Chloride 108 H Carbon Dioxide 21 L Anion Gap 11 BUN 9 Creatinine 1.09 Est GFR ( Amer) > 60 Glucose 76 Calcium 6.1 L* 0111/17/19 11/17/19 13:25 13:25 13:25 Creatine Kinase 211 H CK-MB (CK-2) 0.43 Troponin I 0.051 NT-Pro-B Natriuret Pep 11/17/19 11/18/19 23:06 05:40 Creatine Kinase 182 H CK-MB (CK-2) Troponin I NT-Pro-B Natriuret Pep 317 H Impressions: Cervical Spine CT 11/17/19 00:00 IMPRESSION: MULTIPLE SCLEROTIC LESIONS IN THE VERTEBRAE CONSISTENT WITH BONY METASTASES. NO ACUTE FINDINGS IN THE CERVICAL SPINE. Head CT 11/17/19 00:00 IMPRESSION: SURGICAL CHANGES IN THE RIGHT FRONTAL LOBE WITH MILD ENCEPHA LOMALACIA. MILD CHRONIC CHANGES OF ATROPHY AND MICROVASCULAR ISCHEMIA. NO ACUTE PROCESS. EVIDENCE OF ACUTE STROKE: NO. Chest/Abdomen CTA 11/17/19 14:00 IMPRESSION: 1. NORMAL CTA OF THE CHEST. NO PULMONARY EMBOLI. 2. CARDIOMEGALY WITH BILATERAL PLEURAL EFFUSIONS AND COMPRESSIVE ATELECTASIS IN THE LUNG BASES. HAZY GROUND-GLASS OPACITIES THROUGHOUT BOTH LUNGS LIKELY R EPRESENTS EARLY PULMONARY EDEMA. 3. PERICARDIAL EFFUSION. 4. EXTENSIVE SCLEROTIC BONY METASTASES. Chest X-Ray 11/18/19 06:00 IMPRESSION: Unchanged left retrocardiac opacity associated with air bronchograms. Carotid Doppler Study 11/19/19 00:00 IMPRESSION: NO HEMODYNAMICALLY SIGNIFICANT STENOSIS. Assessment & Plan - Diagnosis (1) Paroxysmal SVT (supraventricular tachycardia) Is this a current diagnosis for this admission?: Yes (2) Acute hyperkalemia Is this a current diagnosis for this admission?: Yes (3) Diabetes mellitus type 2 in nonobese Is this a current diagnosis for this admission?: Yes (4) HTN (hypertension) Qualifiers: Hypertension type: essential hypertension Qualified Code(s): I10 - Essential (primary) hypertension Is this a current diagnosis for this admission?: Yes (5) HLD (hyperlipidemia) Qualifiers: Hyperlipidemia type: pure hypertriglyceridemia Qualified Code(s): E78.1 - Pure hyperglyceridemia Is this a current diagnosis for this admission?: Yes (6) Malignant neoplasm of prostate metastatic to bone Is this a current diagnosis for this admission?: Yes (7) Osteoarthritis involving multiple joints on both sides of body Is this a current diagnosis for this admission?: Yes (8) Drug-induced hyperkalemia Is this a current diagnosis for this admission?: Yes (9) Hypocalcemia Is this a current diagnosis for this admission?: Yes - Time Time Spent with patient: 35 or more minutes Level of Care: IMCU Medications reviewed and adjusted accordingly: Yes Anticipated discharge: Home with Homehealth Within: Other - Inpatient Certification Based on my medical assessment, after consideration of the patient's c omorbidities, presenting symptoms, or acuity I expect that the services needed warrant INPATIENT care.: Yes I certify that my determination is in accordance with my understanding of Medicare's requirements for reasonable and necessary INPATIENT services [42 CFR 412.3e].: Yes Medical Necessity: Significant Comorbidiites Make Outpatient Treatment Too Risky, Need Close Monitoring Due to Risk of Patient Decompensation, Need For Continuous Telemetry Monitoring, Risk of Complication if Not Cared For in Hospital, Risk of Diagnosis Which Will Require Inpatient Eval/Care/Monitoring 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 D/C Calcium with Vit D. Star on Calcium Carbonate 500 mg p.o qid with meal. Vitamin D 1000 units p.o daily. Continue all other current medication management.
[2019-11-27] MEDS: ATORVASTATIN CALCIUM 10 MG TABLET PO SCH (21:47)
--- NOTE | 2019-11-27 23:04 | Progress Note ---
Provider Note Provider Note: CARDIOLOGY PROGRESS NOTE by Dr. Mavis Mandel on 11/27/2019. OBJECTIVE: The patient seems to be slightly confused. But in no acute distress. He denies any chest pain or discomfort. There is no recurrence of her SVT. The patient's blood pressure is in the high 90s, but the patient is asymptomatic. He is able to tolerate the Cardizem CD 120 mg p.o. every 12 hours. There is no ventricular rhythm is seen. Physical EXAMINATION: The patient appears to be chronically ill. In no acute distress. Selected Entries 11/27/19 07:39 Temperature 98.6 F Temperature Oral Source Pulse Rate 91 Respiratory 16 Rate Blood Pressure 98/67 L Blood Pressure 77 Mean BP Location Right Arm BP Position Supine O2 Sat by Pulse 97 Oximetry Oxygen Delivery Room Air Method HEAD: Scar of prior right craniotomy present. Normocephalic. EYES: Pupils are equal round regular reactive to light and accommodation. There is conjunctival pallor. There is no scleral icterus. EARS: Tympanic membranes are intact. External auditory canals are clear. NOSE nose: There is no deviated nasal septum. There is no inflammation nasal mucous membrane. MOUTH: Mucous membranes of mouth are slightly dry. There is no bleeding from the gums. THROAT: There is no redness of the oropharynx. There is no exudates. SKIN: There is no petechia or ecchymosis. There is no skin lesions or skin rashes. 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 Right side of neck is tender neck movements are limited due to pain and muscle spasm. There is no palpable lymphadenopathy. There is no goiter. There is no accessory muscle respiration use. TRACHEA is central. LUNGS: Clear to auscultation percussion. Heart: S1-S2 is heard. There is no S3 gallop. There is no S4 gallop. There is mild mitral regurgitation murmur present. There is no aortic stenosis or aortic regurgitation murmur. There is no S3 gallop. There is no S4 gallop. S1 is of normal intensity. There is no rub. ABDOMEN: Soft nontender. There is no hepatosplenomegaly bowel sounds are well heard. EXTREMITIES: Femorals are well felt. There is no femoral bruits. Leg pulses well felt. There is no pedal edema. There is no DVT or cellulitis. There is no cyanosis or clubbing. 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 And also situation. He has weak upper extremity and lower extremity. No focal deficits though. PSYCHIATRIC: Patient is in spite of his low blood pressures judgment site seem to be intact. He does not appear to be anxious or agitated. Abnormal - 24 hr 11/26/19 11/27/19 11/27/19 23:49 07:45 12:02 RBC 3.56 L Hgb 10.2 L D Hct 30.4 L RDW 20.3 H Chloride 108 H Carbon Dioxide 21 L POC Glucose 133 H Calcium 6.1 L* 11/27/19 11/27/19 16:17 21:31 RBC Hgb Hct RDW Chloride Carbon Dioxide POC Glucose 121 H 115 H Calcium C[address]ical Spine CT 11/17/19 00:00 IMPRESSION: MULTIPLE SCLEROTIC LESIONS IN THE VERTEBRAE CONSISTENT WITH BONY METASTASES. NO ACUTE FINDINGS IN THE CERVICAL SPINE. Head CT 11/17/19 00:00 IMPRESSION: SURGICAL CHANGES IN THE RIGHT FRONTAL LOBE WITH MILD EN CEPHALOMALACIA. MILD CHRONIC CHANGES OF ATROPHY AND MICROVASCULAR ISCHEMIA. NO ACUTE PROCESS. EVIDENCE OF ACUTE STROKE: NO. Chest X-Ray 11/17/19 12:54 IMPRESSION: LEFT LOWER LOBE INFILTRATE SUSPICIOUS FOR PNEUMONIA. Chest/Abdomen CTA 11/17/19 14:00 IMPRESSION: 1. NORMAL CTA OF THE CHEST. NO PULMONARY EMBOLI. 2. CARDIOMEGALY WITH BILATERAL PLEURAL EFFUSIONS AND COMPRESSIVE ATELECTASIS IN THE LUNG BASES. HAZY GROUND-GLASS OPACITIES THROUGHOUT BOTH LUNGS LIKELY REPRESENTS EARLY PULMONARY EDEMA. 3. PERICARDIAL EFFUSION. 4. EXTENSIVE SCLEROTIC BONY METASTASES. Chest X-Ray 11/18/19 06:00 IMPRESSION: Unchanged left retrocardiac opacity associated with air bronchograms. Carotid Doppler Study 11/19/19 00:00 IMPRESSION: NO HEMODYNAMICALLY SIGNIFICANT STENOSIS. IMPRESSION/recommendation: 1. Paroxysmal supraventricular tachycardia:: Terminated with 1 dose of adenosine. The patient's vasopressin and esmolol drip has been discontinued yesterday. The patient is now on oral calcium channel jennifer and tolerating it well. He remains in sinus rhythm. We will decrease the patient's verapamil to his 80 mg p.o. every 8 hours. Later we will transition to a long-acting preparation. 2. Torticollis: Possibly secondary to underlying infection causing muscle spasm and pain versus secondary to metastatic cervical spine disease. This is resolved 3 asymptomatic hypotension: The patient was given Cardizem which brought the blood pressure up. Will write parameters for verapamil dosing. This has been discussed with Dr. Haney. 4. Possible sepsis: Continue antibiotics and vasopressin. 5. History of hypertension: At present blood pressures on the low side. 6. 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 7. Possible left lower lobe pneumonia: Continue antibiotics. Continue hydration. 8. Cardiomyopathy. Most likely rate related. The patient and the son-in-law's states there is no prior cardiac issues with the patient. There is no history of congestive heart failure or any atrial arrhythmia. Once the patient's heart rate is controlled we will repeat the echo to see if it is rate related cardiomyopathy. 9. Hypokalemia and hypocalcemia: Replenish potassium and calcium. This is being done. Potassium is now high and still at 6.3. The patient's potassium has been stopped. His blood sugar is still within normal range. We will get a stat potassium level the patient's repeat potassium level last night was 5.7 and today morning is 5.4. This is most likely due to tumor lysis syndrome. 10. Diabetes mellitus: Continue antidiabetic medication. Continue serial Accu-Cheks. `11. Severely elevated alkaline phosphatase levels. This is secondary to patient's bony metastasis. 12. Anemia. Patient received 1 unit of packed RBCs MEDICATIONS reviewed. Medical management and management plan discussed with attending physician. Medical decision making is of moderate complexity. 40 minutes spent on this patient with more than 50% of time spent in direct patient care. Will follow.
[2019-11-28] MEDS: HEPARIN SOD (PORCINE) 5,000 UNIT/ML 1 ML VIAL SUBCUT SCH ×3 (02:09→17:08)
[2019-11-28] MEDS: INSULIN REG, HUMAN 100 UNIT/ML 3 ML VIAL (PYX) SUBCUT SCH ×3 (08:06→16:10)
[2019-11-28] MEDS ORDERED: CHOLECALCIFEROL (D3) 1,000 UNIT (25 MCG) TABLET PO SCH (10:00)
[2019-11-28] MEDS: VERAPAMIL HCL 120 MG TABLET.SA PO SCH (10:14)
[2019-11-28] MEDS: PREDNISONE 10 MG TABLET PO SCH (10:16)
[2019-11-28] MEDS: LEVETIRACETAM 500 MG TABLET PO SCH (10:16)
[2019-11-28] MEDS: SITAGLIPTIN PHOSPHATE 50 MG TABLET PO SCH (10:16)
[2019-11-28] MEDS: CALCIUM CARBONATE 500 MG TABLET PO SCH ×3 (10:16→17:09)
[2019-11-28 14:11] LABS: HEMATOCRIT 32.6 % (37.9-51.0); HEMOGLOBIN 10.8 g/dL (13.5-17.0); MEAN CORPUSCULAR HEMOGLOBIN 28.2 pg (27.0-33.4); MEAN CORPUSCULAR HGB CONC 33.3 g/dL (32.0-36.0); MEAN CORPUSCULAR VOLUME 85 fl (80-97); PLATELET COUNT 218 10^3/uL (150-450); RED BLOOD COUNT 3.84 10^6/uL (4.35-5.55); RED CELL DISTRIBUTION WIDTH 20.1 % (11.5-14.0); WHITE BLOOD COUNT 9.4 10^3/uL (4.0-10.5)
--- NOTE | 2019-11-28 14:11 | Progress Note ---
Provider Note Provider Note: CARDIOLOGY PROGRESS NOTE by Dr. Mavis Mandel on 11/28/2019. OBJECTIVE: The patient denies any chest pain or discomfort. There is no recurrence of SVT. There is no PND orthopnea or shortness of breath. There is no TIA CVA symptoms. The patient is more awake and alert today and seems to be oriented x3. Physical EXAMINATION: The patient appears to be chronically ill. He appears to be in no acute distress. Selected Entries 11/28/19 11/28/19 11/28/19 11:31 12:00 13:00 Temperature 98.6 F Heart Rate ( 100 98 Monitors) Blood Pressure 102/69 Blood Pressure 80 Mean O2 Sat by Pulse 94 Oximetry HEAD: Scar of prior right craniotomy present. Normocephalic. EYES: Pupils are equal round regular reactive to light and accommodation. There is conjunctival pallor. There is no scleral icterus. EARS: Tympanic membranes are intact. External auditory canals are clear. NOSE nose: There is no deviated nasal septum. There is no inflammation nasal mucous membrane. MOUTH: Mucous membranes of mouth are slightly dry. There is no bleeding from the gums. THR OAT: There is no redness of the oropharynx. There is no exudates. SKIN: There is no petechia or ecchymosis. There is no skin lesions or skin rashes. 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 Right side of neck is tender neck movements are limited due to pain and muscle spasm. There is no palpable lymphadenopathy. There is no goiter. There is no accessory muscle respiration use. TRACHEA is central. LUNGS: Clear to auscultation percussion. Heart: S1-S2 is heard. There is no S3 gallop. There is no S4 gallop. There is mild mitral regurgitation murmur present. There is no aortic stenosis or aortic regurgitation murmur. There is no S3 gallop. There is no S4 gallop. S1 is of normal intensity. There is no rub. ABDOMEN: Soft nontender. There is no hepatosplenomegaly bowel sounds are well heard. EXTREMITIES: Femorals are well felt. There is no femoral bruits. Leg pulses well felt. There is no pedal edema. There is no DVT or cellulitis. There is no cyanosis or clubbing. 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 And also situation. He has weak upper extremity and lower extremity. No focal deficits though. PSYCHIATRIC: Patient is in spite of his low blood pressures judgment site seem to be intact. He does not appear to be anxious or agitated. Labs- Entire Visit 11/17/19 11/17/19 11/17/19 13:25 13:25 13:25 WBC 12.1 H RBC 3.22 L Hgb 9.1 L Hct 27.6 L MCV 86 MCH 28.2 MCHC 33.0 RDW 21.8 H Plt Count 396 Lymph % (Auto) Not Reportable [place] % (Auto) Not Reportable Eos % (Auto) Not Reportable Baso % (Auto) Not Reportable Absolute Neuts (auto) Not Reportable Absolute Lymphs (auto) Not Reportable Absolute Monos (auto) Not Reportable Absolute Eos (auto) Not Reportable Absolute Basos (auto) Not Reportable Total Counted 100 Seg Neutrophils % Not Reportable Seg Neuts % (Manual) 88 H Band Neutrophils % Lymphocytes % (Manual) 7 L Monocytes % (Manual) 5 Eosinophils % (Manual) 0 Basophils % (Manual) 0 Metamyelocytes % Myelocytes % Promyelocytes % Abs Neuts (Manual) 10.6 H Abs Lymphs (Manual) 0.8 Abs Monocytes (Manual) 0.6 Absolute Eos (Manual) 0.0 Abs Basophils (Manual) 0.0 Nucleated RBCs Toxic Granulation Toxic Vacuolation Clumped Platelets Platelet Comment ADEQUATE Polychromasia SLIGHT Poikilocytosis Basophilic Stippling Anisocytosis 3+ Tear Drop Cells SLIGHT Ovalocytes 1+ Schistocytes PT 16.8 H INR 1.35 APTT VBG pH VBG pCO2 VBG HCO3 VBG Base Excess Sodium 142.6 Potassium 3.8 Chloride 105 Carbon Dioxide 21 L Anion Gap 17 BUN 20 Creatinine 1.20 Est GFR ( Amer) > 60 Est GFR (MDRD) Non-Af > 60 Glucose 128 H POC Glucose Lactic Acid Calcium 4.8 L* Ionized Calcium [place] Phosphorus Magnesium Total Bilirubin 0.5 Direct Bilirubin 0.4 Neonat Total Bilirubin 0.1 Neonat Direct Bilirubin 0.0 Neonat Indirect Bili 0.1 AST 104 H ALT 24 Alkaline Phosphatase 1918 H Ammonia Creatine Kinase CK-MB (CK-2) Troponin I NT-Pro-B Natriuret Pep Total Protein 6.0 L Albumin 2.9 L Vitamin D 25-Hydroxy TSH Free T4 Free T3 pg/mL Urine Color Urine Appearance Urine pH Ur Specific [place] Urine Protein Urine Glucose (UA) Urine Ketones Urine Blood Urine Nitrite Urine Nitrite (Reflex) Urine Bilirubin Urine Urobilinogen Ur Leukocyte Esterase Leukocyte Esterase Rfl Urine WBC (Auto) Urine RBC (Auto) Urine WBC (Reflex) Squamous Epi Cells Auto Urine Mucus (Auto) Urine Creatinine Urine Calcium Ur Calcium 24 Hr Calcium/Creat Ratio Urine Ascorbic Acid Time Trough Drawn Vancomycin Trough Influenza A (Rapid) Influenza B (Rapid) Slides for Path Review Blood Type Antibody Screen Crossmatch 11/17/19 11/17/19 11/17/19 13:25 13:25 13:25 WBC RBC Hgb Hct MCV MCH MCHC RDW Plt Count Lymph % (Auto) [place] % (Auto) Eos % (Auto) Baso % (Auto) Absolute Neuts (auto) Absolute Lymphs (auto) Absolute Monos (auto) Absolute Eos (auto) Absolute Basos (auto) Total Counted Seg Neutrophils % Seg Neuts % (Manual) Band Neutrophils % Lymphocytes % (Manual) Monocytes % (Manual) Eosinophils % (Manual) Basophils % (Manual) Metamyelocytes % Myelocytes % Promyelocytes % Abs Neuts (Manual) Abs Lymphs (Manual) Abs Monocytes (Manual) Absolute Eos (Manual) Abs Basophils (Manual) Nucleated RBCs Toxic Granulation Toxic Vacuolation Clumped Platelets Platelet Comment Polychromasia Poikilocytosis Basophilic Stippling Anisocytosis Tear Drop Cells Ovalocytes Schistocytes PT INR APTT VBG pH 7.38 VBG pCO2 36.2 VBG HCO3 20.9 VBG Base Excess -3.4 Sodium Potassium Chloride Carbon Dioxide Anion Gap BUN Creatinine Est GFR ( Amer) Est GFR (MDRD) Non-Af Glucose POC Glucose Lactic Acid 1.1 Calcium Ionized Calcium [place] Phosphorus Magnesium Total Bilirubin Direct Bilirubin Neonat Total Bilirubin Neonat Direct Bilirubin Neonat Indirect Bili AST ALT Alkaline Phosphatase Ammonia Creatine Kinase CK-MB (CK-2) Troponin I 0.051 NT-Pro-B Natriuret Pep Total Protein Albumin Vitamin D 25-Hydroxy TSH Free T4 Free T3 pg/mL Urine Color Urine Appearance Urine pH Ur Specific [place] Urine Protein Urine Glucose (UA) Urine Ketones Urine Blood Urine Nitrite Urine Nitrite (Reflex) Urine Bilirubin Urine Urobilinogen Ur Leukocyte Esterase Leukocyte Esterase Rfl Urine WBC (Auto) Urine RBC (Auto) Urine WBC (Reflex) Squamous Epi Cells Auto Urine Mucus (Auto) Urine Creatinine Urine Calcium Ur Calcium 24 Hr Calcium/Creat Ratio Urine Ascorbic Acid Time Trough Drawn Vancomycin Trough Influenza A (Rapid) Influenza B (Rapid) Slides for Path Review Blood Type Antibody Screen Crossmatch 11/17/19 11/17/19 11/17/19 13:25 13:25 13:25 WBC RBC Hgb Hct MCV MCH MCHC RDW Plt Count Lymph % (Auto) [place] % (Auto) Eos % (Auto) Baso % (Auto) Absolute Neuts (auto) Absolute Lymphs (auto) Absolute Monos (auto) Absolute Eos (auto) Absolute Basos (auto) Total Counted Seg Neutrophils % Seg Neuts % (Manual) Band Neutrophils % Lymphocytes % (Manual) Monocytes % (Manual) Eosinophils % (Manual) Basophils % (Manual) Metamyelocytes % Myelocytes % Promyelocytes % Abs Neuts (Manual) Abs Lymphs (Manual) Abs Monocytes (Manual) Absolute Eos (Manual) Abs Basophils (Manual) Nucleated RBCs Toxic Granulation Toxic Vacuolation Clumped Platelets Platelet Comment Polychromasia Poikilocytosis Basophilic Stippling Anisocytosis Tear Drop Cells Ovalocytes Schistocytes PT INR APTT VBG pH VBG pCO2 VBG HCO3 VBG Base Excess Sodium Potassium Chloride Carbon Dioxide Anion Gap BUN Creatinine Est GFR ( Amer) Est GFR (MDRD) Non-Af Glucose POC Glucose Lactic Acid Calcium Ionized Calcium [place] Phosphorus 2.6 Magnesium 2.1 Total Bilirubin Direct Bilirubin Neonat Total Bilirubin Neonat Direct Bilirubin Neonat Indirect Bili AST ALT Alkaline Phosphatase Ammonia Creatine Kinase 211 H CK-MB (CK-2) 0.43 Troponin I NT-Pro-B Natriuret Pep Total Protein Albumin Vitamin D 25-Hydroxy TSH 2.26 Free T4 0.61 L Free T3 pg/mL 2.09 L Urine Color Urine Appearance Urine pH Ur Specific [place] Urine Protein Urine Glucose (UA) Urine Ketones Urine Blood Urine Nitrite Urine Nitrite (Reflex) Urine Bilirubin Urine Urobilinogen Ur Leukocyte Esterase Leukocyte Esterase Rfl Urine WBC (Auto) Urine RBC (Auto) Urine WBC (Reflex) Squamous Epi Cells Auto Urine Mucus (Auto) Urine Creatinine Urine Calcium Ur Calcium 24 Hr Calcium/Creat Ratio Urine Ascorbic Acid Time Trough Drawn Vancomycin Trough Influenza A (Rapid) Influenza B (Rapid) Slides for Path Review Blood Type Antibody Screen Crossmatch 11/17/19 11/17/19 11/17/19 16:22 17:35 18:30 WBC RBC Hgb Hct MCV MCH MCHC RDW Plt Count Lymph % (Auto) [place] % (Auto) Eos % (Auto) Baso % (Auto) Absolute Neuts (auto) Absolute Lymphs (auto) Absolute Monos (auto) Absolute Eos (auto) Absolute Basos (auto) Total Counted Seg Neutrophils % Seg Neuts % (Manual) Band Neutrophils % Lymphocytes % (Manual) Monocytes % (Manual) Eosinophils % (Manual) Basophils % (Manual) Metamyelocytes % Myelocytes % Promyelocytes % Abs Neuts (Manual) Abs Lymphs (Manual) Abs Monocytes (Manual) Absolute Eos (Manual) Abs Basophils (Manual) Nucleated RBCs Toxic Granulation Toxic Vacuolation Clumped Platelets Platelet Comment Polychromasia Poikilocytosis Basophilic Stippling Anisocytosis Tear Drop Cells Ovalocytes Schistocytes PT INR APTT VBG pH VBG pCO2 VBG HCO3 VBG Base Excess Sodium Potassium Chloride Carbon Dioxide Anion Gap BUN Creatinine Est GFR ( Amer) Est GFR (MDRD) Non-Af Glucose POC Glucose Lactic Acid 0.9 Calcium Ionized Calcium [place] Phosphorus Magnesium Total Bilirubin Direct Bilirubin Neonat Total Bilirubin Neonat Direct Bilirubin Neonat Indirect Bili AST ALT Alkaline Phosphatase Ammonia < 8.7 L Creatine Kinase CK-MB (CK-2) Troponin I NT-Pro-B Natriuret Pep Total Protein Albumin Vitamin D 25-Hydroxy TSH Free T4 Free T3 pg/mL Urine Color YELLOW Urine Appearance SLIGHTLY-CLOUDY Urine pH 5.0 Ur Specific [place] 1.026 Urine Protein 100 H Urine Glucose (UA) NEGATIVE Urine Ketones 20 H Urine Blood MODERATE H Urine Nitrite Urine Nitrite (Reflex) NEGATIVE Urine Bilirubin NEGATIVE Urine Urobilinogen NEGATIVE Ur Leukocyte Esterase Leukocyte Esterase Rfl NEGATIVE Urine WBC (Auto) Urine RBC (Auto) 8 Urine WBC (Reflex) 6 Squamous Epi Cells Auto 1 Urine Mucus (Auto) RARE Urine Creatinine Urine Calcium Ur Calcium 24 Hr Calcium/Creat Ratio Urine Ascorbic Acid NEGATIVE Time Trough Drawn Vancomycin Trough Influenza A (Rapid) Influenza B (Rapid) Slides for Path Review Blood Type Antibody Screen Crossmatch 11/17/19 11/17/19 11/17/19 21:27 23:06 23:06 WBC RBC Hgb Hct MCV MCH MCHC RDW Plt Count Lymph % (Auto) [place] % (Auto) Eos % (Auto) Baso % (Auto) Absolute Neuts (auto) Absolute Lymphs (auto) Absolute Monos (auto) Absolute Eos (auto) Absolute Basos (auto) Total Counted Seg Neutrophils % Seg Neuts % (Manual) Band Neutrophils % Lymphocytes % (Manual) Monocytes % (Manual) Eosinophils % (Manual) Basophils % (Manual) Metamyelocytes % Myelocytes % Promyelocytes % Abs Neuts (Manual) Abs Lymphs (Manual) Abs Monocytes (Manual) Absolute Eos (Manual) Abs Basophils (Manual) Nucleated RBCs Toxic Granulation Toxic Vacuolation Clumped Platelets Platelet Comment Polychromasia Poikilocytosis Basophilic Stippling Anisocytosis Tear Drop Cells Ovalocytes Schistocytes PT INR APTT VBG pH VBG pCO2 VBG HCO3 VBG Base Excess Sodium 140.1 Potassium 3.3 L Chloride 103 Carbon Dioxide 28 Anion Gap 9 BUN 17 Creatinine 1.02 Est GFR ( Amer) > 60 Est GFR (MDRD) Non-Af > 60 Glucose 132 H POC Glucose Lactic Acid 1.3 Calcium 4.8 L* Ionized Calcium [place] Phosphorus 2.4 L Magnesium Total Bilirubin Direct Bilirubin Neonat Total Bilirubin Neonat Direct Bilirubin Neonat Indirect Bili AST ALT Alkaline Phosphatase Ammonia Creatine Kinase CK-MB (CK-2) Troponin I NT-Pro-B Natriuret Pep Total Protein Albumin Vitamin D 25-Hydroxy TSH Free T4 Free T3 pg/mL Urine Color YELLOW Urine Appearance SLIGHTLY-CLOUDY Urine pH 6.0 Ur Specific [place] 1.024 Urine Protein 30 H Urine Glucose (UA) NEGATIVE Urine Ketones TRACE H Urine Blood MODERATE H Urine Nitrite NEGATIVE Urine Nitrite (Reflex) Urine Bilirubin NEGATIVE Urine Urobilinogen NEGATIVE Ur Leukocyte Esterase NEGATIVE Leukocyte Esterase Rfl Urine WBC (Auto) 8 Urine RBC (Auto) 8 Urine WBC (Reflex) Squamous Epi Cells Auto <1 Urine Mucus (Auto) RARE Urine Creatinine Urine Calcium Ur Calcium 24 Hr Calcium/Creat Ratio Urine Ascorbic Acid NEGATIVE Time Trough Drawn Vancomycin Trough Influenza A (Rapid) Influenza B (Rapid) Slides for Path Review Blood Type Antibody Screen Crossmatch 11/17/19 11/17/19 11/18/19 23:06 23:14 01:10 WBC RBC Hgb Hct MCV MCH MCHC RDW Plt Count Lymph % (Auto) [place] % (Auto) Eos % (Auto) Baso % (Auto) Absolute Neuts (auto) Absolute Lymphs (auto) Absolute Monos (auto) Absolute Eos (auto) Absolute Basos (auto) Total Counted Seg Neutrophils % Seg Neuts % (Manual) Band Neutrophils % Lymphocytes % (Manual) Monocytes % (Manual) Eosinophils % (Manual) Basophils % (Manual) Metamyelocytes % Myelocytes % Promyelocytes % Abs Neuts (Manual) Abs Lymphs (Manual) Abs Monocytes (Manual) Absolute Eos (Manual) Abs Basophils (Manual) Nucleated RBCs Toxic Granulation Toxic Vacuolation Clumped Platelets Platelet Comment Polychromasia Poikilocytosis Basophilic Stippling Anisocytosis Tear Drop Cells Ovalocytes Schistocytes PT INR APTT VBG pH VBG pCO2 VBG HCO3 VBG Base Excess Sodium Potassium Chloride Carbon Dioxide Anion Gap BUN Creatinine Est GFR ( Amer) Est GFR (MDRD) Non-Af Glucose POC Glucose Lactic Acid Calcium Ionized Calcium [place] 0.67 L Phosphorus Magnesium Total Bilirubin Direct Bilirubin Neonat Total Bilirubin Neonat Direct Bilirubin Neonat Indirect Bili AST ALT Alkaline Phosphatase Ammonia Creatine Kinase CK-MB (CK-2) Troponin I NT-Pro-B Natriuret Pep 317 H Total Protein Albumin Vitamin D 25-Hydroxy TSH Free T4 Free T3 pg/mL Urine Color Urine Appearance Urine pH Ur Specific [place] Urine Protein Urine Glucose (UA) Urine Ketones Urine Blood Urine Nitrite Urine Nitrite (Reflex) Urine Bilirubin Urine Urobilinogen Ur Leukocyte Esterase Leukocyte Esterase Rfl Urine WBC (Auto) Urine RBC (Auto) Urine WBC (Reflex) Squamous Epi Cells Auto Urine Mucus (Auto) Urine Creatinine Urine Calcium Ur Calcium 24 Hr Calcium/Creat Ratio Urine Ascorbic Acid Time Trough Drawn Vancomycin Trough Influenza A (Rapid) NEGATIVE Influenza B (Rapid) NEGATIVE Slides for Path Review Blood Type Antibody Screen Crossmatch 11/18/19 11/18/19 11/18/19 05:40 05:40 06:45 WBC 10.8 H RBC 2.91 L Hgb 8.1 L Hct 24.5 L MCV 84 MCH 27.9 MCHC 33.1 RDW 21.6 H Plt Count 343 Lymph % (Auto) Not Reportable [place] % (Auto) Not Reportable Eos % (Auto) Not Reportable Baso % (Auto) Not Reportable Absolute Neuts (auto) Not Reportable Absolute Lymphs (auto) Not Reportable Absolute Monos (auto) Not Reportable Absolute Eos (auto) Not Reportable Absolute Basos (auto) Not Reportable Total Counted 100 Seg Neutrophils % Not Reportable Seg Neuts % (Manual) 87 H Band Neutrophils % Lymphocytes % (Manual) 6 L Monocytes % (Manual) 4 Eosinophils % (Manual) 3 Basophils % (Manual) 0 Metamyelocytes % Myelocytes % Promyelocytes % Abs Neuts (Manual) 9.4 H Abs Lymphs (Manual) 0.6 Abs Monocytes (Manual) 0.4 Absolute Eos (Manual) 0.3 Abs Basophils (Manual) 0.0 Nucleated RBCs Toxic Granulation Toxic Vacuolation Clumped Platelets Platelet Comment ADEQUATE Polychromasia Poikilocytosis 1+ Basophilic Stippling Anisocytosis 3+ Tear Drop Cells SLIGHT Ovalocytes 1+ Schistocytes PT 17.3 H INR 1.40 APTT 43.2 H VBG pH VBG pCO2 VBG HCO3 VBG Base Excess Sodium 137.3 Potassium 3.8 Chloride 102 Carbon Dioxide 27 Anion Gap 8 BUN 14 Creatinine 0.89 Est GFR ( Amer) > 60 Est GFR (MDRD) Non-Af > 60 Glucose 168 H POC Glucose Lactic Acid Calcium 5.5 L* Ionized Calcium [place] Phosphorus 2.4 L Magnesium 1.8 Total Bilirubin 0.4 Direct Bilirubin 0.3 Neonat Total Bilirubin Not Reportable Neonat Direct Bilirubin Not Reportable Neonat Indirect Bili Not Reportable AST 76 H ALT 21 Alkaline Phosphatase 1483 H Ammonia Creatine Kinase 182 H CK-MB (CK-2) Troponin I NT-Pro-B Natriuret Pep Total Protein 5.6 L Albumin 2.9 L Vitamin D 25-Hydroxy TSH Free T4 Free T3 pg/mL Urine Color Urine Appearance Urine pH Ur Specific [place] Urine Protein Urine Glucose (UA) Urine Ketones Urine Blood Urine Nitrite Urine Nitrite (Reflex) Urine Bilirubin Urine Urobilinogen Ur Leukocyte Esterase Leukocyte Esterase Rfl Urine WBC (Auto) Urine RBC (Auto) Urine WBC (Reflex) Squamous Epi Cells Auto Urine Mucus (Auto) Urine Creatinine Urine Calcium Ur Calcium 24 Hr Calcium/Creat Ratio Urine Ascorbic Acid Time Trough Drawn Vancomycin Trough Influenza A (Rapid) Influenza B (Rapid) Slides for Path Review Blood Type Antibody Screen Crossmatch 11/18/19 11/18/19 11/18/19 08:00 11:05 16:11 WBC RBC Hgb Hct MCV MCH MCHC RDW Plt Count Lymph % (Auto) [place] % (Auto) Eos % (Auto) Baso % (Auto) Absolute Neuts (auto) Absolute Lymphs (auto) Absolute Monos (auto) Absolute Eos (auto) Absolute Basos (auto) Total Counted Seg Neutrophils % Seg Neuts % (Manual) Band Neutrophils % Lymphocytes % (Manual) Monocytes % (Manual) Eosinophils % (Manual) Basophils % (Manual) Metamyelocytes % Myelocytes % Promyelocytes % Abs Neuts (Manual) Abs Lymphs (Manual) Abs Monocytes (Manual) Absolute Eos (Manual) Abs Basophils (Manual) Nucleated RBCs Toxic Granulation Toxic Vacuolation Clumped Platelets Platelet Comment Polychromasia Poikilocytosis Basophilic Stippling Anisocytosis Tear Drop Cells Ovalocytes Schistocytes PT INR APTT VBG pH VBG pCO2 VBG HCO3 VBG Base Excess Sodium Potassium Chloride Carbon Dioxide Anion Gap BUN Creatinine Est GFR ( Amer) Est GFR (MDRD) Non-Af Glucose POC Glucose 126 H 132 H 196 H Lactic Acid Calcium Ionized Calcium [place] Phosphorus Magnesium Total Bilirubin Direct Bilirubin Neonat Total Bilirubin Neonat Direct Bilirubin Neonat Indirect Bili AST ALT Alkaline Phosphatase Ammonia Creatine Kinase CK-MB (CK-2) Troponin I NT-Pro-B Natriuret Pep Total Protein Albumin Vitamin D 25-Hydroxy TSH Free T4 Free T3 pg/mL Urine Color Urine Appearance Urine pH Ur Specific [place] Urine Protein Urine Glucose (UA) Urine Ketones Urine Blood Urine Nitrite Urine Nitrite (Reflex) Urine Bilirubin Urine Urobilinogen Ur Leukocyte Esterase Leukocyte Esterase Rfl Urine WBC (Auto) Urine RBC (Auto) Urine WBC (Reflex) Squamous Epi Cells Auto Urine Mucus (Auto) Urine Creatinine Urine Calcium Ur Calcium 24 Hr Calcium/Creat Ratio Urine Ascorbic Acid Time Trough Drawn Vancomycin Trough Influenza A (Rapid) Influenza B (Rapid) Slides for Path Review Blood Type Antibody Screen Crossmatch 11/18/19 11/19/19 11/19/19 21:03 03:14 03:14 WBC 9.5 RBC 2.72 L Hgb 7.7 L Hct 23.0 L MCV 85 MCH 28.4 MCHC 33.6 RDW 21.4 H Plt Count 309 Lymph % (Auto) Not Reportable [place] % (Auto) Not Reportable Eos % (Auto) Not Reportable Baso % (Auto) Not Reportable Absolute Neuts (auto) Not Reportable Absolute Lymphs (auto) Not Reportable Absolute Monos (auto) Not Reportable Absolute Eos (auto) Not Reportable Absolute Basos (auto) Not Reportable Total Counted 100 Seg Neutrophils % Not Reportable Seg Neuts % (Manual) 93 H Band Neutrophils % 3 Lymphocytes % (Manual) 3 L Monocytes % (Manual) 1 L Eosinophils % (Manual) 0 Basophils % (Manual) 0 Metamyelocytes % Myelocytes % Promyelocytes % Abs Neuts (Manual) 9.1 H Abs Lymphs (Manual) 0.3 L Abs Monocytes (Manual) 0.1 Absolute Eos (Manual) 0.0 Abs Basophils (Manual) 0.0 Nucleated RBCs Toxic Granulation SLIGHT Toxic Vacuolation Clumped Platelets Platelet Comment ADEQUATE Polychromasia Poikilocytosis Basophilic Stippling Anisocytosis 3+ Tear Drop Cells SLIGHT Ovalocytes 1+ Schistocytes PT INR APTT VBG pH VBG pCO2 VBG HCO3 VBG Base Excess Sodium 141.3 Potassium 3.5 L Chloride 102 Carbon Dioxide 31 H Anion Gap 8 BUN 13 Creatinine 0.72 Est GFR ( Amer) > 60 Est GFR (MDRD) Non-Af > 60 Glucose 151 H POC Glucose 188 H Lactic Acid Calcium 4.8 L* Ionized Calcium [place] Phosphorus 2.6 Magnesium 1.8 Total Bilirubin Direct Bilirubin Neonat Total Bilirubin Neonat Direct Bilirubin Neonat Indirect Bili AST ALT Alkaline Phosphatase Ammonia Creatine Kinase CK-MB (CK-2) Troponin I NT-Pro-B Natriuret Pep Total Protein Albumin Vitamin D 25-Hydroxy TSH Free T4 Free T3 pg/mL Urine Color Urine Appearance Urine pH Ur Specific [place] Urine Protein Urine Glucose (UA) Urine Ketones Urine Blood Urine Nitrite Urine Nitrite (Reflex) Urine Bilirubin Urine Urobilinogen Ur Leukocyte Esterase Leukocyte Esterase Rfl Urine WBC (Auto) Urine RBC (Auto) Urine WBC (Reflex) Squamous Epi Cells Auto Urine Mucus (Auto) Urine Creatinine Urine Calcium Ur Calcium 24 Hr Calcium/Creat Ratio Urine Ascorbic Acid Time Trough Drawn Vancomycin Trough Influenza A (Rapid) Influenza B (Rapid) Slides for Path Review Blood Type Antibody Screen Crossmatch 11/19/19 11/19/19 11/19/19 10:58 16:12 21:29 WBC RBC Hgb Hct MCV MCH MCHC RDW Plt Count Lymph % (Auto) [place] % (Auto) Eos % (Auto) Baso % (Auto) Absolute Neuts (auto) Absolute Lymphs (auto) Absolute Monos (auto) Absolute Eos (auto) Absolute Basos (auto) Total Counted Seg Neutrophils % Seg Neuts % (Manual) Band Neutrophils % Lymphocytes % (Manual) Monocytes % (Manual) Eosinophils % (Manual) Basophils % (Manual) Metamyelocytes % Myelocytes % Promyelocytes % Abs Neuts (Manual) Abs Lymphs (Manual) Abs Monocytes (Manual) Absolute Eos (Manual) Abs Basophils (Manual) Nucleated RBCs Toxic Granulation Toxic Vacuolation Clumped Platelets Platelet Comment Polychromasia Poikilocytosis Basophilic Stippling Anisocytosis Tear Drop Cells Ovalocytes Schistocytes PT INR APTT VBG pH VBG pCO2 VBG HCO3 VBG Base Excess Sodium Potassium Chloride Carbon Dioxide Anion Gap BUN Creatinine Est GFR ( Amer) Est GFR (MDRD) Non-Af Glucose POC Glucose 237 H 217 H 190 H Lactic Acid Calcium Ionized Calcium [place] Phosphorus Magnesium Total Bilirubin Direct Bilirubin Neonat Total Bilirubin Neonat Direct Bilirubin Neonat Indirect Bili AST ALT Alkaline Phosphatase Ammonia Creatine Kinase CK-MB (CK-2) Troponin I NT-Pro-B Natriuret Pep Total Protein Albumin Vitamin D 25-Hydroxy TSH Free T4 Free T3 pg/mL Urine Color Urine Appearance Urine pH Ur Specific [place] Urine Protein Urine Glucose (UA) Urine Ketones Urine Blood Urine Nitrite Urine Nitrite (Reflex) Urine Bilirubin Urine Urobilinogen Ur Leukocyte Esterase Leukocyte Esterase Rfl Urine WBC (Auto) Urine RBC (Auto) Urine WBC (Reflex) Squamous Epi Cells Auto Urine Mucus (Auto) Urine Creatinine Urine Calcium Ur Calcium 24 Hr Calcium/Creat Ratio Urine Ascorbic Acid Time Trough Drawn Vancomycin Trough Influenza A (Rapid) Influenza B (Rapid) Slides for Path Review Blood Type Antibody Screen Crossmatch 11/19/19 11/19/19 11/20/19 21:55 21:55 05:35 WBC 9.6 RBC 2.58 L Hgb 7.3 L Hct 22.0 L MCV 85 MCH 28.2 MCHC 33.2 RDW 21.4 H Plt Count 314 Lymph % (Auto) Not Reportable [place] % (Auto) Not Reportable Eos % (Auto) Not Reportable Baso % (Auto) Not Reportable Absolute Neuts (auto) Not Reportable Absolute Lymphs (auto) Not Reportable Absolute Monos (auto) Not Reportable Absolute Eos (auto) Not Reportable Absolute Basos (auto) Not Reportable Total Counted 100 Seg Neutrophils % Not Reportable Seg Neuts % (Manual) 91 H Band Neutrophils % Lymphocytes % (Manual) 5 L Monocytes % (Manual) 3 Eosinophils % (Manual) 1 Basophils % (Manual) 0 Metamyelocytes % Myelocytes % Promyelocytes % Abs Neuts (Manual) 8.7 H Abs Lymphs (Manual) 0.5 Abs Monocytes (Manual) 0.3 Absolute Eos (Manual) 0.1 Abs Basophils (Manual) 0.0 Nucleated RBCs 4 Toxic Granulation Toxic Vacuolation Clumped Platelets PRESENT Platelet Comment ADEQUATE Polychromasia SLIGHT Poikilocytosis SLIGHT Basophilic Stippling PRESENT Anisocytosis 3+ Tear Drop Cells Ovalocytes SLIGHT Schistocytes SLIGHT PT INR APTT VBG pH VBG pCO2 VBG HCO3 VBG Base Excess Sodium Potassium Chloride Carbon Dioxide Anion Gap BUN Creatinine 1.34 H Est GFR ( Amer) > 60 Est GFR (MDRD) Non-Af 53 L Glucose POC Glucose Lactic Acid Calcium Ionized Calcium [place] Phosphorus Magnesium Total Bilirubin Direct Bilirubin Neonat Total Bilirubin Neonat Direct Bilirubin Neonat Indirect Bili AST ALT Alkaline Phosphatase Ammonia Creatine Kinase CK-MB (CK-2) Troponin I NT-Pro-B Natriuret Pep Total Protein Albumin Vitamin D 25-Hydroxy TSH Free T4 Free T3 pg/mL Urine Color Urine Appearance Urine pH Ur Specific [place] Urine Protein Urine Glucose (UA) Urine Ketones Urine Blood Urine Nitrite Urine Nitrite (Reflex) Urine Bilirubin Urine Urobilinogen Ur Leukocyte Esterase Leukocyte Esterase Rfl Urine WBC (Auto) Urine RBC (Auto) Urine WBC (Reflex) Squamous Epi Cells Auto Urine Mucus (Auto) Urine Creatinine Urine Calcium Ur Calcium 24 Hr Calcium/Creat Ratio Urine Ascorbic Acid Time Trough Drawn 2155 Vancomycin Trough 21.8 H Influenza A (Rapid) Influenza B (Rapid) Slides for Path Review Blood Type Antibody Screen Crossmatch 11/20/19 11/20/19 11/20/19 05:35 07:51 11:30 WBC RBC Hgb Hct MCV MCH MCHC RDW Plt Count Lymph % (Auto) [place] % (Auto) Eos % (Auto) Baso % (Auto) Absolute Neuts (auto) Absolute Lymphs (auto) Absolute Monos (auto) Absolute Eos (auto) Absolute Basos (auto) Total Counted Seg Neutrophils % Seg Neuts % (Manual) Band Neutrophils % Lymphocytes % (Manual) Monocytes % (Manual) Eosinophils % (Manual) Basophils % (Manual) Metamyelocytes % Myelocytes % Promyelocytes % Abs Neuts (Manual) Abs Lymphs (Manual) Abs Monocytes (Manual) Absolute Eos (Manual) Abs Basophils (Manual) Nucleated RBCs Toxic Granulation Toxic Vacuolation Clumped Platelets Platelet Comment Polychromasia Poikilocytosis Basophilic Stippling Anisocytosis Tear Drop Cells Ovalocytes Schistocytes PT INR APTT VBG pH VBG pCO2 VBG HCO3 VBG Base Excess Sodium Potassium Chloride Carbon Dioxide Anion Gap BUN Creatinine Est GFR ( Amer) Est GFR (MDRD) Non-Af Glucose POC Glucose 186 H 166 H Lactic Acid Calcium Ionized Calcium [place] Phosphorus 3.2 Magnesium 1.6 Total Bilirubin Direct Bilirubin Neonat Total Bilirubin Neonat Direct Bilirubin Neonat Indirect Bili AST ALT Alkaline Phosphatase Ammonia Creatine Kinase CK-MB (CK-2) Troponin I NT-Pro-B Natriuret Pep Total Protein Albumin Vitamin D 25-Hydroxy TSH Free T4 Free T3 pg/mL Urine Color Urine Appearance Urine pH Ur Specific [place] Urine Protein Urine Glucose (UA) Urine Ketones Urine Blood Urine Nitrite Urine Nitrite (Reflex) Urine Bilirubin Urine Urobilinogen Ur Leukocyte Esterase Leukocyte Esterase Rfl Urine WBC (Auto) Urine RBC (Auto) Urine WBC (Reflex) Squamous Epi Cells Auto Urine Mucus (Auto) Urine Creatinine Urine Calcium Ur Calcium 24 Hr Calcium/Creat Ratio Urine Ascorbic Acid Time Trough Drawn Vancomycin Trough Influenza A (Rapid) Influenza B (Rapid) Slides for Path Review Blood Type Antibody Screen Crossmatch 11/20/19 11/20/19 11/21/19 16:09 22:03 03:58 WBC RBC Hgb Hct MCV MCH MCHC RDW Plt Count Lymph % (Auto) [place] % (Auto) Eos % (Auto) Baso % (Auto) Absolute Neuts (auto) Absolute Lymphs (auto) Absolute Monos (auto) Absolute Eos (auto) Absolute Basos (auto) Total Counted Seg Neutrophils % Seg Neuts % (Manual) Band Neutrophils % Lymphocytes % (Manual) Monocytes % (Manual) Eosinophils % (Manual) Basophils % (Manual) Metamyelocytes % Myelocytes % Promyelocytes % Abs Neuts (Manual) Abs Lymphs (Manual) Abs Monocytes (Manual) Absolute Eos (Manual) Abs Basophils (Manual) Nucleated RBCs Toxic Granulation Toxic Vacuolation Clumped Platelets Platelet Comment Polychromasia Poikilocytosis Basophilic Stippling Anisocytosis Tear Drop Cells Ovalocytes Schistocytes PT INR APTT VBG pH VBG pCO2 VBG HCO3 VBG Base Excess Sodium 142.3 Potassium 3.1 L Chloride 104 Carbon Dioxide 28 Anion Gap 10 BUN 27 H Creatinine 1.38 H Est GFR ( Amer) > 60 Est GFR (MDRD) Non-Af 51 L Glucose 131 H POC Glucose 167 H 159 H Lactic Acid Calcium 4.5 L* Ionized Calcium [place] Phosphorus 2.9 Magnesium 1.6 Total Bilirubin Direct Bilirubin Neonat Total Bilirubin Neonat Direct Bilirubin Neonat Indirect Bili AST ALT Alkaline Phosphatase Ammonia Creatine Kinase CK-MB (CK-2) Troponin I NT-Pro-B Natriuret Pep Total Protein Albumin Vitamin D 25-Hydroxy TSH Free T4 Free T3 pg/mL Urine Color Urine Appearance Urine pH Ur Specific [place] Urine Protein Urine Glucose (UA) Urine Ketones Urine Blood Urine Nitrite Urine Nitrite (Reflex) Urine Bilirubin Urine Urobilinogen Ur Leukocyte Esterase Leukocyte Esterase Rfl Urine WBC (Auto) Urine RBC (Auto) Urine WBC (Reflex) Squamous Epi Cells Auto Urine Mucus (Auto) Urine Creatinine Urine Calcium Ur Calcium 24 Hr Calcium/Creat Ratio Urine Ascorbic Acid Time Trough Drawn Vancomycin Trough Influenza A (Rapid) Influenza B (Rapid) Slides for Path Review Blood Type Antibody Screen Crossmatch 11/21/19 11/21/19 11/21/19 03:58 03:58 08:05 WBC 12.1 H RBC 2.73 L Hgb 7.6 L Hct 23.0 L MCV 85 MCH 28.0 MCHC 33.2 RDW 21.6 H Plt Count 338 Lymph % (Auto) Not Reportable [place] % (Auto) Not Reportable Eos % (Auto) Not Reportable Baso % (Auto) Not Reportable Absolute Neuts (auto) Not Reportable Absolute Lymphs (auto) Not Reportable Absolute Monos (auto) Not Reportable Absolute Eos (auto) Not Reportable Absolute Basos (auto) Not Reportable Total Counted 100 Seg Neutrophils % Not Reportable Seg Neuts % (Manual) 88 H Band Neutrophils % 3 Lymphocytes % (Manual) 2 L Monocytes % (Manual) 7 Eosinophils % (Manual) 0 Basophils % (Manual) 0 Metamyelocytes % Myelocytes % Promyelocytes % Abs Neuts (Manual) 11.0 H Abs Lymphs (Manual) 0.2 L Abs Monocytes (Manual) 0.8 Absolute Eos (Manual) 0.0 Abs Basophils (Manual) 0.0 Nucleated RBCs Toxic Granulation Toxic Vacuolation Clumped Platelets Platelet Comment ADEQUATE Polychromasia SLIGHT Poikilocytosis Basophilic Stippling Anisocytosis 3+ Tear Drop Cells Ovalocytes Schistocytes PT INR APTT VBG pH VBG pCO2 VBG HCO3 VBG Base Excess Sodium Potassium Chloride Carbon Dioxide Anion Gap BUN Creatinine Est GFR ( Amer) Est GFR (MDRD) Non-Af Glucose POC Glucose 154 H Lactic Acid Calcium Ionized Calcium [place] 0.63 L Phosphorus Magnesium Total Bilirubin Direct Bilirubin Neonat Total Bilirubin Neonat Direct Bilirubin Neonat Indirect Bili AST ALT Alkaline Phosphatase Ammonia Creatine Kinase CK-MB (CK-2) Troponin I NT-Pro-B Natriuret Pep Total Protein Albumin Vitamin D 25-Hydroxy TSH Free T4 Free T3 pg/mL Urine Color Urine Appearance Urine pH Ur Specific [place] Urine Protein Urine Glucose (UA) Urine Ketones Urine Blood Urine Nitrite Urine Nitrite (Reflex) Urine Bilirubin Urine Urobilinogen Ur Leukocyte Esterase Leukocyte Esterase Rfl Urine WBC (Auto) Urine RBC (Auto) Urine WBC (Reflex) Squamous Epi Cells Auto Urine Mucus (Auto) Urine Creatinine Urine Calcium Ur Calcium 24 Hr Calcium/Creat Ratio Urine Ascorbic Acid Time Trough Drawn Vancomycin Trough Influenza A (Rapid) Influenza B (Rapid) Slides for Path Review Blood Type Antibody Screen Crossmatch 11/21/19 11/21/19 11/21/19 10:53 14:50 15:59 WBC RBC Hgb Hct MCV MCH MCHC RDW Plt Count Lymph % (Auto) [place] % (Auto) Eos % (Auto) Baso % (Auto) Absolute Neuts (auto) Absolute Lymphs (auto) Absolute Monos (auto) Absolute Eos (auto) Absolute Basos (auto) Total Counted Seg Neutrophils % Seg Neuts % (Manual) Band Neutrophils % Lymphocytes % (Manual) Monocytes % (Manual) Eosinophils % (Manual) Basophils % (Manual) Metamyelocytes % Myelocytes % Promyelocytes % Abs Neuts (Manual) Abs Lymphs (Manual) Abs Monocytes (Manual) Absolute Eos (Manual) Abs Basophils (Manual) Nucleated RBCs Toxic Granulation Toxic Vacuolation Clumped Platelets Platelet Comment Polychromasia Poikilocytosis Basophilic Stippling Anisocytosis Tear Drop Cells Ovalocytes Schistocytes PT INR APTT VBG pH VBG pCO2 VBG HCO3 VBG Base Excess Sodium Potassium Chloride Carbon Dioxide Anion Gap BUN Creatinine Est GFR ( Amer) Est GFR (MDRD) Non-Af Glucose POC Glucose 163 H 188 H Lactic Acid Calcium Ionized Calcium [place] 0.73 L Phosphorus Magnesium Total Bilirubin Direct Bilirubin Neonat Total Bilirubin Neonat Direct Bilirubin Neonat Indirect Bili AST ALT Alkaline Phosphatase Ammonia Creatine Kinase CK-MB (CK-2) Troponin I NT-Pro-B Natriuret Pep Total Protein Albumin Vitamin D 25-Hydroxy TSH Free T4 Free T3 pg/mL Urine Color Urine Appearance Urine pH Ur Specific [place] Urine Protein Urine Glucose (UA) Urine Ketones Urine Blood Urine Nitrite Urine Nitrite (Reflex) Urine Bilirubin Urine Urobilinogen Ur Leukocyte Esterase Leukocyte Esterase Rfl Urine WBC (Auto) Urine RBC (Auto) Urine WBC (Reflex) Squamous Epi Cells Auto Urine Mucus (Auto) Urine Creatinine Urine Calcium Ur Calcium 24 Hr Calcium/Creat Ratio Urine Ascorbic Acid Time Trough Drawn Vancomycin Trough Influenza A (Rapid) Influenza B (Rapid) Slides for Path Review Blood Type Antibody Screen Crossmatch 11/21/19 11/22/19 11/22/19 21:08 05:45 05:45 WBC RBC Hgb Hct MCV MCH MCHC RDW Plt Count Lymph % (Auto) [place] % (Auto) Eos % (Auto) Baso % (Auto) Absolute Neuts (auto) Absolute Lymphs (auto) Absolute Monos (auto) Absolute Eos (auto) Absolute Basos (auto) Total Counted Seg Neutrophils % Seg Neuts % (Manual) Band Neutrophils % Lymphocytes % (Manual) Monocytes % (Manual) Eosinophils % (Manual) Basophils % (Manual) Metamyelocytes % Myelocytes % Promyelocytes % Abs Neuts (Manual) Abs Lymphs (Manual) Abs Monocytes (Manual) Absolute Eos (Manual) Abs Basophils (Manual) Nucleated RBCs Toxic Granulation Toxic Vacuolation Clumped Platelets Platelet Comment Polychromasia Poikilocytosis Basophilic Stippling Anisocytosis Tear Drop Cells Ovalocytes Schistocytes PT INR APTT VBG pH VBG pCO2 VBG HCO3 VBG Base Excess Sodium 143.2 Potassium 2.7 L* Chloride 102 Carbon Dioxide 30 Anion Gap 11 BUN 25 H Creatinine 1.05 Est GFR ( Amer) > 60 Est GFR (MDRD) Non-Af > 60 Glucose 107 POC Glucose 151 H Lactic Acid Calcium 5.1 L* Ionized Calcium [place] 0.72 L Phosphorus 2.9 Magnesium 2.0 Total Bilirubin Direct Bilirubin Neonat Total Bilirubin Neonat Direct Bilirubin Neonat Indirect Bili AST ALT Alkaline Phosphatase Ammonia Creatine Kinase CK-MB (CK-2) Troponin I NT-Pro-B Natriuret Pep Total Protein Albumin Vitamin D 25-Hydroxy TSH Free T4 Free T3 pg/mL Urine Color Urine Appearance Urine pH Ur Specific [place] Urine Protein Urine Glucose (UA) Urine Ketones Urine Blood Urine Nitrite Urine Nitrite (Reflex) Urine Bilirubin Urine Urobilinogen Ur Leukocyte Esterase Leukocyte Esterase Rfl Urine WBC (Auto) Urine RBC (Auto) Urine WBC (Reflex) Squamous Epi Cells Auto Urine Mucus (Auto) Urine Creatinine Urine Calcium Ur Calcium 24 Hr Calcium/Creat Ratio Urine Ascorbic Acid Time Trough Drawn Vancomycin Trough Influenza A (Rapid) Influenza B (Rapid) Slides for Path Review Blood Type Antibody Screen Crossmatch 11/22/19 11/22/19 11/22/19 05:45 05:45 08:13 WBC 11.8 H RBC 2.85 L Hgb 8.0 L Hct 24.1 L MCV 85 MCH 28.2 MCHC 33.3 RDW 21.2 H Plt Count 371 Lymph % (Auto) Not Reportable [place] % (Auto) Not Reportable Eos % (Auto) Not Reportable Baso % (Auto) Not Reportable Absolute Neuts (auto) Not Reportable Absolute Lymphs (auto) Not Reportable Absolute Monos (auto) Not Reportable Absolute Eos (auto) Not Reportable Absolute Basos (auto) Not Reportable Total Counted 100 Seg Neutrophils % Not Reportable Seg Neuts % (Manual) 89 H Band Neutrophils % Lymphocytes % (Manual) 7 L Monocytes % (Manual) 4 Eosinophils % (Manual) 0 Basophils % (Manual) 0 Metamyelocytes % Myelocytes % Promyelocytes % Abs Neuts (Manual) 10.5 H Abs Lymphs (Manual) 0.8 Abs Monocytes (Manual) 0.5 Absolute Eos (Manual) 0.0 Abs Basophils (Manual) 0.0 Nucleated RBCs 1 Toxic Granulation Toxic Vacuolation Clumped Platelets Platelet Comment ADEQUATE Polychromasia 2+ Poikilocytosis Basophilic Stippling Anisocytosis 2+ Tear Drop Cells Ovalocytes Schistocytes PT INR APTT VBG pH VBG pCO2 VBG HCO3 VBG Base Excess Sodium Potassium Chloride Carbon Dioxide Anion Gap BUN Creatinine Est GFR ( Amer) Est GFR (MDRD) Non-Af Glucose POC Glucose 106 Lactic Acid Calcium Ionized Calcium [place] Phosphorus Magnesium Total Bilirubin Direct Bilirubin Neonat Total Bilirubin Neonat Direct Bilirubin Neonat Indirect Bili AST ALT Alkaline Phosphatase Ammonia Creatine Kinase CK-MB (CK-2) Troponin I NT-Pro-B Natriuret Pep Total Protein Albumin Vitamin D 25-Hydroxy 16.9 TSH Free T4 Free T3 pg/mL Urine Color Urine Appearance Urine pH Ur Specific [place] Urine Protein Urine Glucose (UA) Urine Ketones Urine Blood Urine Nitrite Urine Nitrite (Reflex) Urine Bilirubin Urine Urobilinogen Ur Leukocyte Esterase Leukocyte Esterase Rfl Urine WBC (Auto) Urine RBC (Auto) Urine WBC (Reflex) Squamous Epi Cells Auto Urine Mucus (Auto) Urine Creatinine Urine Calcium Ur Calcium 24 Hr Calcium/Creat Ratio Urine Ascorbic Acid Time Trough Drawn Vancomycin Trough Influenza A (Rapid) Influenza B (Rapid) Slides for Path Review Blood Type Antibody Screen Crossmatch 11/22/19 11/22/19 11/22/19 11:35 12:35 16:01 WBC RBC Hgb Hct MCV MCH MCHC RDW Plt Count Lymph % (Auto) [place] % (Auto) Eos % (Auto) Baso % (Auto) Absolute Neuts (auto) Absolute Lymphs (auto) Absolute Monos (auto) Absolute Eos (auto) Absolute Basos (auto) Total Counted Seg Neutrophils % Seg Neuts % (Manual) Band Neutrophils % Lymphocytes % (Manual) Monocytes % (Manual) Eosinophils % (Manual) Basophils % (Manual) Metamyelocytes % Myelocytes % Promyelocytes % Abs Neuts (Manual) Abs Lymphs (Manual) Abs Monocytes (Manual) Absolute Eos (Manual) Abs Basophils (Manual) Nucleated RBCs Toxic Granulation Toxic Vacuolation Clumped Platelets Platelet Comment Polychromasia Poikilocytosis Basophilic Stippling Anisocytosis Tear Drop Cells Ovalocytes Schistocytes PT INR APTT VBG pH VBG pCO2 VBG HCO3 VBG Base Excess Sodium Potassium Chloride Carbon Dioxide Anion Gap BUN Creatinine Est GFR ( Amer) Est GFR (MDRD) Non-Af Glucose POC Glucose 93 167 H Lactic Acid Calcium Ionized Calcium [place] 0.89 L Phosphorus Magnesium Total Bilirubin Direct Bilirubin Neonat Total Bilirubin Neonat Direct Bilirubin Neonat Indirect Bili AST ALT Alkaline Phosphatase Ammonia Creatine Kinase CK-MB (CK-2) Troponin I NT-Pro-B Natriuret Pep Total Protein Albumin Vitamin D 25-Hydroxy TSH Free T4 Free T3 pg/mL Urine Color Urine Appearance Urine pH Ur Specific [place] Urine Protein Urine Glucose (UA) Urine Ketones Urine Blood Urine Nitrite Urine Nitrite (Reflex) Urine Bilirubin Urine Urobilinogen Ur Leukocyte Esterase Leukocyte Esterase Rfl Urine WBC (Auto) Urine RBC (Auto) Urine WBC (Reflex) Squamous Epi Cells Auto Urine Mucus (Auto) Urine Creatinine Urine Calcium Ur Calcium 24 Hr Calcium/Creat Ratio Urine Ascorbic Acid Time Trough Drawn Vancomycin Trough Influenza A (Rapid) Influenza B (Rapid) Slides for Path Review Blood Type Antibody Screen Crossmatch 11/22/19 11/23/19 11/23/19 20:56 06:02 06:02 WBC 11.8 H RBC 2.86 L Hgb 8.0 L Hct 24.3 L MCV 85 MCH 27.9 MCHC 32.9 RDW 21.6 H Plt Count 348 Lymph % (Auto) Not Reportable [place] % (Auto) Not Reportable Eos % (Auto) Not Reportable Baso % (Auto) Not Reportable Absolute Neuts (auto) Not Reportable Absolute Lymphs (auto) Not Reportable Absolute Monos (auto) Not Reportable Absolute Eos (auto) Not Reportable Absolute Basos (auto) Not Reportable Total Counted 100 Seg Neutrophils % Not Reportable Seg Neuts % (Manual) 84 H Band Neutrophils % Lymphocytes % (Manual) 11 L Monocytes % (Manual) 5 Eosinophils % (Manual) 0 Basophils % (Manual) 0 Metamyelocytes % Myelocytes % Promyelocytes % Abs Neuts (Manual) 9.9 H Abs Lymphs (Manual) 1.3 Abs Monocytes (Manual) 0.6 Absolute Eos (Manual) 0.0 Abs Basophils (Manual) 0.0 Nucleated RBCs Toxic Granulation SLIGHT Toxic Vacuolation PRESENT Clumped Platelets Platelet Comment ADEQUATE Polychromasia SLIGHT Poikilocytosis Basophilic Stippling Anisocytosis 3+ Tear Drop Cells SLIGHT Ovalocytes SLIGHT Schistocytes PT INR APTT VBG pH VBG pCO2 VBG HCO3 VBG Base Excess Sodium Potassium Chloride Carbon Dioxide Anion Gap BUN Creatinine Est GFR ( Amer) Est GFR (MDRD) Non-Af Glucose POC Glucose 125 H Lactic Acid Calcium Ionized Calcium [place] 0.85 L Phosphorus Magnesium Total Bilirubin Direct Bilirubin Neonat Total Bilirubin Neonat Direct Bilirubin Neonat Indirect Bili AST ALT Alkaline Phosphatase Ammonia Creatine Kinase CK-MB (CK-2) Troponin I NT-Pro-B Natriuret Pep Total Protein Albumin Vitamin D 25-Hydroxy TSH Free T4 Free T3 pg/mL Urine Color Urine Appearance Urine pH Ur Specific [place] Urine Protein Urine Glucose (UA) Urine Ketones Urine Blood Urine Nitrite Urine Nitrite (Reflex) Urine Bilirubin Urine Urobilinogen Ur Leukocyte Esterase Leukocyte Esterase Rfl Urine WBC (Auto) Urine RBC (Auto) Urine WBC (Reflex) Squamous Epi Cells Auto Urine Mucus (Auto) Urine Creatinine Urine Calcium Ur Calcium 24 Hr Calcium/Creat Ratio Urine Ascorbic Acid Time Trough Drawn Vancomycin Trough Influenza A (Rapid) Influenza B (Rapid) Slides for Path Review Blood Type Antibody Screen Crossmatch 11/23/19 11/23/19 11/23/19 06:02 08:22 08:30 WBC RBC Hgb Hct MCV MCH MCHC RDW Plt Count Lymph % (Auto) [place] % (Auto) Eos % (Auto) Baso % (Auto) Absolute Neuts (auto) Absolute Lymphs (auto) Absolute Monos (auto) Absolute Eos (auto) Absolute Basos (auto) Total Counted Seg Neutrophils % Seg Neuts % (Manual) Band Neutrophils % Lymphocytes % (Manual) Monocytes % (Manual) Eosinophils % (Manual) Basophils % (Manual) Metamyelocytes % Myelocytes % Promyelocytes % Abs Neuts (Manual) Abs Lymphs (Manual) Abs Monocytes (Manual) Absolute Eos (Manual) Abs Basophils (Manual) Nucleated RBCs Toxic Granulation Toxic Vacuolation Clumped Platelets Platelet Comment Polychromasia Poikilocytosis Basophilic Stippling Anisocytosis Tear Drop Cells Ovalocytes Schistocytes PT INR APTT VBG pH VBG pCO2 VBG HCO3 VBG Base Excess Sodium 144.9 Potassium 4.1 Chloride 107 Carbon Dioxide 31 H Anion Gap 7 BUN 19 Creatinine 1.03 Est GFR ( Amer) > 60 Est GFR (MDRD) Non-Af > 60 Glucose 79 POC Glucose 88 Lactic Acid Calcium 6.3 L* Ionized Calcium [place] Phosphorus 2.4 L Magnesium 1.7 Total Bilirubin 0.5 Direct Bilirubin 0.2 Neonat Total Bilirubin 0.3 Neonat Direct Bilirubin 0.0 Neonat Indirect Bili 0.3 AST 132 H ALT 21 Alkaline Phosphatase 2165 H Ammonia Creatine Kinase CK-MB (CK-2) Troponin I NT-Pro-B Natriuret Pep Total Protein 5.7 L Albumin 2.9 L Vitamin D 25-Hydroxy TSH Free T4 Free T3 pg/mL Urine Color Urine Appearance Urine pH Ur Specific [place] Urine Protein Urine Glucose (UA) Urine Ketones Urine Blood Urine Nitrite Urine Nitrite (Reflex) Urine Bilirubin Urine Urobilinogen Ur Leukocyte Esterase Leukocyte Esterase Rfl Urine WBC (Auto) Urine RBC (Auto) Urine WBC (Reflex) Squamous Epi Cells Auto Urine Mucus (Auto) Urine Creatinine 29.4 Urine Calcium 1.0 Ur Calcium 24 Hr 27.0 L Calcium/Creat Ratio 34 Urine Ascorbic Acid Time Trough Drawn Vancomycin Trough Influenza A (Rapid) Influenza B (Rapid) Slides for Path Review Blood Type Antibody Screen Crossmatch 11/23/19 11/23/19 11/23/19 11:56 16:45 17:38 WBC RBC Hgb Hct MCV MCH MCHC RDW Plt Count Lymph % (Auto) [place] % (Auto) Eos % (Auto) Baso % (Auto) Absolute Neuts (auto) Absolute Lymphs (auto) Absolute Monos (auto) Absolute Eos (auto) Absolute Basos (auto) Total Counted Seg Neutrophils % Seg Neuts % (Manual) Band Neutrophils % Lymphocytes % (Manual) Monocytes % (Manual) Eosinophils % (Manual) Basophils % (Manual) Metamyelocytes % Myelocytes % Promyelocytes % Abs Neuts (Manual) Abs Lymphs (Manual) Abs Monocytes (Manual) Absolute Eos (Manual) Abs Basophils (Manual) Nucleated RBCs Toxic Granulation Toxic Vacuolation Clumped Platelets Platelet Comment Polychromasia Poikilocytosis Basophilic Stippling Anisocytosis Tear Drop Cells Ovalocytes Schistocytes PT INR APTT VBG pH VBG pCO2 VBG HCO3 VBG Base Excess Sodium Potassium Chloride Carbon Dioxide Anion Gap BUN Creatinine Est GFR ( Amer) Est GFR (MDRD) Non-Af Glucose POC Glucose 102 154 H Lactic Acid Calcium Ionized Calcium [place] 0.90 L Phosphorus Magnesium Total Bilirubin Direct Bilirubin Neonat Total Bilirubin Neonat Direct Bilirubin Neonat Indirect Bili AST ALT Alkaline Phosphatase Ammonia Creatine Kinase CK-MB (CK-2) Troponin I NT-Pro-B Natriuret Pep Total Protein Albumin Vitamin D 25-Hydroxy TSH Free T4 Free T3 pg/mL Urine Color Urine Appearance Urine pH Ur Specific [place] Urine Protein Urine Glucose (UA) Urine Ketones Urine Blood Urine Nitrite Urine Nitrite (Reflex) Urine Bilirubin Urine Urobilinogen Ur Leukocyte Esterase Leukocyte Esterase Rfl Urine WBC (Auto) Urine RBC (Auto) Urine WBC (Reflex) Squamous Epi Cells Auto Urine Mucus (Auto) Urine Creatinine Urine Calcium Ur Calcium 24 Hr Calcium/Creat Ratio Urine Ascorbic Acid Time Trough Drawn Vancomycin Trough Influenza A (Rapid) Influenza B (Rapid) Slides for Path Review Blood Type Antibody Screen Crossmatch 11/23/19 11/24/19 11/24/19 20:39 04:05 04:05 WBC 11.1 H RBC 2.87 L Hgb 8.0 L Hct 24.6 L MCV 86 MCH 28.0 MCHC 32.7 RDW 21.7 H Plt Count 302 Lymph % (Auto) Not Reportable [place] % (Auto) Not Reportable Eos % (Auto) Not Reportable Baso % (Auto) Not Reportable Absolute Neuts (auto) Not Reportable Absolute Lymphs (auto) Not Reportable Absolute Monos (auto) Not Reportable Absolute Eos (auto) Not Reportable Absolute Basos (auto) Not Reportable Total Counted 100 Seg Neutrophils % Not Reportable Seg Neuts % (Manual) 84 H Band Neutrophils % 1 L Lymphocytes % (Manual) 4 L Monocytes % (Manual) 3 Eosinophils % (Manual) 2 Basophils % (Manual) 0 Metamyelocytes % Myelocytes % 5 H Promyelocytes % 1 H Abs Neuts (Manual) 10.1 H Abs Lymphs (Manual) 0.4 L Abs Monocytes (Manual) 0.3 Absolute Eos (Manual) 0.2 Abs Basophils (Manual) 0.0 Nucleated RBCs Toxic Granulation SLIGHT Toxic Vacuolation Clumped Platelets Platelet Comment ADEQUATE Polychromasia SLIGHT Poikilocytosis Basophilic Stippling Anisocytosis 3+ Tear Drop Cells SLIGHT Ovalocytes SLIGHT Schistocytes PT INR APTT VBG pH VBG pCO2 VBG HCO3 VBG Base Excess Sodium Potassium Chloride Carbon Dioxide Anion Gap BUN Creatinine Est GFR ( Amer) Est GFR (MDRD) Non-Af Glucose POC Glucose 106 Lactic Acid Calcium Ionized Calcium [place] 0.94 L Phosphorus Magnesium Total Bilirubin Direct Bilirubin Neonat Total Bilirubin Neonat Direct Bilirubin Neonat Indirect Bili AST ALT Alkaline Phosphatase Ammonia Creatine Kinase CK-MB (CK-2) Troponin I NT-Pro-B Natriuret Pep Total Protein Albumin Vitamin D 25-Hydroxy TSH Free T4 Free T3 pg/mL Urine Color Urine Appearance Urine pH Ur Specific [place] Urine Protein Urine Glucose (UA) Urine Ketones Urine Blood Urine Nitrite Urine Nitrite (Reflex) Urine Bilirubin Urine Urobilinogen Ur Leukocyte Esterase Leukocyte Esterase Rfl Urine WBC (Auto) Urine RBC (Auto) Urine WBC (Reflex) Squamous Epi Cells Auto Urine Mucus (Auto) Urine Creatinine Urine Calcium Ur Calcium 24 Hr Calcium/Creat Ratio Urine Ascorbic Acid Time Trough Drawn Vancomycin Trough Influenza A (Rapid) Influenza B (Rapid) Slides for Path Review PATHOLOGIST REVIEWED Blood Type Antibody Screen Crossmatch 11/24/19 11/24/19 11/24/19 04:05 07:54 11:50 WBC RBC Hgb Hct MCV MCH MCHC RDW Plt Count Lymph % (Auto) [place] % (Auto) Eos % (Auto) Baso % (Auto) Absolute Neuts (auto) Absolute Lymphs (auto) Absolute Monos (auto) Absolute Eos (auto) Absolute Basos (auto) Total Counted Seg Neutrophils % Seg Neuts % (Manual) Band Neutrophils % Lymphocytes % (Manual) Monocytes % (Manual) Eosinophils % (Manual) Basophils % (Manual) Metamyelocytes % Myelocytes % Promyelocytes % Abs Neuts (Manual) Abs Lymphs (Manual) Abs Monocytes (Manual) Absolute Eos (Manual) Abs Basophils (Manual) Nucleated RBCs Toxic Granulation Toxic Vacuolation Clumped Platelets Platelet Comment Polychromasia Poikilocytosis Basophilic Stippling Anisocytosis Tear Drop Cells Ovalocytes Schistocytes PT INR APTT VBG pH VBG pCO2 VBG HCO3 VBG Base Excess Sodium 144.6 Potassium 6.3 H* D Chloride 111 H Carbon Dioxide 28 Anion Gap 6 BUN 16 Creatinine 1.08 Est GFR ( Amer) > 60 Est GFR (MDRD) Non-Af > 60 Glucose 82 POC Glucose 92 80 Lactic Acid Calcium 7.0 L* Ionized Calcium [place]ola Phosphorus Magnesium Total Bilirubin 0.6 Direct Bilirubin 0.2 Neonat Total Bilirubin 0.3 Neonat Direct Bilirubin 0.0 Neonat Indirect Bili 0.3 AST 123 H ALT 21 Alkaline Phosphatase 2402 H Ammonia Creatine Kinase CK-MB (CK-2) Troponin I NT-Pro-B Natriuret Pep Total Protein 5.7 L Albumin 3.0 L Vitamin D 25-Hydroxy TSH Free T4 Free T3 pg/mL Urine Color Urine Appearance Urine pH Ur Specific [place] Urine Protein Urine Glucose (UA) Urine Ketones Urine Blood Urine Nitrite Urine Nitrite (Reflex) Urine Bilirubin Urine Urobilinogen Ur Leukocyte Esterase Leukocyte Esterase Rfl Urine WBC (Auto) Urine RBC (Auto) Urine WBC (Reflex) Squamous Epi Cells Auto Urine Mucus (Auto) Urine Creatinine Urine Calcium Ur Calcium 24 Hr Calcium/Creat Ratio Urine Ascorbic Acid Time Trough Drawn Vancomycin Trough Influenza A (Rapid) Influenza B (Rapid) Slides for Path Review Blood Type Antibody Screen Crossmatch 11/24/19 11/24/19 11/25/19 16:26 22:00 08:25 WBC RBC Hgb Hct MCV MCH MCHC RDW Plt Count Lymph % (Auto) [place] % (Auto) Eos % (Auto) Baso % (Auto) Absolute Neuts (auto) Absolute Lymphs (auto) Absolute Monos (auto) Absolute Eos (auto) Absolute Basos (auto) Total Counted Seg Neutrophils % Seg Neuts % (Manual) Band Neutrophils % Lymphocytes % (Manual) Monocytes % (Manual) Eosinophils % (Manual) Basophils % (Manual) Metamyelocytes % Myelocytes % Promyelocytes % Abs Neuts (Manual) Abs Lymphs (Manual) Abs Monocytes (Manual) Absolute Eos (Manual) Abs Basophils (Manual) Nucleated RBCs Toxic Granulation Toxic Vacuolation Clumped Platelets Platelet Comment Polychromasia Poikilocytosis Basophilic Stippling Anisocytosis Tear Drop Cells Ovalocytes Schistocytes PT INR APTT VBG pH VBG pCO2 VBG HCO3 VBG Base Excess Sodium Potassium Chloride Carbon Dioxide Anion Gap BUN Creatinine Est GFR ( Amer) Est GFR (MDRD) Non-Af Glucose POC Glucose 114 H 98 105 Lactic Acid Calcium Ionized Calcium [place] Phosphorus Magnesium Total Bilirubin Direct Bilirubin Neonat Total Bilirubin Neonat Direct Bilirubin Neonat Indirect Bili AST ALT Alkaline Phosphatase Ammonia Creatine Kinase CK-MB (CK-2) Troponin I NT-Pro-B Natriuret Pep Total Protein Albumin Vitamin D 25-Hydroxy TSH Free T4 Free T3 pg/mL Urine Color Urine Appearance Urine pH Ur Specific [place] Urine Protein Urine Glucose (UA) Urine Ketones Urine Blood Urine Nitrite Urine Nitrite (Reflex) Urine Bilirubin Urine Urobilinogen Ur Leukocyte Esterase Leukocyte Esterase Rfl Urine WBC (Auto) Urine RBC (Auto) Urine WBC (Reflex) Squamous Epi Cells Auto Urine Mucus (Auto) Urine Creatinine Urine Calcium Ur Calcium 24 Hr Calcium/Creat Ratio Urine Ascorbic Acid Time Trough Drawn Vancomycin Trough Influenza A (Rapid) Influenza B (Rapid) Slides for Path Review Blood Type Antibody Screen Crossmatch 11/25/19 11/25/19 11/25/19 12:36 17:03 18:30 WBC RBC Hgb Hct MCV MCH MCHC RDW Plt Count Lymph % (Auto) [place] % (Auto) Eos % (Auto) Baso % (Auto) Absolute Neuts (auto) Absolute Lymphs (auto) Absolute Monos (auto) Absolute Eos (auto) Absolute Basos (auto) Total Counted Seg Neutrophils % Seg Neuts % (Manual) Band Neutrophils % Lymphocytes % (Manual) Monocytes % (Manual) Eosinophils % (Manual) Basophils % (Manual) Metamyelocytes % Myelocytes % Promyelocytes % Abs Neuts (Manual) Abs Lymphs (Manual) Abs Monocytes (Manual) Absolute Eos (Manual) Abs Basophils (Manual) Nucleated RBCs Toxic Granulation Toxic Vacuolation Clumped Platelets Platelet Comment Polychromasia Poikilocytosis Basophilic Stippling Anisocytosis Tear Drop Cells Ovalocytes Schistocytes PT INR APTT VBG pH VBG pCO2 VBG HCO3 VBG Base Excess Sodium 139.1 Potassium 6.3 H* Chloride 106 Carbon Dioxide 21 L Anion Gap 12 BUN 13 Creatinine 1.19 Est GFR ( Amer) > 60 Est GFR (MDRD) Non-Af > 60 Glucose 143 H POC Glucose 106 129 H Lactic Acid Calcium 6.6 L* Ionized Calcium [place] Phosphorus Magnesium Total Bilirubin Direct Bilirubin Neonat Total Bilirubin Neonat Direct Bilirubin Neonat Indirect Bili AST ALT Alkaline Phosphatase Ammonia Creatine Kinase CK-MB (CK-2) Troponin I NT-Pro-B Natriuret Pep Total Protein Albumin Vitamin D 25-Hydroxy TSH Free T4 Free T3 pg/mL Urine Color Urine Appearance Urine pH Ur Specific [place] Urine Protein Urine Glucose (UA) Urine Ketones Urine Blood Urine Nitrite Urine Nitrite (Reflex) Urine Bilirubin Urine Urobilinogen Ur Leukocyte Esterase Leukocyte Esterase Rfl Urine WBC (Auto) Urine RBC (Auto) Urine WBC (Reflex) Squamous Epi Cells Auto Urine Mucus (Auto) Urine Creatinine Urine Calcium Ur Calcium 24 Hr Calcium/Creat Ratio Urine Ascorbic Acid Time Trough Drawn Vancomycin Trough Influenza A (Rapid) Influenza B (Rapid) Slides for Path Review Blood Type Antibody Screen Crossmatch 11/25/19 11/25/19 11/25/19 20:05 20:05 21:41 WBC RBC Hgb Hct MCV MCH MCHC RDW Plt Count Lymph % (Auto) [place] % (Auto) Eos % (Auto) Baso % (Auto) Absolute Neuts (auto) Absolute Lymphs (auto) Absolute Monos (auto) Absolute Eos (auto) Absolute Basos (auto) Total Counted Seg Neutrophils % Seg Neuts % (Manual) Band Neutrophils % Lymphocytes % (Manual) Monocytes % (Manual) Eosinophils % (Manual) Basophils % (Manual) Metamyelocytes % Myelocytes % Promyelocytes % Abs Neuts (Manual) Abs Lymphs (Manual) Abs Monocytes (Manual) Absolute Eos (Manual) Abs Basophils (Manual) Nucleated RBCs Toxic Granulation Toxic Vacuolation Clumped Platelets Platelet Comment Polychromasia Poikilocytosis Basophilic Stippling Anisocytosis Tear Drop Cells Ovalocytes Schistocytes PT INR APTT VBG pH VBG pCO2 VBG HCO3 VBG Base Excess Sodium Potassium Chloride Carbon Dioxide Anion Gap BUN Creatinine Est GFR ( Amer) Est GFR (MDRD) Non-Af Glucose POC Glucose 114 H Lactic Acid Calcium Ionized Calcium [place] 0.96 L Phosphorus Magnesium Total Bilirubin Direct Bilirubin Neonat Total Bilirubin Neonat Direct Bilirubin Neonat Indirect Bili AST ALT Alkaline Phosphatase Ammonia Creatine Kinase CK-MB (CK-2) Troponin I NT-Pro-B Natriuret Pep Total Protein Albumin 3.3 L Vitamin D 25-Hydroxy TSH Free T4 Free T3 pg/mL Urine Color Urine Appearance Urine pH Ur Specific [place] Urine Protein Urine Glucose (UA) Urine Ketones Urine Blood Urine Nitrite Urine Nitrite (Reflex) Urine Bilirubin Urine Urobilinogen Ur Leukocyte Esterase Leukocyte Esterase Rfl Urine WBC (Auto) Urine RBC (Auto) Urine WBC (Reflex) Squamous Epi Cells Auto Urine Mucus (Auto) Urine Creatinine Urine Calcium Ur Calcium 24 Hr Calcium/Creat Ratio Urine Ascorbic Acid Time Trough Drawn Vancomycin Trough Influenza A (Rapid) Influenza B (Rapid) Slides for Path Review Blood Type Antibody Screen Crossmatch 11/25/19 11/26/19 11/26/19 23:30 05:30 05:30 WBC 10.2 RBC 2.61 L Hgb 7.4 L Hct 22.3 L MCV 86 MCH 28.3 MCHC 33.0 RDW 22.1 H Plt Count 247 Lymph % (Auto) Not Reportable [place] % (Auto) Not Reportable Eos % (Auto) Not Reportable Baso % (Auto) Not Reportable Absolute Neuts (auto) Not Reportable Absolute Lymphs (auto) Not Reportable Absolute Monos (auto) Not Reportable Absolute Eos (auto) Not Reportable Absolute Basos (auto) Not Reportable Total Counted 100 Seg Neutrophils % Not Reportable Seg Neuts % (Manual) 76 Band Neutrophils % 5 Lymphocytes % (Manual) 12 L Monocytes % (Manual) 6 Eosinophils % (Manual) 0 Basophils % (Manual) 1 Metamyelocytes % Myelocytes % Promyelocytes % Abs Neuts (Manual) 8.3 H Abs Lymphs (Manual) 1.2 Abs Monocytes (Manual) 0.6 Absolute Eos (Manual) 0.0 Abs Basophils (Manual) 0.1 Nucleated RBCs Toxic Granulation 1+ Toxic Vacuolation PRESENT Clumped Platelets Platelet Comment ADEQUATE Polychromasia SLIGHT Poikilocytosis 1+ Basophilic Stippling Anisocytosis 3+ Tear Drop Cells SLIGHT Ovalocytes SLIGHT Schistocytes PT INR APTT VBG pH VBG pCO2 VBG HCO3 VBG Base Excess Sodium 139.6 Potassium 5.7 H 5.4 H Chloride 111 H Carbon Dioxide 22 Anion Gap 7 BUN 10 Creatinine 1.18 Est GFR ( Amer) > 60 Est GFR (MDRD) Non-Af > 60 Glucose 72 L POC Glucose Lactic Acid Calcium 6.8 L* Ionized Calcium [place] Phosphorus Magnesium Total Bilirubin 0.5 Direct Bilirubin 0.2 Neonat Total Bilirubin 0.3 Neonat Direct Bilirubin 0.0 Neonat Indirect Bili 0.3 AST 72 H ALT 19 Alkaline Phosphatase 2331 H Ammonia Creatine Kinase CK-MB (CK-2) Troponin I NT-Pro-B Natriuret Pep Total Protein 5.7 L Albumin 3.0 L Vitamin D 25-Hydroxy TSH Free T4 Free T3 pg/mL Urine Color Urine Appearance Urine pH Ur Specific [place] Urine Protein Urine Glucose (UA) Urine Ketones Urine Blood Urine Nitrite Urine Nitrite (Reflex) Urine Bilirubin Urine Urobilinogen Ur Leukocyte Esterase Leukocyte Esterase Rfl Urine WBC (Auto) Urine RBC (Auto) Urine WBC (Reflex) Squamous Epi Cells Auto Urine Mucus (Auto) Urine Creatinine Urine Calcium Ur Calcium 24 Hr Calcium/Creat Ratio Urine Ascorbic Acid Time Trough Drawn Vancomycin Trough Influenza A (Rapid) Influenza B (Rapid) Slides for Path Review Blood Type Antibody Screen Crossmatch 11/26/19 11/26/19 11/26/19 08:01 08:08 11:54 WBC RBC Hgb Hct MCV MCH MCHC RDW Plt Count Lymph % (Auto) [place] % (Auto) Eos % (Auto) Baso % (Auto) Absolute Neuts (auto) Absolute Lymphs (auto) Absolute Monos (auto) Absolute Eos (auto) Absolute Basos (auto) Total Counted Seg Neutrophils % Seg Neuts % (Manual) Band Neutrophils % Lymphocytes % (Manual) Monocytes % (Manual) Eosinophils % (Manual) Basophils % (Manual) Metamyelocytes % Myelocytes % Promyelocytes % Abs Neuts (Manual) Abs Lymphs (Manual) Abs Monocytes (Manual) Absolute Eos (Manual) Abs Basophils (Manual) Nucleated RBCs Toxic Granulation Toxic Vacuolation Clumped Platelets Platelet Comment Polychromasia Poikilocytosis Basophilic Stippling Anisocytosis Tear Drop Cells Ovalocytes Schistocytes PT INR APTT VBG pH VBG pCO2 VBG HCO3 VBG Base Excess Sodium Potassium Chloride Carbon Dioxide Anion Gap BUN Creatinine Est GFR ( Amer) Est GFR (MDRD) Non-Af Glucose POC Glucose 78 133 H Lactic Acid Calcium Ionized Calcium [place] Phosphorus Magnesium Total Bilirubin Direct Bilirubin Neonat Total Bilirubin Neonat Direct Bilirubin Neonat Indirect Bili AST ALT Alkaline Phosphatase Ammonia Creatine Kinase CK-MB (CK-2) Troponin I NT-Pro-B Natriuret Pep Total Protein Albumin Vitamin D 25-Hydroxy TSH Free T4 Free T3 pg/mL Urine Color Urine Appearance Urine pH Ur Specific [place] Urine Protein Urine Glucose (UA) Urine Ketones Urine Blood Urine Nitrite Urine Nitrite (Reflex) Urine Bilirubin Urine Urobilinogen Ur Leukocyte Esterase Leukocyte Esterase Rfl Urine WBC (Auto) Urine RBC (Auto) Urine WBC (Reflex) Squamous Epi Cells Auto Urine Mucus (Auto) Urine Creatinine Urine Calcium Ur Calcium 24 Hr Calcium/Creat Ratio Urine Ascorbic Acid Time Trough Drawn Vancomycin Trough Influenza A (Rapid) Influenza B (Rapid) Slides for Path Review Blood Type O POSITIVE Antibody Screen NEGATIVE Crossmatch See Detail 11/26/19 11/26/19 11/26/19 16:55 21:09 23:49 WBC 9.5 RBC 3.56 L Hgb 10.2 L D Hct 30.4 L MCV 86 MCH 28.7 MCHC 33.6 RDW 20.3 H Plt Count 225 Lymph % (Auto) [place] % (Auto) Eos % (Auto) Baso % (Auto) Absolute Neuts (auto) Absolute Lymphs (auto) Absolute Monos (auto) Absolute Eos (auto) Absolute Basos (auto) Total Counted Seg Neutrophils % Seg Neuts % (Manual) Band Neutrophils % Lymphocytes % (Manual) Monocytes % (Manual) Eosinophils % (Manual) Basophils % (Manual) Metamyelocytes % Myelocytes % Promyelocytes % Abs Neuts (Manual) Abs Lymphs (Manual) Abs Monocytes (Manual) Absolute Eos (Manual) Abs Basophils (Manual) Nucleated RBCs Toxic Granulation Toxic Vacuolation Clumped Platelets Platelet Comment Polychromasia Poikilocytosis Basophilic Stippling Anisocytosis Tear Drop Cells Ovalocytes Schistocytes PT INR APTT VBG pH VBG pCO2 VBG HCO3 VBG Base Excess Sodium Potassium Chloride Carbon Dioxide Anion Gap BUN Creatinine Est GFR ( Amer) Est GFR (MDRD) Non-Af Glucose POC Glucose 123 H 122 H Lactic Acid Calcium Ionized Calcium [place] Phosphorus Magnesium Total Bilirubin Direct Bilirubin Neonat Total Bilirubin Neonat Direct Bilirubin Neonat Indirect Bili AST ALT Alkaline Phosphatase Ammonia Creatine Kinase CK-MB (CK-2) Troponin I NT-Pro-B Natriuret Pep Total Protein Albumin Vitamin D 25-Hydroxy TSH Free T4 Free T3 pg/mL Urine Color Urine Appearance Urine pH Ur Specific [place] Urine Protein Urine Glucose (UA) Urine Ketones Urine Blood Urine Nitrite Urine Nitrite (Reflex) Urine Bilirubin Urine Urobilinogen Ur Leukocyte Esterase Leukocyte Esterase Rfl Urine WBC (Auto) Urine RBC (Auto) Urine WBC (Reflex) Squamous Epi Cells Auto Urine Mucus (Auto) Urine Creatinine Urine Calcium Ur Calcium 24 Hr Calcium/Creat Ratio Urine Ascorbic Acid Time Trough Drawn Vancomycin Trough Influenza A (Rapid) Influenza B (Rapid) Slides for Path Review Blood Type Antibody Screen Crossmatch 11/27/19 11/27/19 11/27/19 07:39 07:45 12:02 WBC RBC Hgb Hct MCV MCH MCHC RDW Plt Count Lymph % (Auto) [place] % (Auto) Eos % (Auto) Baso % (Auto) Absolute Neuts (auto) Absolute Lymphs (auto) Absolute Monos (auto) Absolute Eos (auto) Absolute Basos (auto) Total Counted Seg Neutrophils % Seg Neuts % (Manual) Band Neutrophils % Lymphocytes % (Manual) Monocytes % (Manual) Eosinophils % (Manual) Basophils % (Manual) Metamyelocytes % Myelocytes % Promyelocytes % Abs Neuts (Manual) Abs Lymphs (Manual) Abs Monocytes (Manual) Absolute Eos (Manual) Abs Basophils (Manual) Nucleated RBCs Toxic Granulation Toxic Vacuolation Clumped Platelets Platelet Comment Polychromasia Poikilocytosis Basophilic Stippling Anisocytosis Tear Drop Cells Ovalocytes Schistocytes PT INR APTT VBG pH VBG pCO2 VBG HCO3 VBG Base Excess Sodium 139.5 Potassium 4.7 Chloride 108 H Carbon Dioxide 21 L Anion Gap 11 BUN 9 Creatinine 1.09 Est GFR ( Amer) > 60 Est GFR (MDRD) Non-Af > 60 Glucose 76 POC Glucose 85 133 H Lactic Acid Calcium 6.1 L* Ionized Calcium [place] Phosphorus Magnesium Total Bilirubin Direct Bilirubin Neonat Total Bilirubin Neonat Direct Bilirubin Neonat Indirect Bili AST ALT Alkaline Phosphatase Ammonia Creatine Kinase CK-MB (CK-2) Troponin I NT-Pro-B Natriuret Pep Total Protein Albumin Vitamin D 25-Hydroxy TSH Free T4 Free T3 pg/mL Urine Color Urine Appearance Urine pH Ur Specific [place] Urine Protein Urine Glucose (UA) Urine Ketones Urine Blood Urine Nitrite Urine Nitrite (Reflex) Urine Bilirubin Urine Urobilinogen Ur Leukocyte Esterase Leukocyte Esterase Rfl Urine WBC (Auto) Urine RBC (Auto) Urine WBC (Reflex) Squamous Epi Cells Auto Urine Mucus (Auto) Urine Creatinine Urine Calcium Ur Calcium 24 Hr Calcium/Creat Ratio Urine Ascorbic Acid Time Trough Drawn Vancomycin Trough Influenza A (Rapid) Influenza B (Rapid) Slides for Path Review Blood Type Antibody Screen Crossmatch 11/27/19 11/27/19 11/28/19 16:17 21:31 07:28 WBC RBC Hgb Hct MCV MCH MCHC RDW Plt Count Lymph % (Auto) [place] % (Auto) Eos % (Auto) Baso % (Auto) Absolute Neuts (auto) Absolute Lymphs (auto) Absolute Monos (auto) Absolute Eos (auto) Absolute Basos (auto) Total Counted Seg Neutrophils % Seg Neuts % (Manual) Band Neutrophils % Lymphocytes % (Manual) Monocytes % (Manual) Eosinophils % (Manual) Basophils % (Manual) Metamyelocytes % Myelocytes % Promyelocytes % Abs Neuts (Manual) Abs Lymphs (Manual) Abs Monocytes (Manual) Absolute Eos (Manual) Abs Basophils (Manual) Nucleated RBCs Toxic Granulation Toxic Vacuolation Clumped Platelets Platelet Comment Polychromasia Poikilocytosis Basophilic Stippling Anisocytosis Tear Drop Cells Ovalocytes Schistocytes PT INR APTT VBG pH VBG pCO2 VBG HCO3 VBG Base Excess Sodium Potassium Chloride Carbon Dioxide Anion Gap BUN Creatinine Est GFR ( Amer) Est GFR (MDRD) Non-Af Glucose POC Glucose 121 H 115 H 74 Lactic Acid Calcium Ionized Calcium [place] Phosphorus Magnesium Total Bilirubin Direct Bilirubin Neonat Total Bilirubin Neonat Direct Bilirubin Neonat Indirect Bili AST ALT Alkaline Phosphatase Ammonia Creatine Kinase CK-MB (CK-2) Troponin I NT-Pro-B Natriuret Pep Total Protein Albumin Vitamin D 25-Hydroxy TSH Free T4 Free T3 pg/mL Urine Color Urine Appearance Urine pH Ur Specific [place] Urine Protein Urine Glucose (UA) Urine Ketones Urine Blood Urine Nitrite Urine Nitrite (Reflex) Urine Bilirubin Urine Urobilinogen Ur Leukocyte Esterase Leukocyte Esterase Rfl Urine WBC (Auto) Urine RBC (Auto) Urine WBC (Reflex) Squamous Epi Cells Auto Urine Mucus (Auto) Urine Creatinine Urine Calcium Ur Calcium 24 Hr Calcium/Creat Ratio Urine Ascorbic Acid Time Trough Drawn Vancomycin Trough Influenza A (Rapid) Influenza B (Rapid) Slides for Path Review Blood Type Antibody Screen Crossmatch 11/28/19 11/28/19 11/28/19 11:31 13:45 13:45 WBC 9.4 RBC 3.84 L Hgb 10.8 L Hct 32.6 L MCV 85 MCH 28.2 MCHC 33.3 RDW 20.1 H Plt Count 218 Lymph % (Auto) Not Reportable [place] % (Auto) Not Reportable Eos % (Auto) Not Reportable Baso % (Auto) Not Reportable Absolute Neuts (auto) Not Reportable Absolute Lymphs (auto) Not Reportable Absolute Monos (auto) Not Reportable Absolute Eos (auto) Not Reportable Absolute Basos (auto) Not Reportable Total Counted 100 Seg Neutrophils % Not Reportable Seg Neuts % (Manual) 90 H Band Neutrophils % 1 L Lymphocytes % (Manual) 6 L Monocytes % (Manual) 2 L Eosinophils % (Manual) 0 Basophils % (Manual) 0 Metamyelocytes % 1 Myelocytes % Promyelocytes % Abs Neuts (Manual) 8.6 H Abs Lymphs (Manual) 0.6 Abs Monocytes (Manual) 0.2 Absolute Eos (Manual) 0.0 Abs Basophils (Manual) 0.0 Nucleated RBCs Toxic Granulation Toxic Vacuolation Clumped Platelets PRESENT Platelet Comment ADEQUATE Polychromasia Poikilocytosis Basophilic Stippling Anisocytosis Tear Drop Cells Ovalocytes Schistocytes PT INR APTT VBG pH VBG pCO2 VBG HCO3 VBG Base Excess Sodium 139.6 Potassium 4.7 Chloride 107 Carbon Dioxide 21 L Anion Gap 12 BUN 10 Creatinine 1.12 Est GFR ( Amer) > 60 Est GFR (MDRD) Non-Af > 60 Glucose 135 H POC Glucose 130 H Lactic Acid Calcium 6.5 L* Ionized Calcium [place] Phosphorus Magnesium Total Bilirubin 0.4 Direct Bilirubin 0.3 Neonat Total Bilirubin 0.1 Neonat Direct Bilirubin 0.0 Neonat Indirect Bili 0.1 AST 45 ALT 18 Alkaline Phosphatase 2741 H Ammonia Creatine Kinase CK-MB (CK-2) Troponin I NT-Pro-B Natriuret Pep Total Protein 6.5 Albumin 3.4 L Vitamin D 25-Hydroxy TSH Free T4 Free T3 pg/mL Urine Color Urine Appearance Urine pH Ur Specific [place] Urine Protein Urine Glucose (UA) Urine Ketones Urine Blood Urine Nitrite Urine Nitrite (Reflex) Urine Bilirubin Urine Urobilinogen Ur Leukocyte Esterase Leukocyte Esterase Rfl Urine WBC (Auto) Urine RBC (Auto) Urine WBC (Reflex) Squamous Epi Cells Auto Urine Mucus (Auto) Urine Creatinine Urine Calcium Ur Calcium 24 Hr Calcium/Creat Ratio Urine Ascorbic Acid Time Trough Drawn Vancomycin Trough Influenza A (Rapid) Influenza B (Rapid) Slides for Path Review Blood Type Antibody Screen Crossmatch 11/28/19 11/28/19 14:15 16:07 WBC RBC Hgb Hct MCV MCH MCHC RDW Plt Count Lymph % (Auto) [place] % (Auto) Eos % (Auto) Baso % (Auto) Absolute Neuts (auto) Absolute Lymphs (auto) Absolute Monos (auto) Absolute Eos (auto) Absolute Basos (auto) Total Counted Seg Neutrophils % Seg Neuts % (Manual) Band Neutrophils % Lymphocytes % (Manual) Monocytes % (Manual) Eosinophils % (Manual) Basophils % (Manual) Metamyelocytes % Myelocytes % Promyelocytes % Abs Neuts (Manual) Abs Lymphs (Manual) Abs Monocytes (Manual) Absolute Eos (Manual) Abs Basophils (Manual) Nucleated RBCs Toxic Granulation Toxic Vacuolation Clumped Platelets Platelet Comment Polychromasia Poikilocytosis Basophilic Stippling Anisocytosis Tear Drop Cells Ovalocytes Schistocytes PT INR APTT VBG pH VBG pCO2 VBG HCO3 VBG Base Excess Sodium Potassium Chloride Carbon Dioxide Anion Gap BUN Creatinine Est GFR ( Amer) Est GFR (MDRD) Non-Af Glucose POC Glucose 148 H Lactic Acid Calcium Ionized Calcium [place] 0.87 L Phosphorus Magnesium Total Bilirubin Direct Bilirubin Neonat Total Bilirubin Neonat Direct Bilirubin Neonat Indirect Bili AST ALT Alkaline Phosphatase Ammonia Creatine Kinase CK-MB (CK-2) Troponin I NT-Pro-B Natriuret Pep Total Protein Albumin Vitamin D 25-Hydroxy TSH Free T4 Free T3 pg/mL Urine Color Urine Appearance Urine pH Ur Specific [place] Urine Protein Urine Glucose (UA) Urine Ketones Urine Blood Urine Nitrite Urine Nitrite (Reflex) Urine Bilirubin Urine Urobilinogen Ur Leukocyte Esterase Leukocyte Esterase Rfl Urine WBC (Auto) Urine RBC (Auto) Urine WBC (Reflex) Squamous Epi Cells Auto Urine Mucus (Auto) Urine Creatinine Urine Calcium Ur Calcium 24 Hr Calcium/Creat Ratio Urine Ascorbic Acid Time Trough Drawn Vancomycin Trough Influenza A (Rapid) Influenza B (Rapid) Slides for Path Review Blood Type Antibody Screen Crossmatch Cervical Spine CT 11/17/19 00:00 IMPRESSION: MULTIPLE SCLEROTIC LESIONS IN THE VERTEBRAE CONSISTENT WITH BONY METASTASES. NO ACUTE FINDINGS IN THE CERVICAL SPINE. Head CT 11/17/19 00:00 IMPRESSION: SURGICAL CHANGES IN THE RIGHT FRONTAL LOBE WITH MILD ENCEPHALOMALACIA. MILD CHRONIC CHANGES OF ATROPHY AND MICROVASCULAR ISCHEMIA. NO ACUTE PROCESS. EVIDENCE OF ACUTE STROKE: NO. Chest X-Ray 11/17/19 12:54 IMPRESSION: LEFT LOWER LOBE INFILTRATE SUSPICIOUS FOR PNEUMONIA. Chest/Abdomen CTA 11/17/19 14:00 IMPRESSION: 1. NORMAL CTA OF THE CHEST. NO PULMONARY EMBOLI. 2. CARDIOMEGALY WITH BILATERAL PLEURAL EFFUSIONS AND COMPRESSIVE ATELECTASIS IN THE LUNG BASES. HAZY GROUND-GLASS OPACITIES THROUGHOUT BOTH LUNGS LIKELY REPRESENTS EARLY PULMONARY EDEMA. 3. PERICARDIAL EFFUSION. 4. EXTENSIVE SCLEROTIC BONY METASTASES. Chest X-Ray 11/18/19 06:00 IMPRESSION: Unchanged left retrocardiac opacity associated with air bronchograms. Carotid Doppler Study 11/19/19 00:00 IMPRESSION: NO HEMODYNAMICALLY SIGNIFICANT STENOSIS. IMPRESSION/recommendation: 1. Paroxysmal supraventricular tachycardia:: No recurrence. Patient is on verapamil ER 120 mg p.o. twice daily. 2. Torticollis: Possibly secondary to underlying infection causing muscle spasm and pain versus secondary to metastatic cervical spine disease. This is resolved 3 asymptomatic hypotension: Patient blood pressure is much improved and is borderline normal. Patient asymptomatic. 4. Possible sepsis: Continue antibiotics and vasopressin. 5. History of hypertension: At present blood pressures on the low normal. 6. 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 7. Possible left lower lobe pneumonia: Continue antibiotic. Clinically seems to have resolveD. 8. Cardiomyopathy. Most likely rate related. Patient's EF is improved with the control of the patient's heart rate. I anticipate further improvement in the patient's ejection fraction. We will recheck an echo in the outpatient in about 3 months. 9. Hypokalemia and hypocalcemia: Replenish potassium and calcium. This is being done. Potassium is now high and still at 6.3. The patient's potassium has been stopped. His blood sugar is still within normal range. We will get a stat potassium level the patient's repeat potassium level last night was 5.7 and today morning is 5.4. This is most likely due to tumor lysis syndrome. 10. Diabetes mellitus: Continue antidiabetic medication. Continue serial Accu-Cheks. `11. Severely elevated alkaline phosphatase levels. This is secondary to patient's bony metastasis. 12. Anemia. Patient received 1 unit of packed RBCs MEDICATIONS reviewed. Medical management and management plan discussed with attending physician. Medical decision making is of moderate complexity. 40 minutes spent on this patient with more than 50% of time spent in direct patient care. Will sign off and follow the patient in the office.
[2019-11-28 14:32] LABS: ALBUMIN 3.4 g/dL (3.5-5.0); ANION GAP 12 (5-19); ASPARTATE AMINO TRANSFERASE 45 U/L (17-59); BILIRUBIN,DIRECT 0.3 mg/dL (0.0-0.4); BILIRUBIN,TOTAL 0.4 mg/dL (0.2-1.3); BLOOD UREA NITROGEN 10 mg/dL (7-20); CARBON DIOXIDE 21 mmol/L (22-30); CHLORIDE 107 mmol/L (98-107); GLUCOSE 135 mg/dL (75-110); NEONATAL BILIRUBIN RESULT 0.1 mg/dL (0.1-1.1); POTASSIUM 4.7 mmol/L (3.6-5.0); TOTAL PROTEIN 6.5 g/dL (6.3-8.2)
[2019-11-28 14:40] LABS: ALKALINE PHOSPHATASE 2741 U/L (38-126)
[2019-11-28 14:41] LABS: CALCIUM 6.5 mg/dL (8.4-10.2)
[2019-11-28 15:14] LABS: ABSOLUTE LYMPHOCYTES# (MANUAL) 0.6 10^3/uL (0.5-4.7); ABSOLUTE MONOCYTES # (MANUAL) 0.2 10^3/uL (0.1-1.4); BAND NEUTROPHILS % (MANUAL) 1 % (3-5); BASOPHILS % (MANUAL) 0 % (0-2); EOSINOPHILS % (MANUAL) 0 % (0-6); LYMPHOCYTES % (MANUAL) 6 % (13-45); METAMYELOCYTES % (MANUAL) 1 % (0-1); MONOCYTES % (MANUAL) 2 % (3-13); SEGMENTED NEUTROPHILS % (MAN) 90 % (42-78); TOTAL CELLS COUNTED 100
[2019-11-28 15:15] LABS: PLATELET CLUMPS PRESENT; PLATELET COMMENT ADEQUATE
[2019-11-28] MEDS: CALCIUM GLUCONATE 1000 MG/10 ML INJ IV SCH ×2 (16:11→17:10)
[2019-11-28] MEDS: TAMSULOSIN HCL 0.4 MG CAP.SR.24H PO SCH (17:09)
--- NOTE | 2019-11-28 17:17 | PDOC DISCHARGE SUMMARY ---
Impression - Admit/DC Date/PCP Admission Date/Primary Care Provider: 11/17/19 15:27 KENZIE DALTON Discharge Date: 11/28/19 - Discharge Diagnosis (1) Paroxysmal SVT (supraventricular tachycardia) Is this a current diagnosis for this admission?: Yes (2) Acute hyperkalemia Is this a current diagnosis for this admission?: Yes (3) Diabetes mellitus type 2 in nonobese Is this a current diagnosis for this admission?: Yes (4) HTN (hypertension) Is this a current diagnosis for this admission?: Yes (5) HLD (hyperlipidemia) Is this a current diagnosis for this admission?: Yes (6) Malignant neoplasm of prostate metastatic to bone Is this a current diagnosis for this admission?: Yes (7) Osteoarthritis involving multiple joints on both sides of body Is this a current diagnosis for this admission?: Yes (8) Drug-induced hyperkalemia Is this a current diagnosis for this admission?: Yes (9) Hypocalcemia Is this a current diagnosis for this admission?: Yes - Assessment Summary: Patient was admitted to ICU due to hemodynamic instability with SVT. He was adequately managed with involvement of health and safety consultant, Dr. Mcdaniel, contribution. He was downgraded to telemetry bed but due to concern for possible recurrent arrhythmia, he was subsequently moved to [facility]. His stay was further complicated with electrolyte imbalance, particularly hypokalemia and hypocalcemia. Also, he developed significant anemia that needed two units PRBC t ransfusion during this hospitalization. He will be discharged home today and follow up with Dr. Haines, Dr. Mcdaniel, and myself as instructed upon discharge - Additional Information Resuscitation Status: Full Code Referrals: ASAD HAINES MD [ACTIVE STAFF] - 12/10/19 3:15 pm KENZIE DALTON MD [Primary Care Provider] - 12/03/19 10:00 am RADHA HEARD MD [ACTIVE STAFF] - Prescriptions: Verapamil HCl [Calan Sr 120 mg Tablet.sa] 120 mg PO Q12 #60 tablet.sa Calcium Carbonate [Os-Daniele 500 mg Tablet (Oyster-Shell)] 500 mg PO TID #90 tablet Home Medications: Ergocalciferol (Vitamin D2) [Drisdol 50,000 unit (1.25MG) Capsule] 50,000 unit PO MO 11/04/19 Granisetron [Sancuso] 1 patch TD ASDIR PRN 11/04/19 Insulin Glargine,Hum.rec.anlog [Lantus Insulin 100 Unit/1 ml 10 ml] 24 units SQ QHS 11/04/19 Levetiracetam [Keppra 500 mg Tablet] 500 mg PO Q12 11/04/19 Linagliptin [Tradjenta] 5 mg PO DAILY 11/04/19 Oxycodone HCl [Oxy-Ir 5 mg Tablet] 10 mg PO Q3HP PRN 11/04/19 Prednisone 10 mg PO DAILY 11/04/19 Tamsulosin HCl [Flomax 0.4 mg Cap.sr] 0.4 mg PO QPM 11/04/19 Fentanyl [Duragesic 25 mcg/hr Transdermal Patch] 1 patch TOP Q3D 11/17/19 Rosuvastatin Calcium [Crestor 20 mg Tablet] 20 mg PO QHS 11/17/19 Calcium Carbonate [Os-Daniele 500 mg Tablet (Oyster-Shell)] 500 mg PO TID #90 tablet 11/28/19 Verapamil HCl [Calan Sr 120 mg Tablet.sa] 120 mg PO Q12 #60 tablet.sa 11/28/19 History of Present Illiness History of Present Illness: MARIAA ALCANTAR JR is a 69 year old male for whom I was asked to see while in the emergency room because of tachycardia and torticollis. 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 He was recently at [facility] because of a urinary obstruction and further care. His last chemotherapy was October 15, 2019. According to EMS and ED records Family called EMS because in the past few days after recent discharge from [facility] he has been weak,anorexic and unable to ambulate. He developed dystonia of the right neck without known trauma. They said that Dr. Haines is actively following him and had increase his Oxycodone hours to 10mg every 3hrs for his pain and now neck pain. He has a history of widely metastatic prostate cancer status post local radiation and chemotherapy. Has not had chemotherapy with the past hospitalizations. Metastatic disease to [employer] (brain) noted in September resulting in craniotomy with debulking. Also had adjudavant sessions of reduced dose radiation after craniectomy. All of this was done at [facility]. "EMS report that patient was alert weak needed full assist to stretcher his glucose was within normal limits his temperature was 100.1 they gave him a Tylenol. They say his BP was "good" 115 over 70s, SPO2 within normal limits, heart rate 140. On review of the rhythm strip from EMS does appear to be SVT rate of about 150. Family and Mariaa tell me understanding regarding the surgery and the brain radiation was that it was done with the goal to "remove any cancer from the brain". Regarding his overall plan and goals of care for malignancy interventions, they say that he is still needing "chemo" but has not been able to get that because he has been hospitalized and not well, but that he is "still supposed to be getting that."" In the ED "Mariaa says that he thinks the gradual spasm and turning of his neck and the pain in his neck has been progressive likely starting before he was recently hospitalized at [facility]. He says he is currently in pain. He does not feel nauseous at this moment but is also still using the patch for his nausea." I confirmed the above with a ongoing review of systems. It appears that the dystonia (torticollis) may have had an earlier insidious start but is worsened in the last 3 days. The ECG was reviewed. He actually has a sinus tachycardia. Denied worsening headache. No chest pain, no fever at home or chills/rigors. Has Medi-port in left chest present for about 1 year. Has not had any recent chemotherapy. Had only one dose of Jevtana in early October according to Dr. Haines, whom I spoke with Hospital Course Hospital Course: Patient was admitted to ICU due to hemodynamic instability with SVT and electrolytes imbalance. He was adequately managed with involvement of health and safety consultant, Dr. Mcdaniel, contribution. He was downgraded to telemetry bed but due to concern for possible recurrent arrhythmia, he was subsequently moved to [facility]. His stay was further complicated with electrolyte imbalance, particularly hypokalemia and hypocalcemia. Also, he developed significant anemia that needed two units PRBC transfusion during this hospitalization. He will be discharged home today and follow up with Dr. Haines, Dr. Mcdaniel, and myself as instructed upon discharge. Physical Exam Vital Signs: Temp Pulse Resp BP Pulse Ox 98.0 F 96 18 100/67 99 11/28/19 16:07 11/28/19 16:07 11/28/19 07:27 11/28/19 16:07 11/28/19 16:07 Intake & Output 11/27/19 11/28/19 11/29/19 06:59 06:59 06:59 Intake Total 1438 1106 360 Output Total 1300 700 400 Balance 138 406 -40 Weight 67.5 kg 68 kg General appearance: PRESENT: no acute distress, well-developed, well-nourished Head exam: PRESENT: atraumatic, normocephalic Eye exam: PRESENT: conjunctiva pink. ABSENT: pallor, scleral icterus Ear exam: PRESENT: normal external ear exam Mouth exam: PRESENT: moist Respiratory exam: PRESENT: clear to auscultation rebecca Cardiovascular exam: PRESENT: RRR, +S1, +S2. ABSENT: diastolic murmur, rubs, sy stolic murmur GI/Abdominal exam: PRESENT: normal bowel sounds, soft. ABSENT: distended, guarding, mass, organomegaly, rebound, tenderness Extremities exam: ABSENT: pedal edema Neurological exam: PRESENT: alert, awake, oriented to person, oriented to place, oriented to time, oriented to situation, CN II-XII grossly intact. ABSENT: motor sensory deficit Psychiatric exam: PRESENT: appropriate affect, normal mood. ABSENT: homicidal ideation, suicidal ideation Skin exam: PRESENT: dry, warm Results Laboratory Results: WBC 9.4 10^3/uL (4.0-10.5) 11/28/19 13:45 RBC 3.84 10^6/uL (4.35-5.55) L 11/28/19 13:45 Hgb 10.8 g/dL (13.5-17.0) L 11/28/19 13:45 Hct 32.6 % (37.9-51.0) L 11/28/19 13:45 MCV 85 fl (80-97) 11/28/19 13:45 MCH 28.2 pg (27.0-33.4) 11/28/19 13:45 MCHC 33.3 g/dL (32.0-36.0) 11/28/19 13:45 RDW 20.1 % (11.5-14.0) H 11/28/19 13:45 Plt Count 218 10^3/uL (150-450) 11/28/19 13:45 Lymph % (Auto) Not Reportable 11/28/19 13:45 Todd % (Auto) Not Reportable 11/28/19 13:45 Eos % (Auto) Not Reportable 11/28/19 13:45 Baso % (Auto) Not Reportable 11/28/19 13:45 Absolute Neuts (auto) Not Reportable 11/28/19 13:45 Absolute Lymphs (auto) Not Reportable 11/28/19 13:45 Absolute Monos (auto) Not Reportable 11/28/19 13:45 Absolute Eos (auto) Not Reportable 11/28/19 13:45 Absolute Basos (auto) Not Reportable 11/28/19 13:45 Total Counted 100 11/28/19 13:45 Seg Neutrophils % Not Reportable 11/28/19 13:45 Seg Neuts % (Manual) 90 % (42-78) H 11/28/19 13:45 Band Neutrophils % 1 % (3-5) L 11/28/19 13:45 Lymphocytes % (Manual) 6 % (13-45) L 11/28/19 13:45 Monocytes % (Manual) 2 % (3-13) L 11/28/19 13:45 Eosinophils % (Manual) 0 % (0-6) 11/28/19 13:45 Basophils % (Manual) 0 % (0-2) 11/28/19 13:45 Metamyelocytes % 1 % (0-1) 11/28/19 13:45 Myelocytes % 5 % (0) H 11/24/19 04:05 Promyelocytes % 1 % (0) H 11/24/19 04:05 Abs Neuts (Manual) 8.6 10^3/uL (1.7-8.2) H 11/28/19 13:45 Abs Lymphs (Manual) 0.6 10^3/uL (0.5-4.7) 11/28/19 13:45 Abs Monocytes (Manual) 0.2 10^3/uL (0.1-1.4) 11/28/19 13:45 Absolute Eos (Manual) 0.0 10^3/uL (0.0-0.6) 11/28/19 13:45 Abs Basophils (Manual) 0.0 10^3/uL (0.0-0.2) 11/28/19 13:45 Nucleated RBCs 1 /100 WBC (0) 11/22/19 05:45 Toxic Granulation 1+ 11/26/19 05:30 Toxic Vacuolation PRESENT 11/26/19 05:30 Clumped Platelets PRESENT 11/28/19 13:45 Platelet Comment ADEQUATE 11/28/19 13:45 Polychromasia SLIGHT 11/26/19 05:30 Poikilocytosis 1+ 11/26/19 05:30 Basophilic Stippling PRESENT 11/20/19 05:35 Anisocytosis 3+ 11/26/19 05:30 Tear Drop Cells SLIGHT 11/26/19 05:30 Ovalocytes SLIGHT 11/26/19 05:30 Schistocytes SLIGHT 11/20/19 05:35 PT 17.3 SEC (11.4-15.4) H 11/18/19 06:45 INR 1.40 11/18/19 06:45 APTT 43.2 SEC (23.5-35.8) H 11/18/19 06:45 VBG pH 7.38 (7.30-7.42) 11/17/19 13:25 VBG pCO2 36.2 mmHg (35-63) 11/17/19 13:25 VBG HCO3 20.9 mmol/L (20-32) 11/17/19 13:25 VBG Base Excess -3.4 mmol/L 11/17/19 13:25 Sodium 139.6 mmol/L (137-145) 11/28/19 13:45 Potassium 4.7 mmol/L (3.6-5.0) 11/28/19 13:45 Chloride 107 mmol/L (98-107) 11/28/19 13:45 Carbon Dioxide 21 mmol/L (22-30) L 11/28/19 13:45 Anion Gap 12 (5-19) 11/28/19 13:45 BUN 10 mg/dL (7-20) 11/28/19 13:45 Creatinine 1.12 mg/dL (0.52-1.25) 11/28/19 13:45 Est GFR ( Amer) > 60 (>60) 11/28/19 13:45 Est GFR (MDRD) Non-Af > 60 (>60) 11/28/19 13:45 Glucose 135 mg/dL (75-110) H 11/28/19 13:45 POC Glucose 148 mg/dL (70-110) H 11/28/19 16:07 Lactic Acid 1.3 mmol/L (0.7-2.1) 11/17/19 21:27 Calcium 6.5 mg/dL (8.4-10.2) L* 11/28/19 13:45 Ionized Calcium Yola 0.87 mmol/L (1.14-1.30) L 11/28/19 14:15 Phosphorus 2.4 mg/dL (2.5-4.5) L 11/23/19 06:02 Magnesium 1.7 mg/dL (1.6-2.3) 11/23/19 06:02 Total Bilirubin 0.4 mg/dL (0.2-1.3) 11/28/19 13:45 Direct Bilirubin 0.3 mg/dL (0.0-0.4) 11/28/19 13:45 Neonat Total Bilirubin 0.1 mg/dL (0.1-1.1) 11/28/19 13:45 Neonat Direct Bilirubin 0.0 mg/dL (0.0-0.3) 11/28/19 13:45 Neonat Indirect Bili 0.1 mg/dL (0.0-1.1) 11/28/19 13:45 AST 45 U/L (17-59) 11/28/19 13:45 ALT 18 U/L (<50) 11/28/19 13:45 Alkaline Phosphatase 2741 U/L (38-126) H 11/28/19 13:45 Ammonia < 8.7 umol/L (9-33) L 11/17/19 18:30 Creatine Kinase 182 U/L (55-170) H 11/18/19 05:40 CK-MB (CK-2) 0.43 ng/mL (<4.55) 11/17/19 13:25 Troponin I 0.051 ng/mL 11/17/19 13:25 NT-Pro-B Natriuret Pep 317 pg/mL (<125) H 11/17/19 23:06 Total Protein 6.5 g/dL (6.3-8.2) 11/28/19 13:45 Albumin 3.4 g/dL (3.5-5.0) L 11/28/19 13:45 Vitamin D 25-Hydroxy 16.9 ng/mL (14.7-68.3) 11/22/19 05:45 TSH 2.26 uIU/mL (0.47-4.68) 11/17/19 13:25 Free T4 0.61 ng/dL (0.78-2.19) L 11/17/19 13:25 Free T3 pg/mL 2.09 pg/mL (2.77-5.27) L 11/17/19 13:25 Urine Color YELLOW 11/17/19 23:06 Urine Appearance SLIGHTLY-CLOUDY 11/17/19 23:06 Urine pH 6.0 (5.0-9.0) 11/17/19 23:06 Ur Specific [place] 1.024 11/17/19 23:06 Urine Protein 30 mg/dL (NEGATIVE) H 11/17/19 23:06 Urine Glucose (UA) NEGATIVE mg/dL (NEGATIVE) 11/17/19 23:06 Urine Ketones TRACE mg/dL (NEGATIVE) H 11/17/19 23:06 Urine Blood MODERATE (NEGATIVE) H 11/17/19 23:06 Urine Nitrite NEGATIVE (NEGATIVE) 11/17/19 23:06 Urine Nitrite (Reflex) NEGATIVE (NEGATIVE) 11/17/19 17:35 Urine Bilirubin NEGATIVE (NEGATIVE) 11/17/19 23:06 Urine Urobilinogen NEGATIVE mg/dL (<2.0) 11/17/19 23:06 Ur Leukocyte Esterase NEGATIVE (NEGATIVE) 11/17/19 23:06 Leukocyte Esterase Rfl NEGATIVE (NEGATIVE) 11/17/19 17:35 Urine WBC (Auto) 8 /HPF 11/17/19 23:06 Urine RBC (Auto) 8 /HPF 11/17/19 23:06 Urine WBC (Reflex) 6 /HPF 11/17/19 17:35 Squamous Epi Cells Auto <1 /HPF 11/17/19 23:06 Urine Mucus (Auto) RARE /LPF 11/17/19 23:06 Urine Creatinine 29.4 mg/dL (Not Estab.) 11/23/19 08:30 Urine Calcium 1.0 mg/dL (Not Estab.) 11/23/19 08:30 Ur Calcium 24 Hr 27.0 mg/24 hr (100.0-300.) L 11/23/19 08:30 Calcium/Creat Ratio 34 mg/g creat (14-318) 11/23/19 08:30 Urine Ascorbic Acid NEGATIVE (NEGATIVE) 11/17/19 23:06 Time Trough Drawn 2155 11/19/19 21:55 Vancomycin Trough 21.8 ug/mL (5.0-20.0) H 11/19/19 21:55 Influenza A (Rapid) NEGATIVE (NEGATIVE) 11/18/19 01:10 Influenza B (Rapid) NEGATIVE (NEGATIVE) 11/18/19 01:10 Slides for Path Review PATHOLOGIST REVIEWED 11/24/19 04:05 Blood Type O POSITIVE 11/26/19 08:08 Antibody Screen NEGATIVE 11/26/19 08:08 Crossmatch See Detail 11/26/19 08:08 11/17/19 11/17/19 11/17/19 13:25 13:25 23:06 CK-MB (CK-2) 0.43 Troponin I 0.051 NT-Pro-B Natriuret Pep 317 H Impressions: Cervical Spine CT 11/17/19 00:00 IMPRESSION: MULTIPLE SCLEROTIC LESIONS IN THE VERTEBRAE CONSISTENT WITH BONY METASTASES. NO ACUTE FINDINGS IN THE CERVICAL SPINE. Head CT 11/17/19 00:00 IMPRESSION: SURGICAL CHANGES IN THE RIGHT FRONTAL LOBE WITH MILD ENCEPHALOMALACIA. MILD CHRONIC CHANGES OF ATROPHY AND MICROVASCULAR ISCHEMIA. NO ACUTE PROCESS. EVIDENCE OF ACUTE STROKE: NO. Chest X-Ray 11/17/19 12:54 IMPRESSION: LEFT LOWER LOBE INFILTRATE SUSPICIOUS FOR PNEUMONIA. Chest/Abdomen CTA 11/17/19 14:00 IMPRESSION: 1. NORMAL CTA OF THE CHEST. NO PULMONARY EMBOLI. 2. CARDIOMEGALY WITH BILATERAL PLEURAL EFFUSIONS AND COMPRESSIVE ATELECTASIS IN THE LUNG BASES. HAZY GROUND-GLASS OPACITIES THROUGHOUT BOTH LUNGS LIKELY REPRESENTS EARLY PULMONARY EDEMA. 3. PERICARDIAL EFFUSION. 4. EXTENSIVE SCLEROTIC BONY METASTASES. Chest X-Ray 11/18/19 06:00 IMPRESSION: Unchanged left retrocardiac opacity associated with air bronchograms. Carotid Doppler Study 11/19/19 00:00 IMPRESSION: NO HEMODYNAMICALLY SIGNIFICANT STENOSIS. Plan Health Concerns: Immunocompromise status from his morbidity and chemotherapy administration. Plan of Treatment: Close monitoring and appropriate use of colony stimulating factors by oncology group. Close follow up with charger tester regarding his arrhythmia management. Goals: Reduce his high readmission risk level. Time Spent: Greater than 30 Minutes - POst acute care plan arrangement and discussion with patient and family at bedside. Stroke Is this a Stroke Patient?: No Acute Heart Failure - Is this a Heart Failure Patient?: No
[2019-11-28 18:11] VITALS: BP 121/79
== END 2019-11-28 18:37 | disposition home or self-care (01) | DRG 309 ==
LOC: ER 12:52 → EH 15:27 → ICU 21:08 → 4W 11-23 19:03 → 3S 11-23 22:15
PROVIDERS: ADMIT Internal Medicine Geriatric Medicine; ATTEND Internal Medicine Geriatric Medicine
PROC: 30233N1 Transfusion of Nonautologous Red Blood Cells into Peripheral Vein, Percutaneous Approach (ICD-10-PCS; principal; 2019-11-26)
DX: I47.1 Supraventricular tachycardia (principal); C79.51 Secondary malignant neoplasm of bone; C79.31 Secondary malignant neoplasm of brain; N17.9 Acute kidney failure, unspecified; E46 Unspecified protein-calorie malnutrition; R64 Cachexia; I42.9 Cardiomyopathy, unspecified; E87.6 Hypokalemia; E86.0 Dehydration; C61 Malignant neoplasm of prostate; E11.9 Type 2 diabetes mellitus without complications; D64.9 Anemia, unspecified; Z87.891 Personal history of nicotine dependence; G89.3 Neoplasm related pain (acute) (chronic); E87.5 Hyperkalemia; E78.1 Pure hyperglyceridemia; E78.5 Hyperlipidemia, unspecified; M89.49 Other hypertrophic osteoarthropathy, multiple sites; E83.51 Hypocalcemia; M43.6 Torticollis; Z79.4 Long term (current) use of insulin; Z79.899 Other long term (current) drug therapy; Z92.3 Personal history of irradiation; Z92.21 Personal history of antineoplastic chemotherapy; Z92.25 Personal history of immunosuppression therapy; Z98.890 Other specified postprocedural states; Z68.22 Body mass index [BMI] 22.0-22.9, adult
CPT/HCPCS: 36415; 36430; 36591; 70450; 71045; 71275; 72125; 80048; 80053; 80202; 81001; 82040; 82140; 82306; 82330; 82340; 82550; 82553; 82565; 82570; 82803; 82962; 83605; 83735; 83880; 84100; 84132; 84439; 84443; 84481; 84484; 85025; 85027; 85610; 85730; 86850; 86900; 86901; 86920; 87040; 87086; 87804; 93005; 93010; 93306; 93308; 93880; 96361; 96365; 96367; 96375; 99291; 99292; C1758; J0153; J0610; J0692; J1100; J1160; J1170; J1642; J1644; J1720; J1815; J2800; J3370; J3475; J3480; J3490; J7030; J7060; J7120; J7512; P9016; P9041; P9047

== ENCOUNTER 2019-12-08 19:14 | Inpatient (IN) | payer MEDICARE, MEDICAID ==
[2019-12-08] MEDS ORDERED: NORMAL SALINE 1000 ML 1,000 ML IV ONE ×2 (19:34→20:38)
[2019-12-08] MEDS ORDERED: FENTANYL CITRATE INJ/PF 100 MCG/2 ML AMPUL IV ONE (19:41)
--- NOTE | 2019-12-08 19:44 | ER Document Report ---
ED General - General Stated Complaint: PELVIC PAIN Time Seen by Provider: 12/08/19 19:34 Primary Care Provider: KENZIE DALTON MD [Primary Care Provider] - Follow up as needed Notes: 69-year-old male with history of metastatic prostate cancer multiple admissions for infections and cardiac issues presents with horrible pain in his pelvis w orse than usual in the setting of metastatic prostate cancer refractory to his home medications as well as a fever today at home noticed by nursing. He denies urinary symptoms, headache photophobia neck pain cough or shortness of breath. He is here with his daughter who works at [employer]. When asked about his CODE STATUS he is not sure says "I just want something for the pain." Last chemo was in October. TRAVEL OUTSIDE OF THE [place] IN LAST 30 DAYS: No - Related Data Allergies/Adverse Reactions: No Known Allergies Allergy (Verified 06/13/19 18:36) Past Medical History - Social History Smoking Status: Unknown if Ever Smoked Family History: Reviewed & Not Pertinent, Hypertension - Past Medical History Cardiac Medical History: Reports: Hx Hypercholesterolemia, Hx Hypertension Denies: Hx Coronary Artery Disease, Hx Heart Attack Pulmonary Medical History: Reports: Hx Pneumonia - "years ago" Denies: Hx Asthma, Hx Bronchitis, Hx COPD Neurological Medical History: Denies: Hx Cerebrovascular Accident, Hx Seizures Renal/ Medical History: Reports: Hx Benign Prostatic Hyperplasia. Denies: Hx Peritoneal Dialysis Malignancy Medical History: Reports Hx Pancreatic Cancer, Reports Hx Prostate Cancer GI Medical History: Denies: Hx Hepatitis, Hx Hiatal Hernia, Hx Ulcer Musculoskeletal Medical History: Reports Hx Arthritis - Shoulder, Reports Hx Musculoskeletal Deformity, Reports Hx Musculoskeletal Trauma Psychiatric Medical History: Denies: Hx Depression Infectious Medical History: Denies: Hx Hepatitis Past Surgical History: Reports: Hx Genitourinary Surgery - TURP, Hx Orthopedic Surgery - Lt knee, Other - Craniotomy; Placement of mediport. Denies: Hx Open Heart Surgery, Hx Pacemaker - Immunizations Immunizations up to date: No Hx Diphtheria, Pertussis, Tetanus Vaccination: No Review of Systems - Review of Systems Notes: REVIEW OF SYSTEMS GEN: Denies fever, chills, weight loss ENT: Denies sore throat, nasal discharge, ear pain EYES: Denies blurry vision, eye pain, discharge CV: Denies chest pain, palpitations, edema RESP: Denies cough, shortness of breath, wheezing GI: This pain MSK: Back pain SKIN: Denies rash, skin lesions LYMPH: Denies swollen glands/lymph nodes NEURO: Denies headache, focal weakness or numbness, dizziness PSYCH: Denies depression, suicidal or homicidal ideation PHYSICAL EXAMINATION General: Const thin ill-appearing Head: Atraumatic, normocephalic ENT: Mouth normal, oropharynx moist, no exudates or tonsillar enlargement Eyes: Conjunctiva normal, pupils equal, lids normal Neck: No JVD, supple, no guarding CVS: Tachycardia Resp: No resp distress, equal and normal breath sounds bilaterally GI: Mild suprapubic tenderness Ext: No deformities, no edema, normal range of motion in upper and lower ext Back: Back pain throughout Skin: No rash, warm Lymphatic: No lymphadeopathy noted Neuro: Awake, alert. Face symmetric. GCS 15. Physical Exam - Vital signs Vitals: Resp Pulse Ox 19 96 12/08/19 19:20 12/08/19 19:20 Course - Re-evaluation Re-evalutation: 12/08/19 19:43 Patient with metastatic prostate cancer presents with tachycardia fever and pain. He was apparently in SVT prior to coming here and was given adenosine by EMS. Current picture most consistent with sepsis and uncontrolled pain. Could be PE but patient is not short of breath. Will resuscitate keep broad- spectrum antibiotic sepsis work-up, treat pain, and watch for SVT or other arrhythmias. Currently EKG showing sinus tachycardia. I had a goals of care discussion and the patient and his daughter were not sure what they wanted to do but they did want full treatment in the ED. Not ready for DNR. Full code for now. - Vital Signs Vital signs: Temp Pulse Resp BP Pulse Ox 97.6 F 32 H 102/76 96 12/08/19 19:23 12/08/19 19:23 12/08/19 19:23 12/08/19 19:20 - Laboratory Result Diagrams: 12/08/19 19:36 12/08/19 19:36 Laboratory results interpreted by me: 12/08/19 12/08/19 12/08/19 19:36 19:36 19:54 RBC 4.20 L Hgb 11.8 L Hct 35.4 L RDW 20.0 H Seg Neuts % (Manual) 79 H Band Neutrophils % 2 L PT VBG pCO2 28.5 L VBG HCO3 15.8 L Carbon Dioxide 14 L Anion Gap 20 H Glucose 119 H Calcium 5.7 L* AST 117 H Alkaline Phosphatase 4065 H Albumin 3.1 L 12/08/19 20:11 RBC Hgb Hct RDW Seg Neuts % (Manual) Band Neutrophils % PT 18.4 H VBG pCO2 VBG HCO3 Carbon Dioxide Anion Gap Glucose Calcium AST Alkaline Phosphatase Albumin - EKG Interpretation by Me EKG shows normal: Sinus rhythm Rate: Tachycardia Rhythm: NSR Critical Care Note - Critical Care Note Total time excluding time spent on procedures (mins): 34 Comments: The above patient is critically ill. Not including procedures, but including direct re-evaluations, speaking with patient and/or consultants, interpreting results, and documenting, I spent the total amount of minute listed listed above on critical care time Discharge - Discharge Clinical Impression: Hypocalcemia Sepsis Qualifiers: Sepsis type: sepsis due to unspecified organism Sepsis acute organ dysfunction status: unspecified Qualified Code(s): A41.9 - Sepsis, unspecified organism Condition: Fair Disposition: ADMITTED INPATIENT Admitting Provider: Lyndon Unit Admitted: IMCU Referrals: KENZIE DALTON MD [Primary Care Provider] - Follow up as needed
[2019-12-08 19:56] LABS: HEMATOCRIT 35.4 % (37.9-51.0); HEMOGLOBIN 11.8 g/dL (13.5-17.0); MEAN CORPUSCULAR HGB CONC 33.2 g/dL (32.0-36.0); MEAN CORPUSCULAR VOLUME 84 fl (80-97); PLATELET COUNT 191 10^3/uL (150-450); WHITE BLOOD COUNT 9.1 10^3/uL (4.0-10.5)
[2019-12-08 20:09] LABS: VENOUS BLOOD BASE EXCESS -8.1 mmol/L; VENOUS BLOOD HCO3 15.8 mmol/L (20-32); VENOUS BLOOD PCO2 28.5 mmHg (35-63); VENOUS BLOOD PH 7.36 (7.30-7.42)
[2019-12-08 20:10] LABS: ALBUMIN 3.1 g/dL (3.5-5.0); ASPARTATE AMINO TRANSFERASE 117 U/L (17-59); BILIRUBIN,DIRECT 0.4 mg/dL (0.0-0.4); BILIRUBIN,TOTAL 0.7 mg/dL (0.2-1.3); BLOOD UREA NITROGEN 16 mg/dL (7-20); GLUCOSE 119 mg/dL (75-110); NEONATAL BILIRUBIN RESULT 0.3 mg/dL (0.1-1.1); POTASSIUM 4.4 mmol/L (3.6-5.0); TOTAL PROTEIN 6.3 g/dL (6.3-8.2)
[2019-12-08 20:14] LABS: ABSOLUTE LYMPHOCYTES# (MANUAL) 1.5 10^3/uL (0.5-4.7); ABSOLUTE MONOCYTES # (MANUAL) 0.3 10^3/uL (0.1-1.4); ANISOCYTOSIS 2+; BAND NEUTROPHILS % (MANUAL) 2 % (3-5); BASOPHILS % (MANUAL) 0 % (0-2); EOSINOPHILS % (MANUAL) 0 % (0-6); LYMPHOCYTES % (MANUAL) 16 % (13-45); MONOCYTES % (MANUAL) 3 % (3-13); NUCLEATED RED BLOOD CELLS 1 /100 WBC (0); PLATELET COMMENT ADEQUATE; SEGMENTED NEUTROPHILS % (MAN) 79 % (42-78); TOTAL CELLS COUNTED 100
[2019-12-08 20:16] LABS: CARBON DIOXIDE 14 mmol/L (22-30); CHLORIDE 104 mmol/L (98-107)
[2019-12-08] MEDS: CEFEPIME 2 GM/D5W RTU 2 GM/50 ML RTUPB IV SCH ×2 (20:18→22:46)
[2019-12-08] MEDS ORDERED: LIDOCAINE 2% URO-JET 5 ML KIT MM ONE (20:30)
[2019-12-08 20:39] LABS: INTERNATIONAL RATION (INR) 1.51; PROTHROMBIN TIME 18.4 SEC (11.4-15.4)
[2019-12-08 20:45] LABS: ALKALINE PHOSPHATASE 4065 U/L (38-126); ANION GAP 20 (5-19)
[2019-12-08 20:48] LABS: CALCIUM 5.7 mg/dL (8.4-10.2)
[2019-12-08] MEDS ORDERED: CALCIUM GLUCONATE 1000 MG/10 ML INJ IV ONE (20:57)
[2019-12-08] MEDS ORDERED: HYDROMORPHONE HCL INJ/PF 2 MG/ML AMPULE IV ONE (20:57)
[2019-12-08 22:31] LABS: APPEARANCE,URINE SLIGHTLY-CLOUDY; BILIRUBIN,URINE NEGATIVE (NEGATIVE); COLOR,URINE YELLOW; GLUCOSE, URINE NEGATIVE (NEGATIVE); KETONES,URINE 20 mg/dL (NEGATIVE); LEUKOCYTE ESTERASE,URINE NEGATIVE (NEGATIVE); NITRITE,URINE NEGATIVE (NEGATIVE); PROTEIN,URINE 100 mg/dL (NEGATIVE); URINE SPECIFIC GRAVITY 1.012; UROBILINOGEN,URINE NEGATIVE mg/dL (<2.0)
[2019-12-08 22:32] LABS: A TYPE INFLUENZA AG NEGATIVE (NEGATIVE); B INFLUENZA AG NEGATIVE (NEGATIVE)
[2019-12-08] MEDS: OXYCODONE HCL IR 5 MG TABLET PO PRN (23:31)
[2019-12-09] MEDS ORDERED: DEXTROSE 50%-WATER SYRINGE 25 GM/50 ML DOSE IV PRN (02:30)
[2019-12-09] MEDS ORDERED: GLUCAGON,HUMAN RECOMB 1 MG INJ IM PRN (02:30)
[2019-12-09] MEDS ORDERED: DEXTROSE 40% GEL 15 GM TUBE PO PRN (02:30)
[2019-12-09] MEDS ORDERED: DEXTROSE 40% GEL 15 GM TUBE X 2 PO PRN (02:30)
[2019-12-09] MEDS: MORPHINE SULFATE 10 MG/ML INJ IV PRN (02:40)
[2019-12-09] MEDS: OXYCODONE HCL IR 5 MG TABLET PO PRN ×3 (05:12→22:59)
[2019-12-09] MEDS ORDERED: ACETAMINOPHEN SOLN 325 MG/10.15 ML UDCUP ONE (07:33)
[2019-12-09] MEDS: ACETAMINOPHEN SOLN 325 MG/10.15 ML UDCUP PO PRN ×2 (07:35→17:19)
[2019-12-09] MEDS ORDERED: GRANISETRON TD PRN (08:26)
[2019-12-09] MEDS: INSULIN LISPRO 100 UNIT/ML 3 ML VIAL SUBCUT SCH ×4 (08:43→22:20)
[2019-12-09] MEDS ORDERED: VANCOMYCIN HCL 0 MG in DEXTROSE 5%-WATER 250 ML IV NR (08:45)
[2019-12-09] MEDS ORDERED: IBUPROFEN 400 MG TABLET PO PRN (08:51)
[2019-12-09] MEDS: CALCIUM CARBONATE 500 MG TABLET PO SCH ×3 (09:55→17:20)
[2019-12-09] MEDS: LEVETIRACETAM 500 MG TABLET PO SCH ×2 (09:55→22:34)
[2019-12-09] MEDS: VERAPAMIL HCL 120 MG TABLET PO SCH (09:56)
[2019-12-09] MEDS ORDERED: ENOXAPARIN SODIUM INJ 40 MG/0.4 ML DISP.SYRIN SUBCUT SCH (10:00)
[2019-12-09] MEDS: FENTANYL 25 MCG/HR PATCH.TD72 TOP SCH ×2 (10:00→13:01)
[2019-12-09] MEDS ORDERED: CEFEPIME 2 GM/D5W RTU 2 GM/50 ML RTUPB IV SCH (10:00)
[2019-12-09] MEDS: PANTOPRAZOLE SODIUM 40 MG TABLET.DR PO SCH (10:08)
[2019-12-09] MEDS: CEFEPIME HCL 2 GM in DEXTROSE 5%-WATER 50 ML IV SCH ×2 (10:09→22:33)
[2019-12-09] MEDS ORDERED: ADENOSINE INJ/PF 6 MG/2 ML SDV IV ONE ×2 (11:47→11:49)
[2019-12-09] MEDS ORDERED: DIGOXIN INJ 0.5 MG/2 ML AMPULE ONE ×2 (12:02→17:09)
[2019-12-09] MEDS: VANCOMYCIN HCL 500 MG in DEXTROSE 5%-WATER 100 ML IV SCH ×2 (13:12→23:32)
[2019-12-09] MEDS ORDERED: NORMAL SALINE 500 ML IV ONE (14:00)
--- NOTE | 2019-12-09 14:35 | EKG REPORT ---
SEVERITY:- OTHERWISE NORMAL ECG - SINUS TACHYCARDIA : Confirmed by: Massiel Marcum 09-Dec-2019 14:34:58
--- NOTE | 2019-12-09 14:35 | EKG REPORT ---
SEVERITY:- ABNORMAL ECG - SINUS TACHYCARDIA PROLONGED QT INTERVAL : Confirmed by: Massiel Marcum 09-Dec-2019 14:34:54
[2019-12-09] MEDS: TAMSULOSIN HCL 0.4 MG CAP.SR.24H PO SCH (17:20)
[2019-12-09] MEDS: NORMAL SALINE 1000 ML 1,000 ML IV PRN ×2 (17:22→22:33)
[2019-12-09] MEDS ORDERED: DIGOXIN INJ 0.5 MG/2 ML AMPULE IV ONE ×2 (18:00→23:59)
--- NOTE | 2019-12-09 18:59 | PDOC CONSULTATION ---
Consultation-Blank Consultation: [facility] cardiology CONSULTATION by Dr. Mavis Starkey on 12/09/2019. Patient seen at 10:30 AM. 60-minute spent with patient more than 50% time spent in direct patient care. I was there during the administration of adenosine for the patient's SVT. REASON FOR CONSULTATION: Supraventricular tachycardia. CONSULT REQUESTING PHYSICIAN: Dr. Haney. HISTORY OF PRESENT ILLNESS: Patient is a 69-year-old Afro-Mexican male with known history of hypertension and history of prostate cancer with severe bone metastasis admitted with pain in the right hip pelvic area. The patient was found to be tachycardic. Initial EKG in the emergency room showed sinus tachycardia. His blood pressure was stable at that time. Subsequently the patient developed heart rates in the 140s to 150s and with a blood pressure dropping as low sometimes 84 systolic. There was definite difference in the complexes and these seem to be either ectopic atrial tachycardia or junctional tachycardia. The patient was given 6 mg of adenosine x2 and later converted to sinus tachycardia. The patient does complain of palpitations when he had the heart rate being fast, but denies any chest pain discomfort. There is no PND orthopnea or wheezing. There is no TIA CVA symptoms. The patient also continues to have severe hypo-thalassemia. There is no ventricular arrhythmias. Of note the patient was admitted earlier in November 2019, with severe hypocalcemia, and sepsis, and was found to be in SVT. This SVT was resistant to all antiarrhythmics including beta-blockers L blockers and amiodarone given intravenously. The patient at the time converted to sinus rhythm with adenosine IV push. The patient also found to have some degree of cardiomyopathy most likely rate related. At present after his heart rate is been converted to sinus tachycardia the patient denies any shortness of breath or chest pain or discomfort. EF no longer feels palpitations his blood pressures come up to 100 systolic. 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 Denies: Seizures Malignancy Medical History: Reports: Pancreatic Cancer GI Medical History: Denies: Hepatitis, Hiatal Hernia Musculoskeltal Medical History: Reports: Arthritis - Shoulder Psychiatric Medical History: Denies: Depression Hematology: Denies: Anemia, Sickle Cell Disease Past Surgical History Past Surgical History: Reports: Orthopedic Surgery - Lt knee, Other - Craniotomy; Placement of mediport Denies: Pacemaker Social History Information Source: Relative, [facility] Records Lives with: Family - His mother and his niece Smoking Status: Former Smoker Frequency of Alcohol Use: None Hx Recreational Drug Use: No Drugs: None Hx Prescription Drug Abuse: No - Advance Directive Resuscitation Status: Full Code Surrogate healthcare decision maker:: Daughter Family History Family History: Reviewed & Not Pertinent, Hypertension Parental Family History Reviewed: No - Not pertinent Children Family History Reviewed: No Sibling(s) Family History Reviewed.: No Medication/Allergy Home Medications: Ergocalciferol (Vitamin D2) [Drisdol 50,000 unit (1.25MG) Capsule] 50,000 unit PO MO 11/04/19 Granisetron [Sancuso] 1 patch TD ASDIR PRN 11/04/19 Insulin Glargine,Hum.rec.anlog [Lantus Insulin 100 Unit/1 ml 10 ml] 24 units SQ QHS 11/04/19 Levetiracetam [Keppra 500 mg Tablet] 500 mg PO Q12 11/04/19 Linagliptin [Tradjenta] 5 mg PO DAILY 11/04/19 Oxycodone HCl [Oxy-Ir 5 mg Tablet] 10 mg PO Q3HP PRN 11/04/19 Prednisone 10 mg PO DAILY 11/04/19 Tamsulosin HCl [Flomax 0.4 mg Cap.sr] 0.4 mg PO QPM 11/04/19 Fentanyl [Duragesic 25 mcg/hr Transdermal Patch] 1 patch TOP Q3D 11/17/19 Rosuvastatin Calcium [Crestor 20 mg Tablet] 20 mg PO QHS 11/17/19 Allergies/Adverse Reactions: No Known Allergies Allergy (Verified 06/13/19 18:36) Review of Systems All systems: as per PMH Constitutional: PRESENT: anorexia, fatigue, weakness, weight loss. ABSENT: chills, fever(s) - But temperature elevation noted in ED Eyes: PRESENT: visual disturbances Ears: ABSENT: as per HPI, hearing changes, other Nose, Mouth, and Throat: ABSENT: mouth pain, sore throat Cardiovascular: ABSENT: chest pain, dyspnea on exertion, edema, palpitations Respiratory: PRESENT: cough, sputum. ABSENT: dyspnea, hemoptysis Gastrointestinal: ABSENT: abdominal pain, constipation, diarrhea, hematemesis, hematochezia, nausea, vomiting Genitourinary: PRESENT: difficulty urinating Musculoskeletal: PRESENT: back pain, joint swelling, muscle weakness Integumentary: ABSENT: diaphoresis, lesions, pruritus, rash Neurological: PRESENT: lack of coordination, weakness. ABSENT: confusion, convulsions, syncope, tingling Psychiatric: ABSENT: as per HPI, anxiety, depression, hallucinations, homidical ideation, suicidal ideation, other Endocrine: PRESENT: menstrual abnormalities. ABSENT: cold intolerance, heat intolerance, polydipsia, polyuria Hematologic/Lymphatic: ABSENT: as per HPI, easy bleeding, easy bruising, lymphadenopathy, other Current Medications Acetaminophen (Tylenol Soln 325 Mg/10.15 Ml Udcup) 650 mg PO Q4HP PRN PRN Reason: FOR TEMP OVER 101 Stop: 01/08/20 07:55 Last Admin: 12/09/19 17:19 Dose: 650 mg Documented by: Calcium Carbonate (Os-Daniele 500 Mg Tablet (Oyster-Shell)) 500 mg PO TID [facility] Stop: 01/08/20 09:59 Last Admin: 12/09/19 17:20 Dose: 500 mg Documented by: Dextrose (Dextrose Inj 50% Syringe (25 Gm/50 Ml)) 12.5 gm IV PRN PRN; Protocol PRN Reason: FOR BG 50-69 IN ALERT PATIENT Stop: 01/08/20 02:29 Dextrose (Dextrose Inj 50% Syringe (25 Gm/50 Ml)) 25 gm IV PRN PRN; Protocol Stop: 01/08/20 02:29 Enoxaparin Sodium (Lovenox Inj 40 Mg/0.4 Ml Disp.Syrin) 40 mg SUBCUT DAILY [facility] Stop: 01/08/20 09:59 Last Admin: 12/09/19 09:55 Dose: 40 mg Documented by: Fentanyl (Duragesic 25 Mcg/Hr Transdermal Patch) 25 each TOP Q3D@1000 [facility] Stop: 12/16/19 08:59 Last Admin: 12/09/19 13:01 Dose: Not Given Documented by: Glucagon (Glucagen Inj 1 Mg Vial) 1 mg IM PRN PRN; Protocol PRN Reason: EVALUATE FOR BG < 70 Stop: 01/08/20 02:29 Glucose (Glutose 40% Gel 15 Gm Tube) 15 gm PO PRN PRN; Protocol PRN Reason: FOR BG 50-69 IN ALERT PATIENT Stop: 01/08/20 02:29 Glucose (Glutose 40% Gel 15 Gm Tube) 30 gm PO PRN PRN; Protocol PRN Reason: FOR BG < 50 IN ALERT PATIENT Stop: 01/08/20 02:29 Sodium Chloride (Nacl 0.9% 1000 Ml Iv Soln) 1,000 mls @ 100 mls/hr IV CONTINUOU S PRN PRN Reason: THIS MED IS NOT "PRN" Stop: 01/08/20 08:34 Last Admin: 12/09/19 17:22 Dose: 100 mls/hr Documented by: Cefepime HCl 2 gm/ Dextrose 50 mls @ 100 mls/hr IV Q12 [facility] Stop: 12/16/19 09:59 Last Infusion: 12/09/19 10:40 Dose: Infused Documented by: Vancomycin HCl 500 mg/ (Dextrose) 100 mls @ 66.667 mls/hr IV Q12 [facility] Stop: 12/16/19 10:29 Last Infusion: 12/09/19 15:15 Dose: Infused Documented by: Calcium Gluconate (Calcium Gluconate Rtu 1 Gm/50 Ml) 1 gm in 50 mls @ 50 mls/hr IV Q1H [facility] Stop: 12/09/19 22:29 Ibuprofen (Motrin 400 Mg Tablet) 400 mg PO Q4HP PRN PRN Reason: FEVER >101 Stop: 01/08/20 08:50 Insulin Human Lispro (Humalog Insulin 100 Unit/1 Ml 3 Ml Vial) 0 - 12 unit SUBCUT [facility]; Protocol Stop: 01/08/20 07:59 Last Admin: 12/09/19 16:35 Dose: Not Given Documented by: Levetiracetam (Keppra 500 Mg Tablet) 500 mg PO Q12 [facility] Stop: 01/08/20 09:59 Last Admin: 12/09/19 09:55 Dose: 500 mg Documented by: Morphine Sulfate (Morphine 10 Mg/Ml Inj) 2 mg IV Q4HP PRN PRN Reason: BREAKTHROUGH PAIN Stop: 12/16/19 02:03 Last Admin: 12/09/19 02:40 Dose: 2 mg Documented by: Oxycodone HCl (Oxy-Ir 5 Mg Tablet) 10 mg PO Q3HP PRN PRN Reason: FOR PAIN SCALE 4-5 Stop: 12/15/19 23:18 Last Admin: 12/09/19 10:12 Dose: 10 mg Documented by: Pantoprazole Sodium (Protonix [address] Tablet) 40 mg PO Q6AM [facility] Stop: 01/08/20 08:44 Last Admin: 12/09/19 10:08 Dose: 40 mg Documented by: Patient Own Medication (Granisetron [Sancuso]) 1 patch TD ASDIR PRN PRN Reason: CHEMO NAUSEA Tamsulosin HCl (Flomax 0.4 Mg Cap.Sr) 0.4 mg PO QPM [facility] Stop: 01/08/20 17:59 Last Admin: 12/09/19 17:20 Dose: 0.4 mg Documented by: Verapamil HCl (Calan 120 Mg Tablet) 120 mg PO Q12 [facility] Stop: 01/08/20 09:59 Last Admin: 12/09/19 09:56 Dose: 120 mg Documented by: PHYSICAL EXAMINATION: Patient is a frail build and appears to be chronically ill. But in spite of the tachycardia is in no major distress. Selected Entries 12/09/19 12/09/19 12/09/19 08:03 08:29 09:00 Temperature 102.0 F H Temperature Oral Source Pulse Rate 143 H Heart Rate ( 135 Monitors) Respiratory 20 20 Rate Blood Pressure 113/71 95/69 L Blood Pressure 85 77 Mean BP Location Right Arm BP Position Supine Supine O2 Sat by Pulse 97 97 Oximetry Oxygen Delivery Room Air Room Air Method 12/09/19 12/09/19 12/09/19 10:00 11:21 16:02 Temperature 98.3 F 98.0 F Temperature Oral Oral Source Pulse Rate 140 H 109 H Heart Rate ( 124 Monitors) Respiratory 12 16 Rate Blood Pressure 84/59 L 100/62 Blood Pressure 67 74 Mean BP Location Right Arm Right Arm BP Position Supine Supine O2 Sat by Pulse 98 96 Oximetry Oxygen Delivery Room Air Room Air Method HEAD: Scar of prior right craniotomy present. Normocephalic. EYES: Pupils are equal round regular reactive to light and accommodation. There is conjunctival pallor. There is no scleral icterus. EARS: Tympanic membranes are intact. External auditory canals are clear. NOSE nose: There is no deviated nasal septum. There is no inflammation nasal mucous membrane. MOUTH: Mucous membranes of mouth are slightly dry. There is no bleeding from the gums. THROAT: There is no redness of the oropharynx. There is no exudates. SKIN: There is no petechia or ecchymosis. There is no skin lesions or skin rashes. 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 Right side of neck is tender neck movements are limited due to pain and muscle spasm. There is no palpable lymphadenopathy. There is no goiter. There is no accessory muscle respiration use. TRACHEA is central. LUNGS: Clear to auscultation percussion. Heart: S1-S2 is heard. There is no S3 gallop. There is no S4 gallop. There is mild mitral regurgitation murmur present. There is no aortic stenosis or aortic regurgitation murmur. There is no S3 gallop. There is no S4 gallop. S1 is of normal intensity. There is no rub. ABDOMEN: Soft nontender. There is no hepatosplenomegaly bowel sounds are well heard. EXTREMITIES: Femorals are well felt. There is no femoral bruits. Leg pulses well felt. There is no pedal edema. There is no DVT or cellulitis. There is no cyanosis or clubbing. INDUCTION BRAZER: The patient is conscious awake alert oriented to place person and time. And also situation. He has weak upper extremity and lower extremity. No focal deficits though. PSYCHIATRIC: Patient is in spite of his low blood pressures judgment site seem to be intact. He does not appear to be anxious or agitated. EKG shows sinus tachycardia. Labs- Entire Visit 12/08/19 12/08/19 12/08/19 19:36 19:36 19:36 WBC 9.1 RBC 4.20 L Hgb 11.8 L Hct 35.4 L MCV 84 MCH 28.0 MCHC 33.2 RDW 20.0 H Plt Count 191 Lymph % (Auto) Not Reportable [place] % (Auto) Not Reportable Eos % (Auto) Not Reportable Baso % (Auto) Not Reportable Absolute Neuts (auto) Not Reportable Absolute Lymphs (auto) Not Reportable Absolute Monos (auto) Not Reportable Absolute Eos (auto) Not Reportable Absolute Basos (auto) Not Reportable Total Counted 100 Seg Neutrophils % Not Reportable Seg Neuts % (Manual) 79 H Band Neutrophils % 2 L Lymphocytes % (Manual) 16 Monocytes % (Manual) 3 Eosinophils % (Manual) 0 Basophils % (Manual) 0 Abs Neuts (Manual) 7.4 Abs Lymphs (Manual) 1.5 Abs Monocytes (Manual) 0.3 Absolute Eos (Manual) 0.0 Abs Basophils (Manual) 0.0 Nucleated RBCs 1 Platelet Comment ADEQUATE Anisocytosis 2+ PT Cancelled INR Cancelled INR (Anticoag Therapy) Cancelled VBG pH VBG pCO2 VBG HCO3 VBG Base Excess Sodium 137.9 Potassium 4.4 Chloride 104 Carbon Dioxide 14 L Anion Gap 20 H BUN 16 Creatinine 0.93 Est GFR ( Amer) > 60 Est GFR (MDRD) Non-Af > 60 Glucose 119 H POC Glucose Lactic Acid Calcium 5.7 L* Phosphorus Total Bilirubin 0.7 Direct Bilirubin 0.4 Neonat Total Bilirubin 0.3 Neonat Direct Bilirubin 0.0 Neonat Indirect Bili 0.3 AST 117 H ALT 12 Alkaline Phosphatase 4065 H Total Protein 6.3 Albumin 3.1 L Urine Color Urine Appearance Urine pH Ur Specific Byron Urine Protein Urine Glucose (UA) Urine Ketones Urine Blood Urine Nitrite Urine Bilirubin Urine Urobilinogen Ur Leukocyte Esterase Urine WBC (Auto) Urine RBC (Auto) U Hyaline Cast (Auto) Urine Bacteria (Auto) Squamous Epi Cells Auto Urine Mucus (Auto) Urine Ascorbic Acid Influenza A (Rapid) Influenza B (Rapid) 12/08/19 12/08/19 12/08/19 19:36 19:54 20:11 WBC RBC Hgb Hct MCV MCH MCHC RDW Plt Count Lymph % (Auto) [place] % (Auto) Eos % (Auto) Baso % (Auto) Absolute Neuts (auto) Absolute Lymphs (auto) Absolute Monos (auto) Absolute Eos (auto) Absolute Basos (auto) Total Counted Seg Neutrophils % Seg Neuts % (Manual) Band Neutrophils % Lymphocytes % (Manual) Monocytes % (Manual) Eosinophils % (Manual) Basophils % (Manual) Abs Neuts (Manual) Abs Lymphs (Manual) Abs Monocytes (Manual) Absolute Eos (Manual) Abs Basophils (Manual) Nucleated RBCs Platelet Comment Anisocytosis PT 18.4 H INR 1.51 INR (Anticoag Therapy) VBG pH 7.36 VBG pCO2 28.5 L VBG HCO3 15.8 L VBG Base Excess -8.1 Sodium Potassium Chloride Carbon Dioxide Anion Gap BUN Creatinine Est GFR ( Amer) Est GFR (MDRD) Non-Af Glucose POC Glucose Lactic Acid 1.7 Calcium Phosphorus Total Bilirubin Direct Bilirubin Neonat Total Bilirubin Neonat Direct Bilirubin Neonat Indirect Bili AST ALT Alkaline Phosphatase Total Protein Albumin Urine Color Urine Appearance Urine pH Ur Specific Byron Urine Protein Urine Glucose (UA) Urine Ketones Urine Blood Urine Nitrite Urine Bilirubin Urine Urobilinogen Ur Leukocyte Esterase Urine WBC (Auto) Urine RBC (Auto) U Hyaline Cast (Auto) Urine Bacteria (Auto) Squamous Epi Cells Auto Urine Mucus (Auto) Urine Ascorbic Acid Influenza A (Rapid) Influenza B (Rapid) 12/08/19 12/08/19 12/08/19 21:54 21:54 22:40 WBC RBC Hgb Hct MCV MCH MCHC RDW Plt Count Lymph % (Auto) [place] % (Auto) Eos % (Auto) Baso % (Auto) Absolute Neuts (auto) Absolute Lymphs (auto) Absolute Monos (auto) Absolute Eos (auto) Absolute Basos (auto) Total Counted Seg Neutrophils % Seg Neuts % (Manual) Band Neutrophils % Lymphocytes % (Manual) Monocytes % (Manual) Eosinophils % (Manual) Basophils % (Manual) Abs Neuts (Manual) Abs Lymphs (Manual) Abs Monocytes (Manual) Absolute Eos (Manual) Abs Basophils (Manual) Nucleated RBCs Platelet Comment Anisocytosis PT INR INR (Anticoag Therapy) VBG pH VBG pCO2 VBG HCO3 VBG Base Excess Sodium Potassium Chloride Carbon Dioxide Anion Gap BUN Creatinine Est GFR ( Amer) Est GFR (MDRD) Non-Af Glucose POC Glucose Lactic Acid 1.7 Calcium Phosphorus Total Bilirubin Direct Bilirubin Neonat Total Bilirubin Neonat Direct Bilirubin Neonat Indirect Bili AST ALT Alkaline Phosphatase Total Protein Albumin Urine Color YELLOW Urine Appearance SLIGHTLY-CLOUDY Urine pH 6.0 Ur Specific Byron 1.012 Urine Protein 100 H Urine Glucose (UA) NEGATIVE Urine Ketones 20 H Urine Blood SMALL H Urine Nitrite NEGATIVE Urine Bilirubin NEGATIVE Urine Urobilinogen NEGATIVE Ur Leukocyte Esterase NEGATIVE Urine WBC (Auto) 9 Urine RBC (Auto) 7 U Hyaline Cast (Auto) 1 Urine Bacteria (Auto) TRACE Squamous Epi Cells Auto 1 Urine Mucus (Auto) RARE Urine Ascorbic Acid NEGATIVE Influenza A (Rapid) NEGATIVE Influenza B (Rapid) NEGATIVE 12/09/19 12/09/19 12/09/19 01:49 08:35 11:22 WBC RBC Hgb Hct MCV MCH MCHC RDW Plt Count Lymph % (Auto) [place] % (Auto) Eos % (Auto) Baso % (Auto) Absolute Neuts (auto) Absolute Lymphs (auto) Absolute Monos (auto) Absolute Eos (auto) Absolute Basos (auto) Total Counted Seg Neutrophils % Seg Neuts % (Manual) Band Neutrophils % Lymphocytes % (Manual) Monocytes % (Manual) Eosinophils % (Manual) Basophils % (Manual) Abs Neuts (Manual) Abs Lymphs (Manual) Abs Monocytes (Manual) Absolute Eos (Manual) Abs Basophils (Manual) Nucleated RBCs Platelet Comment Anisocytosis PT INR INR (Anticoag Therapy) VBG pH VBG pCO2 VBG HCO3 VBG Base Excess Sodium Potassium Chloride Carbon Dioxide Anion Gap BUN Creatinine Est GFR ( Amer) Est GFR (MDRD) Non-Af Glucose POC Glucose 122 H 208 H Lactic Acid 0.9 Calcium Phosphorus Total Bilirubin Direct Bilirubin Neonat Total Bilirubin Neonat Direct Bilirubin Neonat Indirect Bili AST ALT Alkaline Phosphatase Total Protein Albumin Urine Color Urine Appearance Urine pH Ur Specific [place] Urine Protein Urine Glucose (UA) Urine Ketones Urine Blood Urine Nitrite Urine Bilirubin Urine Urobilinogen Ur Leukocyte Esterase Urine WBC (Auto) Urine RBC (Auto) U Hyaline Cast (Auto) Urine Bacteria (Auto) Squamous Epi Cells Auto Urine Mucus (Auto) Urine Ascorbic Acid Influenza A (Rapid) Influenza B (Rapid) 12/09/19 12/09/19 13:37 16:03 WBC RBC Hgb Hct MCV MCH MCHC RDW Plt Count Lymph % (Auto) [place] % (Auto) Eos % (Auto) Baso % (Auto) Absolute Neuts (auto) Absolute Lymphs (auto) Absolute Monos (auto) Absolute Eos (auto) Absolute Basos (auto) Total Counted Seg Neutrophils % Seg Neuts % (Manual) Band Neutrophils % Lymphocytes % (Manual) Monocytes % (Manual) Eosinophils % (Manual) Basophils % (Manual) Abs Neuts (Manual) Abs Lymphs (Manual) Abs Monocytes (Manual) Absolute Eos (Manual) Abs Basophils (Manual) Nucleated RBCs Platelet Comment Anisocytosis PT INR INR (Anticoag Therapy) VBG pH VBG pCO2 VBG HCO3 VBG Base Excess Sodium Potassium Chloride Carbon Dioxide Anion Gap BUN Creatinine Est GFR ( Amer) Est GFR (MDRD) Non-Af Glucose POC Glucose 140 H Lactic Acid Calcium Phosphorus 2.8 Total Bilirubin Direct Bilirubin Neonat Total Bilirubin Neonat Direct Bilirubin Neonat Indirect Bili AST ALT Alkaline Phosphatase Total Protein Albumin Urine Color Urine Appearance Urine pH Ur Specific [place] Urine Protein Urine Glucose (UA) Urine Ketones Urine Blood Urine Nitrite Urine Bilirubin Urine Urobilinogen Ur Leukocyte Esterase Urine WBC (Auto) Urine RBC (Auto) U Hyaline Cast (Auto) Urine Bacteria (Auto) Squamous Epi Cells Auto Urine Mucus (Auto) Urine Ascorbic Acid Influenza A (Rapid) Influenza B (Rapid) IMPRESSION/RECOMMENDATION: 1. Supraventricular tachycardia. Most likely AV mkie reentry tachycardia versus low ectopic atrial tachycardia. The patient at present after adenosine and 1 dose of digoxin 0.25 mg IV push was converted to sinus tachycardia. His blood pressure also has come up. We will continue the patient on verapamil. Will give an extra dose of digoxin. 2. Severe pain due to bony metastasis. 3. 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 4. Recalcitrant hypocalcemia.: Consider IV replacement of calcium. 5. Cardiomyopathy most likely secondary to hypocalcemia and supraventricular tachycardia. Medication reviewed. Medication regimen and management plan discussed with Dr. Haney. Medical decision making is of high complexity. 60 minutes spent as patient more than 50% time spent direct patient care. Will follow.
--- NOTE | 2019-12-09 19:04 | PDOC H&P ---
History of Present Illness Admission Date/PCP: 12/08/19 21:08 KENZIE KRYSTLE Patient complains of: Pelvic pain, Fever History of Present Illness: MARIAA ALCANTAR JR is a 69 year old male patient known to my practice with history of metastatic prostate cancer and brain involvement who presented to the ED with more than usual new onset pelvic pain. He denied any recent fall, trauma, or instrumentation. He demonstrated urinary retention upon presentation with agustina dder US revealing urine volume over 1liter in the bladder with eroding bladder wall. Currently has indwelling Amanda catheter. He denied any recent voiding problem, recurrent hematuria, or flank pain. Patient expressed more concern about his pelvic pain. He denied any nausea, vomiting, diarrhea or constipation. His appetite and oral intake remain poor. His initial evaluation was significant for severe hypocalcemia, elevated AST and alkaline phosphatase that is related to his bone metastases. He was advised hospitalization for further evaluation and management. His morbidities are listed below. Past Medical History Cardiac Medical History: Reports: Hyperlipidema, Hypertension Denies: Coronary Artery Disease, Myocardial Infarction Pulmonary Medical History: Reports: Pneumonia - "years ago" Denies: Asthma, Bronchitis, Chronic Obstructive Pulmonary Disease (COPD) Neurological Medical History: Denies: Seizures Malignancy Medical History: Reports: Pancreatic Cancer GI Medical History: Denies: Hepatitis, Hiatal Hernia Musculoskeltal Medical History: Reports: Arthritis - Shoulder Psychiatric Medical History: Denies: Depression Hematology: Denies: Anemia, Sickle Cell Disease Past Surgical History Past Surgical History: Reports: Orthopedic Surgery - Lt knee, Other - Craniotomy; Placement of mediport Denies: Pacemaker Social History Smoking Status: Former Smoker Electronic Cigarette use?: No Number of Years Smokin Last Time Smoked: 05/11/19 Frequency of Alcohol Use: None Hx Recreational Drug Use: No Drugs: None Hx Prescription Drug Abuse: No - Advance Directive Resuscitation Status: Full Code Family History Family History: Reviewed & Not Pertinent, Hypertension Parental Family History Reviewed: Yes Children Family History Reviewed: Yes Sibling(s) Family History Reviewed.: Yes Medication/Allergy Home Medications: Ergocalciferol (Vitamin D2) [Drisdol 50,000 unit (1.25MG) Capsule] 50,000 unit PO MO 11/04/19 Granisetron [Sancuso] 1 patch TD ASDIR PRN 11/04/19 Insulin Glargine,Hum.rec.anlog [Lantus Insulin 100 Unit/1 ml 10 ml] 24 units SQ QHS 11/04/19 Levetiracetam [Keppra 500 mg Tablet] 500 mg PO Q12 11/04/19 Linagliptin [Tradjenta] 5 mg PO DAILY 11/04/19 Oxycodone HCl [Oxy-Ir 5 mg Tablet] 10 mg PO Q3HP PRN 11/04/19 Prednisone 10 mg PO DAILY 11/04/19 Tamsulosin HCl [Flomax 0.4 mg Cap.sr] 0.4 mg PO QPM 11/04/19 Fentanyl [Duragesic 25 mcg/hr Transdermal Patch] 1 patch TOP Q3D 11/17/19 Rosuvastatin Calcium [Crestor 20 mg Tablet] 20 mg PO QHS 11/17/19 Calcium Carbonate [Os-Daniele 500 mg Tablet (Oyster-Shell)] 500 mg PO TID #90 tablet 11/28/19 Verapamil HCl [Calan Sr 120 mg Tablet.sa] 120 mg PO Q12 #60 tablet.sa 11/28/19 Loratadine [Claritin 10 mg Tablet] 10 mg PO DAILY 12/08/19 Allergies/Adverse Reactions: No Known Allergies Allergy (Verified 06/13/19 18:36) Review of Systems Constitutional: PRESENT: anorexia, fatigue, weakness Eyes: ABSENT: visual disturbances Ears: ABSENT: hearing changes Nose, Mouth, and Throat: ABSENT: headache(s), sore throat, vertigo Cardiovascular: ABSENT: chest pain, dyspnea on exertion, edema, orthropnea, palpitations Gastrointestinal: ABSENT: abdominal pain, constipation, diarrhea, hematemesis, hematochezia, nausea, vomiting Genitourinary: ABSENT: dysuria, hematuria Musculoskeletal: ABSENT: joint swelling Integumentary: ABSENT: rash, wounds Neurological: ABSENT: abnormal gait, abnormal speech, confusion, dizziness, focal weakness, syncope Psychiatric: ABSENT: anxiety, depression, homidical ideation, suicidal ideation Endocrine: ABSENT: cold intolerance, heat intolerance, polydipsia, polyuria Hematologic/Lymphatic: ABSENT: easy bleeding, easy bruising, lymphadenopathy Allergic/Immunologic: ABSENT: seasonal rhinorrhea Physical Exam Vital Signs: Temp Pulse Resp BP Pulse Ox 102.0 F H 143 H 20 113/71 97 12/09/19 08:03 12/09/19 08:03 12/09/19 08:03 12/09/19 08:03 12/09/19 08:03 Intake & Output 12/08/19 12/09/19 12/10/19 06:59 06:59 06:59 Intake Total 2300 Output Total 800 Balance 1500 Weight 63 kg General appearance: PRESENT: mild distress - due to his pain level Head exam: PRESENT: atraumatic, normocephalic Eye exam: PRESENT: conjunctiva pink, EOMI, PERRLA. ABSENT: scleral icterus Ear exam: PRESENT: normal external ear exam Mouth exam: PRESENT: moist Respiratory exam: PRESENT: clear to auscultation rebecca, decreased breath sounds - at lung bases Cardiovascular exam: PRESENT: +S1, +S2, tachycardia Vascular exam: ABSENT: pallor GI/Abdominal exam: PRESENT: normal bowel sounds, soft. ABSENT: distended, guarding, mass, organolmegaly, rebound, tenderness Rectal exam: PRESENT: deferred Extremities exam: ABSENT: pedal edema Musculoskeletal exam: PRESENT: deformity - related to multiple joints involvement with arthritis Neurological exam: PRESENT: alert, awake, oriented to person, oriented to place, oriented to time, oriented to situation, CN II-XII grossly intact. ABSENT: motor sensory deficit Psychiatric exam: PRESENT: appropriate affect, normal mood. ABSENT: homicidal ideation, suicidal ideation Skin exam: PRESENT: dry, warm Results Laboratory Results: 12/08/19 19:36 12/08/19 19:36 12/08/19 12/08/19 12/08/19 19:36 19:36 19:36 WBC 9.1 RBC 4.20 L Hgb 11.8 L Hct 35.4 L MCV 84 MCH 28.0 MCHC 33.2 RDW 20.0 H Plt Count 191 Seg Neutrophils % Not Reportable VBG pH VBG pCO2 VBG HCO3 VBG Base Excess Sodium 137.9 Potassium 4.4 Chloride 104 Carbon Dioxide 14 L Anion Gap 20 H BUN 16 Creatinine 0.93 Est GFR ( Amer) > 60 Glucose 119 H Lactic Acid 1.7 Calcium 5.7 L* Total Bilirubin 0.7 AST 117 H Alkaline Phosphatase 4065 H Total Protein 6.3 Albumin 3.1 L Urine Color Urine Appearance Urine pH Ur Specific [place] Urine Protein Urine Glucose (UA) Urine Ketones Urine Blood Urine Nitrite Ur Leukocyte Esterase Urine WBC (Auto) Urine RBC (Auto) 12/08/19 12/08/19 12/08/19 19:54 21:54 22:40 WBC RBC Hgb Hct MCV MCH MCHC RDW Plt Count Seg Neutrophils % VBG pH 7.36 VBG pCO2 28.5 L VBG HCO3 15.8 L VBG Base Excess -8.1 Sodium Potassium Chloride Carbon Dioxide Anion Gap BUN Creatinine Est GFR ( Amer) Glucose Lactic Acid 1.7 Calcium Total Bilirubin AST Alkaline Phosphatase Total Protein Albumin Urine Color YELLOW Urine Appearance SLIGHTLY-CLOUDY Urine pH 6.0 Ur Specific [place] 1.012 Urine Protein 100 H Urine Glucose (UA) NEGATIVE Urine Ketones 20 H Urine Blood SMALL H Urine Nitrite NEGATIVE Ur Leukocyte Esterase NEGATIVE Urine WBC (Auto) 9 Urine RBC (Auto) 7 12/09/19 01:49 WBC RBC Hgb Hct MCV MCH MCHC RDW Plt Count Seg Neutrophils % VBG pH VBG pCO2 VBG HCO3 VBG Base Excess Sodium Potassium Chloride Carbon Dioxide Anion Gap BUN Creatinine Est GFR ( Amer) Glucose Lactic Acid 0.9 Calcium Total Bilirubin AST Alkaline Phosphatase Total Protein Albumin Urine Color Urine Appearance Urine pH Ur Specific [place] Urine Protein Urine Glucose (UA) Urine Ketones Urine Blood Urine Nitrite Ur Leukocyte Esterase Urine WBC (Auto) Urine RBC (Auto) Assessment & Plan - Diagnosis (1) Fever Qualifiers: Fever type: fever of unknown origin following delivery Qualified Code(s): O86.4 - Pyrexia of unknown origin following delivery Is this a current diagnosis for this admission?: Yes Plan: See admitting attending physician orders for details about care plan. (2) Hypocalcemia Is this a current diagnosis for this admission?: Yes Plan: See admitting attending physician orders for details about care plan. (3) Paroxysmal SVT (supraventricular tachycardia) Is this a current diagnosis for this admission?: Yes Plan: See admitting attending physician orders for details about care plan. (4) Malignant neoplasm of prostate metastatic to bone Is this a current diagnosis for this admission?: Yes Plan: See admitting attending physician orders for details about care plan. (5) Metastasis to brain Is this a current diagnosis for this admission?: Yes Plan: See admitting attending physician orders for details about care plan. (6) Pain due to malignant neoplasm metastatic to bone Is this a current diagnosis for this admission?: Yes Plan: See admitting attending physician orders for details about care plan. (7) Diabetes mellitus type 2 in nonobese Is this a current diagnosis for this admission?: Yes Plan: See admitting attending physician orders for details about care plan. (8) HTN (hypertension) Qualifiers: Hypertension type: essential hypertension Qualified Code(s): I10 - Essential (primary) hypertension Is this a current diagnosis for this admission?: Yes Plan: See admitting attending physician orders for details about care plan. (9) HLD (hyperlipidemia) Qualifiers: Hyperlipidemia type: pure hypertriglyceridemia Qualified Code(s): E78.1 - Pure hyperglyceridemia Is this a current diagnosis for this admission?: Yes Plan: See admitting attending physician orders for details about care plan. - Time Time Spent: 50 to 70 Minutes Medications reviewed and adjusted accordingly: Yes Anticipated discharge: Home with Homehealth, Hospice Within: Other - Inpatient Certification Based on my medical assessment, after consideration of the patient's comorbidities, presenting symptoms, or acuity I expect that the services needed warrant INPATIENT care.: Yes I certify that my determination is in accordance with my understanding of Medicare's requirements for reasonable and necessary INPATIENT services [42 CFR 412.3e].: Yes Medical Necessity: Significant Comorbidiites Make Outpatient Treatment Too Risky, Need Close Monitoring Due to Risk of Patient Decompensation, Need For IV Fluids, Need For Continuous Telemetry Monitoring, Need for Pain Control, Need for IV Antibiotics, Risk of Complication if Not Cared For in Hospital, Risk of Diagnosis Which Will Require Inpatient Eval/Care/Monitoring Post Hospital Care: D/C Thread Cutter Documentation, D/C or Transfer Summary - Plan Summary Plan Summary: See admitting attending physician orders for details about care plan.
[2019-12-09] MEDS ORDERED: CALCIUM GLUCONATE 1000 MG/10 ML INJ IV ONE (19:36)
[2019-12-10] MEDS: VERAPAMIL HCL 120 MG TABLET PO SCH (01:09)
[2019-12-10] MEDS ORDERED: DILTIAZEM HCL/D5W 125 MG/125 ML RTUINJ IV PRN (01:38)
[2019-12-10] MEDS: CALCIUM GLUCONATE 1 GM/NS 50 ML RTU IV SCH ×6 (02:16→09:18)
[2019-12-10] MEDS: ACETAMINOPHEN SOLN 325 MG/10.15 ML UDCUP PO PRN ×2 (02:31→16:33)
[2019-12-10] MEDS ORDERED: RINGERS SOLUTION,LACTATED 1,000 ML IV ONE ×5 (05:30→19:30)
[2019-12-10 06:03] LABS: ABSOLUTE LYMPHOCYTES (AUTO) 0.3 10^3/uL (0.5-4.7); ABSOLUTE MONOCYTES (AUTO) 0.5 10^3/uL (0.1-1.4); BASOPHILS % (AUTO) 0.3 % (0-2); EOSINOPHILS % (AUTO) 0.3 % (0-6); HEMATOCRIT 31.2 % (37.9-51.0); HEMOGLOBIN 10.4 g/dL (13.5-17.0); LYMPHOCYTES % (AUTO) 5.1 % (13-45); MEAN CORPUSCULAR HEMOGLOBIN 28.1 pg (27.0-33.4); MEAN CORPUSCULAR HGB CONC 33.5 g/dL (32.0-36.0); MEAN CORPUSCULAR VOLUME 84 fl (80-97); MONOCYTES % (AUTO) 8.6 % (3-13); PLATELET COUNT 158 10^3/uL (150-450); RED BLOOD COUNT 3.71 10^6/uL (4.35-5.55); RED CELL DISTRIBUTION WIDTH 19.2 % (11.5-14.0); SEGMENTED NEUTROPHILS % (AUTO) 85.7 % (42-78); TOTAL CELLS COUNTED % (AUTO) 100 %; WHITE BLOOD COUNT 5.8 10^3/uL (4.0-10.5)
[2019-12-10 06:11] LABS: ALBUMIN 2.6 g/dL (3.5-5.0); ANION GAP 13 (5-19); BLOOD UREA NITROGEN 12 mg/dL (7-20); CARBON DIOXIDE 18 mmol/L (22-30); CHLORIDE 108 mmol/L (98-107); GLUCOSE 143 mg/dL (75-110); PHOSPHORUS 2.4 mg/dL (2.5-4.5); POTASSIUM 3.7 mmol/L (3.6-5.0)
--- NOTE | 2019-12-10 06:18 | RADIOLOGY REPORT (SQ) ---
CLINICAL HISTORY: r/o pneumonia COMPARISON: 11/18/2019. 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 Lungs are clear without consolidation, atelectasis, mass or edema. There is no pleural effusion. There is no pneumothorax. There are no acute osseous findings. Left chest port is unchanged. IMPRESSION: Clear lungs.
[2019-12-10 06:23] LABS: CALCIUM 5.9 mg/dL (8.4-10.2)
[2019-12-10] MEDS: HEPARIN SOD (PORCINE) 5,000 UNIT/ML 1 ML VIAL SUBCUT SCH ×3 (06:34→22:12)
[2019-12-10] MEDS: PANTOPRAZOLE SODIUM 40 MG TABLET.DR PO SCH (06:34)
[2019-12-10] MEDS ORDERED: CALCIUM CHLORIDE 10% PF/INJ 1000 MG/10 ML SDV IV SCH (07:30)
[2019-12-10] MEDS: OXYCODONE HCL IR 5 MG TABLET PO PRN ×2 (08:06→13:49)
[2019-12-10] MEDS ORDERED: POTASSIUM PHOS M BASIC D BASIC IV ONE (09:00)
[2019-12-10] MEDS ORDERED: NORMAL SALINE IV ONE (09:00)
[2019-12-10] MEDS: INSULIN LISPRO 100 UNIT/ML 3 ML VIAL SUBCUT SCH ×4 (09:15→22:32)
--- NOTE | 2019-12-10 09:20 | EKG REPORT ---
SEVERITY:- ABNORMAL ECG - ECTOPIC ATRIAL TACHYCARDIA LOW VOLTAGE IN FRONTAL LEADS BORDERLINE T WAVE ABNORMALITIES : Confirmed by: Massiel Marcum 10-Dec-2019 09:18:53
[2019-12-10] MEDS: FENTANYL 25 MCG/HR PATCH.TD72 TOP SCH (09:56)
[2019-12-10] MEDS: LEVETIRACETAM 500 MG TABLET PO SCH ×2 (10:00→22:12)
[2019-12-10] MEDS: VANCOMYCIN HCL 500 MG in DEXTROSE 5%-WATER 100 ML IV SCH (10:00)
[2019-12-10] MEDS: CALCIUM CARBONATE 500 MG TABLET PO SCH ×3 (10:00→18:18)
[2019-12-10] MEDS: CEFEPIME HCL 2 GM in DEXTROSE 5%-WATER 50 ML IV SCH (10:01)
--- NOTE | 2019-12-10 10:16 | CDI QUERY ---
<ADRIANA SU - Last Filed: 12/10/19 10:12> CDI Query CDI Review: Dear Dr. Haney: To better reflect your patients severity of illness, morbidity, and resource utilization Please specify and document in the Progress Notes and Discharge Summary if you are monitoring / treating / evaluating any of the following conditions: The terms probable, suspected, likely, possible or still to be ruled out may be used if you are unable to determine the exact nature of a condition. Query Clinical indicators Please indicate in your Progress Notes if: Sepsis present on admission Sepsis ruled out Unable to determine Per ED Provider note: Current picture most consistent with sepsis and uncontrolled pain. Could be PE but patient is not short of breath. Will resuscitate keep broad- spectrum antibiotic sepsis work-up, treat pain, and watch for SVT or other arrhythmias. Sepsis Qualifiers: Sepsis type: sepsis due to unspecified organism Sepsis acute organ dysfunction status: unspecified Qualified Code(s): A41.9 - Sepsis, unspecified organism Thank you, Clinical Documentation Physician Advisors YANA Acosta RN, BSN RN Office [phone] Office [phone] <KENZIE HANEY - Last Filed: 12/16/19 13:11> CDI Query Agree with Query: No - Please let the ED physician sign what he thinks in his opion. Derek.
[2019-12-10] MEDS: RINGERS SOLUTION,LACTATED 1,000 ML IV PRN ×2 (10:34→18:53)
[2019-12-10] MEDS ORDERED: VANCOMYCIN HCL 0 MG in DEXTROSE 5%-WATER 250 ML IV NR (11:00)
--- NOTE | 2019-12-10 11:16 | CRITICAL CARE ADMISSION REPORT ---
HPI Date:: 12/10/19 - Critical Care Attending Reason for ICU Reason:: hypotension, tachycardia HPI: Pt is a 69 man with metastatic prostate cancer with brain and bone mets. He presented to the ED with worsening pelvic pain. In the ED, he was found to have urinary retention. A martin catheter was placed and over 1 liter of urine was drained. He was also in SVT. He underwent treatment with adenosine. This am, pt developed worsening tachycardia and became more hypotensive. ICU transfer was requested. Upon admission to the ICU, pt received several liters of IVF. His pulse is now in the low 100s and his SBP is in the 100s. He currently c/o pain. His sister was at the bedside. - Diagnosis/Plan (1) Paroxysmal SVT (supraventricular tachycardia) Is this a current diagnosis for this admission?: Yes (2) Hypotension Qualifiers: Hypotension type: unspecified hypotension type Qualified Code(s): I95.9 - Hypotension, unspecified Is this a current diagnosis for this admission?: Yes (3) Prostate cancer metastatic to bone Is this a current diagnosis for this admission?: Yes (4) prostate cancer metastatic to brain Is this a current diagnosis for this admission?: Yes (5) Sepsis Qualifiers: Sepsis type: sepsis due to unspecified organism Sepsis acute organ dysfunction status: unspecified Qualified Code(s): A41.9 - Sepsis, unspecified organism Is this a current diagnosis for this admission?: Yes (6) Urinary retention Is this a current diagnosis for this admission?: Yes Past Medical History Cardiac Medical History: Reports: Hyperlipidema, Hypertension Denies: Coronary Artery Disease, Myocardial Infarction Pulmonary Medical History: Reports: Pneumonia - "years ago" Denies: Asthma, Bronchitis, Chronic Obstructive Pulmonary Disease (COPD) Neurological Medical History: Denies: Seizures Malignancy Medical History: Reports: Other - prostate cancer with bone and brain mets GI Medical History: Denies: Hepatitis, Hiatal Hernia Musculoskeltal Medical History: Reports: Arthritis - Shoulder Psychiatric Medical History: Denies: Depression Hematology: Denies: Anemia, Sickle Cell Disease Past Surgical History Past Surgical History: Reports: Orthopedic Surgery - Lt knee, Other - Craniotomy; Placement of mediport Denies: Pacemaker Social/Family History - Social History Smoking Status: Former Smoker Number of Years Smokin Last Time Smoked: 05/11/19 Frequency of Alcohol Use: None Hx Recreational Drug Use: No Drugs: None Hx Prescription Drug Abuse: No - Medication/Allergies Home Medications: Ergocalciferol (Vitamin D2) [Drisdol 50,000 unit (1.25MG) Capsule] 50,000 unit PO MO 11/04/19 Granisetron [Sancuso] 1 patch TD ASDIR PRN 11/04/19 Insulin Glargine,Hum.rec.anlog [Lantus Insulin 100 Unit/1 ml 10 ml] 24 units SQ QHS 11/04/19 Levetiracetam [Keppra 500 mg Tablet] 500 mg PO Q12 11/04/19 Linagliptin [Tradjenta] 5 mg PO DAILY 11/04/19 Oxycodone HCl [Oxy-Ir 5 mg Tablet] 10 mg PO Q3HP PRN 11/04/19 Prednisone 10 mg PO DAILY 11/04/19 Tamsulosin HCl [Flomax 0.4 mg Cap.sr] 0.4 mg PO QPM 11/04/19 Fentanyl [Duragesic 25 mcg/hr Transdermal Patch] 1 patch TOP Q3D 11/17/19 Rosuvastatin Calcium [Crestor 20 mg Tablet] 20 mg PO QHS 11/17/19 Calcium Carbonate [Os-Daniele 500 mg Tablet (Oyster-Shell)] 500 mg PO TID #90 tablet 11/28/19 Verapamil HCl [Calan Sr 120 mg Tablet.sa] 120 mg PO Q12 #60 tablet.sa 11/28/19 Loratadine [Claritin 10 mg Tablet] 10 mg PO DAILY 12/08/19 Allergies/Adverse Reactions: No Known Allergies Allergy (Verified 06/13/19 18:36) Physical Exam Vital Signs: Temp Pulse Resp BP Pulse Ox 99.5 F 105 H 16 118/76 100 12/10/19 08:00 12/10/19 10:00 12/10/19 10:00 12/10/19 10:00 12/10/19 10:00 Intake & Output 12/09/19 12/10/19 12/11/19 06:59 06:59 06:59 Intake Total 2300 1610 Output Total 237 998 6009 Balance 1500 735 -1280 Weight 63 kg 61.9 kg Weight/Height Weight 61.9 kg Height 5 ft 11 in General appearance: PRESENT: no acute distress, well-developed, well-nourished Head exam: PRESENT: normocephalic, other - right craniotomy scar Respiratory exam: PRESENT: clear to auscultation reebcca, unlabored Cardiovascular exam: PRESENT: RRR Gentrourinary exam: PRESENT: indwelling catheter Extremities exam: PRESENT: other - no pre-tibial edema Musculoskeletal exam: PRESENT: normal inspection Laboratory/Radiographs Laboratory Results: 12/10/19 05:35 12/10/19 05:35 12/09/19 12/10/19 12/10/19 13:37 05:35 05:35 WBC 5.8 RBC 3.71 L Hgb 10.4 L Hct 31.2 L MCV 84 MCH 28.1 MCHC 33.5 RDW 19.2 H Plt Count 158 Seg Neutrophils % 85.7 H Sodium 139.1 Potassium 3.7 Chloride 108 H Carbon Dioxide 18 L Anion Gap 13 BUN 12 Creatinine 0.87 Est GFR ( Amer) > 60 Glucose 143 H Calcium 5.9 L* Ionized Calcium [place] Phosphorus 2.8 2.4 L Magnesium Albumin 2.6 L 12/10/19 12/10/19 05:35 09:15 WBC RBC Hgb Hct MCV MCH MCHC RDW Plt Count Seg Neutrophils % Sodium Potassium Chloride Carbon Dioxide Anion Gap BUN Creatinine Est GFR ( Amer) Glucose Calcium Ionized Calcium [place] 0.90 L Phosphorus Magnesium 1.5 L Albumin Impressions: Chest X-Ray 12/10/19 00:00 IMPRESSION: Clear lungs. EKG: . ECTOPIC ATRIAL TACHYCARDIA [LVOLF] . LOW VOLTAGE IN FRONTAL LEADS [T0NS] . BORDERLINE T WAVE ABNORMALITIES All labs, radiographs, diagnostic studies and EKGs were personally reviewed: Yes Critical Time Critical Time (minutes): 0 -: The care of a critically ill patient is dynamic. This note represents a static moment in the admission process. Orders and treatments may be given simultaneously and urgently, and time is not retention representative of the treatment process. This patient requires Critical Care secondary to life threatening organ or limb dysfunction. Without Critical Care services, the patient is at risk for increased mortality and morbidity. Provider Note Provider Note: Assessment: 69 yo man with metastatic prostate cancer with mets to bone and brain, SVT, tachycardia, sepsis, urinary retention, hypocalcemia, hypomagnesemia Plan: 1. Respiratory: stable on RA 2. CV: tachycardia, resolving. Now in sinus rhythm. Hypotension-resolving. Continue IVF. 3. Heme/onc: metastatic prostate cancer with bone and brain mets 4. Electrolytes: hypocalcemia, hypomagnesemia, hypophosphatemia. Replace calcium, magnesium, phosphorus 5. ID: fever,sepsis. Unclear source. 6. : metatastatic prostate cancer, urinary retention. Continue martin 6. Nutrition: regular diet 7. Prophylaxis: sq heparin 8. Disposition: continue to monitor in ICU.
[2019-12-10] MEDS ORDERED: VANCOMYCIN HCL 500 MG in DEXTROSE 5%-WATER 100 ML IV SCH ×2 (11:30→22:00)
[2019-12-10] MEDS: CEFEPIME 1 GM/D5W RTU 1 GM/50 ML RTUPB IV SCH ×2 (11:47→22:13)
[2019-12-10] MEDS: MAGNESIUM SULFATE/D5W 1 GM/100 ML RTUPB IV SCH ×4 (11:57→20:32)
[2019-12-10] MEDS ORDERED: ADENOSINE INJ/PF 6 MG/2 ML SDV IV ONE ×4 (16:39→21:24)
[2019-12-10] MEDS ORDERED: AMIODARONE HCL INJ 150 MG/3 ML VIAL IV ONE (16:55)
[2019-12-10] MEDS ORDERED: DEXTROSE 5%-WATER 250 ML with PHENYLEPHRINE HCL 40 MG IV PRN ×2 (17:30)
[2019-12-10] MEDS: DEXTROSE 5%-WATER 500 ML with AMIODARONE HCL 900 MG IV PRN ×2 (17:33)
[2019-12-10 17:47] LABS: ANION GAP 9 (5-19); BLOOD UREA NITROGEN 8 mg/dL (7-20); CARBON DIOXIDE 21 mmol/L (22-30); CHLORIDE 109 mmol/L (98-107); GLUCOSE 126 mg/dL (75-110); PHOSPHORUS 3.4 mg/dL (2.5-4.5)
[2019-12-10 17:56] LABS: CALCIUM 5.6 mg/dL (8.4-10.2)
[2019-12-10] MEDS ORDERED: PHENYLEPHRINE HCL INJ/PF 10 MG/1 ML SDV ONE (18:09)
[2019-12-10] MEDS: TAMSULOSIN HCL 0.4 MG CAP.SR.24H PO SCH (18:17)
[2019-12-10] MEDS ORDERED: COLCHICINE 0.6 MG TABLET PO ONE (19:00)
[2019-12-10] MEDS: MORPHINE SULFATE 10 MG/ML INJ IV PRN (19:52)
[2019-12-10] MEDS: CALCIUM GLUC IN NACL, ISO-OSM 1 GM/50 ML RTUPB IV SCH ×2 (19:52→20:31)
[2019-12-10] MEDS ORDERED: COLCHICINE 0.6 MG TABLET PO SCH (22:00)
[2019-12-10 22:41] LABS: VANCOMYCIN,TROUGH 6.4 ug/mL (5.0-20.0)
--- NOTE | 2019-12-11 00:31 | Progress Note ---
Provider Note Provider Note: CARDIOLOGY PROGRESS NOTE by Dr. Mavis Starkey on 12/10/2019. OBJECTIVE: The patient last night had recurrence of tachycardia. And and in spite of multiple doses of digoxin continues to be tachycardic. He also became hypotensive and developed a fever and hence was transferred to the ICU. In the ICU the patient's blood pressure did come up with IV fluid boluses. But he again remained in sustained atrial tachycardia. He was given adenosine 6 mg x 2 and each time the patient would go to a sinus rhythm and subsequently. In view of the patient's fever and the low blood pressure it is diagnosed that the patient has sepsis of unknown source and is being treated with antibiotics. The patient although he denies any chest pain discomfort is examination ICU shows a new pericardial rub. In spite of the low blood pressure there is no significant JVD and there is no clinical signs of tamponade. A limited echo shows that there is minimal amount of pericardial fluid suggesting that this is indeed pericarditis. Subsequently the patient was given a bolus of amiodarone and started on amiodarone infusion. The patient continues to be with atrial tachycardia and a heart rate of 150. Initially her blood pressure was low in the 83 and decision was made to start the patient on Ken-Synephrine but the patient's blood pressure did come up after a fluid bolus and then mean arterial pressure was greater than 65. Hence Ken-Synephrine was not started. With the patient still on the amiodarone drip which was temporarily held and the patient was given 6 mg of adenosine intravenously. This slowed the patient's heart rate and the patient developed sinus tachycardia and amiodarone drip was restarted and the patient has remained in sinus tachycardia. The patient throughout episode denies any chest pain discomfort. There is no shortness of breath. His potassium and magnesium which were low has also been replaced. PHYSICAL EXAMINATION: The patient appears to be chronically ill and malnourished. But in no acute distress. Selected Entries 12/10/19 12/10/19 12/10/19 16:00 16:13 16:27 Temperature 101.4 F H Temperature Oral Source Pulse Rate 138 H Heart Rate ( 140 Monitors) Respiratory 18 Rate Respiratory Effort Blood Pressure 101/70 Blood Pressure 97/77 L [Right Upper Arm] Blood Pressure 80 Mean Blood Pressure Supine Position [Right Upper Arm] O2 Sat by Pulse 100 100 100 Oximetry Oxygen Delivery Room Air Method ( includes room air) Premature 0 Ventricular Counted Beats 12/10/19 12/10/19 12/10/19 16:28 17:31 18:00 Temperature 99.0 F Temperature Source Pulse Rate Heart Rate ( 136 Monitors) Respiratory 18 Rate Respiratory Normal Effort Blood Pressure 83/66 L Blood Pressure [Right Upper Arm] Blood Pressure 71 Mean Blood Pressure Position [Right Upper Arm] O2 Sat by Pulse 100 Oximetry Oxygen Delivery Method ( includes room air) Premature 0 Ventricular Counted Beats 12/10/19 12/10/19 19:00 19:37 Temperature 98 F Temperature Source Pulse Rate 154 H 117 Heart Rate ( Monitors) Respiratory Rate 18/min Respiratory Effort Blood Pressure Blood Pressure [Right Upper 92/79 Arm] Blood Pressure Mean 84 Blood Pressure Position [Right Upper Arm] O2 Sat by Pulse Oximetry 95% on room air Oxygen Delivery Method ( includes room air) Premature Ventricular Counted Beats IHEAD: Scar of prior right craniotomy present. Normocephalic. EYES: Pupils are equal round regular reactive to light and accommodation. There is conjunctival pallor. There is no scleral icterus. EARS: Tympanic membranes are intact. External auditory canals are clear. NOSE nose: There is no deviated nasal septum. There is no inflammation nasal mucous membrane. MOUTH: Mucous membranes of mouth are slightly dry. There is no bleeding from the gums. THROAT: There is no redness of the oropharynx. There is no exudates. SKIN: There is no petechia or ecchymosis. There is no skin lesions or skin rashes. NECK: Is supple. There is no JVD. Carotids are equal there is no bruit. There is no lymphadenopathy. There is no goiter. There is no accessory muscle respiration use. TRACHEA is central. LUNGS: Clear to auscultation percussion. Heart: S1-S2 is heard. There is no S3 gallop. There is no S4 gallop. There is mild mitral regurgitation murmur present. There is no aortic stenosis or aortic regurgitation murmur. There is no S3 gallop. There is no S4 gallop. S1 is of normal intensity. There is a definite pericardial rub. ABDOMEN: Soft nontender. There is no hepatosplenomegaly bowel sounds are well heard. EXTREMITIES: Femorals are well felt. There is no femoral bruits. Leg pulses well felt. There is no pedal edema. There is no DVT or cellulitis. There is no cyanosis or clubbing. LEVEL VIAL INSPECTOR AND TESTER: The patient is conscious awake alert oriented to place person and time. And also situation. He has weak upper extremity and lower extremity. No focal deficits though. PSYCHIATRIC: Patient is in spite of his low blood pressures judgment site seem to be intact. He does not appear to be anxious or agitated. Labs- All tests 24 hr 12/10/19 12/10/19 12/10/19 05:35 05:35 05:35 WBC 5.8 RBC 3.71 L Hgb 10.4 L Hct 31.2 L MCV 84 MCH 28.1 MCHC 33.5 RDW 19.2 H Plt Count 158 Lymph % (Auto) 5.1 L [place] % (Auto) 8.6 Eos % (Auto) 0.3 Baso % (Auto) 0.3 Absolute Neuts (auto) 5.0 Absolute Lymphs (auto) 0.3 L Absolute Monos (auto) 0.5 Absolute Eos (auto) 0.0 Absolute Basos (auto) 0.0 Seg Neutrophils % 85.7 H ESR Sodium 139.1 Potassium 3.7 Chloride 108 H Carbon Dioxide 18 L Anion Gap 13 BUN 12 Creatinine 0.87 Est GFR ( Amer) > 60 Est GFR (MDRD) Non-Af > 60 Glucose 143 H POC Glucose Calcium 5.9 L* Ionized Calcium Yola Phosphorus 2.4 L Magnesium 1.5 L C-Reactive Protein Albumin 2.6 L Time Trough Drawn Vancomycin Trough 12/10/19 12/10/19 12/10/19 08:23 09:15 11:18 WBC RBC Hgb Hct MCV MCH MCHC RDW Plt Count Lymph % (Auto) [place] % (Auto) Eos % (Auto) Baso % (Auto) Absolute Neuts (auto) Absolute Lymphs (auto) Absolute Monos (auto) Absolute Eos (auto) Absolute Basos (auto) Seg Neutrophils % ESR Sodium Potassium Chloride Carbon Dioxide Anion Gap BUN Creatinine Est GFR ( Amer) Est GFR (MDRD) Non-Af Glucose POC Glucose 129 H 129 H Calcium Ionized Calcium Yola 0.90 L Phosphorus Magnesium C-Reactive Protein Albumin Time Trough Drawn Vancomycin Trough 12/10/19 12/10/19 12/10/19 16:36 17:00 19:10 WBC RBC Hgb Hct MCV MCH MCHC RDW Plt Count Lymph % (Auto) [place] % (Auto) Eos % (Auto) Baso % (Auto) Absolute Neuts (auto) Absolute Lymphs (auto) Absolute Monos (auto) Absolute Eos (auto) Absolute Basos (auto) Seg Neutrophils % ESR Sodium 139.2 Potassium 4.0 Chloride 109 H Carbon Dioxide 21 L Anion Gap 9 BUN 8 Creatinine 0.72 Est GFR ( Amer) > 60 Est GFR (MDRD) Non-Af > 60 Glucose 126 H POC Glucose 142 H Calcium 5.6 L* Ionized Calcium Yola Phosphorus 3.4 Magnesium 1.6 C-Reactive Protein 384.3 H Albumin Time Trough Drawn Vancomycin Trough 12/10/19 12/10/19 12/10/19 19:10 21:50 21:50 WBC RBC Hgb Hct MCV MCH MCHC RDW Plt Count Lymph % (Auto) [place] % (Auto) Eos % (Auto) Baso % (Auto) Absolute Neuts (auto) Absolute Lymphs (auto) Absolute Monos (auto) Absolute Eos (auto) Absolute Basos (auto) Seg Neutrophils % ESR 103 H Sodium Potassium Chloride Carbon Dioxide Anion Gap BUN Creatinine 0.67 Est GFR ( Amer) > 60 Est GFR (MDRD) Non-Af > 60 Glucose POC Glucose Calcium Ionized Calcium Yola Phosphorus Magnesium C-Reactive Protein Albumin Time Trough Drawn 2150 Vancomycin Trough 6.4 12/10/19 22:28 WBC RBC Hgb Hct MCV MCH MCHC RDW Plt Count Lymph % (Auto) [place] % (Auto) Eos % (Auto) Baso % (Auto) Absolute Neuts (auto) Absolute Lymphs (auto) Absolute Monos (auto) Absolute Eos (auto) Absolute Basos (auto) Seg Neutrophils % ESR Sodium Potassium Chloride Carbon Dioxide Anion Gap BUN Creatinine Est GFR ( Amer) Est GFR (MDRD) Non-Af Glucose POC Glucose 155 H Calcium Ionized Calcium Yola Phosphorus Magnesium C-Reactive Protein Albumin Time Trough Drawn Vancomycin Trough Chest X-Ray 12/10/19 00:00 IMPRESSION: Clear lungs. LIMITED follow-up echocardiogram: There is a small amount of pericardial effusion suggestive of pericarditis. Although not a very good study ejection fraction is most likely moderately reduced at 35 to 40%. MPRESSION/RECOMMENDATION: 1. Supraventricular tachycardia. Most likely AV mike reentry tachycardia versus low ectopic atrial tachycardia. The patient at present after adenosine and 1 dose of digoxin 0.25 mg IV push was converted to sinus tachycardia. We will continue the patient on amiodarone drip. 2. Pericarditis. Echocardiographic shows no significant pericardial effusion only a trace pericardial effusion. Hence we will start the patient on colchicine. In view of the patient being on amiodarone will decrease the patient's colchicine to 0.6 mg only once a day. 3. 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 4. Recalcitrant hypocalcemia.: Continue IV replacement of calcium. 5. Cardiomyopathy most likely secondary to hypocalcemia and supraventricular tachycardia. Quick look on the echo shows that the ejection fraction is probably around 35 to 40% moderately reduced. 6. Sepsis: Source not identified. Continue antibiotics and IV fluids. 7. Severe pain due to bony metastasis. Discussed the clinical condition with the patient's family. Discussed with Dr. Haney and the chef saucier Dr. Joaquin. Medical decision making is of high complexity. This is in view of the multiple injections of adenosine given directly under my supervision with me being at the patient's bedside, and starting the patient on amiodarone drip. 50 minutes spent on the patient with more than 50% time spent direct patient care. Will follow.
[2019-12-11] MEDS: OXYCODONE HCL IR 5 MG TABLET PO PRN ×4 (04:17→16:36)
[2019-12-11 04:23] LABS: HEMATOCRIT 32.4 % (37.9-51.0); HEMOGLOBIN 10.7 g/dL (13.5-17.0); MEAN CORPUSCULAR HEMOGLOBIN 27.6 pg (27.0-33.4); MEAN CORPUSCULAR VOLUME 84 fl (80-97); PLATELET COUNT 161 10^3/uL (150-450); RED BLOOD COUNT 3.87 10^6/uL (4.35-5.55); RED CELL DISTRIBUTION WIDTH 19.7 % (11.5-14.0); WHITE BLOOD COUNT 4.8 10^3/uL (4.0-10.5)
[2019-12-11 04:38] LABS: ANION GAP 10 (5-19); BLOOD UREA NITROGEN 9 mg/dL (7-20); CARBON DIOXIDE 22 mmol/L (22-30); CHLORIDE 106 mmol/L (98-107); GLUCOSE 107 mg/dL (75-110); POTASSIUM 3.8 mmol/L (3.6-5.0)
[2019-12-11] MEDS: HEPARIN SOD (PORCINE) 5,000 UNIT/ML 1 ML VIAL SUBCUT SCH ×3 (05:23→21:49)
[2019-12-11] MEDS: PANTOPRAZOLE SODIUM 40 MG TABLET.DR PO SCH (05:23)
[2019-12-11] MEDS: INSULIN LISPRO 100 UNIT/ML 3 ML VIAL SUBCUT SCH ×4 (07:40→22:35)
[2019-12-11] MEDS: RINGERS SOLUTION,LACTATED 1,000 ML IV PRN ×2 (08:01→16:38)
[2019-12-11] MEDS: CEFEPIME 1 GM/D5W RTU 1 GM/50 ML RTUPB IV SCH ×2 (09:26→21:48)
[2019-12-11] MEDS: CALCIUM CARBONATE 500 MG TABLET PO SCH ×3 (09:26→18:07)
[2019-12-11] MEDS: LEVETIRACETAM 500 MG TABLET PO SCH ×2 (09:26→21:49)
[2019-12-11] MEDS: CALCIUM GLUC IN NACL, ISO-OSM 1 GM/50 ML RTUPB IV SCH ×4 (09:26→18:12)
--- NOTE | 2019-12-11 10:32 | PDOC CRITICAL CARE PROG REPORT ---
General Date:: 12/11/19 - Critical Care Attending Note Resuscitation Status: Full Code Events in the past 12 to 24 Hours:: Pt went back into SVT last night and got adenosine by Dr. Mcdaniel. Remains on amidoarone infusion. Is off jenna. C/o pain. Reason for ICU Addmission:: hypotension, tachycardia - Medications: Medications reviewed and adjusted accordingly: Yes Physical Exam Vital Signs: Temp Pulse Resp BP Pulse Ox 100.0 F 123 H 15 93/79 L 100 12/11/19 10:00 12/11/19 10:00 12/11/19 10:00 12/11/19 10:00 12/11/19 10:00 Intake & Output 12/10/19 12/11/19 12/12/19 06:59 06:59 06:59 Intake Total 1610 2419 458 Output Total 875 5400 420 Balance 735 -2981 38 Weight 61.9 kg 67.6 kg Weight/Height Weight 67.6 kg Height 5 ft 11 in General appearance: PRESENT: no acute distress, well-developed, well-nourished Head exam: PRESENT: normocephalic, other - right craniotomy scar Respiratory exam: PRESENT: clear to auscultation rebecca, unlabored Cardiovascular exam: PRESENT: tachycardia GI/Abdominal exam: PRESENT: soft Gentrourinary exam: PRESENT: indwelling catheter Musculoskeletal exam: PRESENT: other - trace pretibial edema Neurological exam: PRESENT: alert, awake Laboratory/Radiographs Laboratory Results: 12/11/19 04:07 12/11/19 04:07 12/10/19 12/10/19 12/10/19 17:00 19:10 21:50 WBC RBC Hgb Hct MCV MCH MCHC RDW Plt Count Sodium 139.2 Potassium 4.0 Chloride 109 H Carbon Dioxide 21 L Anion Gap 9 BUN 8 Creatinine 0.72 0.67 Est GFR ( Amer) > 60 > 60 Glucose 126 H Calcium 5.6 L* Ionized Calcium Yola Phosphorus 3.4 Magnesium 1.6 C-Reactive Protein 384.3 H 12/11/19 12/11/19 12/11/19 04:07 04:07 04:37 WBC 4.8 RBC 3.87 L Hgb 10.7 L Hct 32.4 L MCV 84 MCH 27.6 MCHC 33.0 RDW 19.7 H Plt Count 161 Sodium 138.3 Potassium 3.8 Chloride 106 Carbon Dioxide 22 Anion Gap 10 BUN 9 Creatinine 0.64 Est GFR ( Amer) > 60 Glucose 107 Calcium 6.0 L* Ionized Calcium Yola 0.83 L Phosphorus Magnesium 1.8 C-Reactive Protein Impressions: Chest X-Ray 12/10/19 00:00 IMPRESSION: Clear lungs. 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 Respiratory: stable on RA 2. CV: SVT. s/p adenosine by Dr. Mcdaniel. Is on amiodarone infusion. Has cardiomyopathy and EF of around 30% per Dr. Mcdaniel 3. Heme/onc: metastatic prostate cancer with bone and brain mets 4. Electrolytes: hypocalcemia, replace calcium. Repeat electrolytes later today 5. ID: fever,sepsis. Unclear source. 6. : metatastatic prostate cancer, urinary retention. Continue martin 6. Nutrition: regular diet 7. Prophylaxis: sq heparin 8. Ethics: remains full code. Palliative care consulted Critical Time Critical Time (minutes): 0 - level 3 hospital follow-up Level of Care: ICU -: 1. The care of a critical patient is a dynamic process. This note is a insurance healthcare representative synopsis but static in nature. The timeframe for treatments given in order is not necessarily the actual time these treatments may have been done. 2. This patient requires critical care secondary to ongoing requirements for therapy not offered or safe outside the critical care environment. Transfer to a lower level of care will result in altered life or limb morbidity and mortality. 3. Multidisciplinary rounds completed. 4. ABCDE bundle addressed.
[2019-12-11] MEDS: VANCOMYCIN HCL 1,000 MG in DEXTROSE 5%-WATER 250 ML IV SCH ×2 (10:41→21:49)
--- NOTE | 2019-12-11 13:06 | EKG REPORT ---
SEVERITY:- ABNORMAL ECG - SINUS TACHYCARDIA LOW VOLTAGE IN FRONTAL LEADS NONSPECIFIC T ABNORMALITIES, LATERAL LEADS : Confirmed by: Massiel Marcum 11-Dec-2019 13:05:15
[2019-12-11] MEDS ORDERED: VERAPAMIL HCL INJ/PF 5 MG/2 ML SDV IV ONE (14:21)
[2019-12-11] MEDS ORDERED: DIGOXIN INJ 0.5 MG/2 ML AMPULE IV ONE (14:53)
[2019-12-11] MEDS ORDERED: DIGOXIN INJ 0.5 MG/2 ML AMPULE ONE (14:54)
[2019-12-11 15:12] LABS: ANION GAP 12 (5-19); BLOOD UREA NITROGEN 8 mg/dL (7-20); CARBON DIOXIDE 22 mmol/L (22-30); CHLORIDE 104 mmol/L (98-107); GLUCOSE 150 mg/dL (75-110); POTASSIUM 3.9 mmol/L (3.6-5.0)
[2019-12-11 15:37] LABS: CALCIUM 6.2 mg/dL (8.4-10.2)
[2019-12-11] MEDS: DEXTROSE 5%-WATER 500 ML with AMIODARONE HCL 900 MG IV PRN ×2 (16:26)
[2019-12-11] MEDS ORDERED: COLCHICINE 0.6 MG TABLET PO SCH (18:00)
[2019-12-11] MEDS: TAMSULOSIN HCL 0.4 MG CAP.SR.24H PO SCH (18:12)
[2019-12-11] MEDS ORDERED: ADENOSINE INJ/PF 6 MG/2 ML SDV IV ONE (22:00)
[2019-12-12] MEDS: RINGERS SOLUTION,LACTATED 1,000 ML IV PRN ×2 (00:58→09:00)
[2019-12-12] MEDS ORDERED: METOPROLOL TARTRATE PF/INJ 5 MG/5 ML SDV IV ONE ×2 (01:03→01:15)
[2019-12-12] MEDS ORDERED: DIGOXIN INJ 0.5 MG/2 ML AMPULE ONE (01:09)
[2019-12-12] MEDS ORDERED: DIGOXIN INJ 0.5 MG/2 ML AMPULE IV ONE (01:30)
[2019-12-12] MEDS ORDERED: ADENOSINE INJ/PF 6 MG/2 ML SDV IV ONE ×2 (01:50→02:00)
[2019-12-12] MEDS ORDERED: MAGNESIUM SULFATE/D5W 1 GM/100 ML RTUPB IV ONE ×2 (01:50→02:00)
[2019-12-12] MEDS: HEPARIN SOD (PORCINE) 5,000 UNIT/ML 1 ML VIAL SUBCUT SCH ×3 (06:14→22:40)
[2019-12-12] MEDS: PANTOPRAZOLE SODIUM 40 MG TABLET.DR PO SCH (06:14)
[2019-12-12 07:50] LABS: HEMATOCRIT 32.4 % (37.9-51.0); HEMOGLOBIN 10.6 g/dL (13.5-17.0); MEAN CORPUSCULAR HEMOGLOBIN 27.7 pg (27.0-33.4); MEAN CORPUSCULAR HGB CONC 32.8 g/dL (32.0-36.0); MEAN CORPUSCULAR VOLUME 84 fl (80-97); PLATELET COUNT 156 10^3/uL (150-450); RED BLOOD COUNT 3.84 10^6/uL (4.35-5.55); RED CELL DISTRIBUTION WIDTH 19.4 % (11.5-14.0); WHITE BLOOD COUNT 4.2 10^3/uL (4.0-10.5)
[2019-12-12 08:05] LABS: ANION GAP 10 (5-19); BLOOD UREA NITROGEN 8 mg/dL (7-20); CARBON DIOXIDE 23 mmol/L (22-30); CHLORIDE 109 mmol/L (98-107); GLUCOSE 133 mg/dL (75-110); PHOSPHORUS 2.3 mg/dL (2.5-4.5)
[2019-12-12 08:31] LABS: CALCIUM 6.6 mg/dL (8.4-10.2)
[2019-12-12] MEDS ORDERED: POTASSIUM PHOS,M-BASIC-D-BASIC 30 MMOL in NORMAL SALINE 500 ML IV ONE (10:30)
[2019-12-12] MEDS: INSULIN LISPRO 100 UNIT/ML 3 ML VIAL SUBCUT SCH ×4 (10:50→22:20)
--- NOTE | 2019-12-12 11:01 | PDOC CRITICAL CARE PROG REPORT ---
General Date:: 12/12/19 - Critical Care Progress Note Resuscitation Status: Full Code Events in the past 12 to 24 Hours:: Was still tachycardic yesterday. Got more adenosine per Dr. Mcdaniel. Still r eplacing electrolytes. Pt has no complaints. Reason for ICU Addmission:: hypotension, tachycardia - Medications: Medications reviewed and adjusted accordingly: Yes Physical Exam Vital Signs: Temp Pulse Resp BP Pulse Ox 98.8 F 100 21 H 99/68 L 99 12/12/19 10:00 12/12/19 10:00 12/12/19 10:00 12/12/19 10:00 12/12/19 10:00 Intake & Output 12/11/19 12/12/19 12/13/19 06:59 06:59 06:59 Intake Total 2419 3507 Output Total 5400 3735 500 Balance -2981 -228 -500 Weight 67.6 kg 69.8 kg Weight/Height Weight 69.8 kg Height 5 ft 11 in General appearance: PRESENT: no acute distress, well-developed, well-nourished Head exam: PRESENT: normocephalic, other - right craniotomy scar Respiratory exam: PRESENT: rhonchi, unlabored Cardiovascular exam: PRESENT: tachycardia GI/Abdominal exam: PRESENT: soft Gentrourinary exam: PRESENT: indwelling catheter Neurological exam: PRESENT: alert, awake Laboratory/Radiographs Laboratory Results: 12/12/19 06:20 12/12/19 06:20 12/11/19 12/11/19 12/12/19 14:36 14:44 06:20 WBC RBC Hgb Hct MCV MCH MCHC RDW Plt Count Sodium 137.9 141.7 Potassium 3.9 4.0 Chloride 104 109 H Carbon Dioxide 22 23 Anion Gap 12 10 BUN 8 8 Creatinine 0.68 0.65 Est GFR ( Amer) > 60 > 60 Glucose 150 H 133 H Calcium 6.2 L* 6.6 L* Ionized Calcium Yola 0.92 L Phosphorus 2.3 L Magnesium 1.7 1.8 12/12/19 12/12/19 06:20 06:20 WBC 4.2 RBC 3.84 L Hgb 10.6 L Hct 32.4 L MCV 84 MCH 27.7 MCHC 32.8 RDW 19.4 H Plt Count 156 Sodium Potassium Chloride Carbon Dioxide Anion Gap BUN Creatinine Est GFR ( Amer) Glucose Calcium Ionized Calcium Yola 0.95 L Phosphorus Magnesium Impressions: Chest X-Ray 12/10/19 00:00 IMPRESSION: Clear lungs. 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 Respiratory: stable on RA 2. CV: SVT. s/p adenosine by Dr. Mcdaniel. Is on amiodarone infusion. Rate is better controlled. Has cardiomyopathy and EF of around 30% per Dr. Mcdaniel 3. Heme/onc: metastatic prostate cancer with bone and brain mets 4. Electrolytes: hypocalcemia, hypomagnesemia, hypophosphatemia. Replace electroyles 5. ID: fever,sepsis. Unclear source. Continue vanc and cefepime 6. : metatastatic prostate cancer, urinary retention. Continue martin 6. Nutrition: regular diet 7. Prophylaxis: sq heparin 8. Ethics: remains full code. Palliative care consulted 9. Continue to monitor in ICU. Critical Time Critical Time (minutes): 0 Level of Care: ICU -: 1. The care of a critical patient is a dynamic process. This note is a wholesale representative synopsis but static in nature. The timeframe for treatments given in order is not necessarily the actual time these treatments may have been done. 2. This patient requires critical care secondary to ongoing requirements for therapy not offered or safe outside the critical care environment. Transfer to a lower level of care will result in altered life or limb morbidity and mortal ity. 3. Multidisciplinary rounds completed. 4. ABCDE bundle addressed.
[2019-12-12] MEDS: CEFEPIME 1 GM/D5W RTU 1 GM/50 ML RTUPB IV SCH ×2 (11:10→22:21)
[2019-12-12] MEDS: VANCOMYCIN HCL 1,000 MG in DEXTROSE 5%-WATER 250 ML IV SCH ×2 (11:14→22:21)
[2019-12-12] MEDS: CALCIUM CARBONATE 500 MG TABLET PO SCH ×3 (11:15→17:31)
[2019-12-12] MEDS: LEVETIRACETAM 500 MG TABLET PO SCH ×2 (11:15→22:21)
[2019-12-12] MEDS: CALCIUM GLUC IN NACL, ISO-OSM 1 GM/50 ML RTUPB IV SCH ×2 (11:15→13:41)
[2019-12-12] MEDS: MAGNESIUM SULFATE/D5W 1 GM/100 ML RTUPB IV SCH ×2 (11:16→12:52)
[2019-12-12] MEDS: COLCHICINE 0.6 MG TABLET PO SCH (15:34)
[2019-12-12] MEDS: MORPHINE SULFATE 10 MG/ML INJ IV PRN ×2 (17:23→22:21)
[2019-12-12] MEDS: TAMSULOSIN HCL 0.4 MG CAP.SR.24H PO SCH (17:29)
--- NOTE | 2019-12-12 21:16 | Progress Note ---
Provider Note Provider Note: CARDIOLOGY PROGRESS NOTE by Dr. Mavis Starkey on 12/12/2019. SUBJECTIVE: The patient denies any chest pain discomfort. There is no shortness of breath. There is no PND orthopnea. On examination today there is a. No pericardial rub heard. Although the sed rate still seems to be high. The patient is reverted to sinus rhythm. Most likely the supraventricular cardia were secondary to pericarditis. In view of the patient's amiodarone drip being stopped will increase the patient's colchicine to 0.6 mg p.o. every 12 hours. There is no ventricle arrhythmia seen on the monitor. There is no TIA CVA symptoms. He still has pain due to bone mets. PHYSICAL EXAMINATION: The patient appears to be chronically ill. But seems to be in no acute distress. Selected Entries 12/12/19 12:00 Temperature 98.6 F Temperature Oral Source Pulse Rate 96 Respiratory 20 Rate Blood Pressure 108/62 [Right Upper Arm] Blood Pressure 77 Mean [Right Upper Arm] Blood Pressure Supine Position [Right Upper Arm] Blood Pressure 108 Systolic [Right Upper Arm] O2 Sat by Pulse 100 Oximetry Oxygen Delivery Room Air Method ( HEAD: Scar of prior right craniotomy present. Normocephalic. EYES: Pupils are equal round regular reactive to light and accommodation. There is conjunctival pallor. There is no scleral icterus. EARS: Tympanic membranes are intact. External auditory canals are clear. NOSE nose: There is no deviated nasal septum. There is no inflammation nasal mucous membrane. MOUTH: Mucous membranes of mouth are slightly dry. There is no bleeding from the gums. THROAT: There is no redness of the oropharynx. There is no exudates. SKIN: There is no petechia or ecchymosis. There is no skin lesions or skin rashes. NECK: Is supple. There is no JVD. Carotids are equal there is no bruit. There is no lymphadenopathy. There is no goiter. There is no accessory muscle respiration use. TRACHEA is central. LUNGS: Clear to auscultation percussion. Heart: S1-S2 is heard. There is no S3 gallop. There is no S4 gallop. There is mild mitral regurgitation murmur present. There is no aortic stenosis or aortic regurgitation murmur. There is no S3 gallop. There is no S4 gallop. S1 is of normal intensity. On today's exam there is no pericardial rub. ABDOMEN: Soft nontender. There is no hepatosplenomegaly bowel sounds are well heard. EXTREMITIES: Femorals are well felt. There is no femoral bruits. Leg pulses well felt. There is no pedal edema. There is no DVT or cellulitis. There is no cyanosis or clubbing. DISTILLERY MILLER: The patient is conscious awake alert oriented to place person and time. And also situation. He has weak upper extremity and lower extremity. No focal deficits though. PSYCHIATRIC: Patient is in spite of his low blood pressures judgment site seem to be intact. He does not appear to be anxious or agitated. Abnormal - 24 hr 12/12/19 12/12/19 12/12/19 06:20 06:20 06:20 RBC 3.84 L Hgb 10.6 L Hct 32.4 L RDW 19.4 H ESR Chloride 109 H Glucose 133 H POC Glucose Calcium 6.6 L* Ionized Calcium Yola 0.95 L Phosphorus 2.3 L 12/12/19 12/12/19 12/12/19 07:44 11:08 15:30 RBC Hgb Hct RDW ESR 111 H Chloride Glucose POC Glucose 122 H 141 H Calcium Ionized Calcium Yola Phosphorus 12/12/19 12/12/19 12/12/19 15:36 17:26 22:14 RBC Hgb Hct RDW ESR Chloride Glucose POC Glucose 121 H 111 H 126 H Calcium Ionized Calcium Yola Phosphorus Chest X-Ray 12/10/19 00:00 IMPRESSION: Clear lungs. IMPRESSION/RECOMMENDATION: 1. Acute pericarditis. This seems to have resolved. And the patient is converted to sinus rhythm. In view of the patient being off the amiodarone will increase the patient's colchicine to 0.6 mg p.o. every 12 hours. 2. Supraventricular tachycardia: This seems to have resolved. Patient in sinus rhythm. Most likely this is secondary to pericarditis. The patient's amiodarone has been discontinued. We will stop the patient's verapamil and change the patient to metoprolol 25 mg p.o. every 12 hours and increase as tolerated. 3. 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 4. Recalcitrant hypocalcemia.: Continue IV replacement of calcium. 5. Cardiomyopathy most likely secondary to hypocalcemia and supraventricular tachycardia. Quick look on the echo shows that the ejection fraction is probably around 35 to 40% moderately reduced. 6. Sepsis: Source not identified. Continue antibiotics and IV fluids. 7. Severe pain due to bony metastasis. Medications reviewed. Medications adjusted. Hence medical decision making is of high complexity. 40 minutes spent as patient more than 50% time spent in direct patient care. Discussed with network controller managing medical regimen and management plan. Also discussed with the patient's family. Will follow
[2019-12-12] MEDS: METOPROLOL SUCCINATE 25 MG TAB.SR.24H PO SCH (22:21)
[2019-12-13] MEDS: MORPHINE SULFATE 10 MG/ML INJ IV PRN ×3 (02:16→17:36)
[2019-12-13] MEDS: HEPARIN SOD (PORCINE) 5,000 UNIT/ML 1 ML VIAL SUBCUT SCH ×3 (06:09→22:24)
[2019-12-13] MEDS: RINGERS SOLUTION,LACTATED 1,000 ML IV PRN ×2 (06:09→19:23)
[2019-12-13] MEDS: PANTOPRAZOLE SODIUM 40 MG TABLET.DR PO SCH (06:09)
[2019-12-13] MEDS: OXYCODONE HCL IR 5 MG TABLET PO PRN (06:10)
[2019-12-13] MEDS: COLCHICINE 0.6 MG TABLET PO SCH ×2 (06:11→19:17)
[2019-12-13 06:42] LABS: MEAN CORPUSCULAR HEMOGLOBIN 28.2 pg (27.0-33.4); MEAN CORPUSCULAR HGB CONC 33.4 g/dL (32.0-36.0); MEAN CORPUSCULAR VOLUME 84 fl (80-97); PLATELET COUNT 126 10^3/uL (150-450); RED CELL DISTRIBUTION WIDTH 19.2 % (11.5-14.0); WHITE BLOOD COUNT 3.9 10^3/uL (4.0-10.5)
[2019-12-13 07:05] LABS: ANION GAP 7 (5-19); BLOOD UREA NITROGEN 7 mg/dL (7-20); CARBON DIOXIDE 26 mmol/L (22-30); CHLORIDE 109 mmol/L (98-107); GLUCOSE 110 mg/dL (75-110); PHOSPHORUS 2.1 mg/dL (2.5-4.5); POTASSIUM 3.6 mmol/L (3.6-5.0)
[2019-12-13 07:18] LABS: CALCIUM 6.1 mg/dL (8.4-10.2)
[2019-12-13] MEDS ORDERED: POTASSIUM CHLORIDE 10 MEQ TABLET.ER PO ONE ×2 (09:00→13:00)
[2019-12-13] MEDS ORDERED: MAGNESIUM OXIDE 400 MG TABLET PO ONE ×2 (09:00→12:15)
[2019-12-13] MEDS ORDERED: POTASSIUM PHOS,M-BASIC-D-BASIC 30 MMOL in NORMAL SALINE 500 ML IV ONE (10:00)
--- NOTE | 2019-12-13 10:34 | PDOC CRITICAL CARE PROG REPORT ---
General Date:: 12/13/19 - Critical Care Attending Resuscitation Status: Full Code Events in the past 12 to 24 Hours:: Pt had no more SVT yesterday. Is off amiodarone infusion. Had no complaints. Reason for ICU Addmission:: hypotension, tachycardia - Medications: Medications reviewed and adjusted accordingly: Yes Physical Exam Vital Signs: Temp Pulse Resp BP Pulse Ox 99.6 F 96 15 97/63 L 99 12/13/19 08:00 12/13/19 08:00 12/13/19 08:00 12/13/19 08:00 12/13/19 08:00 Intake & Output 12/12/19 12/13/19 12/14/19 06:59 06:59 06:59 Intake Total 3714 4014 Output Total 3735 2870 110 Balance -21 1144 -110 Weight 69.8 kg 68.2 kg Weight/Height Weight 68.2 kg Height 5 ft 11 in General appearance: PRESENT: no acute distress, well-developed, well-nourished Head exam: PRESENT: normocephalic Respiratory exam: PRESENT: clear to auscultation rebecca, unlabored Cardiovascular exam: PRESENT: RRR GI/Abdominal exam: PRESENT: soft Gentrourinary exam: PRESENT: indwelling catheter Extremities exam: PRESENT: other - no edema Neurological exam: PRESENT: alert, awake Laboratory/Radiographs Laboratory Results: 12/13/19 06:24 12/13/19 06:24 12/12/19 12/13/19 12/13/19 22:42 06:24 06:24 WBC RBC Hgb Hct MCV MCH MCHC RDW Plt Count Sodium 141.9 Potassium 3.6 Chloride 109 H Carbon Dioxide 26 Anion Gap 7 BUN 7 Creatinine 0.59 0.61 Est GFR ( Amer) > 60 > 60 Glucose 110 Calcium 6.1 L* Ionized Calcium Yola 1.00 L Phosphorus 2.1 L Magnesium 1.8 12/13/19 06:24 WBC 3.9 L RBC 3.20 L Hgb 9.0 L Hct 27.0 L MCV 84 MCH 28.2 MCHC 33.4 RDW 19.2 H Plt Count 126 L Sodium Potassium Chloride Carbon Dioxide Anion Gap BUN Creatinine Est GFR ( Amer) Glucose Calcium Ionized Calcium Yola Phosphorus Magnesium 12/10/19 05:45 Martin Catheter Urine Culture - Final NO GROWTH 2 DAYS Impressions: Chest X-Ray 12/10/19 00:00 IMPRESSION: Clear lungs. 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 Respiratory: stable on RA 2. CV: SVT. resolved. Pt is off amiodarone infusion. Heart rate and BP a cceptable 3. Heme/onc: metastatic prostate cancer with bone and brain mets 4. Electrolytes: hypocalcemia, hypomagnesemia, hypophosphatemia. Replace electroyles 5. ID: fever,sepsis. Unclear source. Continue vanc and cefepime 6. : metatastatic prostate cancer, urinary retention. Continue martin 6. Nutrition: regular diet 7. Prophylaxis: sq heparin 8. Ethics: remains full code. Palliative care consulted 9. Stable for transfer to telemetry bed. Critical Time Critical Time (minutes): 0 Level of Care: TELE -: 1. The care of a critical patient is a dynamic process. This note is a technical account representative synopsis but static in nature. The timeframe for treatments given in order is not necessarily the actual time these treatments may have been done. 2. This patient requires critical care secondary to ongoing requirements for therapy not offered or safe outside the critical care environment. Transfer to a lower level of care will result in altered life or limb morbidity and mortality. 3. Multidisciplinary rounds completed. 4. ABCDE bundle addressed.
[2019-12-13] MEDS: VANCOMYCIN HCL 1,000 MG in DEXTROSE 5%-WATER 250 ML IV SCH ×2 (12:03→22:23)
[2019-12-13] MEDS: CEFEPIME 1 GM/D5W RTU 1 GM/50 ML RTUPB IV SCH ×2 (12:03→22:23)
[2019-12-13] MEDS: METOPROLOL SUCCINATE 25 MG TAB.SR.24H PO SCH ×2 (12:04→23:40)
[2019-12-13] MEDS: CALCIUM GLUC IN NACL, ISO-OSM 1 GM/50 ML RTUPB IV SCH ×2 (12:04→13:09)
[2019-12-13] MEDS: FENTANYL 25 MCG/HR PATCH.TD72 TOP SCH (12:04)
[2019-12-13] MEDS: CALCIUM CARBONATE 500 MG TABLET PO SCH ×3 (12:04→17:46)
[2019-12-13] MEDS: LEVETIRACETAM 500 MG TABLET PO SCH ×2 (12:04→22:24)
[2019-12-13] MEDS: INSULIN LISPRO 100 UNIT/ML 3 ML VIAL SUBCUT SCH ×3 (12:30→22:24)
--- NOTE | 2019-12-13 16:13 | XCELERA REPORT ---
[address] [address] Transthoracic Echocardiogram Report Name: MARIAA ALCANTAR JR Age: 69 yrs Gender: Male : 1950 Patient Status: Inpatient Patient Location: ICU^605^A Study Date: 12/10/2019 05:18 PM Height: 71 in Weight: 136 lb BSA: 1.8 m2 Procedure: A limited two-dimensional transthoracic echocardiogram was performed (2D). Study Quality: Fair. Reason For Study: Limited echo for Pericarditis. History: Limited echo for Pericarditis. Ordering Physician: MAVIS HEARD Performed By: Mackenzie Peace Interpretation Summary A limited two-dimensional transthoracic echocardiogram was performed (2D). There is a very small pericardial effusion and hence there is evidence of pericarditis. Diffuse moderate global hypokinesis , with LVEF 35% to 40%. MMode/2D Measurements & Calculations RVDd: 2.7 cm LVIDd: 4.4 cm FS: 24.2 % Ao root diam: 3.6 cm IVSd: 1.2 cm LVIDs: 3.3 cm EDV(Teich): 85.6 ml Ao root area: 10.2 cm2 LVPWd: 1.1 cm ESV(Teich): 44.1 ml LA dimension: 2.4 cm EF(Teich): 48.5 % Effusions There is a very small pericardial effusion and hence there is evidence of pericarditis. Diffuse moderate global hypokinesis , with LVEF 35% to 40%. : MAVIS HEARD Lakshmi
--- NOTE | 2019-12-13 17:22 | Progress Note ---
Provider Note Provider Note: CARDIOLOGY PROGRESS NOTE by Dr. Mavis Mandel on 12/13/2019. SUBJECTIVE: The patient denies any chest pain discomfort. There is no PND orthopnea or shortness of breath. There is no recurrence of SVT. There is no pedal edema. He still has pain secondary to his bony metastasis from his prostate cancer. There is no atrial or ventricular arrhythmia seen on the monitor. PHYSICAL EXAMINATION: The patient is a frail build and appears to be chronically ill. But he is in no acute distress. Selected Entries 12/13/19 08:00 Temperature 99.6 F Temperature Oral Source Pulse Rate 96 Respiratory 15 Rate Blood Pressure 97/63 L [Right Upper Arm] Blood Pressure 74 Mean [Right Upper Arm] Blood Pressure Supine Position [Right Upper Arm] O2 Sat by Pulse 99 Oximetry Oxygen Delivery Room Air Method ( includes room air) HEAD: Scar of prior right craniotomy present. Normocephalic. EYES: Pupils are equal round regular reactive to light and accommodation. There is conjunctival pallor. There is no scleral icterus. EARS: Tympanic membranes are intact. External auditory canals are clear. NOSE nose: There is no deviated nasal septum. There is no inflammation nasal mucous membrane. MOUTH: Mucous membranes of mouth are slightly dry. There is no bleeding from the gums. THROAT: There is no redness of the oropharynx. There is no exudates. SKIN: There is no petechia or ecchymosis. There is no skin lesions or skin rashes. NECK: Is supple. There is no JVD. Carotids are equal there is no bruit. There is no lymphadenopathy. There is no goiter. There is no accessory muscle respiration use. TRACHEA is central. LUNGS: Clear to auscultation percussion. Heart: S1-S2 is heard. There is no S3 gallop. There is no S4 gallop. There is mild mitral regurgitation murmur present. There is no aortic stenosis or aortic regurgitation murmur. There is no S3 gallop. There is no S4 gallop. S1 is of normal intensity. There is no pericardial rub. ABDOMEN: Soft nontender. There is no hepatosplenomegaly bowel sounds are well heard. EXTREMITIES: Femorals are well felt. There is no femoral bruits. Leg pulses well felt. There is no pedal edema. There is no DVT or cellulitis. There is no cyanosis or clubbing. EXTENSION WORKER: The patient is conscious awake alert oriented to place person and time. And also situation. He has weak upper extremity and lower extremity. No focal deficits though. PSYCHIATRIC: Patient is in spite of his low blood pressures judgment site seem to be intact. He does not appear to be anxious or agitated. Abnormal - 24 hr 12/13/19 12/13/19 12/13/19 06:24 06:24 06:24 WBC 3.9 L RBC 3.20 L Hgb 9.0 L Hct 27.0 L RDW 19.2 H Plt Count 126 L Chloride 109 H POC Glucose Calcium 6.1 L* Ionized Calcium Yola 1.00 L Phosphorus 2.1 L 12/13/19 21:32 WBC RBC Hgb Hct RDW Plt Count Chloride POC Glucose 68 L Calcium Ionized Calcium Yola Phosphorus Labs- All tests 24 hr 12/13/19 12/13/19 12/13/19 06:24 06:24 06:24 WBC 3.9 L RBC 3.20 L Hgb 9.0 L Hct 27.0 L MCV 84 MCH 28.2 MCHC 33.4 RDW 19.2 H Plt Count 126 L Sodium 141.9 Potassium 3.6 Chloride 109 H Carbon Dioxide 26 Anion Gap 7 BUN 7 Creatinine 0.61 Est GFR ( Amer) > 60 Est GFR (MDRD) Non-Af > 60 Glucose 110 POC Glucose Calcium 6.1 L* Ionized Calcium Yola 1.00 L Phosphorus 2.1 L Magnesium 1.8 12/13/19 12/13/19 12/13/19 08:14 12:29 17:42 WBC RBC Hgb Hct MCV MCH MCHC RDW Plt Count Sodium Potassium Chloride Carbon Dioxide Anion Gap BUN Creatinine Est GFR ( Amer) Est GFR (MDRD) Non-Af Glucose POC Glucose 110 106 102 Calcium Ionized Calcium Yola Phosphorus Magnesium 12/13/19 12/13/19 12/13/19 21:32 22:00 22:31 WBC RBC Hgb Hct MCV MCH MCHC RDW Plt Count Sodium Potassium Chloride Carbon Dioxide Anion Gap BUN Creatinine Est GFR ( Amer) Est GFR (MDRD) Non-Af Glucose POC Glucose 68 L 72 77 Calcium Ionized Calcium Yola Phosphorus Magnesium 12/13/19 23:05 WBC RBC Hgb Hct MCV MCH MCHC RDW Plt Count Sodium Potassium Chloride Carbon Dioxide Anion Gap BUN Creatinine Est GFR ( Amer) Est GFR (MDRD) Non-Af Glucose POC Glucose 97 Calcium Ionized Calcium Yola Phosphorus Magnesium Chest X-Ray 12/10/19 00:00 IMPRESSION: Clear lungs. IMPRESSION/RECOMMENDATION: 1. Acute pericarditis. This seems to have resolved. And the patient is converted to sinus rhythm. In view of the patient being off the amiodarone will increase the patient's colchicine to 0.6 mg p.o. every 12 hours. 2. Supraventricular tachycardia: This seems to have resolved. Patient in sinus rhythm. Most likely this is secondary to pericarditis. The patient's amiodarone has been discontinued. We will stop the patient's verapamil and change the patient to metoprolol 25 mg p.o. every 12 hours and increase as tolerated. 3. 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 4. Recalcitrant hypocalcemia.: Continue IV replacement of calcium. 5. Cardiomyopathy most likely secondary to hypocalcemia and supraventricular tachycardia. Quick look on the echo shows that the ejection fraction is probably around 35 to 40% moderately reduced. 6. Sepsis: Source not identified. Continue antibiotics and IV fluids. 7. Severe pain due to bony metastasis. Medications reviewed. Medications adjusted. Hence medical decision making is of high complexity. 40 minutes spent as patient more than 50% time spent in direct patient care. Discussed with cracking machine operator managing medical regimen and management plan. Also discussed with the patient's family. Will follow
[2019-12-13] MEDS: TAMSULOSIN HCL 0.4 MG CAP.SR.24H PO SCH (17:46)
[2019-12-13] MEDS ORDERED: COLCHICINE 0.6 MG TABLET ONE (18:55)
[2019-12-14] MEDS: METOPROLOL SUCCINATE 25 MG TAB.SR.24H PO SCH ×3 (00:09→22:10)
[2019-12-14] MEDS ORDERED: METOPROLOL TARTRATE 25 MG TABLET PO ONE (02:45)
[2019-12-14] MEDS: PANTOPRAZOLE SODIUM 40 MG TABLET.DR PO SCH (05:31)
[2019-12-14] MEDS: COLCHICINE 0.6 MG TABLET PO SCH ×2 (05:31→18:27)
[2019-12-14] MEDS: RINGERS SOLUTION,LACTATED 1,000 ML IV PRN (05:31)
[2019-12-14] MEDS: HEPARIN SOD (PORCINE) 5,000 UNIT/ML 1 ML VIAL SUBCUT SCH ×3 (05:31→22:10)
[2019-12-14 06:13] LABS: HEMATOCRIT 28.4 % (37.9-51.0); HEMOGLOBIN 9.4 g/dL (13.5-17.0); MEAN CORPUSCULAR HEMOGLOBIN 27.8 pg (27.0-33.4); MEAN CORPUSCULAR VOLUME 84 fl (80-97); PLATELET COUNT 125 10^3/uL (150-450); RED BLOOD COUNT 3.38 10^6/uL (4.35-5.55); RED CELL DISTRIBUTION WIDTH 19.1 % (11.5-14.0); WHITE BLOOD COUNT 4.4 10^3/uL (4.0-10.5)
[2019-12-14 07:17] LABS: ANION GAP 5 (5-19); BLOOD UREA NITROGEN 5 mg/dL (7-20); CARBON DIOXIDE 24 mmol/L (22-30); CHLORIDE 113 mmol/L (98-107); GLUCOSE 97 mg/dL (75-110); PHOSPHORUS 2.1 mg/dL (2.5-4.5); POTASSIUM 3.9 mmol/L (3.6-5.0)
[2019-12-14 07:30] LABS: CALCIUM 5.8 mg/dL (8.4-10.2)
[2019-12-14] MEDS: CALCIUM GLUCONATE 1 GM/NS 50 ML RTU IV SCH ×3 (08:27→13:47)
[2019-12-14] MEDS: INSULIN LISPRO 100 UNIT/ML 3 ML VIAL SUBCUT SCH ×4 (09:25→22:04)
[2019-12-14] MEDS: CEFEPIME 1 GM/D5W RTU 1 GM/50 ML RTUPB IV SCH (11:33)
[2019-12-14] MEDS: LEVETIRACETAM 500 MG TABLET PO SCH ×2 (11:33→22:10)
[2019-12-14] MEDS: CALCIUM CARBONATE 500 MG TABLET PO SCH ×3 (11:42→18:27)
[2019-12-14] MEDS ORDERED: CALCIUM GLUC IN NACL, ISO-OSM 1 GM/50 ML RTUPB IV ONE (13:44)
[2019-12-14] MEDS: VANCOMYCIN HCL 1,000 MG in DEXTROSE 5%-WATER 250 ML IV SCH (15:10)
[2019-12-14] MEDS ORDERED: DIGOXIN INJ 0.5 MG/2 ML AMPULE IV ONE (16:30)
[2019-12-14] MEDS ORDERED: NORMAL SALINE 1000 ML 500 ML IV ONE (17:55)
--- NOTE | 2019-12-14 18:22 | Progress Note ---
Provider Note Provider Note: CARDIOLOGY PROGRESS NOTE by Dr. Mavis Mandel on 12/14/2019. OBJECTIVE: The patient still has tachycardia seems to have a heart rate of 126 bpm and seems to be an ectopic atrial rhythm. He denies any chest pain or discomfort. There is no shortness of breath. There is no PND orthopnea or leg edema. There is no ventricular arrhythmia seen on the monitor. PHYSICAL EXAMINATION: The patient is chronically ill appearing and a frail build. Selected Entries 12/14/19 03:55 Temperature 99.4 F Temperature Oral Source Pulse Rate 126 H Respiratory 18 Rate Blood Pressure 92/66 L Blood Pressure 74 Mean BP Location Left Arm BP Position Supine O2 Sat by Pulse 98 Oximetry Oxygen Delivery Room Air Method .HEAD: Scar of prior right craniotomy present. Normocephalic. EYES: Pupils are equal round regular reactive to light and accommodation. There is conjunctival pallor. There is no scleral icterus. EARS: Tympanic membranes are intact. External auditory canals are clear. NOSE nose: There is no deviated nasal septum. There is no inflammation nasal mucous membrane. MOUTH: Mucous membranes of mouth are slightly dry. There is no bleeding from the gums. THROAT: There is no redness of the oropharynx. There is no exudates. SKIN: There is no petechia or ecchymosis. There is no skin lesions or skin rashes. NECK: Is supple. There is no JVD. Carotids are equal there is no bruit. There is no lymphadenopathy. There is no goiter. There is no accessory muscle respiration use. TRACHEA is central. LUNGS: Clear to auscultation percussion. Heart: S1-S2 is heard. There is no S3 gallop. There is no S4 gallop. There is mild mitral regurgitation murmur present. There is no aortic stenosis or aortic regurgitation murmur. There is no S3 gallop. There is no S4 gallop. S1 is of normal intensity. There is no pericardial rub. ABDOMEN: Soft nontender. There is no hepatosplenomegaly bowel sounds are well heard. EXTREMITIES: Femorals are well felt. There is no femoral bruits. Leg pulses well felt. There is no pedal edema. There is no DVT or cellulitis. There is no cyanosis or clubbing. COVER ASSEMBLER: The patient is conscious awake alert oriented to place person and time. And also situation. He has weak upper extremity and lower extremity. No focal deficits though. PSYCHIATRIC: Patient is in spite of his low blood pressures judgment site seem to be intact. He does not appear to be anxious or agitated. Labs- All tests 24 hr 12/14/19 12/14/19 12/14/19 05:40 05:40 07:58 WBC 4.4 RBC 3.38 L Hgb 9.4 L Hct 28.4 L MCV 84 MCH 27.8 MCHC 33.0 RDW 19.1 H Plt Count 125 L Sodium 142.1 Potassium 3.9 Chloride 113 H Carbon Dioxide 24 Anion Gap 5 BUN 5 L Creatinine 0.56 Est GFR ( Amer) > 60 Est GFR (MDRD) Non-Af > 60 Glucose 97 POC Glucose 94 Calcium 5.8 L* Ionized Calcium Yola Phosphorus 2.1 L Magnesium 1.7 Albumin 12/14/19 12/14/19 12/14/19 08:13 08:47 11:14 WBC RBC Hgb Hct MCV MCH MCHC RDW Plt Count Sodium Potassium Chloride Carbon Dioxide Anion Gap BUN Creatinine Est GFR ( Amer) Est GFR (MDRD) Non-Af Glucose POC Glucose 101 Calcium Ionized Calcium Yola 0.90 L Phosphorus Magnesium Albumin 2.4 L 12/14/19 12/14/19 12/14/19 15:55 19:05 20:52 WBC RBC Hgb Hct MCV MCH MCHC RDW Plt Count Sodium 142.8 Potassium 3.5 L Chloride 114 H Carbon Dioxide 21 L Anion Gap 8 BUN 4 L Creatinine 0.55 Est GFR ( Amer) > 60 Est GFR (MDRD) Non-Af > 60 Glucose 93 POC Glucose 104 68 L Calcium 5.8 L* Ionized Calcium Yola Phosphorus Magnesium 1.6 Albumin 12/14/19 12/14/19 21:19 22:14 WBC RBC Hgb Hct MCV MCH MCHC RDW Plt Count Sodium Potassium Chloride Carbon Dioxide Anion Gap BUN Creatinine Est GFR ( Amer) Est GFR (MDRD) Non-Af Glucose POC Glucose 91 83 Calcium Ionized Calcium Yola Phosphorus Magnesium Albumin Chest X-Ray 12/10/19 00:00 IMPRESSION: Clear lungs. IMPRESSION/RECOMMENDATION: 1. Acute pericarditis. This seems to have resolved. And the patient is converted to sinus rhythm. In view of the patient being off the amiodarone will increase the patient's colchicine to 0.6 mg p.o. every 12 hours. 2. Supraventricular tachycardia: This atrial tachycardia seems to have recurred but with a slow rate. Will give 1 dose of digoxin 0.25 mg IV push. Continue patient on metoprolol. 3. 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 4. Recalcitrant hypocalcemia.: Continue IV replacement of calcium. 5. Cardiomyopathy most likely secondary to hypocalcemia and supraventricular tachycardia. Quick look on the echo shows that the ejection fraction is probably around 35 to 40% moderately reduced. 6. Sepsis: Source not identified. Continue antibiotics and IV fluids. 7. Severe pain due to bony metastasis. Medications reviewed. Medications adjusted. Hence medical decision making is of moderate to high complexity. 40 minutes spent as patient more than 50% time spent in direct patient care. Discussed with Dr. Haney medical regimen and management plan. Also discussed with the patient's family. Will follow
[2019-12-14] MEDS: TAMSULOSIN HCL 0.4 MG CAP.SR.24H PO SCH (18:27)
[2019-12-14] MEDS ORDERED: NORMAL SALINE 1000 ML 1,000 ML IV PRN (19:04)
[2019-12-14] MEDS ORDERED: DILTIAZEM HCL/D5W 125 MG/125 ML RTUINJ IV PRN (19:04)
[2019-12-14 19:40] LABS: ANION GAP 8 (5-19); BLOOD UREA NITROGEN 4 mg/dL (7-20); CARBON DIOXIDE 21 mmol/L (22-30); CHLORIDE 114 mmol/L (98-107); GLUCOSE 93 mg/dL (75-110); POTASSIUM 3.5 mmol/L (3.6-5.0)
[2019-12-14 20:04] LABS: CALCIUM 5.8 mg/dL (8.4-10.2)
--- NOTE | 2019-12-14 21:09 | PDOC PROGRESS REPORT ---
Subjective Progress Note for:: 12/14/19 Subjective:: Patient denied any chest pain or difficulty with breathing. There is ongoing tachycardia on the monitor at the time of my bedside evaluation despite administration of IV Digoxin as per Dr. Mcdaniel, director video, instruction to the nursing staff. No reported fever or chills. No nausea or vomiting. No abdominal pain. Reason For Visit: HYPOTENSION Physical Exam Vital Signs: Temp Pulse Resp BP Pulse Ox 99.4 F 126 H 18 92/66 L 98 12/14/19 03:55 12/14/19 03:55 12/14/19 03:55 12/14/19 03:55 12/14/19 03:55 Intake & Output 12/13/19 12/14/19 12/15/19 06:59 06:59 06:59 Intake Total 4014 2718 Output Total 2870 2260 Balance 1144 458 Weight 68.2 kg 72.5 kg Physical Exam: General appearance: PRESENT: no acute distress Head exam: PRESENT: atraumatic, normocephalic Eye exam: PRESENT: conjunctiva pink. ABSENT: pallor, scleral icterus Ear exam: PRESENT: normal external ear exam Mouth exam: PRESENT: moist Respiratory exam: PRESENT: clear to auscultation rebecca, decreased breath sounds - at lung bases Cardiovascular exam: PRESENT: +S1, +S2, tachycardia GI/Abdominal exam: PRESENT: normal bowel sounds, soft. ABSENT: distended, guarding, mass, organomegaly, rebound, tenderness Extremities exam: ABSENT: pedal edema Musculoskeletal exam: PRESENT: deformity - related to multiple joints involvement with arthritis Neurological exam: PRESENT: alert, awake, oriented to person, oriented to place, oriented to time, oriented to situation, CN II-XII grossly intact. ABSENT: motor sensory deficit Psychiatric exam: PRESENT: appropriate affect, normal mood. ABSENT: homicidal ideation, suicidal ideation Skin exam: PRESENT: dry, warm Results Laboratory Results: 12/14/19 05:40 12/14/19 05:40 12/14/19 12/14/19 05:40 05:40 WBC 4.4 RBC 3.38 L Hgb 9.4 L Hct 28.4 L MCV 84 MCH 27.8 MCHC 33.0 RDW 19.1 H Plt Count 125 L Sodium 142.1 Potassium 3.9 Chloride 113 H Carbon Dioxide 24 Anion Gap 5 BUN 5 L Creatinine 0.56 Est GFR ( Amer) > 60 Glucose 97 Calcium 5.8 L* Phosphorus 2.1 L Magnesium 1.7 12/08/19 20:36 Blood Blood Culture - Final NO GROWTH IN 5 DAYS 12/08/19 19:36 Blood Blood Culture - Final NO GROWTH IN 5 DAYS Impressions: Chest X-Ray 12/10/19 00:00 IMPRESSION: Clear lungs. 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 Is this a current diagnosis for this admission?: Yes (5) Metastasis to brain Is this a current diagnosis for this admission?: Yes (6) Pain due to malignant neoplasm metastatic to bone Is this a current diagnosis for this admission?: Yes (7) Diabetes mellitus type 2 in nonobese Is this a current diagnosis for this admission?: Yes (8) HTN (hypertension) Qualifiers: Hypertension type: essential hypertension Qualified Code(s): I10 - Essential (primary) hypertension Is this a current diagnosis for this admission?: Yes (9) HLD (hyperlipidemia) Qualifiers: Hyperlipidemia type: pure hypertriglyceridemia Qualified Code(s): E78.1 - Pure hyperglyceridemia Is this a current diagnosis for this admission?: Yes - Time Time Spent with patient: 35 or more minutes Level of Care: TELE Medications reviewed and adjusted accordingly: Yes Anticipated discharge: Home with Homehealth Within: Other - Inpatient Certification Based on my medical assessment, after consideration of the patient's comorbidities, presenting symptoms, or acuity I expect that the services needed warrant INPATIENT care.: Yes I certify that my determination is in accordance with my understanding of Medicare's requirements for reasonable and necessary INPATIENT services [42 CFR 412.3e].: Yes Medical Necessity: Significant Comorbidiites Make Outpatient Treatment Too Risky, Need Close Monitoring Due to Risk of Patient Decompensation, Need For Continuous Telemetry Monitoring, Risk of Complication if Not Cared For in Hosp ital, Risk of Diagnosis Which Will Require Inpatient Eval/Care/Monitoring Post Hospital Care: D/C Observatory Director Documentation - Plan Summary Plan Summary: Transfer to [facility] for closer monitoring and administration of IV medication of infusion as needed in view of his SVT. Continue all current medication management.
[2019-12-14] MEDS: POTASSI CL 20 MEQ/50 ML RIDER 20 MEQ/50 ML RTUPB IV SCH ×2 (22:09→23:48)
[2019-12-14] MEDS: MAGNESIUM SULFATE/D5W 1 GM/100 ML RTUPB IV SCH ×2 (22:10→23:38)
[2019-12-15] MEDS: CEFEPIME 1 GM/D5W RTU 1 GM/50 ML RTUPB IV SCH (02:03)
[2019-12-15] MEDS: RINGERS SOLUTION,LACTATED 1,000 ML IV PRN ×2 (02:06→09:54)
[2019-12-15] MEDS: VANCOMYCIN HCL 1,000 MG in DEXTROSE 5%-WATER 250 ML IV SCH (02:07)
[2019-12-15 03:31] LABS: C DIFFICILE GDH POSITIVE (NEGATIVE)
[2019-12-15] MEDS: VANCOMYCIN HCL INJ 500 MG VIAL PO SCH ×3 (06:16→17:30)
[2019-12-15] MEDS: COLCHICINE 0.6 MG TABLET PO SCH ×2 (06:17→17:30)
[2019-12-15] MEDS: METRONIDAZOLE 500 MG TABLET PO SCH ×3 (06:17→22:26)
[2019-12-15] MEDS: PANTOPRAZOLE SODIUM 40 MG TABLET.DR PO SCH (06:18)
[2019-12-15] MEDS: HEPARIN SOD (PORCINE) 5,000 UNIT/ML 1 ML VIAL SUBCUT SCH ×3 (06:26→22:21)
[2019-12-15 08:30] LABS: ALBUMIN 2.1 g/dL (3.5-5.0); ANION GAP 6 (5-19); ASPARTATE AMINO TRANSFERASE 55 U/L (17-59); BILIRUBIN,DIRECT 0.3 mg/dL (0.0-0.4); BILIRUBIN,TOTAL 0.3 mg/dL (0.2-1.3); BLOOD UREA NITROGEN 4 mg/dL (7-20); CARBON DIOXIDE 24 mmol/L (22-30); CHLORIDE 114 mmol/L (98-107); GLUCOSE 97 mg/dL (75-110); POTASSIUM 3.9 mmol/L (3.6-5.0); TOTAL PROTEIN 4.7 g/dL (6.3-8.2)
[2019-12-15 08:33] LABS: HEMATOCRIT 26.3 % (37.9-51.0); HEMOGLOBIN 8.6 g/dL (13.5-17.0); MEAN CORPUSCULAR HEMOGLOBIN 27.8 pg (27.0-33.4); MEAN CORPUSCULAR HGB CONC 32.7 g/dL (32.0-36.0); MEAN CORPUSCULAR VOLUME 85 fl (80-97); PLATELET COUNT 121 10^3/uL (150-450); RED BLOOD COUNT 3.09 10^6/uL (4.35-5.55); RED CELL DISTRIBUTION WIDTH 18.9 % (11.5-14.0); WHITE BLOOD COUNT 4.9 10^3/uL (4.0-10.5)
[2019-12-15 08:38] LABS: ALKALINE PHOSPHATASE 2764 U/L (38-126)
[2019-12-15 08:39] LABS: CALCIUM 5.9 mg/dL (8.4-10.2)
[2019-12-15] MEDS: INSULIN LISPRO 100 UNIT/ML 3 ML VIAL SUBCUT SCH ×4 (08:46→22:22)
[2019-12-15 09:10] LABS: ABSOLUTE LYMPHOCYTES# (MANUAL) 0.8 10^3/uL (0.5-4.7); ABSOLUTE MONOCYTES # (MANUAL) 0.3 10^3/uL (0.1-1.4); BAND NEUTROPHILS % (MANUAL) 1 % (3-5); BASOPHILS % (MANUAL) 0 % (0-2); EOSINOPHILS % (MANUAL) 4 % (0-6); LYMPHOCYTES % (MANUAL) 17 % (13-45); MONOCYTES % (MANUAL) 6 % (3-13); SEGMENTED NEUTROPHILS % (MAN) 72 % (42-78); TOTAL CELLS COUNTED 100
[2019-12-15 09:11] LABS: ANISOCYTOSIS 2+; OVALOCYTES 1+; PLATELET COMMENT ADEQUATE; TEAR DROP CELLS SLIGHT
[2019-12-15] MEDS: LEVETIRACETAM 500 MG TABLET PO SCH ×2 (09:31→22:26)
[2019-12-15] MEDS: METOPROLOL SUCCINATE 25 MG TAB.SR.24H PO SCH ×2 (09:31→22:26)
[2019-12-15] MEDS: CALCIUM CARBONATE 500 MG TABLET PO SCH ×3 (09:31→17:30)
[2019-12-15] MEDS ORDERED: CALCIUM GLUCONATE 6,666 MG in DEXTROSE 5%-WATER 500 ML IV ONE (11:00)
[2019-12-15 13:01] LABS: APPEARANCE,URINE CLEAR; BILIRUBIN,URINE NEGATIVE (NEGATIVE); COLOR,URINE YELLOW; GLUCOSE, URINE NEGATIVE (NEGATIVE); KETONES,URINE NEGATIVE (NEGATIVE); LEUKOCYTE ESTERASE,URINE NEGATIVE (NEGATIVE); NITRITE,URINE NEGATIVE (NEGATIVE); PROTEIN,URINE NEGATIVE (NEGATIVE); URINE SPECIFIC GRAVITY 1.008; UROBILINOGEN,URINE NEGATIVE mg/dL (<2.0)
--- NOTE | 2019-12-15 16:47 | Progress Note ---
Provider Note Provider Note: CARDIOLOGY PROGRESS NOTE by Dr. Mavis Mandel on 12/15/2019. SUBJECTIVE: Early the patient vomited once and now is feeling nauseous. There is no chest pain or discomfort. There is no shortness of breath. There is no recurrence of atrial tachycardia. There is no ventricular arrhythmia seen on the monitor. There is no TIA CVA symptoms. Still has pain secondary to bony mets especially in the hips. PHYSICAL EXAMINATION: The patient appears to be chronically ill. He also appears malnourished. Selected Entries 12/15/19 15:59 Temperature 97.8 F Temperature Oral Source Pulse Rate 90 Respiratory 16 Rate Blood Pressure 110/64 [Right Upper Arm] Blood Pressure 79 Mean [Right Upper Arm] Blood Pressure Supine Position [Right Upper Arm] O2 Sat by Pulse 100 Oximetry Oxygen Delivery Room Air Method ( includes room air) HEAD: Scar of prior right craniotomy present. Normocephalic. EYES: Pupils are equal round regular reactive to light and accommodation. There is conjunctival pallor. There is no scleral icterus. EARS: Tympanic membranes are intact. External auditory canals are clear. NOSE nose: There is no deviated nasal septum. There is no inflammation nasal mucous membrane. MOUTH: Mucous membranes of mouth are slightly dry. There is no bleeding from the gums. THROAT: There is no redness of the oropharynx. There is no exudates. SKIN: There is no petechia or ecchymosis. There is no skin lesions or skin rashes. NECK: Is supple. There is no JVD. Carotids are equal there is no bruit. There is no lymphadenopathy. There is no goiter. There is no accessory muscle respiration use. TRACHEA is central. LUNGS: Clear to auscultation percussion. Heart: S1-S2 is heard. There is no S3 gallop. There is no S4 gallop. There is mild mitral regurgitation murmur present. There is no aortic stenosis or aortic regurgitation murmur. There is no S3 gallop. There is no S4 gallop. S1 is of normal intensity. There is no pericardial rub. ABDOMEN: Soft nontender. There is no hepatosplenomegaly bowel sounds are well heard. EXTREMITIES: Femorals are well felt. There is no femoral bruits. Leg pulses well felt. There is no pedal edema. There is no DVT or cellulitis. There is no cyanosis or clubbing. PERFORMANCE CONSULTANT: The patient is conscious awake alert oriented to place person and time. And also situation. He has weak upper extremity and lower extremity. No focal deficits though. PSYCHIATRIC: Patient is in spite of his low blood pressures judgment site seem to be intact. He does not appear to be anxious or agitated. Labs- All tests 24 hr 12/14/19 12/15/19 12/15/19 19:20 06:38 06:38 WBC Cancelled RBC Cancelled Hgb Cancelled Hct Cancelled MCV Cancelled MCH Cancelled MCHC Cancelled RDW Cancelled Plt Count Cancelled Lymph % (Auto) Cancelled [place] % (Auto) Cancelled Eos % (Auto) Cancelled Baso % (Auto) Cancelled Absolute Neuts (auto) Cancelled Absolute Lymphs (auto) Cancelled Absolute Monos (auto) Cancelled Absolute Eos (auto) Cancelled Absolute Basos (auto) Cancelled Total Counted Seg Neutrophils % Cancelled Seg Neuts % (Manual) Band Neutrophils % Lymphocytes % (Manual) Monocytes % (Manual) Eosinophils % (Manual) Basophils % (Manual) Abs Neuts (Manual) Abs Lymphs (Manual) Abs Monocytes (Manual) Absolute Eos (Manual) Abs Basophils (Manual) Platelet Estimate Cancelled Platelet Comment Anisocytosis Tear Drop Cells Ovalocytes Sodium Cancelled Potassium Cancelled Chloride Cancelled Carbon Dioxide Cancelled Anion Gap Cancelled BUN Cancelled Creatinine Cancelled Est GFR ( Amer) Cancelled Est GFR (Non-Af Amer) Cancelled Est GFR (MDRD) Non-Af Cancelled Glucose Cancelled POC Glucose Calcium Cancelled Magnesium Cancelled Total Bilirubin Cancelled Direct Bilirubin Cancelled Neonat Total Bilirubin Cancelled Neonat Direct Bilirubin Cancelled Neonat Indirect Bili Cancelled AST Cancelled ALT Cancelled Alkaline Phosphatase Cancelled Total Protein Cancelled Albumin Cancelled EGFR Cancelled Urine Color Urine Appearance Urine pH Ur Specific [place] Urine Protein Urine Glucose (UA) Urine Ketones Urine Blood Urine Nitrite Urine Bilirubin Urine Urobilinogen Ur Leukocyte Esterase Urine WBC (Auto) Urine RBC (Auto) Urine Bacteria (Auto) Urine Mucus (Auto) Urine Ascorbic Acid Stl C. Difficile GDH Ag POSITIVE Stl C.difficile Tox A&B NEGATIVE Stl C.difficile Tox PCR POSITIVE Slides for Path Review Cancelled 12/15/19 12/15/19 12/15/19 07:52 07:52 07:55 WBC 4.9 RBC 3.09 L Hgb 8.6 L Hct 26.3 L MCV 85 MCH 27.8 MCHC 32.7 RDW 18.9 H Plt Count 121 L Lymph % (Auto) Not Reportable [place] % (Auto) Not Reportable Eos % (Auto) Not Reportable Baso % (Auto) Not Reportable Absolute Neuts (auto) Not Reportable Absolute Lymphs (auto) Not Reportable Absolute Monos (auto) Not Reportable Absolute Eos (auto) Not Reportable Absolute Basos (auto) Not Reportable Total Counted 100 Seg Neutrophils % Not Reportable Seg Neuts % (Manual) 72 Band Neutrophils % 1 L Lymphocytes % (Manual) 17 Monocytes % (Manual) 6 Eosinophils % (Manual) 4 Basophils % (Manual) 0 Abs Neuts (Manual) 3.6 Abs Lymphs (Manual) 0.8 Abs Monocytes (Manual) 0.3 Absolute Eos (Manual) 0.2 Abs Basophils (Manual) 0.0 Platelet Estimate Platelet Comment ADEQUATE Anisocytosis 2+ Tear Drop Cells SLIGHT Ovalocytes 1+ Sodium 144.2 Potassium 3.9 Chloride 114 H Carbon Dioxide 24 Anion Gap 6 BUN 4 L Creatinine 0.56 Est GFR ( Amer) > 60 Est GFR (Non-Af Amer) Est GFR (MDRD) Non-Af > 60 Glucose 97 POC Glucose 96 Calcium 5.9 L* Magnesium 1.9 Total Bilirubin 0.3 Direct Bilirubin 0.3 Neonat Total Bilirubin Not Reportable Neonat Direct Bilirubin 0.0 Neonat Indirect Bili 0.0 AST 55 ALT 14 Alkaline Phosphatase 2764 H Total Protein 4.7 L Albumin 2.1 L EGFR Urine Color Urine Appearance Urine pH Ur Specific [place] Urine Protein Urine Glucose (UA) Urine Ketones Urine Blood Urine Nitrite Urine Bilirubin Urine Urobilinogen Ur Leukocyte Esterase Urine WBC (Auto) Urine RBC (Auto) Urine Bacteria (Auto) Urine Mucus (Auto) Urine Ascorbic Acid Stl C. Difficile GDH Ag Stl C.difficile Tox A&B Stl C.difficile Tox PCR Slides for Path Review 12/15/19 12/15/19 12/15/19 11:34 12:20 15:58 WBC RBC Hgb Hct MCV MCH MCHC RDW Plt Count Lymph % (Auto) [place] % (Auto) Eos % (Auto) Baso % (Auto) Absolute Neuts (auto) Absolute Lymphs (auto) Absolute Monos (auto) Absolute Eos (auto) Absolute Basos (auto) Total Counted Seg Neutrophils % Seg Neuts % (Manual) Band Neutrophils % Lymphocytes % (Manual) Monocytes % (Manual) Eosinophils % (Manual) Basophils % (Manual) Abs Neuts (Manual) Abs Lymphs (Manual) Abs Monocytes (Manual) Absolute Eos (Manual) Abs Basophils (Manual) Platelet Estimate Platelet Comment Anisocytosis Tear Drop Cells Ovalocytes Sodium Potassium Chloride Carbon Dioxide Anion Gap BUN Creatinine Est GFR ( Amer) Est GFR (Non-Af Amer) Est GFR (MDRD) Non-Af Glucose POC Glucose 90 113 H Calcium Magnesium Total Bilirubin Direct Bilirubin Neonat Total Bilirubin Neonat Direct Bilirubin Neonat Indirect Bili AST ALT Alkaline Phosphatase Total Protein Albumin EGFR Urine Color YELLOW Urine Appearance CLEAR Urine pH 7.0 Ur Specific [place] 1.008 Urine Protein NEGATIVE Urine Glucose (UA) NEGATIVE Urine Ketones NEGATIVE Urine Blood SMALL H Urine Nitrite NEGATIVE Urine Bilirubin NEGATIVE Urine Urobilinogen NEGATIVE Ur Leukocyte Esterase NEGATIVE Urine WBC (Auto) 2 Urine RBC (Auto) 16 Urine Bacteria (Auto) TRACE Urine Mucus (Auto) RARE Urine Ascorbic Acid NEGATIVE Stl C. Difficile GDH Ag Stl C.difficile Tox A&B Stl C.difficile Tox PCR Slides for Path Review 12/15/19 21:09 WBC RBC Hgb Hct MCV MCH MCHC RDW Plt Count Lymph % (Auto) [place] % (Auto) Eos % (Auto) Baso % (Auto) Absolute Neuts (auto) Absolute Lymphs (auto) Absolute Monos (auto) Absolute Eos (auto) Absolute Basos (auto) Total Counted Seg Neutrophils % Seg Neuts % (Manual) Band Neutrophils % Lymphocytes % (Manual) Monocytes % (Manual) Eosinophils % (Manual) Basophils % (Manual) Abs Neuts (Manual) Abs Lymphs (Manual) Abs Monocytes (Manual) Absolute Eos (Manual) Abs Basophils (Manual) Platelet Estimate Platelet Comment Anisocytosis Tear Drop Cells Ovalocytes Sodium Potassium Chloride Carbon Dioxide Anion Gap BUN Creatinine Est GFR ( Amer) Est GFR (Non-Af Amer) Est GFR (MDRD) Non-Af Glucose POC Glucose 81 Calcium Magnesium Total Bilirubin Direct Bilirubin Neonat Total Bilirubin Neonat Direct Bilirubin Neonat Indirect Bili AST ALT Alkaline Phosphatase Total Protein Albumin EGFR Urine Color Urine Appearance Urine pH Ur Specific [place] Urine Protein Urine Glucose (UA) Urine Ketones Urine Blood Urine Nitrite Urine Bilirubin Urine Urobilinogen Ur Leukocyte Esterase Urine WBC (Auto) Urine RBC (Auto) Urine Bacteria (Auto) Urine Mucus (Auto) Urine Ascorbic Acid Stl C. Difficile GDH Ag Stl C.difficile Tox A&B Stl C.difficile Tox PCR Slides for Path Review Chest X-Ray 12/10/19 00:00 IMPRESSION: Clear lungs. IMPRESSION/RECOMMENDATION: 1. Acute pericarditis. This seems to have resolved. And the patient is converted to sinus rhythm. In view of the patient being off the amiodarone will increase the patient's colchicine to 0.6 mg p.o. every 12 hours. 2. Supraventricular tachycardia: This atrial tachycardia seems to have recurred but with a slow rate. Will give 1 dose of digoxin 0.25 mg IV push. Continue patient on metoprolol. 3. 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 4. Recalcitrant hypocalcemia.: Continue IV replacement of calcium. 5. Cardiomyopathy most likely secondary to hypocalcemia and supraventricular tachycardia. Quick look on the echo shows that the ejection fraction is probably around 35 to 40% moderately reduced. 6. Sepsis: Source not identified. Continue IV fluids. The patient is on p.o. vancomycin. His other antibiotics have been stopped. 7. Severe pain due to bony metastasis. Medications reviewed. Medications adjusted. Hence medical decision making is of moderate to high complexity. 40 minutes spent as patient more than 50% time spent in direct patient care. Discussed with Dr. Haney medical regimen and management plan. Also discussed with the patient's family. Will follow
[2019-12-15] MEDS: TAMSULOSIN HCL 0.4 MG CAP.SR.24H PO SCH (17:30)
--- NOTE | 2019-12-15 20:46 | PDOC PROGRESS REPORT ---
Subjective Progress Note for:: 12/15/19 Subjective:: Patient denied any chest pain or difficulty with breathing. His heart rate have been fairly stable in sinus rhythm on satellite project site monitor. No need for IV Cardizem infusion. His serum calcium remain low despite significant IV administration and oral intake. No reported fever or chills. No nausea or vomiting. No abdominal pain. Reason For Visit: HYPOTENSION Physical Exam Vital Signs: Temp Pulse Resp BP Pulse Ox 99.1 F 84 16 114/52 L 96 12/15/19 05:30 12/15/19 06:51 12/15/19 05:30 12/15/19 05:30 12/15/19 05:30 Intake & Output 12/14/19 12/15/19 12/16/19 06:59 06:59 06:59 Intake Total 2718 2400 Output Total 2260 600 Balance 458 1800 Weight 72.5 kg 72.5 kg Physical Exam: General appearance: PRESENT: no acute distress Head exam: PRESENT: atraumatic, normocephalic Eye exam: PRESENT: conjunctiva pink. ABSENT: pallor, scleral icterus Ear exam: PRESENT: normal external ear exam Mouth exam: PRESENT: moist Respiratory exam: PRESENT: clear to auscultation rebecca, decreased breath sounds - at lung bases Cardiovascular exam: PRESENT: RRR, +S1, +S2, GI/Abdominal exam: PRESENT: normal bowel sounds, soft. ABSENT: distended, guarding, mass, organomegaly, rebound, tenderness Extremities exam: ABSENT: pedal edema Musculoskeletal exam: PRESENT: deformity - related to multiple joints involvement with arthritis Neurological exam: PRESENT: alert, awake, oriented to person, oriented to place, oriented to time, oriented to situation, CN II-XII grossly intact. ABSENT: motor sensory deficit Psychiatric exam: PRESENT: appropriate affect, normal mood. ABSENT: homicidal ideation, suicidal ideation Skin exam: PRESENT: dry, warm Results Laboratory Results: 12/14/19 12/14/19 12/14/19 08:13 08:47 19:05 WBC RBC Hgb Hct MCV MCH MCHC RDW Plt Count Seg Neutrophils % Sodium 142.8 Potassium 3.5 L Chloride 114 H Carbon Dioxide 21 L Anion Gap 8 BUN 4 L Creatinine 0.55 Est GFR ( Amer) > 60 Est GFR (Non-Af Amer) Glucose 93 Calcium 5.8 L* Ionized Calcium Yola 0.90 L Magnesium 1.6 Total Bilirubin AST Alkaline Phosphatase Total Protein Albumin 2.4 L Stl C.difficile Tox PCR 12/14/19 12/15/19 12/15/19 19:20 06:38 06:38 WBC Cancelled RBC Cancelled Hgb Cancelled Hct Cancelled MCV Cancelled MCH Cancelled MCHC Cancelled RDW Cancelled Plt Count Cancelled Seg Neutrophils % Cancelled Sodium Cancelled Potassium Cancelled Chloride Cancelled Carbon Dioxide Cancelled Anion Gap Cancelled BUN Cancelled Creatinine Cancelled Est GFR ( Amer) Cancelled Est GFR (Non-Af Amer) Cancelled Glucose Cancelled Calcium Cancelled Ionized Calcium Yola Magnesium Cancelled Total Bilirubin Cancelled AST Cancelled Alkaline Phosphatase Cancelled Total Protein Cancelled Albumin Cancelled Stl C.difficile Tox PCR POSITIVE Impressions: Chest X-Ray 12/10/19 00:00 IMPRESSION: Clear lungs. Assessment & Plan - Diagnosis (1) Fever Qualifiers: Fever type: fever of unknown origin following delivery Qualified Code(s): O86.4 - Pyrexia of unknown origin following delivery Is this a current diagnosis for this admission?: Yes (2) Hypocalcemia Is this a current diagnosis for this admission?: Yes Plan: Patient will receive calcium gluconate infusion with 6,666 mg of elemental calcium. (3) Paroxysmal SVT (supraventricular tachycardia) Is this a current diagnosis for this admission?: Yes (4) Malignant neoplasm of prostate metastatic to bone Is this a current diagnosis for this admission?: Yes (5) Metastasis to brain Is this a current diagnosis for this admission?: Yes (6) Pain due to malignant neoplasm metastatic to bone Is this a current diagnosis for this admission?: Yes (7) Diabetes mellitus type 2 in nonobese Is this a current diagnosis for this admission?: Yes (8) HTN (hypertension) Qualifiers: Hypertension type: essential hypertension Qualified Code(s): I10 - Essential (primary) hypertension Is this a current diagnosis for this admission?: Yes (9) HLD (hyperlipidemia) Qualifiers: Hyperlipidemia type: pure hypertriglyceridemia Qualified Code(s): E78.1 - Pure hyperglyceridemia Is this a current diagnosis for this admission?: Yes (10) Clostridium difficile colitis Is this a current diagnosis for this admission?: Yes Plan: Started on oral Flagyl and Vancomycin therapy. D/C IV Cefepime and Vancomycin coverage. Obtain CBC with diff in AM. - Time Time Spent with patient: 25-34 minutes Level of Care: IMCU Medications reviewed and adjusted accordingly: Yes Anticipated discharge: Home with Homehealth Within: Other - Inpatient Certification Based on my medical assessment, after consideration of the patient's comorbidities, presenting symptoms, or acuity I expect that the services needed warrant INPATIENT care.: Yes I certify that my determination is in accordance with my understanding of Medicare's requirements for reasonable and necessary INPATIENT services [42 CFR 412.3e].: Yes Medical Necessity: Significant Comorbidiites Make Outpatient Treatment Too Risky, Need Close Monitoring Due to Risk of Patient Decompensation, Need For IV Fluids, Need For Continuous Telemetry Monitoring, Risk of Complication if Not Cared For in Hospital, Risk of Diagnosis Which Will Require Inpatient Eval/Care/Monitoring Post Hospital Care: D/C 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 Obtain CMP. Mag, CBC with diff in AM. Continue all other current medication management.
[2019-12-16] MEDS: RINGERS SOLUTION,LACTATED 1,000 ML IV PRN ×3 (00:24→17:51)
[2019-12-16] MEDS: VANCOMYCIN HCL INJ 500 MG VIAL PO SCH ×4 (00:26→17:50)
[2019-12-16] MEDS: HEPARIN SOD (PORCINE) 5,000 UNIT/ML 1 ML VIAL SUBCUT SCH ×3 (06:02→22:55)
[2019-12-16] MEDS: PANTOPRAZOLE SODIUM 40 MG TABLET.DR PO SCH (06:03)
[2019-12-16] MEDS: METRONIDAZOLE 500 MG TABLET PO SCH ×3 (06:03→22:41)
[2019-12-16] MEDS: COLCHICINE 0.6 MG TABLET PO SCH ×2 (06:03→17:50)
[2019-12-16 06:45] LABS: HEMOGLOBIN 8.5 g/dL (13.5-17.0); MEAN CORPUSCULAR HEMOGLOBIN 27.7 pg (27.0-33.4); MEAN CORPUSCULAR HGB CONC 32.7 g/dL (32.0-36.0); MEAN CORPUSCULAR VOLUME 85 fl (80-97); PLATELET COUNT 112 10^3/uL (150-450); RED BLOOD COUNT 3.06 10^6/uL (4.35-5.55); RED CELL DISTRIBUTION WIDTH 19.4 % (11.5-14.0); WHITE BLOOD COUNT 5.3 10^3/uL (4.0-10.5)
[2019-12-16 06:59] LABS: ALBUMIN 2.2 g/dL (3.5-5.0); ANION GAP 8 (5-19); ASPARTATE AMINO TRANSFERASE 104 U/L (17-59); BILIRUBIN,DIRECT 0.3 mg/dL (0.0-0.4); BILIRUBIN,TOTAL 0.3 mg/dL (0.2-1.3); BLOOD UREA NITROGEN 3 mg/dL (7-20); CARBON DIOXIDE 23 mmol/L (22-30); CHLORIDE 114 mmol/L (98-107); GLUCOSE 71 mg/dL (75-110); POTASSIUM 3.7 mmol/L (3.6-5.0); TOTAL PROTEIN 4.8 g/dL (6.3-8.2)
[2019-12-16 07:11] LABS: ALKALINE PHOSPHATASE 2800 U/L (38-126); CALCIUM 6.5 mg/dL (8.4-10.2)
[2019-12-16 07:58] LABS: ABSOLUTE LYMPHOCYTES# (MANUAL) 0.6 10^3/uL (0.5-4.7); ABSOLUTE MONOCYTES # (MANUAL) 0.2 10^3/uL (0.1-1.4); BAND NEUTROPHILS % (MANUAL) 4 % (3-5); BASOPHILS % (MANUAL) 2 % (0-2); EOSINOPHILS % (MANUAL) 2 % (0-6); LYMPHOCYTES % (MANUAL) 9 % (13-45); METAMYELOCYTES % (MANUAL) 1 % (0-1); MONOCYTES % (MANUAL) 3 % (3-13); NUCLEATED RED BLOOD CELLS 3 /100 WBC (0); SEGMENTED NEUTROPHILS % (MAN) 76 % (42-78); TOTAL CELLS COUNTED 100
[2019-12-16 07:59] LABS: ANISOCYTOSIS 2+; POLYCHROMASIA 1+; TOXIC GRANULATION SLIGHT
[2019-12-16 08:00] LABS: OVALOCYTES SLIGHT; PLATELET COMMENT DECREASED; POIKILOCYTOSIS SLIGHT; TEAR DROP CELLS SLIGHT
[2019-12-16] MEDS: INSULIN LISPRO 100 UNIT/ML 3 ML VIAL SUBCUT SCH ×4 (08:23→22:42)
[2019-12-16] MEDS: METOPROLOL SUCCINATE 25 MG TAB.SR.24H PO SCH ×2 (09:52→22:42)
[2019-12-16] MEDS: LEVETIRACETAM 500 MG TABLET PO SCH ×2 (09:52→22:41)
[2019-12-16] MEDS: CALCIUM CARBONATE 500 MG TABLET PO SCH ×3 (09:52→17:50)
[2019-12-16] MEDS: FENTANYL 25 MCG/HR PATCH.TD72 TOP SCH (09:53)
[2019-12-16] MEDS: TAMSULOSIN HCL 0.4 MG CAP.SR.24H PO SCH (17:50)
[2019-12-16] MEDS: ONDANSETRON HCL INJ/PF 4 MG/2 ML SDV IV PRN (17:59)
[2019-12-16] MEDS ORDERED: CALCIUM GLUCONATE 2,222 MG in DEXTROSE 5%-WATER 100 ML IV ONE (22:15)
--- NOTE | 2019-12-16 22:19 | PDOC PROGRESS REPORT ---
Subjective Progress Note for:: 12/16/19 Subjective:: Patient denied any chest pain or difficulty with breathing. No reported fever or chills. He reported ongoing diarrhea at the time of my visit tonight. No nausea or vomiting. No abdominal pain. Reason For Visit: HYPOTENSION Physical Exam Vital Signs: Temp Pulse Resp BP Pulse Ox 98.7 F 87 19 106/54 L 96 12/16/19 21:22 12/16/19 21:22 12/16/19 21:22 12/16/19 21:22 12/16/19 21:22 Intake & Output 12/15/19 12/16/19 12/17/19 06:59 06:59 06:59 Intake Total 2400 2861.66 2240 Output Total 2150 1700 1900 Balance 250 1161.66 340 Weight 68 kg 20.9 kg Physical Exam: General appearance: PRESENT: no acute distress Head exam: PRESENT: atraumatic, normocephalic Eye exam: PRESENT: conjunctiva pink. ABSENT: pallor, scleral icterus Ear exam: PRESENT: normal external ear exam Mouth exam: PRESENT: moist Respiratory exam: PRESENT: clear to auscultation rebecca, decreased breath sounds - at lung bases Cardiovascular exam: PRESENT: RRR, +S1, +S2, GI/Abdominal exam: PRESENT: normal bowel sounds, soft. ABSENT: distended, guarding, mass, organomegaly, rebound, tenderness : Indwelling Amanda catheter. Extremities exam: ABSENT: pedal edema Musculoskeletal exam: PRESENT: deformity - related to multiple joints involve ment with arthritis Neurological exam: PRESENT: alert, awake, oriented to person, oriented to place, oriented to time, oriented to situation, CN II-XII grossly intact. ABSENT: motor sensory deficit Psychiatric exam: PRESENT: appropriate affect, normal mood. ABSENT: homicidal ideation, suicidal ideation Skin exam: PRESENT: dry, warm Results Laboratory Results: 12/16/19 06:27 12/16/19 06:27 12/16/19 12/16/19 06:27 06:27 WBC 5.3 RBC 3.06 L Hgb 8.5 L Hct 26.0 L MCV 85 MCH 27.7 MCHC 32.7 RDW 19.4 H Plt Count 112 L Seg Neutrophils % Not Reportable Sodium 145.1 H Potassium 3.7 Chloride 114 H Carbon Dioxide 23 Anion Gap 8 BUN 3 L Creatinine 0.59 Est GFR ( Amer) > 60 Glucose 71 L Calcium 6.5 L* Magnesium 1.6 Total Bilirubin 0.3 AST 104 H Alkaline Phosphatase 2800 H Total Protein 4.8 L Albumin 2.2 L Impressions: Chest X-Ray 12/10/19 00:00 IMPRESSION: Clear lungs. 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 Is this a current diagnosis for this admission?: Yes (5) Metastasis to brain Is this a current diagnosis for this admission?: Yes (6) Pain due to malignant neoplasm metastatic to bone Is this a current diagnosis for this admission?: Yes (7) Diabetes mellitus type 2 in nonobese Is this a current diagnosis for this admission?: Yes (8) HTN (hypertension) Qualifiers: Hypertension type: essential hypertension Qualified Code(s): I10 - Essential (primary) hypertension Is this a current diagnosis for this admission?: Yes (9) HLD (hyperlipidemia) Qualifiers: Hyperlipidemia type: pure hypertriglyceridemia Qualified Code(s): E78.1 - Pure hyperglyceridemia Is this a current diagnosis for this admission?: Yes (10) Clostridium difficile colitis Is this a current diagnosis for this admission?: Yes - Time Time Spent with patient: 25-34 minutes Level of Care: IMCU Medications reviewed and adjusted accordingly: Yes Anticipated discharge: Home with Homehealth Within: Other - Inpatient Certification Based on my medical assessment, after consideration of the patient's comorbidities, presenting symptoms, or acuity I expect that the services needed warrant INPATIENT care.: Yes I certify that my determination is in accordance with my understanding of Medicare's requirements for reasonable and necessary INPATIENT services [42 CFR 412.3e].: Yes Medical Necessity: Significant Comorbidiites Make Outpatient Treatment Too Risky, Need Close Monitoring Due to Risk of Patient Decompensation, Need For IV Fluids, Need For Continuous Telemetry Monitoring, Risk of Complication if Not Cared For in Hospital, Risk of Diagnosis Which Will Require Inpatient Eval/Care/Monitoring Post Hospital Care: D/C Clinical Microbiologist Documentation - Plan Summary Plan Summary: Continue oral Vancomycin and Flagyl coverage. Obtain CBC with diff, CMP, Mag in AM. Corrected calcium with hypoalbuminemia was 8.26 mg/dL. Infuse Calcium 2,222 mg tonight. Maintain optimal serum calcium level as indicated by improvement in his heart rate. He will remain on Metoprolol Succinate 25 mg po q 12 hours therapy.
[2019-12-16] MEDS: CALCIUM GLUCONATE 1 GM/NS 50 ML RTU IV SCH (23:36)
[2019-12-17] MEDS: CALCIUM GLUCONATE 1 GM/NS 50 ML RTU IV SCH (00:54)
[2019-12-17] MEDS: VANCOMYCIN HCL INJ 500 MG VIAL PO SCH ×4 (02:27→18:08)
[2019-12-17] MEDS: RINGERS SOLUTION,LACTATED 1,000 ML IV PRN (04:45)
[2019-12-17] MEDS: COLCHICINE 0.6 MG TABLET PO SCH ×2 (05:12→18:07)
[2019-12-17] MEDS: METRONIDAZOLE 500 MG TABLET PO SCH ×3 (05:12→21:24)
[2019-12-17] MEDS: PANTOPRAZOLE SODIUM 40 MG TABLET.DR PO SCH (05:12)
[2019-12-17] MEDS: HEPARIN SOD (PORCINE) 5,000 UNIT/ML 1 ML VIAL SUBCUT SCH ×3 (05:22→21:25)
[2019-12-17 05:54] LABS: HEMOGLOBIN 8.4 g/dL (13.5-17.0); MEAN CORPUSCULAR HEMOGLOBIN 28.3 pg (27.0-33.4); MEAN CORPUSCULAR HGB CONC 33.8 g/dL (32.0-36.0); MEAN CORPUSCULAR VOLUME 84 fl (80-97); PLATELET COUNT 113 10^3/uL (150-450); RED BLOOD COUNT 2.97 10^6/uL (4.35-5.55); RED CELL DISTRIBUTION WIDTH 18.5 % (11.5-14.0); WHITE BLOOD COUNT 5.4 10^3/uL (4.0-10.5)
[2019-12-17 06:19] LABS: ALBUMIN 2.2 g/dL (3.5-5.0); ANION GAP 8 (5-19); ASPARTATE AMINO TRANSFERASE 93 U/L (17-59); BILIRUBIN,DIRECT 0.3 mg/dL (0.0-0.4); BILIRUBIN,TOTAL 0.3 mg/dL (0.2-1.3); BLOOD UREA NITROGEN 2 mg/dL (7-20); CARBON DIOXIDE 25 mmol/L (22-30); CHLORIDE 114 mmol/L (98-107); POTASSIUM 3.3 mmol/L (3.6-5.0); TOTAL PROTEIN 4.8 g/dL (6.3-8.2)
[2019-12-17 06:28] LABS: ALKALINE PHOSPHATASE 2949 U/L (38-126); CALCIUM 6.3 mg/dL (8.4-10.2); GLUCOSE 69 mg/dL (75-110)
[2019-12-17] MEDS ORDERED: VANCOMYCIN HCL INJ 500 MG VIAL ONE (06:45)
[2019-12-17 07:03] LABS: ABSOLUTE LYMPHOCYTES# (MANUAL) 0.8 10^3/uL (0.5-4.7); ABSOLUTE MONOCYTES # (MANUAL) 0.9 10^3/uL (0.1-1.4); BAND NEUTROPHILS % (MANUAL) 2 % (3-5); BASOPHILS % (MANUAL) 0 % (0-2); EOSINOPHILS % (MANUAL) 4 % (0-6); LYMPHOCYTES % (MANUAL) 14 % (13-45); MONOCYTES % (MANUAL) 16 % (3-13); NUCLEATED RED BLOOD CELLS 1 /100 WBC (0); SEGMENTED NEUTROPHILS % (MAN) 64 % (42-78); TOTAL CELLS COUNTED 100
[2019-12-17 07:05] LABS: ANISOCYTOSIS 1+; POLYCHROMASIA SLIGHT
[2019-12-17 07:06] LABS: PLATELET COMMENT DECREASED; SCHISTOCYTES SLIGHT; TEAR DROP CELLS SLIGHT
[2019-12-17] MEDS: INSULIN LISPRO 100 UNIT/ML 3 ML VIAL SUBCUT SCH ×4 (08:41→21:25)
[2019-12-17] MEDS: METOPROLOL SUCCINATE 25 MG TAB.SR.24H PO SCH ×2 (10:39→21:24)
[2019-12-17] MEDS: CALCIUM CARBONATE 500 MG TABLET PO SCH ×3 (10:39→18:07)
[2019-12-17] MEDS: LEVETIRACETAM 500 MG TABLET PO SCH ×2 (10:39→21:24)
[2019-12-17] MEDS: TAMSULOSIN HCL 0.4 MG CAP.SR.24H PO SCH (18:07)
[2019-12-17] MEDS: ONDANSETRON HCL INJ/PF 4 MG/2 ML SDV IV PRN (18:17)
[2019-12-17] MEDS: ACETAMINOPHEN SOLN 325 MG/10.15 ML UDCUP PO PRN (18:17)
--- NOTE | 2019-12-17 18:29 | Progress Note ---
Provider Note Provider Note: CARDIOLOGY PROGRESS NOTE by Dr. Mavis Mandel on 12/17/2019. OBJECTIVE: The patient denies any chest pain discomfort. He appears to be slightly withdrawn today. There is no recurrence of his atrial tachycardia/SVT. There is no PND orthopnea. There is no complaints of shortness of breath. There is no ventricular arrhythmia seen on the monitor. There is no TIA CVA symptoms. He still is in pain due to his bony mets. PHYSICAL EXAMINATION: The patient appears to be chronically ill and malnourished. Selected Entries 12/17/19 16:00 Temperature 98.6 F Temperature Oral Source Pulse Rate 86 Respiratory 17 Rate Blood Pressure 125/75 [Right Upper Arm] Blood Pressure 91 Mean [Right Upper Arm] Blood Pressure Sitting Position [Right Upper Arm] O2 Sat by Pulse 98 Oximetry Oxygen Delivery Room Air Method ( includes room air) HEAD: Scar of prior right craniotomy present. Normocephalic. EYES: Pupils are equal round regular reactive to light and accommodation. There is conjunctival pallor. There is no scleral icterus. EARS: Tympanic membranes are intact. External auditory canals are clear. NOSE nose: There is no deviated nasal septum. There is no inflammation nasal mucous membrane. MOUTH: Mucous membranes of mouth are slightly dry. There is no bleeding from the gums. THROAT: There is no redness of the oropharynx. There is no exudates. SKIN: There is no petechia or ecchymosis. There is no skin lesions or skin rashes. NECK: Is supple. There is no JVD. Carotids are equal there is no bruit. There is no lymphadenopathy. There is no goiter. There is no accessory muscle respiration use. TRACHEA is central. LUNGS: Clear to auscultation percussion. Heart: S1-S2 is heard. There is no S3 gallop. There is no S4 gallop. There is mild mitral regurgitation murmur present. There is no aortic stenosis or aortic regurgitation murmur. There is no S3 gallop. There is no S4 gallop. S1 is of normal intensity. There is no pericardial rub. ABDOMEN: Soft nontender. There is no hepatosplenomegaly bowel sounds are well heard. EXTREMITIES: Femorals are well felt. There is no femoral bruits. Leg pulses well felt. There is no pedal edema. There is no DVT or cellulitis. There is no cyanosis or clubbing. STONE CLEANER: The patient is conscious awake alert oriented to place person and time. And also situation. He has weak upper extremity and lower extremity. No focal deficits though. PSYCHIATRIC: Patient is in spite of his low blood pressures judgment site seem to be intact. He does not appear to be anxious or agitated. Labs- All tests 24 hr 12/16/19 12/17/19 12/17/19 21:20 05:15 05:15 WBC 5.4 RBC 2.97 L Hgb 8.4 L Hct 25.0 L MCV 84 MCH 28.3 MCHC 33.8 RDW 18.5 H Plt Count 113 L Lymph % (Auto) Not Reportable Crosby % (Auto) Not Reportable Eos % (Auto) Not Reportable Baso % (Auto) Not Reportable Absolute Neuts (auto) Not Reportable Absolute Lymphs (auto) Not Reportable Absolute Monos (auto) Not Reportable Absolute Eos (auto) Not Reportable Absolute Basos (auto) Not Reportable Total Counted 100 Seg Neutrophils % Not Reportable Seg Neuts % (Manual) 64 Band Neutrophils % 2 L Lymphocytes % (Manual) 14 Monocytes % (Manual) 16 H Eosinophils % (Manual) 4 Basophils % (Manual) 0 Abs Neuts (Manual) 3.6 Abs Lymphs (Manual) 0.8 Abs Monocytes (Manual) 0.9 Absolute Eos (Manual) 0.2 Abs Basophils (Manual) 0.0 Nucleated RBCs 1 Platelet Comment DECREASED Polychromasia SLIGHT Anisocytosis 1+ Tear Drop Cells SLIGHT Schistocytes SLIGHT Sodium 147.4 H Potassium 3.3 L Chloride 114 H Carbon Dioxide 25 Anion Gap 8 BUN 2 L Creatinine 0.56 Est GFR ( Amer) > 60 Est GFR (MDRD) Non-Af > 60 Glucose 69 L POC Glucose 71 Calcium 6.3 L* Magnesium 1.4 L Total Bilirubin 0.3 Direct Bilirubin 0.3 Neonat Total Bilirubin Not Reportable Neonat Direct Bilirubin 0.0 Neonat Indirect Bili 0.0 AST 93 H ALT 25 Alkaline Phosphatase 2949 H Total Protein 4.8 L Albumin 2.2 L 12/17/19 12/17/19 12/17/19 08:27 10:46 16:36 WBC RBC Hgb Hct MCV MCH MCHC RDW Plt Count Lymph % (Auto) Crosby % (Auto) Eos % (Auto) Baso % (Auto) Absolute Neuts (auto) Absolute Lymphs (auto) Absolute Monos (auto) Absolute Eos (auto) Absolute Basos (auto) Total Counted Seg Neutrophils % Seg Neuts % (Manual) Band Neutrophils % Lymphocytes % (Manual) Monocytes % (Manual) Eosinophils % (Manual) Basophils % (Manual) Abs Neuts (Manual) Abs Lymphs (Manual) Abs Monocytes (Manual) Absolute Eos (Manual) Abs Basophils (Manual) Nucleated RBCs Platelet Comment Polychromasia Anisocytosis Tear Drop Cells Schistocytes Sodium Potassium Chloride Carbon Dioxide Anion Gap BUN Creatinine Est GFR ( Amer) Est GFR (MDRD) Non-Af Glucose POC Glucose 87 86 71 Calcium Magnesium Total Bilirubin Direct Bilirubin Neonat Total Bilirubin Neonat Direct Bilirubin Neonat Indirect Bili AST ALT Alkaline Phosphatase Total Protein Albumin Chest X-Ray 12/10/19 00:00 IMPRESSION: Clear lungs. IMPRESSION/RECOMMENDATION: 1. Acute pericarditis. This seems to have resolved. And the patient is converted to sinus rhythm. In view of the patient being off the amiodarone will increase the patient's colchicine to 0.6 mg p.o. every 12 hours. 2. Supraventricular tachycardia: The major cause of this patient's atrial tachycardia is the patient's hypercalcemia. We will continue the patient's metoprolol at current dosage.. 3. 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 4. Recalcitrant hypocalcemia.: Continue IV replacement of calcium. 5. Cardiomyopathy most likely secondary to hypocalcemia and supraventricular tachycardia. Quick look on the echo shows that the ejection fraction is probably around 35 to 40% moderately reduced. 6. Sepsis: Source not identified. Continue IV fluids. The patient is on p.o. vancomycin. His other antibiotics have been stopped. 7. Severe pain due to bony metastasis. Medications reviewed. Medical regimen and management plan discussed with attending physician. Medical decision making is of moderate complexity. 40 minutes spent as patient more than 50% time spent in direct patient care. Will follow. Hopefully anticipate patient's discharge soon.
--- NOTE | 2019-12-17 18:52 | PDOC PROGRESS REPORT ---
Subjective Progress Note for:: 12/17/19 Subjective:: Patient denied any diarrhea so far today. He did report worsening nausea limiting his oral intake. No vomiting or abdominal pain. He denied any chest pain or difficulty with breathing. No reported fever or chills. Reason For Visit: HYPOTENSION Physical Exam Vital Signs: Temp Pulse Resp BP Pulse Ox 98.6 F 86 17 125/75 98 12/17/19 16:00 12/17/19 16:00 12/17/19 16:00 12/17/19 16:00 12/17/19 16:00 Intake & Output 12/16/19 12/17/19 12/18/19 06:59 06:59 06:59 Intake Total 2861.66 3240 1000 Output Total 1700 3350 Balance 1161.66 -110 1000 Weight 20.9 kg 66.7 kg Physical Exam: General appearance: PRESENT: no acute distress Head exam: PRESENT: atraumatic, normocephalic Eye exam: PRESENT: conjunctiva pink. ABSENT: pallor, scleral icterus Ear exam: PRESENT: normal external ear exam Mouth exam: PRESENT: moist Respiratory exam: PRESENT: clear to auscultation rebecca, decreased breath sounds - at lung bases Cardiovascular exam: PRESENT: RRR, +S1, +S2, GI/Abdominal exam: PRESENT: normal bowel sounds, soft. ABSENT: distended, guarding, mass, organomegaly, rebound, tenderness : Indwelling Amanda catheter. Extremities exam: ABSENT: pedal edema Musculoskeletal exam: PRESENT: deformity - related to multiple joints involvement with arthritis Neurological exam: PRESENT: alert, awake, oriented to person, oriented to place, oriented to time, oriented to situation, CN II-XII grossly intact. ABSENT: motor sensory deficit Psychiatric exam: PRESENT: appropriate affect, normal mood. ABSENT: homicidal ideation, suicidal ideation Skin exam: PRESENT: dry, warm Results Laboratory Results: 12/17/19 05:15 12/17/19 05:15 12/17/19 12/17/19 05:15 05:15 WBC 5.4 RBC 2.97 L Hgb 8.4 L Hct 25.0 L MCV 84 MCH 28.3 MCHC 33.8 RDW 18.5 H Plt Count 113 L Seg Neutrophils % Not Reportable Sodium 147.4 H Potassium 3.3 L Chloride 114 H Carbon Dioxide 25 Anion Gap 8 BUN 2 L Creatinine 0.56 Est GFR ( Amer) > 60 Glucose 69 L Calcium 6.3 L* Magnesium 1.4 L Total Bilirubin 0.3 AST 93 H Alkaline Phosphatase 2949 H Total Protein 4.8 L Albumin 2.2 L Impressions: Chest X-Ray 12/10/19 00:00 IMPRESSION: Clear lungs. 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 Is this a current diagnosis for this admission?: Yes (5) Metastasis to brain Is this a current diagnosis for this admission?: Yes (6) Pain due to malignant neoplasm metastatic to bone Is this a current diagnosis for this admission?: Yes (7) Diabetes mellitus type 2 in nonobese Is this a current diagnosis for this admission?: Yes (8) HTN (hypertension) Qualifiers: Hypertension type: essential hypertension Qualified Code(s): I10 - Essential (primary) hypertension Is this a current diagnosis for this admission?: Yes (9) HLD (hyperlipidemia) Qualifiers: Hyperlipidemia type: pure hypertriglyceridemia Qualified Code(s): E78.1 - Pure hyperglyceridemia Is this a current diagnosis for this admission?: Yes (10) Clostridium difficile colitis Is this a current diagnosis for this admission?: Yes (11) Hypokalemia due to loss of potassium Is this a current diagnosis for this admission?: Yes Plan: Patient will receive potassium rider total 60 mEq dose. (12) Hypomagnesemia Is this a current diagnosis for this admission?: Yes Plan: Patient will receive total 2gm of Magnesium sulfate rider infusion. - Time Time Spent with patient: 25-34 minutes Level of Care: IMCU Medications reviewed and adjusted accordingly: Yes Anticipated discharge: Home with Homehealth Within: Other - Inpatient Certification Based on my medical assessment, after consideration of the patient's comorbidities, presenting symptoms, or acuity I expect that the services needed warrant INPATIENT care.: Yes I certify that my determination is in accordance with my understanding of Medicare's requirements for reasonable and necessary INPATIENT services [42 CFR 412.3e].: Yes Medical Necessity: Significant Comorbidiites Make Outpatient Treatment Too Risky, Need Close Monitoring Due to Risk of Patient Decompensation, Need For IV Fluids, Need For Continuous Telemetry Monitoring, Risk of Complication if Not Cared For in Hospital, Risk of Diagnosis Which Will Require Inpatient Eval/Care/Monitoring Post Hospital Care: D/C [employer] Documentation - Plan Summary Plan Summary: D/C oral Flagyl and Vancomycin. Start on Dificid 200 mg p.o bid. Start on IV Potassium and Magnesium rider for hypokalemia and hypomagnesemia. Increase Calcium Carbonate to 500 mg po pchs. Still continue to envisage discharge home tomorrow if possible. Obtain CMP with mag in am.
[2019-12-17] MEDS: MAGNESIUM SULFATE/D5W 1 GM/100 ML RTUPB IV SCH ×2 (20:14→21:24)
[2019-12-17] MEDS: POTASSI CL 20 MEQ/50 ML RIDER 20 MEQ/50 ML RTUPB IV SCH ×2 (20:14→22:24)
[2019-12-17] MEDS: CALCIUM CARBONATE 500 MG TAB.CHEW PO SCH (21:24)
[2019-12-17] MEDS: FIDAXOMICIN 200 MG TABLET PO SCH (22:25)
[2019-12-18] MEDS: VANCOMYCIN HCL INJ 500 MG VIAL PO SCH ×3 (00:24→13:18)
[2019-12-18] MEDS: POTASSI CL 20 MEQ/50 ML RIDER 20 MEQ/50 ML RTUPB IV SCH (00:24)
[2019-12-18] MEDS: METRONIDAZOLE 500 MG TABLET PO SCH ×2 (05:43→13:18)
[2019-12-18] MEDS: COLCHICINE 0.6 MG TABLET PO SCH ×2 (05:43→17:55)
[2019-12-18] MEDS: PANTOPRAZOLE SODIUM 40 MG TABLET.DR PO SCH (05:43)
[2019-12-18] MEDS: HEPARIN SOD (PORCINE) 5,000 UNIT/ML 1 ML VIAL SUBCUT SCH ×2 (05:44→13:19)
[2019-12-18] MEDS: INSULIN LISPRO 100 UNIT/ML 3 ML VIAL SUBCUT SCH ×3 (09:04→16:15)
[2019-12-18] MEDS: FIDAXOMICIN 200 MG TABLET PO SCH (09:26)
[2019-12-18] MEDS: CALCIUM CARBONATE 500 MG TABLET PO SCH ×3 (09:26→17:56)
[2019-12-18] MEDS: LEVETIRACETAM 500 MG TABLET PO SCH (09:26)
[2019-12-18] MEDS: METOPROLOL SUCCINATE 25 MG TAB.SR.24H PO SCH (09:27)
[2019-12-18] MEDS: CALCIUM CARBONATE 500 MG TAB.CHEW PO SCH ×3 (09:27→17:55)
[2019-12-18] MEDS: ONDANSETRON HCL INJ/PF 4 MG/2 ML SDV IV PRN ×2 (13:27→22:23)
--- NOTE | 2019-12-18 16:43 | PDOC PROGRESS REPORT ---
Subjective Progress Note for:: 12/18/19 Subjective:: Patient and nursing staff reported persistent diarrhea so far today. he reported nausea and poor po intake. No vomiting or abdominal pain. He denied any chest pain or difficulty with breathing. No reported fever or chills. Reason For Visit: HYPOTENSION Physical Exam Vital Signs: Temp Pulse Resp BP Pulse Ox 98.1 F 73 16 111/59 L 99 12/18/19 12:12 12/18/19 12:12 12/18/19 12:12 12/18/19 12:12 12/18/19 12:12 Intake & Output 12/17/19 12/18/19 12/19/19 06:59 06:59 06:59 Intake Total 3240 1981 318 Output Total 3350 1465 250 Balance -110 516 68 Weight 66.7 kg 64.5 kg 64.5 kg Physical Exam: General appearance: PRESENT: no acute distress Head exam: PRESENT: atraumatic, normocephalic Eye exam: PRESENT: conjunctiva pink. ABSENT: pallor, scleral icterus Ear exam: PRESENT: normal external ear exam Mouth exam: PRESENT: moist Respiratory exam: PRESENT: clear to auscultation rebecca, decreased breath sounds - at lung bases Cardiovascular exam: PRESENT: RRR, +S1, +S2, GI/Abdominal exam: PRESENT: normal bowel sounds, soft. ABSENT: distended, guarding, mass, organomegaly, rebound, tenderness : Indwelling Amanda catheter. Extremities exam: ABSENT: pedal edema Musculoskeletal exam: PRESENT: deformity - related to multiple joints involvement with arthritis Neurological exam: PRESENT: alert, awake, oriented to person, oriented to place, oriented to time, oriented to situation, CN II-XII grossly intact. ABSENT: motor sensory deficit Psychiatric exam: PRESENT: appropriate affect, normal mood. ABSENT: homicidal ideation, suicidal ideation Skin exam: PRESENT: dry, warm Results Laboratory Results: 12/17/19 05:15 12/17/19 05:15 Impressions: Chest X-Ray 12/10/19 00:00 IMPRESSION: Clear lungs. 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 Is this a current diagnosis for this admission?: Yes (5) Metastasis to brain Is this a current diagnosis for this admission?: Yes (6) Pain due to malignant neoplasm metastatic to bone Is this a current diagnosis for this admission?: Yes (7) Diabetes mellitus type 2 in nonobese Is this a current diagnosis for this admission?: Yes (8) HTN (hypertension) Qualifiers: Hypertension type: essential hypertension Qualified Code(s): I10 - Essential (primary) hypertension Is this a current diagnosis for this admission?: Yes (9) HLD (hyperlipidemia) Qualifiers: Hyperlipidemia type: pure hypertriglyceridemia Qualified Code(s): E78.1 - Pure hyperglyceridemia Is this a current diagnosis for this admission?: Yes (10) Clostridium difficile colitis Is this a current diagnosis for this admission?: Yes (11) Hypokalemia due to loss of potassium Is this a current diagnosis for this admission?: Yes (12) Hypomagnesemia Is this a current diagnosis for this admission?: Yes - Time Time Spent with patient: 25-34 minutes Level of Care: IMCU Medications reviewed and adjusted accordingly: Yes Anticipated discharge: Home with Homehealth Within: Other - Inpatient Certification Based on my medical assessment, after consideration of the patient's comorbidities, presenting symptoms, or acuity I expect that the services needed warrant INPATIENT care.: Yes I certify that my determination is in accordance with my understanding of Medicare's requirements for reasonable and necessary INPATIENT services [42 CFR 412.3e].: Yes Medical Necessity: Significant Comorbidiites Make Outpatient Treatment Too Risky, Need Close Monitoring Due to Risk of Patient Decompensation, Need For IV Fluids, Need For Continuous Telemetry Monitoring, Risk of Complication if Not Cared For in Hospital, Risk of Diagnosis Which Will Require Inpatient Eval/Care/Monitoring 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 Start on Viberzi 75 mg p.o bid. Continue all other current medication management.
[2019-12-18] MEDS: TAMSULOSIN HCL 0.4 MG CAP.SR.24H PO SCH (17:56)
[2019-12-18] MEDS: RIFAXIMIN 200 MG TABLET PO SCH (17:56)
[2019-12-18] MEDS: RINGERS SOLUTION,LACTATED 1,000 ML IV PRN (22:31)
[2019-12-19] MEDS: LEVETIRACETAM 500 MG TABLET PO SCH ×3 (00:03→22:23)
[2019-12-19] MEDS: FIDAXOMICIN 200 MG TABLET PO SCH ×3 (00:03→22:23)
[2019-12-19] MEDS: METOPROLOL SUCCINATE 25 MG TAB.SR.24H PO SCH ×3 (00:04→22:23)
[2019-12-19] MEDS: HEPARIN SOD (PORCINE) 5,000 UNIT/ML 1 ML VIAL SUBCUT SCH ×4 (00:07→22:18)
[2019-12-19] MEDS: INSULIN LISPRO 100 UNIT/ML 3 ML VIAL SUBCUT SCH ×5 (00:07→22:17)
[2019-12-19] MEDS: CALCIUM CARBONATE 500 MG TAB.CHEW PO SCH ×5 (00:10→22:23)
[2019-12-19] MEDS: PANTOPRAZOLE SODIUM 40 MG TABLET.DR PO SCH (05:11)
[2019-12-19] MEDS: COLCHICINE 0.6 MG TABLET PO SCH ×2 (05:11→17:23)
[2019-12-19] MEDS: RINGERS SOLUTION,LACTATED 1,000 ML IV PRN ×3 (06:45→22:23)
[2019-12-19] MEDS: DEXTROSE 50%-WATER SYRINGE 12.5 GM/25 ML DOSE IV PRN (07:30)
[2019-12-19] MEDS: ONDANSETRON HCL INJ/PF 4 MG/2 ML SDV IV PRN (09:19)
[2019-12-19] MEDS: FENTANYL 25 MCG/HR PATCH.TD72 TOP SCH (09:21)
[2019-12-19] MEDS: CALCIUM CARBONATE 500 MG TABLET PO SCH ×3 (09:57→17:23)
[2019-12-19] MEDS: RIFAXIMIN 200 MG TABLET PO SCH ×3 (09:57→17:22)
[2019-12-19] MEDS: TAMSULOSIN HCL 0.4 MG CAP.SR.24H PO SCH (17:23)
[2019-12-19] MEDS: MEGESTROL ACETATE 20 MG TABLET PO SCH (17:23)
--- NOTE | 2019-12-19 19:10 | PDOC PROGRESS REPORT ---
Subjective Progress Note for:: 12/19/19 Subjective:: Patient seen by the bedside, the biggest challenge at the moment is complete loss of appetite, he has extremely diminished intake, to be started on Megace, appetite stimulant Reason For Visit: HYPOTENSION Physical Exam Vital Signs: Temp Pulse Resp BP Pulse Ox 98.6 F 78 16 111/60 100 12/19/19 15:18 12/19/19 15:18 12/19/19 15:18 12/19/19 15:18 12/19/19 15:18 Intake & Output 12/18/19 12/19/19 12/20/19 06:59 06:59 06:59 Intake Total 1981 1555 1200 Output Total 1465 1125 525 Balance 516 430 675 Weight 64.5 kg 64.4 kg General appearance: PRESENT: no acute distress Eye exam: PRESENT: PERRLA Respiratory exam: PRESENT: clear to auscultation rebecca Cardiovascular exam: PRESENT: +S1, +S2 Neurological exam: PRESENT: alert Results Laboratory Results: 12/17/19 05:15 12/17/19 05:15 Impressions: Chest X-Ray 12/10/19 00:00 IMPRESSION: Clear lungs. Assessment & Plan - Diagnosis (1) Sepsis Qualifiers: Sepsis type: sepsis due to unspecified organism Sepsis acute organ dysfunction status: without acute organ dysfunction Qualified Code(s): A41.9 - Sepsis, unspecified organism Is this a current diagnosis for this admission?: Yes (2) Hypocalcemia Is this a current diagnosis for this admission?: Yes (3) Anorexia Is this a current diagnosis for this admission?: Yes Plan: Start Megace, 40 mg p.o. daily (4) Urinary retention Is this a current diagnosis for this admission?: Yes (5) Malignant neoplasm of prostate Is this a current diagnosis for this admission?: Yes - Time Time Spent with patient: 15-24 minutes
--- NOTE | 2019-12-19 22:18 | Progress Note ---
Provider Note Provider Note: CARDIOLOGY PROGRESS NOTE by Dr. Mavis Starkey on 12/19/2019. SUBJECTIVE: The patient has no further nausea. He is tolerating a diet. There is no diarrhea. There is no chest pain or discomfort. There is no recurrence of his SVT. He still has pain due to bony mets. There is no shortness of breath PND or orthopnea. There is no leg edema. There is no TIA CVA symptoms. PHYSICAL EXAMINATION: The patient appears to be chronically ill and malnourished Selected Entries 12/19/19 11:19 Temperature 98.4 F Temperature Oral Source Pulse Rate 78 Respiratory 18 Rate Blood Pressure 109/64 Blood Pressure 79 Mean BP Location Right Arm BP Position Supine O2 Sat by Pulse 96 Oximetry Oxygen Delivery Room Air Method HEAD: Scar of prior right craniotomy present. Normocephalic. EYES: Pupils are equal round regular reactive to light and accommodation. There is conjunctival pallor. There is no scleral icterus. EARS: Tympanic membranes are intact. External auditory canals are clear. NOSE nose: There is no deviated nasal septum. There is no inflammation nasal mucous membrane. MOUTH: Mucous membranes of mouth are slightly dry. There is no bleeding from the gums. THROAT: There is no redness of the oropharynx. There is no exudates. SKIN: There is no petechia or ecchymosis. There is no skin lesions or skin rashes. NECK: Is supple. There is no JVD. Carotids are equal there is no bruit. There is no lymphadenopathy. There is no goiter. There is no accessory muscle respiration use. TRACHEA is central. LUNGS: Clear to auscultation percussion. Heart: S1-S2 is heard. There is no S3 gallop. There is no S4 gallop. There is mild mitral regurgitation murmur present. There is no aortic stenosis or aortic regurgitation murmur. There is no S3 gallop. There is no S4 gallop. S1 is of normal intensity. There is no pericardial rub. ABDOMEN: Soft nontender. There is no hepatosplenomegaly bowel sounds are well heard. EXTREMITIES: Femorals are well felt. There is no femoral bruits. Leg pulses well felt. There is no pedal edema. There is no DVT or cellulitis. There is no cyanosis or clubbing. 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 And also situation. He has weak upper extremity and lower extremity. No focal deficits though. PSYCHIATRIC: Patient is in spite of his low blood pressures judgment site seem to be intact. He does not appear to be anxious or agitated. Labs- All tests 24 hr 12/19/19 12/19/19 12/19/19 07:22 07:46 08:15 POC Glucose 66 L 152 H 116 H 12/19/19 12/19/19 12/19/19 08:56 11:18 16:15 POC Glucose 108 94 78 12/19/19 22:04 POC Glucose 79 Chest X-Ray 12/10/19 00:00 IMPRESSION: Clear lungs. IMPRESSION/RECOMMENDATION: 1. C. difficile colitis. Patient is on vancomycin and Flagyl. 2. Supraventricular tachycardia: The major cause of this patient's atrial tachycardia is the patient's hypocalcemia. We will continue the patient's metoprolol at current dosage.. 3. 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 4. Recalcitrant hypocalcemia.: Continue IV replacement of calcium. Need to keep the calcium is close to optimal levels as can be done, since the patient's SVT depends on the patient's calcium level. 5. Cardiomyopathy most likely secondary to hypocalcemia and supraventricular tachycardia. Quick look on the echo shows that the ejection fraction is probably around 35 to 40% moderately reduced. 6. Sepsis: Source not identified. Continue IV fluids. The patient is on p.o. vancomycin, and Flagyl. His other antibiotics have been stopped. No fever. 7. Pericarditis: Resolved. 8. Severe pain due to bony metastasis. Medications reviewed. Medical regimen and management plan discussed with attending physician. Medical decision making is of moderate complexity. 40 minutes spent as patient more than 50% time spent in direct patient care. Will follow. Hopefully anticipate patient's discharge soon. Cardiac status seems to be stable. Will sign off and follow the patient in the office. This is an concordance with the patient and the patient's family wishes. Discussed with Dr. Ramos, who is covering Dr. Haney.
[2019-12-20] MEDS: HEPARIN SOD (PORCINE) 5,000 UNIT/ML 1 ML VIAL SUBCUT SCH ×3 (05:55→21:09)
[2019-12-20] MEDS: PANTOPRAZOLE SODIUM 40 MG TABLET.DR PO SCH (05:59)
[2019-12-20] MEDS: RINGERS SOLUTION,LACTATED 1,000 ML IV PRN (05:59)
[2019-12-20] MEDS: COLCHICINE 0.6 MG TABLET PO SCH ×2 (05:59→17:35)
[2019-12-20] MEDS: ONDANSETRON HCL INJ/PF 4 MG/2 ML SDV IV PRN (06:04)
[2019-12-20] MEDS: INSULIN LISPRO 100 UNIT/ML 3 ML VIAL SUBCUT SCH ×4 (08:42→22:07)
[2019-12-20] MEDS: MEGESTROL ACETATE 20 MG TABLET PO SCH (10:04)
[2019-12-20] MEDS: FIDAXOMICIN 200 MG TABLET PO SCH ×2 (10:04→21:18)
[2019-12-20] MEDS: CALCIUM CARBONATE 500 MG TAB.CHEW PO SCH ×4 (10:04→21:18)
[2019-12-20] MEDS: METOPROLOL SUCCINATE 25 MG TAB.SR.24H PO SCH ×2 (10:04→21:18)
[2019-12-20] MEDS: RIFAXIMIN 200 MG TABLET PO SCH ×3 (10:04→17:35)
[2019-12-20] MEDS: LEVETIRACETAM 500 MG TABLET PO SCH ×2 (10:04→21:18)
[2019-12-20] MEDS: CALCIUM CARBONATE 500 MG TABLET PO SCH ×3 (10:04→17:35)
[2019-12-20] MEDS: DEXTROSE 50%-WATER SYRINGE 12.5 GM/25 ML DOSE IV PRN (12:00)
[2019-12-20] MEDS: DEXTROSE 5%-LACTATED RINGERS 1,000 ML IV PRN ×2 (12:30→21:20)
[2019-12-20] MEDS: TAMSULOSIN HCL 0.4 MG CAP.SR.24H PO SCH (17:35)
--- NOTE | 2019-12-20 18:48 | PDOC PROGRESS REPORT ---
Subjective Progress Note for:: 12/20/19 Subjective:: Patient seen by the bedside, he was started on Megace yesterday, he has hypoglycemia due to diminished intake, IV fluid is changed to 5% dextrose Reason For Visit: HYPOTENSION Physical Exam Vital Signs: Temp Pulse Resp BP Pulse Ox 98.0 F 72 17 113/72 99 12/20/19 15:39 12/20/19 15:39 12/20/19 15:39 12/20/19 15:39 12/20/19 15:39 Intake & Output 12/19/19 12/20/19 12/21/19 06:59 06:59 06:59 Intake Total 1555 3056 1297 Output Total 1125 1700 1200 Balance 430 1356 97 Weight 64.4 kg 65 kg General appearance: PRESENT: no acute distress Eye exam: PRESENT: PERRLA Respiratory exam: PRESENT: clear to auscultation rebecca Cardiovascular exam: PRESENT: +S1, +S2 Neurological exam: PRESENT: alert Results Laboratory Results: 12/17/19 05:15 12/17/19 05:15 Impressions: Chest X-Ray 12/10/19 00:00 IMPRESSION: Clear lungs. Assessment & Plan - Diagnosis (1) Sepsis Qualifiers: Sepsis type: sepsis due to unspecified organism Sepsis acute organ dysfunc tion status: without acute organ dysfunction Qualified Code(s): A41.9 - Sepsis, unspecified organism Is this a current diagnosis for this admission?: Yes (2) Hypocalcemia Is this a current diagnosis for this admission?: Yes (3) Anorexia Is this a current diagnosis for this admission?: Yes (4) Urinary retention Is this a current diagnosis for this admission?: Yes (5) Malignant neoplasm of prostate Is this a current diagnosis for this admission?: Yes - Time Time Spent with patient: 15-24 minutes Level of Care: CU
[2019-12-21] MEDS: DEXTROSE 5%-LACTATED RINGERS 1,000 ML IV PRN ×2 (05:51→15:40)
[2019-12-21] MEDS: PANTOPRAZOLE SODIUM 40 MG TABLET.DR PO SCH (05:51)
[2019-12-21] MEDS: COLCHICINE 0.6 MG TABLET PO SCH ×2 (05:51→17:06)
[2019-12-21] MEDS: HEPARIN SOD (PORCINE) 5,000 UNIT/ML 1 ML VIAL SUBCUT SCH ×3 (05:53→21:34)
[2019-12-21] MEDS: INSULIN LISPRO 100 UNIT/ML 3 ML VIAL SUBCUT SCH ×4 (08:23→21:34)
[2019-12-21] MEDS: FIDAXOMICIN 200 MG TABLET PO SCH ×2 (10:00→21:41)
[2019-12-21] MEDS: LEVETIRACETAM 500 MG TABLET PO SCH ×2 (10:00→21:41)
[2019-12-21] MEDS: METOPROLOL SUCCINATE 25 MG TAB.SR.24H PO SCH ×2 (10:00→21:41)
[2019-12-21] MEDS: MEGESTROL ACETATE 20 MG TABLET PO SCH (10:01)
[2019-12-21] MEDS: RIFAXIMIN 200 MG TABLET PO SCH ×3 (10:01→17:06)
[2019-12-21] MEDS: CALCIUM CARBONATE 500 MG TABLET PO SCH (10:01)
[2019-12-21] MEDS: CALCIUM CARBONATE 500 MG TAB.CHEW PO SCH ×4 (10:08→21:41)
[2019-12-21] MEDS: TAMSULOSIN HCL 0.4 MG CAP.SR.24H PO SCH (17:06)
[2019-12-22] MEDS: DEXTROSE 5%-LACTATED RINGERS 1,000 ML IV PRN ×3 (00:16→21:30)
[2019-12-22] MEDS: HEPARIN SOD (PORCINE) 5,000 UNIT/ML 1 ML VIAL SUBCUT SCH ×3 (05:24→21:22)
[2019-12-22] MEDS: PANTOPRAZOLE SODIUM 40 MG TABLET.DR PO SCH (05:29)
[2019-12-22] MEDS: COLCHICINE 0.6 MG TABLET PO SCH ×2 (05:29→17:25)
[2019-12-22] MEDS: INSULIN LISPRO 100 UNIT/ML 3 ML VIAL SUBCUT SCH ×4 (07:36→21:23)
--- NOTE | 2019-12-22 08:47 | PDOC PROGRESS REPORT ---
Subjective Progress Note for:: 12/21/19 Subjective:: Patient and nursing staff reported less diarrhea so far today. Po Intake remain a challenge with occasional nausea. No vomiting or abdominal pain. He denied any chest pain or difficulty with breathing. No reported fever or chills. Reason For Visit: HYPOTENSION Physical Exam Vital Signs: Temp Pulse Resp BP Pulse Ox 98.4 F 80 18 105/51 L 95 12/21/19 04:14 12/21/19 06:47 12/21/19 04:14 12/21/19 04:14 12/21/19 04:14 Intake & Output 12/20/19 12/21/19 12/22/19 06:59 06:59 06:59 Intake Total 3056 3397 Output Total 1700 3375 Balance 1356 22 Weight 65 kg 67.6 kg Physical Exam: General appearance: PRESENT: no acute distress Head exam: PRESENT: atraumatic, normocephalic Eye exam: PRESENT: conjunctiva pink. ABSENT: pallor, scleral icterus Ear exam: PRESENT: normal external ear exam Mouth exam: PRESENT: moist Respiratory exam: PRESENT: clear to auscultation rebecca, decreased breath sounds - at lung bases Cardiovascular exam: PRESENT: RRR, +S1, +S2, GI/Abdominal exam: PRESENT: normal bowel sounds, soft. ABSENT: distended, guarding, mass, organomegaly, rebound, tenderness : Indwelling Amanda catheter. Extremities exam: ABSENT: pedal edema Musculoskeletal exam: PRESENT: deformity - related to multiple joints involvement with arthritis Neurological exam: PRESENT: alert, awake, oriented to person, oriented to place, oriented to time, oriented to situation, CN II-XII grossly intact. ABSENT: motor sensory deficit Psychiatric exam: PRESENT: appropriate affect, normal mood. ABSENT: homicidal ideation, suicidal ideation Skin exam: PRESENT: dry, warm Results Laboratory Results: 12/17/19 05:15 12/17/19 05:15 Impressions: Chest X-Ray 12/10/19 00:00 IMPRESSION: Clear lungs. 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 Is this a current diagnosis for this admission?: Yes (5) Metastasis to brain Is this a current diagnosis for this admission?: Yes (6) Pain due to malignant neoplasm metastatic to bone Is this a current diagnosis for this admission?: Yes (7) Diabetes mellitus type 2 in nonobese Is this a current diagnosis for this admission?: Yes (8) HTN (hypertension) Qualifiers: Hypertension type: essential hypertension Qualified Code(s): I10 - Essential (primary) hypertension Is this a current diagnosis for this admission?: Yes (9) HLD (hyperlipidemia) Qualifiers: Hyperlipidemia type: pure hypertriglyceridemia Qualified Code(s): E78.1 - Pure hyperglyceridemia Is this a current diagnosis for this admission?: Yes (10) Clostridium difficile colitis Is this a current diagnosis for this admission?: Yes (11) Hypokalemia due to loss of potassium Is this a current diagnosis for this admission?: Yes (12) Hypomagnesemia Is this a current diagnosis for this admission?: Yes - Time Time Spent with patient: 25-34 minutes Level of Care: IMCU Medications reviewed and adjusted accordingly: Yes Anticipated discharge: Home with Homehealth Within: Other - Inpatient Certification Based on my medical assessment, after consideration of the patient's comorbidities, presenting symptoms, or acuity I expect that the services needed warrant INPATIENT care.: Yes I certify that my determination is in accordance with my understanding of Medicare's requirements for reasonable and necessary INPATIENT services [42 CFR 412.3e].: Yes Medical Necessity: Significant Comorbidiites Make Outpatient Treatment Too Risky, Need Close Monitoring Due to Risk of Patient Decompensation, Need For Continuous Telemetry Monitoring, Risk of Complication if Not Cared For in Hospital, Risk of Diagnosis Which Will Require Inpatient Eval/Care/Monitoring Post Hospital Care: D/C Dairy Processing Supervisor Documentation - Plan Summary Plan Summary: Continue current medication management. Possible D/C home with AIRPORT OPERATIONS SUPERVISOR services tomorrow.
--- NOTE | 2019-12-22 08:56 | PDOC PROGRESS REPORT ---
Subjective Progress Note for:: 12/22/19 Subjective:: Patient reported no diarrhea so far today. Nausea persist with poor PO intake. No vomiting or abdominal pain. He denied any chest pain or difficulty with breathing. No reported fever or chills. Reason For Visit: HYPOTENSION Physical Exam Vital Signs: Temp Pulse Resp BP Pulse Ox 98.6 F 84 18 115/77 96 12/22/19 08:00 12/22/19 08:00 12/22/19 08:00 12/22/19 08:00 12/22/19 08:00 Intake & Output 12/21/19 12/22/19 12/23/19 06:59 06:59 06:59 Intake Total 3397 3005 Output Total 3375 2450 Balance 22 555 Weight 67.6 kg 67.6 kg Physical Exam: General appearance: PRESENT: no acute distress Head exam: PRESENT: atraumatic, normocephalic Eye exam: PRESENT: conjunctiva pink. ABSENT: pallor, scleral icterus Ear exam: PRESENT: normal external ear exam Mouth exam: PRESENT: moist Respiratory exam: PRESENT: clear to auscultation rebecca, decreased breath sounds - at lung bases Cardiovascular exam: PRESENT: RRR, +S1, +S2, GI/Abdominal exam: PRESENT: normal bowel sounds, soft. ABSENT: distended, guarding, mass, organomegaly, rebound, tenderness : Indwelling Amanda catheter. Extremities exam: ABSENT: pedal edema Musculoskeletal exam: PRESENT: deformity - related to multiple joints involvement with arthritis Neurological exam: PRESENT: alert, awake, oriented to person, oriented to place, oriented to time, oriented to situation, CN II-XII grossly intact. ABSENT: motor sensory deficit Psychiatric exam: PRESENT: appropriate affect, normal mood. ABSENT: homicidal ideation, suicidal ideation Skin exam: PRESENT: dry, warm Results Laboratory Results: 12/17/19 05:15 12/17/19 05:15 Impressions: Chest X-Ray 12/10/19 00:00 IMPRESSION: Clear lungs. 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 Is this a current diagnosis for this admission?: Yes (5) Metastasis to brain Is this a current diagnosis for this admission?: Yes (6) Pain due to malignant neoplasm metastatic to bone Is this a current diagnosis for this admission?: Yes (7) Diabetes mellitus type 2 in nonobese Is this a current diagnosis for this admission?: Yes (8) HTN (hypertension) Qualifiers: Hypertension type: essential hypertension Qualified Code(s): I10 - Essential (primary) hypertension Is this a current diagnosis for this admission?: Yes (9) HLD (hyperlipidemia) Qualifiers: Hyperlipidemia type: pure hypertriglyceridemia Qualified Code(s): E78.1 - Pure hyperglyceridemia Is this a current diagnosis for this admission?: Yes (10) Clostridium difficile colitis Is this a current diagnosis for this admission?: Yes (11) Hypokalemia due to loss of potassium Is this a current diagnosis for this admission?: Yes (12) Hypomagnesemia Is this a current diagnosis for this admission?: Yes - Time Time Spent with patient: 25-34 minutes Level of Care: IMCU Medications reviewed and adjusted accordingly: Yes Anticipated discharge: Home with Homehealth Within: Other - Inpatient Certification Based on my medical assessment, after consideration of the patient's comorbiditi es, presenting symptoms, or acuity I expect that the services needed warrant INPATIENT care.: Yes I certify that my determination is in accordance with my understanding of [facility]'s requirements for reasonable and necessary INPATIENT services [42 CFR 412.3e].: Yes Medical Necessity: Significant Comorbidiites Make Outpatient Treatment Too Risky, Need Close Monitoring Due to Risk of Patient Decompensation, Need For IV Fluids, Need For Continuous Telemetry Monitoring, Risk of Complication if Not Cared For in Hospital, Risk of Diagnosis Which Will Require Inpatient Eval/Care/Monitoring - Plan Summary Plan Summary: Continue current medication management. iscuss disposition plan with daughter regarding home with hospice.
[2019-12-22] MEDS: CALCIUM CARBONATE 500 MG TAB.CHEW PO SCH ×4 (09:45→21:25)
[2019-12-22] MEDS: FENTANYL 25 MCG/HR PATCH.TD72 TOP SCH (09:45)
[2019-12-22] MEDS: FIDAXOMICIN 200 MG TABLET PO SCH ×2 (09:45→21:25)
[2019-12-22] MEDS: RIFAXIMIN 200 MG TABLET PO SCH ×3 (09:46→17:25)
[2019-12-22] MEDS: LEVETIRACETAM 500 MG TABLET PO SCH ×2 (09:46→21:25)
[2019-12-22] MEDS: MEGESTROL ACETATE 20 MG TABLET PO SCH (09:46)
[2019-12-22] MEDS: METOPROLOL SUCCINATE 25 MG TAB.SR.24H PO SCH ×2 (09:46→21:25)
[2019-12-22] MEDS ORDERED: DILTIAZEM HCL/D5W 125 MG/125 ML RTUINJ IV PRN (12:02)
[2019-12-22] MEDS ORDERED: DIGOXIN INJ 0.5 MG/2 ML AMPULE ONE (14:44)
[2019-12-22] MEDS ORDERED: CALCIUM GLUC IN NACL, ISO-OSM 1 GM/50 ML RTUPB IV ONE (14:45)
[2019-12-22] MEDS ORDERED: CALCIUM GLUCONATE 1 GM/NS 50 ML RTU IV ONE (15:00)
[2019-12-22] MEDS ORDERED: DIGOXIN INJ 0.5 MG/2 ML AMPULE IV ONE (15:00)
[2019-12-22 15:19] LABS: HEMATOCRIT 26.6 % (37.9-51.0); MEAN CORPUSCULAR HGB CONC 33.7 g/dL (32.0-36.0); MEAN CORPUSCULAR VOLUME 83 fl (80-97); PLATELET COUNT 153 10^3/uL (150-450); RED CELL DISTRIBUTION WIDTH 19.3 % (11.5-14.0); WHITE BLOOD COUNT 5.2 10^3/uL (4.0-10.5)
[2019-12-22 15:37] LABS: ANION GAP 6 (5-19); CARBON DIOXIDE 25 mmol/L (22-30); CHLORIDE 115 mmol/L (98-107); GLUCOSE 129 mg/dL (75-110)
[2019-12-22 15:38] LABS: BLOOD UREA NITROGEN < 2 mg/dL (7-20)
[2019-12-22 15:40] LABS: CALCIUM 6.1 mg/dL (8.4-10.2)
[2019-12-22 16:17] LABS: ABSOLUTE LYMPHOCYTES# (MANUAL) 0.9 10^3/uL (0.5-4.7); BAND NEUTROPHILS % (MANUAL) 2 % (3-5); BASOPHILS % (MANUAL) 0 % (0-2); EOSINOPHILS % (MANUAL) 3 % (0-6); LYMPHOCYTES % (MANUAL) 17 % (13-45); MONOCYTES % (MANUAL) 19 % (3-13); NUCLEATED RED BLOOD CELLS 1 /100 WBC (0); SEGMENTED NEUTROPHILS % (MAN) 59 % (42-78); TOTAL CELLS COUNTED 100
[2019-12-22 16:18] LABS: ANISOCYTOSIS 2+; OVALOCYTES SLIGHT; PLATELET COMMENT ADEQUATE; POIKILOCYTOSIS 1+
[2019-12-22] MEDS: TAMSULOSIN HCL 0.4 MG CAP.SR.24H PO SCH (17:25)
[2019-12-22] MEDS ORDERED: CALCIUM GLUCONATE 2,222 MG in DEXTROSE 5%-WATER 100 ML IV ONE (20:00)
[2019-12-22] MEDS: POTASSI CL 20 MEQ/50 ML RIDER 20 MEQ/50 ML RTUPB IV SCH ×2 (20:03→22:09)
[2019-12-22] MEDS: ONDANSETRON HCL INJ/PF 4 MG/2 ML SDV IV PRN (21:30)
[2019-12-23] MEDS: POTASSI CL 20 MEQ/50 ML RIDER 20 MEQ/50 ML RTUPB IV SCH (00:13)
[2019-12-23] MEDS: HEPARIN SOD (PORCINE) 5,000 UNIT/ML 1 ML VIAL SUBCUT SCH ×3 (05:06→21:00)
[2019-12-23] MEDS: PANTOPRAZOLE SODIUM 40 MG TABLET.DR PO SCH (05:51)
[2019-12-23] MEDS: COLCHICINE 0.6 MG TABLET PO SCH ×2 (05:52→17:20)
[2019-12-23 06:31] LABS: HEMATOCRIT 25.6 % (37.9-51.0); HEMOGLOBIN 8.6 g/dL (13.5-17.0); MEAN CORPUSCULAR HEMOGLOBIN 27.9 pg (27.0-33.4); MEAN CORPUSCULAR HGB CONC 33.6 g/dL (32.0-36.0); MEAN CORPUSCULAR VOLUME 83 fl (80-97); PLATELET COUNT 153 10^3/uL (150-450); RED BLOOD COUNT 3.08 10^6/uL (4.35-5.55); RED CELL DISTRIBUTION WIDTH 19.3 % (11.5-14.0); WHITE BLOOD COUNT 4.9 10^3/uL (4.0-10.5)
[2019-12-23] MEDS: DEXTROSE 5%-LACTATED RINGERS 1,000 ML IV PRN ×2 (06:56→20:53)
[2019-12-23 07:04] LABS: ANION GAP 6 (5-19); CARBON DIOXIDE 24 mmol/L (22-30); CHLORIDE 117 mmol/L (98-107); GLUCOSE 114 mg/dL (75-110); POTASSIUM 3.8 mmol/L (3.6-5.0)
[2019-12-23 07:08] LABS: BLOOD UREA NITROGEN < 2 mg/dL (7-20)
[2019-12-23 07:19] LABS: CALCIUM 6.4 mg/dL (8.4-10.2)
[2019-12-23] MEDS: INSULIN LISPRO 100 UNIT/ML 3 ML VIAL SUBCUT SCH ×4 (08:55→22:22)
[2019-12-23] MEDS: CALCIUM CARBONATE 500 MG TAB.CHEW PO SCH ×4 (08:56→22:23)
[2019-12-23] MEDS: ONDANSETRON HCL INJ/PF 4 MG/2 ML SDV IV PRN ×2 (10:00→21:39)
[2019-12-23] MEDS: METOPROLOL SUCCINATE 25 MG TAB.SR.24H PO SCH ×2 (10:11→22:23)
[2019-12-23] MEDS: FIDAXOMICIN 200 MG TABLET PO SCH ×2 (10:11→22:22)
[2019-12-23] MEDS: RIFAXIMIN 200 MG TABLET PO SCH ×3 (10:11→17:20)
[2019-12-23] MEDS: MEGESTROL ACETATE 20 MG TABLET PO SCH (10:11)
[2019-12-23] MEDS: LEVETIRACETAM 500 MG TABLET PO SCH ×2 (10:11→22:23)
[2019-12-23] MEDS ORDERED: CALCIUM GLUCONATE 6,666 MG in DEXTROSE 5%-WATER 500 ML IV ONE (13:00)
[2019-12-23] MEDS: TAMSULOSIN HCL 0.4 MG CAP.SR.24H PO SCH (17:20)
--- NOTE | 2019-12-24 01:40 | PDOC PROGRESS REPORT ---
Subjective Progress Note for:: 12/23/19 Subjective:: Patient reported persistent poor appetite and P.O intake. He reported some nausea and diarrhea. No vomiting or abdominal pain. He denied any chest pain or difficulty with breathing. No reported fever or chills. He received several doses of calcium, Potassium, and magnesium riders since last evaluation due electrolytes imbalance with associated tachycardia. Reason For Visit: HYPOTENSION Physical Exam Vital Signs: Temp Pulse Resp BP Pulse Ox 98.2 F 135 H 18 96/66 L 97 12/23/19 15:59 12/23/19 15:59 12/23/19 15:59 12/23/19 15:59 12/23/19 15:59 Intake & Output 12/22/19 12/23/19 12/24/19 06:59 06:59 06:59 Intake Total 3005 3994 480 Output Total 2450 2475 900 Balance 555 1519 -420 Weight 67.6 kg 67.1 kg Physical Exam: General appearance: PRESENT: no acute distress Head exam: PRESENT: atraumatic, normocephalic Eye exam: PRESENT: conjunctiva pink. ABSENT: pallor, scleral icterus Ear exam: PRESENT: normal external ear exam Mouth exam: PRESENT: moist Respiratory exam: PRESENT: clear to auscultation rebecca, decreased breath sounds - at lung bases Cardiovascular exam: PRESENT: RRR, +S1, +S2, GI/Abdominal exam: PRESENT: normal bowel sounds, soft. ABSENT: distended, guarding, mass, organomegaly, rebound, tenderness : Indwelling Amanda catheter. Extremities exam: ABSENT: pedal edema Musculoskeletal exam: PRESENT: deformity - related to multiple joints involvement with arthritis Neurological exam: PRESENT: alert, awake, oriented to person, oriented to place, oriented to time, oriented to situation, CN II-XII grossly intact. ABSENT: motor sensory deficit Psychiatric exam: PRESENT: appropriate affect, normal mood. ABSENT: homicidal ideation, suicidal ideation Skin exam: PRESENT: dry, warm Results Laboratory Results: 12/23/19 06:00 12/23/19 06:00 12/22/19 12/23/19 12/23/19 14:55 06:00 06:00 WBC 4.9 RBC 3.08 L Hgb 8.6 L Hct 25.6 L MCV 83 MCH 27.9 MCHC 33.6 RDW 19.3 H Plt Count 153 Sodium 146.7 H Potassium 3.8 Chloride 117 H Carbon Dioxide 24 Anion Gap 6 BUN < 2 L Creatinine 0.54 Est GFR ( Amer) > 60 Glucose 114 H Calcium 6.4 L* Magnesium 1.1 L* 1.1 L* Impressions: Chest X-Ray 12/10/19 00:00 IMPRESSION: Clear lungs. 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 Is this a current diagnosis for this admission?: Yes (5) Metastasis to brain Is this a current diagnosis for this admission?: Yes (6) Pain due to malignant neoplasm metastatic to bone Is this a current diagnosis for this admission?: Yes (7) Diabetes mellitus type 2 in nonobese Is this a current diagnosis for this admission?: Yes (8) HTN (hypertension) Qualifiers: Hypertension type: essential hypertension Qualified Code(s): I10 - Es sential (primary) hypertension Is this a current diagnosis for this admission?: Yes (9) HLD (hyperlipidemia) Qualifiers: Hyperlipidemia type: pure hypertriglyceridemia Qualified Code(s): E78.1 - Pure hyperglyceridemia Is this a current diagnosis for this admission?: Yes (10) Clostridium difficile colitis Is this a current diagnosis for this admission?: Yes (11) Hypokalemia due to loss of potassium Is this a current diagnosis for this admission?: Yes (12) Hypomagnesemia Is this a current diagnosis for this admission?: Yes - Time Time Spent with patient: 25-34 minutes Level of Care: IMCU Medications reviewed and adjusted accordingly: Yes Anticipated discharge: Home, Hospice Within: Other - Inpatient Certification Based on my medical assessment, after consideration of the patient's comorbidities, presenting symptoms, or acuity I expect that the services needed warrant INPATIENT care.: Yes I certify that my determination is in accordance with my understanding of Medicare's requirements for reasonable and necessary INPATIENT services [42 CFR 412.3e].: Yes Medical Necessity: Significant Comorbidiites Make Outpatient Treatment Too Risky, Need Close Monitoring Due to Risk of Patient Decompensation, Need For IV Fluids, Need For Continuous Telemetry Monitoring, Risk of Complication if Not Cared For in Hospital, Risk of Diagnosis Which Will Require Inpatient Eval/Care/Monitoring Post Hospital Care: D/C Selling Underwriter Documentation - Plan Summary Plan Summary: I had extensive discussion with patient an family at bedside regarding his poor prognosis and poor functional status. It is agreed upon that patient will be discharged home to hospice when arrangement with MANAGER MANAGEMENT with hospice capacity admit him to their service. Family will get back to me about their choice of MANAGER MANAGEMENT. Meanwhile will we continue current medical management. He remain on DNR status
[2019-12-24] MEDS: DEXTROSE 5%-LACTATED RINGERS 1,000 ML IV PRN ×2 (05:00→15:11)
[2019-12-24] MEDS: COLCHICINE 0.6 MG TABLET PO SCH ×2 (05:02→17:24)
[2019-12-24] MEDS: PANTOPRAZOLE SODIUM 40 MG TABLET.DR PO SCH (05:03)
[2019-12-24] MEDS: HEPARIN SOD (PORCINE) 5,000 UNIT/ML 1 ML VIAL SUBCUT SCH ×3 (05:03→22:29)
[2019-12-24] MEDS: INSULIN LISPRO 100 UNIT/ML 3 ML VIAL SUBCUT SCH ×3 (08:30→22:28)
[2019-12-24] MEDS: CALCIUM CARBONATE 500 MG TAB.CHEW PO SCH ×4 (09:19→22:30)
[2019-12-24] MEDS: FIDAXOMICIN 200 MG TABLET PO SCH ×2 (10:37→22:29)
[2019-12-24] MEDS: LEVETIRACETAM 500 MG TABLET PO SCH ×2 (10:38→22:29)
[2019-12-24] MEDS: MEGESTROL ACETATE 20 MG TABLET PO SCH (10:38)
[2019-12-24] MEDS: RIFAXIMIN 200 MG TABLET PO SCH ×3 (10:38→17:25)
[2019-12-24] MEDS: METOPROLOL SUCCINATE 25 MG TAB.SR.24H PO SCH ×2 (13:26→22:30)
[2019-12-24] MEDS: ONDANSETRON HCL INJ/PF 4 MG/2 ML SDV IV PRN (15:10)
[2019-12-24] MEDS: TAMSULOSIN HCL 0.4 MG CAP.SR.24H PO SCH (17:24)
--- NOTE | 2019-12-24 19:07 | PDOC PROGRESS REPORT ---
Subjective Progress Note for:: 12/24/19 Subjective:: Patient has been refusing his medication and not eating so far today. Family selected [facility] for home hospice service and he will be admitted to the service tomorrow. Reason For Visit: HYPOTENSION Physical Exam Vital Signs: Temp Pulse Resp BP Pulse Ox 99.0 F 109 H 18 124/56 L 99 12/24/19 17:24 12/24/19 17:24 12/24/19 17:24 12/24/19 17:24 12/24/19 17:24 Intake & Output 12/23/19 12/24/19 12/25/19 06:59 06:59 06:59 Intake Total 3994 3146.66 1000 Output Total 2475 2850 Balance 1519 296.66 1000 Weight 67.1 kg 67.3 kg Physical Exam: General appearance: PRESENT: no acute distress Head exam: PRESENT: atraumatic, normocephalic Eye exam: PRESENT: conjunctiva pink. ABSENT: pallor, scleral icterus Ear exam: PRESENT: normal external ear exam Mouth exam: PRESENT: moist Respiratory exam: PRESENT: clear to auscultation rebecca, decreased breath sounds - at lung bases Cardiovascular exam: PRESENT: RRR, +S1, +S2, GI/Abdominal exam: PRESENT: normal bowel sounds, soft. ABSENT: distended, gu arding, mass, organomegaly, rebound, tenderness : Indwelling Amanda catheter. Extremities exam: ABSENT: pedal edema Neurological exam: PRESENT: alert, awake Psychiatric exam: PRESENT: appropriate affect, normal mood. ABSENT: homicidal ideation, suicidal ideation Skin exam: PRESENT: dry, warm Results Laboratory Results: 12/23/19 06:00 12/23/19 06:00 Impressions: Chest X-Ray 12/10/19 00:00 IMPRESSION: Clear lungs. 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 Is this a current diagnosis for this admission?: Yes (5) Metastasis to brain Is this a current diagnosis for this admission?: Yes (6) Pain due to malignant neoplasm metastatic to bone Is this a current diagnosis for this admission?: Yes (7) Diabetes mellitus type 2 in nonobese Is this a current diagnosis for this admission?: Yes (8) HTN (hypertension) Qualifiers: Hypertension type: essential hypertension Qualified Code(s): I10 - Essential (primary) hypertension Is this a current diagnosis for this admission?: Yes (9) HLD (hyperlipidemia) Qualifiers: Hyperlipidemia type: pure hypertriglyceridemia Qualified Code(s): E78.1 - Pure hyperglyceridemia Is this a current diagnosis for this admission?: Yes (10) Clostridium difficile colitis Is this a current diagnosis for this admission?: Yes (11) Hypokalemia due to loss of potassium Is this a current diagnosis for this admission?: Yes (12) Hypomagnesemia Is this a current diagnosis for this admission?: Yes - Time Time Spent with patient: 25-34 minutes Level of Care: IMCU Medications reviewed and adjusted accordingly: Yes Anticipated discharge: Home, Hospice Within: within 24 hours - Inpatient Certification Based on my medical assessment, after consideration of the patient's comorbidities, presenting symptoms, or acuity I expect that the services needed warrant INPATIENT care.: Yes I certify that my determination is in accordance with my understanding of Medicare's requirements for reasonable and necessary INPATIENT services [42 CFR 412.3e].: Yes Medical Necessity: Significant Comorbidiites Make Outpatient Treatment Too Risky, Need Close Monitoring Due to Risk of Patient Decompensation, Need For Continuous Telemetry Monitoring, Risk of Complication if Not Cared For in Hospital, Risk of Diagnosis Which Will Require Inpatient Eval/Care/Monitoring Post Hospital Care: D/C Slag Mixer Documentation - Plan Summary Plan Summary: Continue current medication management. Continue effort on transition to hospice care.
[2019-12-24] MEDS ORDERED: ONDANSETRON HCL 8 MG TABLET PO ONE (20:00)
[2019-12-24] MEDS ORDERED: ONDANSETRON HCL INJ/PF 4 MG/2 ML SDV IV ONE (20:30)
[2019-12-24] MEDS: ONDANSETRON HCL INJ/PF 4 MG/2 ML SDV IV ONE ×2 (21:07→21:10)
[2019-12-25] MEDS: DEXTROSE 5%-LACTATED RINGERS 1,000 ML IV PRN ×2 (00:36→10:00)
[2019-12-25] MEDS: ONDANSETRON HCL INJ/PF 4 MG/2 ML SDV IV PRN ×3 (01:11→09:57)
[2019-12-25] MEDS: COLCHICINE 0.6 MG TABLET PO SCH (05:33)
[2019-12-25] MEDS: PANTOPRAZOLE SODIUM 40 MG TABLET.DR PO SCH (05:33)
[2019-12-25] MEDS: HEPARIN SOD (PORCINE) 5,000 UNIT/ML 1 ML VIAL SUBCUT SCH ×2 (05:33→15:55)
[2019-12-25] MEDS: CALCIUM CARBONATE 500 MG TAB.CHEW PO SCH ×2 (09:53→12:26)
[2019-12-25] MEDS: INSULIN LISPRO 100 UNIT/ML 3 ML VIAL SUBCUT SCH ×2 (09:58→14:58)
[2019-12-25] MEDS: FENTANYL 25 MCG/HR PATCH.TD72 TOP SCH (09:59)
[2019-12-25] MEDS: MEGESTROL ACETATE 20 MG TABLET PO SCH (12:17)
[2019-12-25] MEDS: METOPROLOL SUCCINATE 25 MG TAB.SR.24H PO SCH (12:17)
[2019-12-25] MEDS: LEVETIRACETAM 500 MG TABLET PO SCH (12:18)
[2019-12-25] MEDS: RIFAXIMIN 200 MG TABLET PO SCH ×2 (12:18→15:13)
[2019-12-25] MEDS: ACETAMINOPHEN SOLN 325 MG/10.15 ML UDCUP PO PRN (12:19)
[2019-12-25] MEDS: FIDAXOMICIN 200 MG TABLET PO SCH (15:06)
--- NOTE | 2019-12-25 15:28 | PDOC DISCHARGE SUMMARY ---
Impression - Admit/DC Date/PCP Admission Date/Primary Care Provider: 12/08/19 21:08 KENZIE DALTON Discharge Date: 12/25/19 - Discharge Diagnosis (1) Fever Is this a current diagnosis for this admission?: Yes (2) Hypocalcemia Is this a current diagnosis for this admission?: Yes (3) Paroxysmal SVT (supraventricular tachycardia) Is this a current diagnosis for this admission?: Yes (4) Malignant neoplasm of prostate metastatic to bone Is this a current diagnosis for this admission?: Yes (5) Metastasis to brain Is this a current diagnosis for this admission?: Yes (6) Pain due to malignant neoplasm metastatic to bone Is this a current diagnosis for this admission?: Yes (7) Diabetes mellitus type 2 in nonobese Is this a current diagnosis for this admission?: Yes (8) HTN (hypertension) Is this a current diagnosis for this admission?: Yes (9) HLD (hyperlipidemia) Is this a current diagnosis for this admission?: Yes (10) Clostridium difficile colitis Is this a current diagnosis for this admission?: Yes (11) Hypokalemia due to loss of potassium Is this a current diagnosis for this admission?: Yes (12) Hypomagnesemia Is this a current diagnosis for this admission?: Yes - Assessment Summary: Patient was admitted for new onset severe pelvic pain and urinary retention with need for indwelling Amanda catheter and bladder ultrasound that revealed bladder wall invasion by his metastatic prostate cancer with brain involvement. His hospitalization was further complicated with severe electrolyte imbalance with arrhythmia. He was seen in consultation by Dr. cMdaniel, during this hospitalization. Patient continue to declined despite treatment and patient started refusing his food and medication. His functional status declined and his overall prognosis remain very poor. His family was able to complete his advance care planning and made patient a do not resuscitate. After extensive discussion with the family, he was placed in hospice program. He will be discharged to home hospice under [facility] today. - Additional Information Resuscitation Status: Do Not Resuscitate Referrals: KENZIE DALTON MD [Primary Care Provider] - Follow up as needed Home Medications: Ergocalciferol (Vitamin D2) [Drisdol 50,000 unit (1.25MG) Capsule] 50,000 unit PO MO 11/04/19 Granisetron [Sancuso] 1 patch TD ASDIR PRN 11/04/19 Insulin Glargine,Hum.rec.anlog [Lantus Insulin 100 Unit/1 ml 10 ml] 24 units SQ QHS 11/04/19 Levetiracetam [Keppra 500 mg Tablet] 500 mg PO Q12 11/04/19 Linagliptin [Tradjenta] 5 mg PO DAILY 11/04/19 Oxycodone HCl [Oxy-Ir 5 mg Tablet] 10 mg PO Q3HP PRN 11/04/19 Prednisone 10 mg PO DAILY 11/04/19 Tamsulosin HCl [Flomax 0.4 mg Cap.sr] 0.4 mg PO QPM 11/04/19 Fentanyl [Duragesic 25 mcg/hr Transdermal Patch] 1 patch TOP Q3D 11/17/19 Rosuvastatin Calcium [Crestor 20 mg Tablet] 20 mg PO QHS 11/17/19 Calcium Carbonate [Os-Daniele 500 mg Tablet (Oyster-Shell)] 500 mg PO TID #90 tablet 11/28/19 Verapamil HCl [Calan Sr 120 mg Tablet.sa] 120 mg PO Q12 #60 tablet.sa 11/28/19 Loratadine [Claritin 10 mg Tablet] 10 mg PO DAILY 12/08/19 History of Present Illiness History of Present Illness: MARIAA ALCANTAR JR is a 69 year old male patient known to my practice with history of metastatic prostate cancer and brain involvement who presented to the ED with more than usual new onset pelvic pain. He denied any recent fall, trauma, or instrumentation. He demonstrated urinary retention upon presentation with bladder US revealing urine volume over 1liter in the bladder with eroding bladder wall. Currently has indwelling Amanda catheter. He denied any recent voiding problem, recurrent hematuria, or flank pain. Patient expressed more concern about his pelvic pain. He denied any nausea, vomiting, diarrhea or constipation. His appetite and oral intake remain poor. His initial evaluation was significant for severe hypocalcemia, elevated AST and alkaline phosphatase that is related to his bone metastases. He was advised hospitalization for further evaluation and management. His morbidities are listed below. Hospital Course Hospital Course: Patient was admitted for new onset severe pelvic pain and urinary retention with need for indwelling Amanda catheter and bladder ultrasound that revealed bladder wall invasion by his metastatic prostate cancer with brain involvement. His hospitalization was further complicated with severe electrolyte imbalance with arrhythmia. He was seen in consultation by Dr. Mcdaniel, during this hospitalization. Patient continue to declined despite treatment and patient started refusing his food and medication. His functional status declined and his overall prognosis remain very poor. His family was able to complete his advance care planning and made patient a do not resuscitate. After extensive discussion with the family, he was placed in hospice program. He will be discharged to home hospice under [facility] today. Physical Exam Vital Signs: Temp Pulse Resp BP Pulse Ox 99.2 F 127 H 20 110/69 99 12/24/19 20:09 12/25/19 07:00 12/24/19 20:09 12/24/19 20:09 12/24/19 20:09 Intake & Output 12/24/19 12/25/19 12/26/19 06:59 06:59 06:59 Intake Total 3146.66 2300 1000 Output Total 2850 2000 Balance 296.66 300 1000 Weight 67.3 kg 67 kg General appearance: PRESENT: no acute distress Head exam: PRESENT: atraumatic, normocephalic Eye exam: PRESENT: conjunctiva pink. ABSENT: pallor, scleral icterus Ear exam: PRESENT: normal external ear exam Mouth exam: PRESENT: moist Respiratory exam: PRESENT: clear to auscultation rebecca, decreased breath sounds - at lung bases Cardiovascular exam: PRESENT: RRR, +S1, +S2, GI/Abdominal exam: PRESENT: normal bowel sounds, soft. ABSENT: distended, guarding, mass, organomegaly, rebound, tenderness : Indwelling Amanda catheter. Extremities exam: ABSENT: pedal edema Neurological exam: PRESENT: alert, awake Psychiatric exam: PRESENT: appropriate affect, normal mood. ABSENT: homicidal ideation, suicidal ideation Skin exam: PRESENT: dry, warm Results Laboratory Results: WBC 4.9 10^3/uL (4.0-10.5) 12/23/19 06:00 RBC 3.08 10^6/uL (4.35-5.55) L 12/23/19 06:00 Hgb 8.6 g/dL (13.5-17.0) L 12/23/19 06:00 Hct 25.6 % (37.9-51.0) L 12/23/19 06:00 MCV 83 fl (80-97) 12/23/19 06:00 MCH 27.9 pg (27.0-33.4) 12/23/19 06:00 MCHC 33.6 g/dL (32.0-36.0) 12/23/19 06:00 RDW 19.3 % (11.5-14.0) H 12/23/19 06:00 Plt Count 153 10^3/uL (150-450) 12/23/19 06:00 Lymph % (Auto) Not Reportable 12/22/19 14:55 [place] % (Auto) Not Reportable 12/22/19 14:55 Eos % (Auto) Not Reportable 12/22/19 14:55 Baso % (Auto) Not Reportable 12/22/19 14:55 Absolute Neuts (auto) Not Reportable 12/22/19 14:55 Absolute Lymphs (auto) Not Reportable 12/22/19 14:55 Absolute Monos (auto) Not Reportable 12/22/19 14:55 Absolute Eos (auto) Not Reportable 12/22/19 14:55 Absolute Basos (auto) Not Reportable 12/22/19 14:55 Total Counted 100 12/22/19 14:55 Seg Neutrophils % Not Reportable 12/22/19 14:55 Seg Neuts % (Manual) 59 % (42-78) 12/22/19 14:55 Band Neutrophils % 2 % (3-5) L 12/22/19 14:55 Lymphocytes % (Manual) 17 % (13-45) 12/22/19 14:55 Atypical Lymphs % 3 % (0) 12/16/19 06:27 Monocytes % (Manual) 19 % (3-13) H 12/22/19 14:55 Eosinophils % (Manual) 3 % (0-6) 12/22/19 14:55 Basophils % (Manual) 0 % (0-2) 12/22/19 14:55 Metamyelocytes % 1 % (0-1) 12/16/19 06:27 Abs Neuts (Manual) 3.2 10^3/uL (1.7-8.2) 12/22/19 14:55 Abs Lymphs (Manual) 0.9 10^3/uL (0.5-4.7) 12/22/19 14:55 Abs Monocytes (Manual) 1.0 10^3/uL (0.1-1.4) 12/22/19 14:55 Absolute Eos (Manual) 0.2 10^3/uL (0.0-0.6) 12/22/19 14:55 Abs Basophils (Manual) 0.0 10^3/uL (0.0-0.2) 12/22/19 14:55 Nucleated RBCs 1 /100 WBC (0) 12/22/19 14:55 Toxic Granulation SLIGHT 12/16/19 06:27 Platelet Estimate Cancelled 12/15/19 06:38 Platelet Comment ADEQUATE 12/22/19 14:55 Polychromasia SLIGHT 12/17/19 05:15 Poikilocytosis 1+ 12/22/19 14:55 Anisocytosis 2+ 12/22/19 14:55 Tear Drop Cells SLIGHT 12/17/19 05:15 Ovalocytes SLIGHT 12/22/19 14:55 Schistocytes SLIGHT 12/17/19 05:15 ESR 111 mm/hr (0-20) H 12/12/19 15:30 PT 18.4 SEC (11.4-15.4) H 12/08/19 20:11 INR 1.51 12/08/19 20:11 INR (Anticoag Therapy) Cancelled 12/08/19 19:36 VBG pH 7.36 (7.30-7.42) 12/08/19 19:54 VBG pCO2 28.5 mmHg (35-63) L 12/08/19 19:54 VBG HCO3 15.8 mmol/L (20-32) L 12/08/19 19:54 VBG Base Excess -8.1 mmol/L 12/08/19 19:54 Sodium 146.7 mmol/L (137-145) H 12/23/19 06:00 Potassium 3.8 mmol/L (3.6-5.0) 12/23/19 06:00 Chloride 117 mmol/L (98-107) H 12/23/19 06:00 Carbon Dioxide 24 mmol/L (22-30) 12/23/19 06:00 Anion Gap 6 (5-19) 12/23/19 06:00 BUN < 2 mg/dL (7-20) L 12/23/19 06:00 Creatinine 0.54 mg/dL (0.52-1.25) 12/23/19 06:00 Est GFR ( Amer) > 60 (>60) 12/23/19 06:00 Est GFR (Non-Af Amer) Cancelled 12/15/19 06:38 Est GFR (MDRD) Non-Af > 60 (>60) 12/23/19 06:00 Glucose 114 mg/dL (75-110) H 12/23/19 06:00 POC Glucose 127 mg/dL (70-110) H 12/25/19 11:52 Lactic Acid 0.9 mmol/L (0.7-2.1) 12/09/19 01:49 Calcium 6.4 mg/dL (8.4-10.2) L* 12/23/19 06:00 Ionized Calcium [place] 0.90 mmol/L (1.14-1.30) L 12/14/19 08:47 Phosphorus 2.1 mg/dL (2.5-4.5) L 12/14/19 05:40 Magnesium 1.1 mg/dL (1.6-2.3) L* 12/23/19 06:00 Total Bilirubin 0.3 mg/dL (0.2-1.3) 12/17/19 05:15 Direct Bilirubin 0.3 mg/dL (0.0-0.4) 12/17/19 05:15 Neonat Total Bilirubin Not Reportable 12/17/19 05:15 Neonat Direct Bilirubin 0.0 mg/dL (0.0-0.3) 12/17/19 05:15 Neonat Indirect Bili 0.0 mg/dL (0.0-1.1) 12/17/19 05:15 AST 93 U/L (17-59) H 12/17/19 05:15 ALT 25 U/L (<50) 12/17/19 05:15 Alkaline Phosphatase 2949 U/L (38-126) H 12/17/19 05:15 C-Reactive Protein 384.3 mg/L (<10.0) H 12/10/19 19:10 Total Protein 4.8 g/dL (6.3-8.2) L 12/17/19 05:15 Albumin 2.2 g/dL (3.5-5.0) L 12/17/19 05:15 EGFR Cancelled 12/15/19 06:38 Urine Color YELLOW 12/15/19 12:20 Urine Appearance CLEAR 12/15/19 12:20 Urine pH 7.0 (5.0-9.0) 12/15/19 12:20 Ur Specific [place] 1.008 12/15/19 12:20 Urine Protein NEGATIVE mg/dL (NEGATIVE) 12/15/19 12:20 Urine Glucose (UA) NEGATIVE mg/dL (NEGATIVE) 12/15/19 12:20 Urine Ketones NEGATIVE mg/dL (NEGATIVE) 12/15/19 12:20 Urine Blood SMALL (NEGATIVE) H 12/15/19 12:20 Urine Nitrite NEGATIVE (NEGATIVE) 12/15/19 12:20 Urine Bilirubin NEGATIVE (NEGATIVE) 12/15/19 12:20 Urine Urobilinogen NEGATIVE mg/dL (<2.0) 12/15/19 12:20 Ur Leukocyte Esterase NEGATIVE (NEGATIVE) 12/15/19 12:20 Urine WBC (Auto) 2 /HPF 12/15/19 12:20 Urine RBC (Auto) 16 /HPF 12/15/19 12:20 U Hyaline Cast (Auto) 1 /LPF 12/08/19 21:54 Urine Bacteria (Auto) TRACE /HPF 12/15/19 12:20 Squamous Epi Cells Auto 1 /HPF 12/08/19 21:54 Urine Mucus (Auto) RARE /LPF 12/15/19 12:20 Urine Ascorbic Acid NEGATIVE (NEGATIVE) 12/15/19 12:20 Stl C. Difficile GDH Ag POSITIVE (NEGATIVE) 12/14/19 19:20 Stl C.difficile Tox A&B NEGATIVE (NEGATIVE) 12/14/19 19:20 Stl C.difficile Tox PCR POSITIVE (NEGATIVE) 12/14/19 19:20 Time Trough Drawn 2242 12/12/19 22:42 Vancomycin Trough 14.0 ug/mL (5.0-20.0) 12/12/19 22:42 Influenza A (Rapid) NEGATIVE (NEGATIVE) 12/08/19 21:54 Influenza B (Rapid) NEGATIVE (NEGATIVE) 12/08/19 21:54 Slides for Path Review Cancelled 12/15/19 06:38 Impressions: Chest X-Ray 12/10/19 00:00 IMPRESSION: Clear lungs. Plan Health Concerns: End of life care in hospice program. Plan of Treatment: Placement in hospice program. Goals: Palliative care. Time Spent: Greater than 30 Minutes - Care coordination with hospice care. Stroke Is this a Stroke Patient?: No Acute Heart Failure - Is this a Heart Failure Patient?: No
[2019-12-25 16:03] VITALS: BP 90/67
== END 2019-12-25 16:35 | disposition hospice, home (50) | DRG 687 ==
LOC: ER 19:14 → EH 21:08 → 3N 12-09 00:25 → ICU 12-10 05:22 → 5 12-13 17:59 → 3W 12-14 17:26
PROVIDERS: ADMIT Internal Medicine Geriatric Medicine; ATTEND Internal Medicine Geriatric Medicine
DX: C79.11 Secondary malignant neoplasm of bladder (principal); C79.31 Secondary malignant neoplasm of brain; C79.51 Secondary malignant neoplasm of bone; I47.1 Supraventricular tachycardia; E46 Unspecified protein-calorie malnutrition; I42.9 Cardiomyopathy, unspecified; I30.9 Acute pericarditis, unspecified; A04.72 Enterocolitis due to Clostridium difficile, not specified as recurrent; Z68.1 Body mass index [BMI] 19.9 or less, adult; G89.3 Neoplasm related pain (acute) (chronic); E11.9 Type 2 diabetes mellitus without complications; C61 Malignant neoplasm of prostate; R33.9 Retention of urine, unspecified; E78.1 Pure hyperglyceridemia; I10 Essential (primary) hypertension; Z79.4 Long term (current) use of insulin; M19.019 Primary osteoarthritis, unspecified shoulder; Z98.890 Other specified postprocedural states; Z79.899 Other long term (current) drug therapy; E83.51 Hypocalcemia; E83.42 Hypomagnesemia; E83.39 Other disorders of phosphorus metabolism; Z87.891 Personal history of nicotine dependence; Z82.49 Family history of ischemic heart disease and other diseases of the circulatory system; Z66 Do not resuscitate; Z85.07 Personal history of malignant neoplasm of pancreas
CPT/HCPCS: 36415; 51702; 71045; 80048; 80053; 80069; 80202; 81001; 82040; 82330; 82565; 82803; 82962; 83605; 83735; 84100; 85025; 85027; 85610; 85652; 86140; 87040; 87086; 87324; 87449; 87493; 87804; 93005; 93010; 93308; 96365; 96375; 99291; J0610; A9270 GY; C1758; J0153; J0282; J0692; J1160; J1170; J1642; J1644; J1650; J1815; J2270; J2405; J3010; J3370; J3475; J3480; J3490; J7030; J7040; J7060; J7120; J7121